=== PATIENT | male | born 1940 | race Caucasian/White ===

== ENCOUNTER 2018-04-22 08:01 | Emergency (ER) | payer OTHER ==
--- OUTSIDE RECORDS SUMMARY | 2018-04-22 08:05 | XMS REPORT | Clinical Summary ---
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 - Goal of therapy for Type II Diabetes Less than 7%-Goal of therapy for Type I Diabetes Less than 8%-Acceptable control for Type I or Type II Diabetes Greater than 8%-Unacceptable control; action indicated. (ADA94) Specimen Performing Laboratory Blood [facility] DEPARTMENT OF PATHOLOGY AND GENOMIC MEDICINE [address] [place] [address] Lipid panel (07/17/2017 4:11 AM) Component Value Ref Range Cholesterol 124 <200 mg/dL Triglycerides 85 <150 mg/dL HDL cholesterol 35 (L) >40 mg/dL LDL cholesterol 77Comment: Result obtained by direct LDL <100 mg/dL measurement Lipid panel interpretation SeeBelow Comment: Total Cholesterol (mg/dL) <200 Desirable 658-326Sftqpkzada-czbt >=240High Triglycerides (mg/dL) <150 Normal 912-157Rapnsyrpii-wykw 200-499High >=500Very high HDL Cholesterol (mg/dL) <40Low (male) <40Low (female) LDL Cholesterol (mg/dL) <100 Optimal 100-129Near or above optimal 261-057Iiuudbdfll-rpdw 160-189High >=190Very high Risk Catergories that modify LDL goals. Risk CatergoriesLDL goal (mg/dL) CHD and CHD risk equivalent<100 (10-year risk >20%) Multiple (2+) risk factors <130 (10-year risk=<20%) 0-1 risk factors <160 (<10-year risk) Defining levels of lipids in metabolic syndrome Triglycerides>=150 mg/dL HDL Cholesterol Men<40 mg/dL Women<40 mg/dL Non-HDL cholesterol is a second target for therapy in persons with high triglycerides (>=200 mg/dL) Specimen Performing Laboratory Plasma specimen [facility] DEPARTMENT OF PATHOLOGY AND GENOMIC MEDICINE [address] [place] [address] XR Chest 1 Vw Portable (07/16/2017 10:24 PM) Specimen Performing Laboratory [facility] [address] [place] [address] Narrative EXAMINATION: XR CHEST 1 VW PORTABLE CLINICAL HISTORY: History of pulmonary embolus COMPARISON: PA and lateral chest, obtained on 09/18/2009. FINDINGS: Bedside examination again demonstrates mild cardiomegaly. Vascular congestion, pleural fluid and pneumothorax are not seen. Bibasilar volume loss or infiltrate, more prominent on the right, is seen. IMPRESSION: Basilar atelectasis or infiltrate, greater on the right. [facility]-[id number] Procedure Note Interface, Radiology Results Incoming - 07/17/2017 12:16 AM CDT EXAMINATION: XR CHEST 1 VW PORTABLE CLINICAL HISTORY: History of pulmonary embolus COMPARISON: PA and lateral chest, obtained on 09/18/2009. FINDINGS: Bedside examination again demonstrates mild cardiomegaly. Vascular congestion, pleural fluid and pneumothorax are not seen. Bibasilar volume loss or infiltrate , more prominent on the right, is seen. IMPRESSION: Basilar atelectasis or infiltrate, greater on the right. [facility]-[id number] Notify Home Health (06/30/2017)Only the most recent of4 resultswithin the time period is included.Miscellaneous Lab Result (06/21/2017)Only the most recent of3 resultswithin the time period is included. Specimen Performing Laboratory Blood Home health needs (specify) (06/04/2017)Only the most recent of3 resultswithin the time period is included.MD certification IP hospital services (05/03/2017) Ambulatory referral to Home Health (04/30/2017)Only the most recent of2 resultswithin the time period is included.after 04/21/2017 Insurance Payer Benefit Plan / Group Subscriber ID Type Phone Address [facility] xxxxxxxxxxx [phone] [place], [place] [phone]
[2018-04-22 09:27] LABS: Absolute Lymphocytes (CBC) 1.3 K/uL (0.7-4.9); Absolute Monocytes 0.6 K/uL (0.1-1.3); Absolute Neutrophil 6.1 K/uL (1.8-8.0); Basophils % 0.5 % (0-1.3); Eosinophils % 1.1 % (0-4.4); Hematocrit 43.6 % (39.6-49.0); Lymphocytes % 15.8 % (15.3-44.8); MCH 31.7 pg (27.0-35.0); MCV 95.2 fL (80-100); MPV 7.8 fL (7.6-11.3); Monocytes % 7.5 % (3.3-12.3); RBC Red Blood Cell Count 4.57 M/uL (4.33-5.43)
[2018-04-22 09:28] LABS: Protime INR 3.82
--- NOTE | 2018-04-22 10:36 | EDPHYS ---
Physician Documentation [facility] Name: Elbert Miller Age: 77 yrs Sex: Male : 1940 Arrival Date: 04/22/2018 Time: 08:16 Bed 15 Private MD: ED Physician Todd Longo HPI: 04/22 10:30 This 77 yrs old Male presents to ER via EMS with complaints of Urinary gs Problem, Blood In Catheter. 10:30 The patient presents with a Sims catheter problem, draining bloody urine. Onset: The gs symptoms/episode began/occurred yesterday, last night. Modifying factors: The symptoms are alleviated by nothing, the symptoms are aggravated by nothing. Associated signs and symptoms: Pertinent positives: abdominal pain, now resolved, Pertinent negatives: fever. Severity of symptoms: At their worst the symptoms were moderate, in the emergency department the symptoms are unchanged. The patient has experienced similar episodes in the past, a few times. Historical: - Allergies: 08:23 chlorpromazine HCl; ae1 08:23 fluoxetine HCl; ae1 08:23 paroxetine HCl; ae1 08:23 Sulfa (Sulfonamide Antibiotics); ae1 - Home Meds: 08:46 phenazopyridine 200 mg Oral tab 1 tab 3 times per day [Active]; pantoprazole 40 mg Oral ae1 TbEC 1 tab once daily [Active]; trazodone 100 mg Oral tab 1 tab nightly [Active]; Cipro 500 mg Oral tab 1 tab every 12 hours [Active]; trimethoprim 100 mg Oral tab 1 tab daily [Active]; Multiple Vitamins oral tab [Active]; warfarin 5 mg Oral tab 1 tab once daily [Active]; sertraline 50 mg Oral tab 1 tab once daily [Active]; hydromorphone 4 mg Oral tab 1 tab every 6 hours [Active]; nitrofurantoin macrocrystal 100 mg Oral cap 1 cap q 12 hours [Active]; gabapentin 600 mg Oral tab 1 tab four times a day [Active]; Claritin-D 24 Hour 10-240 mg Oral Tb24 1 tab once daily [Active]; Vitamin D Oral [Active]; Iron CR Oral [Active]; Zantac 150 mg Oral tab 1 tab 2 times per day [Active]; metoprolol tartrate 25 mg Oral tab 1 tab 2 times per day [Active]; - PMHx: 08:23 blood clot in lungs; CHF; Hernia; Hypertension; lymphadema bilateral legs; neuropathy ae1 of right leg; PE; - Immunization history:: Adult Immunizations up to date. - Social history:: Smoking status: Patient/guardian denies using tobacco. - Ebola Screening: : Patient negative for fever greater than or equal to 101.5 degrees Fahrenheit, and additional compatible Ebola Virus Disease symptoms Patient denies exposure to infectious person Patient denies travel to an Ebola-affected area in the 21 days before illness onset. ROS: 10:30 All other systems are negative. gs Exam: 10:30 Head/Face: Normocephalic, atraumatic. Neck: Trachea midline, no thyromegaly or masses gs palpated, and no cervical lymphadenopathy. Supple, full range of motion without nuchal rigidity, or vertebral point tenderness. No Meningismus. Cardiovascular: Regular rate and rhythm with a normal S1 and S2. No gallops, murmurs, or rubs. Normal PMI, no JVD. No pulse deficits. Respiratory: Lungs have equal breath sounds bilaterally, clear to auscultation and percussion. No rales, rhonchi or wheezes noted. No increased work of breathing, no retractions or nasal flaring. Abdomen/GI: Soft, non-tender, with normal bowel sounds. No distension or tympany. No guarding or rebound. No evidence of tenderness throughout. 10:30 Constitutional: The patient appears alert, awake. 10:30 : a sims is noted, urine is clear, blood tinged. 10:30 Neuro: Exam negative for acute changes. Vital Signs: 08:17 BP 110 / 63; Pulse 108; Resp 19; Temp 97.6(O); Pulse Ox 97% on R/A; Weight 165.11 kg ae1 (R); Pain 6/10; 09:46 BP 102 / 87; Pulse 85; Resp 19 S; Pulse Ox 97% ; ae1 MDM: 08:59 Patient medically screened. gs 10:30 Data reviewed: vital signs, nurses notes. ED course: cleared with irrigation will hold gs coumadin and repeat inr wednesday. 04/22 09: Order name: CBC with Diff; Complete Time: 09:45 04/22 09: Order name: PT-INR; Complete Time: 09:45 04/22 09:01 Order name: Misc. Order: irrigate sims; Complete Time: 09:31 04/22 09:50 Order name: Urine Dipstick--Ancillary (enter results) bd Administered Medications: No medications were administered Disposition: 04/22/18 10:36 Discharged to Home. Impression: Hematuria, Urinary catheterization as the cause of abnormal reaction of the patient, or of later complication, without mention of misadventure at the time of the procedure. - Condition is Stable. - Discharge Instructions: Hematuria, Adult. - Medication Reconciliation Form, Thank You Letter, Antibiotic Education, Prescription Opioid Use form. - Follow up: Private Physician; When: 2 - 3 days; Reason: Re-evaluation by your physician. - Notes: hold coumadin today, get inr wednesday Signatures: Dispatcher [employer] EDBrooks Anderson RN RN ae1 Todd Longo MD MD Corrections: (The following items were deleted from the chart) 11:30 10:36 04/22/2018 10:36 Discharged to Home. Impression: Hematuria; Urinary ae1 catheterization as the cause of abnormal reaction of the patient, or of later complication, without mention of misadventure at the time of the procedure. Condition is Stable. Forms are Medication Reconciliation Form, Thank You Letter, Antibiotic Education, Prescription Opioid Use. Follow up: Private Physician; When: 2 - 3 days; Reason: Re-evaluation by your physician.
--- NOTE | 2018-04-22 10:36 | ER ---
Nurse's Notes [facility] Name: Elbert Miller Age: 77 yrs Sex: Male : 1940 Arrival Date: 04/22/2018 Time: 08:16 Bed 15 Private MD: Diagnosis: Hematuria;Urinary catheterization as the cause of abnormal reaction of the patient, or of later complication, without mention of misadventure at the time of the procedure Presentation: 04/22 08:24 Presenting complaint: Patient states: Patient reports blood in his Hannah appliance bag ae1 that started this morning when he woke up. Patient also reports lower abdominal pain. Transition of care: patient was not received from another setting of care. Onset of symptoms was April 22, 2018 at 06:00. Risk Assessment: Do you want to hurt yourself or someone else? Patient reports no desire to harm self or others. Initial Sepsis Screen: Does the patient meet any 2 criteria? HR > 90 bpm. Does the patient have a suspected source of infection? Yes: Dysuria/Frequency/Urgency/UTI Other: Patient is currently on a course of Bactrim for a UTI. Care prior to arrival: Medication(s) given: 100 mcg Fentanyl IVP at 0737 IV initiated. 22 GA, in the left forearm, Glucose check: 155. 08:24 Method Of Arrival: EMS: [facility] ae1 08:24 Acuity: [place] 3 ae1 Triage Assessment: 08:29 General: Appears in no apparent distress. comfortable, obese, unkempt, Behavior is ae1 calm, cooperative. Pain: Complains of pain in right lower quadrant and left lower quadrant Pain currently is 6 out of 10 on a pain scale. Pain began gradually. EENT: wears glasses. Neuro: Level of Consciousness is awake, alert, obeys commands, Oriented to person, place, time, situation. Cardiovascular:. Cardiovascular: Heart tones S1 S2 present Rhythm is irregular. Respiratory: Airway is patent Respiratory effort is even, unlabored, Respiratory pattern is regular, symmetrical. GI: Abdomen is round obese. : Hannah in place Urine is Dark Brownish Red urine Tissue and sediment noted in Hannah tubing. Reports pain in suprapubic area. Derm: Significant swelling and discoloration to the RADHA lower extremities. Skin in this area appears scaly, darkened and reddened. Musculoskeletal: Swelling present in right foot, left foot, right leg and left leg. Historical: - Allergies: 08:23 chlorpromazine HCl; ae1 08:23 fluoxetine HCl; ae1 08:23 paroxetine HCl; ae1 08:23 Sulfa (Sulfonamide Antibiotics); ae1 - Home Meds: 08:46 phenazopyridine 200 mg Oral tab 1 tab 3 times per day [Active]; pantoprazole 40 mg Oral ae1 TbEC 1 tab once daily [Active]; trazodone 100 mg Oral tab 1 tab nightly [Active]; Cipro 500 mg Oral tab 1 tab every 12 hours [Active]; trimethoprim 100 mg Oral tab 1 tab daily [Active]; Multiple Vitamins oral tab [Active]; warfarin 5 mg Oral tab 1 tab once daily [Active]; sertraline 50 mg Oral tab 1 tab once daily [Active]; hydromorphone 4 mg Oral tab 1 tab every 6 hours [Active]; nitrofurantoin macrocrystal 100 mg Oral cap 1 cap q 12 hours [Active]; gabapentin 600 mg Oral tab 1 tab four times a day [Active]; Claritin-D 24 Hour 10-240 mg Oral Tb24 1 tab once daily [Active]; Vitamin D Oral [Active]; Iron CR Oral [Active]; Zantac 150 mg Oral tab 1 tab 2 times per day [Active]; metoprolol tartrate 25 mg Oral tab 1 tab 2 times per day [Active]; - PMHx: 08:23 blood clot in lungs; CHF; Hernia; Hypertension; lymphadema bilateral legs; neuropathy ae1 of right leg; PE; - Immunization history:: Adult Immunizations up to date. - Social history:: Smoking status: Patient/guardian denies using tobacco. - Ebola Screening: : Patient negative for fever greater than or equal to 101.5 degrees Fahrenheit, and additional compatible Ebola Virus Disease symptoms Patient denies exposure to infectious person Patient denies travel to an Ebola-affected area in the 21 days before illness onset. Screenin:44 Abuse screen: Denies threats or abuse. Nutritional screening: No deficits noted. ae1 Tuberculosis screening: No symptoms or risk factors identified. Fall Risk No fall in past 12 months (0 pts). Secondary diagnosis (15 points) impaired mobility, IV access (20 points). Ambulatory Aid- Crutches/Cane/Walker (15 pts). Gait- Impaired (20 pts.). Mental Status- Oriented to own ability (0 pts). Assessment: 10:35 Reassessment: Patient appears in no apparent distress at this time. No changes from ae1 previously documented assessment. Patient and/or family updated on plan of care and expected duration. Pain level reassessed. 10:36 Reassessment: Patient states he is calling for a ride home. ae1 11:29 Reassessment: Report and hand off care to EMS. ae1 Vital Signs: 08:17 BP 110 / 63; Pulse 108; Resp 19; Temp 97.6(O); Pulse Ox 97% on R/A; Weight 165.11 kg ae1 (R); Pain 6/10; 09:46 BP 102 / 87; Pulse 85; Resp 19 S; Pulse Ox 97% ; ae1 ED Course: 08:16 Patient arrived in ED. ae1 08:16 Todd Longo MD is Attending Physician. 08:17 Brooks Gaspar RN is Primary Nurse. ae1 08:28 Triage completed. ae1 08:28 Arm band placed on right wrist. ae1 08:28 Bed in low position. Call light in reach. Side rails up X2. Pulse ox on. NIBP on. Warm ae1 blanket given. 08:37 Maintain EMS IV. Dressing intact. Site clean \T\ dry. Gauge \T\ site: 22 Left forearm . ae 1 09:30 190 mls sterile irrigation fluid used to irrigate Hannah, Approx 190 mls returned yellow ae1 urine. 09:36 Urine collected: Hannah catheter specimen, cloudy. 5 09:44 Warm blanket given. ae1 11:27 No provider procedures requiring assistance completed. IV discontinued, intact, ae1 bleeding controlled, No redness/swelling at site. Pressure dressing applied. Administered Medications: No medications were administered Outcome: 10:36 Discharge ordered by . 11:28 Discharged to home On stretcher with EMS ae1 11:28 Condition: stable 11:28 Discharge instructions given to patient, EMS, Instructed on discharge instructions, follow up and referral plans. Demonstrated understanding of instructions. 11:30 Patient left the ED. ae1 Signatures: Brooks Gaspar RN RN 1 Kayce Duncan [facility] Longo, Todd, MD MD gs
[2018-04-22 10:44] LABS: Urine Blood 3+ (NEG); Urine Glucose NEGATIVE (NEG); Urine Protein NEGATIVE (NEG); Urine Specific Gravity <1.005 (1.005-1.030)
[2018-04-22 11:36] VITALS: TEMP 97.6; O2SAT 97
[2018-04-22 11:37] VITALS: BP 102/87
== END 2018-04-22 11:30 | disposition home or self-care (01) ==
LOC: ER 08:01
DX: T83.098A Other mechanical complication of other urinary catheter, initial encounter (principal); I10 Essential (primary) hypertension; I50.9 Heart failure, unspecified; Z79.01 Long term (current) use of anticoagulants; Z88.2 Allergy status to sulfonamides; Z88.8 Allergy status to other drugs, medicaments and biological substances
CPT/HCPCS: 36415; 81003; 85025; 85610; 99284

== ENCOUNTER 2018-04-22 19:35 | Emergency (ER) | payer OTHER ==
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
[2018-04-22] MEDS ORDERED: NA CHLORIDE 0.9% 1,000 ML ONE (21:18)
[2018-04-22] MEDS ORDERED: ONDANSETRON 4 MG/2 ML VIAL ONE (21:18)
[2018-04-22] MEDS ORDERED: FENTANYL CITR 100 MCG/2 ML ONE (21:18)
[2018-04-22 21:34] LABS: Absolute Lymphocytes (CBC) 1.6 K/uL (0.7-4.9); Absolute Monocytes 0.8 K/uL (0.1-1.3); Absolute Neutrophil 5.6 K/uL (1.8-8.0); Basophils % 0.6 % (0-1.3); Eosinophils % 1.5 % (0-4.4); Lymphocytes % 19.4 % (15.3-44.8); MCH 32.5 pg (27.0-35.0); MCV 93.6 fL (80-100); MPV 7.5 fL (7.6-11.3); Monocytes % 9.5 % (3.3-12.3); RBC Red Blood Cell Count 4.38 M/uL (4.33-5.43)
[2018-04-22] MEDS ORDERED: CEFTRIAXONE/SWI 1gm 1 GM/10 ML SYR ONE (21:34)
[2018-04-22 21:35] LABS: Protime INR 3.54
[2018-04-22 21:45] LABS: Potassium 4.2 mEq/L (3.6-5.0)
[2018-04-22 21:48] LABS: Albumin 3.3 g/dL (3.2-5.5); Bilirubin Total 0.6 mg/dL (0.3-1.2); Protein, Total 6.9 g/dL (6.0-8.3)
[2018-04-22 22:05] LABS: Urine Blood 3+ (NEG); Urine Glucose NEGATIVE (NEG); Urine Protein NEGATIVE (NEG)
[2018-04-22] MEDS ORDERED: AMOX/K CLAV 875 MG TAB ONE (22:53)
--- NOTE | 2018-04-22 23:23 | ER ---
Nurse's Notes [facility] Name: Elbert Miller Age: 77 yrs Sex: Male : 1940 Arrival Date: 04/22/2018 Time: 19:53 Bed 13 Private MD: Diagnosis: Cystitis;Hematuria;Coagulation defect, unspecified-coumadin therapy;Obesity, unspecified Presentation: 04/22 19:53 Presenting complaint: EMS states: he was here this morning for hematuria and UTI for a mg2 month. He is already on antibiotic at home. He has Hannah catheter in situ inserted last April 04, 2018. He is also complaining of lower back pain and suprapubic pain. Transition of care: patient was not received from another setting of care. Onset of symptoms was April 20, 2018. Risk Assessment: Do you want to hurt yourself or someone else? Patient reports no desire to harm self or others. Initial Sepsis Screen: Does the patient meet any 2 criteria? No. Patient's initial sepsis screen is negative. Does the patient have a suspected source of infection? No. Patient's initial sepsis screen is negative. Care prior to arrival: None. 19:53 Method Of Arrival: EMS: [facility] mg2 19:53 Acuity: [place] 3 mg2 Historical: - Allergies: 20:04 chlorpromazine HCl; mg2 20:04 fluoxetine HCl; mg2 20:04 Sulfa (Sulfonamide Antibiotics); mg2 20:04 paroxetine HCl; mg2 - Home Meds: 20:04 Ambien 10 mg Oral tab 1 tab once daily [Active]; Cipro 500 mg Oral tab 1 tab every 12 mg2 hours [Active]; Claritin-D 24 Hour 10-240 mg Oral Tb24 1 tab once daily [Active]; Coumadin 2 mg Oral tab 1 tab 6 days a week Wed-Wed, 1/2 tab on Wednesday [Active]; gabapentin 600 mg Oral tab 1 tab four times a day [Active]; hydromorphone 8 mg Oral tab 1 tab every 6 hours [Active]; hydromorphone 4 mg Oral tab 1 tab every 6 hours [Active]; Iron CR Oral [Active]; lorazepam 0.5 mg Oral tab 1 tab 3 times per day [Active]; metoprolol tartrate 25 mg Oral tab 1 tab 2 times per day [Active]; Multiple Vitamins Oral tab [Active]; nitrofurantoin macrocrystal 100 mg Oral cap 1 cap q 12 hours [Active]; [place] 10-325 mg Oral tab 1 tab every 6 hours [Active]; pantoprazole 40 mg Oral TbEC 1 tab once daily [Active]; phenazopyridine 200 mg Oral tab 1 tab 3 times per day [Active]; sertraline 50 mg Oral tab 1 tab once daily [Active]; tramadol 50 mg Oral tab 1 tab every 6 hours [Active]; trazodone 100 mg Oral tab 1 tab nightly [Active]; trimethoprim 100 mg Oral tab 1 tab daily [Active]; Vitamin D Oral [Active]; warfarin 5 mg Oral tab 1 tab once daily [Active]; Zantac 150 mg Oral tab 1 tab 2 times per day [Active]; - PMHx: 20:04 blood clot in lungs; CHF; Hernia; Hypertension; lymphadema bilateral legs; neuropathy 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 - Social history:: Smoking status: Patient/guardian denies using. - Ebola Screening: : No symptoms or risks identified at this time. Screenin:11 Abuse screen: Denies threats or abuse. Denies injuries from another. Nutritional mg2 screening: No deficits noted. Tuberculosis screening: No symptoms or risk factors identified. Fall Risk Gait- Weak (10 pts.). Assessment: 20:11 General: Appears in no apparent distress. comfortable, Behavior is calm, cooperative. mg2 Pain: Complains of pain in abdomen and back Pain does not radiate. Pain currently is 9 out of 10 on a pain scale. Quality of pain is described as aching, Pain began gradually, Is intermittent. Neuro: Level of Consciousness is awake, alert, obeys commands, Oriented to person, place, time, situation. Cardiovascular: Capillary refill < 3 seconds Patient's skin is warm and dry. Respiratory: Airway is patent Respiratory effort is even, unlabored, Respiratory pattern is regular, symmetrical. GI: Abdomen is pain. : Hannah in place Urine is blood tinged. EENT: No signs and/or symptoms were reported regarding the EENT system. Derm: Skin is intact, Skin is pink, warm \T\ dry. normal. Musculoskeletal: No signs and/or symptoms reported regarding the musculoskeletal system. 20:54 Reassessment: Patient appears in no apparent distress at this time. Patient and/or mg2 family updated on plan of care and expected duration. Pain level reassessed. Patient is alert, oriented x 3, equal unlabored respirations, skin warm/dry/pink. Pt continues to await initial assessment by ERP. 21:33 Reassessment: Patient appears in no apparent distress at this time. Patient and/or aa1 family updated on plan of care and expected duration. Pain level reassessed. Patient is alert, oriented x 3, equal unlabored respirations, skin warm/dry/pink. Awaiting lab results and CT scan. 21:40 Reassessment: Patient appears in no apparent distress at this time. Pt taken to CT. aa1 23:56 Reassessment: patient is for discharge but nobody will come and take him home til 2 am. mg2 charge nurse agreed that patient can stay in ed til that person comes. 0602 00:42 Reassessment: Patient appears in no apparent distress at this time. Patient and/or aa1 family updated on plan of care and expected duration. Pain level reassessed. Patient is alert, oriented x 3, equal unlabored respirations, skin warm/dry/pink. Pt still waiting for ride home. Requesting IV and monitoring equipment be removed since he is just waiting for transportation home. 01:43 Reassessment: Patient appears in no apparent distress at this time. Patient and/or aa1 family updated on plan of care and expected duration. Pain level reassessed. Patient is alert, oriented x 3, equal unlabored respirations, skin warm/dry/pink. Pt continues to await transportation home. Hannah bag drained of sera urine. Pt still refusing monitoring equipment for v/s. 02:45 Reassessment: Patient appears in no apparent distress at this time. Patient and/or aa1 family updated on plan of care and expected duration. Pain level reassessed. Patient is alert, oriented x 3, equal unlabored respirations, skin warm/dry/pink. Pt continues to await transportation home; still refusing monitoring equipment for v/s. 03:46 Reassessment: Patient appears in no apparent distress at this time. Patient and/or aa1 family updated on plan of care and expected duration. Pain level reassessed. Patient is alert, oriented x 3, equal unlabored respirations, skin warm/dry/pink. Pt continues to await transportation home; still refusing monitoring equipment for v/s. 04:37 Reassessment: Patient appears in no apparent distress at this time. Patient and/or aa1 family updated on plan of care and expected duration. Pain level reassessed. Patient is alert, oriented x 3, equal unlabored respirations, skin warm/dry/pink. Pt's family present for d/c. Hannah emptied of yellow urine. Vital Signs: 04/22 20:05 BP 143 / 111; Pulse 79; Resp 18; Temp 97.9(O); Pulse Ox 98% on R/A; Weight 165.56 kg; mg2 Height 5 ft. 10 in. (177.80 cm); Pain 9/10; 21:00 BP 105 / 56; Pulse 95; Resp 18; Pulse Ox 96% on R/A; Pain 9/10; aa1 21:35 BP 111 / 63; Pulse 97; Resp 20; Pulse Ox 97% on R/A; aa1 22:40 BP 129 / 80; Pulse 89; Resp 18; Pulse Ox 97% ; Pain 7/10; mg2 04/23 00:09 BP 131 / 99; Pulse 66; Resp 18; Pulse Ox 97% on R/A; Pain 0/10; mg2 01:00 BP 143 / 92; Pulse 96; Resp 18; Pulse Ox 98% on R/A; Pain 5/10; aa1 04:47 BP 138 / 89; Pulse 97; Resp 20; Temp 98.0; Pulse Ox 97% on R/A; aa1 04/22 20:05 Body Mass Index 52.37 (165.56 kg, 177.80 cm) mg2 ED Course: 04/22 19:53 Patient arrived in ED. mg2 19:56 Triage completed. mg2 19:57 Ross Mckenna MD is Attending Physician. deborah 20:06 Arm band placed on right wrist. Patient placed in the treatment room, on a stretcher, mg2 in view of staff members, on pulse oximetry. 20:10 Rod Talley, PAU is Primary Nurse. mg2 20:11 Patient has correct armband on for positive identification. Bed in low position. Call ea light in reach. Side rails up X2. 21:10 Urine collected: Hannah catheter specimen, cloudy, sediment noted. aa1 21:24 Inserted saline lock: 22 gauge in left antecubital area, using aseptic technique. Blood ea collected. 22:05 CT Stone Protocol In Process Unspecified. EDMS 04/23 01:15 IV discontinued, intact, bleeding controlled, No redness/swelling at site. Pressure aa1 dressing applied. 04:48 No provider procedures requiring assistance completed. aa1 Administered Medications: 04/22 21:29 Drug: NS 0.9% 1000 ml Route: IV; Rate: 125 ml/hr; Site: left antecubital; mg2 21:29 Drug: fentaNYL (PF) 50 mcg Route: IVP; Site: left antecubital; mg2 22:57 Follow up: Response: No adverse reaction; Pain is decreased mg2 21:29 Drug: Zofran 4 mg Route: IVP; Site: left antecubital; mg2 22:49 Follow up: Response: No adverse reaction mg2 21:37 Drug: Rocephin - (cefTRIAXone) 1 grams Route: IVPB; Infused Over: 30 mins; Site: left aa1 antecubital; 22:56 Follow up: Response: No adverse reaction mg2 22:56 Drug: Augmentin 875 mg Route: PO; mg2 23:56 Follow up: Response: No adverse reaction mg2 Outcome: 23:22 Discharge ordered by . deborah 04/23 04:48 Discharged to home via wheelchair, with family. aa1 Condition: good Discharge instructions given to patient, family, Instructed on discharge instructions, follow up and referral plans. medication usage, Demonstrated understanding of instructions, follow-up care, medications, Prescriptions given X 2. 04:49 Patient left the ED. aa1 Addendum: 04/27/2018 17:17 Addendum: Culture Results: Positive urine culture. Phone call Attempt #1 Spoke with s s patient who asks to have culture report faxed over to urologist in [place], Dr. Celso Stoner. Will fax over culture report. Signatures: Dispatcher [employer] EDMS Jessika Almanza RN RN aa1 Ross Mckenna MD MD cha Smirch, Shelby, RN RN ss Antunez, Elena, RN RN ea Gardose, Michele, RN RN mg2 Corrections: (The following items were deleted from the chart) 04/22 23:12 22:40 Pulse 89bpm; Resp 18bpm; Pulse Ox 97%; mg2 mg2 04/23 00:07 04/22 23:56 Reassessment: patient is for discharge but nobody will come and take him mg2 home til 2 am. charge nurse to be informed. mg2
--- NOTE | 2018-04-22 23:23 | EDPHYS ---
Physician Documentation [facility] Name: Elbert Miller Age: 77 yrs Sex: Male : 1940 Arrival Date: 04/22/2018 Time: 19:53 Bed 13 Private MD: ED Physician Ross Mckenna HPI: 04/22 21:11 This 77 yrs old Male presents to ER via EMS with complaints of hematuria, deborah sims pain. 21:11 The patient presents with urinary symptoms, dysuria, hematuria. Onset: The deborah symptoms/episode began/occurred 2 day(s) ago. Modifying factors: The symptoms are alleviated by nothing, the symptoms are aggravated by nothing. Associated signs and symptoms: The patient has no apparent associated signs or symptoms. Severity of symptoms: At their worst the symptoms were mild, in the emergency department the symptoms are unchanged. The patient has not experienced similar symptoms in the past. Historical: - Allergies: 20:04 chlorpromazine HCl; mg2 20:04 fluoxetine HCl; mg2 20:04 Sulfa (Sulfonamide Antibiotics); mg2 20:04 paroxetine HCl; mg2 - Home Meds: 20:04 Ambien 10 mg Oral tab 1 tab once daily [Active]; Cipro 500 mg Oral tab 1 tab every 12 mg2 hours [Active]; Claritin-D 24 Hour 10-240 mg Oral Tb24 1 tab once daily [Active]; Coumadin 2 mg Oral tab 1 tab 6 days a week Wed-Wed, 1/2 tab on Wednesday [Active]; gabapentin 600 mg Oral tab 1 tab four times a day [Active]; hydromorphone 8 mg Oral tab 1 tab every 6 hours [Active]; hydromorphone 4 mg Oral tab 1 tab every 6 hours [Active]; Iron CR Oral [Active]; lorazepam 0.5 mg Oral tab 1 tab 3 times per day [Active]; metoprolol tartrate 25 mg Oral tab 1 tab 2 times per day [Active]; Multiple Vitamins Oral tab [Active]; nitrofurantoin macrocrystal 100 mg Oral cap 1 cap q 12 hours [Active]; [place] 10-325 mg Oral tab 1 tab every 6 hours [Active]; pantoprazole 40 mg Oral TbEC 1 tab once daily [Active]; phenazopyridine 200 mg Oral tab 1 tab 3 times per day [Active]; sertraline 50 mg Oral tab 1 tab once daily [Active]; tramadol 50 mg Oral tab 1 tab every 6 hours [Active]; trazodone 100 mg Oral tab 1 tab nightly [Active]; trimethoprim 100 mg Oral tab 1 tab daily [Active]; Vitamin D Oral [Active]; warfarin 5 mg Oral tab 1 tab once daily [Active]; Zantac 150 mg Oral tab 1 tab 2 times per day [Active]; - PMHx: 20:04 blood clot in lungs; CHF; Hernia; Hypertension; lymphadema bilateral legs; neuropathy 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 - Social history:: Smoking status: Patient/guardian denies using. - Ebola Screening: : No symptoms or risks identified at this time. ROS: 21:13 Constitutional: Negative for fever, chills, and weight loss, Eyes: Negative for injury, deborah pain, redness, and discharge, ENT: Negative for injury, pain, and discharge, Neck: Negative for injury, pain, and swelling, Cardiovascular: Negative for chest pain, palpitations, and edema, Respiratory: Negative for shortness of breath, cough, wheezing, and pleuritic chest pain, Abdomen/GI: Negative for abdominal pain, nausea, vomiting, diarrhea, and constipation, Back: Negative for injury and pain, MS/Extremity: Negative for injury and deformity, Skin: Negative for injury, rash, and discoloration, Neuro: Negative for headache, weakness, numbness, tingling, and seizure, Psych: Negative for depression, anxiety, suicide ideation, homicidal ideation, and hallucinations, Allergy/Immunology: Negative for hives, rash, and allergies, Endocrine: Negative for neck swelling, polydipsia, polyuria, polyphagia, and marked weight changes, Hematologic/Lymphatic: Negative for swollen nodes, abnormal bleeding, and unusual bruising. 21:13 : Positive for hematuria, of the suprapubic area. Exam: 21:13 Constitutional: This is a well developed, well nourished patient who is awake, alert, deborah and in no acute distress. Head/Face: Normocephalic, atraumatic. Eyes: Pupils equal round and reactive to light, extra-ocular motions intact. Lids and lashes normal. Conjunctiva and sclera are non-icteric and not injected. Cornea within normal limits. Periorbital areas with no swelling, redness, or edema. ENT: Nares patent. No nasal discharge, no septal abnormalities noted. Tympanic membranes are normal and external auditory canals are clear. Oropharynx with no redness, swelling, or masses, exudates, or evidence of obstruction, uvula midline. Mucous membranes moist. Neck: Trachea midline, no thyromegaly or masses palpated, and no cervical lymphadenopathy. Supple, full range of motion without nuchal rigidity, or vertebral point tenderness. No Meningismus. Chest/axilla: Normal chest wall appearance and motion. Nontender with no deformity. No lesions are appreciated. Cardiovascular: Regular rate and rhythm with a normal S1 and S2. No gallops, murmurs, or rubs. Normal PMI, no JVD. No pulse deficits. Respiratory: Lungs have equal breath sounds bilaterally, clear to auscultation and percussion. No rales, rhonchi or wheezes noted. No increased work of breathing, no retractions or nasal flaring. Back: No spinal tenderness. No costovertebral tenderness. Full range of motion. Male : Normal genitalia with no discharge or lesions. Skin: Warm, dry with normal turgor. Normal color with no rashes, no lesions, and no evidence of cellulitis. MS/ Extremity: Pulses equal, no cyanosis. Neurovascular intact. Full, normal range of motion. Neuro: Awake and alert, GCS 15, oriented to person, place, time, and situation. Cranial nerves II-XII grossly intact. Motor strength 5/5 in all extremities. Sensory grossly intact. Cerebellar exam normal. Normal gait. Psych: Awake, alert, with orientation to person, place and time. Behavior, mood, and affect are within normal limits. 21:13 Abdomen/GI: Inspection: distension, Bowel sounds: normal, Palpation: moderate abdominal tenderness, Liver: no appreciated palpable abnormalities, Hernia: not appreciated. Vital Signs: 20:05 BP 143 / 111; Pulse 79; Resp 18; Temp 97.9(O); Pulse Ox 98% on R/A; Weight 165.56 kg; mg2 Height 5 ft. 10 in. (177.80 cm); Pain 9/10; 21:00 BP 105 / 56; Pulse 95; Resp 18; Pulse Ox 96% on R/A; Pain 9/10; aa1 21:35 BP 111 / 63; Pulse 97; Resp 20; Pulse Ox 97% on R/A; aa1 22:40 BP 129 / 80; Pulse 89; Resp 18; Pulse Ox 97% ; Pain 7/10; mg2 04/23 00:09 BP 131 / 99; Pulse 66; Resp 18; Pulse Ox 97% on R/A; Pain 0/10; mg2 01:00 BP 143 / 92; Pulse 96; Resp 18; Pulse Ox 98% on R/A; Pain 5/10; aa1 04:47 BP 138 / 89; Pulse 97; Resp 20; Temp 98.0; Pulse Ox 97% on R/A; aa1 04/22 20:05 Body Mass Index 52.37 (165.56 kg, 177.80 cm) mg2 MDM: 04/22 19:57 Patient medically screened. [facility] 21:14 Data reviewed: vital signs, nurses notes, lab test result(s), radiologic studies, CT deborah scan. 04/22 21:09 Order name: CBC with Diff; Complete Time: 22:42 [facility] 04/22 21:09 Order name: Comprehensive Metabolic Panel; Complete Time: 22:42 [facility] 04/22 21:09 Order name: Urine Culture [facility] 04/22 21:09 Order name: CT Stone Protocol [facility] 04/22 21:14 Order name: PT-INR; Complete Time: 22:42 [facility] 04/22 21:22 Order name: Urine Dipstick--Ancillary (enter results); Complete Time: 22:42 04/22 21:09 Order name: Urine Dipstick-Ancillary (obtain specimen); Complete Time: 21:19 [facility] Administered Medications: 21:29 Drug: NS 0.9% 1000 ml Route: IV; Rate: 125 ml/hr; Site: left antecubital; mg2 21:29 Drug: fentaNYL (PF) 50 mcg Route: IVP; Site: left antecubital; mg2 22:57 Follow up: Response: No adverse reaction; Pain is decreased mg2 21:29 Drug: Zofran 4 mg Route: IVP; Site: left antecubital; mg2 22:49 Follow up: Response: No adverse reaction mg2 21:37 Drug: Rocephin - (cefTRIAXone) 1 grams Route: IVPB; Infused Over: 30 mins; Site: left aa1 antecubital; 22:56 Follow up: Response: No adverse reaction mg2 22:56 Drug: Augmentin 875 mg Route: PO; mg2 23:56 Follow up: Response: No adverse reaction mg2 Disposition: 04/22/18 23:22 Discharged to Home. Impression: Cystitis, Hematuria, Coagulation defect, unspecified - coumadin therapy, Obesity, unspecified. - Condition is Stable. - Discharge Instructions: Dysuria, Hematuria, Adult, Obesity. - Prescriptions for Augmentin 500- 125 mg Oral Tablet - take 1 tablet by ORAL route every 12 hours for 7 days; 14 tablet. Macrobid 100 mg Oral Capsule - take 1 capsule by ORAL route every 12 hours for 7 days; 14 capsule. - Medication Reconciliation Form, Thank You Letter, Antibiotic Education, Prescription Opioid Use form. - Follow up: Private Physician; When: 2 - 3 days; Reason: Recheck today's complaints, Continuance of care, Re-evaluation by your physician. - Problem is new. - Symptoms have improved. Signatures: Dispatcher [employer] EDMS Jessika Almanza RN RN aa1 Ross Mckenna MD MD cha Gardose, Michele, RN RN mg2 Corrections: (The following items were deleted from the chart) 04/23 04:49 04/22 23:22 04/22/2018 23:22 Discharged to Home. Impression: Cystitis; Hematuria; aa1 Coagulation defect, unspecified - coumadin therapy; Obesity, unspecified. Condition is Stable. Discharge Instructions: Dysuria, Hematuria, Adult. Prescriptions for Augmentin 500-125 mg Oral Tablet - take 1 tablet by ORAL route every 12 hours for 7 days; 14 tablet, Macrobid 100 mg Oral Capsule - take 1 capsule by ORAL route every 12 hours for 7 days; 14 capsule. and Forms are Medication Reconciliation Form, Thank You Letter, Antibiotic Education, Prescription Opioid Use. Follow up: Private Physician; When: 2 - 3 days; Reason: Recheck today's complaints, Continuance of care, Re-evaluation by your physician. Problem is new. Symptoms have improved. deborah
[2018-04-23 04:59] VITALS: BP 138/89; TEMP 98; O2SAT 97
--- NOTE | 2018-04-23 09:36 | RAD REPORT ---
EXAM DESCRIPTION: CT - Stone Protocol - 04/23/2018 3:24 am CLINICAL HISTORY: Abdominal pain, back pain, history of UTI A preliminary written report was provided at the time of the study, and the report was reviewed prio r to final dictation. COMPARISON: CT July 2016 TECHNIQUE: Axial [address] imaging of the abdomen and pelvis was performed without IV contrast. No IV contrast was given because of allergy, abnormal renal function, patient refusal or physician re quest. Oral contrast was given. All CT scans are performed using dose optimization technique as appropriate and may include automated exposure control or mA/KV adjustment according to patient size. FINDINGS: No suspicious findings in the lung bases. The liver, spleen and pancreas show no acute findings on non-contrast imaging. Fat infiltration of th e pancreas is again noted. Gallbladder is absent. No biliary tree dilatation. No hydronephrosis or suspicious renal mass. No significant adrenal finding. Isodense renal masses an d pyelonephritis cannot be excluded in the absence of IV contrast. Urinary bladder is contracted arou nd a Hannah catheter. Artifacts are present along the floor the pelvis to patient's large body habitus . Postsurgical changes are noted to the stomach. Stomach is compartmentalized with a large amount of fl uid filling both compartments. No gastric wall thickening or mass. Bowel is only partially imaged. Rusty brock has a very large panniculus with much of the bowel extending off of the left-side [id number] . Attempts to position the patient to better image the bowel and panniculus were unsuccessful as the patient indicated he was in too much pain. Imaged portions of the bowel and peritoneal cavity showed no acute findings. No free air is identified. Most of the anterior abdominal wall cannot be imaged. T here is a very thin fascial layer that is partially imaged. No bulky lymphadenopathy or mass identifi able. Disc and bony degenerative changes are present. IMPRESSION: No acute abdominal or pelvic finding seen; however, the exam is substantially limit. The patient has very large panniculus which places much of the bowel and abdominal wall outside of th e field of view. Patient was unable to tolerate repositioning of the panniculus due to pain. Nonacute findings are detailed in the body of the report and stable from comparison. Full assessment is limited is the absence of IV contrast.
== END 2018-04-23 04:49 | disposition home or self-care (01) ==
LOC: ER 19:35
DX: N30.91 Cystitis, unspecified with hematuria (principal); D68.9 Coagulation defect, unspecified; Z79.01 Long term (current) use of anticoagulants; E66.9 Obesity, unspecified; I10 Essential (primary) hypertension; Z88.2 Allergy status to sulfonamides; Z88.8 Allergy status to other drugs, medicaments and biological substances
CPT/HCPCS: 36415; 74176; 76377; 80053; 81003; 85025; 85610; 87077; 87086; 87088; 87186; 96374; 96375; 99284; J0696; J2405; J3010; J7030

== ENCOUNTER 2018-04-28 19:49 | Inpatient (IN) | payer OTHER ==
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
[2018-04-28 21:01] LABS: Urine Blood TRACE (NEG); Urine Glucose NEGATIVE (NEG); Urine Protein NEGATIVE (NEG); Urine Specific Gravity 1.015 (1.005-1.030)
--- NOTE | 2018-04-28 21:02 | EDPHYS ---
Physician Documentation [facility] Name: Elbert Miller Age: 77 yrs Sex: Male : 1940 Arrival Date: 04/28/2018 Time: 19:54 Bed 14 Private MD: ED Physician Ross Mckenna HPI: 04/28 20:52 This 77 yrs old Male presents to ER via EMS with complaints of Urinary deborah Problem. 20:52 The patient presents with a Sims catheter problem, draining cloudy urine, flank pain, deborah of the left mid back and right mid back, urinary symptoms, dysuria, has sims. Onset: The symptoms/episode began/occurred 3 day(s) ago. Modifying factors: The symptoms are alleviated by nothing, the symptoms are aggravated by nothing. The patient presents with pain that is chronic, with no known mechanism of injury, and decreased range of motion. The symptoms are located in the lumbar area, left low back, left mid back, right mid back and right low back. Onset: The symptoms/episode began/occurred 2 week(s) ago. The pain does not radiate. Severity of symptoms: At their worst the symptoms were mild, moderate, in the emergency department the symptoms are unchanged. Historical: - Allergies: 19:59 chlorpromazine HCl; rv 19:59 fluoxetine HCl; rv 19:59 paroxetine HCl; rv 19:59 Sulfa (Sulfonamide Antibiotics); rv - Home Meds: 20:16 Ambien 10 mg Oral tab 1 tab once daily [Active]; Cipro 500 mg Oral tab 1 tab every 12 bs1 hours [Active]; Claritin-D 24 Hour 10-240 mg Oral Tb24 1 tab once daily [Active]; Coumadin 2 mg Oral tab 1 tab 6 days a week Wed-Wed, 1/2 tab on Wednesday [Active]; gabapentin 600 mg Oral tab 1 tab four times a day [Active]; hydromorphone 8 mg Oral tab 1 tab every 6 hours [Active]; hydromorphone 4 mg Oral tab 1 tab every 6 hours [Active]; Iron CR Oral [Active]; lorazepam 0.5 mg Oral tab 1 tab 3 times per day [Active]; metoprolol tartrate 25 mg Oral tab 1 tab 2 times per day [Active]; Multiple Vitamins Oral tab [Active]; nitrofurantoin macrocrystal 100 mg Oral cap 1 cap q 12 hours [Active]; Beaver 10-325 mg Oral tab 1 tab every 6 hours [Active]; pantoprazole 40 mg Oral TbEC 1 tab once daily [Active]; phenazopyridine 200 mg Oral tab 1 tab 3 times per day [Active]; sertraline 50 mg Oral tab 1 tab once daily [Active]; tramadol 50 mg Oral tab 1 tab every 6 hours [Active]; trazodone 100 mg Oral tab 1 tab nightly [Active]; trimethoprim 100 mg Oral tab 1 tab daily [Active]; Vitamin D Oral [Active]; warfarin 5 mg Oral tab 1 tab once daily [Active]; Zantac 150 mg Oral tab 1 tab 2 times per day [Active]; - PMHx: 19:59 blood clot in lungs; CHF; Hernia; Hypertension; lymphadema bilateral legs; neuropathy rv of right leg; PE; 20:16 Atrial Fib; restless leg syndrome; spinal stenosis; herniated disc; Arthritis; bs1 - PSHx: 20:16 shoulder sx; Cholecystectomy; bs1 - Immunization history:: Adult Immunizations up to date. - Social history:: Smoking status: Patient/guardian denies using tobacco. - Ebola Screening: : Patient negative for fever greater than or equal to 101.5 degrees Fahrenheit, and additional compatible Ebola Virus Disease symptoms Patient denies exposure to infectious person Patient denies travel to an Ebola-affected area in the 21 days before illness onset No symptoms or risks identified at this time. - Family history:: not pertinent. ROS: 20:52 Constitutional: Negative for fever, chills, and weight loss, Eyes: Negative for injury, deborah pain, redness, and discharge, ENT: Negative for injury, pain, and discharge, Neck: Negative for injury, pain, and swelling, Cardiovascular: Negative for chest pain, palpitations, and edema, Respiratory: Negative for shortness of breath, cough, wheezing, and pleuritic chest pain, Abdomen/GI: Negative for abdominal pain, nausea, vomiting, diarrhea, and constipation, MS/Extremity: Negative for injury and deformity, Skin: Negative for injury, rash, and discoloration, Neuro: Negative for headache, weakness, numbness, tingling, and seizure, Psych: Negative for depression, anxiety, suicide ideation, homicidal ideation, and hallucinations, Allergy/Immunology: Negative for hives, rash, and allergies, Endocrine: Negative for neck swelling, polydipsia, polyuria, polyphagia, and marked weight changes, Hematologic/Lymphatic: Negative for swollen nodes, abnormal bleeding, and unusual bruising. 20:52 Back: Positive for decreased range of motion, pain at rest, pain with movement. 20:52 : Positive for flank pain, has indwelling sims. Exam: 20:52 Constitutional: This is a well developed, well nourished patient who is awake, alert, deborah and in no acute distress. Head/Face: Normocephalic, atraumatic. Eyes: Pupils equal round and reactive to light, extra-ocular motions intact. Lids and lashes normal. Conjunctiva and sclera are non-icteric and not injected. Cornea within normal limits. Periorbital areas with no swelling, redness, or edema. ENT: Nares patent. No nasal discharge, no septal abnormalities noted. Tympanic membranes are normal and external auditory canals are clear. Oropharynx with no redness, swelling, or masses, exudates, or evidence of obstruction, uvula midline. Mucous membranes moist. Neck: Trachea midline, no thyromegaly or masses palpated, and no cervical lymphadenopathy. Supple, full range of motion without nuchal rigidity, or vertebral point tenderness. No Meningismus. Chest/axilla: Normal chest wall appearance and motion. Nontender with no deformity. No lesions are appreciated. Respiratory: Lungs have equal breath sounds bilaterally, clear to auscultation and percussion. No rales, rhonchi or wheezes noted. No increased work of breathing, no retractions or nasal flaring. Abdomen/GI: Soft, non-tender, with normal bowel sounds. No distension or tympany. No guarding or rebound. No evidence of tenderness throughout. Male : Normal genitalia with no discharge or lesions. Skin: Warm, dry with normal turgor. Normal color with no rashes, no lesions, and no evidence of cellulitis. MS/ Extremity: Pulses equal, no cyanosis. Neurovascular intact. Full, normal range of motion. Neuro: Awake and alert, GCS 15, oriented to person, place, time, and situation. Cranial nerves II-XII grossly intact. Motor strength 5/5 in all extremities. Sensory grossly intact. Cerebellar exam normal. Normal gait. Psych: Awake, alert, with orientation to person, place and time. Behavior, mood, and affect are within normal limits. 20:52 Cardiovascular: Rate: tachycardic, Rhythm: regular, Pulses: Heart sounds: normal, Edema: is not appreciated, JVD: is not appreciated. Vital Signs: 20:05 BP 121 / 83 LA Supine (auto/lg); Pulse 112; Resp 18 S; Temp 97.9(O); Pulse Ox 98% on bs1 R/A; Weight 165.56 kg (R); Height 5 ft. 10 in. (177.80 cm); Pain 7/10; 21:44 BP 126 / 99; Pulse 98; Resp 16; Pulse Ox 95% ; bp 20:05 Body Mass Index 52.37 (165.56 kg, 177.80 cm) bs1 MDM: 19:58 Patient medically screened. [facility] 20:52 Data reviewed: vital signs, nurses notes, lab test result(s), EKG, radiologic studies, [facility] CT scan, plain films. 04/28 20:51 Order name: Basic Metabolic Panel [facility] 04/28 20:51 Order name: BNP [facility] 04/28 20:51 Order name: CBC with Diff [facility] 04/28 20:51 Order name: Ckmb [facility] 04/28 20:51 Order name: CPK [facility] 04/28 20:51 Order name: LFT's [facility] 04/28 20:51 Order name: Magnesium [facility] 04/28 20:51 Order name: PT-INR [facility] 04/28 20:51 Order name: Ptt, Activated [facility] 04/28 20:51 Order name: Troponin (emerg Dept Use Only) [facility] 04/28 20:51 Order name: XRAY Chest (1 view) [facility] 04/28 20:51 Order name: Lipase [facility] 04/28 20:51 Order name: Urine Culture [facility] 04/28 20:54 Order name: Urine Dipstick--Ancillary (enter results) or 04/28 20:51 Order name: EKG; Complete Time: 20:52 [facility] 04/28 20:51 Order name: Cardiac monitoring; Complete Time: 21:33 [facility] 04/28 20:51 Order name: EKG - Nurse/Tech; Complete Time: 21:44 [facility] 04/28 20:51 Order name: IV Saline Lock; Complete Time: 21:12 [facility] 04/28 20:51 Order name: Labs collected and sent; Complete Time: 21:12 [facility] 04/28 20:51 Order name: O2 Per Protocol; Complete Time: 20:57 [facility] 04/28 20:51 Order name: O2 Sat Monitoring; Complete Time: 20:54 [facility] 04/28 20:51 Order name: Urine Dipstick-Ancillary (obtain specimen); Complete Time: 20:54 [facility] 04/28 21:06 Order name: CONS Physician Consult EDMS 04/28 21:37 Order name: RAD EDHI Administered Medications: 21:20 Drug: fentaNYL (PF) 50 mcg Route: IVP; Site: left forearm; bp 21:43 Follow up: Response: Pain is decreased bp 21:20 Drug: Zofran 4 mg Route: IVP; Site: left forearm; bp 21:43 Follow up: Response: Nausea is decreased bp 21:26 Drug: NS 0.9% 500 ml Route: IV; Rate: bolus; Site: left antecubital; rv 21:43 Follow up: IV Status: Completed infusion bp 21:26 Drug: Cefepime 2 grams Route: IVPB; Rate: 200 ml/hr; Infused Over: 30 mins; Site: left rv antecubital; 21:43 Follow up: IV Status: Completed infusion bp Disposition: 04/28/18 21:01 Hospitalization ordered by Jose Gomez for Inpatient Admission. Preliminary diagnosis are Cystitis, Obesity, unspecified, Ventral hernia. - Bed requested for Telemetry/MedSurg (Inpatient). - Status is Inpatient Admission. bs1 - Condition is Fair. - Problem is new. - Symptoms have improved. UTI on Admission? Yes Signatures: [facility] Madelaine Santizo RN RN mw Anderson, Corey, MD MD cha Peltier, Brian RN RN bp Leslie Wiggins RN RN bs1 Armand Varghese RN RN rv Corrections: (The following items were deleted from the chart) 21:20 21:01 Hospitalization Ordered by Jose Gomez MD for Inpatient Admission. Preliminary rachel diagnosis is Cystitis; Obesity, unspecified; Ventral hernia. Bed requested for Telemetry/MedSurg (Inpatient). Status is Inpatient Admission. Condition is Fair. Problem is new. Symptoms have improved. UTI on Admission? Yes. [facility] 22:25 21:20 04/28/2018 21:01 Hospitalization Ordered by Jose Gomez MD for Inpatient bs1 Admission. Preliminary diagnosis is Cystitis; Obesity, unspecified; Ventral hernia. Bed requested for Telemetry/MedSurg (Inpatient). Status is Inpatient Admission. Condition is Fair. Problem is new. Symptoms have improved. UTI on Admission? Yes. mw
--- NOTE | 2018-04-28 21:02 | ER ---
Nurse's Notes [facility] Name: Elbert Miller Age: 77 yrs Sex: Male : 1940 Arrival Date: 04/28/2018 Time: 19:54 Bed 14 Private MD: Diagnosis: Cystitis;Obesity, unspecified;Ventral hernia Presentation: 04/28 19:55 Presenting complaint: EMS states: HIS UROLOGIST AND HOME HEALTH TOLD HIM TO COME IN FOR rv A PICC LINE FOR HOME ANTIBIOTICS BECAUSE OF HIS UTI. Transition of care: patient was not received from another setting of care. Onset of symptoms is unknown. Risk Assessment: Do you want to hurt yourself or someone else? Patient reports no desire to harm self or others. Initial Sepsis Screen: Does the patient meet any 2 criteria? HR > 90 bpm. No. Patient's initial sepsis screen is negative. Does the patient have a suspected source of infection? Yes: Catheter related infection (Santos/dialysis/PICC/central line). Care prior to arrival: None. HOME SANTOS. 19:55 Method Of Arrival: EMS: [facility] rv 19:55 Acuity: [place] 3 rv Triage Assessment: 19:59 General: Appears in no apparent distress. comfortable, obese, Behavior is calm, rv cooperative, appropriate for age. Pain: Complains of pain in low back area and mid back area. EENT: No deficits noted. Neuro: Level of Consciousness is awake, alert, obeys commands, Oriented to person, place, time, situation, Appropriate for age. Cardiovascular: No deficits noted. Respiratory: Airway is patent Respiratory effort is even, unlabored, Respiratory pattern is regular, symmetrical. GI: No signs and/or symptoms were reported involving the gastrointestinal system. : Santos in place. Derm: No signs and/or symptoms reported regarding the dermatologic system. Musculoskeletal: Circulation, motion, and sensation intact. Range of motion: limited in left hip, left knee, left ankle, right hip, right knee and right ankle. Historical: - Allergies: 19:59 chlorpromazine HCl; rv 19:59 fluoxetine HCl; rv 19:59 paroxetine HCl; rv 19:59 Sulfa (Sulfonamide Antibiotics); rv - Home Meds: 20:16 Ambien 10 mg Oral tab 1 tab once daily [Active]; Cipro 500 mg Oral tab 1 tab every 12 bs1 hours [Active]; Claritin-D 24 Hour 10-240 mg Oral Tb24 1 tab once daily [Active]; Coumadin 2 mg Oral tab 1 tab 6 days a week Wed-Wed, 1/2 tab on Wednesday [Active]; gabapentin 600 mg Oral tab 1 tab four times a day [Active]; hydromorphone 8 mg Oral tab 1 tab every 6 hours [Active]; hydromorphone 4 mg Oral tab 1 tab every 6 hours [Active]; Iron CR Oral [Active]; lorazepam 0.5 mg Oral tab 1 tab 3 times per day [Active]; metoprolol tartrate 25 mg Oral tab 1 tab 2 times per day [Active]; Multiple Vitamins Oral tab [Active]; nitrofurantoin macrocrystal 100 mg Oral cap 1 cap q 12 hours [Active]; Cowden 10-325 mg Oral tab 1 tab every 6 hours [Active]; pantoprazole 40 mg Oral TbEC 1 tab once daily [Active]; phenazopyridine 200 mg Oral tab 1 tab 3 times per day [Active]; sertraline 50 mg Oral tab 1 tab once daily [Active]; tramadol 50 mg Oral tab 1 tab every 6 hours [Active]; trazodone 100 mg Oral tab 1 tab nightly [Active]; trimethoprim 100 mg Oral tab 1 tab daily [Active]; Vitamin D Oral [Active]; warfarin 5 mg Oral tab 1 tab once daily [Active]; Zantac 150 mg Oral tab 1 tab 2 times per day [Active]; - PMHx: 19:59 blood clot in lungs; CHF; Hernia; Hypertension; lymphadema bilateral legs; neuropathy rv of right leg; PE; 20:16 Atrial Fib; restless leg syndrome; spinal stenosis; herniated disc; Arthritis; bs1 - PSHx: 20:16 shoulder sx; Cholecystectomy; bs1 - Immunization history:: Adult Immunizations up to date. - Social history:: Smoking status: Patient/guardian denies using tobacco. - Ebola Screening: : Patient negative for fever greater than or equal to 101.5 degrees Fahrenheit, and additional compatible Ebola Virus Disease symptoms Patient denies exposure to infectious person Patient denies travel to an Ebola-affected area in the 21 days before illness onset No symptoms or risks identified at this time. - Family history:: not pertinent. Screenin:09 Abuse screen: Denies threats or abuse. Denies injuries from another. Nutritional bs1 screening: No deficits noted. Tuberculosis screening: No symptoms or risk factors identified. Fall Risk None identified. Assessment: 20:04 General: Appears uncomfortable, slender, Behavior is calm, cooperative, appropriate for bs1 age. Pain: Complains of pain in back and mid back area and low back area. Neuro: Level of Consciousness is awake, alert, obeys commands, Oriented to person, place, time, situation, Appropriate for age Speech is normal, Facial symmetry appears normal. Cardiovascular: Denies chest pain, shortness of breath, Heart tones S1 S2 present Capillary refill < 3 seconds Patient's skin is warm and dry. Respiratory: Airway is patent Trachea midline Respiratory effort is even, unlabored, Respiratory pattern is regular, symmetrical, Breath sounds are clear bilaterally. GI: Abdomen is round obese, umbilical hernia, abdominal hernia, and inguinal hernia noted Bowel sounds present X 4 quads. : Santos in place to gravity drainage administered by home health IPH Urine is cloudy, Reports pain in bilateral flank(s), patient reported having blood in urine about a week ago. EENT: No signs and/or symptoms were reported regarding the EENT system. Derm: lymphedema noted to bilateral legs, discolored. Musculoskeletal: Circulation, motion, and sensation intact. Capillary refill < 3 seconds. 21:45 Reassessment: No changes from previously documented assessment. Patient and/or family bs1 updated on plan of care and expected duration. Pain level reassessed. Patient is alert, oriented x 3, equal unlabored respirations, skin warm/dry/pink. Pending admission to 4th floor. 22:15 Reassessment: Patient refused gown, states he has multiple shirts with him. bs1 Vital Signs: 20:05 BP 121 / 83 LA Supine (auto/lg); Pulse 112; Resp 18 S; Temp 97.9(O); Pulse Ox 98% on bs1 R/A; Weight 165.56 kg (R); Height 5 ft. 10 in. (177.80 cm); Pain 7/10; 21:44 BP 126 / 99; Pulse 98; Resp 16; Pulse Ox 95% ; bp 20:05 Body Mass Index 52.37 (165.56 kg, 177.80 cm) bs1 ED Course: 19:54 Patient arrived in ED. rv 19:57 Triage completed. rv 19:58 Ross Mckenna MD is Attending Physician. deborah 19:59 Arm band placed on. rv 20:01 Leslie Wiggins, PAU is Primary Nurse. bs1 20:09 Patient has correct armband on for positive identification. Bed in low position. Call bs1 light in reach. Side rails up X 1. Pulse ox on. NIBP on. 20:57 Jose Gomez MD is Hospitalizing Provider. deborah 21:00 Inserted saline lock: 20 gauge in left forearm, using aseptic technique. bp 21:19 X-ray completed. Portable x-ray completed in exam room. Patient tolerated procedure kc2 well. 21:45 No provider procedures requiring assistance completed. Patient admitted, IV remains in bp place. Administered Medications: 21:20 Drug: fentaNYL (PF) 50 mcg Route: IVP; Site: left forearm; bp 21:43 Follow up: Response: Pain is decreased bp 21:20 Drug: Zofran 4 mg Route: IVP; Site: left forearm; bp 21:43 Follow up: Response: Nausea is decreased bp 21:26 Drug: NS 0.9% 500 ml Route: IV; Rate: bolus; Site: left antecubital; rv 21:43 Follow up: IV Status: Completed infusion bp 21:26 Drug: Cefepime 2 grams Route: IVPB; Rate: 200 ml/hr; Infused Over: 30 mins; Site: left rv antecubital; 21:43 Follow up: IV Status: Completed infusion bp Outcome: 21:01 Decision to Hospitalize by Provider. deborah 21:45 Condition: stable bp 21:45 Instructed on the need for admit. 22:24 Admitted to Tele accompanied by nurse, accompanied by tech, via stretcher, room 415, bs1 with chart, Report called to Navya Renteria RN 22:25 Patient left the ED. bs1 Signatures: Ross Mckenna MD MD cha Carr, Kelsie kc2 Alexander Wisdom, PAU MAI bp Leslie Wiggins, RN RN bs1 Armand Varghese, PAU RN rv
[2018-04-28] MEDS ORDERED: CEFEPIME 2 GM VIAL ONE (21:11)
[2018-04-28] MEDS ORDERED: NA CHLORIDE 0.9% 500 ML ONE (21:12)
[2018-04-28] MEDS ORDERED: NA CHLORIDE 0.9% 100 ML IV ONE (21:12)
[2018-04-28] MEDS ORDERED: FENTANYL CITR 100 MCG/2 ML ONE (21:15)
[2018-04-28] MEDS ORDERED: ONDANSETRON 4 MG/2 ML VIAL ONE (21:15)
[2018-04-28 21:28] LABS: Absolute Lymphocytes (CBC) 1.8 K/uL (0.7-4.9); Absolute Monocytes 0.7 K/uL (0.1-1.3); Basophils % 0.4 % (0-1.3); Eosinophils % 1.2 % (0-4.4); Hematocrit 43.8 % (39.6-49.0); Lymphocytes % 23.7 % (15.3-44.8); MCH 32.1 pg (27.0-35.0); MCV 94.9 fL (80-100); MPV 7.5 fL (7.6-11.3); Monocytes % 9.6 % (3.3-12.3); RBC Red Blood Cell Count 4.61 M/uL (4.33-5.43)
[2018-04-28 21:31] LABS: Protime INR 2.51
[2018-04-28 21:32] LABS: Potassium 4.6 mEq/L (3.6-5.0)
[2018-04-28] MEDS ORDERED: MORPHINE 2 MG/ML SYR IV PRN (21:32)
[2018-04-28] MEDS ORDERED: ACETAMINOPHEN 500 MG TAB PO PRN (21:32)
[2018-04-28] MEDS ORDERED: ONDANSETRON 4 MG/2 ML VIAL IV PRN (21:32)
[2018-04-28] MEDS ORDERED: CEFTRIAXONE 1 GM/NS 50 ML 1 GM/50 ML BAG IV ONE (21:33)
[2018-04-28] MEDS ORDERED: DOCUSATE NA 100 MG CAP PO PRN (21:34)
--- NOTE | 2018-04-28 21:36 | RAD REPORT ---
EXAM DESCRIPTION: Karen Single View04/28/2018 9:22 pm CLINICAL HISTORY: cough COMPARISON: August 2016 FINDINGS: The lungs appear clear of acute infiltrate. The heart is mildly enlarged IMPRESSION: No acute abnormalities displayed
[2018-04-28 21:38] LABS: Albumin 3.4 g/dL (3.2-5.5); Bilirubin Direct 0.1 mg/dL (0-0.2); Bilirubin Total 0.4 mg/dL (0.3-1.2); Protein, Total 7.4 g/dL (6.0-8.3)
[2018-04-28 21:40] LABS: CKMB Creatine Kinase MB 0.6 ng/ml (0.3-4.0)
[2018-04-28] MEDS ORDERED: CEFTRIAXONE/SWI 1gm 1 GM/10 ML SYR ONE ×2 (22:48→23:31)
[2018-04-28 23:12] VITALS: BMI 53.4
[2018-04-28] MEDS: NA CHLORIDE 0.9% 1,000 ML IV SCH (23:23)
[2018-04-29] MEDS: DIPHENHYDRAMINE 25 MG TAB/CAP PO SCH ×2 (00:22→20:57)
[2018-04-29] MEDS: TRAZODONE 50 MG TABLET PO SCH ×3 (00:22→21:03)
[2018-04-29] MEDS ORDERED: HYDROMORPHONE ORAL 4 MG TAB PO PRN (00:31)
[2018-04-29] MEDS ORDERED: GABAPENTIN 300 MG CAP PO ONE (01:44)
[2018-04-29] MEDS ORDERED: MICONAZOLE 2% TOPICAL 15 GM TOP SCH (02:13)
[2018-04-29 04:45] LABS: Absolute Monocytes 0.7 K/uL (0.1-1.3); Absolute Neutrophil 4.6 K/uL (1.8-8.0); Basophils % 0.2 % (0-1.3); Hematocrit 40.8 % (39.6-49.0); Lymphocytes % 26.9 % (15.3-44.8); MCH 31.9 pg (27.0-35.0); MCV 95.7 fL (80-100); MPV 7.6 fL (7.6-11.3); Monocytes % 9.7 % (3.3-12.3); RBC Red Blood Cell Count 4.26 M/uL (4.33-5.43)
[2018-04-29] MEDS ORDERED: LORazepam 2 MG/ML VIAL IV ONE (04:45)
[2018-04-29 05:13] LABS: Albumin 2.9 g/dL (3.2-5.5); Bilirubin Total 0.6 mg/dL (0.3-1.2); Potassium 4.3 mEq/L (3.6-5.0); Protein, Total 6.1 g/dL (6.0-8.3)
[2018-04-29] MEDS: METOPROLOL TAR 25 MG TAB PO SCH (05:48)
[2018-04-29] MEDS ORDERED: PHENAZOPYRIDINE 100MG TAB PO PRN (06:12)
[2018-04-29] MEDS ORDERED: RANITIDINE 150 MG TABLET PO PRN (06:12)
[2018-04-29] MEDS ORDERED: LORATADINE 10 MG TAB PO PRN (06:12)
--- NOTE | 2018-04-29 06:20 | P.HP ---
Certification for Inpatient Patient admitted to: Inpatient With expected LOS: >2 Midnights Patient will require the following post-hospital care: None Practitioner: I am a practitioner with admitting privileges, knowledge of patient current condition, hospital course, and medical plan of care. Services: Services provided to patient in accordance with Admission requirements found in Title 42 Section 412.3 of the Code of Federal Regulations Patient History Date of Service: 04/28/18 Reason for admission: UTI requiring IV antibiotics History of Present Illness: Patient is a 77-year-old gentleman with history of morbid obesity who was lives at home with caretakers. Patient is pretty much bed-bound however, he gets good care and has been able to do fairly well even at his weight. Patient has had some fever along with shakes and chills. He had a UA performed which suggested UTI. Patient's cultures grew out Enterococcus faecalis and E coli. Patient's E coli required IV antibiotics. Patient was admitted to the hospital for further evaluation. Patient is on numerous medications for his multiple comorbidities. Patient does not get around hardly at all. Patient be admitted to the hospital for PICC line placement and will start treatment with cefepime q.12 hr. Will have pharmacy to dose. Patient has been requesting a lot of his other chronic medications this evening. He has called the nurses station repeatedly. He also had his Dilaudid in his pockets. Will have his nurses get his prescriptions and syndrome next to his bed. Plan to continue IV antibiotics for 10-14 days. Allergies paroxetine HCl [From Paxil] Allergy (Intermediate, Verified 11/24/15 09:31) HALLUCINATIONS clopidogrel bisulfate [From Plavix] Allergy (Verified 11/24/15 09:31) Unknown Sulfa (Sulfonamide Antibiotics) Allergy (Verified 07/16/17 03:10) Hives chlorpromazine HCl [From Thorazine] Adverse Reaction (Intermediate, Verified 03:10) HALLUCINATIONS fluoxetine HCl [From Prozac] Adverse Reaction (Intermediate, Verified 07/16/17 03:10) HALLUCINATIONS thorazine Allergy (Uncoded 07/16/17 03:10) Unknown Home Medications: Gabapentin [Neurontin] 600 mg PO QID 07/16/17 Hydromorphone [Dilaudid] 4 mg PO Q6H 07/16/17 Loratadine [Claritin] 10 mg PO DAILYPRN PRN 07/16/17 Metoprolol Tartrate [Lopressor] 12.5 mg PO DAILY 07/16/17 Pantoprazole [Protonix Tab] 40 mg PO DAILY 07/16/17 Phenazopyrididine [Pyridium] 200 mg PO TIDP PRN 07/16/17 Sertraline HCl 50 mg PO DAILY 07/16/17 Trazodone [Desyrel] 100 mg PO BEDTIME 07/16/17 Trimethoprim 100 mg PO DAILY 07/16/17 diphenhydrAMINE HCl [Diphenhydramine HCl] 25 mg PO BEDTIME 07/16/17 Cholecalciferol (Vitamin D3) [Vitamin D3] 1,000 unit PO DAILY 04/29/18 Ferrous Sulfate [Feosol] 325 mg PO DAILY 04/29/18 Fluocinonide/Emollient Base [Fluocinonide-E 0.05% Cream] 1 appl TP BEDTIME 04/29 Mv,Minerals/FA/Lycopene/Ginkgo [One Daily Men's 50+ Tablet] 1 tab PO DAILY 04/29 Nitrofurantoin Macrocrystal [Macrodantin] 100 mg PO Q12H 04/29/18 Ranitidine [Zantac] 150 mg PO DAILYPRN PRN 04/29/18 Simethicone [Gas Relief] 250 mg PO BEDTIME 04/29/18 Warfarin Sodium [Coumadin] 2.5 mg PO SEECOM 04/29/18 Warfarin Sodium [Coumadin] 5 mg PO SEECOM 04/29/18 - Past Medical/Surgical History Has patient received pneumonia vaccine in the past: Yes Diabetic: No -: CHF -: HTN -: Lymphedema to the lower extremities -: Chronic indwelling urinary catheter -: Spinal stenosis of the back, chronic back pain -: History of DVT/PE, 1984, 1994 -: 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 -: GERD -: Iron deficiency anemia -: Large left-sided abdominal wall hernia -: Moderate-sized right sided abdominal wall hernia below the pannus. 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 He has no children. He is retired. 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 - Family History Father Medical History: Heart disease, Hypertension, GI disease - Social History Smoking Status: Never smoker Alcohol use: No CD- Drugs: No Caffeine use: Yes Place of Residence: Home Review of Systems 10-point ROS is otherwise unremarkable Physical Examination - Vital Signs Temperature: 97.3 F Blood Pressure: 123/63 Pulse: 93 Respirations: 20 Pulse Ox (%): 99 - Physical Exam General: Alert, In no apparent distress, Obese HEENT: Atraumatic, PERRLA, Mucous membr. moist/pink, EOMI, Sclerae nonicteric Neck: Supple, 2+ carotid pulse no bruit, No LAD, Without JVD or thyroid abnormality Respiratory: Diminished, Expiratory wheezes Cardiovascular: Regular rate/rhythm, Normal S1 S2, Systolic murmur Gastrointestinal: Normal bowel sounds, Soft and benign, Non-distended, No tenderness, Other (Ventral hernia with a large pannus) Musculoskeletal: No clubbing, No swelling, No tenderness Integumentary: No rashes Neurological: Normal speech, Normal tone, Sensation intact, Cranial nerves 3-12 intact, Normal affect, Abnormal gait, Abnormal strength Lymphatics: No axilla or inguinal lymphadenopathy - Studies Laboratory Data (last 24 hrs) 04/28/18 21:00: PT 29.9 H, INR 2.51, APTT 35.7 04/28/18 21:00: WBC 7.7, Hgb 14.8, Hct 43.8, Plt Count 180 04/28/18 21:00: B-Natriuretic Peptide 55 04/28/18 21:00: Sodium 135, Potassium 4.6, BUN 19, Creatinine 1.10, Glucose 128 H, Magnesium 2.0, Total Bilirubin 0.4, AST 25, ALT 26, Alkaline Phosphatase 60, Lipase 22 Assessment & Plan - Problems (Diagnosis) (1) MDRO (multiple drug resistant organisms) resistance Current Visit: No Status: Acute (2) UTI (urinary tract infection) Onset Date: 08/07/16 Current Visit: No Status: Acute (3) Urinary tract infection Current Visit: No Status: Acute (4) Back pain Current Visit: No Status: Chronic Qualifiers: (5) CHF (congestive heart failure) Onset Date: 08/24/16 Current Visit: No Status: Chronic Qualifiers: (6) Chronic indwelling Hannah catheter Current Visit: No Status: Chronic (7) Hypertension Current Visit: No Status: Chronic Qualifiers: (8) Lymphedema Current Visit: No Status: Chronic (9) Morbid obesity Onset Date: 08/24/16 Current Visit: No Status: Chronic (10) Pulmonary embolism Onset Date: 08/24/16 Current Visit: No Status: Chronic Qualifiers: - Plan Plan: 1. Continue with IV antibiotics 2. Pharmacy to dose antibiotics 3. PICC line placement 4. Arrange for home health 5. Anticipate discharge home in the next 48 hr 6. GI and DVT prophylaxis Discharge Plan: Home Plan to discharge in: 48 Hours - Advance Directives Does patient have a Living Will: Yes Does patient have a Durable POA for Healthcare: Yes - Code Status/Comfort Care Code Status Assessed: Yes Code Status: Full Code Critical Care: No Time Spent Managing PTS Care (In Minutes): 50
[2018-04-29] MEDS: HYDROMORPHONE ORAL 4 MG TAB PO SCH ×3 (06:56→18:00)
--- NOTE | 2018-04-29 07:21 | EKG ---
Test Date: 2018-04-28 Test Time: 21:35:35 Assurance Manager Insurance: MEASUREMENT RESULTS: Intervals: Rate: 0 CT: QRSD: 0 QT: 0 QTc: 0 [place]: P: CT: QRS: 0 T: 0 INTERPRETIVE STATEMENTS: No QRS complexes found, no ECG analysis possible Compared to ECG 07/15/2017 14:31:16 Atrial fibrillation no longer present Atrial abnormality no longer present Right bundle-branch block no longer present ST (T wave) deviation no longer present Electronically Signed On 04-29-18 07:19:39 CDT by Corey Navarrete
[2018-04-29] MEDS ORDERED: GINKGO PO SCH (09:00)
[2018-04-29] MEDS ORDERED: [UNRECOGNIZED DRUG - OTHER] PO SCH (09:00)
[2018-04-29] MEDS ORDERED: CEFEPIME 1 GM/VIAL IV SCH (09:00)
[2018-04-29] MEDS ORDERED: METOPROLOL TAR 25 MG TAB PO SCH (09:00)
[2018-04-29] MEDS ORDERED: LYCOPENE PO SCH (09:00)
[2018-04-29] MEDS ORDERED: TRIMETHOPRIM 100 MG PO SCH (09:00)
[2018-04-29] MEDS ORDERED: CEFEPIME/SWI 1gm 1 GM/10 ML SYR IV SCH (09:00)
[2018-04-29] MEDS: MICONAZOLE 2% TOPICAL 15 GM TOP SCH ×3 (09:00→21:03)
[2018-04-29] MEDS ORDERED: MV MINERALS PO SCH (09:00)
[2018-04-29] MEDS: NA CHLORIDE 0.9% 1,000 ML IV SCH ×3 (09:04→17:59)
[2018-04-29] MEDS: GABAPENTIN 300 MG CAP PO SCH ×4 (09:05→20:58)
[2018-04-29] MEDS: SERTRALINE HCL 50 MG TAB PO SCH (09:06)
[2018-04-29] MEDS: PANTOPRAZOLE 40MG TABLET PO SCH (09:06)
[2018-04-29] MEDS: FERROUS SULFATE 325 MG TAB PO SCH (09:06)
[2018-04-29] MEDS: VITAMIN D 1000 UNIT TAB PO SCH (09:06)
[2018-04-29] MEDS: TRIMETHOPRIM 100 MG TABLET PO SCH (09:56)
--- NOTE | 2018-04-29 16:26 | CON ---
History Of Present Illness: The patient is a 77-year-old male. I was consulted for multidrug resist ant E. coli and Enterococcus. The patient is not VRE or ESBL. The patient has just multidrug resist ant infection. Was brought in because of hematuria. The patient has an indwelling Hannah catheter an d is morbidly obese. Past Medical History: Includes congestive heart failure, hypertension, lymphedema, chronic indwellin g urinary catheter, spinal stenosis of the back, history of DVT and pulmonary embolism, GERD, iron de ficiency anemia, large left-sided abdominal wall hernia, morbid obesity, cholecystectomy, IVC [place] filter. Social History: Nonsmoker, nondrinker. Family History: Noncontributory. Medication: Currently on cefepime with no coverage for enterococcus. Allergies: SULFA DRUGS. Review of Systems: A 10-point review was performed. Physical Examination: General: This is a 77-year-old male, lying in bed, not in any acute cardiopulmonary distress. Vital Signs: Temperature 97, pulse 82, respiration 18, blood pressure 124/83, HEENT: Unremarkable. Neck: Supple. Lungs: Clear to auscultation. Heart: S1, S2. Regular. Abdomen: Soft, nontender. Bowel sounds present. Hernia noted on the right lower abdominal wall are a, 3+ nonpitting edema. Laboratory Data: Shows WBC 7.5, hemoglobin 13.6, platelets 162. Chemistry shows sodium 135, potassi um 4.3, chloride 101, bicarb 28, BUN 20, creatinine 0.98, glucose 130, albumin level is 2.9. Assessment And Plan: Urinary tract infection secondary to multidrug resistant Escherichia coli, not extended-spectrum beta-lactamase, Enterococcus faecalis, not vancomycin-resistant enterococci. We wi ll recommend to switch patient to Amoxil 500 mg q.8 hours for 10 days and Invanz 1 g IV piggyback onc e a day. If not, then cefepime 1 g q.12 hours for 10 days. We will follow the patient closely. Thank you Dr. Marin for consult. ALEXEY/MEGHANA Voice ID: [id number] Report ID: [id number]
[2018-04-29] MEDS ORDERED: WARFARIN SODIUM 5 MG TAB PO SCH ×2 (17:00)
--- NOTE | 2018-04-29 17:06 | P.PN ---
Subjective Date of Service: 04/29/18 Chief Complaint: UTI requiring IV antibiotics feels better no new complaints Physical Examination - Vital Signs Temperature: 97 F Blood Pressure: 112/65 Pulse: 93 Respirations: 20 Pulse Ox (%): 97 - Physical Exam General: Alert, In no apparent distress, Obese HEENT: Atraumatic, PERRLA, EOMI Neck: Supple, JVD not distended Respiratory: Clear to auscultation bilaterally, Normal air movement Cardiovascular: Regular rate/rhythm, Normal S1 S2 Gastrointestinal: Normal bowel sounds, No tenderness Musculoskeletal: No tenderness Integumentary: No rashes Neurological: Normal speech, Normal tone, Normal affect Lymphatics: No axilla or inguinal lymphadenopathy - Studies Laboratory Data (last 24 hrs) 04/28/18 21:00: PT 29.9 H, INR 2.51, APTT 35.7 04/28/18 21:00: WBC 7.7, Hgb 14.8, Hct 43.8, Plt Count 180 04/28/18 21:00: B-Natriuretic Peptide 55 04/28/18 21:00: Sodium 135, Potassium 4.6, BUN 19, Creatinine 1.10, Glucose 128 H, Magnesium 2.0, Total Bilirubin 0.4, AST 25, ALT 26, Alkaline Phosphatase 60, Lipase 22 Medications List Reviewed: Yes Assessment And Plan - Current Problems (Diagnosis) (1) UTI (urinary tract infection) Onset Date: 04/29/18 Current Visit: Yes Status: Acute Qualifiers: Urinary tract infection type: acute cystitis Hematuria presence: without hematuria Qualified Code(s): N30.00 - Acute cystitis without hematuria (2) Chronic indwelling Hannah catheter Onset Date: 04/29/18 Current Visit: Yes Status: Chronic (3) Hypertension Onset Date: 04/29/18 Current Visit: Yes Status: Chronic Qualifiers: (4) Lymphedema Onset Date: 04/29/18 Current Visit: Yes Status: Chronic (5) CHF (congestive heart failure) Onset Date: 08/24/16 Current Visit: No Status: Chronic Qualifiers: (6) History of pulmonary embolus (PE) Onset Date: 05/26/16 Current Visit: No Status: Chronic (7) Morbid obesity Onset Date: 08/24/16 Current Visit: No Status: Chronic - Plan UTI, MDR, E Coli, Enterococcus PLANS: --Cons ID. Rec Amoxil and Invanz --PICC Line today --DC home tomorrow, 10 days for IV ABX
[2018-04-29] MEDS ORDERED: ERTAPENEM SODIUM 1 GM VIAL IVPB SCH (18:00)
[2018-04-29] MEDS: WARFARIN SODIUM 5 MG TAB PO SCH (18:12)
[2018-04-29] MEDS: ERTAPENEM NA 1 GM in NA CHLORIDE 0.9% 100 ML IVPB SCH (18:30)
[2018-04-29] MEDS: AMOXICILLIN TRIHYDR 250 MG CAP PO SCH (20:57)
[2018-04-29] MEDS: SIMETHICONE 125 MG TAB PO SCH (20:59)
[2018-04-29] MEDS: APPL TP SCH (21:00)
[2018-04-29] MEDS: FLUOCINONIDE TP SCH (21:00)
[2018-04-29] MEDS: EMOLLIENT BASE TP SCH (21:00)
[2018-04-30] MEDS: HYDROMORPHONE ORAL 4 MG TAB PO SCH ×4 (02:03→18:21)
[2018-04-30] MEDS: NA CHLORIDE 0.9% 1,000 ML IV SCH ×2 (06:34→14:08)
[2018-04-30] MEDS: METOPROLOL TAR 25 MG TAB PO SCH (06:34)
--- NOTE | 2018-04-30 07:59 | EKG ---
Test Date: 2018-04-28 Test Time: 21:37:53 Sheep Shearer: MEASUREMENT RESULTS: Intervals: Rate: 82 [place]: QRSD: 114 QT: 400 QTc: 467 [place]: P: [place]: QRS: -36 T: 83 INTERPRETIVE STATEMENTS: Atrial fibrillation Left axis deviation Low voltage QRS Right bundle branch block Abnormal ECG Compared to ECG 04/28/2018 21:35:35 Left-axis deviation now present Low QRS voltage now present Right bundle-branch block now present Electronically Signed On 04-30-18 07:55:22 CDT by Corey Navarrete
[2018-04-30] MEDS: MICONAZOLE 2% TOPICAL 15 GM TOP SCH ×2 (09:00→20:38)
[2018-04-30] MEDS: TRIMETHOPRIM 100 MG TABLET PO SCH (09:00)
[2018-04-30] MEDS: AMOXICILLIN TRIHYDR 250 MG CAP PO SCH ×3 (09:36→20:37)
[2018-04-30] MEDS: VITAMIN D 1000 UNIT TAB PO SCH (09:36)
[2018-04-30] MEDS: GABAPENTIN 300 MG CAP PO SCH ×4 (09:36→20:38)
[2018-04-30] MEDS: MULTIVIT W/ MINERAL TAB PO SCH (09:37)
[2018-04-30] MEDS: SERTRALINE HCL 50 MG TAB PO SCH (09:37)
[2018-04-30] MEDS: PANTOPRAZOLE 40MG TABLET PO SCH (09:37)
[2018-04-30] MEDS: FERROUS SULFATE 325 MG TAB PO SCH (09:37)
[2018-04-30 12:28] LABS: Protime INR 3.35
[2018-04-30] MEDS: ERTAPENEM NA 1 GM in NA CHLORIDE 0.9% 100 ML IVPB SCH (16:55)
[2018-04-30] MEDS: GLUCERNA SHAKE 237 ML CAN PO SCH (17:00)
[2018-04-30] MEDS ORDERED: WARFARIN SODIUM 5 MG TAB PO SCH (17:00)
[2018-04-30] MEDS: DIPHENHYDRAMINE 25 MG TAB/CAP PO SCH (20:37)
[2018-04-30] MEDS: TRAZODONE 50 MG TABLET PO SCH (20:37)
[2018-04-30] MEDS: SIMETHICONE 125 MG TAB PO SCH (20:38)
[2018-04-30] MEDS: APPL TP SCH (21:00)
[2018-04-30] MEDS: FLUOCINONIDE TP SCH (21:00)
[2018-04-30] MEDS: EMOLLIENT BASE TP SCH (21:00)
[2018-04-30 22:49] VITALS: O2SAT 97
[2018-05-01] MEDS: HYDROMORPHONE ORAL 4 MG TAB PO SCH ×4 (00:09→18:00)
[2018-05-01 05:52] LABS: Protime INR 3.1
[2018-05-01] MEDS: METOPROLOL TAR 25 MG TAB PO SCH (06:04)
[2018-05-01] MEDS: MICONAZOLE 2% TOPICAL 15 GM TOP SCH ×2 (09:00→21:00)
[2018-05-01] MEDS: TRIMETHOPRIM 100 MG TABLET PO SCH (09:00)
[2018-05-01] MEDS: VITAMIN D 1000 UNIT TAB PO SCH (09:52)
[2018-05-01] MEDS: AMOXICILLIN TRIHYDR 250 MG CAP PO SCH ×3 (09:52→20:22)
[2018-05-01] MEDS: GABAPENTIN 300 MG CAP PO SCH ×4 (09:52→20:22)
[2018-05-01] MEDS: PANTOPRAZOLE 40MG TABLET PO SCH (09:52)
[2018-05-01] MEDS: MULTIVIT W/ MINERAL TAB PO SCH (09:52)
[2018-05-01] MEDS: SERTRALINE HCL 50 MG TAB PO SCH (09:52)
[2018-05-01] MEDS: FERROUS SULFATE 325 MG TAB PO SCH (09:52)
--- NOTE | 2018-05-01 10:15 | RAD REPORT ---
EXAM DESCRIPTION: RAD - Chest Single View - 04/30/2018 11:06 pm CLINICAL HISTORY: Device placement PICC line placement COMPARISON: April 28, 2018 FINDINGS: A PICC line has been inserted with its tip in the superior vena cava. The lungs appear clear of acute infiltrate. The heart is mildly to moderately enlarged. IMPRESSION: PICC line with its tip in the proximal superior vena cava
--- NOTE | 2018-05-01 10:32 | P.PN ---
Subjective Date of Service: 04/30/18 Subjective: No new changes, Improving Review of Systems 10-point ROS is otherwise unremarkable Physical Examination - Vital Signs Temperature: 98.4 F Blood Pressure: 109/66 Pulse: 70 Respirations: 18 Pulse Ox (%): 100 - Physical Exam General: Alert, In no apparent distress, Oriented x3 Respiratory: Clear to auscultation bilaterally, Normal air movement Cardiovascular: Regular rate/rhythm, Normal S1 S2, No murmurs Gastrointestinal: Normal bowel sounds, Soft and benign, Non-distended, No tenderness, No rebound, No guarding Musculoskeletal: No clubbing, No swelling, No tenderness Integumentary: No rashes Neurological: Normal speech, Normal strength at 5/5 x4 extr, Normal tone, Sensation intact, Cranial nerves 3-12 intact, Normal affect Lymphatics: No axilla or inguinal lymphadenopathy - Studies Medications List Reviewed: Yes Assessment & Plan - Problems (Diagnosis) (1) MDRO (multiple drug resistant organisms) resistance Onset Date: 04/29/18 Current Visit: Yes Status: Acute (2) UTI (urinary tract infection) Onset Date: 08/07/16 Current Visit: No Status: Acute (3) Urinary tract infection Current Visit: No Status: Acute (4) Back pain Onset Date: 04/29/18 Current Visit: Yes Status: Chronic Qualifiers: (5) CHF (congestive heart failure) Onset Date: 08/24/16 Current Visit: No Status: Chronic Qualifiers: (6) Chronic indwelling Hannah catheter Onset Date: 04/29/18 Current Visit: Yes Status: Chronic (7) Hypertension Onset Date: 04/29/18 Current Visit: Yes Status: Chronic Qualifiers: (8) Lymphedema Onset Date: 04/29/18 Current Visit: Yes Status: Chronic (9) Morbid obesity Onset Date: 08/24/16 Current Visit: No Status: Chronic (10) Pulmonary embolism Onset Date: 08/24/16 Current Visit: No Status: Chronic Qualifiers: - Plan Plan: Continue with current plan of care: 1. Continue with IV antibiotics 2. Pharmacy to dose antibiotics; arrange for IV antibiotics at discharge 3. PICC line placement to be performed today 4. Arrange for home health-patient has had [facility] home health in the past 5. Anticipate discharge home in the next 48 hr 6. GI and DVT prophylaxis - Advance Directives Does patient have a Living Will: Yes Does patient have a Durable POA for Healthcare: Yes - Code Status/Comfort Care Code Status: Full Code
[2018-05-01] MEDS: GLUCERNA SHAKE 237 ML CAN PO SCH (17:00)
[2018-05-01] MEDS: ERTAPENEM NA 1 GM in NA CHLORIDE 0.9% 100 ML IVPB SCH (17:58)
[2018-05-01] MEDS: DIPHENHYDRAMINE 25 MG TAB/CAP PO SCH (20:22)
[2018-05-01] MEDS: TRAZODONE 50 MG TABLET PO SCH (20:22)
[2018-05-01] MEDS: SIMETHICONE 125 MG TAB PO SCH (20:23)
[2018-05-01] MEDS: FLUOCINONIDE TP SCH (21:00)
[2018-05-01] MEDS: APPL TP SCH (21:00)
[2018-05-01] MEDS: EMOLLIENT BASE TP SCH (21:00)
[2018-05-02] MEDS: HYDROMORPHONE ORAL 4 MG TAB PO SCH ×4 (00:07→18:08)
[2018-05-02] MEDS: POLYETHYL GLY 3350 17 GM/DOSE PO ONE ×2 (03:19→08:17)
[2018-05-02] MEDS: METOPROLOL TAR 25 MG TAB PO SCH (06:33)
[2018-05-02] MEDS: MULTIVIT W/ MINERAL TAB PO SCH (08:16)
[2018-05-02] MEDS: GABAPENTIN 300 MG CAP PO SCH ×4 (08:17→21:30)
[2018-05-02] MEDS: SERTRALINE HCL 50 MG TAB PO SCH (08:17)
[2018-05-02] MEDS: FERROUS SULFATE 325 MG TAB PO SCH (08:17)
[2018-05-02] MEDS: PANTOPRAZOLE 40MG TABLET PO SCH (08:17)
[2018-05-02] MEDS: AMOXICILLIN TRIHYDR 250 MG CAP PO SCH ×3 (08:18→21:29)
[2018-05-02] MEDS: VITAMIN D 1000 UNIT TAB PO SCH (08:18)
[2018-05-02] MEDS: MICONAZOLE 2% TOPICAL 15 GM TOP SCH ×2 (08:18→21:00)
[2018-05-02] MEDS: TRIMETHOPRIM 100 MG TABLET PO SCH (08:18)
--- NOTE | 2018-05-02 08:39 | P.PN ---
Subjective Date of Service: 05/01/18 Subjective: No new changes, No C/O voiced, Improving Physical Examination - Vital Signs Temperature: 96.8 F Blood Pressure: 123/75 Pulse: 88 Respirations: 14 Pulse Ox (%): 98 - Physical Exam General: Alert, In no apparent distress, Oriented x3 Respiratory: Clear to auscultation bilaterally, Normal air movement Cardiovascular: Normal pulses, Regular rate/rhythm, Normal S1 S2, No murmurs Gastrointestinal: Normal bowel sounds, Soft and benign, Non-distended, No tenderness Musculoskeletal: No clubbing, No swelling Neurological: Normal strength at 5/5 x4 extr, Normal tone, Sensation intact, Cranial nerves 3-12 intact - Studies Microbiology Data (last 24 hrs): 04/28/18 09:34 Catheterized Urine [place] Count - Final >100,000 CFU/ML. 04/28/18 09:34 Catheterized Urine - Final Pseudomonas Aeruginosa Enterococcus Faecalis Medications List Reviewed: Yes Assessment & Plan - Problems (Diagnosis) (1) MDRO (multiple drug resistant organisms) resistance Onset Date: 04/29/18 Current Visit: Yes Status: Acute (2) UTI (urinary tract infection) Onset Date: 08/07/16 Current Visit: No Status: Acute (3) Urinary tract infection Current Visit: No Status: Acute (4) Back pain Onset Date: 04/29/18 Current Visit: Yes Status: Chronic Qualifiers: (5) CHF (congestive heart failure) Onset Date: 08/24/16 Current Visit: No Status: Chronic Qualifiers: (6) Chronic indwelling Hannah catheter Onset Date: 04/29/18 Current Visit: Yes Status: Chronic (7) Hypertension Onset Date: 04/29/18 Current Visit: Yes Status: Chronic Qualifiers: (8) Lymphedema Onset Date: 04/29/18 Current Visit: Yes Status: Chronic (9) Morbid obesity Onset Date: 08/24/16 Current Visit: No Status: Chronic (10) Pulmonary embolism Onset Date: 08/24/16 Current Visit: No Status: Chronic Qualifiers: - Plan Plan: Continue with current plan of care: 1. Continue with IV antibiotics; AWAITING FOR ARRANGEMENTS TO BE MADE 2. Pharmacy to dose antibiotics; arrange for IV antibiotics at discharge 3. PICC line placement completed 4. Arrange for home health-patient has had [facility] home health in the past 5. Anticipate discharge home in the morning 6. GI and DVT prophylaxis Discharge Plan: Home Plan to discharge in: 24 Hours - Advance Directives Does patient have a Living Will: Yes Does patient have a Durable POA for Healthcare: Yes - Code Status/Comfort Care Code Status: Full Code
[2018-05-02] MEDS: Meropenem 1,000 MG in NA CHLORIDE 0.9% 100 ML IV SCH ×2 (11:00→18:08)
[2018-05-02] MEDS: GLUCERNA SHAKE 237 ML CAN PO SCH (17:00)
[2018-05-02] MEDS: EMOLLIENT BASE TP SCH (21:00)
[2018-05-02] MEDS: APPL TP SCH (21:00)
[2018-05-02] MEDS: FLUOCINONIDE TP SCH (21:00)
[2018-05-02] MEDS: DIPHENHYDRAMINE 25 MG TAB/CAP PO SCH (21:29)
[2018-05-02] MEDS: TRAZODONE 50 MG TABLET PO SCH (21:30)
[2018-05-02] MEDS: SIMETHICONE 125 MG TAB PO SCH (21:36)
[2018-05-03] MEDS: Meropenem 1,000 MG in NA CHLORIDE 0.9% 100 ML IV SCH ×2 (00:35→09:41)
[2018-05-03] MEDS: HYDROMORPHONE ORAL 4 MG TAB PO SCH ×3 (00:36→13:23)
[2018-05-03] MEDS: METOPROLOL TAR 25 MG TAB PO SCH (06:09)
--- NOTE | 2018-05-03 07:23 | P.PN ---
Subjective Date of Service: 05/02/18 Arrangements for antibiotics are being completed. Review of Systems 10-point ROS is otherwise unremarkable Physical Examination - Vital Signs Temperature: 97 F Blood Pressure: 124/75 Pulse: 84 Respirations: 20 Pulse Ox (%): 97 - Physical Exam General: Alert, In no apparent distress, Oriented x3 Respiratory: Clear to auscultation bilaterally, Normal air movement Cardiovascular: Regular rate/rhythm, Normal S1 S2, No murmurs Gastrointestinal: Normal bowel sounds, Soft and benign, Non-distended, No tenderness Musculoskeletal: No clubbing, No swelling, No tenderness Neurological: Normal speech, Normal tone, Sensation intact, Cranial nerves 3-12 intact, Normal affect - Studies Medications List Reviewed: Yes Assessment & Plan - Problems (Diagnosis) (1) MDRO (multiple drug resistant organisms) resistance Onset Date: 04/29/18 Current Visit: Yes Status: Acute (2) Urinary tract infection Current Visit: No Status: Acute (3) Back pain Onset Date: 04/29/18 Current Visit: Yes Status: Chronic Qualifiers: (4) CHF (congestive heart failure) Onset Date: 08/24/16 Current Visit: No Status: Chronic Qualifiers: (5) Chronic indwelling Hannah catheter Onset Date: 04/29/18 Current Visit: Yes Status: Chronic (6) Hypertension Onset Date: 04/29/18 Current Visit: Yes Status: Chronic Qualifiers: (7) Lymphedema Onset Date: 04/29/18 Current Visit: Yes Status: Chronic (8) Morbid obesity Onset Date: 08/24/16 Current Visit: No Status: Chronic (9) Pulmonary embolism Onset Date: 08/24/16 Current Visit: No Status: Chronic Qualifiers: - Plan Plan: Continue with current plan of care: 1. Continue with IV antibiotics; Patient was advised to go to correction facility by care management. However, patient refused and wants to go home and do his antibiotics at home. Arrangements are still being completed. 2. Pharmacy to dose antibiotics; arrange for IV antibiotics at discharge 3. PICC line placement completed; Will need to be removed by home health once antibiotics were completed 4. Arrange for home health-patient has had [facility] home health in the past; he wants to continue with them 5. Anticipate discharge home in the morning 6. GI and DVT prophylaxis - Advance Directives Does patient have a Living Will: Yes Does patient have a Durable POA for Healthcare: Yes - Code Status/Comfort Care Code Status: Full Code Critical Care: No Time Spent Managing PTS Care (In Minutes): 50
[2018-05-03] MEDS: MICONAZOLE 2% TOPICAL 15 GM TOP SCH (09:00)
[2018-05-03] MEDS: AMOXICILLIN TRIHYDR 250 MG CAP PO SCH (09:41)
[2018-05-03] MEDS: GABAPENTIN 300 MG CAP PO SCH ×2 (09:41→13:22)
[2018-05-03] MEDS: PANTOPRAZOLE 40MG TABLET PO SCH (09:41)
[2018-05-03] MEDS: MULTIVIT W/ MINERAL TAB PO SCH (09:41)
[2018-05-03] MEDS: FERROUS SULFATE 325 MG TAB PO SCH (09:41)
[2018-05-03] MEDS: SERTRALINE HCL 50 MG TAB PO SCH (09:41)
[2018-05-03] MEDS: VITAMIN D 1000 UNIT TAB PO SCH (09:41)
[2018-05-03 10:33] LABS: Protime INR 1.5
[2018-05-03] MEDS: TRIMETHOPRIM 100 MG TABLET PO SCH (10:39)
[2018-05-03 11:27] VITALS: BP 115/68; TEMP 97.3
[2018-05-03] MEDS: WARFARIN SODIUM 5 MG TAB PO SCH (13:27)
--- NOTE | 2018-05-03 16:11 | PN ---
Subjective: The patient lying in bed. Denies any headache, nausea, vomiting, chest pain, abdominal pain, constipation, or diarrhea. Complains of backache because of his spinal stenosis. Objective: Vital Signs: Temperature 97.3, pulse 89, respiration 18, blood pressure 115/68. Lungs: Clear to auscultation. Heart: S1, S2. Regular. Abdomen: Soft, nontender. Bowel sounds positive. Extremities: 3+ nonpitting edema. Hannah catheter in place. Laboratory Data: No new labs available at this time. Assessment And Plan: Urinary tract infection secondary to Pseudomonas and Enterococcus. We will rec ommend to continue meropenem and Amoxil. Consider continue current medication. We will follow the p atient as needed. NF/MODL Voice ID: [id number] Report ID: [id number]
--- NOTE | 2018-05-04 13:57 | DS ---
Date of Discharge: 05/03/2018 Consultants: Darwin Estrada MD with Infectious Disease. Admitting Diagnoses: 1.Multidrug-resistant organism. 2.Urinary tract infection, acute cystitis with hematuria. 3.Back pain. 4.Chronic indwelling Hannah catheter. 5.Essential hypertension. 6.Congestive heart failure, chronic. 7.Lymphedema, chronic. 8.Morbid obesity. BMI 53.4. 9.History of pulmonary embolism, on Coumadin. Discharge Diagnoses: 1.Urinary tract infection, acute cystitis with hematuria, secondary to Pseudomonas and Enterococcus. 2.Multidrug-resistant organisms. 3.Chronic back pain, on chronic narcotics. Sees Dr. Melchor. 4.Congestive heart failure, chronic. 5.Chronic indwelling Hannah catheter. 6.Essential hypertension. 7.Lymphedema, chronic. 8.Morbid obesity. BMI 53.4. 9.History of pulmonary embolism, on Coumadin. Hospital Course: The patient is a 77-year-old male who comes in with UTI. The patient was found to have Enterococcus faecalis and Pseudomonas aeruginosa, which were found to be multidrug resistant. T he patient was started on IV antibiotics. Culture showed organisms as mentioned above. The patient otherwise did well. He is nonambulatory for the most part. States that he can use his walker to get from the bed to the bathroom and for short distances. The patient was then seen by Dr. Estrada with Infectious Disease, who recommended IV antibiotics for multidrug-resistant organisms. The patient wi ll need meropenem and was also put on oral penicillin for the Enterococcus. The patient otherwise di d well. He declined [facility] facility placement for long-term IV antibiotics. PICC line was placed and home health was arranged. Antibiotics were approved and the patient is willing to persona lly pay caregiver to infuse IV antibiotics. The patient understands that outcome will be better in a [facility] facility where he will be under supervision of a physician and will have nursing sta ff; however, he declined and wishes to stay at home with infusion at home. The patient understands t he risks. All questions were answered. Once arrangements were made for antibiotics and home health, the patient was discharged in a stable condition. Activity: Fall precautions. Medications: As per medication reconciliation list. Followup: Follow up with primary care physician in 1 week. Follow up with Pain Management physician for chronic narcotics. Follow up with ENT for tinnitus. Return to ER for worsening condition. Diet: Heart healthy. Total time spent discharging the patient was 37 minutes. Physical Examination: General: Awake, alert, and oriented. No acute distress. Morbidly obese elderly male. Vital Signs: BMI 53. CV: S1, S2. Pulses are present. Respiratory: Moving air well bilaterally. Abdomen: Soft, nontender, and nondistended. Positive bowel sounds. Extremities: No clubbing or cyanosis. Edema is present. Neurologic: Nonfocal. SA/MODL Voice ID: [id number] Report ID: [id number]
== END 2018-05-03 16:47 | disposition home health service (06) | DRG 690 ==
LOC: ER 19:49 → ERHOLD 21:04 → 4TH 21:43
PROVIDERS: ADMIT Hospitalist; ATTEND Hospitalist
DX: N30.01 Acute cystitis with hematuria (principal); Z68.43 Body mass index [BMI] 50.0-59.9, adult; B96.5 Pseudomonas (aeruginosa) (mallei) (pseudomallei) as the cause of diseases classified elsewhere; B95.2 Enterococcus as the cause of diseases classified elsewhere; M54.9 Dorsalgia, unspecified; I11.0 Hypertensive heart disease with heart failure; I50.9 Heart failure, unspecified; E66.01 Morbid (severe) obesity due to excess calories; Z88.2 Allergy status to sulfonamides; Z86.711 Personal history of pulmonary embolism; I89.0 Lymphedema, not elsewhere classified; Z79.01 Long term (current) use of anticoagulants
CPT/HCPCS: 36415; 71045; 80048; 80053; 80076; 81003; 82550; 82553; 83690; 83735; 83880; 84484; 85025; 85610; 85730; 87077; 87086; 87088; 87186; 93005; 96365; 96375; 99285; J0692; J0696; J1335; J2405; J3010; J7030

== ENCOUNTER 2019-01-09 17:20 | Inpatient (IN) | payer OTHER ==
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
[2019-01-09] MEDS ORDERED: NA CHLORIDE 0.9% 1,000 ML ONE (18:02)
[2019-01-09 18:15] LABS: Arterial Blood Carboxyhemoglob 0.6 % (0-1.5); Blood Gas Oxyhemoglobin 93.2 % (94-97); Blood O2 Saturation 94.5 % (92-98.5)
[2019-01-09 18:27] LABS: Protime INR 2.79
[2019-01-09 18:31] LABS: Absolute Monocytes 1.7 K/uL (0.1-1.3); Absolute Neutrophil 30.1 K/uL (1.8-8.0); Basophils % 0.1 % (0-1.3); Eosinophils % 0.1 % (0-4.4); Hematocrit 40.7 % (39.6-49.0); MPV 8.2 fL (7.6-11.3); Monocytes % 5.3 % (3.3-12.3); RBC Red Blood Cell Count 4.15 M/uL (4.33-5.43)
--- NOTE | 2019-01-09 18:36 | RAD REPORT ---
EXAM DESCRIPTION: RAD - Chest Single View - 01/09/2019 6:28 pm CLINICAL HISTORY: MALAISE Chest pain. COMPARISON: Chest Single View dated 04/30/2018; Chest Single View dated 04/28/2018; Chest Single View da selvin 08/22/2016; Chest Single View dated 08/21/2016 FINDINGS: Portable technique limits examination quality. The lungs are grossly clear. The heart is mildly enlarged in size. No displaced fractures. IMPRESSION: Mild cardiomegaly.
[2019-01-09 18:39] LABS: Albumin 2.4 g/dL (3.4-5.0); Bilirubin Direct 0.3 mg/dL (0-0.2); Bilirubin Total 0.6 mg/dL (0.2-1.0); CKMB Creatine Kinase MB 2.7 ng/mL (0.3-3.6); Potassium 5.4 mmol/L (3.5-5.1); Protein, Total 6.6 g/dL (6.4-8.2); Troponin (Emerg Dept Use Only) 0.05 ng/mL (0.0-0.045)
[2019-01-09 18:58] LABS: Urine Bacteria >50 /HPF (NONE SEEN); Urine Culture Reflex Order REFLEXED; Urine RBC >50 /HPF (NONE SEEN)
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
--- NOTE | 2019-01-09 19:18 | RAD REPORT ---
EXAM DESCRIPTION: CT - Chest Abd Pelvis Wo Con - 01/09/2019 6:57 pm CLINICAL HISTORY: Chest and abdomen pain. ABDOMINAL DISTENTION COMPARISON: CTANGIO CHEST FOR PE dated 06/25/2014 TECHNIQUE: A limited noncontrast study was performed. All CT scans are performed using dose optimization technique as appropriate and may include automated exposure control or mA/KV adjustment according to patient size. FINDINGS: Mild linear subsegmental atelectasis is present in both lung bases.No pleural or pericardi al effusion.No intrathoracic adenopathy.Postsurgical changes are seen about the stomach with distenti on of the esophagus. Limited noncontrast assessment of the liver, spleen, adrenal glands and kidneys show no acute abnorma lity. Pancreatic atrophy is seen. Due to patient's large pannus, significant amount of the bowel is not included on this study. Within the limitations of this, no acute bowel finding. No free air or bowel obstruction. Urinary bladder is decompressed by means of Hannah catheter. Moderate fat containing right inguinal hernia. No pathologi c lymphadenopathy in the abdomen or pelvis. No free fluid or hematoma. Moderate lumbar degenerative changes. IMPRESSION: No acute finding is demonstrated within the above detailed limitations.
[2019-01-09 19:37] LABS: Blood Morphology Comment NOT SEEN (NOT SEEN); Platelet Estimate ADEQ
[2019-01-09] MEDS ORDERED: CEFEPIME 2 GM VIAL ONE (20:08)
[2019-01-09] MEDS ORDERED: NA CHLORIDE 0.9% 100 ML IV ONE (20:08)
--- NOTE | 2019-01-09 20:28 | ER ---
Nurse's Notes [facility] Name: Elbert Miller Age: 78 yrs Sex: Male : 1940 Arrival Date: 01/09/2019 Time: 17:25 Bed 14 Private MD: Diagnosis: Diarrhea, unspecified;Cystitis, unspecified with hematuria;Severe sepsis without septic shock Presentation: 01/09 17:28 Presenting complaint: EMS states: EMS, PT FELL THIS MORNING AND CALLED FOR [facility] UP. WE WERE CALLED AGAIN BECAUSE PT WAS USING HIS CELL PHONE TO CHANGE TV CHANNEL. PT ALSO HAD RECENT SANTOS CHANGE AND IT HAS BEEN BLOODY SINCE. Transition of care: patient was not received from another setting of care. Onset of symptoms was January 09, 2019. Risk Assessment: Do you want to hurt yourself or someone else? Patient reports no desire to harm self or others. Initial Sepsis Screen: Does the patient meet any 2 criteria? No. Patient's initial sepsis screen is negative. Does the patient have a suspected source of infection? No. Patient's initial sepsis screen is negative. Care prior to arrival: None. 17:28 Method Of Arrival: EMS: [facility] ls4 17:28 Acuity: [place] 3 ls4 Triage Assessment: 17:32 General: Appears obese, unkempt, Behavior is cooperative. Pain: Denies pain. Neuro: ls4 Level of Consciousness is awake, alert, obeys commands, Oriented to person, place, time, situation, Marshmallow Machine Operator are equal bilaterally Moves all extremities. Gait is Speech is normal, Facial symmetry appears normal, Pupils are PERRLA. Cardiovascular: Denies chest pain, diaphoresis, fatigue, lightheadedness, nausea, Capillary refill < 3 seconds Patient's skin is warm and dry. BILATERAL EDEMA TO LOWER EXTREMITIES WITH REDNESS, DRY AND ASHY APPEARANCE . Respiratory: Denies. : Santos in place to gravity drainage Urine is blood tinged. Historical: - Allergies: 17:45 chlorpromazine HCl; ls4 17:45 fluoxetine HCl; ls4 17:45 paroxetine HCl; ls4 17:45 Sulfa (Sulfonamide Antibiotics); ls4 - Home Meds: 20:09 Ambien 10 mg Oral tab 1 tab once daily [Active]; Cipro 500 mg Oral tab 1 tab every 12 ak1 hours [Active]; Claritin-D 24 Hour 10-240 mg Oral Tb24 1 tab once daily [Active]; Coumadin 2 mg Oral tab 1 tab 6 days a week Wed-Wed, 1/2 tab on Wednesday [Active]; gabapentin 600 mg Oral tab 1 tab four times a day [Active]; hydromorphone 4 mg Oral tab 1 tab every 6 hours [Active]; hydromorphone 8 mg Oral tab 1 tab every 6 hours [Active]; Iron CR Oral [Active]; lorazepam 0.5 mg Oral tab 1 tab 3 times per day [Active]; metoprolol tartrate 25 mg Oral tab 1 tab 2 times per day [Active]; Multiple Vitamins Oral tab [Active]; nitrofurantoin macrocrystal 100 mg Oral cap 1 cap q 12 hours [Active]; [place] 10-325 mg Oral tab 1 tab every 6 hours [Active]; pantoprazole 40 mg Oral TbEC 1 tab once daily [Active]; phenazopyridine 200 mg Oral tab 1 tab 3 times per day [Active]; sertraline 50 mg Oral tab 1 tab once daily [Active]; tramadol 50 mg Oral tab 1 tab every 6 hours [Active]; trazodone 100 mg Oral tab 1 tab nightly [Active]; trimethoprim 100 mg Oral tab 1 tab daily [Active]; Vitamin D Oral [Active]; warfarin 5 mg Oral tab 1 tab once daily [Active]; Zantac 150 mg Oral tab 1 tab 2 times per day [Active]; - PMHx: 17:32 Arthritis; Atrial Fib; blood clot in lungs; CHF; Hernia; Herniated disc; Hypertension; ls4 lymphadema bilateral legs; neuropathy of right leg; PE; restless leg syndrome; spinal stenosis; - PSHx: 20:09 shoulder sx; Cholecystectomy; ak1 - Immunization history:: Adult Immunizations unknown. - Social history:: Smoking status: Patient/guardian denies using tobacco. - Ebola Screening: : No symptoms or risks identified at this time. Screenin:41 Abuse screen: Denies threats or abuse. Denies injuries from another. Nutritional ls4 screening: No deficits noted. Tuberculosis screening: No symptoms or risk factors identified. Fall Risk Fall in past 12 months (25 points). Secondary diagnosis (15 points) IV access (20 points). Ambulatory Aid- None/Bed Rest/Nurse Assist (0 pts). Gait- Normal/Bed Rest/Wheelchair (0 pts). Assessment: 17:52 General: Appears obese, unkempt, Behavior is cooperative. Neuro: No deficits noted. ls4 Respiratory: Airway is patent Respiratory effort is even, unlabored. Derm: LOWER EXTREMITY EDEMA, REDNESS, ASHY DRY. Injury Description: SKIN TEAR LEFT ARM AND UPPER ARM. 20:06 Reassessment: Patient appears in no apparent distress at this time. No changes from ak1 previously documented assessment. Patient and/or family updated on plan of care and expected duration. Pain level reassessed. Patient is alert, oriented x 3, equal unlabored respirations, skin warm/dry/pink. Patient states symptoms have improved. Vital Signs: 17:32 BP 91 / 71; Pulse 120; Resp 16; Temp 98.6(TE); Pulse Ox 98% on R/A; Weight 170.1 kg ls4 (R); Pain 0/10; 20:04 BP 112 / 88; Pulse 108; Resp 24; Temp 98.1; Pulse Ox 98% on 4 lpm NC; ak1 ED Course: 17:25 Patient arrived in ED. ls4 17:27 Sharmaine Hightower, RN is Primary Nurse. ls4 17:27 Todd Longo MD is Attending Physician. gs 17:30 Triage completed. ls4 17:41 Patient has correct armband on for positive identification. Fall risk band placed. ls4 Placed in gown. Bed in low position. Call light in reach. Side rails up X 1. monitoring tech on. Pulse ox on. NIBP on. 17:41 No provider procedures requiring assistance completed. Maintain EMS IV. Dressing ls4 intact. Good blood return noted. Site clean \T\ dry. Gauge \T\ site: 22 RIGHT FOREARM . 18:12 Arm band placed on left wrist. ls4 18:29 Chest Single View XRAY In Process Unspecified. EDMS 18:57 CT Head Brain wo Cont In Process Unspecified. EDMS 18:57 CT Chest Abdomen Pelvis W/O Contrast In Process Unspecified. EDMS 19:42 Notified ED physician of a critical lab result(s). 19% bands and lactate 5.1, Dr. Longo ak1 notified. 20:06 Primary Nurse role handed off by Sharmaine Hightower, PAU ak1 20:06 Carole Boothe, RN is Primary Nurse. ak1 20:10 Patient admitted, IV remains in place. ak1 20:27 Shelby Guillen MD is Hospitalizing Provider. gs 22:05 Foot Left 3 View In Process Unspecified. EDMS 22:05 Ankle Left 3 View XRAY In Process Unspecified. EDMS 22:05 Knee Left 2 View In Process Unspecified. EDMS Administered Medications: 18:16 Drug: NS 0.9% 1000 ml Route: IV; Rate: 1 bolus; Site: right antecubital; ls4 21:48 Follow up: IV Status: Completed infusion; IV Intake: 1000ml ak1 20:04 Drug: Cefepime 2 grams Route: IVPB; Rate: 200 ml/hr; Infused Over: 30 mins; Site: right ak1 antecubital; 21:47 Follow up: IV Status: Completed infusion; IV Intake: 100ml ak1 22:15 Drug: NS 0.9% (20 ml/kg) 20 ml/kg Route: IV; Rate: 1 bolus; Site: right antecubital; ak1 22:16 Follow up: IV Status: Infusion continued upon admission ak1 22:15 Drug: NS 0.9% 700 ml Route: IV; Rate: 1 bolus; Site: right antecubital; ak1 22:16 Follow up: IV Status: Infusion continued upon admission ak1 Intake: 21:47 IV: 100ml; Total: 100ml. ak1 21:48 IV: 1000ml; Total: 1100ml. ak1 Outcome: 20:10 Condition: good ak1 20:28 Decision to Hospitalize by Provider. gs 23:01 Patient left the ED. bb Signatures: Dispatcher [employer] EDMS Sara Vargas RN RN bb Carole Boothe, RN RN ak1 Todd Longo MD MD gs Stewart, Lisa, RN RN ls4 Corrections: (The following items were deleted from the chart) 17:51 17:32 BP 156 / 67; Pulse 78bpm; Resp 16bpm; Pulse Ox 98% RA; Temp 98.6F Temporal; 170.1 ls4 kg Reported; Pain 0/10; ls4
--- NOTE | 2019-01-09 20:29 | EDPHYS ---
Physician Documentation [facility] Name: Elbert Miller Age: 78 yrs Sex: Male : 1940 Arrival Date: 01/09/2019 Time: 17:25 Bed 14 Private MD: ED Physician Todd Longo HPI: 01/09 21:32 This 78 yrs old Male presents to ER via EMS with complaints of Altered Mental gs Status, Fall Injury. 21:32 The patient presents with confusion. Onset: The symptoms/episode began/occurred today. gs Possible causes: unknown. Associated signs and symptoms: Pertinent positives: shortness of breath. Associated signs and symptoms: Pertinent positives: diarrhea. Current symptoms: In the emergency department the patient's symptoms are unchanged from the initial presentation. The patient has experienced similar episodes in the past, a few times. Historical: - Allergies: 17:45 chlorpromazine HCl; ls4 17:45 fluoxetine HCl; ls4 17:45 paroxetine HCl; ls4 17:45 Sulfa (Sulfonamide Antibiotics); ls4 - Home Meds: 20:09 Ambien 10 mg Oral tab 1 tab once daily [Active]; Cipro 500 mg Oral tab 1 tab every 12 ak1 hours [Active]; Claritin-D 24 Hour 10-240 mg Oral Tb24 1 tab once daily [Active]; Coumadin 2 mg Oral tab 1 tab 6 days a week Wed-Wed, 1/2 tab on Wednesday [Active]; gabapentin 600 mg Oral tab 1 tab four times a day [Active]; hydromorphone 4 mg Oral tab 1 tab every 6 hours [Active]; hydromorphone 8 mg Oral tab 1 tab every 6 hours [Active]; Iron CR Oral [Active]; lorazepam 0.5 mg Oral tab 1 tab 3 times per day [Active]; metoprolol tartrate 25 mg Oral tab 1 tab 2 times per day [Active]; Multiple Vitamins Oral tab [Active]; nitrofurantoin macrocrystal 100 mg Oral cap 1 cap q 12 hours [Active]; [place] 10-325 mg Oral tab 1 tab every 6 hours [Active]; pantoprazole 40 mg Oral TbEC 1 tab once daily [Active]; phenazopyridine 200 mg Oral tab 1 tab 3 times per day [Active]; sertraline 50 mg Oral tab 1 tab once daily [Active]; tramadol 50 mg Oral tab 1 tab every 6 hours [Active]; trazodone 100 mg Oral tab 1 tab nightly [Active]; trimethoprim 100 mg Oral tab 1 tab daily [Active]; Vitamin D Oral [Active]; warfarin 5 mg Oral tab 1 tab once daily [Active]; Zantac 150 mg Oral tab 1 tab 2 times per day [Active]; - PMHx: 17:32 Arthritis; Atrial Fib; blood clot in lungs; CHF; Hernia; Herniated disc; Hypertension; ls4 lymphadema bilateral legs; neuropathy of right leg; PE; restless leg syndrome; spinal stenosis; - PSHx: 20:09 shoulder sx; Cholecystectomy; ak1 - Immunization history:: Adult Immunizations unknown. - Social history:: Smoking status: Patient/guardian denies using tobacco. - Ebola Screening: : No symptoms or risks identified at this time. ROS: 21:32 All other systems are negative. gs Exam: 21:32 Head/Face: Normocephalic, atraumatic. Eyes: Pupils equal round and reactive to light, gs extra-ocular motions intact. Lids and lashes normal. Conjunctiva and sclera are non-icteric and not injected. Cornea within normal limits. Periorbital areas with no swelling, redness, or edema. ENT: Nares patent. No nasal discharge, no septal abnormalities noted. Tympanic membranes are normal and external auditory canals are clear. Oropharynx with no redness, swelling, or masses, exudates, or evidence of obstruction, uvula midline. Mucous membranes moist. Neck: Trachea midline, no thyromegaly or masses palpated, and no cervical lymphadenopathy. Supple, full range of motion without nuchal rigidity, or vertebral point tenderness. No Meningismus. Chest/axilla: Normal chest wall appearance and motion. Nontender with no deformity. No lesions are appreciated. 21:32 Back: No spinal tenderness. No costovertebral tenderness. Full range of motion. Skin: Warm, dry with normal turgor. Normal color with no rashes, no lesions, and no evidence of cellulitis. Neuro: Awake and alert, GCS 15, oriented to person, place, time, and situation. Cranial nerves II-XII grossly intact. Motor strength 5/5 in all extremities. Sensory grossly intact. Cerebellar exam normal. Normal gait. 21:32 Constitutional: The patient appears alert, awake, obese. 21:32 Cardiovascular: Rate: tachycardic, Rhythm: regular, Pulses: no pulse deficits are appreciated, Heart sounds: normal, Edema: 3+ edema to level of left midcalf and right midcalf. 21:32 ECG was reviewed by the Attending Physician. 21:32 Respiratory: mild respiratory distress is noted, Respirations: tachypnea, Breath sounds: decreased breath sounds. 21:32 Abdomen/GI: Inspection: distension, that is mild, Hernia: noted in the epigastric area and paraumbilical area. 21:32 Musculoskeletal/extremity: Extremities: noted in the left knee, anterior aspect of left ankle and dorsum of left foot: pain, tenderness, Perfusion: the patient is normally perfused throughout. Vital Signs: 17:32 BP 91 / 71; Pulse 120; Resp 16; Temp 98.6(TE); Pulse Ox 98% on R/A; Weight 170.1 kg ls4 (R); Pain 0/10; 20:04 BP 112 / 88; Pulse 108; Resp 24; Temp 98.1; Pulse Ox 98% on 4 lpm NC; ak1 MDM: 17:55 Patient medically screened. gs 21:32 Differential Diagnosis: CVA, electrolyte abnormality, pneumonia, sepsis, UTI. Data gs reviewed: vital signs, nurses notes. Data reviewed: lab test result(s), EKG, radiologic studies. Counseling: I had a detailed discussion with the patient and/or guardian regarding: the historical points, exam findings, and any diagnostic results supporting the discharge/admit diagnosis, the need for further work-up and treatment in the hospital. Response to treatment: the patient's symptoms have mildly improved after treatment, and as a result, I will admit patient. 01/09 17:59 Order name: Basic Metabolic Panel; Complete Time: 19:29 01/09 17:59 Order name: Blood Culture Adult (2) 01/09 17:59 Order name: CBC with Diff; Complete Time: 21:42 18 17:59 Order name: Ckmb; Complete Time: 19:29 18 17:59 Order name: CPK; Complete Time: 19:29 18 17:59 Order name: Lactate; Complete Time: 21:42 01/09 17:59 Order name: LFT's; Complete Time: 19:29 gs 01/09 17:59 Order name: Lipase; Complete Time: 19:29 01/09 17:59 Order name: Procalcitonin; Complete Time: 19:29 01/09 17:59 Order name: Protime (+inr); Complete Time: 19:29 01/09 17:59 Order name: Troponin (emerg Dept Use Only); Complete Time: 19:29 01/09 17:59 Order name: Urine Microscopic Only; Complete Time: 19:29 01/09 17:59 Order name: AMMONIA; Complete Time: 21:42 01/09 17:59 Order name: ABG; Complete Time: 19:29 01/09 17:59 Order name: Chest Single View XRAY; Complete Time: 19:29 01/09 18:00 Order name: CT Head Brain wo Cont; Complete Time: 19:29 01/09 18:00 Order name: CT Chest Abdomen Pelvis W/O Contrast; Complete Time: 19:29 01/09 18:34 Order name: Urine Dipstick--Ancillary (enter results); Complete Time: 21:42 01/09 18:41 Order name: Manual Differential; Complete Time: 21:42 [facility] 01/09 19:00 Order name: Urine Culture [facility] 01/09 19:38 Order name: Ova And Parasites 01/09 19:38 Order name: Stool Culture 01/09 19:38 Order name: Occult Blood 01/09 19:38 Order name: CDIFF 01/09 20:30 Order name: Foot Left 3 View; Complete Time: 11:31 [facility] 01/09 20:31 Order name: Ankle Left 3 View XRAY; Complete Time: 11:31 01/09 22:05 Order name: Knee Left 2 View; Complete Time: 11:31 [facility] 01/09 22:41 Order name: Lactate Sepsis 2 HR Follow-up; Complete Time: 11:31 [facility] 01/09 17:59 Order name: Cardiac monitoring; Complete Time: 19:37 01/09 17:59 Order name: EKG - Nurse/Tech; Complete Time: 19:40 01/09 17:59 Order name: IV Saline Lock - Large Bore; Complete Time: 19:36 01/09 17:59 Order name: Labs collected and sent; Complete Time: 19:36 gs 01/09 17:59 Order name: O2 Per Protocol; Complete Time: 19:36 gs 01/09 17:59 Order name: O2 Sat Monitoring; Complete Time: 19:36 gs 01/09 17:59 Order name: Urine Dipstick-Ancillary (obtain specimen); Complete Time: 19:36 gs 18 18:06 Order name: EKG Electrocardiogram; Complete Time: 19:50 EDMS 01/09 18:22 Order name: Labs - recollect needed; Complete Time: 19:13 bd 01/09 18:30 Order name: Labs - recollect needed; Complete Time: 19:13 bd EC:32 Rate is 111 beats/min. Rhythm is irregularly irregular. QRS interval is prolonged. T gs waves are Normal. No ST changes noted. Clinical impression: Abnormal EKG without significant change and Atrial Flutter. Interpreted by me. Administered Medications: 18:16 Drug: NS 0.9% 1000 ml Route: IV; Rate: 1 bolus; Site: right antecubital; ls4 21:48 Follow up: IV Status: Completed infusion; IV Intake: 1000ml ak1 20:04 Drug: Cefepime 2 grams Route: IVPB; Rate: 200 ml/hr; Infused Over: 30 mins; Site: right ak1 antecubital; 21:47 Follow up: IV Status: Completed infusion; IV Intake: 100ml ak1 22:15 Drug: NS 0.9% (20 ml/kg) 20 ml/kg Route: IV; Rate: 1 bolus; Site: right antecubital; ak1 22:16 Follow up: IV Status: Infusion continued upon admission ak1 22:15 Drug: NS 0.9% 700 ml Route: IV; Rate: 1 bolus; Site: right antecubital; ak1 22:16 Follow up: IV Status: Infusion continued upon admission ak1 Disposition: 21:32 Critical Care:. Disposition: 01/09/19 20:28 Hospitalization ordered by Shelby Guillen for Inpatient Admission. Preliminary diagnosis are Diarrhea, unspecified, Cystitis, unspecified with hematuria, Severe sepsis without septic shock. - Bed requested for Intensive Care Unit. - Status is Inpatient Admission. bb - Condition is Stable. - Problem is new. - Symptoms have improved. UTI on Admission? Yes Critical care time excluding procedures: 21:32 Critical care time: Bedside Care: 10 minutes, Consultation: 10 minutes, Family gs Intervention: 10 minutes. Total time: 30 minutes Signatures: Dispatcher [employer] EDDC ShylaMay junior Livia Handy RN PAU Sara Vargas, RN RN bb Carole Boothe RN RN ak1 Todd Longo MD MD Sharmaine Hightower RN RN ls4 Corrections: (The following items were deleted from the chart) 19:14 17:59 Accucheck Blood Glucose ordered. ak1 20:36 20:30 Ankle Left 3 View ordered. EDDC EDMS 20:37 20:28 Hospitalization Ordered by Shelby Guillen MD for Inpatient Admission. Preliminary fc diagnosis is Sepsis, unspecified organism; Diarrhea, unspecified; Cystitis, unspecified with hematuria. Bed requested for Telemetry/MedSurg (Inpatient). Status is Inpatient Admission. Condition is Stable. Problem is new. Symptoms have improved. UTI on Admission? Yes. 20:40 20:37 01/09/2019 20:28 Hospitalization Ordered by Shelby Guillen MD for Inpatient fc Admission. Preliminary diagnosis is Sepsis, unspecified organism; Diarrhea, unspecified; Cystitis, unspecified with hematuria. Bed requested for Telemetry/MedSurg (Inpatient). Status is Inpatient Admission. Condition is Stable. Problem is new. Symptoms have improved. UTI on Admission? Yes. 20:42 20:40 01/09/2019 20:28 Hospitalization Ordered by Shelby Guillen MD for Inpatient fc Admission. Preliminary diagnosis is Sepsis, unspecified organism; Diarrhea, unspecified; Cystitis, unspecified with hematuria. Bed requested for Intensive Care Unit. Status is Inpatient Admission. Condition is Stable. Problem is new. Symptoms have improved. UTI on Admission? Yes. 21:42 20:42 01/09/2019 20:28 Hospitalization Ordered by Shelby Guillen MD for Inpatient gs Admission. Preliminary diagnosis is Sepsis, unspecified organism; Diarrhea, unspecified; Cystitis, unspecified with hematuria. Bed requested for Intensive Care Unit. Status is Inpatient Admission. Condition is Stable. Problem is new. Symptoms have improved. UTI on Admission? Yes. 22:05 20:31 Knee Left 3 View+RAD.RAD.BRZ ordered. EDDC EDMS 23:01 21:42 01/09/2019 20:28 Hospitalization Ordered by Shelby Guillen MD for Inpatient bb Admission. Preliminary diagnosis is Diarrhea, unspecified; Cystitis, unspecified with hematuria; Severe sepsis without septic shock. Bed requested for Intensive Care Unit. Status is Inpatient Admission. Condition is Stable. Problem is new. Symptoms have improved. UTI on Admission? Yes. gs
--- NOTE | 2019-01-09 20:33 | P.HP ---
Certification for Inpatient Patient admitted to: Inpatient With expected LOS: >2 Midnights Practitioner: I am a practitioner with admitting privileges, knowledge of patient current condition, hospital course, and medical plan of care. Services: Services provided to patient in accordance with Admission requirements found in Title 42 Section 412.3 of the Code of Federal Regulations Patient History Date of Service: 01/09/19 Reason for admission: severe sepsis History of Present Illness: is a 78 years old male, morbidly obese, with history of HTN, CAD, HX of PE/DVT, chronic A.fib, anticoagulated with warfarin, chronic lypmhedema, who started last night with diarrhea. He denied fever, but has been cold with chills. This morning the patient was more lethargic, he actually fell when he walked to the bath room. EMS was called, and he was helped to return to his bed , de refused transfer to the hospital. However, this afternoon, the patient become confused, then his daughter called EMS again and was transferred to ED. Lab work shows leukocytosis with bandemia, increased lactate and procalcitonin. Creatinine is elevated as well. His initial blood pressure was on the lower side, it improved after fluid resuscitation. UA abnormal consitent with UTI. He has chronic sims catheter, last exchange was this morning, and previously 2 weeks ago. Allergies paroxetine HCl [From Paxil] Allergy (Intermediate, Verified 11/24/15 09:31) HALLUCINATIONS clopidogrel bisulfate [From Plavix] Allergy (Verified 11/24/15 09:31) Unknown Sulfa (Sulfonamide Antibiotics) Allergy (Verified 07/16/17 03:10) Hives chlorpromazine HCl [From Thorazine] Adverse Reaction (Intermediate, Verified 03:10) HALLUCINATIONS fluoxetine HCl [From Prozac] Adverse Reaction (Intermediate, Verified 07/16/17 03:10) HALLUCINATIONS thorazine Allergy (Uncoded 07/16/17 03:10) Unknown Home Medications: Gabapentin [Neurontin] 600 mg PO QID 07/16/17 Hydromorphone [Dilaudid*] 4 mg PO Q6H 07/16/17 Loratadine [Claritin*] 10 mg PO DAILYPRN PRN 07/16/17 Metoprolol Tartrate [Lopressor*] 12.5 mg PO DAILY 07/16/17 Pantoprazole [Protonix Tab*] 40 mg PO DAILY 07/16/17 Phenazopyrididine [Pyridium*] 200 mg PO TIDP PRN 07/16/17 Sertraline HCl 50 mg PO DAILY 07/16/17 Trazodone [Desyrel*] 100 mg PO BEDTIME 07/16/17 Trimethoprim 100 mg PO DAILY 07/16/17 diphenhydrAMINE HCl [Diphenhydramine HCl] 25 mg PO BEDTIME 07/16/17 Cholecalciferol (Vitamin D3) [Vitamin D3] 1,000 unit PO DAILY 04/29/18 Ferrous Sulfate [Ferrous Sulfate*] 325 mg PO DAILY 04/29/18 Fluocinonide/Emollient Base [Fluocinonide-E 0.05% Cream] 1 appl TP BEDTIME 04/29 Mv,Minerals/FA/Lycopene/Ginkgo [One Daily Men's 50+ Tablet] 1 tab PO DAILY 04/29 Nitrofurantoin Macrocrystal [Macrodantin] 100 mg PO Q12H 04/29/18 Ranitidine [Zantac*] 150 mg PO DAILYPRN PRN 04/29/18 Simethicone [Gas Relief] 250 mg PO BEDTIME 04/29/18 Warfarin Sodium [Coumadin*] 2.5 mg PO SEECOM 04/29/18 Warfarin Sodium [Coumadin*] 5 mg PO SEECOM 04/29/18 Amoxicillin/Potassium Clav [Augmentin 500-125 Tablet] 1 each PO BID #20 tablet 05/02/18 Metoprolol Tartrate [Lopressor*] 12.5 mg PO [id number] tab 05/02/18 Miconazole Cream [Monistat-Derm*] 1 appl TOP BID tube 05/02/18 Docusate [Colace Cap*] 100 mg PO DAILY PRN #30 cap 05/03/18 Gabapentin [Neurontin] 600 mg PO QID #120 tablet 05/03/18 Glucerna Shake [Glucerna*] 237 ml PO DAILY AT SUPPER can 05/03/18 Meropenem [Merrem 500 MG/100 ML NS IVPB] 500 mg IV Q8HR #1 bag 05/03/18 Ondansetron [Zofran*] 4 mg IV Q8H PRN vial 05/03/18 - Past Medical/Surgical History Diabetic: No -: CHF -: HTN -: Lymphedema to the lower extremities -: Chronic indwelling urinary catheter -: Spinal stenosis of the back, chronic back pain -: History of DVT/PE, 1984, 1994 -: 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 -: GERD -: Iron deficiency anemia -: Large left-sided abdominal wall hernia -: Moderate-sized right sided abdominal wall hernia below the pannus. 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 He has no children. 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 - Family History Father -: Heart disease, Hypertension, GI disease - Social History Smoking Status: Never smoker Alcohol use: No CD- Drugs: No Caffeine use: Yes Place of Residence: Home Review of Systems 10-point ROS is otherwise unremarkable Physical Examination - Physical Exam General: Alert, In no apparent distress HEENT: Atraumatic, PERRLA, Mucous membr. moist/pink, EOMI, Sclerae nonicteric Neck: Supple, 2+ carotid pulse no bruit, No LAD, Without JVD or thyroid abnormality Respiratory: Diminished, Expiratory wheezes (scattered wheezing bilateral) Cardiovascular: Normal S1 S2, Irregular heart rate/rhythm Gastrointestinal: Normal bowel sounds, No tenderness Musculoskeletal: No tenderness, Swelling, Erythema, Other (bilateral chronic lymphedema. Left ankle and foot more swollen than right.) Integumentary: No rashes Neurological: Normal speech, Normal strength at 5/5 x4 extr, Normal tone, Normal affect Lymphatics: No axilla or inguinal lymphadenopathy - Studies Laboratory Data (last 24 hrs) 01/09/19 18:07: PT 31.6 H, INR 2.79 01/09/19 18:07: WBC 32.9 H*, Hgb 13.2 L, Hct 40.7, Plt Count 164 01/09/19 18:07: Sodium 131 L, Potassium 5.4 H, BUN 42 H, Creatinine 3.81 H, Glucose 179 H, Total Bilirubin 0.6, AST 35, ALT 33, Alkaline Phosphatase 52, Lipase 57 L Assessment and Plan - Problems (Diagnosis) (1) Severe sepsis Current Visit: Yes Status: Acute (2) Catheter-associated urinary tract infection Current Visit: Yes Status: Acute Qualifiers: Indwelling urinary catheter type: indwelling urethral catheter Encounter type: initial encounter Qualified Code(s): T83.511A - Infection and inflammatory reaction due to indwelling urethral catheter, initial encounter; N39.0 - Urinary tract infection, site not specified (3) Chronic a-fib Current Visit: Yes Status: Acute (4) Acute renal failure Current Visit: No Status: Acute Qualifiers: Acute renal failure type: unspecified Qualified Code(s): N17.9 - Acute kidney failure, unspecified (5) Chronic indwelling Sims catheter Onset Date: 04/29/18 Current Visit: No Status: Chronic (6) History of pulmonary embolus (PE) Onset Date: 05/26/16 Current Visit: No Status: Chronic (7) Morbid obesity Onset Date: 08/24/16 Current Visit: No Status: Chronic - Plan The patient will be admitted to the hospital due to severe sepsis, likely secondary to catheter related UTI. He has also diarrhea, c.diff already ordered. Will continue with fluid replacement per sepsis protocol, IV zosyn and Vancomycin. For acute renal injury, will continue fluid challenge. - Advance Directives Does patient have a Living Will: Yes Does patient have a Durable POA for Healthcare: Yes - Code Status/Comfort Care Code Status Assessed: Yes Code Status: Full Code
[2019-01-09 21:18] LABS: Urine Blood 3+ (NEG); Urine Glucose NEGATIVE (NEG); Urine Protein 2+ (NEG)
[2019-01-09] MEDS ORDERED: NA CHLORIDE 0.9% 2,000 ML ONE (22:10)
[2019-01-09] MEDS ORDERED: NA CHLORIDE 0.9% 500 ML IV ONE (23:43)
[2019-01-09] MEDS ORDERED: SODIUM CHL 0.9% 1000 ML BAG IV ONE (23:43)
[2019-01-10] MEDS ORDERED: NOREPINEPHRINE 4mg/D5W 250mL 4 MG/250 ML BAG IV ONE ×2 (00:07→05:16)
[2019-01-10] MEDS: NA CHLORIDE 0.9% 1,000 ML IV SCH ×5 (01:00→22:29)
[2019-01-10] MEDS ORDERED: VANCOMYCIN 1 GM/VIAL ONE (02:14)
[2019-01-10] MEDS ORDERED: NA CHLORIDE 0.9% 500 ML ONE (02:14)
[2019-01-10] MEDS ORDERED: PIPERACIL/TAZO 2.25 GM VIAL IV ONE (02:28)
[2019-01-10] MEDS ORDERED: NA CHLORIDE 0.9% 50 ML ONE (02:29)
[2019-01-10] MEDS: PIPER/TAZO/NS 2.25gm 2.25 GM/50 ML BAG IVPB SCH ×3 (02:30→16:42)
[2019-01-10] MEDS ORDERED: VANCOMYCIN 1.5 GM in NA CHLORIDE 0.9% 500 ML IVPB ONE (03:19)
[2019-01-10] MEDS ORDERED: VANCOMYCIN 3 GM in NA CHLORIDE 0.9% 500 ML IV SCH (04:00)
[2019-01-10] MEDS ORDERED: NA CHLORIDE 0.9% 1,000 ML IV ONE (04:16)
[2019-01-10] MEDS ORDERED: NOREPINEPHRINE 4 MG in D5W 250 ML IV PRN (04:20)
[2019-01-10 05:01] LABS: Absolute Lymphocytes (CBC) 0.7 K/uL (0.7-4.9); Absolute Neutrophil 24.8 K/uL (1.8-8.0); Basophils % 0.1 % (0-1.3); Eosinophils % 0.3 % (0-4.4); Hematocrit 37.5 % (39.6-49.0); Lymphocytes % 2.6 % (15.3-44.8); MPV 8.2 fL (7.6-11.3); Monocytes % 3.8 % (3.3-12.3); RBC Red Blood Cell Count 3.87 M/uL (4.33-5.43)
[2019-01-10 05:29] LABS: Albumin 2.3 g/dL (3.4-5.0); Bilirubin Total 0.8 mg/dL (0.2-1.0); Potassium 5.1 mmol/L (3.5-5.1); Protein, Total 6.4 g/dL (6.4-8.2)
--- NOTE | 2019-01-10 05:42 | P.INFCA ---
Sepsis Focused Assessment - Sepsis Screen Result Severe Sepsis: Positive Septic Shock: Positive - Evaluation Current stage of sepsis: Septic shock - Vital Signs Reviewed: Yes Heart rate: 117 Blood Pressure: 86/67 Respiratory Rate: 12 O2 Sat by Pulse Oximetry: 96 - Examination Date exam was performed: 01/10/19 Time exam was performed: 02:00 Heart: Irregular rhythm, Tachycardia Lungs: Diminished air movement Peripheral pulses: 0+ Absent Peripheral pulse location: Radial, Femoral Capillary refill: <2 Seconds Skin examination: Normal turgor
--- NOTE | 2019-01-10 08:10 | RAD REPORT ---
EXAM DESCRIPTION: RAD - Ankle Left 3 View - 01/09/2019 10:08 pm CLINICAL HISTORY: PAIN Fall, ankle pain COMPARISON: No comparisons FINDINGS: Prominent posterior and plantar calcaneal spurs are seen. Moderate arthritic changes are s een involving the tibiotalar and subtalar joints. No acute fracture is identified.
--- NOTE | 2019-01-10 08:11 | RAD REPORT ---
EXAM DESCRIPTION: RAD - Foot Left 3 View - 01/09/2019 10:09 pm CLINICAL HISTORY: swelling, pain Fall, pain COMPARISON: No comparisons FINDINGS: Flatfoot deformity is seen with prominent posterior and plantar calcaneal spurs. Bony irre gularity seen along the base of the third and fourth metacarpals which suggests impacted fracture. No dislocation evident.
--- NOTE | 2019-01-10 08:11 | RAD REPORT ---
EXAM DESCRIPTION: RAD - Knee Left 2 View - 01/09/2019 10:08 pm CLINICAL HISTORY: PAIN Trauma, pain and swelling. COMPARISON: Knee Left 2 View dated 05/29/2016 FINDINGS: Severe osteoarthritis involves the medial joint compartment with [id number]. No acute fr acture demonstrated. No significant suprapatellar joint effusion. IMPRESSION: Severe medial compartment space osteoarthritis.
--- NOTE | 2019-01-10 08:49 | EKG ---
Test Date: 2019-01-09 Test Time: 17:30:56 Obstetrics Nurse: KIRSTIN MEASUREMENT RESULTS: Intervals: Rate: 111 AK: QRSD: 118 QT: 344 QTc: 467 [place]: P: AK: QRS: -20 T: 102 INTERPRETIVE STATEMENTS: Atrial fibrillation with rapid ventricular response with premature ventricular or aberrantly conducted complexes Low voltage QRS Incomplete right bundle branch block Nonspecific T wave abnormality, probably digitalis effect Abnormal ECG Compared to ECG 04/28/2018 21:37:53 Ventricular premature complex(es) now present Incomplete right bundle-branch block now present T-wave abnormality now present Left-axis deviation no longer present Right bundle-branch block no longer present Electronically Signed On 01-10-19 08:46:11 CONFIDENTIAL INVESTIGATOR by Corey Navarrete
[2019-01-10] MEDS ORDERED: LORATADINE 10 MG TAB PO PRN (10:29)
[2019-01-10] MEDS ORDERED: DICYCLOMINE HCL 10 MG CAP PO ONE (10:42)
[2019-01-10] MEDS: PANTOPRAZOLE 40MG TABLET PO SCH (11:09)
[2019-01-10] MEDS: SERTRALINE HCL 50 MG TAB PO SCH (11:10)
[2019-01-10] MEDS: LACTOBACILLUS/ACIDOPHILUS TAB PO SCH (11:10)
[2019-01-10] MEDS: FERROUS SULFATE 325 MG TAB PO SCH (11:10)
--- NOTE | 2019-01-10 13:46 | RAD REPORT ---
EXAM DESCRIPTION: Chest Single View CLINICAL HISTORY: 78 years Male, PICC Placement COMPARISON: None. TECHNIQUE: Placement of a left upper extremity PICC line terminating in the proximal SVC. No focal lung consolidation. Diffuse prominence of interstitial markings and vascular congestion. Left pleural effusion. No pneumothorax. Cardiac silhouette is enlarged. No acute osseous abnormality. FINDINGS: Appropriately placed left upper extremity PICC. Left pleural effusion, cardiomegaly and vascular congestion. Electronically signed by Ulises Meier DO 01/10/2019 1:53 AM MANAGER HAIR Due to temporary technical issues with the PACS/Fluency reporting system, reports are being signed by the in house radiologist as a courtesy to ensure prompt reporting. The interpreting radiologist is f ully responsible for the content of the report.
[2019-01-10] MEDS: NOREPINEPHRINE 8 MG in Dextrose 5%-Water 500 ML IV PRN ×2 (14:03→22:31)
[2019-01-10] MEDS: ACETAMINOPHEN 325 MG TABLET PO PRN (16:42)
[2019-01-10] MEDS ORDERED: WARFARIN SODIUM 5 MG TAB PO SCH (17:00)
--- NOTE | 2019-01-10 18:14 | P.CNS ---
Date of Consult: 01/10/19 Reason for Consult: KAYLAH Requesting Physician: Brittney Park Chief Complaint: severe sepsis History of Present Illness: is a 78 years old male, morbidly obese, with history of HTN, CAD, HX of PE/DVT, chronic A.fib, anticoagulated with warfarin, chronic lypmhedema, who started last night with diarrhea. He denied fever, but has been cold with chills. This morning the patient was more lethargic, he actually fell when he walked to the bath room. EMS was called, and he was helped to return to his bed , de refused transfer to the hospital. However, this afternoon, the patient become confused, then his daughter called EMS again and was transferred to ED. Lab work shows leukocytosis with bandemia, increased lactate and procalcitonin. Creatinine is elevated as well. His initial blood pressure was on the lower side, it improved after fluid resuscitation. UA abnormal consitent with UTI. He has chronic sims catheter, last exchange was this morning, and previously 2 weeks ago. 21:32 This 78 yrs old Male presents to ER via EMS with complaints of Altered Mental gs Status, Fall Injury. 21:32 The patient presents with confusion. Onset: The symptoms/episode began/ occurred today. gs Possible causes: unknown. Associated signs and symptoms: Pertinent positives: shortness of breath. Associated signs and symptoms: Pertinent positives: diarrhea. Current symptoms: In the emergency department the patient's symptoms are unchanged from the initial presentation. The patient has experienced similar episodes in the past, a few times. Allergies paroxetine HCl [From Paxil] Allergy (Intermediate, Verified 11/24/15 09:31) HALLUCINATIONS clopidogrel bisulfate [From Plavix] Allergy (Verified 11/24/15 09:31) Unknown Sulfa (Sulfonamide Antibiotics) Allergy (Verified 07/16/17 03:10) Hives chlorpromazine HCl [From Thorazine] Adverse Reaction (Intermediate, Verified 03:10) HALLUCINATIONS fluoxetine HCl [From Prozac] Adverse Reaction (Intermediate, Verified 07/16/17 03:10) HALLUCINATIONS thorazine Allergy (Uncoded 07/16/17 03:10) Unknown Home medications list reviewed: Yes Home Medications: Loratadine [Claritin*] 10 mg PO DAILYPRN PRN 07/16/17 Pantoprazole [Protonix Tab*] 40 mg PO DAILY 07/16/17 Phenazopyrididine [Pyridium*] 200 mg PO TIDP PRN 07/16/17 Sertraline HCl 50 mg PO DAILY 07/16/17 Trazodone [Desyrel*] 100 mg PO BEDTIME 07/16/17 Trimethoprim 100 mg PO DAILY 07/16/17 diphenhydrAMINE HCl [Diphenhydramine HCl] 25 mg PO BEDTIME 07/16/17 Cholecalciferol (Vitamin D3) [Vitamin D3] 50 mcg PO DAILY 04/29/18 Ferrous Sulfate [Ferrous Sulfate*] 65 mg PO DAILY 04/29/18 Mv,Minerals/FA/Lycopene/Ginkgo [One Daily Men's 50+ Tablet] 1 tab PO DAILY 04/29 Simethicone [Gas Relief] 250 mg PO BEDTIME 04/29/18 Warfarin Sodium [Coumadin*] 2.5 mg PO SEECOM 04/29/18 Warfarin Sodium [Coumadin*] 5 mg PO SEECOM 04/29/18 Docusate [Colace Cap*] 100 mg PO DAILY PRN #30 cap 05/03/18 Gabapentin [Neurontin] 600 mg PO QID #120 tablet 05/03/18 Ascorbic Acid [Vitamin C with Raquel Hips] 500 mg PO DAILY 01/09/19 Glucerna Shake [Glucerna*] 237 ml PO BID 01/09/19 Hydromorphone [Dilaudid*] 4 mg PO QID 01/09/19 Lactobacillus Acidophilus [Digestive Probiotic] 1 cap PO DAILY 01/09/19 Metoprolol Tartrate [Lopressor*] 25 mg PO BID 01/09/19 - Past Medical/Surgical History Diabetic: No -: CHF -: HTN -: Lymphedema to the lower extremities -: Chronic indwelling urinary catheter -: Spinal stenosis of the back, chronic back pain -: History of DVT/PE, 1984, 1994 -: 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 -: GERD -: Iron deficiency anemia -: Large left-sided abdominal wall hernia -: Moderate-sized right sided abdominal wall hernia below the pannus. 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 He has no children. 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 - Family History Father Medical History: Heart disease, Hypertension, GI disease Mother Medical History: Heart disease - Social History Smoking Status: Never smoker Alcohol use: No CD- Drugs: No Caffeine use: Yes Place of Residence: Home Review of Systems 10-point ROS is otherwise unremarkable General: Weakness, Malaise Respiratory: SOB with Excertion Cardiovascular: Edema Gastrointestinal: Nausea, Abdominal Pain Neurological: Weakness Physical Examination Temp Pulse Resp BP Pulse Ox 99.8 F 114 H 18 93/74 97 01/10/19 16:00 01/10/19 16:00 01/10/19 16:00 01/10/19 15:15 01/10/19 16:00 General: Alert, In no apparent distress, Cooperative HEENT: Atraumatic, Mucous membr. moist/pink Neck: Supple Respiratory: Diminished Cardiovascular: Regular rate/rhythm, Edema Gastrointestinal: Hypoactive, Tenderness Musculoskeletal: No clubbing, No contractures Integumentary: No cyanosis, Skin lesion, Venous stasis ulcer Neurological: Normal speech Laboratory Data (last 24 hrs) 01/09/19 18:07: PT 31.6 H, INR 2.79 01/09/19 18:07: WBC 32.9 H*, Hgb 13.2 L, Hct 40.7, Plt Count 164 01/09/19 18:07: Sodium 131 L, Potassium 5.4 H, BUN 42 H, Creatinine 3.81 H, Glucose 179 H, Total Bilirubin 0.6, AST 35, ALT 33, Alkaline Phosphatase 52, Lipase 57 L Imagings Data: EXAM DESCRIPTION: CT - Chest Abd Pelvis Wo Con - 01/09/2019 6:57 pm CLINICAL HISTORY: Chest and abdomen pain. ABDOMINAL DISTENTION COMPARISON: CTANGIO CHEST FOR PE dated 06/25/2014 TECHNIQUE: A limited noncontrast study was performed. All CT scans are performed using dose optimization technique as appropriate and may include automated exposure control or mA/KV adjustment according to patient size. FINDINGS: Mild linear subsegmental atelectasis is present in both lung bases.No pleural or pericardial effusion.No intrathoracic adenopathy.Postsurgical changes are seen about the stomach with distention of the esophagus Limited noncontrast assessment of the liver, spleen, adrenal glands and kidneys show no acute abnormality. Pancreatic atrophy is seen. Due to patient's large pannus, significant amount of the bowel is not included on this study. Within the limitations of this, no acute bowel finding. No free air or bowel obstruction. Urinary bladder is decompressed by means of Sims catheter. Moderate fat containing right inguinal hernia. No pathologic lymphadenopathy in the abdomen or pelvis. No free fluid or hematoma. Moderate lumbar degenerative changes. IMPRESSION: No acute finding is demonstrated within the above detailed limitations. Conclusions/Impression: A/ KAYLAH likely ATN vs Prerenal azotemia. CKD III with proteinuria. Hyponatremia. Hyperkalemia. DM II with CKD. Diastolic CHF, chronic. Chronic Afib. Hypocalcemia. Moderate protein malnutrition. Hypoalbuminemia. Morbid Obesity with chronic lymphedema. Sepsis/ Shock. Acute ESBL E.coli Cystitis. P/ Continue current POC and Medications. Reduce IVF due to hx CHF. Morbid obesity make it difficult to assess volume status. Pressor support as ordered. Broad spectrum abx. Replete lytes as ordered. Hold iron supplementation. No NSAIDs. AM labs. Daily weight. Thank you for the consultation. Critical Care: Yes ( Greater than 30 minutes patient care.)
--- NOTE | 2019-01-10 18:28 | PN ---
Date of Progress Note: 01/10/2019 History: The patient seen and examined. Chart reviewed and case discussed with RN. The patient states he has some headache, overall feels weak and has some pain in his left leg where he fell, otherwise doing better. Still on Levophed. Medications: List reviewed. Code Status: Full code. Physical Examination: Vital Signs: Temperature 99.8, heart rate 117, blood pressure 103/89, respirations 24, O2 98% on 3.5 L via nasal cannula. General: Awake, alert, oriented x3. Elderly male, ill appearing, morbidly obese, BMI 53. CV: S1, S2. Regular rate and rhythm. Peripheral pulses present. Respiratory: Moving air well bilaterally. No wheezing or stridor. Gastrointestinal: Abdomen is soft, mildly distended. Multiple hernias present , not reducible. No signs of strangulation. Bowel sounds hypoactive. Extremities: No clubbing, cyanosis. The patient does have peripheral edema. Skin: The patient has chronic venous stasis changes, bilateral lower extremities. Neurologic: Nonfocal. Laboratory Data: Sodium 133, potassium 5.1, chloride 99, CO2 23, BUN 51, creatinine 4.23, glucose 167, lactate 2.6, calcium 7.4. Troponin 0.05 and 0.05. WBC 26.7, H and H 12.5 and 37.5, platelets 148, neutrophils 93%. No bands. Blood cultures pending. Urine culture is growing out 4+ gram-negative rods. ID and sensitivity are pending. Stool studies also pending. Assessment And Plan: A 78-year-old male with: 1. Sepsis secondary to urinary tract infection with shock. The patient currently on Levophed at 15 mcg to keep the MAP at 65 or above. We will continue with broad-spectrum IV antibiotics and follow up on cultures. 2. Catheter-associated urinary tract infection, initial encounter. Acute cystitis. Gram-negative rods growing out of urine culture. We will continue IV antibiotics and follow up with infectious disease and sensitivity. 3. Chronic atrial fibrillation. The patient is on blood thinners. We will continue to monitor. Continue rate control. 4. Acute kidney injury. Baseline is normal. We will consult Nephrology. Likely due to severe sepsis. 5. History of pulmonary embolus, on blood thinners. 6. Morbid obesity, BMI 53.8. 7. Congestive heart failure, last known ejection fraction is 71%, diastolic dysfunction. 8. Hyponatremia. 9. Elevated cardiac enzymes. Likely related to sepsis and demand mismatch. 10. Chronic lymphedema of the lower extremities. 11. Status post mechanical fall. 12. Chronic back pain. 13. Gastroesophageal reflux disease without esophagitis. Continue PPI. 14. Multiple abdominal wall hernias Plan: We will continue to monitor in ICU setting, wean off Levophed as tolerated. Continue IV fluids and broad-spectrum IV antibiotics. Follow up on cultures. Monitor INR. SA/MODL Voice ID: [id number] Report ID: [id number] DEEDEE
[2019-01-10] MEDS: GLUCERNA SHAKE 237 ML CAN PO SCH (22:31)
[2019-01-11] MEDS: PIPER/TAZO/NS 2.25gm 2.25 GM/50 ML BAG IVPB SCH (01:57)
[2019-01-11 05:26] LABS: Absolute Lymphocytes (CBC) 0.5 K/uL (0.7-4.9); Absolute Monocytes 0.9 K/uL (0.1-1.3); Absolute Neutrophil 16.7 K/uL (1.8-8.0); Eosinophils % 1.4 % (0-4.4); Hematocrit 36.2 % (39.6-49.0); Lymphocytes % 2.6 % (15.3-44.8); MPV 8.6 fL (7.6-11.3); Monocytes % 5.2 % (3.3-12.3)
[2019-01-11] MEDS ORDERED: ONDANSETRON 4 MG/2 ML VIAL IV PRN (05:51)
[2019-01-11 05:54] LABS: Albumin 2.2 g/dL (3.4-5.0); Bilirubin Total 0.9 mg/dL (0.2-1.0); Magnesium 1.8 mg/dL (1.8-2.4); Phosphorus 4.3 mg/dL (2.5-4.9); Potassium 5.1 mmol/L (3.5-5.1); Protein, Total 6.4 g/dL (6.4-8.2); Uric Acid 7.7 mg/dL (3.5-7.2)
[2019-01-11 05:54] LABS: Urine Appearance TURBID; Urine Blood 3+ (NEG); Urine Color OTHER; Urine Glucose NEGATIVE (NEG); Urine Protein 3+ (NEG); Urine Specific Gravity 1.015 (1.005-1.030); Urine Urobilinogen 0.2 mg/dL (0.2-1.0)
[2019-01-11 05:58] LABS: Protime INR 2.93
[2019-01-11 06:12] LABS: Urine Bilirubin NEGATIVE (NEG)
[2019-01-11 06:27] LABS: Urine Bacteria >50 /HPF (NONE SEEN); Urine Culture Reflex Order NOT NEEDED; Urine RBC >50 /HPF (NONE SEEN)
[2019-01-11] MEDS: NOREPINEPHRINE 8 MG in Dextrose 5%-Water 500 ML IV PRN ×2 (07:44→08:18)
[2019-01-11] MEDS: PANTOPRAZOLE 40MG TABLET PO SCH (08:47)
[2019-01-11] MEDS: FERROUS SULFATE 325 MG TAB PO SCH (08:47)
[2019-01-11] MEDS: SERTRALINE HCL 50 MG TAB PO SCH (08:47)
[2019-01-11] MEDS: LACTOBACILLUS/ACIDOPHILUS TAB PO SCH (08:47)
[2019-01-11] MEDS ORDERED: Meropenem 500 MG VIAL IV SCH (09:00)
[2019-01-11] MEDS ORDERED: HYDROMORPHONE ORAL 2 MG TAB PO SCH (09:00)
[2019-01-11] MEDS: Meropenem 500 MG in NA CHLORIDE 0.9% 100 ML IV SCH ×2 (09:56→20:55)
[2019-01-11] MEDS: GLUCERNA SHAKE 237 ML CAN PO SCH ×2 (09:56→20:55)
[2019-01-11] MEDS: NA CHLORIDE 0.9% 1,000 ML IV SCH ×2 (09:57→20:55)
[2019-01-11] MEDS ORDERED: WARFARIN SODIUM 5 MG TAB PO SCH (17:00)
[2019-01-11] MEDS: HYDROMORPHONE ORAL 2 MG TAB PO SCH (17:20)
--- NOTE | 2019-01-11 17:20 | PN ---
Date of Progress Note: 01/11/2019 Subjective: Patient was seen and examined. Chart reviewed and case was discussed with RN. The patient states he is doing better, however, did have some nausea and vomiting last night, unable to really tolerate his breakfast this morning. Tolerating liquids. Medications: List reviewed. Physical Examination: Vital Signs: Temperature 99.8, heart rate 111, respirations 21, O2 97% on 3.5 L via nasal cannula. General: Awake, alert, oriented x3. Elderly morbidly obese ill-appearing male. CV: S1 and S2. Irregularly irregular. Peripheral pulses present. Respiratory: Diminished breath sounds at the bases, otherwise moving air well. Gastrointestinal: Abdomen is soft, nontender, nondistended. Positive bowel sounds. Multiple large hernias present, nonreducible. Extremities: No clubbing, cyanosis. The patient has peripheral edema. Skin: Chronic venous stasis changes of lower extremities. The patient also has some ecchymosis of the left foot. Musculoskeletal: Pain and tenderness to palpation of the left dorsum of the foot. Neurologic: Nonfocal. Laboratory Data: Sodium 128, potassium 5.1, chloride 97, CO2 20, BUN 63, creatinine 5.42, glucose 189, uric acid 7.7, calcium 7, phosphorus 4.3, magnesium 1.8, albumin 2.2, INR 2.93. WBC 18.4, H and H 12.2 and 36.2, platelets 116, neutrophils 90%. Urine cultures growing out ESBL Escherichia coli. Blood cultures also growing out gram-negative rods. ID and sensitivity pending. C. difficile is also pending. Assessment And Plan: A 78-year-old male with, 1. Sepsis secondary to urinary tract infection secondary to extended-spectrum beta-lactamase Escherichia coli. We will continue IV antibiotics, switch to meropenem, discontinue vancomycin and Zosyn. Blood culture is also growing gram -negative rods. ID and sensitivity pending. 2. Septic shock. Continue Levophed. We will wean as tolerated. Keep MAP at 65 or above. 3. Catheter associated urinary tract infection, acute cystitis secondary to extended-spectrum beta-lactamase Escherichia coli. We will switch over to meropenem. We will consult Infectious Disease. The patient will need minimum of 2-4 weeks of IV antibiotics. We will obtain PICC line. 4. Chronic atrial fibrillation. Continue blood thinners. INR is therapeutic. Continue rate control. 5. Bacteremia secondary to gram-negative rods, most likely also extended- spectrum beta-lactamase Escherichia coli. Will await final ID and sensitivity. Continue meropenem. 6. Acute kidney injury. Baseline was initially normal, likely secondary to hypotension from shock. Creatinine is worsening. Discontinue vanc and Zosyn. We will continue to monitor urine output closely. May need to be started on dialysis. Appreciate Nephrology input. Continue IV fluids. 7. History of pulmonary embolism. Continue blood thinners, therapeutic INR. 8. Morbid obesity, BMI of 53.8. 9. Severe protein-calorie malnutrition, albumin is 2.2. 10. Congestive heart failure, diastolic dysfunction, last known EF is 71%. 11. Hyponatremia, worsening. Adjust IV fluids and continue to monitor. 12. Elevated cardiac enzymes secondary to sepsis and demand mismatch. No chest pain. 13. Chronic lymphedema of the lower extremities. 14. Status post mechanical fall. 15. Fracture of the third and fourth metacarpals on the left, impacted fracture, no dislocation. 16. Chronic back pain, midline, without sciatica. The patient is dependent on chronic narcotics, currently having some withdrawal symptoms. We will resume Dilaudid at lower dose at lower frequency. 17. Gastroesophageal reflux disease without esophagitis. We will continue PPI. 18. Multiple abdominal wall hernias, not able to be reduced. The patient will need outpatient surgical evaluation once his sepsis and acute infection has improved. 19. Deep vein thrombosis prophylaxis. The patient is already on blood thinners with Coumadin and therapeutic INR. Plan: Continue to monitor in ICU setting. ID consultation. The patient will need a PICC line for long-term IV antibiotics for ESBL Escherichia coli. Follow up on blood cultures. /MEGHANA Voice ID: [id number] Report ID: [id number] DEEDEE
--- NOTE | 2019-01-11 20:57 | P.PN ---
Date of Service: 01/11/19 Vital Signs Temp Pulse Resp BP Pulse Ox 98.5 F 118 H 14 113/62 99 01/11/19 16:00 01/11/19 18:00 01/11/19 18:00 01/11/19 18:00 01/11/19 18:00 Medications Acetaminophen (Tylenol -Tablet) 650 mg PO Q6H PRN PRN Reason: Pain scale 2-4 (Mild) Stop: 02/09/19 16:20 Last Admin: 01/10/19 16:42 Dose: 650 mg Calcitriol (Rocaltrol) 0.5 mcg PO DAILY JELENA Stop: 02/10/19 21:01 Cholecalciferol (Vitamin D 5,000 Iu Cap) 5,000 unit PO DAILY [facility] Stop: 02/11/19 09:01 Enteral Nutritional Formula (Glucerna Shake) 237 ml PO BID [facility] Stop: 02/09/19 21:01 Last Admin: 01/11/19 09:56 Dose: 237 ml Hydromorphone HCl (Dilaudid) 2 mg PO Q8HR JELENA Stop: 02/10/19 17:01 Last Admin: 01/11/19 17:20 Dose: 2 mg Norepinephrine Bitartrate 8 mg (/ Dextrose) 508 mls @ 0 mls/hr IV PRN PRN; Protocol PRN Reason: Hemodynamic Parameters Stop: 02/09/19 13:27 Last Admin: 01/11/19 08:18 Dose: 508 mls Sodium Chloride (Ns 1000 Ml Ivbag) 1,000 mls @ 75 mls/hr IV .[id number] [facility] Stop: 02/09/19 21:01 Last Admin: 01/11/19 09:57 Dose: 1,000 mls Meropenem 500 mg/ Sodium (Chloride) 100 mls @ 100 mls/hr IV Q12HR JELENA Stop: 02/10/19 09:01 Last Admin: 01/11/19 09:56 Dose: 100 mls Lactobacillus Acidoph/Bulgaricus (Lactinex) 1 tab PO DAILY JELENA Stop: 02/10/19 09:01 Last Admin: 01/11/19 08:47 Dose: 1 tab Loratadine (Claritin) 10 mg PO DAILYPRN PRN PRN Reason: ALLERGIES Stop: 02/09/19 10:30 Magnesium Oxide (Mag 0x Tab) 400 mg PO BID [facility] Stop: 02/10/19 21:01 Ondansetron HCl (Zofran) 4 mg IV Q6H PRN PRN Reason: NAUSEA / VOMITING Stop: 02/10/19 05:52 Last Admin: 01/11/19 06:05 Dose: 4 mg Pantoprazole Sodium (Protonix Tab) 40 mg PO DAILY [facility] Stop: 02/10/19 09:01 Last Admin: 01/11/19 08:47 Dose: 40 mg Sertraline HCl (Zoloft) 50 mg PO DAILY [facility] Stop: 02/10/19 09:01 Last Admin: 01/11/19 08:47 Dose: 50 mg Sodium Bicarbonate (Sodium Bicarb 325 Mg) 650 mg PO BIDL [facility] Stop: 02/11/19 09:01 Sodium Bicarbonate (Sodium Bicarb 325 Mg) 1,300 mg PO 1X ONE Stop: 01/11/19 21:01 Warfarin Sodium (Coumadin) 2.5 mg PO Q48H JELENA Stop: 02/10/19 17:01 Last Admin: 01/11/19 17:20 Dose: 2.5 mg Warfarin Sodium (Coumadin) 5 mg PO Q48H JELENA Stop: 02/09/19 17:01 Last Admin: 01/10/19 16:42 Dose: 5 mg Microbiology Results 01/09/19 18:27 Clean Catch Urine Center Count - Final >100,000 CFU/ML. 01/09/19 18:27 Clean Catch Urine - Final Escherichia Coli Esbl 01/09/19 18:07 Blood - Blood Aerobic Blood Culture - Preliminary 01/09/19 18:07 Blood - Blood Gram Stain - Preliminary 01/09/19 18:07 Blood - Blood Anaerobic Blood Culture - Final 01/09/19 17:55 Blood - Blood Aerobic Blood Culture - Preliminary 01/09/19 17:55 Blood - Blood Gram Stain - Preliminary 01/09/19 17:55 Blood - Blood Anaerobic Blood Culture - Final Assessment/ Plan: Nephrology. Nurse reports improved BP today but with persistent tachycardia. CPS stable without CP or SOB. +FINK Nausea and anorexia with associated abd pain. No acute events overnight. Vitals, medications, blood work and imaging reviewed in the chart. General: Alert, In no apparent distress, Cooperative HEENT: Atraumatic, Mucous membr. moist/pink Neck: Supple Respiratory: Diminished Cardiovascular: Regular rate/rhythm, Edema Gastrointestinal: Hypoactive, Tenderness Musculoskeletal: No clubbing, No contractures Integumentary: No cyanosis, Skin lesion, Venous stasis ulcer Neurological: Normal speech Hannah. Laboratory Data (last 24 hrs) 01/09/19 18:07: PT 31.6 H, INR 2.79 01/09/19 18:07: WBC 32.9 H*, Hgb 13.2 L, Hct 40.7, Plt Count 164 01/09/19 18:07: Sodium 131 L, Potassium 5.4 H, BUN 42 H, Creatinine 3.81 H, Glucose 179 H, Total Bilirubin 0.6, AST 35, ALT 33, Alkaline Phosphatase 52, Lipase 57 L Greater than 30 minutes patient care. Imagings Data: EXAM DESCRIPTION: CT - Chest Abd Pelvis Wo Con - 01/09/2019 6:57 pm CLINICAL HISTORY: Chest and abdomen pain. ABDOMINAL DISTENTION COMPARISON: CTANGIO CHEST FOR PE dated 06/25/2014 TECHNIQUE: A limited noncontrast study was performed. All CT scans are performed using dose optimization technique as appropriate and may include automated exposure control or mA/KV adjustment according to patient size. FINDINGS: Mild linear subsegmental atelectasis is present in both lung bases.No pleural or pericardial effusion.No intrathoracic adenopathy.Postsurgical changes are seen about the stomach with distention of the esophagus Limited noncontrast assessment of the liver, spleen, adrenal glands and kidneys show no acute abnormality. Pancreatic atrophy is seen. Due to patient's large pannus, significant amount of the bowel is not included on this study. Within the limitations of this, no acute bowel finding. No free air or bowel obstruction. Urinary bladder is decompressed by means of Hannah catheter. Moderate fat containing right inguinal hernia. No pathologic lymphadenopathy in the abdomen or pelvis. No free fluid or hematoma. Moderate lumbar degenerative changes. IMPRESSION: No acute finding is demonstrated within the above detailed limitations. Conclusions/Impression: A/ KAYLAH likely ATN vs Prerenal azotemia. CKD III with proteinuria. Hyponatremia. Hyperkalemia. Acidosis. DM II with CKD. Diastolic CHF, chronic. Chronic Afib. Hypocalcemia. Moderate protein malnutrition. Hypoalbuminemia. Morbid Obesity with chronic lymphedema. Sepsis/ Shock. Acute ESBL E.coli Cystitis. P/ Continue current POC and Medications. Gentle IVF. Monitor volume status closely. Pressor support as ordered. Broad spectrum abx. Replete lytes as ordered. Consider low dose diltiazem due to persistent tachycardia. Start MagOx. Start Vitamin D. Start Sodium bicarb. Free water restriction due to worsening hyponatremia. Pharmacy to restrict free water in IV meds. No NSAIDs. AM labs. Daily weight.
[2019-01-11] MEDS ORDERED: SODIUM BICARB 325 MG TAB PO ONE (21:00)
[2019-01-11] MEDS: DILTIAZEM HCL 60 MG TAB PO SCH (23:16)
[2019-01-11] MEDS: MAGNESIUM OXIDE 400 MG TAB PO SCH (23:16)
[2019-01-11] MEDS: CALCITROL 0.25 MCG CAP PO SCH (23:17)
[2019-01-12] MEDS: HYDROMORPHONE ORAL 2 MG TAB PO SCH ×3 (01:19→17:16)
[2019-01-12] MEDS ORDERED: VANCOMYCIN 2 GM in NA CHLORIDE 0.9% 500 ML IVPB SCH ×2 (02:00→16:00)
[2019-01-12] MEDS: DILTIAZEM HCL 60 MG TAB PO SCH ×4 (05:19→17:17)
[2019-01-12 06:49] LABS: Absolute Lymphocytes (CBC) 0.4 K/uL (0.7-4.9); Absolute Monocytes 0.7 K/uL (0.1-1.3); Absolute Neutrophil 10.9 K/uL (1.8-8.0); Basophils % 0.3 % (0-1.3); Hematocrit 33.3 % (39.6-49.0); Lymphocytes % 3.5 % (15.3-44.8); MPV 8.7 fL (7.6-11.3); RBC Red Blood Cell Count 3.45 M/uL (4.33-5.43)
[2019-01-12 07:02] LABS: Protime INR 5.08
[2019-01-12 07:14] LABS: Albumin 1.8 g/dL (3.4-5.0); Bilirubin Total 0.6 mg/dL (0.2-1.0); Potassium 4.9 mmol/L (3.5-5.1); Protein, Total 5.8 g/dL (6.4-8.2); Uric Acid 7.5 mg/dL (3.5-7.2)
[2019-01-12 07:17] LABS: UR MICROALBUMIN 26.2 mg/dL (< 1.9)
[2019-01-12] MEDS: LACTOBACILLUS/ACIDOPHILUS TAB PO SCH (09:00)
[2019-01-12] MEDS: Meropenem 500 MG in NA CHLORIDE 0.9% 100 ML IV SCH ×2 (09:30→20:41)
[2019-01-12] MEDS: PANTOPRAZOLE 40MG TABLET PO SCH (09:31)
[2019-01-12] MEDS: SERTRALINE HCL 50 MG TAB PO SCH (09:31)
[2019-01-12] MEDS: VITAMIN D 5,000 UNIT CAP PO SCH (09:31)
[2019-01-12] MEDS: MAGNESIUM OXIDE 400 MG TAB PO SCH ×2 (09:31→20:31)
[2019-01-12] MEDS: SODIUM BICARB 325 MG TAB PO SCH ×2 (09:31→17:17)
[2019-01-12] MEDS: CALCITROL 0.25 MCG CAP PO SCH (09:33)
[2019-01-12] MEDS: GLUCERNA SHAKE 237 ML CAN PO SCH (09:35)
[2019-01-12] MEDS: NA CHLORIDE 0.9% 1,000 ML IV SCH (12:57)
--- NOTE | 2019-01-12 14:06 | PN ---
Date of Progress Note: 01/12/2019 Subjective: The patient seen and examined. Chart reviewed and case discussed with RN. The patient having significant amount of swelling of the extremities. Does report some nausea. Medications: List reviewed. Physical Examination: Vital Signs: Temperature 98.3, heart rate 119, blood pressure 114/80, respirations 10, O2 96% on 3 L via nasal cannula. General: Awake, alert, oriented x3. Elderly male, morbidly obese, ill-appearing. CV: S1 and S2. Irregularly irregular rhythm. Peripheral pulses present. Respiratory: Diminished breath sounds. Gastrointestinal: Abdomen is soft, nondistended. Positive bowel sounds. Multiple hernias not reduc ible. Extremities: No clubbing or cyanosis. The patient has 3+ edema upper and lower extremities. Neurologic: Nonfocal. Skin: Ecchymosis on the left foot dorsal aspect. Laboratory Data: Sodium 132, potassium 4.9, chloride 102, CO2 20, BUN 71, creatinine 5.39, glucose 1 75. Serum osmolality 293, uric acid is 7.5, calcium 6.3, albumin 1.8. WBC 12.4, H and H 11 and 33.3 , platelets 104, neutrophils 88%. Microbiology; E coli ESBL producing in urine and in blood. Assessment And Plan: A 78-year-old male with: 1.Sepsis with shock secondary to urinary tract infection secondary to extended-spectrum beta-lactama se Escherichia coli. Continue meropenem. 2.Septic shock, now off Levophed. Continue to monitor blood pressure. 3.Catheter associated urinary tract infection, acute cystitis secondary to extended-spectrum beta-la ctamase producing Escherichia coli. We will continue meropenem. The patient will need 2 weeks of IV antibiotics. We will repeat cultures and if still positive, we will need another 2 weeks. ID consu ltation has been sought. 4.Bacteremia secondary to extended-spectrum beta-lactamase Escherichia coli. 5.Acute kidney injury. Creatinine has not improved. The patient is still making urine, however, no w has anasarca. We will likely need to be started on dialysis, likely secondary to hypotension from shock. Appreciate Dr. Arvizu's input. 6.History of pulmonary embolism. We will hold warfarin as INR is supratherapeutic. 7.Morbid obesity, BMI of 53.8. 8.Severe protein-calorie malnutrition. Albumin is less than 2. We will continue with protein suppl ementation. 9.Congestive heart failure, diastolic dysfunction. Last known EF is 71%. 10.Hyponatremia, improving. 11.Elevated troponin level secondary to demand mismatch and sepsis. No active chest pain. 12.Status post mechanical fall. 13.Fractured of third and fourth metacarpals on the left foot, impacted fracture, no dislocation. W e will continue with nonweightbearing at this time. 14.Chronic back pain, midline, without sciatica. Continue narcotics. The patient is dependent. 15.Gastroesophageal reflux disease without esophagitis. We will continue PPI. 16.Multiple abdominal wall hernias, non reducible. 17.Deep vein thrombosis prophylaxis. We will hold Coumadin today due to supratherapeutic INR. No a ctive bleeding. We will hold off on vitamin K and monitor. /MEGHANA Voice ID: [id number] Report ID: [id number]
--- NOTE | 2019-01-12 17:16 | CON ---
History Of Present Illness: This is a 78-year-old male coming in with urosepsis and bacteremia and r enal failure. The patient has significant history of morbid obesity, hypertension, coronary artery d isease, pulmonary embolism, deep venous thrombosis, chronic atrial fibrillation on anticoagulation th erapy, lymphedema. The patient developed fevers and chills and was brought into the emergency room. Past Medical History: CHF, hypertension, lymphedema, chronic indwelling urinary catheter, morbid obe sity, spinal stenosis, DVT, pulmonary embolism in 1984 and 1994, chronic anticoagulation therapy, LUIS E D, iron deficiency anemia, large left-sided abdominal wall hernia, moderate size right-sided abdomina l wall hernia, cholecystectomy, left eye surgery, IVC Green filter, stomach stapling, left knee surge ry, bilateral shoulder repair. Family History: Noncontributory. Social History: Nonsmoker, nondrinker. Family History: Noncontributory. Medications: Meropenem. Allergies: PAROXETINE, PLAVIX. Review of Systems: A 10-point review was performed. Physical Examination: General: This is a 78-year-old male, lying in bed, in mild distress secondary to shortness of breath . Vital Signs: Temperature 98, pulse 120, respirations 18, blood pressure 111/79. HEENT: Unremarkable. Neck: Supple. Lungs: Basal crackles. Heart: S1, S2. Irregularly irregular. Abdomen: Soft. Bowel sounds present. Herniated area noted in the abdominal wall and pannus. Extremities: Also noted 4+ edema in lower extremity, nonpitting. Right upper extremity 3+ edema. L eft upper extremity 1+ edema. Laboratory Data: Shows WBC 12.9 down from 32.9, hemoglobin 11, platelets are 104. Chemistry shows s odium 132, potassium 4.9, chloride 102, bicarb 20, BUN 71, creatinine 5.3, glucose is 175, calcium 6. 3. Liver enzymes within normal limit. Albumin is 1.8. Blood cultures growing E. coli ESBL in urine and in blood, sensitive to meropenem. Assessment And Plan: Urosepsis and bacteremia secondary to Escherichia coli extended-spectrum beta-l actamases. Continue meropenem. Lymphedema, leukocytosis. Consider transferring the patient to long- term acute care for IV antibiotic and further management of sepsis. We will follow the patient as ne eded. Thank you Dr. Park for consult. NF/MODL Voice ID: [id number] Report ID: [id number]
[2019-01-12] MEDS: ALBUMIN HUMAN 25% 200 ML IV SCH (18:10)
--- NOTE | 2019-01-12 20:52 | P.PN ---
Date of Service: 01/12/19 Vital Signs Temp Pulse Resp BP Pulse Ox 97.6 F 125 H 14 110/86 98 01/12/19 16:00 01/12/19 17:17 01/12/19 17:00 01/12/19 17:17 01/12/19 17:00 Medications Acetaminophen (Tylenol -Tablet) 650 mg PO Q6H PRN PRN Reason: Pain scale 2-4 (Mild) Stop: 02/09/19 16:20 Last Admin: 01/10/19 16:42 Dose: 650 mg Calcitriol (Rocaltrol) 0.5 mcg PO DAILY REPLACED BY [facility] Stop: 02/10/19 21:01 Last Admin: 01/12/19 09:33 Dose: 0.5 mcg Cholecalciferol (Vitamin D 5,000 Iu Cap) 5,000 unit PO DAILY REPLACED BY [facility] Stop: 02/11/19 09:01 Last Admin: 01/12/19 09:31 Dose: 5,000 unit Diltiazem HCl (Cardizem Tab) 30 mg PO Q6HR REPLACED BY [facility] Stop: 02/10/19 21:01 Last Admin: 01/12/19 17:17 Dose: 30 mg Enteral Nutritional Formula (Glucerna Shake) 237 ml PO BID REPLACED BY [facility] Stop: 02/09/19 21:01 Last Admin: 01/12/19 09:35 Dose: 237 ml Hydromorphone HCl (Dilaudid) 2 mg PO Q8HR REPLACED BY [facility] Stop: 02/10/19 17:01 Last Admin: 01/12/19 17:16 Dose: 2 mg Norepinephrine Bitartrate 8 mg (/ Dextrose) 508 mls @ 0 mls/hr IV PRN PRN; Protocol PRN Reason: Hemodynamic Parameters Stop: 02/09/19 13:27 Last Admin: 01/11/19 08:18 Dose: 508 mls Meropenem 500 mg/ Sodium (Chloride) 100 mls @ 100 mls/hr IV Q12HR REPLACED BY [facility] Stop: 02/10/19 09:01 Last Admin: 01/12/19 20:41 Dose: 100 mls Albumin Human (Albumin 25%) 200 mls @ 100 mls/hr IV Q8H REPLACED BY [facility] Stop: 01/13/19 11:59 Last Admin: 01/12/19 18:10 Dose: 200 mls Lactobacillus Acidoph/Bulgaricus (Lactinex) 1 tab PO DAILY [facility]PLACED BY [facility] Stop: 02/10/19 09:01 Last Admin: 01/12/19 09:00 Dose: 1 tab Loratadine (Claritin) 10 mg PO DAILYPRN PRN PRN Reason: ALLERGIES Stop: 02/09/19 10:30 Magnesium Oxide (Mag 0x Tab) 400 mg PO BID REPLACED BY [facility] Stop: 02/10/19 21:01 Last Admin: 01/12/19 20:31 Dose: 400 mg Ondansetron HCl (Zofran) 4 mg IV Q6H PRN PRN Reason: NAUSEA / VOMITING Stop: 02/10/19 05:52 Last Admin: 01/11/19 06:05 Dose: 4 mg Pantoprazole Sodium (Protonix Tab) 40 mg PO DAILY [facility]PL[facility]ED [facility] Stop: 02/10/19 09:01 Last Admin: 01/12/19 09:31 Dose: 40 mg Sertraline HCl (Zoloft) 50 mg PO DAILY REPLACED BY [facility] Stop: 02/10/19 09:01 Last Admin: 01/12/19 09:31 Dose: 50 mg Sodium Bicarbonate (Sodium Bicarb 325 Mg) 650 mg PO BIDL REPLACED BY [facility] Stop: 02/11/19 09:01 Last Admin: 01/12/19 17:17 Dose: 650 mg Warfarin Sodium (Coumadin) 2.5 mg PO Q48H REPLACED BY [facility] Stop: 02/10/19 17:01 Last Admin: 01/11/19 17:20 Dose: 2.5 mg Warfarin Sodium (Coumadin) 5 mg PO Q48H REPLACED BY [facility] Stop: 02/09/19 17:01 Last Admin: 01/10/19 16:42 Dose: 5 mg Microbiology Results 01/09/19 18:07 Blood - Blood Aerobic Blood Culture - Final Escherichia Coli Esbl 01/09/19 18:07 Blood - Blood Gram Stain - Final 01/09/19 18:07 Blood - Blood Anaerobic Blood Culture - Final 01/09/19 17:55 Blood - Blood Aerobic Blood Culture - Final Escherichia Coli Esbl 01/09/19 17:55 Blood - Blood Gram Stain - Final 01/09/19 17:55 Blood - Blood Anaerobic Blood Culture - Final 01/09/19 18:27 Clean Catch Urine [place] Count - Final >100,000 CFU/ML. 01/09/19 18:27 Clean Catch Urine - Final Escherichia Coli Esbl Assessment/ Plan: Nephrology. CPS stable without CP or SOB. +FINK Depressed. Anorexia. No acute events overnight. Vitals, medications, blood work and imaging reviewed in the chart. General: Alert, In no apparent distress, Cooperative HEENT: Atraumatic, Mucous membr. moist/pink Neck: Supple Respiratory: Diminished Cardiovascular: Regular rate/rhythm, Edema Gastrointestinal: Hypoactive, Tenderness Musculoskeletal: No clubbing, No contractures Integumentary: No cyanosis, Skin lesion, Venous stasis ulcer Neurological: Normal speech Hannah. Laboratory Data (last 24 hrs) 01/09/19 18:07: PT 31.6 H, INR 2.79 01/09/19 18:07: WBC 32.9 H*, Hgb 13.2 L, Hct 40.7, Plt Count 164 01/09/19 18:07: Sodium 131 L, Potassium 5.4 H, BUN 42 H, Creatinine 3.81 H, Glucose 179 H, Total Bilirubin 0.6, AST 35, ALT 33, Alkaline Phosphatase 52, Lipase 57 L Greater than 30 minutes patient care. Imagings Data: EXAM DESCRIPTION: CT - Chest Abd Pelvis Wo Con - 01/09/2019 6:57 pm CLINICAL HISTORY: Chest and abdomen pain. ABDOMINAL DISTENTION COMPARISON: CTANGIO CHEST FOR PE dated 06/25/2014 TECHNIQUE: A limited noncontrast study was performed. All CT scans are performed using dose optimization technique as appropriate and may include automated exposure control or mA/KV adjustment according to patient size. FINDINGS: Mild linear subsegmental atelectasis is present in both lung bases.No pleural or pericardial effusion.No intrathoracic adenopathy.Postsurgical changes are seen about the stomach with distention of the esophagus Limited noncontrast assessment of the liver, spleen, adrenal glands and kidneys show no acute abnormality. Pancreatic atrophy is seen. Due to patient's large pannus, significant amount of the bowel is not included on this study. Within the limitations of this, no acute bowel finding. No free air or bowel obstruction. Urinary bladder is decompressed by means of Hannah catheter. Moderate fat containing right inguinal hernia. No pathologic lymphadenopathy in the abdomen or pelvis. No free fluid or hematoma. Moderate lumbar degenerative changes. IMPRESSION: No acute finding is demonstrated within the above detailed limitations. Conclusions/Impression: A/ KAYLAH likely ATN vs Prerenal azotemia. CKD III with proteinuria. Hyponatremia. Hyperkalemia. Acidosis. DM II with CKD. Diastolic CHF, chronic. Chronic Afib. Hypocalcemia. Moderate protein malnutrition. Hypoalbuminemia. Morbid Obesity with chronic lymphedema. Sepsis/ Shock. Acute ESBL E.coli Cystitis. P/ Continue current POC and Medications. Discontinue IVF. Give IV Albumin. Pressor support as ordered. Broad spectrum abx. Replete lytes as ordered. Titrate Diltiazem as needed. Free water restriction due to worsening hyponatremia. No NSAIDs. AM labs. Daily weight. Case discussed with Dr. Park.
[2019-01-13] MEDS: DILTIAZEM HCL 60 MG TAB PO SCH ×4 (00:49→17:47)
[2019-01-13] MEDS: HYDROMORPHONE ORAL 2 MG TAB PO SCH ×3 (00:51→17:47)
[2019-01-13] MEDS: ALBUMIN HUMAN 25% 200 ML IV SCH ×2 (02:23→09:25)
[2019-01-13 06:11] LABS: Absolute Lymphocytes (CBC) 0.4 K/uL (0.7-4.9); Absolute Monocytes 0.7 K/uL (0.1-1.3); Absolute Neutrophil 7.8 K/uL (1.8-8.0); Basophils % 0.2 % (0-1.3); Eosinophils % 1.8 % (0-4.4); Hematocrit 33.2 % (39.6-49.0); Lymphocytes % 4.3 % (15.3-44.8); MPV 8.8 fL (7.6-11.3); RBC Red Blood Cell Count 3.43 M/uL (4.33-5.43)
[2019-01-13 06:20] LABS: Protime INR 8.12
[2019-01-13 07:03] LABS: Albumin 2.9 g/dL (3.4-5.0); Bilirubin Total 0.7 mg/dL (0.2-1.0); Protein, Total 6.8 g/dL (6.4-8.2)
[2019-01-13 07:09] LABS: Potassium 5.7 mmol/L (3.5-5.1)
[2019-01-13] MEDS: GLUCERNA SHAKE 237 ML CAN PO SCH ×3 (07:24→20:27)
[2019-01-13 07:34] LABS: Blood Morphology Comment NOT SEEN (NOT SEEN); Platelet Estimate ADEQ
[2019-01-13] MEDS ORDERED: FUROSEMIDE 40 MG/4 ML VIAL IV ONE ×3 (08:16→21:46)
[2019-01-13] MEDS ORDERED: SOD POLYSTYREN SUL 15 GM/60 ML UCUP PO ONE (08:18)
[2019-01-13] MEDS: CALCITROL 0.25 MCG CAP PO SCH (08:57)
[2019-01-13] MEDS: SODIUM BICARB 325 MG TAB PO SCH ×2 (08:58→17:47)
[2019-01-13] MEDS: Meropenem 500 MG in NA CHLORIDE 0.9% 100 ML IV SCH ×2 (08:58→20:27)
[2019-01-13] MEDS: PANTOPRAZOLE 40MG TABLET PO SCH (08:58)
[2019-01-13] MEDS: LACTOBACILLUS/ACIDOPHILUS TAB PO SCH (08:59)
[2019-01-13] MEDS: VITAMIN D 5,000 UNIT CAP PO SCH (08:59)
[2019-01-13] MEDS: SERTRALINE HCL 50 MG TAB PO SCH (08:59)
[2019-01-13] MEDS: MAGNESIUM OXIDE 400 MG TAB PO SCH ×2 (08:59→20:27)
--- NOTE | 2019-01-13 10:39 | P.PN ---
Date of Service: 01/13/19 Vital Signs Temp Pulse Resp BP Pulse Ox 96.9 F 112 H 16 102/75 99 01/13/19 09:25 01/13/19 09:25 01/13/19 09:25 01/13/19 09:25 01/13/19 09:25 Medications Acetaminophen (Tylenol -Tablet) 650 mg PO Q6H PRN PRN Reason: Pain scale 2-4 (Mild) Stop: 02/09/19 16:20 Last Admin: 01/10/19 16:42 Dose: 650 mg Calcitriol (Rocaltrol) 0.5 mcg PO DAILY [facility] Stop: 02/10/19 21:01 Last Admin: 01/13/19 08:57 Dose: 0.5 mcg Cholecalciferol (Vitamin D 5,000 Iu Cap) 5,000 unit PO DAILY [facility] Stop: 02/11/19 09:01 Last Admin: 01/13/19 08:59 Dose: 5,000 unit Diltiazem HCl (Cardizem Tab) 30 mg PO Q6HR [facility] Stop: 02/10/19 21:01 Last Admin: 01/13/19 06:24 Dose: 30 mg Enteral Nutritional Formula (Glucerna Shake) 237 ml PO BID [facility] Stop: 02/09/19 21:01 Last Admin: 01/13/19 09:03 Dose: 237 ml Furosemide (Lasix) 80 mg IV 1X ONE Stop: 01/13/19 13:01 Hydromorphone HCl (Dilaudid) 2 mg PO Q8HR [facility] Stop: 02/10/19 17:01 Last Admin: 01/13/19 08:59 Dose: 2 mg Norepinephrine Bitartrate 8 mg (/ Dextrose) 508 mls @ 0 mls/hr IV PRN PRN; Protocol PRN Reason: Hemodynamic Parameters Stop: 02/09/19 13:27 Last Admin: 01/11/19 08:18 Dose: 508 mls Meropenem 500 mg/ Sodium (Chloride) 100 mls @ 100 mls/hr IV Q12HR [facility] Stop: 02/10/19 09:01 Last Admin: 01/13/19 08:58 Dose: 100 mls Albumin Human (Albumin 25%) 200 mls @ 100 mls/hr IV Q8H [facility] Stop: 01/13/19 11:59 Last Admin: 01/13/19 09:25 Dose: 200 mls Lactobacillus Acidoph/Bulgaricus (Lactinex) 1 tab PO DAILY [facility] Stop: 02/10/19 09:01 Last Admin: 01/13/19 08:59 Dose: 1 tab Loratadine (Claritin) 10 mg PO DAILYPRN PRN PRN Reason: ALLERGIES Stop: 02/09/19 10:30 Magnesium Oxide (Mag 0x Tab) 400 mg PO BID [facility] Stop: 02/10/19 21:01 Last Admin: 01/13/19 08:59 Dose: 400 mg Ondansetron HCl (Zofran) 4 mg IV Q6H PRN PRN Reason: NAUSEA / VOMITING Stop: 02/10/19 05:52 Last Admin: 01/11/19 06:05 Dose: 4 mg Pantoprazole Sodium (Protonix Tab) 40 mg PO DAILY [facility] Stop: 02/10/19 09:01 Last Admin: 01/13/19 08:58 Dose: 40 mg Sertraline HCl (Zoloft) 50 mg PO DAILY [facility] Stop: 02/10/19 09:01 Last Admin: 01/13/19 08:59 Dose: 50 mg Sodium Bicarbonate (Sodium Bicarb 325 Mg) 650 mg PO BIDL [facility] Stop: 02/11/19 09:01 Last Admin: 01/13/19 08:58 Dose: 650 mg Warfarin Sodium (Coumadin) 2.5 mg PO Q48H [facility] Stop: 02/10/19 17:01 Last Admin: 01/11/19 17:20 Dose: 2.5 mg Warfarin Sodium (Coumadin) 5 mg PO Q48H [facility] Stop: 02/09/19 17:01 Last Admin: 01/10/19 16:42 Dose: 5 mg Microbiology Results 01/09/19 18:07 Blood - Blood Aerobic Blood Culture - Final Escherichia Coli Esbl 01/09/19 18:07 Blood - Blood Gram Stain - Final 01/09/19 18:07 Blood - Blood Anaerobic Blood Culture - Final 01/09/19 17:55 Blood - Blood Aerobic Blood Culture - Final Escherichia Coli Esbl 01/09/19 17:55 Blood - Blood Gram Stain - Final 01/09/19 17:55 Blood - Blood Anaerobic Blood Culture - Final 01/09/19 18:27 Clean Catch Urine Carrier Count - Final >100,000 CFU/ML. 01/09/19 18:27 Clean Catch Urine - Final Escherichia Coli Esbl Assessment/ Plan: Nephrology. CPS stable without CP. +Dyspnea Depressed. Anorexia. Advised the patient that he may need dialysis, and he is in agreement. No acute events overnight. Vitals, medications, blood work and imaging reviewed in the chart. General: Alert, In no apparent distress, Cooperative HEENT: Atraumatic, Mucous membr. moist/pink Neck: Supple Respiratory: Diminished Cardiovascular: Regular rate/rhythm, Edema Gastrointestinal: Hypoactive, Tenderness Musculoskeletal: No clubbing, No contractures Integumentary: No cyanosis, Skin lesion, Venous stasis ulcer Neurological: Normal speech Hannah. Laboratory Data (last 24 hrs) 01/09/19 18:07: PT 31.6 H, INR 2.79 01/09/19 18:07: WBC 32.9 H*, Hgb 13.2 L, Hct 40.7, Plt Count 164 01/09/19 18:07: Sodium 131 L, Potassium 5.4 H, BUN 42 H, Creatinine 3.81 H, Glucose 179 H, Total Bilirubin 0.6, AST 35, ALT 33, Alkaline Phosphatase 52, Lipase 57 L Greater than 30 minutes patient care. Imagings Data: EXAM DESCRIPTION: CT - Chest Abd Pelvis Wo Con - 01/09/2019 6:57 pm CLINICAL HISTORY: Chest and abdomen pain. ABDOMINAL DISTENTION COMPARISON: CTANGIO CHEST FOR PE dated 06/25/2014 TECHNIQUE: A limited noncontrast study was performed. All CT scans are performed using dose optimization technique as appropriate and may include automated exposure control or mA/KV adjustment according to patient size. FINDINGS: Mild linear subsegmental atelectasis is present in both lung bases.No pleural or pericardial effusion.No intrathoracic adenopathy.Postsurgical changes are seen about the stomach with distention of the esophagus Limited noncontrast assessment of the liver, spleen, adrenal glands and kidneys show no acute abnormality. Pancreatic atrophy is seen. Due to patient's large pannus, significant amount of the bowel is not included on this study. Within the limitations of this, no acute bowel finding. No free air or bowel obstruction. Urinary bladder is decompressed by means of Hannah catheter. Moderate fat containing right inguinal hernia. No pathologic lymphadenopathy in the abdomen or pelvis. No free fluid or hematoma. Moderate lumbar degenerative changes. IMPRESSION: No acute finding is demonstrated within the above detailed limitations. Conclusions/Impression: A/ KAYLAH likely ATN vs Prerenal azotemia. CKD III with proteinuria. Hyponatremia. Hyperkalemia. Acidosis. DM II with CKD. Diastolic CHF, chronic. Chronic Afib. Hypocalcemia. Moderate protein malnutrition. Hypoalbuminemia. Morbid Obesity with chronic lymphedema. Sepsis/ Shock. Acute ESBL E.coli Cystitis. P/ Continue current POC and Medications. Give Lasix today. Pressor support as ordered. Abx for ESBL sepsis/ cystitis. Kayexalate for hyperkalemia. Replete lytes as ordered. Titrate Diltiazem as needed. Free water restriction due to worsening hyponatremia. Change to a renal diet. No NSAIDs. AM labs. Daily weight. Case discussed with Dr. Park and Dr. Estrada. Possible transfer to [facility] soon.
--- NOTE | 2019-01-13 12:57 | PN ---
Subjective: The patient is lying in bed, continuing to have a challenge with kidney function, going to be on dialysis as per renal team. The patient denies any headache, nausea, vomiting, chest pain, abdominal pain, constipation, or diarrhea. Continues to have some shortness of breath, off with pres sors. Objective: Vital Signs: Temperature 96.9, pulse 100, respirations 16, and blood pressure 100/83. Lungs: Basal crackles. Heart: S1 and S2, irregularly irregular. Abdomen: Soft. Bowel sounds present. Hernia is noted. Extremities: 4+ nonpitting edema. Upper extremity edema has improved. Laboratory Data: WBC 9000, down from 12.4 yesterday; 11.2 hemoglobin; and platelets are 105. Chemis try shows sodium 128, potassium 5.7, chloride 96, bicarb 22, BUN 87, creatinine 6.4, and glucose is 2 02. Assessment And Plan: Escherichia coli extended spectrum beta lactamase in the blood and urine. To c ontinue antibiotic and supportive care. We will follow the patient as needed. NF/MODL Voice ID: [id number] Report ID: [id number]
[2019-01-13] MEDS ORDERED: VITAMIN K (ADULT) 10 MG/ML SQ SCH (17:00)
[2019-01-13] MEDS: LEVALBUTEROL 0.63 MG/3 ML NEB NEB PRN (18:40)
[2019-01-13] MEDS ORDERED: ALBUMIN HUMAN 25% 50 ML IV ONE (18:55)
[2019-01-13] MEDS: ACETAMINOPHEN 325 MG TABLET PO PRN (20:27)
--- NOTE | 2019-01-13 21:46 | PN ---
Date of Progress Note: 01/13/2019 The patient was seen and examined. Chart reviewed and case discussed with RN and Dr. Arvizu and Dr. Estrada. The patient's daughter at the bedside. Treatment plan explained. All questions answered. The patient was still having significant amount of swelling. Medication was reviewed. Physical Examination: Vital Signs: Temperature 96.9, heart rate 112, blood pressure 102/75, respirations 15, O2 is 99% on 3 L via nasal cannula. General: Awake, alert, oriented x3. Morbidly obese, ill-appearing male. CV: S1, S2. Irregularly irregular. Peripheral pulses present, diminished. Respiratory: Diminished breath sounds bilaterally. Gastrointestinal: Abdomen is soft, mildly distended. Positive bowel sounds. Has large hernias that are not reducible. Extremities: No clubbing or cyanosis. The patient has diffuse edema of all 4 extremities. Neurologic: Nonfocal. Laboratory Data: Sodium 128, potassium 5.7, chloride 96, CO2 22, BUN 87, creatinine 6.41, glucose 20 2, calcium 7.7, albumin 2.9. WBC 9.1, H and H 11.2 and 33.2, platelets 105, neutrophils 85%. Urine culture and blood cultures growing out Escherichia coli. Assessment And Plan: A 78-year-old male with: 1.Sepsis with shock secondary to urinary tract infection and bacteremia, improving. White count has normalized, now off pressors. We will continue meropenem. 2.Catheter-associated urinary tract infection, acute cystitis secondary to extended-spectrum beta-la ctamase producing Escherichia coli. We will finish off 2 weeks of IV meropenem and then repeat urine cultures; if positive, will need another 2 weeks. 3.Extended-spectrum beta-lactamase producing Escherichia coli. 4.Acute kidney injury. Creatinine is trending up, likely due to acute tubular necrosis secondary to sepsis and hypotension. Still making urine, however, does have electrolyte abnormalities. Will lik isabella need to be started on dialysis due to anasarca as well. 5.Anasarca. 6.History of pulmonary embolism. INR is 8.12 today. We will give vitamin K p.o. and monitor INR. No active bleeding at this time. 7.Morbid obesity. BMI 53.8. 8.Severe protein-calorie malnutrition. Albumin improving. We will continue supplementation. 9.Congestive heart failure, diastolic dysfunction, EF is 71%, acute on chronic. 10.Hyponatremia, worsening. 11.Hyperkalemia. We will give Kayexalate and monitor. 12.Elevated troponin level secondary to demand mismatch and sepsis. No active chest pain. 13.Status post mechanical fall. 14.Fracture of third and fourth metacarpals of the left foot, impacted fracture, no dislocation. Wi ll need fracture boot. 15.Chronic back pain, midline, without sciatica. Continue narcotics as he is dependent. 16.Gastroesophageal reflux disease without esophagitis. Continue PPI. 17.Multiple abdominal wall hernias, nonreducible. The patient states that he has been evaluated by Surgery in the past and is nonoperable. 18.Deep vein thrombosis prophylaxis. INR is supratherapeutic. We will hold Coumadin due to possibi lity of catheter placement soon. We will give vitamin K to bring down INR. /MEGHANA Voice ID: [id number] Report ID: [id number]
[2019-01-13] MEDS ORDERED: VITAMIN K (ADULT) 10 MG/ML ONE (23:02)
[2019-01-13] MEDS ORDERED: VITAMIN K (ADULT) 10 MG/ML IVP SCH (23:04)
[2019-01-13 23:10] LABS: Hematocrit 24.1 % (39.6-49.0)
[2019-01-13] MEDS ORDERED: RSI MEDICATION KIT IV ONE (23:11)
[2019-01-13] MEDS ORDERED: PHENYLEPHRINE 0.5% NOSE 15ML NAS ONE (23:13)
[2019-01-13 23:27] LABS: Protime INR 7.25
--- NOTE | 2019-01-13 23:27 | P.PN ---
Date of Service: 01/13/19 I was called because the patient suddenly start with severe epistaxis. His O2 sat decreased to lower 70's, subsequently it was decided to intubate the patient. Dr Longo from ER, performed this difficult intubation. Subsequently, the patient was packed and the bleeding stop. Will transfuse at least 2 Units of FFP, 2 UNITS of PRBC's stat, He also received 10 mg of Vitmin K IV. Will continue with ventilator protocol, will consult Dr Lazcano for evaluation. After successful intubation, the patient remain hemodynamically stable in ventilator support. Critical care time spent more than 60 minutes.
[2019-01-13] MEDS ORDERED: PROPOFOL 1,000 MG/100 ML VIAL IV ONE (23:30)
[2019-01-13] MEDS ORDERED: NA CHLORIDE 0.9% 1,000 ML ONE (23:45)
[2019-01-13] MEDS ORDERED: NA CHLORIDE 0.9% 1,000 ML IV ONE (23:45)
[2019-01-13] MEDS: PROPOFOL 1,000 MG/100 ML VIAL IV PRN (23:50)
[2019-01-13 23:51] LABS: Blood Gas Oxyhemoglobin 97.2 % (94-97); Blood O2 Saturation 99.3 % (92-98.5)
[2019-01-13] MEDS ORDERED: MIDAZOLAM HCL 2 MG/2 ML INJ IV PRN (23:56)
[2019-01-13] MEDS ORDERED: HALOPERIDOL LACT 5 MG/ML INJ IV PRN (23:56)
[2019-01-13] MEDS ORDERED: NA CHLORIDE 0.9% 250 ML IV PRN (23:56)
[2019-01-14] MEDS: NA CHLORIDE 0.9% 250 ML IV SCH ×2 (00:43→06:04)
[2019-01-14] MEDS ORDERED: PROPOFOL 1,000 MG/100 ML VIAL IV PRN (00:58)
[2019-01-14] MEDS: HYDROMORPHONE ORAL 2 MG TAB PO SCH ×2 (01:00→10:01)
[2019-01-14] MEDS: PROPOFOL 1,000 MG/100 ML VIAL IV PRN ×4 (02:13→20:45)
[2019-01-14] MEDS: DILTIAZEM HCL 60 MG TAB PO SCH ×5 (06:00→23:29)
[2019-01-14 06:30] LABS: Protime INR 2.37
[2019-01-14 06:43] LABS: Albumin 2.7 g/dL (3.4-5.0); Bilirubin Total 0.9 mg/dL (0.2-1.0); Potassium 5.2 mmol/L (3.5-5.1); Protein, Total 6.2 g/dL (6.4-8.2)
[2019-01-14] MEDS: PANTOPRAZOLE 40MG TABLET PO SCH (09:00)
[2019-01-14] MEDS: MAGNESIUM OXIDE 400 MG TAB PO SCH (09:00)
[2019-01-14] MEDS: CALCITROL 0.25 MCG CAP PO SCH (09:00)
[2019-01-14] MEDS: VITAMIN D 5,000 UNIT CAP PO SCH (09:00)
[2019-01-14] MEDS: GLUCERNA SHAKE 237 ML CAN PO SCH (09:00)
[2019-01-14] MEDS: Meropenem 500 MG in NA CHLORIDE 0.9% 100 ML IV SCH ×2 (09:59→20:45)
[2019-01-14] MEDS: SODIUM BICARB 325 MG TAB PO SCH ×2 (10:00→17:58)
[2019-01-14] MEDS: LACTOBACILLUS/ACIDOPHILUS TAB PO SCH (10:00)
[2019-01-14] MEDS: SERTRALINE HCL 50 MG TAB PO SCH (10:00)
--- NOTE | 2019-01-14 10:51 | RAD REPORT ---
EXAM DESCRIPTION: RAD - Chest Single View - 01/14/2019 12:18 am CLINICAL HISTORY: S/P intubation Chest pain. COMPARISON: Chest Single View dated 01/10/2019; Chest Single View dated 01/09/2019; Chest Single View dated 04/30/2018; Chest Single View dated 04/28/2018 FINDINGS: Portable technique limits examination quality. ET tube tip is above the ariel. Left-sided PICC line has tip in the SVC. Enteric tube descends into the upper abdomen.
--- NOTE | 2019-01-14 11:48 | PN ---
Date of Progress Note: 01/14/2019 Patient seen and examined. Chart reviewed and case discussed with RN and Dr. Anderson. The patient developed severe epistaxis last night and became hypoxic. Had to be intubated and had a difficult int ubation. Please see Dr. Henry's progress note from last night for further details. Unfortunately , Dr. Lazcano is unavailable for this month. The patient currently has nostril packets in place to h elp stop the bleeding. Medications: List reviewed. Physical Examination: Vital Signs: Temperature 97.1, heart rate 85, blood pressure 99/66, respirations 18, O2 100% on 50% FiO2. General: Intubated, sedated. Does open eyes to sternal rub. Ill-appearing, morbidly obese, eld erly male. CV: S1, S2, irregularly irregular. Peripheral pulses weak bilaterally. Respiratory: Dimi nished breath sounds. No wheezing or stridor. Gastrointestinal: Abdomen is soft, mildly distended. Multiple hernias present which are non reducible. Bowel sounds h eard. Extremities: No clubbing or cyanosis. The patient has diffuse edema all 4 extremities. Skin: The patient has ecchymosis of the left foot dorsal aspect. Neuro> intubated, sedated. Does open eye s to sternal rub. Moves all 4 extremities. Laboratory Data: Sodium 130, potassium 5.2, chloride 98, CO2 24, BUN 101, creatinine 6.75, glucose 1 94, calcium 7.5, albumin 2.7. CBC is pending. INR is 2.37. Cultures show E coli, ESBL producing fro m blood and urine. Chest x-ray, no official report but ET tube seems to be in place. Some opacities on the right lower lobe. Assessment And Plan: A 78-year-old male with: 1.Acute respiratory failure with hypoxia. The patient is now intubated, sedated. 2.Sepsis with shock secondary to urinary tract infection and bacteremia, improving. The patient is off pressors. White count normalized. We will continue meropenem. 3.Catheter-associated UTI, acute cystitis secondary to extended-spectrum beta-lactamase Escherichia coli. Continue IV meropenem. 4.ESBL producing E coli bacteremia. The patient is on meropenem. 5.Acute kidney injury. Creatinine has worsened now up to 6.75. Will likely need to be started on di alysis. We will discuss further with Nephrology, likely secondary to acute tubular necrosis secondar y to sepsis and hypotension. 6.Severe epistaxis. The patient did have coagulopathy with INR of 8. Had received 5 mg of vitamin K in the afternoon, however, still developed bleeding. Has received another 10 units of vitamin K an d 2 units of FFP. We will continue to monitor. Unfortunately, no ENT is available at this time. 7.Anasarca due to volume overload. The patient will need dialysis sooner rather than later. 8.History of PE. INR now 2.37. Hold anticoagulants for now due to bleed. 9.Morbid obesity, BMI 53.8. 10.Severe protein-calorie malnutrition. Albumin is 2.7. 11.Moderate protein calorie malnutrition. 12.Congestive heart failure, diastolic dysfunction, EF is 71%, acute on chronic. 13.Hyponatremia, improving. 14.Hyperkalemia. We will give Kayexalate and monitor. 15.Elevated troponin level secondary to demand mismatch and sepsis. 16.Atrial fibrillation. The patient is on digoxin, is rate controlled. Was on warfarin, however, no w his warfarin is being held due to bleed. 17.Status post mechanical fall. 18.Fracture of third and fourth metacarpals of the left foot, impacted fracture with no dislocation. 19.Chronic back pain, midline, without sciatica, narcotic dependent. We will adjust dose. 20.Gastroesophageal reflux disease without esophagitis. We will switch over to IV PPI. 21.Multiple abdominal wall hernias, non reducible, nonsurgical candidate. 22.DVT prophylaxis with SCDs. No chemical anticoagulation due to bleed. Plan: Transfer to [facility] once more stable. Overall prognosis is guarded. SA/MODL Voice ID: [id number] Report ID: [id number]
[2019-01-14] MEDS: FENTANYL CITR 100 MCG/2 ML IV PRN ×2 (14:05→20:44)
[2019-01-14 14:54] LABS: Absolute Lymphocytes (CBC) 0.7 K/uL (0.7-4.9); Absolute Monocytes 0.3 K/uL (0.1-1.3); Absolute Neutrophil 6.5 K/uL (1.8-8.0); Basophils % 0.3 % (0-1.3); Eosinophils % 3.7 % (0-4.4); Hematocrit 33.7 % (39.6-49.0); Lymphocytes % 8.7 % (15.3-44.8); MPV 9.3 fL (7.6-11.3); Monocytes % 3.8 % (3.3-12.3); RBC Red Blood Cell Count 3.59 M/uL (4.33-5.43)
[2019-01-14] MEDS ORDERED: SUCCINYLCHOLINE 20 MG/ML (10 ML) IV ONE (15:40)
[2019-01-14] MEDS ORDERED: ETOMIDATE 20 MG/10 ML VIAL IV ONE (15:40)
--- NOTE | 2019-01-14 18:56 | PN ---
Date of Progress Note: 01/14/2019 Subjective: The patient was intubated overnight secondary to severe epistaxis in the setting of Coum hayley coagulopathy. The patient's bleeding has normalized. The patient was intubated for airway cont rol. The patient is on minimal vent settings. The case was discussed with the nurse at the bedside. The patient is not having any loose stools. The patient's medications were reviewed. I do not see any steroid use or excessive use of diuretics at this time. The patient was awake and feels well, and it appears that he is comfortable. He is not in any distre ss. Objective: Vital Signs: Blood pressure is 140/76, pulse 78, afebrile. Input and Output: The patient had 226, 58 in, and 558 out. Thus far today, the patient has had 1850 of urinary output. General: Morbidly obese, intubated, awake. Heart: Distant heart sounds. Regular rate and rhythm. No murmurs, rubs, gallops. Lungs: Difficult exam, but grossly clear. Abdomen: Soft, nontender with positive bowel sounds. Extremities: With 4+ edema bilaterally with chronic venous stasis changes. For laboratory data, CBC is pending for today, but H and H had dropped from 11.2 to 8.2 yesterday. S jessica chemistry; sodium 130, potassium 5.2, chloride 98, CO2 24, BUN 101, creatinine 6.75, and glucose 194, calcium 7.5. Last UA on January 12 had shown a urine sodium of 19 and microalbumin creatini ne ratio of 319. Microbiology data had shown E. coli with ESBL in the urine. Medications: The patient's medications were reviewed. The patient did receive several doses of Lasi x yesterday. He is receiving meropenem as well. The patient did receive 1 dose of Kayexalate yester day. Laboratory Data: CBC; hemoglobin 8.2, hematocrit 24.1. Serum chemistry; sodium 130, potassium 5.2, chloride 98, CO2 24, BUN 101, creatinine 6.75, glucose 194, calcium 7.5, albumin 2.7. Impression: 1.Acute kidney injury worsening. 2.Severe epistaxis requiring intubation for airway protection. 3.Urinary tract infection with extended-spectrum beta-lactamase. 4.Chronic atrial fibrillation. 5.History of pulmonary embolism, on chronic Coumadin. Plan: Renal function continues to show worsening. The patient is having significant increase in uri ne output, which may be a sign of improving ATN. Lab work is yet to reflect that. If the patient la b work tomorrow shows persistent electrolyte abnormalities or worsening azotemia, the patient may req uire temporary dialysis. I discussed this with the patient, who exhibited understanding. It will be readdressed tomorrow. I have asked the nursing staff to inquire as to whether the patient can have a temporary dialysis catheter placed here in this facility tomorrow. The patient is not on any feeds right now, but the patient must be on low-potassium feeds moving forward regardless if it is through IV or orally. Continue pulmonary followup for extubation. Absolutely no NSAIDs can be given and wo uld avoid contrast when possible. The patient does not require any IV fluids at this time as the pat ient's blood pressure is stable, except for possible low-rate maintenance fluids if there are any sig ns of dehydration. We will continue to follow him. /MEGHANA Voice ID: [id number] Report ID: [id number]
[2019-01-15] MEDS: LORazepam 2 MG/ML VIAL IV PRN ×2 (01:02→19:54)
[2019-01-15] MEDS: PROPOFOL 1,000 MG/100 ML VIAL IV PRN ×3 (01:02→18:58)
[2019-01-15] MEDS: FENTANYL CITR 100 MCG/2 ML IV PRN ×3 (04:31→19:13)
[2019-01-15] MEDS: DILTIAZEM HCL 60 MG TAB PO SCH ×4 (05:36→23:32)
[2019-01-15 05:44] LABS: Arterial Blood Carboxyhemoglob 1.4 % (0-1.5); Blood Gas Oxyhemoglobin 95.6 % (94-97)
[2019-01-15 05:47] LABS: Arterial Blood Carboxyhemoglob 1.8 % (0-1.5); Blood Gas Oxyhemoglobin 93.9 % (94-97); Blood O2 Saturation 96.6 % (92-98.5)
[2019-01-15 06:15] LABS: Protime INR 1.39
[2019-01-15 06:31] LABS: Potassium 4.8 mmol/L (3.5-5.1)
[2019-01-15 06:40] LABS: Absolute Lymphocytes (CBC) 0.6 K/uL (0.7-4.9); Absolute Monocytes 0.5 K/uL (0.1-1.3); Absolute Neutrophil 6.3 K/uL (1.8-8.0); Basophils % 0.5 % (0-1.3); Eosinophils % 3.1 % (0-4.4); Hematocrit 33.5 % (39.6-49.0); Lymphocytes % 7.9 % (15.3-44.8); MPV 8.6 fL (7.6-11.3); RBC Red Blood Cell Count 3.59 M/uL (4.33-5.43)
[2019-01-15 08:26] LABS: Platelet Estimate DECR
[2019-01-15 08:27] LABS: Blood Morphology Comment NOT SEEN (NOT SEEN)
[2019-01-15] MEDS: LACTOBACILLUS/ACIDOPHILUS TAB PO SCH (09:00)
[2019-01-15] MEDS: CALCITROL 0.25 MCG CAP PO SCH (09:00)
[2019-01-15] MEDS: SODIUM BICARB 325 MG TAB PO SCH ×2 (09:00→18:23)
[2019-01-15] MEDS: HYDROMORPHONE ORAL 2 MG TAB PO SCH (09:00)
[2019-01-15] MEDS: SERTRALINE HCL 50 MG TAB PO SCH (09:00)
[2019-01-15] MEDS ORDERED: NS 0.9% VIAL 10 ML ONE (09:14)
[2019-01-15] MEDS ORDERED: NA CHLORIDE 0.9% 100 ML IV ONE (09:17)
[2019-01-15] MEDS ORDERED: LIDOCAINE 1% MPF 30 ML VIAL ONE (09:17)
[2019-01-15] MEDS ORDERED: MIDAZOLAM HCL 2 MG/2 ML INJ ONE (09:35)
[2019-01-15] MEDS ORDERED: ONDANSETRON 4 MG/2 ML VIAL ONE (09:35)
[2019-01-15] MEDS ORDERED: FENTANYL CITR 100 MCG/2 ML ONE (09:35)
[2019-01-15] MEDS ORDERED: ETOMIDATE 20 MG/10 ML VIAL IV ONE (09:36)
[2019-01-15] MEDS ORDERED: ROCURONIUM 50 MG/5 ML VIAL IV ONE (09:36)
[2019-01-15] MEDS ORDERED: HEPARIN 5000 UNIT/ML 1 ML VIAL ONE (09:46)
--- NOTE | 2019-01-15 09:56 | RAD REPORT ---
EXAM DESCRIPTION: Karen Single View01/15/2019 6:31 am CLINICAL HISTORY: Shortness breath COMPARISON: January 13 FINDINGS: Endotracheal tube has its tip well above the ariel. Tip of a nasogastric tube is not tristan rly seen but probably lies within stomach. PICC line is present. Tip is not clearly seen secondary to technical factors Bibasilar opacities may represent atelectasis or infiltrate.
--- NOTE | 2019-01-15 10:04 | P.CNS ---
Date of Consult: 01/15/19 Chief Complaint: Respiratory failure History of Present Illness: Patient is 78 years of age. Currently on a ventilator multiple medical problems has a metabolic syndrome admitted with diarrhea lethargy developed severe epistaxis patient is on anticoagulants had to be intubated. Patient is in renal failure currently on propofol unresponsive Allergies paroxetine HCl [From Paxil] Allergy (Intermediate, Verified 11/24/15 09:31) HALLUCINATIONS clopidogrel bisulfate [From Plavix] Allergy (Verified 11/24/15 09:31) Unknown Sulfa (Sulfonamide Antibiotics) Allergy (Verified 07/16/17 03:10) Hives chlorpromazine HCl [From Thorazine] Adverse Reaction (Intermediate, Verified 03:10) HALLUCINATIONS fluoxetine HCl [From Prozac] Adverse Reaction (Intermediate, Verified 07/16/17 03:10) HALLUCINATIONS thorazine Allergy (Uncoded 07/16/17 03:10) Unknown Home Medications: Loratadine [Claritin*] 10 mg PO DAILYPRN PRN 07/16/17 Pantoprazole [Protonix Tab*] 40 mg PO DAILY 07/16/17 Phenazopyrididine [Pyridium*] 200 mg PO TIDP PRN 07/16/17 Sertraline HCl 50 mg PO DAILY 07/16/17 Trazodone [Desyrel*] 100 mg PO BEDTIME 07/16/17 Trimethoprim 100 mg PO DAILY 07/16/17 diphenhydrAMINE HCl [Diphenhydramine HCl] 25 mg PO BEDTIME 07/16/17 Cholecalciferol (Vitamin D3) [Vitamin D3] 50 mcg PO DAILY 04/29/18 Ferrous Sulfate [Ferrous Sulfate*] 65 mg PO DAILY 04/29/18 Mv,Minerals/FA/Lycopene/Ginkgo [One Daily Men's 50+ Tablet] 1 tab PO DAILY 04/29 Simethicone [Gas Relief] 250 mg PO BEDTIME 04/29/18 Warfarin Sodium [Coumadin*] 2.5 mg PO SEECOM 04/29/18 Warfarin Sodium [Coumadin*] 5 mg PO SEECOM 04/29/18 Docusate [Colace Cap*] 100 mg PO DAILY PRN #30 cap 05/03/18 Gabapentin [Neurontin] 600 mg PO QID #120 tablet 05/03/18 Ascorbic Acid [Vitamin C with Raquel Hips] 500 mg PO DAILY 01/09/19 Glucerna Shake [Glucerna*] 237 ml PO BID 01/09/19 Hydromorphone [Dilaudid*] 4 mg PO QID 01/09/19 Lactobacillus Acidophilus [Digestive Probiotic] 1 cap PO DAILY 01/09/19 Metoprolol Tartrate [Lopressor*] 25 mg PO BID 01/09/19 - Past Medical/Surgical History Diabetic: No -: CHF -: HTN -: Lymphedema to the lower extremities -: Chronic indwelling urinary catheter -: Spinal stenosis of the back, chronic back pain -: History of DVT/PE, 1984, 1994 -: 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 -: GERD -: Iron deficiency anemia -: Large left-sided abdominal wall hernia -: Moderate-sized right sided abdominal wall hernia below the pannus. 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 He has no children. He is retired. 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 - Family History Father Medical History: Heart disease, Hypertension, GI disease Mother Medical History: Heart disease - Social History Smoking Status: Never smoker Alcohol use: No CD- Drugs: No Caffeine use: Yes Place of Residence: Home Review of Systems is unable to be obtained Physical Examination Temp Pulse Resp BP Pulse Ox 97 F 116 H 13 126/69 94 01/15/19 04:00 01/15/19 08:00 01/15/19 08:00 01/15/19 08:00 01/15/19 08:00 General: Unresponsive Respiratory: Clear to auscultation bilaterally, Diminished Cardiovascular: Edema (Patient is gross lymphedema) Gastrointestinal: Normal bowel sounds - Problems (1) Respiratory failure Current Visit: Yes Status: Acute Plan: Patient is 78 years of age multiple medical problems morbid obesity admitted with epistaxis is currently on a ventilator scarred end-stage renal disease patient's oxygenation is satisfactory chest x-ray shows a prominent right hilum he has E. coli sepsis blood cultures are also positive E. coli is highly resistant patient is currently on meropenem coagulopathy corrected his TSH was normal vital signs stable Qualifiers: Chronicity: acute
[2019-01-15] MEDS: Meropenem 500 MG in NA CHLORIDE 0.9% 100 ML IV SCH ×2 (10:17→21:21)
--- NOTE | 2019-01-15 11:07 | CON ---
Date of Consultation: 01/15/2019 Addendum: Please note this is an addendum to a consult note I dictated earlier. Essentially, the patient was evaluated for the procedure in the ICU to be transferred to the OR as erin brock is intubated. It was determined the patient weighs 545 pounds and we brought the C-arm to see i f we could use the C-arm while the patient is in the bed and it would not work because the constructi on of the bed plus patient cannot be transferred to the OR table, we do not have bariatric OR table. So after this was decided the patient would be a high risk for intervention over here as other facili ty does not have the equipment needed for this extremely large patient. Therefore, case was discussed with Dr. Hoffman, who agrees and patient will be transferred to a tertiary care where they have thei r proper facility to manage this complicated patient. Dr. Henderson and Dr. Park will be notified as we ll. ELHAM/MEGHANA Voice ID: [id number] Report ID: [id number]
--- NOTE | 2019-01-15 11:36 | PREOPCON ---
Date of Consultation: 01/15/2019 Reason: The patient needs dialysis. History Of Present Illness: The patient is a 78-year-old gentleman, who came in with sepsis and then has developed advancing renal failure requiring dialysis as his azotemia has increased significantly . I was consulted for access for hemodialysis. The patient is awake, but he is intubated. He had e pistasis because he was anticoagulated for history of PE and they wanted to protect his airway and so he has remained intubated. He is awake, however. He understands and he responds appropriately. Cu rrently with no fever or chills. Review of Systems: Otherwise unremarkable. Past Medical History: Morbid obesity, history of PE, hypertension, coronary artery disease, DVT, Grace b, CHF, GERD, currently with sepsis. Past Surgical History: Tarsha filter placement. Allergies: REVIEWED, MULTIPLE, PLAVIX, THORAZINE, PROZAC, SULFA. Physical Examination: Vital Signs: Stable. He is currently afebrile. General: He is intubated. He is awake. Head and Neck: No masses. Chest: Clear. Heart: S1, S2. Abdomen: Soft. Extremities: Neurovascularly intact. Neuro: Nonfocal. Laboratory Data: Reviewed. His BUN is greater than 100, creatinine is greater than 6, almost 7. Assessment: Acute renal failure. Recommendations: Discussed the case in detail with Dr. Henderson as the patient may require dialysis for the foreseeable future and he is a high risk for multiple attempts converting a Gokul t o a Tesio. We will go ahead and place Tesio catheter as his INR is 1.39 and the risk of complication are minimized at this time. The patient understands the risks, benefits, and alternatives, and alexandra baumann /MODL Voice ID: [id number] Report ID: [id number]
--- NOTE | 2019-01-15 12:42 | PN ---
Patient seen and examined, chart reviewed and case discussed with RN, Dr. Willingham, Dr. Henderson, as well a s Dr. Anderson. The patient now more awake and alert. Needs to be transferred as he is unable to ayoub ve a PermCath placed due to bariatric restrictions. Medications: List reviewed. Physical Examination: Vital Signs: Temperature 97, heart rate 116, blood pressure 126/69, respirations 13, O2 94% on ET tu be, 25% FiO2. General: Awake, alert, intubated, very lightly sedated. Following commands. CV: S1, S2. Regularly irregular. Peripheral pulses weak bilaterally. Respiratory: Diminished breath sounds overall. Some crackles heard. Gastrointestinal: Abdomen is soft, mildly distended. Positive bowel sounds. Large hernia is not re ducible. Extremities: No clubbing or cyanosis. The patient has diffuse edema of all 4 extremities. Neurologic: Nonfocal. Intubated. Follows commands. Opens eyes spontaneously. Laboratory Data: Sodium 132, potassium 4.8, chloride 98, CO2 21, BUN 11, creatinine 6.96, glucose 17 3, calcium 7.7. WBC 7.7, H and H 11.5 and 33.5, platelets 121. Blood cultures and urine cultures po sitive for ESBL Escherichia coli. Assessment And Plan: A 78-year-old male with: 1.Acute respiratory failure with hypoxia. The patient is weaning off the ventilator. 2.Sepsis with shock secondary to urinary tract infection and bacteremia, improving now off pressors. 3.Catheter-associated UTI, acute cystitis secondary to extended-spectrum beta-lactamase Escherichia coli. Continue meropenem. 4.Bacteremia secondary to ESBL producing E coli, on Merrem. 5.Acute kidney injury. The patient will need to be started on dialysis. Fortunately, he is making good urine output and electrolytes are stable. Unfortunately, unable to have catheter placed at beds jeffrey as the fluoroscopy C-arm is unable to fit through the bariatric bed. The patient will not fit in the OR bed and surgeon recommends transfer to higher level of care for bariatric OR bed. 6.Acute tubular necrosis. 7.Severe epistaxis. The patient still has rhino rocket in place. INR has been reversed. Will remov e rhino rocket after 48 hours from first initiation. No ENT available at this time. 8.Anasarca due to volume overload. 9.History of pulmonary embolism. Anticoagulants on hold due to bleed. 10.Morbid obesity, BMI 53.8. 11.Severe protein-calorie malnutrition. Albumin is 2.7. 12.Congestive heart failure, diastolic dysfunction, EF 71%, acute on chronic. 13.Hyponatremia, improving. We will continue to monitor. 14.Hyperkalemia, corrected. 15.Elevated troponin level secondary to demand mismatch sepsis. No chest pain. 16.Atrial fibrillation, new onset. Continue digoxin. No anticoagulation for now due to bleed. 17.Status post mechanical fall. 18.Fracture of third and fourth metacarpals of the left foot, impacted fracture with no dislocation. 19.Chronic back pain, midline, without sciatica, narcotic dependent. 20.Gastroesophageal reflux disease without esophagitis, on PPI. 21.Multiple abdominal wall hernias, not reducible. 22.DVT prophylaxis with SCDs. Plan: Transfer to [facility] for dialysis catheter placement due to lack of bariatric equi pment. /MEGHANA Voice ID: [id number] Report ID: [id number]
[2019-01-15] MEDS: NA CHLORIDE 0.9% 1,000 ML IV SCH (14:02)
--- NOTE | 2019-01-15 16:37 | PN ---
Date of Progress Note: 01/15/2019 Subjective: The patient is seen at bedside. No overnight events reported. The decision was made in the morning to initiate dialysis on the patient, however, the patient is logistically difficult to h ave a line placed in the operating room or at the bedside that can be ascertained from the surgical c onsultant's notes. We are initiating transfer for the patient and attempt to find a facility that ayoub s bariatric surgical abilities to be able to place a dialysis line in the patient. Vent settings have remained stable. Urine output has improved. Objective: Vital Signs: Blood pressure is 108/82, pulse 109, temperature 97. Input and output 2948 in, which has been with the blood products from the prior bleed as well as IV fluids, 1850 out. Uri ne output has also improved to 5. General: Intubated, no acute distress. Heart: Irregular rate and rhythm. Not tachycardic. No murmurs, rubs, gallops. Lungs: Transmitted sounds. Laboratory Data: Sodium 132, potassium 4.8, chloride 98, CO2 of 21, BUN 111, creatinine 6.96, glucos e 133, calcium 7.7, serum chemistry. H and H stable with hemoglobin 11.5, hematocrit 33.5. Last ABG showing some mild metabolic acidosis. Impression: 1.Acute kidney injury, worsening. 2.Severe epistaxis secondary to elevated INR, which has improved. 3.Urinary tract infection with extended-spectrum beta-lactamases. 4.Chronic atrial fibrillation. 5.Chronic Coumadin use, on hold. Plan: Renal function continues to worsen in the setting of the patient's bleed, it was a concern for worsening of uremic bleed and platelet dysfunction. The decision has been made to initiate dialysis and thus, the patient will be transferred to higher level of care. It is encouraging that the patie nt's urine output is improving but given the instability the patient would require renal replacement therapy for balance of electrolytes, improvement of acidosis and prevention of uremic consequences. Plan of care has been discussed with the primary team and the ICU staff. The patient has also been started on normal saline at 75 mL an hour as the patient has not had any IV fluids over the past 24 hours and has been placed on 1 L. We will continue to follow closely. SE/MODL Voice ID: [id number] Report ID: [id number]
[2019-01-15] MEDS: SILVER SULFADIAZINE 1% 50 GM TOP SCH (18:26)
[2019-01-15] MEDS: LEVALBUTEROL 0.63 MG/3 ML NEB NEB PRN (20:05)
[2019-01-15] MEDS ORDERED: DESMOPRESSIN 4 MCG/ML AMP SQ SCH (21:00)
--- NOTE | 2019-01-15 23:08 | P.PN ---
Date of Service: 01/15/19 I was called because the patient is having epistaxis again. After 2 days of nasal package, it was removed today. INR is 1.39 today, but still having nasal bleeding from the left nostril. A new set of nasal package were placed and the bleeding stop. He will need to have a ENT evaluation for further treatment. Unfortunately, there is no available ENT in our facility, so he will need to be transfer not only to place an HD catheter but ENT evaluation.
[2019-01-16] MEDS: PROPOFOL 1,000 MG/100 ML VIAL IV PRN ×2 (01:12→05:30)
[2019-01-16 03:48] LABS: HBsAG Nonreactive (Nonreactive)
[2019-01-16 05:07] LABS: Absolute Lymphocytes (CBC) 0.8 K/uL (0.7-4.9); Absolute Monocytes 0.8 K/uL (0.1-1.3); Absolute Neutrophil 6.5 K/uL (1.8-8.0); Basophils % 0.5 % (0-1.3); Eosinophils % 2.7 % (0-4.4); MPV 8.3 fL (7.6-11.3); Monocytes % 9.9 % (3.3-12.3); RBC Red Blood Cell Count 3.65 M/uL (4.33-5.43)
[2019-01-16] MEDS: NA CHLORIDE 0.9% 1,000 ML IV SCH (05:29)
[2019-01-16] MEDS: DILTIAZEM HCL 60 MG TAB PO SCH ×3 (05:30→18:00)
[2019-01-16 05:31] LABS: Albumin 2.4 g/dL (3.4-5.0); Potassium 4.5 mmol/L (3.5-5.1)
[2019-01-16] MEDS: FENTANYL CITR 100 MCG/2 ML IV PRN ×2 (05:32→12:50)
[2019-01-16 05:47] LABS: Arterial Blood Carboxyhemoglob 1.7 % (0-1.5); Blood Gas Oxyhemoglobin 94.4 % (94-97); Blood O2 Saturation 96.9 % (92-98.5)
[2019-01-16 05:56] LABS: Protime INR 1.38
[2019-01-16 07:56] VITALS: BMI 53.8
[2019-01-16] MEDS: CALCITROL 0.25 MCG CAP PO SCH (08:22)
[2019-01-16] MEDS: LACTOBACILLUS/ACIDOPHILUS TAB PO SCH (08:22)
--- NOTE | 2019-01-16 08:32 | RAD REPORT ---
EXAM DESCRIPTION: RAD - Chest Single View - 01/16/2019 7:19 am CLINICAL HISTORY: vented Chest pain. COMPARISON: Chest Single View dated 01/15/2019; Chest Single View dated 01/13/2019; Chest Single View dated 01/10/2019; Chest Single View dated 01/09/2019 FINDINGS: Portable technique limits examination quality. Tip of the ET tube is above the ariel. Airspace opacity in the right lower lobe is noted likely repr esenting infiltrate/ pneumonia in and appearing progressive since comparative study. Left-sided PICC line appears directed cephalad in the SVC. IMPRESSION: Moderate progression in right lower lobe lung consolidation since comparative study.
[2019-01-16] MEDS: SODIUM BICARB 325 MG TAB PO SCH ×2 (08:38→18:07)
[2019-01-16] MEDS: SERTRALINE HCL 50 MG TAB PO SCH (08:38)
[2019-01-16] MEDS: HYDROMORPHONE ORAL 2 MG TAB PO SCH (08:38)
[2019-01-16] MEDS: Meropenem 500 MG in NA CHLORIDE 0.9% 100 ML IV SCH ×2 (08:39→21:28)
[2019-01-16] MEDS: SILVER SULFADIAZINE 1% 50 GM TOP SCH (08:39)
[2019-01-16] MEDS: LORazepam 2 MG/ML VIAL IV PRN ×3 (08:53→21:13)
--- NOTE | 2019-01-16 10:50 | P.OP ---
Preoperative diagnosis: Acute Renal Failure Postoperative diagnosis: Acute Renal Failure Primary procedure: Placement of Temporary Right Femoral Dialysis Catheter Secondary procedure: Ultrasound and Microintroducer used Anesthesia: Local 1% lidocaine Estimated blood loss: <5cc Specimen: None Findings: Non-pulsatile red blood returned Complications: None Implants: Tunnelled Hemodilysis Catheter Transferred to: ICU Condition: Serious
[2019-01-16] MEDS ORDERED: MANNITOL 25% 12.5 GM/50 ML VIAL IV PRN (11:14)
[2019-01-16] MEDS ORDERED: NA CHLORIDE 0.9% 1,000 ML IV PRN (11:14)
[2019-01-16] MEDS ORDERED: ALBUMIN HUMAN 25% 50 ML IV SCH (12:00)
--- NOTE | 2019-01-16 12:23 | P.PN ---
Subjective Date of Service: 01/16/19 Chief Complaint: Respiratory failure Subjective: Improving (Patient's condition is stable awaiting dialysis access catheter) Review of Systems is unable to be obtained Physical Examination - Vital Signs Temperature: 98.7 F Blood Pressure: 132/94 Pulse: 96 Respirations: 14 Pulse Ox (%): 94 - Physical Exam General: Alert, Cooperative Respiratory: Clear to auscultation bilaterally Cardiovascular: Edema Assessment & Plan - Problems (Diagnosis) (1) Respiratory failure Current Visit: Yes Status: Acute Plan: Patient is clinically stable oxygenation satisfactory tonic renal failure awaiting dialysis access catheter urine shows ESBLE coli his on meropenem patient has some epistaxis just today and his nose was packed again awaiting ENT Consul anticoagulation reversed patient was on Plavix Qualifiers: Chronicity: acute (2) Pneumonia Current Visit: Yes Status: Acute Plan: There is a progression of his right lower lobe infiltrated could be a pleural effusion or pneumonia add vancomycin sputum cultures and sensitivity Qualifiers: Pneumonia type: due to unspecified organism
--- NOTE | 2019-01-16 13:26 | PN ---
Date of Progress Note: 01/16/2019 Subjective: The patient is seen and examined. Chart reviewed and case discussed with Dr. Arvizu as well as Dr. Anderson. The patient was accepted for transfer yesterday. EMS had arrived, however, h alisia had recurrent epistaxis and once [facility] was updated, the public relations director refused acceptan ce due to lack of ENT services at [facility]. The patient was accepted at [facility], however, there were no beds. The public relations director at [facility] stated that beds would not be available until the next 24 to 48 hours. The patient at this point has had replacement of the nasal trumpets due to epistaxis, will be receiving temporary dialysis catheter until a more pe rmanent solution is able to be sought at a tertiary care facility. Medications: List reviewed. Physical Examination: Vital Signs: Temperature 98.7, heart rate 89, blood pressure 106/78, respirations 14, and O2 of 94% on ET tube, 35% FiO2. General: Intubated, mildly sedated, does open eyes to name, ill-appearing, morbidly obese male, in n ot any acute distress. CV: S1 and S2, irregularly irregular. Peripheral pulses present. Respiratory: Diminished breath sounds. No wheezing. The patient does have some crackles. Gastrointestinal: Abdomen is soft, distended with multiple large abdominal hernias, which are non-re ducible. Bowel sounds positive. Extremities: No clubbing or cyanosis. The patient has diffuse bilateral lower extremity edema as we ll as edema of the upper extremities. Skin: The patient has chronic venous stasis changes with weeping of the lower extremities. Has ecch ymosis on the plantar aspect of the left foot. Neurologic: Intubated, lightly sedated, opens eyes to name, moves all 4 extremities. Laboratory Data: Sodium 134, potassium 4.5, chloride 99, CO2 of 23, BUN 125, creatinine 6.77, glucos e 171, and calcium 7.5. Albumin 2.4. WBC 8.4, H and H of 11.6 and 34, platelets 159, and neutrophil s 77%. Blood cultures and urine culture growing ESBL E coli. Chest x-ray shows moderate progression in right lower lobe lung consolidations in some comparative study. Assessment And Plan: A 78-year-old male with, 1.Acute respiratory failure with hypoxia. We will wean off ventilator as tolerated. 2.Sepsis with shock secondary to urinary tract infection and bacteremia, off pressors. 3.Catheter-associated urinary tract infection and acute cystitis secondary to extended spectrum beta lactamase producing Escherichia coli. We will continue meropenem. 4.Bacteremia secondary to extended spectrum beta lactamase producing Escherichia coli. Currently on meropenem. 5.Acute kidney injury. The patient will be started on dialysis once dialysis catheter is placed. T he patient unable to be transferred as there are no beds available. [facility] was attempted last night, n o beds available, they are at capacity. 6.Acute tubular necrosis. 7.Severe epistaxis. We will continue with Rhino Rocket. No ENT available at this time. 8.Anasarca due to volume overload, will likely have improvement with dialysis. 9.History of pulmonary embolism. Anticoagulants on hold due to bleed. 10.Morbid obesity, BMI of 53.8. 11.Severe protein-calorie malnutrition, albumin is 2.7. 12.Congestive heart failure, diastolic dysfunction, ejection fraction 71%, acute on chronic. 13.Hyponatremia, improving. We will continue to monitor. 14.Elevated troponin level secondary to demand mismatch and sepsis. There is no chest pain. 15.Atrial fibrillation, new onset. We will continue digoxin. Anticoagulation on hold due to bleed. 16.Status post mechanical fall. 17.Fracture of third and fourth metacarpals of the left foot, impacted fracture with no dislocation. Continue with fracture boot once ambulating. 18.Chronic back pain, midline, without sciatica, narcotic dependent. 19.Gastroesophageal reflux disease without esophagitis. 20.Multiple abdominal wall hernias, non-reducible. 21.Deep venous thrombosis prophylaxis with SCDs. PLAN: We will attempt to transfer if available. Initiate dialysis once catheter has been placed. O verall, poor prognosis. We will discuss with family. /MEGHANA Voice ID: [id number] Report ID: [id number]
--- NOTE | 2019-01-16 14:50 | CON ---
Date of Consultation: 01/16/2019 Reason For Consultation: Placement of temporary hemodialysis catheter. Brief History Of Present Illness: The patient is a 78-year-old male who has morbid obesity weighing approximately 545 pounds by report with a history of hypertension, coronary disease, PE, DV T, with chronic atrial fibrillation, anticoagulated with warfarin who has chronic lymphedema, who was admitted on 01/09/2019, with severe sepsis and septic shock. He was brought to the hospital during that time, had developed evidence of significant urosepsis as the source of his septic shock, which w as likely due to his chronic Hannah catheter, which is approximately 2-week-old prior to his admission . Since his admission, he had been recovered from septic shock, had extended spectrum resistant E. c jesús in his urine by report and developed significant nosebleeds, required transfusions and developed signs of acute renal failure. He was seen by Dr. Fred Willingham, surgeon, who ultimately attempted to pr epare the patient for placement of a Tesio hemodialysis catheter; however, due to the patient's sever e morbid obesity, it was determined from the operating room staff that Dr. Willingham could not proceed wi th this, as a C-arm could not move around the patient due to having no bariatric bed here and as such , the patient could not receive a tunneled hemodialysis catheter. Past Medical History: Significant for CHF, hypertension, lymphedema, chronic indwelling urinary cath eter, spinal stenosis, chronic back pain, history of DVT, PE in both 1984 and 1994. He is on chronic anticoagulation due to history of multiple PEs, GERD, iron deficient anemia, left-sided abdominal wa ll hernia, moderate right-sided abdominal hernia below the pannus, morbid obesity. Past Surgical History: Cholecystectomy, surgery to the left eye for strabismus. He has had an IVC f ilter placement, history of gastric band/bypass, history of left knee surgery repair, bilateral shoul abraham repair. Allergies: TO PAXIL, PLAVIX, SULFA, THORAZINE, PROZAC. Home Medications: Include Neurontin, Dilaudid, Claritin, Lopressor, Protonix, Pyridium, Zoloft, Desy rel, trimethoprim, diphenhydramine, vitamin D3, ferrous sulfate, fluocinonide cream, multivitamin, Ma crodantin, Zantac, simethicone, Coumadin 2.5, also Coumadin 5 mg, Augmentin, Lopressor, Monistat, Col zully, Neurontin, Glucerna, Merrem and Zofran. Family History: Heart disease, hypertension, GI disease. There is no history of smoking, alcohol, or recreational drug use. Review of Systems: He is currently intubated during my exam and as such, I am unable to obtain a history or review of sy stems. Therefore review of systems unable to obtain. Information is obtained primarily from the chart and d iscussion with other physicians. Physical Examination: At the time of my examination; General: He is intubated and sedated during my examination. HEENT: He is otherwise normocephalic. General Appearance: He has super morbid obesity. Chest: Decreased expansion and excursion. Vital Signs: Pulse of 96, blood pressure 132/94, respiratory rate 14, ventilated his oxygen saturati ons are 99% on ventilation with a FiO2 35%. Lungs: Decreased breath sounds bilaterally. Abdomen: Obese with multiple hernias as described. Extremities: Chronic lymphedema. Large pannus draping lower extremities as well. Skin: Otherwise is warm and dry. Laboratory Data: Reveals a white blood count 8.4, hemoglobin 11.6, hematocrit 34.0, platelet count i s 159, neutrophils are 77%. His coags showed a PT of 16.1, INR 1.38, PTT is 27.8. His chemistry diana wed a sodium 134, potassium 4.5, chloride 99, carbon dioxide 23, BUN 125, creatinine 6.77, glucose is 171, calcium 7.5, total bilirubin 1.0, AST 20, ALT 25, alkaline phosphatase is 86. He had a chest x -ray performed on 01/15, which was officially read as endotracheal tube has its tip well above the ca jia. Tip of nasogastric tube is not clearly seen, but probably lies within the stomach. PICC line is present. The tip is not clearly seen secondary to technical factors. Bibasilar opacities may rep resent atelectasis or infiltrate. Assessment And Plan: This is a 78-year-old male who presents with signs of acute renal failure. 1.I will reach out to patient's medical power of real estate associate attorney to discuss risks, benefits, and alternativ es of placement of a temporary hemodialysis catheter. 2.Continue medical management per primary team. Thank you for this interesting consult. RITA/MEGHANA Voice ID: [id number] Report ID: [id number]
[2019-01-16] MEDS: EPOETIN ALFA 10,000 UNIT/ML VIAL IV SCH (15:38)
[2019-01-16] MEDS ORDERED: NA CHLORIDE 0.9% 50 ML ONE (17:35)
[2019-01-16] MEDS: NA CHLORIDE 0.9% 250 ML IV SCH (18:15)
--- NOTE | 2019-01-16 19:50 | P.PN ---
Date of Service: 01/16/19 Vital Signs Temp Pulse Resp BP Pulse Ox 97.6 F 106 H 11 L 122/45 L 98 01/16/19 16:00 01/16/19 19:00 01/16/19 18:00 01/16/19 19:00 01/16/19 19:00 Medications Acetaminophen (Tylenol -Tablet) 650 mg PO Q6H PRN PRN Reason: Pain scale 2-4 (Mild) Stop: 02/09/19 16:20 Last Admin: 01/13/19 20:27 Dose: 650 mg Calcitriol (Rocaltrol) 0.5 mcg PO DAILY ON LICENSE OF [facility] Stop: 02/10/19 21:01 Last Admin: 01/16/19 08:22 Dose: Not Given Diltiazem HCl (Cardizem Tab) 30 mg PO Q6HR ON LICENSE OF [facility] Stop: 02/10/19 21:01 Last Admin: 01/16/19 18:00 Dose: Not Given Epoetin Edwin (Procrit) 10,000 unit IV EVERY HD ON LICENSE OF [facility] Stop: 02/15/19 11:16 Last Admin: 01/16/19 15:38 Dose: 10,000 unit Fentanyl Citrate (Sublimaze) 25 mcg IV Q4HP PRN PRN Reason: Pain scale 8-10 (Severe) Stop: 02/12/19 23:57 Last Admin: 01/16/19 12:50 Dose: 25 mcg Haloperidol Lactate (Haldol) 2 mg IV Q4HP PRN PRN Reason: AGITATION Stop: 02/12/19 23:57 Heparin Sodium (Porcine) (Heparin 1,000 Units/Ml) 6,000 unit IV EVERY HD PRN PRN Reason: FLUSH AFTER EACH USE Stop: 02/15/19 11:15 Last Admin: 01/16/19 15:38 Dose: 6,000 unit Hydromorphone HCl (Dilaudid) 2 mg PO DAILY ON LICENSE OF [facility] Stop: 02/14/19 09:01 Last Admin: 01/16/19 08:38 Dose: 2 mg Norepinephrine Bitartrate 8 mg (/ Dextrose) 508 mls @ 0 mls/hr IV PRN PRN; Protocol PRN Reason: Hemodynamic Parameters Stop: 02/09/19 13:27 Last Admin: 01/11/19 08:18 Dose: 508 mls Meropenem 500 mg/ Sodium (Chloride) 100 mls @ 100 mls/hr IV Q12HR JELENA Stop: 02/10/19 09:01 Last Admin: 01/16/19 08:39 Dose: 100 mls Sodium Chloride (Sodium Chloride) 250 mls @ 999 mls/hr IV Q15M PRN PRN Reason: HYPOTENSION Stop: 02/12/19 23:57 Propofol (Diprivan) 1,000 mg in 100 mls @ 0 mls/hr IV PRN PRN; Protocol PRN Reason: SEDATION Stop: 02/12/19 23:57 Last Admin: 01/16/19 05:30 Dose: 100 mls Sodium Chloride (Sodium Chloride) 250 mls @ 0 mls/hr IV .Q0M JELENA Stop: 02/13/19 01:01 Last Admin: 01/16/19 18:15 Dose: 250 mls Albumin Human (Albumin 25%) 50 mls @ 100 mls/hr IV EVERY HD JELENA Stop: 02/15/19 12:01 Sodium Chloride (Ns 1000 Ml Ivbag) 1,000 mls @ 0 mls/hr IV .Q0M PRN PRN Reason: Priming and BP support at HD Stop: 01/16/19 23:59 Lactobacillus Acidoph/Bulgaricus (Lactinex) 1 tab PO DAILY JELENA Stop: 02/10/19 09:01 Last Admin: 01/16/19 08:22 Dose: Not Given Levalbuterol HCl (Xopenex) 0.63 mg NEB [id number] PRN PRN Reason: wheezing Stop: 02/12/19 20:01 Last Admin: 01/15/19 20:05 Dose: 0.63 mg Loratadine (Claritin) 10 mg PO DAILYPRN PRN PRN Reason: ALLERGIES Stop: 02/09/19 10:30 Lorazepam (Ativan) 2 mg IV Q2HP PRN PRN Reason: SEDATION Stop: 02/12/19 23:57 Last Admin: 01/16/19 18:05 Dose: 2 mg Mannitol (Mannitol 12.5 Gm/50 Ml Vial) 12.5 gm IV EVERY HD PRN PRN Reason: Titrate to SBP (MUST DEFINE) Stop: 02/15/19 11:15 Midazolam HCl (Versed) 2 mg IV Q2HP PRN PRN Reason: SEDATION Stop: 02/12/19 23:57 Ondansetron HCl (Zofran) 4 mg IV Q6H PRN PRN Reason: NAUSEA / VOMITING Stop: 02/10/19 05:52 Last Admin: 01/11/19 06:05 Dose: 4 mg Sertraline HCl (Zoloft) 50 mg PO DAILY ON LICENSE OF [facility] Stop: 02/10/19 09:01 Last Admin: 01/16/19 08:38 Dose: 50 mg Silver Sulfadiazine (Silvadene) 1 appl TOP DAILY ON LICENSE OF [facility] Stop: 02/15/19 09:01 Last Admin: 01/16/19 08:39 Dose: 1 appl Sodium Bicarbonate (Sodium Bicarb 325 Mg) 650 mg PO BIDL ON LICENSE OF [facility] Stop: 02/11/19 09:01 Last Admin: 01/16/19 18:07 Dose: 650 mg Microbiology Results 01/09/19 18:07 Blood - Blood Aerobic Blood Culture - Final Escherichia Coli Esbl 01/09/19 18:07 Blood - Blood Gram Stain - Final 01/09/19 18:07 Blood - Blood Anaerobic Blood Culture - Final 01/09/19 17:55 Blood - Blood Aerobic Blood Culture - Final Escherichia Coli Esbl 01/09/19 17:55 Blood - Blood Gram Stain - Final 01/09/19 17:55 Blood - Blood Anaerobic Blood Culture - Final 01/09/19 18:27 Clean Catch Urine [place] Count - Final >100,000 CFU/ML. 01/09/19 18:27 Clean Catch Urine - Final Escherichia Coli Esbl Assessment/ Plan: Nephrology. Intubated over the weekend for severe epistaxis. Limited IH/ ROS due to acute illness. No acute events overnight. Vitals, medications, blood work and imaging reviewed in the chart. General: Alert, In no apparent distress, Cooperative HEENT: Atraumatic, Mucous membr. moist/pink Neck: Supple Respiratory: CTA. Intubated. Cardiovascular: Regular rate/rhythm, Edema Gastrointestinal: Hypoactive, Tenderness Musculoskeletal: No clubbing, No contractures Integumentary: No cyanosis, Skin lesion, Venous stasis ulcer Neurological: Normal speech Hannah. Laboratory Data (last 24 hrs) 01/09/19 18:07: PT 31.6 H, INR 2.79 01/09/19 18:07: WBC 32.9 H*, Hgb 13.2 L, Hct 40.7, Plt Count 164 01/09/19 18:07: Sodium 131 L, Potassium 5.4 H, BUN 42 H, Creatinine 3.81 H, Glucose 179 H, Total Bilirubin 0.6, AST 35, ALT 33, Alkaline Phosphatase 52, Lipase 57 L Greater than 30 minutes patient care. Imagings Data: EXAM DESCRIPTION: CT - Chest Abd Pelvis Wo Con - 01/09/2019 6:57 pm CLINICAL HISTORY: Chest and abdomen pain. ABDOMINAL DISTENTION COMPARISON: CTANGIO CHEST FOR PE dated 06/25/2014 TECHNIQUE: A limited noncontrast study was performed. All CT scans are performed using dose optimization technique as appropriate and may include automated exposure control or mA/KV adjustment according to patient size. FINDINGS: Mild linear subsegmental atelectasis is present in both lung bases.No pleural or pericardial effusion.No intrathoracic adenopathy.Postsurgical changes are seen about the stomach with distention of the esophagus Limited noncontrast assessment of the liver, spleen, adrenal glands and kidneys show no acute abnormality. Pancreatic atrophy is seen. Due to patient's large pannus, significant amount of the bowel is not included on this study. Within the limitations of this, no acute bowel finding. No free air or bowel obstruction. Urinary bladder is decompressed by means of Hannah catheter. Moderate fat containing right inguinal hernia. No pathologic lymphadenopathy in the abdomen or pelvis. No free fluid or hematoma. Moderate lumbar degenerative changes. IMPRESSION: No acute finding is demonstrated within the above detailed limitations. Conclusions/Impression: A/ KAYLAH likely ATN vs Prerenal azotemia. CKD III with proteinuria. Hyponatremia. Hyperkalemia. Acidosis. DM II with CKD. Diastolic CHF, chronic. Chronic Afib. Hypocalcemia. Moderate protein malnutrition. Hypoalbuminemia. Morbid Obesity with chronic lymphedema. Sepsis/ Shock. Acute ESBL E.coli Cystitis. P/ Continue current POC and Medications. Arrange for acute HD today. Temporary HD cath placed by surgery. Pressor support as needed. Ventilator support as ordered.. Abx for ESBL sepsis/ cystitis. Replete lytes as needed. Titrate Diltiazem as needed. Renal diet. No NSAIDs. AM labs. Daily weight. Case discussed with Dr. Park. Possible transfer soon.
--- NOTE | 2019-01-16 20:41 | PN ---
Subjective: The patient lying in bed on ventilator. The patient's INR was found to be 7 after which he developed some nasal bleed and respiratory distress. The patient was intubated on ventilator sin ce beginning of weekend. Objective: Vital Signs: Temperature 98.7, pulse 96, respirations 14, blood pressure 132/94. HEENT: ET tube in place. Neck: Supple. Lungs: Basal crackles. Heart: S1, S2. Regular. Abdomen: Soft. Bowel sounds present. Extremities: 3+ edema. Laboratory Data: Shows WBC 8.4, hemoglobin 11.6, platelets are 159. Chemistry shows sodium 134, pot assium 4.5, chloride 99, bicarb 23, 6.7, BUN 125, glucose 171. Micro data: E coli ESBL i n the urine and blood cultures. Assessment And Plan: Respiratory failure, bacteremia, and urinary tract infection. Continue antibio tic. Repeat cultures. We will follow the patient as needed. NF/MODL Voice ID: [id number] Report ID: [id number]
--- NOTE | 2019-01-16 21:41 | OP ---
Date of Procedure: 01/16/2019 Surgeon: Aldo Posada MD, Postoperative Diagnosis: Acute renal failure. Postoperative Diagnosis: Acute renal failure. Procedure Performed: Placement of temporary right femoral dialysis catheter using ultrasound and george ro introducer set. Anesthesia: Local 1% lidocaine used. Estimated Blood Loss: Less than 5 cc. Specimen: None. Findings: Nonpulsatile blood returned, confirmed with ultrasound guidance. Complications: None. Implant: Tunneled hemodialysis catheter, right femoral position. The patient remained in the ICU in serious condition. Procedure In Detail: After informed consent was obtained, the patient was prepped and draped in the usual sterile fashion. After adequate anesthesia was achieved, ultrasound probe was used to identify the right femoral vein. This was found to be obviously identified as the right femoral vein with a nonpulsatile flow. Using Doppler and ultrasound guidance, a micro introducer needle was introduced a fter appropriately anesthetizing the skin into the femoral vein on the first attempt. Dark red nonpu lsatile blood was returned. The micro wire was advanced, and the needle was removed. Position was o nce again verified with ultrasonography to show that this was in the vein, and this was confirmed at this time. After this was confirmed, a small myla was made over the skin, and a micro introducer she ath was placed over. The micro wire was then removed, and the standard wire was then placed through this introducer sheath. Using Seldinger technique, sequential dilatation was performed in the femora l vein, and the catheter was placed after flushing it appropriately with saline. Into the femoral ve in, the second standard wire was then removed and wire out called for the second time, confirming no wires remained in the patient, and the ports were both flushed and nakita back dark red nonpulsatile bl ood easily and flushed quite easily. They were both packed with heparin at this time. The area was once again cleansed with ChloraPrep, and the nylon suture was used to secure the catheter to the groi n area, and caps were placed on. A sterile dressing was placed overtop. The patient tolerated the p rocedure well without evidence of complication and remained in the ICU in serious condition. All cou nts were correct at the end of the case. RITA/MEGHANA Voice ID: [id number] Report ID: [id number]
[2019-01-16 23:36] LABS: Protime INR 1.41
[2019-01-17 01:14] VITALS: O2SAT 97
[2019-01-17] MEDS: DILTIAZEM HCL 60 MG TAB PO SCH ×4 (01:15→17:51)
[2019-01-17] MEDS: LORazepam 2 MG/ML VIAL IV PRN ×2 (01:16→06:00)
[2019-01-17 04:36] VITALS: TEMP 97.8
[2019-01-17] MEDS: LACTOBACILLUS/ACIDOPHILUS TAB PO SCH (08:05)
[2019-01-17] MEDS: SERTRALINE HCL 50 MG TAB PO SCH (08:06)
[2019-01-17] MEDS: SODIUM BICARB 325 MG TAB PO SCH ×2 (08:06→17:51)
[2019-01-17] MEDS: Meropenem 500 MG in NA CHLORIDE 0.9% 100 ML IV SCH ×2 (08:06→20:03)
[2019-01-17] MEDS: HYDROMORPHONE ORAL 2 MG TAB PO SCH (08:06)
[2019-01-17] MEDS: SILVER SULFADIAZINE 1% 50 GM TOP SCH (08:07)
[2019-01-17] MEDS ORDERED: OXYMETAZOLINE HCL 0.05% 15ML NAS PRN (08:42)
[2019-01-17] MEDS: CALCITROL 0.25 MCG CAP PO SCH (09:00)
[2019-01-17 09:16] LABS: Absolute Lymphocytes (CBC) 0.9 K/uL (0.7-4.9); Absolute Monocytes 1.1 K/uL (0.1-1.3); Absolute Neutrophil 8.8 K/uL (1.8-8.0); Basophils % 0.3 % (0-1.3); Eosinophils % 1.2 % (0-4.4); Hematocrit 33.8 % (39.6-49.0); Lymphocytes % 7.9 % (15.3-44.8); Monocytes % 9.8 % (3.3-12.3); RBC Red Blood Cell Count 3.62 M/uL (4.33-5.43)
[2019-01-17 09:20] LABS: Magnesium 2.3 mg/dL (1.8-2.4); Potassium 4.6 mmol/L (3.5-5.1)
[2019-01-17 09:45] LABS: Blood Morphology Comment NOT SEEN (NOT SEEN); Platelet Estimate ADEQ; Urine White Blood Cell Casts OK
[2019-01-17 11:08] LABS: Protime INR 1.43
[2019-01-17] MEDS: EPOETIN ALFA 10,000 UNIT/ML VIAL IV SCH (12:00)
--- NOTE | 2019-01-17 12:25 | P.PN ---
Subjective Date of Service: 01/17/19 Chief Complaint: Respiratory failure Subjective: Improving (Patient is doing better he is status post dialysis no further nasal bleeds) Review of Systems is unable to be obtained Physical Examination - Vital Signs Temperature: 97.8 F Blood Pressure: 140/96 Pulse: 108 Respirations: 13 Pulse Ox (%): 97 - Physical Exam General: Unresponsive (This received a dose of Ativan) Respiratory: Clear to auscultation bilaterally, Diminished Cardiovascular: Edema Assessment & Plan - Problems (Diagnosis) (1) Respiratory failure Current Visit: Yes Status: Acute Plan: Patient is doing well is only on 35% FiO2 plan to wean off and extubate. Nasal packaging removed no further evidence of bleeding patient is on antibiotics Qualifiers: Chronicity: acute (2) Pneumonia Current Visit: Yes Status: Acute Plan: Patient has a right lower lobe infiltrate which seems to have improved on the x- ray Qualifiers: Pneumonia type: due to unspecified organism
[2019-01-17] MEDS ORDERED: Pharmacy Consult 1 EA XX PRN (12:27)
[2019-01-17] MEDS ORDERED: VANCOMYCIN/NS 1 gm 1 GM/250 ML BAG IV SCH (12:45)
[2019-01-17] MEDS: ALTEPLASE 2 MG/VIAL IV SCH ×3 (14:42→15:00)
[2019-01-17] MEDS: FENTANYL CITR 100 MCG/2 ML IV PRN (14:44)
[2019-01-17] MEDS: PROPOFOL 1,000 MG/100 ML VIAL IV PRN ×3 (16:37→23:21)
--- NOTE | 2019-01-17 18:53 | RAD REPORT ---
EXAM DESCRIPTION: RAD - Chest Single View - 01/17/2019 6:03 pm CLINICAL HISTORY: Pulmonary edema COMPARISON: January 16 TECHNIQUE: AP portable chest image was obtained 1737 hours . FINDINGS: Lung volumes are similar to comparison. There is some improvement in the aeration of the r ight lung base since earlier imaging. No progressive left lung field or upper right lung field findin g. Tubes and lines are unchanged. Heart and vasculature are normal. No measurable pleural effusion an d no pneumothorax. No acute bony abnormality seen. No acute aortic finding. Retrocardiac left base re junior limited assessment. IMPRESSION: Partial clearing of the right lung base opacification from prior day imaging.
--- NOTE | 2019-01-17 21:31 | P.PN ---
Subjective Date of Service: 01/17/19 Chief Complaint: Respiratory failure Subjective: No new changes Patient seen and examined at bedside. Chart reveiwed and case discussed with nursing staff. Review of Systems 10-point ROS is otherwise unremarkable Physical Examination - Vital Signs Temperature: 97.8 F Blood Pressure: 117/74 Pulse: 106 Respirations: 11 Pulse Ox (%): 93 Assessment And Plan - Plan A 78-year-old male with, Acute respiratory failure with hypoxia. Currently intubated. Attempt for SBT, wean as tolerated. Sepsis with shock secondary to urinary tract infection and bacteremia, off pressors. Catheter-associated urinary tract infection and acute cystitis secondary to extended spectrum beta lactamase producing Escherichia coli. We will continue meropenem. Bacteremia secondary to extended spectrum beta lactamase producing Escherichia coli. Currently on meropenem. Acute kidney injury. Temporary dialysis cathether placed, he is s/p dialysis x 1. Temp access now seems to be kinked and no longer working. Surgery on board , though we will continue attempts for transfer to a tertiary care center for a more permanent access. Acute tubular necrosis. Severe epistaxis. We will continue with [place]. No ENT available at this time. Continues to have serosanginuous discharge Anasarca due to volume overload, unable to do dialysis at this time as pt with no access. Will continue to attempt to transfer. History of pulmonary embolism. Anticoagulants on hold due to bleed. Morbid obesity, BMI of 53.8. Severe protein-calorie malnutrition, albumin is 2.7. Congestive heart failure, diastolic dysfunction, ejection fraction 71%, acute on chronic. Hyponatremia, improving. We will continue to monitor. Elevated troponin level secondary to demand mismatch and sepsis. There is no chest pain. Atrial fibrillation, new onset. We will continue digoxin. Anticoagulation on hold due to bleed. Status post mechanical fall. Fracture of third and fourth metacarpals of the left foot, impacted fracture with no dislocation. Continue with fracture boot once ambulating. Chronic back pain, midline, without sciatica, narcotic dependent. Gastroesophageal reflux disease without esophagitis. Multiple abdominal wall hernias, non-reducible. Deep venous thrombosis prophylaxis with SCDs. PLAN: We will attempt to transfer if available. Overall, poor prognosis. MPOA is caregiver, not at bedside. Will attempt to contact tomorrow.
--- NOTE | 2019-01-17 21:47 | P.PN ---
Date of Service: 01/17/19 Vital Signs Temp Pulse Resp BP Pulse Ox 97.8 F 106 H 11 L 117/74 93 01/17/19 21:38 01/17/19 21:38 01/17/19 21:38 01/17/19 21:38 01/17/19 21:38 Medications Acetaminophen (Tylenol -Tablet) 650 mg PO Q6H PRN PRN Reason: Pain scale 2-4 (Mild) Stop: 02/09/19 16:20 Last Admin: 01/13/19 20:27 Dose: 650 mg Calcitriol (Rocaltrol) 0.5 mcg PO DAILY [facility] Stop: 02/10/19 21:01 Last Admin: 01/17/19 09:00 Dose: Not Given Diltiazem HCl (Cardizem Tab) 30 mg PO Q6HR [facility] Stop: 02/10/19 21:01 Last Admin: 01/17/19 17:51 Dose: 30 mg Epoetin Edwin (Procrit) 10,000 unit IV EVERY HD [facility] Stop: 02/15/19 11:16 Last Admin: 01/17/19 12:00 Dose: 10,000 unit Fentanyl Citrate (Sublimaze) 25 mcg IV Q4HP PRN PRN Reason: Pain scale 8-10 (Severe) Stop: 02/12/19 23:57 Last Admin: 01/17/19 14:44 Dose: 25 mcg Haloperidol Lactate (Haldol) 2 mg IV Q4HP PRN PRN Reason: AGITATION Stop: 02/12/19 23:57 Heparin Sodium (Porcine) (Heparin 1,000 Units/Ml) 6,000 unit IV EVERY HD PRN PRN Reason: FLUSH AFTER EACH USE Stop: 02/15/19 11:15 Last Admin: 01/16/19 15:38 Dose: 6,000 unit Hydromorphone HCl (Dilaudid) 2 mg PO DAILY [facility] Stop: 02/14/19 09:01 Last Admin: 01/17/19 08:06 Dose: 2 mg Norepinephrine Bitartrate 8 mg (/ Dextrose) 508 mls @ 0 mls/hr IV PRN PRN; Protocol PRN Reason: Hemodynamic Parameters Stop: 02/09/19 13:27 Last Admin: 01/11/19 08:18 Dose: 508 mls Meropenem 500 mg/ Sodium (Chloride) 100 mls @ 100 mls/hr IV Q12HR [facility]ELE[facility] Stop: 02/10/19 09:01 Last Admin: 01/17/19 20:03 Dose: 100 mls Sodium Chloride (Sodium Chloride) 250 mls @ 999 mls/hr IV Q15M PRN PRN Reason: HYPOTENSION Stop: 02/12/19 23:57 Propofol (Diprivan) 1,000 mg in 100 mls @ 0 mls/hr IV PRN PRN; Protocol PRN Reason: SEDATION Stop: 02/12/19 23:57 Last Admin: 01/17/19 20:00 Dose: 100 mls Sodium Chloride (Sodium Chloride) 250 mls @ 0 mls/hr IV .Q0M JELENA Stop: 02/13/19 01:01 Last Admin: 01/16/19 18:15 Dose: 250 mls Albumin Human (Albumin 25%) 50 mls @ 100 mls/hr IV EVERY HD [facility]ELENA Stop: 02/15/19 12:01 Pharmacy Consult (Pharmacy Consult) 1 mls @ 1 mls/hr XX DAILYPRN PRN; Protocol PRN Reason: Vancomycin dose by pharmacy Stop: 02/16/19 12:28 Vancomycin HCl (Vancomycin 1 Gm/250 Ml Ns Ivpb) 1 gm in 250 mls @ 125 mls/hr IV AFTER EACH DIALYSIS [facility] Stop: 02/16/19 12:46 Lactobacillus Acidoph/Bulgaricus (Lactinex) 1 tab PO DAILY [facility] Stop: 02/10/19 09:01 Last Admin: 01/17/19 08:05 Dose: 1 tab Levalbuterol HCl (Xopenex) 0.63 mg NEB [id number] PRN PRN Reason: wheezing Stop: 02/12/19 20:01 Last Admin: 01/15/19 20:05 Dose: 0.63 mg Loratadine (Claritin) 10 mg PO DAILYPRN PRN PRN Reason: ALLERGIES Stop: 02/09/19 10:30 Lorazepam (Ativan) 2 mg IV Q2HP PRN PRN Reason: SEDATION Stop: 02/12/19 23:57 Last Admin: 01/17/19 06:00 Dose: 2 mg Mannitol (Mannitol 12.5 Gm/50 Ml Vial) 12.5 gm IV EVERY HD PRN PRN Reason: Titrate to SBP (MUST DEFINE) Stop: 02/15/19 11:15 Midazolam HCl (Versed) 2 mg IV Q2HP PRN PRN Reason: SEDATION Stop: 02/12/19 23:57 Ondansetron HCl (Zofran) 4 mg IV Q6H PRN PRN Reason: NAUSEA / VOMITING Stop: 02/10/19 05:52 Last Admin: 01/11/19 06:05 Dose: 4 mg Oxymetazoline HCl (Afrin) 1 appl KENDRA BID PRN PRN Reason: NASAL CONGESTION Stop: 02/16/19 08:43 Last Admin: 01/17/19 10:15 Dose: 2 sprays Sertraline HCl (Zoloft) 50 mg PO DAILY [facility] Stop: 02/10/19 09:01 Last Admin: 01/17/19 08:06 Dose: 50 mg Silver Sulfadiazine (Silvadene) 1 appl TOP DAILY [facility] Stop: 02/15/19 09:01 Last Admin: 01/17/19 08:07 Dose: 1 appl Sodium Bicarbonate (Sodium Bicarb 325 Mg) 650 mg PO BIDL JELENA Stop: 02/11/19 09:01 Last Admin: 01/17/19 17:51 Dose: 650 mg Microbiology Results 01/09/19 18:07 Blood - Blood Aerobic Blood Culture - Final Escherichia Coli Esbl 01/09/19 18:07 Blood - Blood Gram Stain - Final 01/09/19 18:07 Blood - Blood Anaerobic Blood Culture - Final 01/09/19 17:55 Blood - Blood Aerobic Blood Culture - Final Escherichia Coli Esbl 01/09/19 17:55 Blood - Blood Gram Stain - Final 01/09/19 17:55 Blood - Blood Anaerobic Blood Culture - Final 01/09/19 18:27 Clean Catch Urine [place] Count - Final >100,000 CFU/ML. 01/09/19 18:27 Clean Catch Urine - Final Escherichia Coli Esbl Assessment/ Plan: Nephrology. Intubated over the weekend for severe epistaxis. Limited IH/ ROS due to acute illness. No acute events overnight. Tolerated HD yesterday well. Vitals, medications, blood work and imaging reviewed in the chart. General: Alert, In no apparent distress, Cooperative HEENT: Atraumatic, Mucous membr. moist/pink Neck: Supple Respiratory: CTA. Intubated. Cardiovascular: Regular rate/rhythm, Edema Gastrointestinal: Hypoactive, Tenderness Musculoskeletal: No clubbing, No contractures Integumentary: No cyanosis, Skin lesion, Venous stasis ulcer Neurological: Normal speech Hannah. Laboratory Data (last 24 hrs) 01/09/19 18:07: PT 31.6 H, INR 2.79 01/09/19 18:07: WBC 32.9 H*, Hgb 13.2 L, Hct 40.7, Plt Count 164 01/09/19 18:07: Sodium 131 L, Potassium 5.4 H, BUN 42 H, Creatinine 3.81 H, Glucose 179 H, Total Bilirubin 0.6, AST 35, ALT 33, Alkaline Phosphatase 52, Lipase 57 L Greater than 30 minutes patient care. Imagings Data: EXAM DESCRIPTION: CT - Chest Abd Pelvis Wo Con - 01/09/2019 6:57 pm CLINICAL HISTORY: Chest and abdomen pain. ABDOMINAL DISTENTION COMPARISON: CTANGIO CHEST FOR PE dated 06/25/2014 TECHNIQUE: A limited noncontrast study was performed. All CT scans are performed using dose optimization technique as appropriate and may include automated exposure control or mA/KV adjustment according to patient size. FINDINGS: Mild linear subsegmental atelectasis is present in both lung bases.No pleural or pericardial effusion.No intrathoracic adenopathy.Postsurgical changes are seen about the stomach with distention of the esophagus Limited noncontrast assessment of the liver, spleen, adrenal glands and kidneys show no acute abnormality. Pancreatic atrophy is seen. Due to patient's large pannus, significant amount of the bowel is not included on this study. Within the limitations of this, no acute bowel finding. No free air or bowel obstruction. Urinary bladder is decompressed by means of [place] catheter. Moderate fat containing right inguinal hernia. No pathologic lymphadenopathy in the abdomen or pelvis. No free fluid or hematoma. Moderate lumbar degenerative changes. IMPRESSION: No acute finding is demonstrated within the above detailed limitations. Conclusions/Impression: A/ KAYLAH likely ATN vs Prerenal azotemia. CKD III with proteinuria. Hyponatremia. Hyperkalemia. Acidosis. DM II with CKD. Diastolic CHF, chronic. Chronic Afib. Hypocalcemia. Moderate protein malnutrition. Hypoalbuminemia. Morbid Obesity with chronic lymphedema. Sepsis/ Shock. Acute ESBL E.coli Cystitis. P/ Continue current POC and Medications. Arrange for acute HD today. Next HD tomorrow. Pressor support as needed. Ventilator support as ordered. Abx for ESBL sepsis/ cystitis. Replete lytes as needed. Titrate Diltiazem as needed. Renal diet. No NSAIDs. AM labs. Daily weight. Possible transfer soon.
[2019-01-18 05:28] VITALS: BP 114/67
--- NOTE | 2019-01-18 21:34 | CON ---
Date of Consultation: 01/17/2019 Additional Consulting Physician: Dr. Park. Reason For Consultation: To rule out a coagulation disorder. History Of Present Illness: is a morbidly obese 78-year-old, who was hospitalized approxi mately 1 week ago with complaints of blood allergy, diarrhea, and a fall. He was brought to the [facility] room, where he was altered in mental status and blood work revealed elevated white blood cells with a left shift and elevated lactate and procalcitonin, all suggestive of septicemia and septic diana ck. He is currently on a ventilator, sedated on propofol, and unable to provide any history. For th past week, developed epistaxis, he was bleeding from both nostrils, which had to be pack ed. When the packing was removed, his right nostril bleeding abated; however, bleeding from the left nostril has continued, unabated. Of note, he is on Coumadin for a history of deep vein thrombosis a nd pulmonary emboli and PT-INR on admission was 31.6 seconds with an INR of 2.79, but elvie to a PT of 88.4 seconds and an INR of 8.12 by the ; at which point, the warfarin was discontinued and he wa s treated with 2 units of FFPs. He has also received 2 units of packed red blood cells when his hemo globin fell to 8.2 g/dL, also on the 13 of January. The nurses inform me that he has had some blood or serosanguineous discharge from the ET tube, but th ere was no evidence of bleeding from IV sites or from the Hannah catheter. Review of Systems: Limited given that the patient is nonverbal and on a ventilator and sedated. Past Medical History: Significant for: 1.Morbid obesity. 2.Hypertension. 3.Congestive heart failure. 4.History of DVT and PE. 5.Gastroesophageal reflux disease. 6.Iron deficiency anemia. 7.Lymphedema of the lower extremities. 8.Depression. Past Surgical History: Significant for: 1.An IVC filter placed years ago. 2.History of gastric bypass surgery. 3.Cholecystectomy. 4.Left knee surgery. 5.Bilateral shoulder repair. Medications: His current medications are as follows; calcitriol 0.5 mcg p.o. daily, diltiazem 30 mg p.o. q.6 hours, Procrit 10,000 units with every dialysis, fentanyl 25 mcg IV q.4 hours p.r.n. for naomi n, haloperidol 2 mg IV q.4 hours p.r.n. for agitation, Dilaudid 2 mg p.o. daily, levalbuterol 0.63 mg nebulizer q.6 hours p.r.n. for wheezing, loratadine 10 mg p.o. daily, Lorazepam 2 mg IV q.2 hours p. r.n. for sedation, meropenem 500 mg q.12 hours, ondansetron 4 mg IV q.6 hours p.r.n. for nausea or vo miting, Afrin 1 application to each nostril b.i.d. p.r.n. for bleeding, propofol drip for sedation, Z oloft 50 mg p.o. daily, and vancomycin 1 g IV after each dialysis. Allergies: THE PATIENT IS ALLERGIC TO THE FOLLOWING MEDICATIONS; PAROXETINE, PLAVIX, SULFA DRUGS, CH LORPROMAZINE, FLUOXETINE, AND THORAZINE. Social And Family History: He is a and a retired [employer] employee. History of reecee r smoking and no significant alcohol or drug use is available from the chart. Physical Examination: Vital Signs: On examination, was afebrile. Temperature was 97.8 Fahrenheit at 4 p.m.. P ulse 117. Respirations 15 per minute on a ventilator. Blood pressure was 125/86, saturating in the mid 90s. He is on dialysis, but does have urine output of approximately 2150 mL in the preceding 24 hours. General: This is a morbidly obese gentleman who appears to be anasarcous with significant edema from head to toe. There is mild pallor. No cyanosis or icterus was seen. Skin: Examination revealed bruising of the forearms with skin tares and petechiae. No bruising was noted on the torso. HEENT: Examination reveals serosanguineous drainage from the left nostril, which is still packed. T he right nostril reveals old crusted blood and no active bleeding. NG tube reveals dark greenish bro wn output while the ET tube revealed serosanguineous bloody watery discharge upon suction as per nurs es. Genitourinary: The dialysis catheter in the left groin does not show any evidence of bleeding, nor d oes the IV lines. Hannah is draining dark yellow urine with no evidence of blood or clots. Lymphatic: There was no palpable lymphadenopathy in the neck or groin. Chest: Revealed bilateral vesicular breath sounds, decreased at the bases. Heart: Sounds revealed normal S1, S2. No gallops or murmurs were noted. Abdomen: Distended. There were no masses or tenderness. Bowel sounds were decreased. Neurological: Examination could not be done, is very limited secondary to sedation. He did not resp ond to verbal or painful stimulation. Extremities: Show significant edema of both arms and legs with evidence of chronic venous hypertensi on and venous dermatitis on both lower extremities. Laboratory Data: Revealed a white count of 10.9 thousand. Hemoglobin was 11.5 g/dL, stable for the past 3 days. Platelet count was 181,000. A peripheral smear review showed reactive leukocytosis wit h left shift, but no evidence of schistocytes or platelet abnormality. PT, INR done last night revea led a PT of 60.4, INR of 1.41. PTT was 29.5. Fibrinogen was increased at 593 mg/dL. Chemistries re veal a BUN of 93, creatinine of 4.7. Albumin was decreased at 2.4. His procalcitonin on admission w as 110.80 ng/mL. Assessment And Plan: is a 78-year-old gentleman with multiple comorbidities including a h istory of DVT and PE on chronic warfarin therapy, end-stage renal disease on dialysis, and morbid obe sity, who developed bilateral epistaxis from both nostrils when his INR was supratherapeutic at 8.12 on the . A workup done by me revealed no evidence of a consumptive coagulopathy or indeed signif icant bleeding in the past 3 days since his hemoglobin has been stable. In my opinion, the continued serosanguineous drainage from the left nostril could be due to an anatomical defect/blood vessel, i. e., local etiology rather than a coagulopathy. There is also no evidence of significant clinical ble eding from any of the IV lines or other sites to suggest an acquired coagulopathy. I would suggest a n ENT evaluation as soon as possible to address the continued left nostril bleed. I would also sugge st you keep his INR below 2 to avoid rebleeding. Weight-based FFP transfusion may be required, thdavin quiles he has received a total of 15 mg of vitamin K, which should be sufficient for now. I would suggest to resume the warfarin and watch his INR closely once the bleeding has stopped. I wo uld suggest platelet transfusion only if he has hemodynamically significant bleeding or a major bleed ing requiring transfusion and his platelet count is less than 50,000. Thank you for asking me to see . Please do not hesitate to call me if you have any other q uestions. AP/MODL Voice ID: [id number] Report ID: [id number]
== END 2019-01-17 23:45 | disposition short-term general hospital (02) | DRG 870 ==
LOC: ER 17:20 → 3RD-ICU 22:24 → 2ND 01-13 07:20 → 3RD-ICU 01-13 08:07
PROVIDERS: ADMIT Internal Medicine; ATTEND Family Medicine
PROC: 02HV33Z Insertion of Infusion Device into Superior Vena Cava, Percutaneous Approach (ICD-10-PCS; 2019-01-10)
PROC: B548ZZA Ultrasonography of Superior Vena Cava, Guidance (ICD-10-PCS; 2019-01-10)
PROC: 5A1955Z Respiratory Ventilation, Greater than 96 Consecutive Hours (ICD-10-PCS; principal; 2019-01-13)
PROC: 0BH17EZ Insertion of Endotracheal Airway into Trachea, Via Natural or Artificial Opening (ICD-10-PCS; 2019-01-13)
PROC: 2Y41X5Z Packing of Nasal Region using Packing Material (ICD-10-PCS; 2019-01-13)
PROC: 30243L1 Transfusion of Nonautologous Fresh Plasma into Central Vein, Percutaneous Approach (ICD-10-PCS; 2019-01-14)
PROC: 30243N1 Transfusion of Nonautologous Red Blood Cells into Central Vein, Percutaneous Approach (ICD-10-PCS; 2019-01-14)
PROC: 2Y41X5Z Packing of Nasal Region using Packing Material (ICD-10-PCS; 2019-01-15)
PROC: 0JHM3XZ Insertion of Tunneled Vascular Access Device into Left Upper Leg Subcutaneous Tissue and Fascia, Percutaneous Approach (ICD-10-PCS; 2019-01-16)
PROC: 06HN33Z Insertion of Infusion Device into Left Femoral Vein, Percutaneous Approach (ICD-10-PCS; 2019-01-16)
PROC: B54CZZA Ultrasonography of Left Lower Extremity Veins, Guidance (ICD-10-PCS; 2019-01-16)
PROC: 5A1D70Z Performance of Urinary Filtration, Intermittent, Less than 6 Hours Per Day (ICD-10-PCS; 2019-01-16)
PROC: 5A1D70Z Performance of Urinary Filtration, Intermittent, Less than 6 Hours Per Day (ICD-10-PCS; 2019-01-17)
DX: A41.51 Sepsis due to Escherichia coli [E. coli] (principal); R65.21 Severe sepsis with septic shock; N17.0 Acute kidney failure with tubular necrosis; E43 Unspecified severe protein-calorie malnutrition; J96.01 Acute respiratory failure with hypoxia; I50.33 Acute on chronic diastolic (congestive) heart failure; J18.9 Pneumonia, unspecified organism; T83.511A Infection and inflammatory reaction due to indwelling urethral catheter, initial encounter; N30.00 Acute cystitis without hematuria; I13.0 Hypertensive heart and chronic kidney disease with heart failure and stage 1 through stage 4 chronic kidney disease, or unspecified chronic kidney disease; Z68.43 Body mass index [BMI] 50.0-59.9, adult; E87.1 Hypo-osmolality and hyponatremia; E87.2 Acidosis; N17.9 Acute kidney failure, unspecified; D68.9 Coagulation defect, unspecified; I48.2 Chronic atrial fibrillation; Z79.01 Long term (current) use of anticoagulants; I89.0 Lymphedema, not elsewhere classified; R19.7 Diarrhea, unspecified; Z88.2 Allergy status to sulfonamides; Z88.8 Allergy status to other drugs, medicaments and biological substances; Z86.718 Personal history of other venous thrombosis and embolism; Z86.711 Personal history of pulmonary embolism; K21.9 Gastro-esophageal reflux disease without esophagitis; E66.01 Morbid (severe) obesity due to excess calories; I25.10 Atherosclerotic heart disease of native coronary artery without angina pectoris; E11.22 Type 2 diabetes mellitus with diabetic chronic kidney disease; N18.3 Chronic kidney disease, stage 3 (moderate); Z79.84 Long term (current) use of oral hypoglycemic drugs; E83.51 Hypocalcemia; E88.09 Other disorders of plasma-protein metabolism, not elsewhere classified; B96.20 Unspecified Escherichia coli [E. coli] as the cause of diseases classified elsewhere; Z16.12 Extended spectrum beta lactamase (ESBL) resistance; R80.9 Proteinuria, unspecified; G89.29 Other chronic pain; M54.9 Dorsalgia, unspecified; K43.9 Ventral hernia without obstruction or gangrene; I95.9 Hypotension, unspecified; S62.303A Unspecified fracture of third metacarpal bone, left hand, initial encounter for closed fracture; S62.305A Unspecified fracture of fourth metacarpal bone, left hand, initial encounter for closed fracture; W01.0XXA Fall on same level from slipping, tripping and stumbling without subsequent striking against object, initial encounter; Y93.01 Activity, walking, marching and hiking; Y92.129 Unspecified place in nursing home as the place of occurrence of the external cause; R00.0 Tachycardia, unspecified; E87.5 Hyperkalemia; F32.9 Major depressive disorder, single episode, unspecified; R04.0 Epistaxis; R60.1 Generalized edema; Z98.84 Bariatric surgery status; R79.89 Other specified abnormal findings of blood chemistry; D50.9 Iron deficiency anemia, unspecified
CPT/HCPCS: 36415; 36430; 70450; 71045; 71250; 74176; 80048; 80053; 80076; 81001; 81003; 81015; 82043; 82140; 82550; 82553; 82570; 82805; 83605; 83690; 83735; 83880; 83930; 83935; 84100; 84132; 84145; 84300; 84484; 84550; 85014; 85018; 85025; 85384; 85610; 85730; 86317; 86704; 86706; 86803; 86850; 86900; 86901; 87040; 87070; 87077; 87086; 87088; 87186; 87205; 87340; 90935; 93005; 94003; 94640; 94760; 96361; 96365; 96366; 99284; J0330; J0692; J1644; J1940; J2250; J2405; J2543; J2704; J2997; J3010; J3370; J3430; J7030; J7060; P9016; P9047; P9059; Q4081

== ENCOUNTER 2019-07-12 10:51 | Inpatient (IN) | payer OTHER ==
--- OUTSIDE RECORDS SUMMARY | 2019-07-12 10:54 | XMS REPORT | Clinical Summary ---
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 Site ID: [id number] Name: [facility] Address: [address] [place] [id number] Director: Laly Whitehead Performing Organization Address [facility] [place] [address] Hemoglobin A1c (04/26/2019 10:25 AM CDT) Pathologist [facility] Hemoglobin A1C 6.6 (H) <5.7 % of [facility] Comment: total Hgb [place] For someone without known diabetes, a hemoglobin A1c value of 6.5% or greater indicates that they may have diabetes and this should be confirmed with a follow-up test. For someone with known diabetes, a value <7% indicates that their diabetes is well controlled and a value greater than or equal to 7% indicates suboptimal control. A1c targets should be individualized based on duration of diabetes, age, comorbid conditions, and other considerations. Currently, no consensus exists regarding use of hemoglobin A1c for diagnosis of diabetes for children. Specimen Narrative Performed At FASTING:[facility]KNOWN [facility] AN UPDATE OR CORRECTION HAS BEEN MADE TO NAME FASTING: UNKNOWN Resulting Agency Comment Performing Organization Information: Site ID: [id number] Name: [facility] Address: [address] [place], [place] [id number] Director: Laly Whitehead Performing Organization Address [facility] Phone Number [facility] [place] [address] Vitamin B12 level (04/26/2019 10:25 AM CDT) Vitamin B12 908 200 - 1,100 pg/mL [facility] Red Stamp [place] Specimen Narrative Performed At FASTING:[facility]KNOWN [facility] AN UPDATE OR CORRECTION HAS BEEN MADE TO NAME FASTING: UNKNOWN Resulting Agency Comment Performing Organization Information: Site ID: [id number] Name: [facility] Address: [address] [place] [address] Director: Laly Whitehead Performing Organization Address [facility] Phone Number [facility] [place] [address] Lipid panel (04/26/2019 10:25 AM CDT) Cholesterol, total 188 <200 mg/dL [facility] HDL cholesterol 42 >40 mg/dL [facility] Triglycerides 193 (H) <150 mg/dL [facility] LDL cholesterol 115 (H) mg/dL (calc) Eayun calculated Comment: [place] Reference range: <100 Desirable range <100 mg/dL for primary prevention; <70 mg/dL for patients with CHD or diabetic patients with > or=2 CHD risk factors. LDL-C is now calculated using the Ron-Bradly calculation, which is a validated novel method providing better accuracy than the Friedewald equation in the estimation of LDL-C. Ron SS et al. BRADEN. 2013;310(19): 1584-2718 (http://education.[employer]/faq/IEJ393) Cholesterol/HDL 4.5 <5.0 (calc) [facility] Non-HDL cholesterol 146 (H) <130 mg/dL E[facility] Comment: (calc) [place] For patients with diabetes plus 1 major ASCVD risk factor, treating to a non-HDL-C goal of <100 mg/dL (LDL-C of <70 mg/dL) is considered a therapeutic option. Specimen Narrative Performed At FASTING:[facility]KNOWN [facility] AN UPDATE OR CORRECTION HAS BEEN MADE TO NAME FASTING: UNKNOWN Resulting Agency Comment Performing Organization Information: Site ID: [facility] Name: [facility] Address: [address] [place] [id number] Director: Laly Whitehead Performing Organization Address City/State/Zipcode Phone Number MCKAYLA Eayun [place] [address] [place] [address] Basic metabolic panel (03/31/2019) Specimen Blood Narrative Performed At after 07/11/2018 Insurance Payer Benefit Plan / Subscriber ID Effective Dates Phone Address Type Group [facility] xxxxxxxxxxx 2003-Present [facility] MEDICARE MEDICARE PART A xxxxxxxxxx 2001-Present [place], [place] Medicare AND B ([place]) [place] [address] Advance Directives For more information, please contact: [phone] Type Date 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
--- OUTSIDE RECORDS SUMMARY | 2019-07-12 10:55 | XMS REPORT | Clinical Summary ---
:1940 Author Organization [facility] Address [address] [place] [address] Care Team Providers Name Role Phone Unavailable Primary Care Provider Unavailable Allergies Active Allergy Reactions Severity Noted Date Comments Clopidogrel 01/18/2019 Fluoxetine 01/18/2019 Sulfa (Sulfonamide Antibiotics) 01/18/2019 Chlorpromazine 01/18/2019 Medications Medication Sig Dispensed Refills Start Date End Date Status loratadine (CLARITIN) Take 10 mg by 0 Active 10 mg tablet mouth daily. pantoprazole Take 40 mg by 0 Active (PROTONIX) 40 MG mouth daily. tablet sertraline (ZOLOFT) Take 50 mg by 0 Active 50 MG tablet mouth daily. traZODone (DESYREL) Take 100 mg by 0 Active 100 MG tablet mouth nightly. gabapentin Take 600 mg by 0 Active (NEURONTIN) 600 MG mouth 4 (four) tablet times daily. metoprolol Take 25 mg by 0 Active (LOPRESSOR) 25 MG mouth 2 (two) tablet times daily. furosemide (LASIX) 40 Take 1 tablet 90 tablet 3 01/28/2019 Active MG tablet (40 mg total) 0 by mouth daily. lidocaine (XYLOCAINE) Apply 50 g 3 01/27/2019 Active 5 % ointment topically as needed. sodium chloride 0.65% 1 spray by 15 mL 2 01/27/2019 Active (OCEAN) 0.65 % nasal Nasal route as 0 spray needed. warfarin (COUMADIN) 5 Take 1 tablet 0 01/31/2019 Active MG tablet (5 mg total) by mouth daily. senna-docusate Take 1 tablet 90 tablet 3 01/30/2019 Active (SENOKOT S) 8.6-50 mg by mouth 0 per tablet nightly. phenazopyridine Take 200 mg by 0 Discontinued (PYRIDIUM) 200 MG mouth 3 9 tablet (three) times daily as needed for Pain. warfarin (COUMADIN) Take 2.5 mg by 0 Discontinued 2.5 MG tablet mouth daily. 9 warfarin (COUMADIN) 5 Take 5 mg by 0 Discontinued MG tablet mouth daily. 9 HYDROmorphone Take 4 mg by 0 Discontinued (DILAUDID) 4 MG mouth every 6 9 tablet (six) hours as needed for Pain. polyethylene glycol Take 17 g by 60 each 0 01/27/2019 (GLYCOLAX) 17 gram mouth 2 (two) 9 packet times daily for 30 days. traMADol (ULTRAM) 50 Take 1 tablet 30 tablet 0 01/30/2019 mg tablet (50 mg total) 9 by mouth every 6 (six) hours as needed for up to 10 days. Max Daily Amount: 200 mg HYDROcodone-acetamino Take 1 tablet 30 tablet 0 01/30/2019 phen (NORCO 10-325) by mouth every 9 10-325 mg per tablet 4 (four) hours as needed for up to 10 days. Max Daily Amount: 6 tablets Active Problems Problem Noted Date Acute renal failure with tubular necrosis 01/18/2019 UTI due to extended-spectrum beta lactamase (ESBL) producing Escherichia 01/18 coli Chronic atrial fibrillation 01/18/2019 Healthcare-associated pneumonia 01/18/2019 Morbid obesity with BMI of 50.0-59.9, adult 01/18/2019 Resolved Problems Problem Noted Date Resolved Date Acute hypoxemic respiratory failure 01/18/2019 01/26/2019 Epistaxis 01/18/2019 01/26/2019 Bacteremia due to Escherichia coli 01/18/2019 01/26/2019 Overview: ESBL E. Coli from urinary source, chronic indwelling sims catheter Encounters Date Type Specialty Care Team Description 01/18/2019 - Hospital General Internal Brooks Barrett Acute hypoxemic respiratory failure ([facility]); 01/30/2019 Encounter Medicine MD May Acute renal failure with tubular necrosis ([facility]); Corey Nazario Bacteremia due to Escherichia coli; MD Mariano Chronic atrial fibrillation ([facility]); Minerva English, Epistaxis; Puma Ovalles MD Healthcare-associated pneumonia; Nancy Merino Morbid obesity with BMI of 50.0-59.9, adult ([facility]); MD Nallely UTI due to extended-spectrum beta lactamase (ESBL) producing Escherichia coli; Imtiaz Joe, ESBL (extended spectrum beta-lactamase) producing bacteria infection; KAYLAH (acute kidney injury) ([facility]); Candiduria 01/17/2019 Telephone Critical Care Brooks Barrett transfer [facility] MD May after 07/11/2018 Immunizations Name Dates Previously Given Next Due Influenza High Dose Preservative Free IM 01/24/2019 (Deferred: ) Pneumococcal Conjugate (Prevnar) 13-Valent 01/24/2019 (Deferred: ) Family History Medical History Relation Name Comments Heart disease Father Hypertension Father Relation Name Status Comments Father Social History Tobacco Use Types Packs/Day Years Used Date Never Smoker Smokeless Tobacco: Never Used Alcohol Use Drinks/Week oz/Week Comments No Alcohol Habits Answer Date Recorded How often do you have a drink containing alcohol? Never 01/25/2019 How many drinks containing alcohol do you have on a typical Not asked day when you are drinking? How often do you have six or more drinks on one occasion? Not asked Sex Assigned at Date Recorded Not on file Job Start Date Occupation Industry Not on file Not on file Not on file Travel History Travel Start Travel End No recent travel history available. Last Filed Vital Signs Vital Sign Reading Time Taken Blood Pressure 109/67 01/30/2019 8:14 PM CDT Pulse 66 01/30/2019 8:14 PM CDT Temperature 35.8 C (96.5 F) 01/30/2019 8:14 PM CDT Respiratory Rate 16 01/30/2019 8:14 PM CDT Oxygen Saturation 95% 01/30/2019 8:14 PM CDT Inhaled Oxygen Concentration 40% 01/23/2019 9:37 AM [employer] Weight 181.2 kg (399 lb 7.6 oz) 01/29/2019 5:00 AM CDT Height - - Body Mass Index - - Plan of Treatment Not on file Procedures Procedure Name Priority Date/Time Associated Comments Diagnosis REPORT OF PROCEDURE - 02/01/2019 1:20 ENDOSCOPY SCAN PM CDT RHYTHM STRIP - SCAN 02/01/2019 1:20 PM CDT POCT-GLUCOSE METER Routine 01/30/2019 5:02 Results for this PM CDT procedure are in the results section. POCT-GLUCOSE METER Routine 01/30/2019 12:10 Results for this PM CDT procedure are in the results section. POCT-GLUCOSE METER Routine 01/30/2019 8:33 Results for this AM CDT procedure are in the results section. CBC W/PLT COUNT & AUTO Routine 01/30/2019 4:26 Results for this DIFFERENTIAL AM CDT procedure are in the results section. PROTHROMBIN TIME/INR Routine 01/30/2019 4:26 Results for this AM CDT procedure are in the results section. CBC W/PLT COUNT & AUTO Routine 01/30/2019 4:26 Results for this DIFFERENTIAL AM CDT procedure are in the results section. MAGNESIUM Routine 01/30/2019 4:26 Results for this AM CDT procedure are in the results section. BASIC METABOLIC PANEL Routine 01/30/2019 4:26 Results for this (7) AM CDT procedure are in the results section. POCT-GLUCOSE METER Routine 01/29/2019 10:25 Results for this PM CDT procedure are in the results section. POCT-GLUCOSE METER Routine 01/29/2019 5:19 Results for this PM CDT procedure are in the results section. URINALYSIS W/ Routine 01/29/2019 2:24 Results for this MICROSCOPIC PM CDT procedure are in the results section. POCT-GLUCOSE METER Routine 01/29/2019 11:47 Results for this AM CDT procedure are in the results section. POCT-GLUCOSE METER Routine 01/29/2019 8:50 Results for this AM CDT procedure are in the results section. CBC W/PLT COUNT & AUTO Routine 01/29/2019 6:17 Results for this DIFFERENTIAL AM CDT procedure are in the results section. PROTHROMBIN TIME/INR Routine 01/29/2019 6:17 Results for this AM CDT procedure are in the results section. CBC W/PLT COUNT & AUTO Routine 01/29/2019 6:17 Results for this DIFFERENTIAL AM CDT procedure are in the results section. MAGNESIUM Routine 01/29/2019 6:17 Results for this AM CDT procedure are in the results section. BASIC METABOLIC PANEL Routine 01/29/2019 6:17 Results for this (7) AM CDT procedure are in the results section. POCT-GLUCOSE METER Routine 01/28/2019 9:36 Results for this PM [employer] procedure are in the results section. POCT-GLUCOSE METER Routine 01/28/2019 6:30 Results for this PM [employer] procedure are in the results section. URINALYSIS W/ REFLEX Routine 01/28/2019 2:07 Results for this URINE CULTURE PM [employer] procedure are in the results section. URINE CULTURE Routine 01/28/2019 2:07 Results for this PM [employer] procedure are in the results section. POCT-GLUCOSE METER Routine 01/28/2019 12:00 Results for this PM [employer] procedure are in the results section. POCT-GLUCOSE METER Routine 01/28/2019 7:58 Results for this AM [employer] procedure are in the results section. APTT Routine 01/28/2019 6:11 Results for this AM [employer] procedure are in the results section. PROTHROMBIN TIME/INR Routine 01/28/2019 6:11 Results for this AM [employer] procedure are in the results section. MAGNESIUM Routine 01/28/2019 6:11 Results for this AM [employer] procedure are in the results section. BASIC METABOLIC PANEL Routine 01/28/2019 6:11 Results for this (7) AM [employer] procedure are in the results section. APTT Routine 01/27/2019 10:53 Results for this PM [employer] procedure are in the results section. POCT-GLUCOSE METER Routine 01/27/2019 10:06 Results for this PM [employer] procedure are in the results section. APTT Routine 01/27/2019 6:38 Results for this PM [employer] procedure are in the results section. POCT-GLUCOSE METER Routine 01/27/2019 4:12 Results for this PM [employer] procedure are in the results section. APTT Routine 01/27/2019 12:28 Results for this PM [employer] procedure are in the results section. POCT-GLUCOSE METER Routine 01/27/2019 12:05 Results for this PM [employer] procedure are in the results section. POCT-GLUCOSE METER Routine 01/27/2019 8:45 Results for this AM [employer] procedure are in the results section. APTT Routine 01/27/2019 4:00 Results for this AM [employer] procedure are in the results section. PROTHROMBIN TIME/INR Routine 01/27/2019 4:00 Results for this AM [employer] procedure are in the results section. MAGNESIUM Routine 01/27/2019 4:00 Results for this AM [employer] procedure are in the results section. BASIC METABOLIC PANEL Routine 01/27/2019 4:00 Results for this (7) AM [employer] procedure are in the results section. POCT-GLUCOSE METER Routine 01/26/2019 9:42 Results for this PM [employer] procedure are in the results section. POCT-GLUCOSE METER Routine 01/26/2019 5:47 Results for this PM [employer] procedure are in the results section. POCT-GLUCOSE METER Routine 01/26/2019 1:16 Results for this PM [employer] procedure are in the results section. APTT Routine 01/26/2019 1:11 Results for this PM [employer] procedure are in the results section. POCT-GLUCOSE METER Routine 01/26/2019 9:06 Results for this AM [employer] procedure are in the results section. APTT Routine 01/26/2019 5:36 Results for this AM [employer] procedure are in the results section. PROTHROMBIN TIME/INR Routine 01/26/2019 5:36 Results for this AM [employer] procedure are in the results section. MAGNESIUM Routine 01/26/2019 5:36 Results for this AM [employer] procedure are in the results section. BASIC METABOLIC PANEL Routine 01/26/2019 5:36 Results for this (7) AM [employer] procedure are in the results section. POCT-GLUCOSE METER Routine 01/25/2019 10:40 Results for this PM [employer] procedure are in the results section. APTT Routine 01/25/2019 10:30 Results for this PM [employer] procedure are in the results section. POCT-GLUCOSE METER Routine 01/25/2019 4:12 Results for this PM [employer] procedure are in the results section. APTT Routine 01/25/2019 3:05 Results for this PM [employer] procedure are in the results section. POCT-GLUCOSE METER Routine 01/25/2019 12:31 Results for this PM [employer] procedure are in the results section. POCT-GLUCOSE METER Routine 01/25/2019 9:06 Results for this AM [employer] procedure are in the results section. APTT Routine 01/25/2019 4:34 Results for this AM [employer] procedure are in the results section. PROTHROMBIN TIME/INR Routine 01/25/2019 4:34 Results for this AM [employer] procedure are in the results section. VITAMIN D, 25-HYDROXY Routine 01/25/2019 4:34 Results for this AM [employer] procedure are in the results section. PHOSPHORUS Routine 01/25/2019 4:34 Results for this AM [employer] procedure are in the results section. MAGNESIUM Routine 01/25/2019 4:34 Results for this AM [employer] procedure are in the results section. BASIC METABOLIC PANEL Routine 01/25/2019 4:34 Results for this (7) AM [employer] procedure are in the results section. POCT-GLUCOSE METER Routine 01/24/2019 10:20 Results for this PM [employer] procedure are in the results section. POCT-GLUCOSE METER Routine 01/24/2019 4:35 Results for this PM [employer] procedure are in the results section. RHYTHM STRIP - SCAN 01/24/2019 1:50 PM [employer] POCT-GLUCOSE METER Routine 01/24/2019 12:33 Results for this PM [employer] procedure are in the results section. XR FOOT LEFT 2 VIEW HO 01/24/2019 11:15 Results for this AM [employer] procedure are in the results section. POCT-GLUCOSE METER Routine 01/24/2019 8:10 Results for this AM [employer] procedure are in the results section. APTT Routine 01/24/2019 3:47 Results for this AM [employer] procedure are in the results section. PROTHROMBIN TIME/INR Routine 01/24/2019 3:47 Results for this AM [employer] procedure are in the results section. PHOSPHORUS Routine 01/24/2019 3:47 Results for this AM [employer] procedure are in the results section. MAGNESIUM Routine 01/24/2019 3:47 Results for this AM [employer] procedure are in the results section. BASIC METABOLIC PANEL Routine 01/24/2019 3:47 Results for this (7) AM [employer] procedure are in the results section. POCT-GLUCOSE METER Routine 01/23/2019 9:24 Results for this PM [employer] procedure are in the results section. POCT-GLUCOSE METER Routine 01/23/2019 4:26 Results for this PM [employer] procedure are in the results section. POCT-GLUCOSE METER Routine 01/23/2019 12:01 Results for this PM [employer] procedure are in the results section. POCT-GLUCOSE METER Routine 01/23/2019 7:55 Results for this AM [employer] procedure are in the results section. CBC W/PLT COUNT & AUTO STAT 01/23/2019 4:03 Results for this DIFFERENTIAL AM [employer] procedure are in the results section. CBC W/PLT COUNT & AUTO STAT 01/23/2019 4:03 Results for this DIFFERENTIAL AM [employer] procedure are in the results section. PROTHROMBIN TIME/INR Routine 01/23/2019 4:03 Results for this AM [employer] procedure are in the results section. FERRITIN Routine 01/23/2019 4:03 Results for this AM [employer] procedure are in the results section. PHOSPHORUS Routine 01/23/2019 4:03 Results for this AM [employer] procedure are in the results section. MAGNESIUM Routine 01/23/2019 4:03 Results for this AM [employer] procedure are in the results section. BASIC METABOLIC PANEL Routine 01/23/2019 4:03 Results for this (7) AM [employer] procedure are in the results section. APTT STAT 01/23/2019 1:59 Results for this AM [employer] procedure are in the results section. POCT-GLUCOSE METER Routine 01/22/2019 10:57 Results for this PM [employer] procedure are in the results section. APTT STAT 01/22/2019 8:05 Results for this PM [employer] procedure are in the results section. POCT-GLUCOSE METER Routine 01/22/2019 7:36 Results for this PM [employer] procedure are in the results section. POCT-GLUCOSE METER Routine 01/22/2019 11:51 Results for this AM [employer] procedure are in the results section. APTT Routine 01/22/2019 11:23 Results for this AM [employer] procedure are in the results section. POCT-GLUCOSE METER Routine 01/22/2019 8:10 Results for this AM [employer] procedure are in the results section. APTT STAT 01/22/2019 4:19 Results for this AM [employer] procedure are in the results section. PROTHROMBIN TIME/INR Routine 01/22/2019 4:19 Results for this AM [employer] procedure are in the results section. FERRITIN Routine 01/22/2019 4:19 Results for this AM [employer] procedure are in the results section. VITAMIN B12 Routine 01/22/2019 4:19 Results for this AM [employer] procedure are in the results section. PHOSPHORUS Routine 01/22/2019 4:19 Results for this AM [employer] procedure are in the results section. MAGNESIUM Routine 01/22/2019 4:19 Results for this AM [employer] procedure are in the results section. BASIC METABOLIC PANEL Routine 01/22/2019 4:19 Results for this (7) AM [employer] procedure are in the results section. POCT-GLUCOSE METER Routine 01/21/2019 9:34 Results for this PM [employer] procedure are in the results section. ECHOCARDIOGRAM REPORT - 01/21/2019 9:20 SCAN PM [employer] POCT-GLUCOSE METER Routine 01/21/2019 6:52 Results for this PM [employer] procedure are in the results section. PROTHROMBIN TIME/INR Routine 01/21/2019 1:07 Results for this PM [employer] procedure are in the results section. APTT Routine 01/21/2019 1:07 Results for this PM [employer] procedure are in the results section. POCT-GLUCOSE METER Routine 01/21/2019 12:08 Results for this PM [employer] procedure are in the results section. APTT Routine 01/21/2019 10:18 Results for this AM [employer] procedure are in the results section. POCT-GLUCOSE METER Routine 01/21/2019 6:51 Results for this AM [employer] procedure are in the results section. CBC W/PLT COUNT & AUTO Routine 01/21/2019 3:06 Results for this DIFFERENTIAL AM [employer] procedure are in the results section. CBC W/PLT COUNT & AUTO Routine 01/21/2019 3:06 Results for this DIFFERENTIAL AM [employer] procedure are in the results section. APTT Routine 01/21/2019 2:53 Results for this AM [employer] procedure are in the results section. FERRITIN Routine 01/21/2019 2:53 Results for this AM [employer] procedure are in the results section. VITAMIN B12 Routine 01/21/2019 2:53 Results for this AM [employer] procedure are in the results section. PHOSPHORUS Routine 01/21/2019 2:53 Results for this AM [employer] procedure are in the results section. MAGNESIUM Routine 01/21/2019 2:53 Results for this AM [employer] procedure are in the results section. BASIC METABOLIC PANEL Routine 01/21/2019 2:53 Results for this (7) AM [employer] procedure are in the results section. POCT-GLUCOSE METER Routine 01/21/2019 12:21 Results for this AM [employer] procedure are in the results section. PERIPHERAL VASCULAR 01/20/2019 9:22 REPORT - SCAN PM [employer] APTT Routine 01/20/2019 8:18 Results for this PM [employer] procedure are in the results section. POCT-GLUCOSE METER Routine 01/20/2019 6:26 Results for this PM [employer] procedure are in the results section. 2D ECHO W/ DOPPLER Routine 01/20/2019 4:35 Results for this (CW/PW/COLOR) PM [employer] procedure are in the results section. APTT Routine 01/20/2019 1:52 Results for this PM [employer] procedure are in the results section. POCT-GLUCOSE METER Routine 01/20/2019 12:21 Results for this PM [employer] procedure are in the results section. APTT Routine 01/20/2019 12:15 Results for this PM [employer] procedure are in the results section. POCT-GLUCOSE METER Routine 01/20/2019 7:13 Results for this AM [employer] procedure are in the results section. APTT Routine 01/20/2019 5:18 Results for this AM [employer] procedure are in the results section. APTT Routine 01/20/2019 3:57 Results for this AM [employer] procedure are in the results section. PROCALCITONIN Routine 01/20/2019 3:57 Results for this AM [employer] procedure are in the results section. FERRITIN Routine 01/20/2019 3:57 Results for this AM [employer] procedure are in the results section. VITAMIN B12 Routine 01/20/2019 3:57 Results for this AM [employer] procedure are in the results section. PHOSPHORUS Routine 01/20/2019 3:57 Results for this AM [employer] procedure are in the results section. MAGNESIUM Routine 01/20/2019 3:57 Results for this AM [employer] procedure are in the results section. BASIC METABOLIC PANEL Routine 01/20/2019 3:57 Results for this (7) AM [employer] procedure are in the results section. POCT-GLUCOSE METER Routine 01/20/2019 12:27 Results for this AM [employer] procedure are in the results section. APTT Routine 01/19/2019 10:04 Results for this PM [employer] procedure are in the results section. APTT Routine 01/19/2019 9:23 Results for this PM [employer] procedure are in the results section. APTT Routine 01/19/2019 7:33 Results for this PM [employer] procedure are in the results section. TRANSFUSION SERVICE 01/19/2019 6:02 REPORT - SCAN PM [employer] POCT-GLUCOSE METER Routine 01/19/2019 4:17 Results for this PM [employer] procedure are in the results section. BLOOD GAS, ARTERIAL Routine 01/19/2019 1:04 Results for this PM [employer] procedure are in the results section. US RENAL COMPLETE Routine 01/19/2019 12:44 Results for this PM [employer] procedure are in the results section. APTT Routine 01/19/2019 11:07 Results for this AM [employer] procedure are in the results section. XR CHEST 1 VIEW STAT 01/19/2019 10:55 Results for this PORTABLE/BEDSIDE AM [employer] procedure are in the results section. POCT-GLUCOSE METER Routine 01/19/2019 6:12 Results for this AM [employer] procedure are in the results section. APTT Routine 01/19/2019 4:52 Results for this AM [employer] procedure are in the results section. CBC W/PLT COUNT & AUTO Routine 01/19/2019 4:01 Results for this DIFFERENTIAL AM [employer] procedure are in the results section. CBC W/PLT COUNT & AUTO Routine 01/19/2019 4:01 Results for this DIFFERENTIAL AM [employer] procedure are in the results section. VANCOMYCIN LEVEL, Routine 01/19/2019 4:01 Results for this RANDOM AM [employer] procedure are in the results section. FERRITIN Routine 01/19/2019 4:01 Results for this AM [employer] procedure are in the results section. VITAMIN B12 Routine 01/19/2019 4:01 Results for this AM [employer] procedure are in the results section. FOLATE, RBC Routine 01/19/2019 4:01 Results for this AM [employer] procedure are in the results section. PHOSPHORUS Routine 01/19/2019 4:01 Results for this AM [employer] procedure are in the results section. MAGNESIUM Routine 01/19/2019 4:01 Results for this AM [employer] procedure are in the results section. BASIC METABOLIC PANEL Routine 01/19/2019 4:01 Results for this (7) AM [employer] procedure are in the results section. POCT-GLUCOSE METER Routine 01/19/2019 12:44 Results for this AM [employer] procedure are in the results section. POCT-GLUCOSE METER Routine 01/18/2019 5:57 Results for this PM [employer] procedure are in the results section. BODY FLUID CELL COUNT Routine 01/18/2019 4:35 Results for this WITH DIFFERENTIAL PM [employer] procedure are in the results section. BRONCHIAL CULTURE + Routine 01/18/2019 4:34 Results for this GRAM STAIN PM [employer] procedure are in the results section. PTH, INTACT Routine 01/18/2019 1:57 Results for this PM [employer] procedure are in the results section. 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 POTASSIUM, RANDOM URINE Routine 01/18/2019 1:57 Results for this PM [employer]END[employer] procedure are in the results section. UREA NITROGEN, RANDOM Routine 01/18/2019 1:57 Results for this URINE PM [employer]INE [employer]ER procedure are in the results section. POCT-GLUCOSE METER Routine 01/18/2019 12:04 Results for this PM [employer]ACHINE [employer]ENDER procedure are in the results section. APTT Routine 01/18/2019 10:30 Results for this AM [employer]ING MACHINE TENDER procedure are in the results section. SPUTUM CULTURE + GRAM Routine 01/18/2019 10:30 Results for this STAIN AM [employer]ACHINE [employer]ENDER procedure are in the results section. MRSA SCREEN STAT 01/18/2019 10:30 Results for this AM [employer] MACHINE [employer]ENDER procedure are in the results section. VENOUS DOPPLER LEGS Routine 01/18/2019 9:05 Results for this BILATERAL AM [employer]ACHINE [employer]ER procedure are in the results section. VENOUS DOPPLER ARMS Routine 01/18/2019 9:05 Results for this BILATERAL AM [employer]ACHINE [employer]ENDER procedure are in the results section. POCT-GLUCOSE METER Routine 01/18/2019 6:06 Results for this AM [employer]INE [employer] procedure are in the results section. XR ABDOMEN 1 VIEW Routine 01/18/2019 5:28 Results for this AM [employer]ACHINE [employer] procedure are in the results section. ABORH, MANUAL STAT 01/18/2019 4:28 Results for this AM [employer]ACH[employer]ER procedure are in the results section. TYPE AND SCREEN Routine 01/18/2019 3:17 Results for this AM [employer]ACHINE [employer] procedure are in the results section. FERRITIN Routine 01/18/2019 3:17 Results for this AM [employer] MACHINE [employer]ER procedure are in the results section. VITAMIN B12 Routine 01/18/2019 3:17 Results for this AM [employer] procedure are in the results section. FOLATE, RBC Routine 01/18/2019 3:17 Results for this AM [employer] MACHINE [employer]ENDER procedure are in the results section. IRON, TIBC, % SAT. Routine 01/18/2019 3:17 Results for this (WITHOUT FERRITIN) AM [employer] MACHINE [employer]ENDER procedure are in the results section. SPUTUM CULTURE + GRAM Routine 01/18/2019 2:37 Results for this STAIN AM [employer]INE [employer]ER procedure are in the results section. PROTEIN, RANDOM URINE STAT 01/18/2019 2:24 Results for this AM [employer] procedure are in the results section. CREATININE, RANDOM STAT 01/18/2019 2:24 Results for this URINE AM [employer] procedure are in the results section. SODIUM, RANDOM URINE STAT 01/18/2019 2:24 Results for this AM [employer] procedure are in the results section. URINALYSIS W/ REFLEX Routine 01/18/2019 2:24 Results for this URINE CULTURE AM [employer]INE [employer] procedure are in the results section. URINE CULTURE Routine 01/18/2019 2:24 Results for this AM [employer]INE [employer]ER procedure are in the results section. B-TYPE NATRIURETIC Routine 01/18/2019 2:20 Results for this FACTOR (BNP) AM [employer] procedure are in the results section. BLOOD CULTURE Routine 01/18/2019 2:20 Results for this AM [employer]ACHINE [employer]ENDER procedure are in the results section. XR CHEST 1 VIEW Routine 01/18/2019 2:18 Results for this PORTABLE/BEDSIDE AM [employer] procedure are in the results section. BLOOD GAS, ARTERIAL Routine 01/18/2019 2:12 Results for this AM [employer]ACH[employer]ENDER procedure are in the results section. CBC W/PLT COUNT & AUTO Routine 01/18/2019 2:11 Results for this DIFFERENTIAL AM [employer] procedure are in the results section. PHOSPHORUS Routine 01/18/2019 2:11 Results for this AM [employer]ENDER procedure are in the results section. MAGNESIUM Routine 01/18/2019 2:11 Results for this AM [employer] MACH[employer]ER procedure are in the results section. COMPREHENSIVE METABOLIC Routine 01/18/2019 2:11 Results for this PANEL AM [employer]ACH[employer] procedure are in the results section. LACTIC ACID, ARTERIAL Routine 01/18/2019 2:11 Results for this AM [employer]ER procedure are in the results section. CBC W/PLT COUNT & AUTO Routine 01/18/2019 2:11 Results for this DIFFERENTIAL AM [employer]ER procedure are in the results section. BLOOD CULTURE Routine 01/18/2019 2:11 Results for this AM [employer]ER procedure are in the results section. APTT Routine 01/18/2019 2:10 Results for this AM [employer]ER procedure are in the results section. PROTHROMBIN TIME/INR Routine 01/18/2019 2:10 Results for this AM [employer]ACHINE [employer]ER procedure are in the results section. XR CHEST 1 VIEW STAT 01/18/2019 2:06 Results for this PORTABLE/BEDSIDE AM [employer]ER procedure are in the results section. after 07/11/2018 Results EKG-SCANNED (02/01/2019 1:20 PM CDT) Narrative Performed At RHYTHM STRIP - SCAN (02/01/2019 1:20 PM CDT)Only the most recent of2 resultswithin the time period is included. Narrative Performed At POC-Glucose meter (01/30/2019 5:02 PM CDT)Only the most recent of50 resultswithin the time period is included. POC-Glucose Meter 171 (H)Comment: TESTED AT 70 - 110 mg/dL [facility] [address] [facility] [id number] Specimen Blood Performing Organization Address City/State/Zipcode Phone Number [address] [address] CENTER CBC with platelet count + automated diff (01/30/2019 4:26 AM CDT)Only the most recent of6 resultswithin the time period is included. WBC 6.8 3.5 - 10.5 K/L [facility] RBC 3.42 (L) 4.63 - 6.08 M/L [facility] Hemoglobin 10.7 (L) 13.7 - 17.5 GM/DL [facility] Hematocrit 34.5 (L) 40.1 - 51.0 % [facility] MCV 100.9 (H) 79.0 - 92.2 fL [facility] MCH 31.3 25.7 - 32.2 pg [facility] MCHC 31.0 (L) 32.3 - 36.5 GM/DL [facility] RDW 14.0 11.6 - 14.4 % [facility] Platelets 196 150 - 450 K/CU MM [facility] MPV 10.5 9.4 - 12.4 fL [facility] nRBC 0 0 - 0 /100 WBC [facility] % Neutros 56 % [facility] % Lymphs 24 % [facility] % Monos 14 % [facility] % Eos 4 % [facility] % Baso 1 % [facility] # Neutros 3.81 1.78 - 5.38 K/L [facility] # Lymphs 1.64 1.32 - 3.57 K/L [facility] # Monos 0.98 (H) 0.30 - 0.82 K/L [facility] # Eos 0.29 0.04 - 0.54 K/L [facility] # Baso 0.05 0.01 - 0.08 K/L [facility] Immature 1 0 - 1 % [facility] Specimen Blood Performing Organization Address City/State/Zipcode Phone Number [facility] [address] [address] [place] Daily Prothrombin time/INR while on warfarin (01/30/2019 4:26 AM CDT)Only the most recent of11 resultswithin the time period is included. Protime 32.7 (H) 11.7 - 14.7 seconds [facility] INR 3.2 <=5.9 [facility] Specimen Blood Narrative Performed At RECOMMENDED COUMADIN/WARFARIN INR THERAPY [facility] RANGES STANDARD DOSE: 2.0 - 3.0 Includes: PROPHYLAXIS for venous thrombosis, systemic embolization; TREATMENT for venous thrombosis and/or pulmonary embolus. HIGH RISK: Target INR is 2.5-3.5 for patients with mechanical heart valves. While on warfarin. Performing Organization Address City[facility] Phone Number [address] [phone] CENTER Magnesium (01/30/2019 4:26 AM CDT)Only the most recent of13 resultswithin the time period is included. Magnesium 1.7 1.6 - 2.6 mg/dL [facility] Specimen Blood Performing Organization Address City/State/Zipcode Phone Number [address] [phone] [place] Basic Metabolic Panel (01/30/2019 4:26 AM CDT)Only the most recent of12 resultswithin the time period is included. Sodium 137 136 - 145 meq/L [facility] Potassium 4.2 3.5 - 5.1 meq/L [facility] Chloride 100 98 - 107 meq/L [facility] CO2 27 22 - 29 meq/L [facility] BUN 49 (H) 7 - 21 mg/dL [facility] Creatinine 1.73 (H) 0.57 - 1.25 mg/dL [facility] Glucose 192 (H) 70 - 105 mg/dL [facility] Calcium 9.7 8.4 - 10.2 mg/dL [facility] EGFR 39Comment: ESTIMATED GFR IS mL/min/1.73 sq m [facility] NOT ACCURATE CREATININE [facility] CENTER CLEARANCE IN PREDICTING GLOMERULAR FILTRATION RATE. ESTIMATED GFR IS NOT APPLICABLE FOR DIALYSIS PATIENTS. Specimen Blood Performing Organization Address [facility] Phone Number [facility] [address] [place] [address] CENTER Urinalysis w/Microscopic (01/29/2019 2:24 PM CDT) Color, UA Light Yellow [facility] Clarity, UA Hazy [facility] Specific [place], UA 1.010 1.001 - 1.035 [facility] pH, UA 8.0 5.0 - 8.0 [facility] Protein, UA 10 mg/dL (A) Negative [facility] Glucose, UA Negative Negative [facility] Ketones, UA Negative Negative [facility] Bilirubin, UA Negative Negative [facility] Blood, UA Small (A) Negative [facility] Nitrite, UA Negative Negative [facility] Leukocytes, UA Large (A) Negative [facility] Urobilinogen, UA 0.2 0.2 - 1.0 mg/dL [facility] RBC, UA 0 /HPF [facility] WBC, UA 64 /HPF [facility] Bacteria, UA Moderate [facility] Triple Phosphate Crystals Few [facility] Yeast Few [facility] Specimen Source Urine, Sims [facility] Specimen Urine Performing Organization Address City/[facility]/Zipcode Phone Number [facility] [address] [place] [address] [place] Urinalysis w/Microscopic + Reflex to Culture (01/28/2019 2:07 PM [employer]OUNDING MACHINE TENDER)Only the most recent of2 resultswithin the time period is included. Color, UA Yellow [facility] Clarity, UA Cloudy [facility] Specific [place], UA 1.012 1.001 - 1.035 [facility] pH, UA 8.5 (H) 5.0 - 8.0 [facility] Protein, UA 100 mg/dL (A) Negative [facility] Glucose, UA Negative Negative [facility] Ketones, UA Negative Negative [facility] Bilirubin, UA Negative Negative [facility] Blood, UA Trace (A) Negative [facility] Nitrite, UA Negative Negative [facility] Leukocytes, UA Large (A) Negative [facility] Urobilinogen, UA 0.2 0.2 - 1.0 mg/dL [facility] RBC, UA 28 /HPF [facility] WBC, UA 112 /HPF [facility] Bacteria, UA Many [facility] Mucus Few [facility] Triple Phosphate Crystals Few [facility] Yeast Many [facility] Specimen Source [facility] Specimen Urine Performing Organization Address City/State/Zipcode Phone Number [facility] [address] [place] [address] [place] Urine culture (01/28/2019 2:07 PM [employer]OUNDING MACHINE TENDER)Only the most recent of2 resultswithin the time period is included. Result >100,000 col/mL Proteus mirabilis [facility] (A)Comment: Predominant organism [facility] Specimen Urine Narrative Performed At >100,000 col/mL enteric organisms of >2 [facility] types. No further workup performed. Multiple organisms suggestive of colonization or contamination. Repeat collection recommended. Organism Antibiotic Method Susceptibility Proteus mirabilis Amikacin <=2: Susceptible Proteus mirabilis Ampicillin + Sulbactam <=2: Susceptible Proteus mirabilis Aztreonam <=1: Susceptible Proteus mirabilis Cefepime <=1: Susceptible Proteus mirabilis Cefoxitin <=4: Susceptible Proteus mirabilis Ceftazidime <=1: Susceptible Proteus mirabilis Ceftriaxone <=1: Susceptible Proteus mirabilis Ertapenem <=0.5: Susceptible Proteus mirabilis Gentamicin <=1: Susceptible Proteus mirabilis Levofloxacin >=8: Resistant Proteus mirabilis Meropenem 0.5: Susceptible Proteus mirabilis Nitrofurantoin 128: Resistant Proteus mirabilis Piperacillin + Tazobactam <=4: Susceptible Proteus mirabilis Tetracycline 2: Resistant Proteus mirabilis Tobramycin <=1: Susceptible Proteus mirabilis Trimethoprim + Sulfamethoxazole >=320: Resistant Performing Organization Address City/[facility]/Zipcode Phone Number [address] [address] [phone] CENTER aPTT (01/28/2019 6:11 AM [employer]OUNDING MACHINE TENDER)Only the most recent of30 resultswithin the time period is included. PTT 95.4 (H) 22.5 - 36.0 seconds [facility] Specimen Blood Narrative Performed At While on warfarin. [facility] Performing Organization Address City/[facility]/Zipcode Phone Number [address] [phone] [place] Vitamin D, 25-Hydroxy (01/25/2019 4:34 AM ROUNDING MACHINE TENDER)Only the most recent of2 resultswithin the time period is included. Vitamin D 25-Hydroxy 37.0 6.6 - 49.9 ng/mL [facility] Specimen Blood Narrative Performed At Effective 09/01/2017: Reference Range Change [facility] New: 6.6-49.9 ng/mL Previous: 13.0-47.8 ng/mL Recommended Vitamin D Target Range: 30.0-40.0 ng/mL Performing Organization Address City/State/Zipcode Phone Number [facility] [address], [place] [phone] CENTER Phosphorus (01/25/2019 4:34 AM ROUNDING MACHINE TENDER)Only the most recent of8 resultswithin the time period is included. Phosphorus 4.4 2.3 - 4.7 mg/dL [facility] Specimen Blood Performing Organization Address City[facility] Phone Number [address] [phone] [place] XR foot 2 views left (01/24/2019 11:15 AM ROUNDING MACHINE TENDER) Specimen Narrative Performed At FINAL REPORT GE RIS TECHNIQUE: Frontal, lateral, and oblique radiographs of the left foot dated 01/24/2019 HISTORY: Pain COMPARISON: None. FINDINGS: There appears to be inversion of the foot medially. On the lateral view there appear to be fractures of the fourth and fifth proximal metatarsal bones this is not clearly seen on the frontal or oblique views. It is difficult to determine the acuity of these fractures. No dislocation. Bones are osteopenic. The Lisfranc joint is well aligned on these nonstress views. No bone erosion or soft tissue nodule seen. No radiodense foreign body or subcutaneous emphysema. There is marked soft tissue swelling of the foot. IMPRESSION: Age indeterminate fractures of the fourth and fifth metatarsal bones, seen on the lateral view only.. Soft tissue swelling of the foot. Signed: Fahad Armenta MD Report Verified Date/Time:01/24/2019 13:10:38 Reading Location: [facility] Radiology Reading Room Procedure Note Interface, External Ris In - 01/24/2019 1:12 PM [employer]OUNDING MACHINE TENDER FINAL REPORT TECHNIQUE: Frontal, lateral, and oblique radiographs of the left foot dated 01/24/2019 HISTORY: Pain COMPARISON: None. FINDINGS: There appears to be inversion of the foot medially. On the lateral view there appear to be fractures of the fourth and fifth proximal metatarsal bones this is not clearly seen on the frontal or oblique views. It is difficult to determine the acuity of these fractures. No dislocation. Bones are osteopenic. The Lisfranc joint is well aligned on these nonstress views. No bone erosion or soft tissue nodule seen. No radiodense foreign body or subcutaneous emphysema. There is marked soft tissue swelling of the foot. IMPRESSION: Age indeterminate fractures of the fourth and fifth metatarsal bones, seen on the lateral view only.. Soft tissue swelling of the foot. Signed: Fahad Armenta MD Report Verified Date/Time: 01/24/2019 13:10:38 Reading Location: [facility] Radiology Reading Room Performing Organization Address City/[facility] Phone Number [facility] Ferritin (01/23/2019 4:03 AM ROUNDING MACHINE TENDER)Only the most recent of6 resultswithin the time period is included. Ferritin 508 (H) 5 - 275 ng/mL [facility] Specimen Blood Narrative Performed At Next blood draw [facility] Performing Organization Address [facility] Phone Number [address] [phone] [place] Vitamin B12 (01/22/2019 4:19 AM ROUNDING MACHINE TENDER)Only the most recent of5 resultswithin the time period is included. Vitamin B12 1,426 (H) 213 - 816 pg/mL [facility] Specimen Blood Narrative Performed At Next blood draw [facility] Next blood draw Performing Organization Address [facility] Phone Number [address] [phone] [place] ECHOCARDIOGRAM REPORT - SCAN (01/21/2019 9:20 PM ROUNDING MACHINE TENDER) Narrative Performed At PERIPHERAL VASCULAR REPORT - SCAN (01/20/2019 9:22 PM ROUNDING MACHINE TENDER) Narrative Performed At 2D Echo W/Doppler(CW/PW/Color) (01/20/2019 4:35 PM ROUNDING MACHINE TENDER) Ejection Fraction [facility]CHO [facility] Specimen Narrative Performed At Transthoracic Echocardiography Report (TTE) [facility] Demographics Patient NameAMINTA RAJAN Date of Study01/20/2019 Gender Male Visit [id number] Race [id number] Number Date of 1940 Referring PhysicianBrooks Barrett Age 78 year(s) SonographCECILIA Siegel Interpreting [facility] Needs to be Pre PhysicianRead Ross Corral MD Procedure Type of Study TTE procedure:2DECHO W DOPPLER(CW/PW/COLOR) (Routine) Indications:Respiratory failure or hypoxemia . Clinical History AFIB, CHF, DVT/PE, HTN, Morbid obesity HGB 11.4 HCT 34 % Contrast Medium: Definity. Amount - 2 ml Height: 70 inches Weight: 195.95 kg (432 lbs) BSA: 2.9 m^2 BMI: 61.98 kg/m^2 HR: 106 bpm BP: 153/77 mmHg Summary TECHNICALLY DIFFICULT STUDY The left ventricle is chamber size (by PSLAX dimension) is normal (male - LVIDd 4.2-5.8cm) . Mild concentric LV hypertrophy. All of the LV segments contract normally . Global LV systolic function normal . Estimated LVEF by qualitative assessment is normal (60%) . LV endocardium is adequately visualized with IV ultrasound enhancing agent. Degree of diastolic dysfunction (LAP assessment) is inconclusive due to arrhythmia . Estimated peak systolic PA pressure is 30-35 mmHg . A trivial pericardial effusion is suspected anterior. Signature Findings Technical Quality: Technically difficult exam. Rhythm/BPIrregular rhythm during the exam. At rial fibrillation with rapid ventricular re sponse. Left Ventricle The left ventricle is chamber size (by PSLAX di mension) is normal (male - LVIDd 4.2-5.8cm) . Mi ld concentric LV hypertrophy. All of the LV se gments contract normally . Global LV systolic fu nction normal . Estimated LVEF by qualitative as sessment is normal (60%) . LV endocardium is ad equately visualized with IV ultrasound enhancing ag ent. Normal (cardiac index 2-3 L/min/m2) cardiac ou tput state at rest is noted. Degree of diastolic dy sfunction (LAP assessment) is inconclusive due to ar rhythmia . Left AtriumLA size is moderately enlarged (42-48 ml/m2) . Right VentricleRV chamber size is mildly enlarged by parasternal vi ews. Right Atrium The RA is not well visualized. Aortic Valve Mild AoV cusp thickening. Mitral Valve Mild MV leaflet thickening. Mi ld mitral annular calcification. Tr zully mitral regurgitation. Tricuspid ValveA trace of tricuspid regurgitation. Es timated peak systolic PA pressure is 30-35 mmHg . Pulmonic Valve PV is not well visualized; function appears normal by Doppler visualized. AortaAortic root size (SInus of Valsalva diameter) is no rmal . Proximal ascending aorta size mildly di lated . 3.8 cm PericardiumA trivial pericardial effusion is suspected an terior. An echo lucent space is noted consistent with pr ominent pericardial fat pad. IVC/SVC/PA/PV/PleuralThe estimated RA pressure by IVC dynamics 5-10mmHg . Chambers/Structures Left Atrium LA Volume: 132.04 mlLA Area: 35.01 cm^2 LA Vol. Index: 46 ml/m^2 Left Ventricle LVIDd: 4.65 cm LV Septum Diastolic: 1.29 cm LV PW Diastolic: 1.22 cm LVOT Diameter: 2.07 cm Aorta Ao Root S of Lizette.: 3.44 cmAscending Aorta: 3.77 cm Doppler/Quantitative Measurements Mitral Valve MV Peak E-Wave: 1.15 m/s MV Peak A-Wave: 0.3 m/s E/A Ratio: 3.85 Peak Gradient: 5.26 mmHg Deceleration Time: 189.2 msec MV Brendan. Peak: Tissue Doppler E' Septal Velocity: 0.1 m/s E' Lateral Velocity: 0.1 m/s Aortic Valve Peak Velocity: 1.65 m/sMean Velocity: 1.1 m/s Peak Gradient: 10.89 mmHgMean Gradient: 5.8 mmHg AV Area (continuity): 2.3 cm^2 AV VTI: 28.13 cm AV DVI: 0.68 LVOT Peak Velocity: 1 m/sPeak Gradient: 4.04 mmHg Mean Velocity: 0.69 m/s Mean Gradient: 2.16 mmHg LVOT Diameter: 2.07 cmLVOT VTI: 19.24 cm LVOT Area: 3.37 cm^2LVOT SV:64.72 ml LVOT CO: 6.86 l/min LVOT CI: 2.37 l/min/m^2 Tricuspid Valve TR Velocity: 2.56 m/s TR Gradient: 26.12 mmHg Procedure Note Interface, External Ris In - 01/21/2019 3:40 PM ROUNDING MACHINE TENDER Transthoracic Echocardiography Report (TTE) Demographics Patient Name AMINTA RAJAN Date of Study 01/20/2019 Gender Male Visit Number [id number] Race Room Number 7107 Number Date of 1940 Referring Physician Brooks Barrett 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 Clinical History AFIB, CHF, DVT/PE, HTN, Morbid obesity HGB 11.4 HCT 34 % Contrast Medium: Definity. Amount - 2 ml Height: 70 inches Weight: 195.95 kg (432 lbs) BSA: 2.9 m^2 BMI: 61.98 kg/m^2 HR: 106 bpm BP: 153/77 mmHg Summary TECHNICALLY DIFFICULT STUDY The left ventricle is chamber size (by PSLAX dimension) is normal (male - LVIDd 4.2-5.8cm) . Mild concentric LV hypertrophy. All of the LV segments contract normally . Global LV systolic function normal . Estimated LVEF by qualitative assessment is normal (60%) . LV endocardium is adequately visualized with IV ultrasound enhancing agent. Degree of diastolic dysfunction (LAP assessment) is inconclusive due to arrhythmia . Estimated peak systolic PA pressure is 30-35 mmHg . A trivial pericardial effusion is suspected anterior. Signature Findings Technical Quality: Technically difficult exam. Rhythm/BP Irregular rhythm during the exam. Atrial fibrillation with rapid ventricular response. Left Ventricle The left ventricle is chamber size (by PSLAX dimension) is normal (male - LVIDd 4.2-5.8cm) . Mild concentric LV hypertrophy. All of the LV segments contract normally . Global LV systolic function normal . Estimated LVEF by qualitative assessment is normal (60%) . LV endocardium is adequately visualized with IV ultrasound enhancing agent. Normal (cardiac index 2-3 L/min/m2) cardiac output state at rest is noted. Degree of diastolic dysfunction (LAP assessment) is inconclusive due to arrhythmia . Left Atrium LA size is moderately enlarged (42-48 ml/m2) . Right Ventricle RV chamber size is mildly enlarged by parasternal views. Right Atrium The RA is not well visualized. Aortic Valve Mild AoV cusp thickening. Mitral Valve Mild MV leaflet thickening. Mild mitral annular calcification. Trace mitral regurgitation. Tricuspid Valve A trace of tricuspid regurgitation. Estimated peak systolic PA pressure is 30-35 mmHg . Pulmonic Valve PV is not well visualized; function appears normal by Doppler visualized. Aorta Aortic root size (SInus of Valsalva diameter) is normal . Proximal ascending aorta size mildly dilated . 3.8 cm Pericardium A trivial pericardial effusion is suspected anterior. An echo lucent space is noted consistent with prominent pericardial fat pad. IVC/SVC/PA/PV/Pleural The estimated RA pressure by IVC dynamics 5-10mmHg . Chambers/Structures Left Atrium LA Volume: 132.04 ml LA Area: 35.01 cm^2 LA Vol. Index: 46 ml/m^2 Left Ventricle LVIDd: 4.65 cm LV Septum Diastolic: 1.29 cm LV PW Diastolic: 1.22 cm LVOT Diameter: 2.07 cm Aorta Ao Root S of Lizette.: 3.44 cm Ascending Aorta: 3.77 cm Doppler/Quantitative Measurements Mitral Valve MV Peak E-Wave: 1.15 m/s MV Peak A-Wave: 0.3 m/s E/A Ratio: 3.85 Peak Gradient: 5.26 mmHg Deceleration Time: 189.2 msec MV Brendan. Peak: Tissue Doppler E' Septal Velocity: 0.1 m/s E' Lateral Velocity: 0.1 m/s Aortic Valve Peak Velocity: 1.65 m/s Mean Velocity: 1.1 m/s Peak Gradient: 10.89 mmHg Mean Gradient: 5.8 mmHg AV Area (continuity): 2.3 cm^2 AV VTI: 28.13 cm AV DVI: 0.68 LVOT Peak Velocity: 1 m/s Peak Gradient: 4.04 mmHg Mean Velocity: 0.69 m/s Mean Gradient: 2.16 mmHg LVOT Diameter: 2.07 cm LVOT VTI: 19.24 cm LVOT Area: 3.37 cm^2 LVOT SV:64.72 ml LVOT CO: 6.86 l/min LVOT CI: 2.37 l/min/m^2 Tricuspid Valve TR Velocity: 2.56 m/s TR Gradient: 26.12 mmHg Performing Organization Address City/[facility]/[employer] I Phone Number [facility]ON CPACS Procalcitonin (01/20/2019 3:57 AM ROUNDING MACHINE TENDER) Procalcitonin 0.89 (H) <0.05 ng/mL [facility] Specimen Blood Narrative Performed At SEPSIS RISK (ng/mL) [facility] Low:0.05-0.50 Intermediate: 0.51-2.00 High: >=2.01 Performing Organization Address [facility]/Zipcode Phone Number [facility] [address] [place] [address] [place] TRANSFUSION SERVICE REPORT - SCAN (01/19/2019 6:02 PM ROUNDING MACHINE TENDER) Narrative Performed At Blood gas, arterial (01/19/2019 1:04 PM ROUNDING MACHINE TENDER)Only the most recent of2 resultswithin the time period is included. pH, Arterial 7.42 7.35 - 7.45 [facility] pCO2, Arterial 37 35 - 45 mmHg [facility] pO2, Arterial 155 (H) 80 - 90 mmHg [facility] O2 Sat, Arterial 99.0 (H) 96.0 - 97.0 % [facility] HCO3, Arterial 23 21 - 29 mmol/L [facility] Base Excess, Arterial -0.8 -2.0 - 3.0 mmol/L [facility] Patient Temperature 37.5 C [facility] FIO2 40.0 % [facility] Specimen Blood, Arterial Narrative Performed At For 30 minutes AFTER SBT [facility] Performing Organization Address City/State/Zipcode Phone Number [facility] [address] [place] [address] [place] US renal complete (01/19/2019 12:44 PM ROUNDING MACHINE TENDER) Specimen Narrative Performed At FINAL REPORT [facility] Ultrasound of the Kidneys Clinical History:KAYLAH Discussion: Sonographic evaluation of the kidneys is performed. Right kidney:11.6 x 5.3 x 5.8 cm, with cortical thickness of 1.4 cm.Normal cortical echogenicity.No mass.No shadowing calculus. No hydronephrosis. Left kidney: 13.3 x 7.3 x 6.8 cm, with cortical thickness of 2.3 cm. Normal cortical echogenicity.No mass.No shadowing calculus.No hydronephrosis. Limited doppler evaluation of bilateral main renal arteries and veins demonstrate patency. Bladder:Decompressed with Sims catheter. Impression: No hydronephrosis. Signed: Reymundo Waters MD Report Verified Date/Time:01/19/2019 17:24:49 Reading Location: [address] Ultrasound Reading Room Procedure Note Interface, External Ris In - 01/19/2019 5:26 PM ROUNDING MACHINE TENDER FINAL REPORT Ultrasound of the Kidneys Clinical History: KAYLAH Discussion: Sonographic evaluation of the kidneys is performed. Right kidney: 11.6 x 5.3 x 5.8 cm, with cortical thickness of 1.4 cm. Normal cortical echogenicity. No mass. No shadowing calculus. No hydronephrosis. Left kidney: 13.3 x 7.3 x 6.8 cm, with cortical thickness of 2.3 cm. Normal cortical echogenicity. No mass. No shadowing calculus. No hydronephrosis. Limited doppler evaluation of bilateral main renal arteries and veins demonstrate patency. Bladder: Decompressed with Sims catheter. Impression: No hydronephrosis. Signed: Reymundo Waters MD Report Verified Date/Time: 01/19/2019 17:24:49 Reading Location: [address] Ultrasound Reading Room Performing Organization Address City/State/Zipcode Phone Number [facility] XR chest 1 view portable / bedside (01/19/2019 10:55 AM ROUNDING MACHINE TENDER)Only the most recent of3 resultswithin the time period is included. Specimen Narrative Performed At FINAL REPORT [facility] Chest dated 01/19/2019 COMPARISON: January 11, 20172018 Clinical Information: pna Comment: Heart is enlarged. Pulmonary vasculature is indistinct. Interstitial disease is seen bilaterally suggestive of vascular congestion or pulmonary edema somewhat worse as compared to the prior study. Subsegmental atelectasis is seen in both lower lobes worse on the left. There is trace left pleural effusion. Endotracheal tube, nasogastric tube, and left PICC line present. Tip of the left PICC line is seen in the right brachiocephalic vein. Signed: Keya Harris MD Report Verified Date/Time:01/19/2019 11:12:39 Reading Location: [facility] Radiology Reading Room Procedure Note Interface, External Ris In - 01/19/2019 11:14 AM ROUNDING MACHINE TENDER FINAL REPORT Chest dated 01/19/2019 COMPARISON: January 11, 20172018 Clinical Information: pna Comment: Heart is enlarged. Pulmonary vasculature is indistinct. Interstitial disease is seen bilaterally suggestive of vascular congestion or pulmonary edema somewhat worse as compared to the prior study. Subsegmental atelectasis is seen in both lower lobes worse on the left. There is trace left pleural effusion. Endotracheal tube, nasogastric tube, and left PICC line present. Tip of the left PICC line is seen in the right brachiocephalic vein. Signed: Keya Harris MD Report Verified Date/Time: 01/19/2019 11:12:39 Reading Location: [facility] Radiology Reading Room Performing Organization Address City/[facility] Phone Number GE RIS Folate, RBC (01/19/2019 4:01 AM ROUNDING MACHINE TENDER)Only the most recent of2 resultswithin the time period is included. Folate, Rbc >1000 >280 ng/mL RBC [facility] Specimen Blood Narrative Performed At Performing Lab [facility] E[facility] [address] [address] Josselin Garcia MD, PhD, HAY Performing Organization Address City/[facility] Phone Number [place] [address] [place] [address] Vancomycin level, random (01/19/2019 4:01 AM ROUNDING MACHINE TENDER) Vancomycin Rm 14.6 ug/mL [facility] Specimen Blood Narrative Performed At Reference Range: No Normals [facility] Performing Organization Address City/[facility]/Zipcode Phone Number [address] [address] CENTER Body fluid cell count with differential (01/18/2019 4:35 PM ROUNDING MACHINE TENDER) Appearance Hazy (A) Clear [facility] Color [place] (A) Colorless, Straw [facility] RBCs 3,450 (H) <=1 /cu mm [facility] Adjusted WBC Count 145 (H) <=5 /cu mm [facility] Lining Cells 0 <=1 /cu mm [facility] % Segs 85 % [facility] % Lymphs 0 % [facility] % Monos 15 % [facility] % Eos 0 % [facility] % Baso 0 % [facility] Container Body Fluid EDTA Tube [facility] Specimen BAL Performing Organization Address City/[facility] Phone Number [address] [address] [place] Bronchial culture + gram stain (01/18/2019 4:34 PM ROUNDING MACHINE TENDER) Result <1+ Normal respiratory jeana [facility] Gram Stain Result No White blood cells seen [facility] Gram Stain Result No organisms seen [facility] Specimen BAL Performing Organization Address City/[facility] Phone Number [address] [address] [phone] [place] Urea Nitrogen, random urine (01/18/2019 1:57 PM ROUNDING MACHINE TENDER) Urea Nitrogen, Ur 603 mg/dL [facility] Specimen Urine Narrative Performed At Reference Range: No Normals [facility] Performing Organization Address City/[facility]/Zipcode Phone Number [address] [address] [phone] [place] Potassium, random urine (01/18/2019 1:57 PM ROUNDING MACHINE TENDER) Potassium Urine 21.6 meq/L [facility] Specimen Urine Narrative Performed At Reference Range: No Normals [facility] Performing Organization Address City/[facility]/Zipcode Phone Number [facility] [address] [place] [address] [place] PTH, intact (01/18/2019 1:57 PM ROUNDING MACHINE TENDER) PTH 251.9 (H) 8.5 - 72.5 pg/mL [facility] Specimen Blood Performing Organization Address [facility]/Zipcode Phone Number [facility] [address] [place] [address] [place] Sputum Culture + Gram Stain (01/18/2019 10:30 AM ROUNDING MACHINE TENDER)Only the most recent of2 resultswithin the time period is included. Result See comment [facility] Gram Stain Result <1+ WBCs [facility] Gram Stain Result 0-5 epithelial cells [facility] Gram Stain Result No organisms seen [facility] Specimen Sputum Narrative Performed At <1+ yeast [facility] 1+ Normal respiratory jeana present Performing Organization Address [facility] Phone Number [address] [address] [place] MRSA screen (01/18/2019 10:30 AM ROUNDING MACHINE TENDER) Result No MRSA isolated [facility] Specimen Nasal Performing Organization Address [facility]/Zipcode Phone Number [address] [address] [phone] [place] Venous doppler legs bilateral (01/18/2019 9:05 AM ROUNDING MACHINE TENDER) Ejection Fraction [facility]CHO [facility]ART[facility] Specimen Impressions Performed At Right Impression [facility] 1. There is no deep venous obstruction in the femoral, popliteal or posterior tibial veins where visualized. 2. There is no superficial venous obstruction in the great saphenous vein where visualized. 3. The common femoral, profunda femoral and peroneal veins could not be visualized. Left Impression 1. There is no deep venous obstruction in the femoral, popliteal or posterior tibial veins where visualized. 2. There is no superficial venous obstruction in the great saphenous vein where visualized. 3. The common femoral, profunda femoral and peroneal veins could not be visualized. Conclusions Summary Venous duplex imaging and compression of the bilateral lower extremities were performed. The veins were technically difficult to visualize due to edema, patient body habitus and invasive lines in the right groin. The bilateral venous systems were patent and compressible with no evidence of thrombus where visualized. The venous Doppler waveforms were phasic with respiration. Signature Velocities are measured in cm/s ; Diameters are measured in cm Narrative Performed At PV LAB - Lower Extremities DVT Study [facility] Demographics Patient NameAMINTA RAJAN Date of Study 01/18/2019 Age 78 Visit [id number] GenderMale Date of 1940 Referring Brooks Barrett Room Number [id number] Physician [employer]oline Plant Operator Vika Gaona MD RVTPhysician Procedure Type of Study: Veins: Lower Extremities DVT Study, VENOUS DOPPLER LEG, BILATERAL. Indications for Study:Swelling. Patient Status:Routine. Study Location:Portable. Technical Quality:Technically Difficult. Risk Factors History of Disease + +----+ + !Diagnosis !Date!Comments ! + +----+ + !History/Risk!!morbid obesity, chf, htn, lymphedema, h/o dvt ! !Factors:!!and pe ! + +----+ + Procedure Note Interface, External Ris In - 01/20/2019 9:19 AM ROUNDING MACHINE TENDER [facility] - Lower Extremities DVT Study Demographics Patient Name AMINTA RAJAN Date of Study 01/18/2019 Age 78 Visit Number [id number] Gender Male Accession Number [id number] Date of 1940 Referring Brooks Barrett Room Number 7107 Physician Gasoline Plant Operator Vika Haynes Interpreting Brooklynn Gaona MD RVT Physician Procedure Type of Study: Veins: Lower Extremities DVT Study, VENOUS DOPPLER LEG, BILATERAL. Indications for Study:Swelling. Patient Status:Routine. Study Location:Portable. Technical Quality:Technically Difficult. Risk Factors History of Disease + +----+ + !Diagnosis !Date!Comments ! + +----+ + !History/Risk ! !morbid obesity, chf, htn, lymphedema, h/o dvt ! !Factors: ! !and pe ! + +----+ + Impressions Right Impression 1. There is no deep venous obstruction in the femoral, popliteal or posterior tibial veins where visualized. 2. There is no superficial venous obstruction in the great saphenous vein where visualized. 3. The common femoral, profunda femoral and peroneal veins could not be visualized. Left Impression 1. There is no deep venous obstruction in the femoral, popliteal or posterior tibial veins where visualized. 2. There is no superficial venous obstruction in the great saphenous vein where visualized. 3. The common femoral, profunda femoral and peroneal veins could not be visualized. Conclusions Summary Venous duplex imaging and compression of the bilateral lower extremities were performed. The veins were technically difficult to visualize due to edema, patient body habitus and invasive lines in the right groin. The bilateral venous systems were patent and compressible with no evidence of thrombus where visualized. The venous Doppler waveforms were phasic with respiration. Signature Velocities are measured in cm/s ; Diameters are measured in cm Performing Organization Address City/State/Zipcode Phone Number [facility] Venous doppler arms bilateral (01/18/2019 9:05 AM ROUNDING MACHINE TENDER) Ejection Fraction [facility] Specimen Impressions Performed At Right Impression [facility] HEART[facility] 1. There is no deep venous obstruction in the jugular, subclavian, axillary, brachial, radial or ulnar veins. 2. There is no superficial venous obstruction in the cephalic or basilic veins. Left Impression 1. There is no deep venous obstruction in the jugular, subclavian, axillary, brachial, radial or ulnar veins. 2. There is no superficial venous obstruction in the cephalic or basilic veins. Conclusions Summary Venous duplex imaging and compression of the bilateral upper extremities was performed. The veins were technically difficult to visualize due to edema and patient body habitus. The bilateral venous systems were patent and compressible with no evidence of thrombus where visualized. Signature Velocities are measured in cm/s ; Diameters are measured in cm Narrative Performed At [facility] - Upper Extremities Veins [facility] Demographics Patient AMINTA Mccartney Date of Study 01/18/2019 Age 78 Visit [id number] GenderMale Date of 1940 Referring Brooks Barrett Room Number 7107 Physician Gasoline Plant Operator Vika Gaona MD RVTPhysician Procedure Type of Study: Veins: Upper Extremities Veins, VENOUS DOPPLER ARMS, BILATERAL. Indications for Study:Swelling. Patient Status:Routine. Study Location:Portable. Technical Quality:Technically Difficult. Risk Factors History of Disease + +----+ + !Diagnosis !Date!Comments ! + +----+ + !History/Risk!!morbid obesity, chf, htn, lymphedema, h/o dvt ! !Factors:!!and pe ! + +----+ + Procedure Note Interface, External Ris In - 01/20/2019 9:19 AM ROUNDING MACHINE TENDER PV [facility] - Upper Extremities Veins Demographics Patient Name AMINTA RAJAN Date of Study 01/18/2019 Age 78 Visit Number [id number] Gender Male Accession Number [id number] Date of 1940 Referring Brooks Barrett Room Number 7107 Physician Gasoline Plant Operator Vika Haynes Interpreting Brooklynn Gaona MD RVT Physician Procedure Type of Study: Veins: Upper Extremities Veins, VENOUS DOPPLER ARMS, BILATERAL. Indications for Study:Swelling. Patient Status:Routine. Study Location:Portable. Technical Quality:Technically Difficult. Risk Factors History of Disease + +----+ + !Diagnosis !Date!Comments ! + +----+ + !History/Risk ! !morbid obesity, chf, htn, lymphedema, h/o dvt ! !Factors: ! !and pe ! + +----+ + Impressions Right Impression 1. There is no deep venous obstruction in the jugular, subclavian, axillary, brachial, radial or ulnar veins. 2. There is no superficial venous obstruction in the cephalic or basilic veins. Left Impression 1. There is no deep venous obstruction in the jugular, subclavian, axillary, brachial, radial or ulnar veins. 2. There is no superficial venous obstruction in the cephalic or basilic veins. Conclusions Summary Venous duplex imaging and compression of the bilateral upper extremities was performed. The veins were technically difficult to visualize due to edema and patient body habitus. The bilateral venous systems were patent and compressible with no evidence of thrombus where visualized. Signature Velocities are measured in cm/s ; Diameters are measured in cm Performing Organization Address City/State/Zipcode Phone Number [facility] XR abdomen / KUB 1 view (01/18/2019 5:28 AM ROUNDING MACHINE TENDER) Specimen Narrative Performed At FINAL REPORT GE [facility] Abdomen date 01/18/2019 Comment:Frontal view of the abdomen demonstrates a nasogastric tube present with tip noted in the body of the stomach. Signed: Keya Harris MD Report Verified Date/Time:01/18/2019 08:28:12 Reading Location: [facility] Radiology Reading Room Procedure Note Interface, External Ris In - 01/18/2019 8:30 AM ROUNDING MACHINE TENDER FINAL REPORT Abdomen date 01/18/2019 Comment: Frontal view of the abdomen demonstrates a nasogastric tube present with tip noted in the body of the stomach. Signed: Keya Harris MD Report Verified Date/Time: 01/18/2019 08:28:12 Reading Location: [facility] Radiology Reading Room Performing Organization Address City/[facility] Phone Number GE RIS ABORH, manual (01/18/2019 4:28 AM ROUNDING MACHINE TENDER) ABO Grouping O [facility] Rh Factor POS [facility] Specimen Blood Performing Organization Address [facility] Phone Number [address] [address] Iron, TIBC, % sat. (without ferritin) (01/18/2019 3:17 AM ROUNDING MACHINE TENDER) Iron 59.0 40.0 - 160.0 ug/dL [facility] TIBC 160 (L) 250 - 450 ug/dL [facility] Iron % Saturation 37 20 - 55 % [facility] Specimen Blood Narrative Performed At Next blood draw [facility] Next blood draw Next blood draw Performing Organization Address City/[facility]/Zipcode Phone Number [address] [address] CENTER Type and screen (01/18/2019 3:17 AM ROUNDING MACHINE TENDER) Ab Scrn NEGATIVEComment: IS: all 0 [facility] cc: all 2+ by PEG CENTER ABO Grouping O [facility] Rh Factor POS [facility] Specimen Blood Performing Organization Address City/[facility] Phone Number [address] [address] Sodium, random urine (01/18/2019 2:24 AM ROUNDING MACHINE TENDER) Sodium Urine 30 meq/L [facility] Specimen Urine Narrative Performed At Reference Range: No Normals [facility] Performing Organization Address [facility] Phone Number [address] [address] [phone] [place] Protein, random urine (01/18/2019 2:24 AM ROUNDING MACHINE TENDER) Protein, Urine 23 (H) 0 - 14 mg/dL [facility] Specimen Urine Performing Organization Address [facility] Phone Number [address] [address] [place] Creatinine, random urine (01/18/2019 2:24 AM ROUNDING MACHINE TENDER) Creatinine, Ur 82.0 mg/dL [facility] Specimen Urine Narrative Performed At Reference Range: No Normals [facility] Performing Organization Address City/[facility] Phone Number [address] [address] CENTER Blood Culture - Routine (Left Venipuncture) (01/18/2019 2:20 AM ROUNDING MACHINE TENDER)Only the most recent of2 resultswithin the time period is included. Result No growth in 5 days [facility] Specimen Blood Performing Organization Address City/[facility] Phone Number [address] [address] C[place] B-type Natriuretic Factor (BNP) (01/18/2019 2:20 AM ROUNDING MACHINE TENDER) BNP 114 (H) 0 - 100 pg/mL [facility] Specimen Blood Performing Organization Address [facility] Phone Number [address] [address] [place] Lactic acid, arterial, whole blood (01/18/2019 2:11 AM ROUNDING MACHINE TENDER) Lactate, Art 0.7Comment: Specimen 0.5 - 2.2 mmol/L [facility] slightly hemolyzed [facility] Specimen Blood, Arterial Performing Organization Address [facility] Phone Number [address] [address] [phone] [place] Comprehensive metabolic panel (01/18/2019 2:11 AM ROUNDING MACHINE TENDER) Protein, Total 6.0 6.0 - 8.3 gm/dL [facility] Albumin 2.7 (L) 3.5 - 5.0 g/dL [facility] Alkaline Phosphatase 83 40 - 150 U/L [facility] Total Bilirubin 1.0 0.2 - 1.2 mg/dL [facility] Sodium 136 136 - 145 meq/L [facility] Potassium 4.3 3.5 - 5.1 meq/L [facility] Chloride 104 98 - 107 meq/L [facility] CO2 20 (L) 22 - 29 meq/L [facility] BUN 80 (H) 7 - 21 mg/dL [facility] Creatinine 3.90 (H) 0.57 - 1.25 mg/dL [facility] Glucose 151 (H) 70 - 105 mg/dL [facility] Calcium 8.2 (L) 8.4 - 10.2 mg/dL [facility] AST 26 5 - 34 U/L [facility] ALT 21 6 - 55 U/L [facility] EGFR 15Comment: ESTIMATED GFR mL/min/1.[address] [facility] IS NOT ACCURATE [facility] CREATININE CLEARANCE IN PREDICTING GLOMERULAR FILTRATION RATE. ESTIMATED GFR IS NOT APPLICABLE FOR DIALYSIS PATIENTS. Specimen Blood Performing Organization Address City/State/Zipcode Phone Number [facility] [address] [place] [address] [phone] CENTER after 07/11/2018 Insurance Payer Benefit Plan / Group Subscriber ID Type Phone Address [facility] (NON-CONTRACTED) xxxxxxxxxxx Other Govt ([facility] [place], [facility], etc.) Advance Directives Patient has advance care planning documents, and code status on file. For more information, please contact:[facility] [place] [address] [phone] Code Status Date Activated Date Inactivated Comments Partial Code 01/25/2019 1:33 PM 01/30/2019 11:47 PM This code status was determined by: Patient Drug Protocol After Arrest Occurs? Yes Mechanical Ventilation with Yes Intubation? Bag/Mask? Yes Internal/External Pacemaker? Yes Transfer to Critical Care? Yes Chest Compressions? No Patient explicitly denies wanted chest compressions Defibrillation/Cardioversion? Yes Full Code 01/18/2019 1:18 AM 01/25/2019 1:33 PM This code status was determined by: Patient
--- OUTSIDE RECORDS SUMMARY | 2019-07-12 10:57 | XMS REPORT ---
:1940 Author Organization [facility] Address [address] [place] [address] Care Team Providers Name Role Phone LOUISA TEN BRITTNEY Unavailable Unavailable Problems This patient has no known problems. Allergies, Adverse Reactions, Alerts This patient has no known allergies or adverse reactions. Medications This patient has no known medications. Results Test Description Test Time Test Comments Text Results Atomic Results Result Comments POCT-GLUCOSE METER 2019-01-30 17:08:00 Test Item Value Reference Range Comments POC-GLUCOSE METER (BEAKER) (test 171 mg/dL 70-110 TESTED AT [address] tdiv=2924) [facility] [address] POCT-GLUCOSE [id number] 12:25:00 Test Item Value Reference Range Comments POC-GLUCOSE METER (BEAKER) 242 mg/dL 70-110 TESTED AT [address] (test pseh=0620) [facility] [address] POCT-GLUCOSE [id number] 09:09:00 Test Item Value Reference Range Comments POC-GLUCOSE METER (BEAKER) 181 mg/dL 70-110 TESTED AT [address] (test mrse=9660) [place] [address] [id number] 05:31:00 Test Item Value Reference Range Comments MAGNESIUM (BEAKER) (test hsuu=600) 1.7 mg/dL 1.6-2.6 BASIC METABOLIC [id number] 05:31:00 Test Item Value Reference Range Comments SODIUM (BEAKER) (test 137 meq/L 136-145 sqrc=008) POTASSIUM (BEAKER) (test 4.2 meq/L 3.5-5.1 vodr=951) CHLORIDE (BEAKER) (test 100 meq/L 98-107 jtxi=188) CO2 (BEAKER) (test 27 meq/L 22-29 eird=487) BLOOD UREA NITROGEN 49 mg/dL 7-21 (BEAKER) (test xkmr=197) CREATININE (BEAKER) (test 1.73 mg/dL 0.57-1.25 solt=225) GLUCOSE RANDOM (BEAKER) 192 mg/dL 70-105 (test ofok=172) CALCIUM (BEAKER) (test 9.7 mg/dL 8.4-10.2 zfem=865) EGFR (BEAKER) (test 39 mL/min/1.73 sq m ESTIMATED GFR IS NOT sdwq=5144) ACCURATE CREATININE CLEARANCE IN PREDICTING GLOMERULAR FILTRATION RATE. ESTIMATED GFR IS NOT APPLICABLE FOR DIALYSIS PATIENTS. PROTHROMBIN [id number] 05:25:00 Test Item Value Reference Range Comments PROTIME (BEAKER) (test jgrj=952) 32.7 seconds 11.7-14.7 INR (BEAKER) (test hvlm=342) 3.2 <=5.9 RECOMMENDED COUMADIN/WARFARIN INR THERAPY RANGESSTANDARD DOSE: 2.0 - 3.0 Includes: PROPHYLAXIS forvenous thrombosis, systemic embolization; TREATMENT for venous thrombosis and/or pulmonary embolus.HIGH RISK: Target INR is 2.5-3.5 for patients with mechanical heart valves.While on warfarin.CBC W/PLT COUNT &amp ; AUTO [id number] 05:13:00 Test Item Value Reference Range Comments WHITE BLOOD CELL COUNT (BEAKER) (test ehnd=688) 6.8 K/ L 3.5-10.5 RED BLOOD CELL COUNT (BEAKER) (test ruym=844) 3.42 M/ L 4.63-6.08 HEMOGLOBIN (BEAKER) (test tqtl=274) 10.7 GM/DL 13.7-17.5 HEMATOCRIT (BEAKER) (test skuc=839) 34.5 % 40.1-51.0 MEAN CORPUSCULAR VOLUME (BEAKER) (test pzoe=219) 100.9 fL 79.0-92.2 MEAN CORPUSCULAR HEMOGLOBIN (BEAKER) (test 31.3 pg 25.7-32.2 pcme=276) MEAN CORPUSCULAR HEMOGLOBIN CONC (BEAKER) (test 31.0 GM/DL 32.3-36.5 qylo=495) RED CELL DISTRIBUTION WIDTH (BEAKER) (test 14.0 % 11.6-14.4 uxem=845) PLATELET COUNT (BEAKER) (test llnp=925) 196 K/CU MM 150-450 MEAN PLATELET VOLUME (BEAKER) (test ivcs=257) 10.5 fL 9.4-12.4 NUCLEATED RED BLOOD CELLS (BEAKER) (test 0 /100 WBC 0-0 hppq=639) NEUTROPHILS RELATIVE PERCENT (BEAKER) (test 56 % eibl=447) LYMPHOCYTES RELATIVE PERCENT (BEAKER) (test 24 % xmsg=501) MONOCYTES RELATIVE PERCENT (BEAKER) (test 14 % vrli=828) EOSINOPHILS RELATIVE PERCENT (BEAKER) (test 4 % nxig=494) BASOPHILS RELATIVE PERCENT (BEAKER) (test 1 % sqzt=002) NEUTROPHILS ABSOLUTE COUNT (BEAKER) (test 3.81 K/ L 1.78-5.38 mzbb=863) LYMPHOCYTES ABSOLUTE COUNT (BEAKER) (test 1.64 K/ L 1.32-3.57 offm=473) MONOCYTES ABSOLUTE COUNT (BEAKER) (test 0.98 K/ L 0.30-0.82 kvyy=540) EOSINOPHILS ABSOLUTE COUNT (BEAKER) (test 0.29 K/ L 0.04-0.54 psiz=353) BASOPHILS ABSOLUTE COUNT (BEAKER) (test 0.05 K/ L 0.01-0.08 euir=609) IMMATURE GRANULOCYTES-RELATIVE PERCENT (BEAKER) 1 % 0-1 (test efvg=5686) POCT-GLUCOSE [id number] 22:51:00 Test Item Value Reference Range Comments POC-GLUCOSE METER (BEAKER) 227 mg/dL 70-110 TESTED AT [address] (test pixy=3953) [place] [id number] POCT-GLUCOSE [id number] 17:24:00 Test Item Value Reference Range Comments POC-GLUCOSE METER (BEAKER) 236 mg/dL 70-110 TESTED AT [place] [id number] [facility] (test lrls=7449) [facility] [address] URINALYSIS W/ [id number] 14:49:00 Test Item Value Reference Range Comments COLOR (BEAKER) (test youm=600) Light Yellow CLARITY (BEAKER) (test eons=154) Hazy SPECIFIC GRAVITY UA (BEAKER) (test ieyb=882) 1.010 1.001-1.035 PH UA (BEAKER) (test aaaz=301) 8.0 5.0-8.0 PROTEIN UA (BEAKER) (test rbad=791) 10 mg/dL Negative GLUCOSE UA (BEAKER) (test abhp=471) Negative Negative KETONES UA (BEAKER) (test yptc=569) Negative Negative BILIRUBIN UA (BEAKER) (test omvb=081) Negative Negative BLOOD UA (BEAKER) (test jmnh=637) Small Negative NITRITE UA (BEAKER) (test gaji=611) Negative Negative LEUKOCYTE ESTERASE UA (BEAKER) (test nrxz=477) Large Negative UROBILINOGEN UA (BEAKER) (test ijkk=099) 0.2 mg/dL 0.2-1.0 RBC UA (BEAKER) (test porc=783) 0 /HPF WBC UA (BEAKER) (test exhq=335) 64 /HPF BACTERIA (BEAKER) (test thqh=156) Moderate TRIPLE PHOSPHATE CRYSTALS (BEAKER) (test Few cgja=9509) YEAST (BEAKER) (test alzd=5858) Few SOURCE(BEAKER) (test ypva=1298) Urine, Hannah POCT-GLUCOSE [id number] 13:02:00 Test Item Value Reference Range Comments POC-GLUCOSE METER (BEAKER) 180 mg/dL 70-110 TESTED AT [address] (test emjl=1604) [facility] [address] POCT-GLUCOSE [id number] 09:36:00 Test Item Value Reference Range Comments POC-GLUCOSE METER (BEAKER) 200 mg/dL 70-110 TESTED AT [address] (test zjyx=2079) [facility] [address] PROTHROMBIN [id number] 07:20:00 Test Item Value Reference Range Comments PROTIME (BEAKER) (test pefu=381) 29.2 seconds 11.7-14.7 INR (BEAKER) (test phrn=463) 2.8 <=5.9 RECOMMENDED COUMADIN/WARFARIN INR THERAPY RANGESSTANDARD DOSE: 2.0 - 3.0 Includes: PROPHYLAXIS forvenous thrombosis, systemic embolization; TREATMENT for venous thrombosis and/or pulmonary embolus.HIGH RISK: Target INR is 2.5-3.5 for patients with mechanical heart valves.While on warfarin.[id number] 07:16:00 Test Item Value Reference Range Comments MAGNESIUM (BEAKER) (test eirr=940) 1.8 mg/dL 1.6-2.6 BASIC METABOLIC [id number] 07:16:00 Test Item Value Reference Range Comments SODIUM (BEAKER) (test 138 meq/L 136-145 hsvz=945) POTASSIUM (BEAKER) (test 4.0 meq/L 3.5-5.1 dqch=598) CHLORIDE (BEAKER) (test 100 meq/L 98-107 polg=857) CO2 (BEAKER) (test 28 meq/L 22-29 yddr=905) BLOOD UREA NITROGEN 46 mg/dL 7-21 (BEAKER) (test klfm=632) CREATININE (BEAKER) (test 1.88 mg/dL 0.57-1.25 vttp=603) GLUCOSE RANDOM (BEAKER) 177 mg/dL 70-105 (test lhol=166) CALCIUM (BEAKER) (test 9.5 mg/dL 8.4-10.2 mgum=032) EGFR (BEAKER) (test 35 mL/min/1.73 sq m ESTIMATED GFR IS NOT djsx=1591) ACCURATE CREATININE CLEARANCE IN PREDICTING GLOMERULAR FILTRATION RATE. ESTIMATED GFR IS NOT APPLICABLE FOR DIALYSIS PATIENTS. CBC W/PLT COUNT & AUTO [id number] 07:07:00 Test Item Value Reference Range Comments WHITE BLOOD CELL COUNT (BEAKER) (test kyez=001) 6.8 K/ L 3.5-10.5 RED BLOOD CELL COUNT (BEAKER) (test tjjw=153) 3.48 M/ L 4.63-6.08 HEMOGLOBIN (BEAKER) (test hter=659) 11.1 GM/DL 13.7-17.5 HEMATOCRIT (BEAKER) (test jpbp=650) 35.0 % 40.1-51.0 MEAN CORPUSCULAR VOLUME (BEAKER) (test sima=125) 100.6 fL 79.0-92.2 MEAN CORPUSCULAR HEMOGLOBIN (BEAKER) (test 31.9 pg 25.7-32.2 olhi=162) MEAN CORPUSCULAR HEMOGLOBIN CONC (BEAKER) (test 31.7 GM/DL 32.3-36.5 gyim=663) RED CELL DISTRIBUTION WIDTH (BEAKER) (test 14.3 % 11.6-14.4 eqpu=509) PLATELET COUNT (BEAKER) (test otpn=138) 205 K/CU MM 150-450 MEAN PLATELET VOLUME (BEAKER) (test ykej=456) 10.3 fL 9.4-12.4 NUCLEATED RED BLOOD CELLS (BEAKER) (test 0 /100 WBC 0-0 keeb=117) NEUTROPHILS RELATIVE PERCENT (BEAKER) (test 57 % zayz=314) LYMPHOCYTES RELATIVE PERCENT (BEAKER) (test 24 % lomc=174) MONOCYTES RELATIVE PERCENT (BEAKER) (test 15 % xulu=696) EOSINOPHILS RELATIVE PERCENT (BEAKER) (test 3 % vxmi=544) BASOPHILS RELATIVE PERCENT (BEAKER) (test 1 % ykii=848) NEUTROPHILS ABSOLUTE COUNT (BEAKER) (test 3.86 K/ L 1.78-5.38 mdcs=587) LYMPHOCYTES ABSOLUTE COUNT (BEAKER) (test 1.61 K/ L 1.32-3.57 lpnu=388) MONOCYTES ABSOLUTE COUNT (BEAKER) (test 1.00 K/ L 0.30-0.82 ndxh=198) EOSINOPHILS ABSOLUTE COUNT (BEAKER) (test 0.23 K/ L 0.04-0.54 iplg=414) BASOPHILS ABSOLUTE COUNT (BEAKER) (test 0.05 K/ L 0.01-0.08 mlxr=008) IMMATURE GRANULOCYTES-RELATIVE PERCENT (BEAKER) 0 % 0-1 (test kfzs=8756) POCT-GLUCOSE [id number] 22:06:00 Test Item Value Reference Range Comments POC-GLUCOSE METER (BEAKER) 222 mg/dL 70-110 TESTED AT [address] (test elky=4418) [place] [id number] POCT-GLUCOSE [id number] 18:33:00 Test Item Value Reference Range Comments POC-GLUCOSE METER (BEAKER) 227 mg/dL 70-110 TESTED AT [address] (test pbqn=5969) [place] [id number] URINALYSIS W/ REFLEX URINE [id number] 14:23:00 Test Item Value Reference Range Comments COLOR (BEAKER) (test efec=556) Yellow CLARITY (BEAKER) (test tmsl=682) Cloudy SPECIFIC GRAVITY UA (BEAKER) (test lywn=955) 1.012 1.001-1.035 PH UA (BEAKER) (test pdpj=167) 8.5 5.0-8.0 PROTEIN UA (BEAKER) (test lxug=424) 100 mg/dL Negative GLUCOSE UA (BEAKER) (test iafy=750) Negative Negative KETONES UA (BEAKER) (test ujqf=635) Negative Negative BILIRUBIN UA (BEAKER) (test qgaj=582) Negative Negative BLOOD UA (BEAKER) (test hekl=818) Trace Negative NITRITE UA (BEAKER) (test fatm=988) Negative Negative LEUKOCYTE ESTERASE UA (BEAKER) (test uclz=597) Large Negative UROBILINOGEN UA (BEAKER) (test kvbw=285) 0.2 mg/dL 0.2-1.0 RBC UA (BEAKER) (test jmaq=751) 28 /HPF WBC UA (BEAKER) (test htza=237) 112 /HPF BACTERIA (BEAKER) (test moez=359) Many MUCUS (BEAKER) (test crrx=1970) Few TRIPLE PHOSPHATE CRYSTALS (BEAKER) (test Few hkeu=7883) YEAST (BEAKER) (test crum=7274) Many SOURCE(BEAKER) (test mppg=0188) POCT-GLUCOSE [id number] 12:34:00 Test Item Value Reference Range Comments POC-GLUCOSE METER (BEAKER) 273 mg/dL 70-110 TESTED AT [address] (test xbws=4033) [place] [id number] POCT-GLUCOSE [id number] 09:09:00 Test Item Value Reference Range Comments POC-GLUCOSE METER (BEAKER) 186 mg/dL 70-110 TESTED AT [address] (test gkiq=2547) [place] [address] [id number] 07:43:00 Test Item Value Reference Range Comments MAGNESIUM (BEAKER) (test angy=115) 1.6 mg/dL 1.6-2.6 BASIC METABOLIC [id number] 07:43:00 Test Item Value Reference Range Comments SODIUM (BEAKER) (test 138 meq/L 136-145 qhcm=663) POTASSIUM (BEAKER) (test 3.7 meq/L 3.5-5.1 prhc=224) CHLORIDE (BEAKER) (test 98 meq/L 98-107 igck=241) CO2 (BEAKER) (test 30 meq/L 22-29 odjv=394) BLOOD UREA NITROGEN 45 mg/dL 7-21 (BEAKER) (test qwlh=667) CREATININE (BEAKER) (test 1.89 mg/dL 0.57-1.25 vddr=349) GLUCOSE RANDOM (BEAKER) 167 mg/dL 70-105 (test uchf=229) CALCIUM (BEAKER) (test 9.4 mg/dL 8.4-10.2 ajvg=440) EGFR (BEAKER) (test 35 mL/min/1.73 sq m ESTIMATED GFR IS NOT ruxd=6587) ACCURATE CREATININE CLEARANCE IN PREDICTING GLOMERULAR FILTRATION RATE. ESTIMATED GFR IS NOT APPLICABLE FOR DIALYSIS PATIENTS. [id number] 07:30:00 Test Item Value Reference Range Comments PARTIAL THROMBOPLASTIN TIME (BEAKER) (test 95.4 seconds 22.5-36.0 bkhs=136) While on warfarin.PROTHROMBIN TIME/[id number] 07:28:00 Test Item Value Reference Range Comments PROTIME (BEAKER) (test hmfx=061) 25.1 seconds 11.7-14.7 INR (BEAKER) (test albf=146) 2.3 <=5.9 RECOMMENDED COUMADIN/WARFARIN INR THERAPY RANGESSTANDARD DOSE: 2.0 - 3.0 Includes: PROPHYLAXIS forvenous thrombosis, systemic embolization; TREATMENT for venous thrombosis and/or pulmonary embolus.HIGH RISK: Target INR is 2.5-3.5 for patients with mechanical heart valves.While on warfarin.[id number] 23:08 :00 Test Item Value Reference Range Comments PARTIAL THROMBOPLASTIN TIME (BEAKER) (test 66.2 seconds 22.5-36.0 ofca=547) POCT-GLUCOSE [id number] 22:14:00 Test Item Value Reference Range Comments POC-GLUCOSE METER (BEAKER) 224 mg/dL 70-110 TESTED AT [address] (test unbj=1391) [place] [address] [id number] 19:24:00 Test Item Value Reference Range Comments PARTIAL THROMBOPLASTIN TIME (BEAKER) (test 121.7 seconds 22.5-36.0 nvgz=486) POCT-GLUCOSE [id number] 17:07:00 Test Item Value Reference Range Comments POC-GLUCOSE METER (BEAKER) 191 mg/dL 70-110 TESTED AT [address] (test duqw=5642) [place] [address] [id number] 12:57:00 Test Item Value Reference Range Comments PARTIAL THROMBOPLASTIN TIME (BEAKER) (test 95.5 seconds 22.5-36.0 ckhu=955) POCT-GLUCOSE [id number] 12:11:00 Test Item Value Reference Range Comments POC-GLUCOSE METER (BEAKER) 217 mg/dL 70-110 TESTED AT [facility] [address] [facility] (test wnom=5043) [facility] [address] POCT-GLUCOSE [id number] 08:51:00 Test Item Value Reference Range Comments POC-GLUCOSE METER (BEAKER) 185 mg/dL 70-110 TESTED AT [place] [id number] [facility] (test lsdt=2316) [facility] [address] [id number] 05:36:00 Test Item Value Reference Range Comments PARTIAL THROMBOPLASTIN TIME (BEAKER) (test 117.7 seconds 22.5-36.0 wpll=858) While on warfarin.[id number] 05:06:00 Test Item Value Reference Range Comments MAGNESIUM (BEAKER) (test pqfs=441) 1.6 mg/dL 1.6-2.6 BASIC METABOLIC [id number] 05:06:00 Test Item Value Reference Range Comments SODIUM (BEAKER) (test 140 meq/L 136-145 nucl=161) POTASSIUM (BEAKER) (test 3.6 meq/L 3.5-5.1 tgeo=988) CHLORIDE (BEAKER) (test 99 meq/L 98-107 fmae=059) CO2 (BEAKER) (test 30 meq/L 22-29 nmrg=246) BLOOD UREA NITROGEN 48 mg/dL 7-21 (BEAKER) (test ogtp=120) CREATININE (BEAKER) (test 2.09 mg/dL 0.57-1.25 isvo=390) GLUCOSE RANDOM (BEAKER) 179 mg/dL 70-105 (test kkje=231) CALCIUM (BEAKER) (test 9.5 mg/dL 8.4-10.2 mbrq=424) EGFR (BEAKER) (test 31 mL/min/1.73 sq m ESTIMATED GFR IS NOT muox=3964) ACCURATE CREATININE CLEARANCE IN PREDICTING GLOMERULAR FILTRATION RATE. ESTIMATED GFR IS NOT APPLICABLE FOR DIALYSIS PATIENTS. PROTHROMBIN [id number] 05:01:00 Test Item Value Reference Range Comments PROTIME (BEAKER) (test glbv=663) 21.5 seconds 11.7-14.7 INR (BEAKER) (test shxz=582) 1.8 <=5.9 RECOMMENDED COUMADIN/WARFARIN INR THERAPY RANGESSTANDARD DOSE: 2.0 - 3.0 Includes: PROPHYLAXIS forvenous thrombosis, systemic embolization; TREATMENT for venous thrombosis and/or pulmonary embolus.HIGH RISK: Target INR is 2.5-3.5 for patients with mechanical heart valves.While on warfarin.POCT-GLUCOSE [id number] 21:46:00 Test Item Value Reference Range Comments POC-GLUCOSE METER (BEAKER) 200 mg/dL 70-110 TESTED AT [address] (test mtgx=2848) [place] [address] POCT-GLUCOSE [id number] 17:51:00 Test Item Value Reference Range Comments POC-GLUCOSE METER (BEAKER) 224 mg/dL 70-110 TESTED AT [address] (test mmfv=0033) [place] [address] [id number] 13:34:00 Test Item Value Reference Range Comments PARTIAL THROMBOPLASTIN TIME (BEAKER) (test 85.8 seconds 22.5-36.0 pyvb=896) POCT-GLUCOSE [id number] 13:26:00 Test Item Value Reference Range Comments POC-GLUCOSE METER (BEAKER) 208 mg/dL 70-110 TESTED AT [address] (test qdiw=9662) [place] [address] POCT-GLUCOSE [id number] 09:09:00 Test Item Value Reference Range Comments POC-GLUCOSE METER (BEAKER) 203 mg/dL 70-110 TESTED AT [address] (test uzsf=1340) [place] [address] BASIC METABOLIC [id number] 07:09:00 Test Item Value Reference Range Comments SODIUM (BEAKER) (test 139 meq/L 136-145 hlmx=788) POTASSIUM (BEAKER) (test 3.6 meq/L 3.5-5.1 voao=906) CHLORIDE (BEAKER) (test 97 meq/L 98-107 nhtw=984) CO2 (BEAKER) (test 30 meq/L 22-29 ateg=455) BLOOD UREA NITROGEN 56 mg/dL 7-21 (BEAKER) (test bmxo=538) CREATININE (BEAKER) (test 2.30 mg/dL 0.57-1.25 dztl=772) GLUCOSE RANDOM (BEAKER) 227 mg/dL 70-105 (test rpfc=832) CALCIUM (BEAKER) (test 9.3 mg/dL 8.4-10.2 tlzv=069) EGFR (BEAKER) (test 28 mL/min/1.73 sq m ESTIMATED GFR IS NOT cuzx=0846) ACCURATE CREATININE CLEARANCE IN PREDICTING GLOMERULAR FILTRATION RATE. ESTIMATED GFR IS NOT APPLICABLE FOR DIALYSIS PATIENTS. [id number] 07:08:00 Test Item Value Reference Range Comments MAGNESIUM (BEAKER) (test yrtq=238) 1.6 mg/dL 1.6-2.6 [id number] 06:31:00 Test Item Value Reference Range Comments PARTIAL THROMBOPLASTIN TIME (BEAKER) (test 89.3 seconds 22.5-36.0 wcgm=633) While on warfarin.PROTHROMBIN TIME/[id number] 06:29:00 Test Item Value Reference Range Comments PROTIME (BEAKER) (test mmdi=327) 19.8 seconds 11.7-14.7 INR (BEAKER) (test idco=568) 1.7 <=5.9 RECOMMENDED COUMADIN/WARFARIN INR THERAPY RANGESSTANDARD DOSE: 2.0 - 3.0 Includes: PROPHYLAXIS forvenous thrombosis, systemic embolization; TREATMENT for venous thrombosis and/or pulmonary embolus.HIGH RISK: Target INR is 2.5-3.5 for patients with mechanical heart valves.While on warfarin.[id number] 22:50 :00 Test Item Value Reference Range Comments PARTIAL THROMBOPLASTIN TIME (BEAKER) (test 110.0 seconds 22.5-36.0 gcyb=381) POCT-GLUCOSE [id number] 22:48:00 Test Item Value Reference Range Comments POC-GLUCOSE METER (BEAKER) 188 mg/dL 70-110 TESTED AT [address] (test czzj=5806) [facility] [address] POCT-GLUCOSE [id number] 17:03:00 Test Item Value Reference Range Comments POC-GLUCOSE METER (BEAKER) 185 mg/dL 70-110 TESTED AT [address] (test mhvj=8820) [facility] [address] [id number] 15:20:00 Test Item Value Reference Range Comments PARTIAL THROMBOPLASTIN TIME (BEAKER) (test 64.0 seconds 22.5-36.0 hdfh=515) POCT-GLUCOSE [id number] 12:48:00 Test Item Value Reference Range Comments POC-GLUCOSE METER (BEAKER) 269 mg/dL 70-110 TESTED AT [facility] [address] [facility] (test dqyw=4830) [facility] [address] POCT-GLUCOSE [id number] 09:25:00 Test Item Value Reference Range Comments POC-GLUCOSE METER (BEAKER) 209 mg/dL 70-110 TESTED AT [place] [id number] [facility] (test efep=7641) [facility] [address] [id number] 06:39:00 Test Item Value Reference Range Comments PARTIAL THROMBOPLASTIN TIME (BEAKER) (test 102.4 seconds 22.5-36.0 nxup=251) While on warfarin.VITAMIN D, [id number] 05:39:00 Test Item Value Reference Range Comments VITAMIN D 25-OH (BEAKER) (test opxd=2914) 37.0 ng/mL 6.6-49.9 Effective 09/01/2017: Reference Range ChangeNew: 6.6-49.9 ng/mL Previous: 13.0 -47.8 ng/mLRecommended Vitamin D Target Range: 30.0-40.0 [facility] METABOLIC [id number] 05:16:00 Test Item Value Reference Range Comments SODIUM (BEAKER) (test 138 meq/L 136-145 phmc=740) POTASSIUM (BEAKER) (test 3.8 meq/L 3.5-5.1 lmhn=315) CHLORIDE (BEAKER) (test 97 meq/L 98-107 cbkz=785) CO2 (BEAKER) (test 31 meq/L 22-29 ocen=562) BLOOD UREA NITROGEN 62 mg/dL 7-21 (BEAKER) (test wgvo=796) CREATININE (BEAKER) (test 2.20 mg/dL 0.57-1.25 wwby=866) GLUCOSE RANDOM (BEAKER) 162 mg/dL 70-105 (test qjbr=493) CALCIUM (BEAKER) (test 9.2 mg/dL 8.4-10.2 qnzq=336) EGFR (BEAKER) (test 29 mL/min/1.73 sq m ESTIMATED GFR IS NOT hxli=9573) ACCURATE CREATININE CLEARANCE IN PREDICTING GLOMERULAR FILTRATION RATE. ESTIMATED GFR IS NOT APPLICABLE FOR DIALYSIS PATIENTS. [id number] 05:11:00 Test Item Value Reference Range Comments PHOSPHORUS (BEAKER) (test ljij=858) 4.4 mg/dL 2.3-4.7 [id number] 05:11:00 Test Item Value Reference Range Comments MAGNESIUM (BEAKER) (test iswq=877) 1.5 mg/dL 1.6-2.6 PROTHROMBIN [id number] 05:05:00 Test Item Value Reference Range Comments PROTIME (BEAKER) (test zwvv=615) 18.6 seconds 11.7-14.7 INR (BEAKER) (test tlly=375) 1.6 <=5.9 RECOMMENDED COUMADIN/WARFARIN INR THERAPY RANGESSTANDARD DOSE: 2.0 - 3.0 Includes: PROPHYLAXIS forvenous thrombosis, systemic embolization; TREATMENT for venous thrombosis and/or pulmonary embolus.HIGH RISK: Target INR is 2.5-3.5 for patients with mechanical heart valves.While on warfarin.POCT-GLUCOSE [id number] 22:28:00 Test Item Value Reference Range Comments POC-GLUCOSE METER (BEAKER) 196 mg/dL 70-110 TESTED AT [facility] [address] [facility] (test csna=6609) [place] [id number] POCT-GLUCOSE [id number] 16:37:00 Test Item Value Reference Range Comments POC-GLUCOSE METER (BEAKER) 211 mg/dL 70-110 TESTED AT [address] (test luhr=8275) [place] [id number] RAD, FOOT, 2 VIEWS, [id number] 13:10:00Reason for exam:->painFINAL REPORT TECHNIQUE: Frontal, lateral, and oblique radiographs of the left foot dated 01/24/2019 HISTORY: Pain COMPARISON: None. FINDINGS:There appears to be inversion of the foot medially. On the lateral view there appear to be fractures of the fourth and fifth proximal metatarsal bones this is not clearly seen on the frontal or oblique views. It is difficult to determine the acuity of these fractures. No dislocation. Bones are osteopenic. The Lisfranc joint is well alignedon these nonstress views. No bone erosion or soft tissue nodule seen. No radiodense foreign body or subcutaneous emphysema. There is marked soft tissue swelling of the foot. IMPRESSION:Age indeterminate fractures of the fourth and fifth metatarsal bones, seen on the lateral view only.. Soft tissue swelling of the foot. Signed: Nikki Bang MDReport Verified Date/Time: 01/24/2019 13:10:38 Reading Location: [facility] Radiology Reading Room POCT-GLUCOSE [id number] 12:43:00 Test Item Value Reference Range Comments POC-GLUCOSE METER (BEAKER) 217 mg/dL 70-110 TESTED AT [address] (test etnw=2519) [place] [id number] POCT-GLUCOSE [id number] 08:21:00 Test Item Value Reference Range Comments POC-GLUCOSE METER (BEAKER) 186 mg/dL 70-110 TESTED AT [address] (test nyiq=3977) [place] [address] [id number] 05:21:00 Test Item Value Reference Range Comments PHOSPHORUS (BEAKER) (test rojd=693) 4.5 mg/dL 2.3-4.7 [id number] 05:21:00 Test Item Value Reference Range Comments MAGNESIUM (BEAKER) (test avhv=352) 1.7 mg/dL 1.6-2.6 BASIC METABOLIC [id number] 05:21:00 Test Item Value Reference Range Comments SODIUM (BEAKER) (test 136 meq/L 136-145 ehys=345) POTASSIUM (BEAKER) (test 3.9 meq/L 3.5-5.1 cijz=518) CHLORIDE (BEAKER) (test 95 meq/L 98-107 qmmb=800) CO2 (BEAKER) (test 30 meq/L 22-29 wffz=888) BLOOD UREA NITROGEN 68 mg/dL 7-21 (BEAKER) (test nxxx=206) CREATININE (BEAKER) (test 2.15 mg/dL 0.57-1.25 lydx=528) GLUCOSE RANDOM (BEAKER) 170 mg/dL 70-105 (test mmqo=745) CALCIUM (BEAKER) (test 8.8 mg/dL 8.4-10.2 ijzf=140) EGFR (BEAKER) (test 30 mL/min/1.73 sq m ESTIMATED GFR IS NOT utwh=2671) ACCURATE CREATININE CLEARANCE IN PREDICTING GLOMERULAR FILTRATION RATE. ESTIMATED GFR IS NOT APPLICABLE FOR DIALYSIS PATIENTS. [id number] 05:16:00 Test Item Value Reference Range Comments PARTIAL THROMBOPLASTIN TIME (BEAKER) (test 84.7 seconds 22.5-36.0 xhgy=615) While on warfarin.PROTHROMBIN [id number] 05:14:00 Test Item Value Reference Range Comments PROTIME (BEAKER) (test tuhs=849) 15.7 seconds 11.7-14.7 INR (BEAKER) (test jyxl=256) 1.2 <=5.9 RECOMMENDED COUMADIN/WARFARIN INR THERAPY RANGESSTANDARD DOSE: 2.0 - 3.0 Includes: PROPHYLAXIS forvenous thrombosis, systemic embolization; TREATMENT for venous thrombosis and/or pulmonary embolus.HIGH RISK: Target INR is 2.5-3.5 for patients with mechanical heart valves.While on warfarin.POCT-GLUCOSE [id number] 21:30:00 Test Item Value Reference Range Comments POC-GLUCOSE METER (BEAKER) 267 mg/dL 70-110 TESTED AT [address] (test eaqs=0227) [place] [address] POCT-GLUCOSE [id number] 16:28:00 Test Item Value Reference Range Comments POC-GLUCOSE METER (BEAKER) 184 mg/dL 70-110 TESTED AT [address] (test addy=5273) [place] [id number] POCT-GLUCOSE [id number] 12:04:00 Test Item Value Reference Range Comments POC-GLUCOSE METER (BEAKER) 213 mg/dL 70-110 TESTED AT [address] (test dodh=1480) [place] [id number] POCT-GLUCOSE [id number] 08:05:00 Test Item Value Reference Range Comments POC-GLUCOSE METER (BEAKER) 175 mg/dL 70-110 TESTED AT [address] (test kjdv=3319) [place] [id number] BLOOD [id number] 07:01:00 Test Item Value Reference Range Comments CULTURE (BEAKER) (test mtbx=9314) No growth in 5 days BLOOD [id number] 07:01:00 Test Item Value Reference Range Comments CULTURE (BEAKER) (test aemj=5024) No growth in 5 days [id number] 05:40:00 Test Item Value Reference Range Comments FERRITIN (BEAKER) (test jyxx=231) 508 ng/mL 5-275 Next blood drawCBC W/PLT COUNT & AUTO [id number] 05:25:00 Test Item Value Reference Range Comments WHITE BLOOD CELL COUNT (BEAKER) (test pvda=928) 9.0 K/ L 3.5-10.5 RED BLOOD CELL COUNT (BEAKER) (test koyi=667) 3.36 M/ L 4.63-6.08 HEMOGLOBIN (BEAKER) (test ouln=376) 10.7 GM/DL 13.7-17.5 HEMATOCRIT (BEAKER) (test pcwu=651) 33.0 % 40.1-51.0 MEAN CORPUSCULAR VOLUME (BEAKER) (test yexj=079) 98.2 fL 79.0-92.2 MEAN CORPUSCULAR HEMOGLOBIN (BEAKER) (test 31.8 pg 25.7-32.2 iqil=868) MEAN CORPUSCULAR HEMOGLOBIN CONC (BEAKER) (test 32.4 GM/DL 32.3-36.5 xpcb=690) RED CELL DISTRIBUTION WIDTH (BEAKER) (test 14.1 % 11.6-14.4 uuas=824) PLATELET COUNT (BEAKER) (test eqvr=036) 241 K/CU MM 150-450 MEAN PLATELET VOLUME (BEAKER) (test zqko=023) 10.1 fL 9.4-12.4 NUCLEATED RED BLOOD CELLS (BEAKER) (test 0 /100 WBC 0-0 ertq=047) NEUTROPHILS RELATIVE PERCENT (BEAKER) (test 63 % xxyp=433) LYMPHOCYTES RELATIVE PERCENT (BEAKER) (test 21 % bxdn=918) MONOCYTES RELATIVE PERCENT (BEAKER) (test 11 % ngvr=057) EOSINOPHILS RELATIVE PERCENT (BEAKER) (test 3 % cbcj=886) BASOPHILS RELATIVE PERCENT (BEAKER) (test 1 % muzl=911) NEUTROPHILS ABSOLUTE COUNT (BEAKER) (test 5.71 K/ L 1.78-5.38 vaaq=248) LYMPHOCYTES ABSOLUTE COUNT (BEAKER) (test 1.91 K/ L 1.32-3.57 moqu=527) MONOCYTES ABSOLUTE COUNT (BEAKER) (test 0.96 K/ L 0.30-0.82 vxtl=049) EOSINOPHILS ABSOLUTE COUNT (BEAKER) (test 0.29 K/ L 0.04-0.54 rxsk=849) BASOPHILS ABSOLUTE COUNT (BEAKER) (test 0.05 K/ L 0.01-0.08 rkgu=835) IMMATURE GRANULOCYTES-RELATIVE PERCENT (BEAKER) 1 % 0-1 (test imcm=8021) PROTHROMBIN [id number] 04:51:00 Test Item Value Reference Range Comments PROTIME (BEAKER) (test qqed=971) 14.8 seconds 11.7-14.7 INR (BEAKER) (test bgzj=092) 1.2 <=5.9 RECOMMENDED COUMADIN/WARFARIN INR THERAPY RANGESSTANDARD DOSE: 2.0 - 3.0 Includes: PROPHYLAXIS forvenous thrombosis, systemic embolization; TREATMENT for venous thrombosis and/or pulmonary embolus.HIGH RISK: Target INR is 2.5-3.5 for patients with mechanical heart valves.While on warfarin.BASIC METABOLIC [id number] 04:49:00 Test Item Value Reference Range Comments SODIUM (BEAKER) (test 138 meq/L 136-145 ixij=139) POTASSIUM (BEAKER) (test 4.2 meq/L 3.5-5.1 tpgj=549) CHLORIDE (BEAKER) (test 97 meq/L 98-107 dtdg=078) CO2 (BEAKER) (test 30 meq/L 22-29 hzpu=003) BLOOD UREA NITROGEN 73 mg/dL 7-21 (BEAKER) (test rbsq=190) CREATININE (BEAKER) (test 2.32 mg/dL 0.57-1.25 katg=545) GLUCOSE RANDOM (BEAKER) 149 mg/dL 70-105 (test tnrh=639) CALCIUM (BEAKER) (test 8.5 mg/dL 8.4-10.2 ukbw=261) EGFR (BEAKER) (test 28 mL/min/1.73 sq m ESTIMATED GFR IS NOT typz=8667) ACCURATE CREATININE CLEARANCE IN PREDICTING GLOMERULAR FILTRATION RATE. ESTIMATED GFR IS NOT APPLICABLE FOR DIALYSIS PATIENTS. [id number] 04:48:00 Test Item Value Reference Range Comments PHOSPHORUS (BEAKER) (test fsfb=771) 5.7 mg/dL 2.3-4.7 [id number] 04:48:00 Test Item Value Reference Range Comments MAGNESIUM (BEAKER) (test lhzo=695) 1.3 mg/dL 1.6-2.6 [id number] 02:38:00 Test Item Value Reference Range Comments PARTIAL THROMBOPLASTIN TIME (BEAKER) (test 72.2 seconds 22.5-36.0 deew=959) POCT-GLUCOSE [id number] 23:00:00 Test Item Value Reference Range Comments POC-GLUCOSE METER (BEAKER) 227 mg/dL 70-110 TESTED AT [address] (test vnfy=4094) [place] [address] [id number] 21:03:00 Test Item Value Reference Range Comments PARTIAL THROMBOPLASTIN TIME (BEAKER) (test 88.9 seconds 22.5-36.0 rnvs=960) POCT-GLUCOSE [id number] 19:37:00 Test Item Value Reference Range Comments POC-GLUCOSE METER (BEAKER) 187 mg/dL 70-110 TESTED AT [address] (test jycq=0035) [place] [address] [id number] 16:35:00 Test Item Value Reference Range Comments FERRITIN (BEAKER) (test wzxt=528) 404 ng/mL 22-322 Next blood drawPOCT-GLUCOSE [id number] 11:54:00 Test Item Value Reference Range Comments POC-GLUCOSE METER (BEAKER) 217 mg/dL 70-110 TESTED AT [address] (test ldwv=7765) [place] [address] [id number] 11:49:00 Test Item Value Reference Range Comments PARTIAL THROMBOPLASTIN TIME (BEAKER) (test 65.5 seconds 22.5-36.0 yrzz=816) POCT-GLUCOSE [id number] 08:15:00 Test Item Value Reference Range Comments POC-GLUCOSE METER (BEAKER) 183 mg/dL 70-110 TESTED AT [address] (test tzlr=8871) [place] [address] VITAMIN [id number] 05:29:00 Test Item Value Reference Range Comments VITAMIN B12 (BEAKER) (test hgos=369) 1426 pg/mL 213-816 Next blood drawNext blood drawBASIC METABOLIC [id number] 04:55:00 Test Item Value Reference Range Comments SODIUM (BEAKER) (test 139 meq/L 136-145 aoes=645) POTASSIUM (BEAKER) (test 3.8 meq/L 3.5-5.1 fsjz=743) CHLORIDE (BEAKER) (test 99 meq/L 98-107 ncmf=272) CO2 (BEAKER) (test 29 meq/L 22-29 roqs=184) BLOOD UREA NITROGEN 71 mg/dL 7-21 (BEAKER) (test yhxq=336) CREATININE (BEAKER) (test 2.35 mg/dL 0.57-1.25 vgae=968) GLUCOSE RANDOM (BEAKER) 152 mg/dL 70-105 (test oybq=802) CALCIUM (BEAKER) (test 8.2 mg/dL 8.4-10.2 yoan=996) EGFR (BEAKER) (test 27 mL/min/1.73 sq m ESTIMATED GFR IS NOT bqpi=2864) ACCURATE CREATININE CLEARANCE IN PREDICTING GLOMERULAR FILTRATION RATE. ESTIMATED GFR IS NOT APPLICABLE FOR DIALYSIS PATIENTS. [id number] 04:48:00 Test Item Value Reference Range Comments PHOSPHORUS (BEAKER) (test gbmr=122) 4.9 mg/dL 2.3-4.7 [id number] 04:48:00 Test Item Value Reference Range Comments MAGNESIUM (BEAKER) (test qdsk=167) 1.4 mg/dL 1.6-2.6 [id number] 04:42:00 Test Item Value Reference Range Comments PARTIAL THROMBOPLASTIN TIME (BEAKER) (test 46.5 seconds 22.5-36.0 esjn=058) While on warfarin.PROTHROMBIN [id number] 04:41:00 Test Item Value Reference Range Comments PROTIME (BEAKER) (test gthg=990) 14.9 seconds 11.7-14.7 INR (BEAKER) (test dzwt=238) 1.2 <=5.9 RECOMMENDED COUMADIN/WARFARIN INR THERAPY RANGESSTANDARD DOSE: 2.0 - 3.0 Includes: PROPHYLAXIS forvenous thrombosis, systemic embolization; TREATMENT for venous thrombosis and/or pulmonary embolus.HIGH RISK: Target INR is 2.5-3.5 for patients with mechanical heart valves.While on warfarin.POCT-GLUCOSE [id number] 21:36:00 Test Item Value Reference Range Comments POC-GLUCOSE METER (BEAKER) 209 mg/dL 70-110 TESTED AT [address] (test lvtq=9738) [place] [address] POCT-GLUCOSE [id number] 18:55:00 Test Item Value Reference Range Comments POC-GLUCOSE METER (BEAKER) 177 mg/dL 70-110 TESTED AT [address] (test kwxd=4906) [place] [address] PROTHROMBIN [id number] 15:00:00 Test Item Value Reference Range Comments PROTIME (BEAKER) (test vsea=655) 15.7 seconds 11.7-14.7 INR (BEAKER) (test dpsy=748) 1.2 <=5.9 RECOMMENDED COUMADIN/WARFARIN INR THERAPY RANGESSTANDARD DOSE: 2.0 - 3.0 Includes: PROPHYLAXIS forvenous thrombosis, systemic embolization; TREATMENT for venous thrombosis and/or pulmonary embolus.HIGH RISK: Target INR is 2.5-3.5 for patients with mechanical heart valves.[id number] 13:32:00 Test Item Value Reference Range Comments PARTIAL THROMBOPLASTIN TIME (BEAKER) (test 76.3 seconds 22.5-36.0 eupb=719) POCT-GLUCOSE [id number] 12:15:00 Test Item Value Reference Range Comments POC-GLUCOSE METER (BEAKER) 273 mg/dL 70-110 TESTED AT [address] (test niqh=8941) [place] [address] [id number] 11:33:00 Test Item Value Reference Range Comments PARTIAL THROMBOPLASTIN TIME (BEAKER) (test > seconds 22.5-36.0 zsjs=984) POCT-GLUCOSE [id number] 07:00:00 Test Item Value Reference Range Comments POC-GLUCOSE METER (BEAKER) 190 mg/dL 70-110 TESTED AT [address] (test tjyn=2069) [place] [address] VITAMIN [id number] 04:08:00 Test Item Value Reference Range Comments VITAMIN B12 (BEAKER) (test rksd=585) 1616 pg/mL 213-816 Next blood drawNext blood [id number] 04:08:00 Test Item Value Reference Range Comments FERRITIN (BEAKER) (test xfjb=312) 404 ng/mL 5-275 Next blood drawNext blood drawBASIC METABOLIC [id number] 03:33:00 Test Item Value Reference Range Comments SODIUM (BEAKER) (test 143 meq/L 136-145 yzfd=241) POTASSIUM (BEAKER) (test 4.0 meq/L 3.5-5.1 kcku=643) CHLORIDE (BEAKER) (test 104 meq/L 98-107 bmyq=602) CO2 (BEAKER) (test 29 meq/L 22-29 dhxq=542) BLOOD UREA NITROGEN 81 mg/dL 7-21 (BEAKER) (test rizb=905) CREATININE (BEAKER) (test 2.62 mg/dL 0.57-1.25 jfqt=241) GLUCOSE RANDOM (BEAKER) 163 mg/dL 70-105 (test pfme=088) CALCIUM (BEAKER) (test 8.9 mg/dL 8.4-10.2 stla=493) EGFR (BEAKER) (test 24 mL/min/1.73 sq m ESTIMATED GFR IS NOT ofzf=5035) ACCURATE CREATININE CLEARANCE IN PREDICTING GLOMERULAR FILTRATION RATE. ESTIMATED GFR IS NOT APPLICABLE FOR DIALYSIS PATIENTS. [id number] 03:30:00 Test Item Value Reference Range Comments PHOSPHORUS (BEAKER) (test dgta=719) 5.2 mg/dL 2.3-4.7 [id number] 03:30:00 Test Item Value Reference Range Comments MAGNESIUM (BEAKER) (test qywl=732) 1.6 mg/dL 1.6-2.6 [id number] 03:28:00 Test Item Value Reference Range Comments PARTIAL THROMBOPLASTIN TIME (BEAKER) (test 72.8 seconds 22.5-36.0 xcpm=562) CBC W/PLT COUNT & AUTO [id number] 03:17:00 Test Item Value Reference Range Comments WHITE BLOOD CELL COUNT (BEAKER) (test fghp=535) 10.4 K/ L 3.5-10.5 RED BLOOD CELL COUNT (BEAKER) (test qvvz=653) 3.48 M/ L 4.63-6.08 HEMOGLOBIN (BEAKER) (test wzdg=363) 11.2 GM/DL 13.7-17.5 HEMATOCRIT (BEAKER) (test wiqm=510) 34.2 % 40.1-51.0 MEAN CORPUSCULAR VOLUME (BEAKER) (test bdbv=645) 98.3 fL 79.0-92.2 MEAN CORPUSCULAR HEMOGLOBIN (BEAKER) (test 32.2 pg 25.7-32.2 vitp=569) MEAN CORPUSCULAR HEMOGLOBIN CONC (BEAKER) (test 32.7 GM/DL 32.3-36.5 sjbv=580) RED CELL DISTRIBUTION WIDTH (BEAKER) (test 14.4 % 11.6-14.4 zcvg=557) PLATELET COUNT (BEAKER) (test qfra=042) 242 K/CU MM 150-450 MEAN PLATELET VOLUME (BEAKER) (test cuho=864) 9.9 fL 9.4-12.4 NUCLEATED RED BLOOD CELLS (BEAKER) (test 0 /100 WBC 0-0 kkih=166) NEUTROPHILS RELATIVE PERCENT (BEAKER) (test 74 % kfks=687) LYMPHOCYTES RELATIVE PERCENT (BEAKER) (test 12 % rnas=839) MONOCYTES RELATIVE PERCENT (BEAKER) (test 9 % tdns=453) EOSINOPHILS RELATIVE PERCENT (BEAKER) (test 3 % twov=759) BASOPHILS RELATIVE PERCENT (BEAKER) (test 1 % ryua=673) NEUTROPHILS ABSOLUTE COUNT (BEAKER) (test 7.73 K/ L 1.78-5.38 ohox=017) LYMPHOCYTES ABSOLUTE COUNT (BEAKER) (test 1.27 K/ L 1.32-3.57 psmg=893) MONOCYTES ABSOLUTE COUNT (BEAKER) (test 0.93 K/ L 0.30-0.82 pxyx=565) EOSINOPHILS ABSOLUTE COUNT (BEAKER) (test 0.30 K/ L 0.04-0.54 rztv=288) BASOPHILS ABSOLUTE COUNT (BEAKER) (test 0.05 K/ L 0.01-0.08 wiao=038) IMMATURE GRANULOCYTES-RELATIVE PERCENT (BEAKER) 1 % 0-1 (test csnh=0840) POCT-GLUCOSE [id number] 00:35:00 Test Item Value Reference Range Comments POC-GLUCOSE METER (BEAKER) 195 mg/dL 70-110 TESTED AT [facility] [address] [facility] (test txfd=8126) [facility] [address] [id number] 20:37:00 Test Item Value Reference Range Comments PARTIAL THROMBOPLASTIN TIME (BEAKER) (test 50.2 seconds 22.5-36.0 fuyo=646) POCT-GLUCOSE [id number] 18:35:00 Test Item Value Reference Range Comments POC-GLUCOSE METER (BEAKER) 173 mg/dL 70-110 TESTED AT [facility] [address] [facility] (test spmr=5631) [facility] [address] BRONCHIAL CULTURE + GRAM [id number] 15:38:00 Test Item Value Reference Range Comments CULTURE (BEAKER) (test <1+ Normal respiratory jeana vsdo=3601) present GRAM STAIN RESULT (BEAKER) No White blood cells seen (test lwmv=6015) GRAM STAIN RESULT (BEAKER) No organisms seen (test gzvs=91072) SPUTUM CULTURE + GRAM [id number] 14:47:00 Test Item Value Reference Range Comments CULTURE (BEAKER) (test uiil=4021) See comment GRAM STAIN RESULT (BEAKER) (test <1+ WBCs mmsn=5092) GRAM STAIN RESULT (BEAKER) (test 0-5 epithelial cells qktg=370298) GRAM STAIN RESULT (BEAKER) (test No organisms seen qvll=883081) <1+ yeast1+ Normal respiratory jeana presentMRSA [id number] 14:46:00 Test Item Value Reference Range Comments CULTURE (BEAKER) (test lnbu=9227) No MRSA isolated SPUTUM CULTURE + GRAM [id number] 14:45:00 Test Item Value Reference Range Comments CULTURE (BEAKER) (test See comment rzlp=9548) GRAM STAIN RESULT (BEAKER) 2+ White blood cells seen (test lckr=4551) GRAM STAIN RESULT (BEAKER) 0-5 epithelial cells (test ipew=659465) GRAM STAIN RESULT (BEAKER) 1+ gram positive cocci in pairs (test gosw=359265) 1+ yeast1+ Normal respiratory jeana [id number] 14:20:00 Test Item Value Reference Range Comments PARTIAL THROMBOPLASTIN TIME (BEAKER) (test 57.9 seconds 22.5-36.0 fquw=076) [id number] 12:47:00 Test Item Value Reference Range Comments PARTIAL THROMBOPLASTIN TIME (BEAKER) (test > seconds 22.5-36.0 oyze=436) POCT-GLUCOSE [id number] 12:39:00 Test Item Value Reference Range Comments POC-GLUCOSE METER (BEAKER) 194 mg/dL 70-110 TESTED AT [address] (test bbhg=0463) [place] [id number] VITAMIN [id number] 08:56:00 Test Item Value Reference Range Comments VITAMIN B12 (BEAKER) (test cwys=442) 1677 pg/mL 213-816 Next blood drawNext blood [id number] 08:56:00 Test Item Value Reference Range Comments FERRITIN (BEAKER) (test qnmg=031) 320 ng/mL 5-275 Next blood drawNext blood drawPOCT-GLUCOSE [id number] 07:15:00 Test Item Value Reference Range Comments POC-GLUCOSE METER (BEAKER) 195 mg/dL 70-110 TESTED AT [address] (test crag=7155) [place] [address] [id number] 05:51:00 Test Item Value Reference Range Comments PARTIAL THROMBOPLASTIN TIME (BEAKER) (test 47.1 seconds 22.5-36.0 sncz=642) BASIC METABOLIC [id number] 05:40:00 Test Item Value Reference Range Comments SODIUM (BEAKER) (test 142 meq/L 136-145 iren=410) POTASSIUM (BEAKER) (test 4.6 meq/L 3.5-5.1 wkmk=888) CHLORIDE (BEAKER) (test 107 meq/L 98-107 yonz=876) CO2 (BEAKER) (test 23 meq/L 22-29 djsm=475) BLOOD UREA NITROGEN 83 mg/dL 7-21 (BEAKER) (test gdth=676) CREATININE (BEAKER) (test 3.16 mg/dL 0.57-1.25 xzms=570) GLUCOSE RANDOM (BEAKER) 224 mg/dL 70-105 (test zoll=310) CALCIUM (BEAKER) (test 9.0 mg/dL 8.4-10.2 tlpv=440) EGFR (BEAKER) (test 19 mL/min/1.73 sq m ESTIMATED GFR IS NOT hrns=3186) ACCURATE CREATININE CLEARANCE IN PREDICTING GLOMERULAR FILTRATION RATE. ESTIMATED GFR IS NOT APPLICABLE FOR DIALYSIS PATIENTS. [id number] 05:33:00 Test Item Value Reference Range Comments MAGNESIUM (BEAKER) (test pcly=347) 1.9 mg/dL 1.6-2.6 [id number] 05:16:00 Test Item Value Reference Range Comments PROCALCITONIN (BEAKER) (test fxsy=9847) 0.89 ng/mL <0.05 SEPSIS RISK (ng/mL)Low: 0.05-0.50Intermediate: 0.51-2.00High: & gt;=[id number] 05:10:00 Test Item Value Reference Range Comments PARTIAL THROMBOPLASTIN TIME (BEAKER) (test > seconds 22.5-36.0 klkh=062) [id number] 04:43:00 Test Item Value Reference Range Comments PHOSPHORUS (BEAKER) (test sdbo=317) 6.3 mg/dL 2.3-4.7 POCT-GLUCOSE [id number] 00:30:00 Test Item Value Reference Range Comments POC-GLUCOSE METER (BEAKER) 190 mg/dL 70-110 TESTED AT [address] (test hzij=1973) [facility] [address] [id number] 22:42:00 Test Item Value Reference Range Comments PARTIAL THROMBOPLASTIN TIME (BEAKER) (test 30.8 seconds 22.5-36.0 qyqb=988) [id number] 21:48:00 Test Item Value Reference Range Comments PARTIAL THROMBOPLASTIN TIME (BEAKER) (test 32.1 seconds 22.5-36.0 jedf=873) [id number] 20:02:00 Test Item Value Reference Range Comments PARTIAL THROMBOPLASTIN TIME (BEAKER) (test 154.5 seconds 22.5-36.0 djfr=644) U/S, RENAL, [id number] 17:24:00Reason for exam:->AKIFINAL REPORT Ultrasound of the Kidneys Clinical History: [...] and veins demonstrate patency. Bladder: Decompressed with Hannah catheter. Impression:No hydronephrosis. Signed: Reymundo Waters MDReport Verified Date/Time: 01/19/2019 17:24: 49 Reading Location: [address] Ultrasound Reading Room POCT-GLUCOSE [id number] 16 :20:00 Test Item Value Reference Range Comments POC-GLUCOSE METER (BEAKER) 217 mg/dL 70-110 TESTED AT [address] (test rpht=3382) [facility] [address] BLOOD GAS, [id number] 13:45:00 Test Item Value Reference Range Comments PH ARTERIAL (BEAKER) (test yknv=018) 7.42 7.35-7.45 PCO2 ARTERIAL (BEAKER) (test rgyh=870) 37 mmHg 35-45 PO2 ARTERIAL (BEAKER) (test squq=762) 155 mmHg 80-90 O2 SATURATION ARTERIAL (BEAKER) (test zwhl=007) 99.0 % 96.0-97.0 HCO3 ARTERIAL (BEAKER) (test hffi=323) 23 mmol/L 21-29 BASE EXCESS ARTERIAL (BEAKER) (test anxg=660) -0.8 mmol/L -2.0-3.0 PATIENT TEMPERATURE (BEAKER) (test dinl=9815) 37.5 C FIO2 (BEAKER) (test ltqd=9713) 40.0 % For 30 minutes AFTER [id number] 12:36:00 Test Item Value Reference Range Comments PARTIAL THROMBOPLASTIN TIME 102.5 seconds 22.5-36.0 Specimen not clotted (BEAKER) (test uqxe=841) RAD, CHEST, 1 VIEW, NON [id number] 11:12:00Reason for exam:->pnaShould this be performed at the bedside?->YesFINAL REPORT Chest dated 01/19/2019 COMPARISON: January 11, 2017, 2018 Clinical Information: pna Comment: Heart is enlarged. [...] the right brachiocephalic vein. Signed: Keya Harris MDReport Verified Date/Time: 01/19/2019 11:12:39 Reading Location: [facility] Radiology Reading Room POCT-GLUCOSE [id number] 06:18:00 Test Item Value Reference Range Comments POC-GLUCOSE METER (BEAKER) 224 mg/dL 70-110 TESTED AT [facility] [address] [facility] (test wjfz=1876) [facility] [address] [id number] 05:20:00 Test Item Value Reference Range Comments PARTIAL THROMBOPLASTIN TIME (BEAKER) (test 28.9 seconds 22.5-36.0 saby=792) VITAMIN [id number] 04:57:00 Test Item Value Reference Range Comments VITAMIN B12 (BEAKER) (test rfeo=271) 1685 pg/mL 213-816 Next blood drawNext blood [id number] 04:57:00 Test Item Value Reference Range Comments FERRITIN (BEAKER) (test dtuu=130) 320 ng/mL 5-275 Next blood drawNext blood drawBASIC METABOLIC [id number] 04:35:00 Test Item Value Reference Range Comments SODIUM (BEAKER) (test 138 meq/L 136-145 vxdb=807) POTASSIUM (BEAKER) (test 4.7 meq/L 3.5-5.1 iijk=781) CHLORIDE (BEAKER) (test 105 meq/L 98-107 nkzy=469) CO2 (BEAKER) (test 21 meq/L 22-29 ltdi=751) BLOOD UREA NITROGEN 82 mg/dL 7-21 (BEAKER) (test jgmo=483) CREATININE (BEAKER) (test 3.52 mg/dL 0.57-1.25 digd=174) GLUCOSE RANDOM (BEAKER) 209 mg/dL 70-105 (test kbae=596) CALCIUM (BEAKER) (test 8.8 mg/dL 8.4-10.2 ncrm=747) EGFR (BEAKER) (test 17 mL/min/1.73 sq m ESTIMATED GFR IS NOT rviq=3760) ACCURATE CREATININE CLEARANCE IN PREDICTING GLOMERULAR FILTRATION RATE. ESTIMATED GFR IS NOT APPLICABLE FOR DIALYSIS PATIENTS. [id number] 04:34:00 Test Item Value Reference Range Comments PHOSPHORUS (BEAKER) (test yvlz=991) 5.8 mg/dL 2.3-4.7 [id number] 04:34:00 Test Item Value Reference Range Comments MAGNESIUM (BEAKER) (test dltw=833) 1.9 mg/dL 1.6-2.6 VANCOMYCIN LEVEL, [id number] 04:27:00 Test Item Value Reference Range Comments VANCOMYCIN RANDOM (BEAKER) (test unjo=751) 14.6 ug/mL Reference Range: No NormalsCBC W/PLT COUNT & AUTO [id number] 04: 25:00 Test Item Value Reference Range Comments WHITE BLOOD CELL COUNT (BEAKER) (test qare=987) 11.6 K/ L 3.5-10.5 RED BLOOD CELL COUNT (BEAKER) (test uhzw=692) 3.57 M/ L 4.63-6.08 HEMOGLOBIN (BEAKER) (test idrj=179) 11.4 GM/DL 13.7-17.5 HEMATOCRIT (BEAKER) (test enfg=699) 34.0 % 40.1-51.0 MEAN CORPUSCULAR VOLUME (BEAKER) (test aoix=436) 95.2 fL 79.0-92.2 MEAN CORPUSCULAR HEMOGLOBIN (BEAKER) (test 31.9 pg 25.7-32.2 tweu=526) MEAN CORPUSCULAR HEMOGLOBIN CONC (BEAKER) (test 33.5 GM/DL 32.3-36.5 hgpg=219) RED CELL DISTRIBUTION WIDTH (BEAKER) (test 14.2 % 11.6-14.4 sfjy=201) PLATELET COUNT (BEAKER) (test iqtj=935) 220 K/CU MM 150-450 MEAN PLATELET VOLUME (BEAKER) (test zkbu=651) 9.7 fL 9.4-12.4 NUCLEATED RED BLOOD CELLS (BEAKER) (test 0 /100 WBC 0-0 nkrk=039) NEUTROPHILS RELATIVE PERCENT (BEAKER) (test 77 % wbdu=826) LYMPHOCYTES RELATIVE PERCENT (BEAKER) (test 9 % tzbv=787) MONOCYTES RELATIVE PERCENT (BEAKER) (test 8 % twqk=169) EOSINOPHILS RELATIVE PERCENT (BEAKER) (test 2 % ejun=205) BASOPHILS RELATIVE PERCENT (BEAKER) (test 1 % evso=898) NEUTROPHILS ABSOLUTE COUNT (BEAKER) (test 8.88 K/ L 1.78-5.38 ogef=094) LYMPHOCYTES ABSOLUTE COUNT (BEAKER) (test 1.04 K/ L 1.32-3.57 cshs=485) MONOCYTES ABSOLUTE COUNT (BEAKER) (test 0.92 K/ L 0.30-0.82 mglz=037) EOSINOPHILS ABSOLUTE COUNT (BEAKER) (test 0.19 K/ L 0.04-0.54 natd=711) BASOPHILS ABSOLUTE COUNT (BEAKER) (test 0.06 K/ L 0.01-0.08 qmvn=969) IMMATURE GRANULOCYTES-RELATIVE PERCENT (BEAKER) 5 % 0-1 (test rhhk=1196) POCT-GLUCOSE [id number] 02:05:00 Test Item Value Reference Range Comments POC-GLUCOSE METER (BEAKER) 145 mg/dL 70-110 TESTED AT [address] (test kyio=5871) [facility] [address] BODY FLUID CELL COUNT WITH [id number] 18:40:00 Test Item Value Reference Range Comments APPEARANCE FLUID (BEAKER) (test tduy=897) Hazy Clear COLOR FLUID (BEAKER) (test vhoi=951) [place] Colorless, Straw RBC FLUID (BEAKER) (test nqgk=696) 3450 /cu mm <=1 ADJUSTED WBC FLUID (BEAKER) (test gfqk=3091) 145 /cu mm <=5 LINING CELLS (BEAKER) (test pode=3793) 0 /cu mm <=1 NEUTROPHILS FLUID (BEAKER) (test nysk=3157) 85 % LYMPHS FLUID (BEAKER) (test gvca=656) 0 % MONO/MACROPHAGE FLUID (BEAKER) (test pvat=002) 15 % EOSINOPHILS FLUID (BEAKER) (test quqg=469) 0 % BASO FLUID (BEAKER) (test pqfa=004) 0 % CONTAINER BODY FLUID (BEAKER) (test uzfx=4765) EDTA Tube POCT-GLUCOSE [id number] 18:12:00 Test Item Value Reference Range Comments POC-GLUCOSE METER (BEAKER) 195 mg/dL 70-110 TESTED AT [address] (test xugm=6718) [facility] [address] VITAMIN D, [id number] 15:12:00 Test Item Value Reference Range Comments VITAMIN D 25-OH (BEAKER) (test abpa=1186) 31.9 ng/mL 6.6-49.9 Effective 09/01/2017: Reference Range ChangeNew: 6.6-49.9 ng/mL Previous: 13.0 -47.8 ng/mLRecommended Vitamin D Target Range: 30.0-40.0 ng/mLPTH, [id number] 14:57:00 Test Item Value Reference Range Comments PARATHYROID HORMONE INTACT (BEAKER) (test 251.9 pg/mL 8.5-72.5 pquc=688) POTASSIUM, RANDOM [id number] 14:55:00 Test Item Value Reference Range Comments POTASSIUM URINE (BEAKER) (test yujr=379) 21.6 meq/L Reference Range: No NormalsUREA NITROGEN, RANDOM [id number] 14:55:00 Test Item Value Reference Range Comments UREA NITROGEN URINE (BEAKER) (test qqbq=636) 603 mg/dL Reference Range: No NormalsPOCT-GLUCOSE [id number] 12:17:00 Test Item Value Reference Range Comments POC-GLUCOSE METER (BEAKER) 170 mg/dL 70-110 TESTED AT [address] (test tlpl=7197) [place] [id number] 10:56:00 Test Item Value Reference Range Comments PARTIAL THROMBOPLASTIN TIME (BEAKER) (test 35.0 seconds 22.5-36.0 tgdc=115) Prior to initiating heparinRAD, ABDOMEN/KUB, 1 VIEW [id number] 08:28:00Reason for exam:->OG positioningFINAL REPORT Abdomen date Comment: Frontal view of the abdomen demonstrates a nasogastric tube present with tip noted in the body of the stomach. Signed: Keya Harris MDReport Verified Date/Time: 01/18/2019 08:28:12 Reading Location: [facility] Radiology Reading Room POCT-GLUCOSE [id number] 06:12:00 Test Item Value Reference Range Comments POC-GLUCOSE METER (BEAKER) 161 mg/dL 70-110 TESTED AT [facility] [address] [facility] (test ongb=9100) [facility] [address] VITAMIN [id number] 04:17:00 Test Item Value Reference Range Comments VITAMIN B12 (BEAKER) (test dqlx=859) 1363 pg/mL 213-816 Next blood drawNext blood drawNext blood [id number] 04:17:00 Test Item Value Reference Range Comments FERRITIN (BEAKER) (test pybu=533) 306 ng/mL 5-275 Next blood drawNext blood drawNext blood drawURINALYSIS W/ REFLEX URINE [id number] 03:55:00 Test Item Value Reference Range Comments COLOR (BEAKER) (test zpyd=086) Yellow CLARITY (BEAKER) (test zcyg=051) Cloudy SPECIFIC GRAVITY UA (BEAKER) (test ldha=730) 1.012 1.001-1.035 PH UA (BEAKER) (test tdnv=965) 5.5 5.0-8.0 PROTEIN UA (BEAKER) (test qqcc=771) 30 mg/dL Negative GLUCOSE UA (BEAKER) (test jdeq=438) Negative Negative KETONES UA (BEAKER) (test ddnc=880) Negative Negative BILIRUBIN UA (BEAKER) (test ozod=235) Negative Negative BLOOD UA (BEAKER) (test dryt=794) Moderate Negative NITRITE UA (BEAKER) (test yeza=019) Negative Negative LEUKOCYTE ESTERASE UA (BEAKER) (test cnzz=800) Large Negative UROBILINOGEN UA (BEAKER) (test djsa=441) 0.2 mg/dL 0.2-1.0 RBC UA (BEAKER) (test ptaj=472) 27 /HPF WBC UA (BEAKER) (test lgxe=481) 536 /HPF BACTERIA (BEAKER) (test lvco=854) Few MUCUS (BEAKER) (test aoer=3301) Occasional SQUAMOUS EPITHELIAL (BEAKER) (test jdgz=990) 3 /HPF AMORPHOUS CRYSTALS (BEAKER) (test zxco=8446) Moderate YEAST (BEAKER) (test dyso=4627) Many SOURCE(BEAKER) (test sjqu=9708) IRON, TIBC, % SAT. (WITHOUT FERRITIN)2019-01-18 03:54:00 Test Item Value Reference Range Comments IRON (BEAKER) (test utig=939) 59.0 ug/dL 40.0-160.0 TOTAL IRON BINDING CAPACITY (BEAKER) (test 160 ug/dL 250-450 kzee=363) IRON % SATURATION (2) (BEAKER) (test xdyt=8184) 37 % 20-55 Next blood drawNext blood drawNext blood drawCOMPREHENSIVE METABOLIC [id number] 03:16:00 Test Item Value Reference Range Comments TOTAL PROTEIN (BEAKER) 6.0 gm/dL 6.0-8.3 (test yhhu=965) ALBUMIN (BEAKER) (test 2.7 g/dL 3.5-5.0 xffe=4146) ALKALINE PHOSPHATASE 83 U/L 40-150 (BEAKER) (test mvbg=524) BILIRUBIN TOTAL (BEAKER) 1.0 mg/dL 0.2-1.2 (test zszs=946) SODIUM (BEAKER) (test 136 meq/L 136-145 qwlq=513) POTASSIUM (BEAKER) (test 4.3 meq/L 3.5-5.1 lphw=129) CHLORIDE (BEAKER) (test 104 meq/L 98-107 nscf=877) CO2 (BEAKER) (test 20 meq/L 22-29 fjgv=026) BLOOD UREA NITROGEN 80 mg/dL 7-21 (BEAKER) (test xpyw=842) CREATININE (BEAKER) (test 3.90 mg/dL 0.57-1.25 wpqh=508) GLUCOSE RANDOM (BEAKER) 151 mg/dL 70-105 (test sivd=873) CALCIUM (BEAKER) (test 8.2 mg/dL 8.4-10.2 fwff=505) AST (SGOT) (BEAKER) (test 26 U/L 5-34 hkvm=905) ALT (SGPT) (BEAKER) (test 21 U/L 6-55 ckse=921) EGFR (BEAKER) (test 15 mL/min/1.73 sq m ESTIMATED GFR IS NOT idui=7374) ACCURATE CREATININE CLEARANCE IN PREDICTING GLOMERULAR FILTRATION RATE. ESTIMATED GFR IS NOT APPLICABLE FOR DIALYSIS PATIENTS. B-TYPE NATRIURETIC FACTOR (BNP)2019-01-18 03:08:00 Test Item Value Reference Range Comments B-TYPE NATRIURETIC PEPTIDE (BEAKER) (test 114 pg/mL 0-100 yasf=417) CREATININE, RANDOM [id number] 03:01:00 Test Item Value Reference Range Comments CREATININE URINE (BEAKER) (test uqsl=374) 82.0 mg/dL Reference Range: No NormalsPROTEIN, RANDOM [id number] 03:01:00 Test Item Value Reference Range Comments PROTEIN, URINE (BEAKER) (test hycb=2939) 23 mg/dL 0-14 SODIUM, RANDOM [id number] 03:01:00 Test Item Value Reference Range Comments SODIUM URINE (BEAKER) (test nntj=771) 30 meq/L Reference Range: No [id number] 02:58:00 Test Item Value Reference Range Comments PHOSPHORUS (BEAKER) (test ivqq=719) 5.3 mg/dL 2.3-4.7 [id number] 02:58:00 Test Item Value Reference Range Comments MAGNESIUM (BEAKER) (test owqn=154) 1.8 mg/dL 1.6-2.6 LACTIC ACID, ARTERIAL, WHOLE [id number] 02:57:00 Test Item Value Reference Range Comments LACTATE BLOOD ARTERIAL (2) 0.7 mmol/L 0.5-2.2 Specimen slightly hemolyzed (BEAKER) (test rcwj=1838) PROTHROMBIN [id number] 02:53:00 Test Item Value Reference Range Comments PROTIME (BEAKER) (test apcm=799) 15.9 seconds 11.7-14.7 INR (BEAKER) (test qufv=817) 1.3 <=5.9 RECOMMENDED COUMADIN/WARFARIN INR THERAPY RANGESSTANDARD DOSE: 2.0 - 3.0 Includes: PROPHYLAXIS forvenous thrombosis, systemic embolization; TREATMENT for venous thrombosis and/or pulmonary embolus.HIGH RISK: Target INR is 2.5-3.5 for patients with mechanical heart valves.[id number] 02:53:00 Test Item Value Reference Range Comments PARTIAL THROMBOPLASTIN TIME (BEAKER) (test 35.0 seconds 22.5-36.0 inss=532) CBC W/PLT COUNT & AUTO [id number] 02:47:00 Test Item Value Reference Range Comments WHITE BLOOD CELL COUNT (BEAKER) (test ipsx=982) 11.3 K/ L 3.5-10.5 RED BLOOD CELL COUNT (BEAKER) (test uicv=175) 3.51 M/ L 4.63-6.08 HEMOGLOBIN (BEAKER) (test kquz=575) 10.8 GM/DL 13.7-17.5 HEMATOCRIT (BEAKER) (test krnr=560) 33.4 % 40.1-51.0 MEAN CORPUSCULAR VOLUME (BEAKER) (test kbqw=336) 95.2 fL 79.0-92.2 MEAN CORPUSCULAR HEMOGLOBIN (BEAKER) (test 30.8 pg 25.7-32.2 ootc=596) MEAN CORPUSCULAR HEMOGLOBIN CONC (BEAKER) (test 32.3 GM/DL 32.3-36.5 grtw=683) RED CELL DISTRIBUTION WIDTH (BEAKER) (test 14.2 % 11.6-14.4 rdrz=305) PLATELET COUNT (BEAKER) (test tshz=334) 172 K/CU MM 150-450 MEAN PLATELET VOLUME (BEAKER) (test uoos=452) 9.5 fL 9.4-12.4 NUCLEATED RED BLOOD CELLS (BEAKER) (test 0 /100 WBC 0-0 jslz=971) NEUTROPHILS RELATIVE PERCENT (BEAKER) (test 70 % pgfr=813) LYMPHOCYTES RELATIVE PERCENT (BEAKER) (test 10 % lfve=470) MONOCYTES RELATIVE PERCENT (BEAKER) (test 10 % bioa=460) EOSINOPHILS RELATIVE PERCENT (BEAKER) (test 2 % wofv=606) BASOPHILS RELATIVE PERCENT (BEAKER) (test 1 % ltls=305) NEUTROPHILS ABSOLUTE COUNT (BEAKER) (test 7.88 K/ L 1.78-5.38 mtae=400) LYMPHOCYTES ABSOLUTE COUNT (BEAKER) (test 1.16 K/ L 1.32-3.57 eyut=353) MONOCYTES ABSOLUTE COUNT (BEAKER) (test 1.13 K/ L 0.30-0.82 idgx=899) EOSINOPHILS ABSOLUTE COUNT (BEAKER) (test 0.25 K/ L 0.04-0.54 zljz=147) BASOPHILS ABSOLUTE COUNT (BEAKER) (test 0.07 K/ L 0.01-0.08 puef=886) IMMATURE GRANULOCYTES-RELATIVE PERCENT (BEAKER) 7 % 0-1 (test onzo=6235) RAD, CHEST, 1 VIEW, NON [id number] 02:39:00Reason for exam:->advanced ET.Should this be performed at the bedside?->YesFINAL REPORT RAD, CHEST, 1 VIEW, NON DEPT INDICATION: advanced ET. COMPARISON: Prior day's exam FINDINGS: Portable frontal view of the chest. IMPRESSION: Support Lines: Slightinterval advancement of the endotracheal tube now terminating 4.7 cm above the ariel. Otherwise unchanged support apparatus. Lungs and pleura: Unchanged airspace and pleural opacities. No pneumothorax.Heart and mediastinum: Stable contours. Additional findings: None. Signed: [facility] Verified Date/Time: 01/18/2019 02:39:22 Reading Location: [address] Transitional Reading Room BLOOD GAS, [id number] 02:20:00 Test Item Value Reference Range Comments PH ARTERIAL (BEAKER) (test kgmy=889) 7.41 7.35-7.45 PCO2 ARTERIAL (BEAKER) (test zidq=465) 39 mmHg 35-45 PO2 ARTERIAL (BEAKER) (test gbcm=209) 89 mmHg 80-90 O2 SATURATION ARTERIAL (BEAKER) (test jicl=171) 96.8 % 96.0-97.0 HCO3 ARTERIAL (BEAKER) (test vczs=262) 24 mmol/L 21-29 BASE EXCESS ARTERIAL (BEAKER) (test yiaa=387) -0.4 mmol/L -2.0-3.0 PATIENT TEMPERATURE (BEAKER) (test ozdt=5060) 37.1 C FIO2 (BEAKER) (test fahv=4260) 50.0 % RAD, CHEST, 1 VIEW, NON [id number] 02:18:00Post-intubationReason for exam:-& gt;intubated, pneumoniaShould this be performed at the bedside?->YesFINAL REPORT RAD, CHEST, 1 VIEW, NON DEPT INDICATION: intubated , pneumonia COMPARISON: None available FINDINGS: Portable frontal view of the chest. IMPRESSION: Support Lines: Left upper extremity PICC with tip deflected up into the right subclavian vein. Enteric tube is seen coursing below the diaphragm with point of termination below the inferior margin of the film. Endotracheal tube terminates 6.8 cm above the ariel. Lungs and pleura: Left retrocardiac airspace is favored to represent partial left lower lobe collapse or superimposed infection cannot be excluded in the proper clinical setting. Bandlike airspace opacities in the right base. Small bilateral pleural effusions. No pneumothorax.Heart and mediastinum: Stable contours. Additional findings: Mild dextrocurvature of the thoracic spine. Signed: Lauren Christineep[place] Verified Date/Time: 01/18/2019 02:18:06 Reading Location: [address] Transitional Reading Room
[2019-07-12 12:16] LABS: Absolute Lymphocytes (CBC) 1.2 K/uL (0.7-4.9); Basophils % 0.3 % (0-1.3); Hematocrit 40.3 % (39.6-49.0); Lymphocytes % 20.2 % (15.3-44.8); MPV 7.8 fL (7.6-11.3); RBC Red Blood Cell Count 4.32 M/uL (4.33-5.43)
[2019-07-12 12:30] LABS: Urine Blood 2+ (NEG); Urine Glucose NEGATIVE (NEG); Urine Protein 1+ (NEG); Urine Specific Gravity 1.015 (1.005-1.030)
[2019-07-12 12:31] LABS: Urine Bacteria >50 /HPF (NONE SEEN)
[2019-07-12 12:32] LABS: Urine Culture Reflex Order NOT NEEDED
[2019-07-12 12:35] LABS: Potassium 4.2 mmol/L (3.5-5.1)
--- NOTE | 2019-07-12 12:39 | EDPHYS ---
Physician Documentation 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 12:01 Sent in by PCP due to complicated UTI, states resistant to oral abx. Patient reports rn fatigue but otherwise no vomiting/fever. States has sims in place for 10 years and can't tell me good reason why still in.. Onset: The symptoms/episode began/occurred at an unknown time. Severity of symptoms: At their worst the symptoms were mild in the emergency department the symptoms are unchanged. The patient has experienced similar episodes in the past. The patient has been recently seen by a physician:. Historical: - Allergies: 11:21 chlorpromazine HCl; hb 11:21 fluoxetine HCl; hb 11:21 paroxetine HCl; hb 11:21 Sulfa (Sulfonamide Antibiotics); hb 11:21 Demerol; hb - Immunization history:: Adult Immunizations up to date. - Social history:: Smoking status: Patient/guardian denies using tobacco. - Ebola Screening: : No symptoms or risks identified at this time. - Family history:: not pertinent. - Hospitalizations: : No recent hospitalization is reported. ROS: 12:01 Constitutional: Negative for fever, chills, and weight loss, Eyes: Negative for injury, rn pain, redness, and discharge, Neck: Negative for injury, pain, and swelling, Cardiovascular: Negative for chest pain, palpitations, and edema, Respiratory: Negative for shortness of breath, cough, wheezing, and pleuritic chest pain, Abdomen/GI: Negative for abdominal pain, nausea, vomiting, diarrhea, and constipation, MS/Extremity: Negative for injury and deformity, Neuro: Negative for headache, numbness, tingling, and seizure. Exam: 12:01 Constitutional: Morbidly obese male, no acute distress Head/Face: Normocephalic, rn atraumatic. ENT: MMM Cardiovascular: Regular rate and rhythm. No pulse deficits. Respiratory: Lungs have equal breath sounds bilaterally, clear to auscultation. No increased work of breathing, no retractions or nasal flaring. Abdomen/GI: large abdomen without tenderness MS/ Extremity: Pulses equal, no cyanosis Neuro: Awake and alert, GCS 15, oriented to person, place, time, and situation. Cranial nerves II-XII grossly intact. Vital Signs: 11:18 BP 109 / 59; Pulse 89; Resp 20; Temp 98.1; Pulse Ox 100% on R/A; Weight 158.76 kg; hb Height 5 ft. 8 in. (172.72 cm); Pain 8/10; 12:00 BP 116 / 66; Pulse 100; Resp 21; Pulse Ox 99% on R/A; Pain 8/10; hb 13:00 BP 112 / 64; Pulse 98; Resp 19; Pulse Ox 97% on R/A; hb 11:18 Body Mass Index 53.22 (158.76 kg, 172.72 cm) hb MDM: 11:07 Patient medically screened. rn 12:37 Differential Diagnosis ESBL UTI. Data reviewed: vital signs, nurses notes, lab test rn result(s), and as a result, I will admit patient. Counseling: I had a detailed discussion with the patient and/or guardian regarding: the historical points, exam findings, and any diagnostic results supporting the discharge/admit diagnosis, lab results, the need for further work-up and treatment in the hospital. Admission orders: after a detailed discussion of the patient's condition and case, the admit orders are written by me. ED course: Pt with ESBL, resistant to oral abx, will admit for IV abx. . 07/12 11:14 Order name: CBC with Diff; Complete Time: 12:40 rn 07/12 11:14 Order name: Basic Metabolic Panel; Complete Time: 12:40 rn 07/12 11:14 Order name: Urine Culture rn 07/12 11:14 Order name: Urine Microscopic Only; Complete Time: 12:40 rn 07/12 11:14 Order name: Blood Culture Adult (2) rn 07/12 11:14 Order name: Procalcitonin rn 07/12 11:14 Order name: IV Start; Complete Time: 12:07 rn 07/12 11:14 Order name: Urine Dipstick-Ancillary (obtain specimen); Complete Time: 12:06 rn 07/12 12:11 Order name: Urine Dipstick--Ancillary (enter results); Complete Time: 12:40 bd Administered Medications: 13:59 Drug: Cefepime 1 grams Route: IVPB; Rate: 200 ml/hr; Infused Over: 30 mins; Site: right sg forearm; Disposition: 07/12/19 12:38 Hospitalization ordered by Brittney Park for Inpatient Admission. Preliminary diagnosis are Urinary tract infection, site not specified, ESBL and arauz-resistant UTI. - Bed requested for Telemetry/MedSurg (Inpatient). - Status is Inpatient Admission. hb - Condition is Stable. - Problem is new. - Symptoms have improved. UTI on Admission? Yes Signatures: Dispatcher [employer] EDGrupo Cook RN RN sg Cliff Duarte MD MD rn Baxter, Heather, RN RN Corrections: (The following items were deleted from the chart) 13:58 12:38 Hospitalization Ordered by Brittney Park MD for Inpatient Admission. Preliminary sg diagnosis is Urinary tract infection, site not specified; ESBL and arauz-resistant UTI. Bed requested for Telemetry/MedSurg (Inpatient). Status is Inpatient Admission. Condition is Stable. Problem is new. Symptoms have improved. UTI on Admission? Yes. rn 14:26 13:58 07/12/2019 12:38 Hospitalization Ordered by Brittney Park MD for Inpatient hb Admission. Preliminary diagnosis is Urinary tract infection, site not specified; ESBL and arauz-resistant UTI. Bed requested for Telemetry/MedSurg (Inpatient). Status is Inpatient Admission. Condition is Stable. Problem is new. Symptoms have improved. UTI on Admission? Yes. sg
--- NOTE | 2019-07-12 12:39 | ER ---
Nurse's Notes [facility] Name: Elbert Miller Age: 79 yrs Sex: Male : 1940 Arrival Date: 07/12/2019 Time: 10:50 Bed 16 Private MD: Diagnosis: Urinary tract infection, site not specified;ESBL and arauz-resistant UTI Presentation: 07/12 10:40 Presenting complaint: EMS states: Sent by [facility] for positive urine culture hb results: e. coli. 10:40 Method Of Arrival: EMS: [facility] 10:40 Transition of care: patient was not received from another setting of care. Onset of hb symptoms was July 12, 2019. Risk Assessment: Do you want to hurt yourself or someone else? Patient reports no desire to harm self or others. Initial Sepsis Screen: Does the patient meet any 2 criteria? No. Patient's initial sepsis screen is negative. Does the patient have a suspected source of infection? No. Patient's initial sepsis screen is negative. Care prior to arrival: None. 10:40 Acuity: [place] 3 hb Triage Assessment: 10:41 General: Appears in no apparent distress. Behavior is calm, cooperative. Pain: Pain hb currently is 8 out of 10 on a pain scale. EENT: No signs and/or symptoms were reported regarding the EENT system. Neuro: Level of Consciousness is awake, alert, obeys commands, Oriented to person, place, time, situation. Cardiovascular: Heart tones S1 S2 present Capillary refill < 3 seconds Patient's skin is warm and dry. Respiratory: Airway is patent Respiratory effort is even, unlabored, Respiratory pattern is regular, symmetrical, Breath sounds are clear bilaterally. GI: No signs and/or symptoms were reported involving the gastrointestinal system. : No signs and/or symptoms were reported regarding the genitourinary system. Derm: Skin is pink, warm \T\ dry. Musculoskeletal: Reports chronic pain in back, left ankle, left knee, sacrum. Historical: - Allergies: 11:21 chlorpromazine HCl; hb 11:21 fluoxetine HCl; hb 11:21 paroxetine HCl; hb 11:21 Sulfa (Sulfonamide Antibiotics); hb 11:21 Demerol; hb - Immunization history:: Adult Immunizations up to date. - Social history:: Smoking status: Patient/guardian denies using tobacco. - Ebola Screening: : No symptoms or risks identified at this time. - Family history:: not pertinent. - Hospitalizations: : No recent hospitalization is reported. Screenin:45 Abuse screen: Denies threats or abuse. Denies injuries from another. Nutritional hb screening: No deficits noted. Tuberculosis screening: No symptoms or risk factors identified. Fall Risk Total Lincoln Fall Scale indicates High Risk Score (45 or more points). Fall prevention measures have been instituted. Side Rails Up X 2 Frequent Obs/Assessments Occuring Family Present and informed to notify staff if the need to leave the bedside As available patient and family educated on Fall Prevention Program and Strategies. Assessment: 10:45 General: see triage assessment. hb 11:31 Reassessment: called [facility] and spoke with Vannessa, says, will let MARIO to them and will they hj will fax results here in ED:. 11:45 Reassessment: Patient appears in no apparent distress at this time. No changes from hb previously documented assessment. Patient and/or family updated on plan of care and expected duration. Pain level reassessed. Patient is alert, oriented x 3, equal unlabored respirations, skin warm/dry/pink. 12:45 Reassessment: Patient appears in no apparent distress at this time. No changes from hb previously documented assessment. Patient and/or family updated on plan of care and expected duration. Pain level reassessed. Patient is alert, oriented x 3, equal unlabored respirations, skin warm/dry/pink. Vital Signs: 11:18 BP 109 / 59; Pulse 89; Resp 20; Temp 98.1; Pulse Ox 100% on R/A; Weight 158.76 kg; hb Height 5 ft. 8 in. (172.72 cm); Pain 8/10; 12:00 BP 116 / 66; Pulse 100; Resp 21; Pulse Ox 99% on R/A; Pain 8/10; hb 13:00 BP 112 / 64; Pulse 98; Resp 19; Pulse Ox 97% on R/A; hb 11:18 Body Mass Index 53.22 (158.76 kg, 172.72 cm) hb ED Course: 10:50 Patient arrived in ED. hj 11:07 Cliff Duarte MD is Attending Physician. rn 11:17 Janeth Mohr RN is Primary Nurse. hb 11:18 Triage completed. hb 11:18 Arm band placed on. hb 11:45 Patient has correct armband on for positive identification. Placed in gown. Bed in low hb position. Call light in reach. Side rails up X2. 11:45 Inserted saline lock: 24 gauge in left forearm, using aseptic technique. Blood hb collected. 12:38 Brittney Park MD is Hospitalizing Provider. rn 14:25 No provider procedures requiring assistance completed. Patient admitted, IV remains in hb place. Administered Medications: 13:59 Drug: Cefepime 1 grams Route: IVPB; Rate: 200 ml/hr; Infused Over: 30 mins; Site: right sg forearm; Outcome: 12:38 Decision to Hospitalize by Provider. rn 14:25 Admitted to Tele accompanied by tech, family with patient, via stretcher, with chart. hb 14:25 Condition: stable 14:25 Instructed on the need for admit, Demonstrated understanding of instructions. 14:26 Patient left the ED. hb Signatures: Grupo Wharton RN RN sg Nieto, Roman, MD MD rn Joaquin, Henry, RN RN hj Baxter, Heather, RN RN hb
[2019-07-12] MEDS ORDERED: CEFEPIME 1 GM/100 ML BAG IV ONE (13:58)
[2019-07-12] MEDS ORDERED: ONDANSETRON 4 MG/2 ML VIAL IV PRN (14:27)
[2019-07-12] MEDS ORDERED: ACETAMINOPHEN 500 MG TAB PO PRN (14:27)
[2019-07-12] MEDS: HYDROCODONE/APAP 7.5/325 MG TAB PO PRN ×3 (15:18→23:30)
[2019-07-12 15:20] VITALS: BMI 52.3
[2019-07-12] MEDS: Meropenem 1,000 MG in NA CHLORIDE 0.9% 100 ML IV SCH ×2 (15:35→21:30)
[2019-07-12] MEDS: NA CHLORIDE 0.9% 1,000 ML IV SCH (15:54)
[2019-07-12 16:06] LABS: Protime INR 1.99
--- NOTE | 2019-07-12 16:53 | CON ---
History Of Present Illness: This is a 79-year-old male coming in with ESBL E coli infection in the [facility]. Patient has significant history of indwelling Hannah catheter for 10+ years, morbid obesity, os teoarthritis, and lumbar surgery in the past. Social History: Nonsmoker, nondrinker. Medications: See MAR. Allergies: PLAVIX AND PAROXETINE. Family History: Noncontributory. Review of Systems: A 10-point review was performed. Physical Examination: General: Patient is lying on examining table, not in any acute cardiopulmonary distress. Vital Signs: Reviewed. HEENT: Unremarkable. Neck: Supple. Lungs: Basal crackles. Heart: S1, S2. Regular. Abdomen: Soft. Bowel sounds present. Obese. Extremities: 1+ edema. Genitourinary: Hannah catheter in place with small amount of urine outside the catheter, in the perin eal area also noted. Laboratory Data: WBC 5.9, hemoglobin 13.5, platelets 224. Sodium 136, potassium 4.2, chloride 102, bicarb 27, BUN 30, creatinine 1.87, glucose is 221. UA shows wbc's more than 50, ESBL E coli sensiti ve to imipenem. Assessment And Plan: Escherichia coli extended spectrum beta-lactamase urinary tract infection secon mari to indwelling Hannah catheter. We will recommend to start patient on meropenem 500 mg q.12 hours . Because of his renal insufficiency, monitor kidney function on a regular basis. Continue antibiot ic and supportive care for 2 weeks. We will follow the patient closely. Patient is requesting to go to home to get a home health company assigned to him. We will follow patient as needed. Thank you Dr. Park for consult. NF/MODL Voice ID: [id number] Report ID: [id number]
[2019-07-12] MEDS: WARFARIN SODIUM 3 MG TAB PO SCH (17:21)
[2019-07-12] MEDS: GABAPENTIN 300 MG CAP PO SCH (20:10)
[2019-07-12] MEDS: OXYBUTYNIN CHLORIDE 5 MG TAB PO SCH (20:10)
[2019-07-12] MEDS: METOPROLOL TAR 25 MG TAB PO SCH (20:10)
[2019-07-12] MEDS ORDERED: Meropenem 1000 MG/VIAL IV SCH (21:00)
[2019-07-12] MEDS: TRAZODONE 50 MG TABLET PO SCH (21:30)
--- NOTE | 2019-07-12 22:17 | EKG ---
Test Date: 2019-07-12 Test Time: 15:27:50 Tree Farmer: THADDEUS MEASUREMENT RESULTS: Intervals: Rate: 104 MO: QRSD: 144 QT: 394 QTc: 518 [place]: P: MO: QRS: -18 T: 77 INTERPRETIVE STATEMENTS: Atrial fibrillation with rapid ventricular response with premature ventricular or aberrantly conducted complexes Right bundle branch block Abnormal ECG Compared to ECG 01/09/2019 17:30:56 Right bundle-branch block now present Incomplete right bundle-branch block no longer present T-wave abnormality no longer present Electronically Signed On 07-12-19 22:16:37 CDT by Darrell Dunlap
--- NOTE | 2019-07-12 23:54 | HP ---
Date of Admission: 07/12/2019 Consultants: Dr. Alvarado with Urology. Primary Care Physician: Out of town. Chief Complaint: Abnormal lab and urine culture, dysuria. Code Status: Full code. History Of Present Illness: Patient is a 79-year-old morbidly obese male who is bedbound, does not a mbulate, has a chronic indwelling Hannah catheter for unclear reasons other than his immobility and ob esity with past medical history of hypertension, coronary artery disease, atrial fibrillation, antico agulated, history of PE/DVT, chronic lymphedema, who comes in straight from his urologist's office fo r abnormal urine culture growing ESBL. Patient also reported some dysuria and leaking around the Fol ey catheter. Patient previously has had recurrent UTIs and has become septic to the point of going i nto coma and complications thereof. Therefore, patient now has routine UAs as soon as he feels any s ymptoms. Unclear why his Hannah catheter is still in place other than his immobility. Patient's symp toms were constant, moderate, progressively worsening. His workup revealed a creatinine of 1.87, whi ch is still above his baseline. Patient previously when transferred to [facility] in December had di alysis, but was not placed on chronic dialysis. Patient's UA was positive. Patient was then referre d for admission. When seen in the ER, he was awake, alert, oriented x3, in some mild distress. Past Medical History: Hypertension; coronary artery disease; neuropathy; chronic atrial fibrillation , on anticoagulation; history of DVT and PE in 1984 and 1994; congestive heart failure; chronic indwe lling catheter; spinal stenosis of the back; chronic back pain; GERD; iron deficiency anemia, multipl e hernias. Past Surgical History: Cholecystectomy, surgery to the left eye repair, lazy eye, IVC Tarsha matteo ter placement, history of stomach stapling, history of left knee surgery, bilateral shoulder repair. Social History: Patient denies any tobacco use or alcohol use or illicit drug use. Patient lives at home. Has home health aides and caregivers. He is a . No children. Patient is retired. Use d to take [facility] of the [facility]. Family History: Father had heart disease, hypertension, and GI disease. Allergies: TO SULFA DRUGS, PAROXETINE, PLAVIX, THORAZINE, PROZAC. Medications: List reviewed. Review of Systems: Ten-point system reviewed, negative except as per HPI. Physical Examination: Vital Signs: Blood pressure 109/59, pulse 89, respirations 20, temperature 98.1, O2 of 100% on room air. BMI is 53. General: Awake, alert, oriented, elderly male, morbidly obese, ill appearing. HEENT: Normocephalic, atraumatic. PERRLA. EOMI. Moist mucous membranes. Oropharynx is clear. Po or dentition. Conjunctivae are anicteric. Neck: Supple. No JVD. Trachea midline. CV: S1, S2, irregularly irregular. Peripheral pulses present. RESPIRATORY: Moving air well, bilateral apices. Diminished breath sounds at the bases. Gastrointestinal: Abdomen is soft, obese, with multiple ventral hernias, large. Positive bowel soun ds. No guarding or rigidity. Extremities: No clubbing or cyanosis. Patient has peripheral edema. Neuro: Cranial nerves 2 through 12 intact grossly. No focal neurological deficits. Speech is eugene l. Skin: Patient has chronic venous stasis changes of bilateral lower extremities. Also has some excor iation of the scrotum. Patient also has a wound on the right dorsum of the hand covered with special ty gauze. Psych: Mood is okay. Affect is full. Insight and judgment are good. Laboratory Data: UA: 2+ blood, positive nitrite, 3+ leukocyte esterase, 5-10 rbc's, greater than 50 wbc's, greater than 50 bacteria. Sodium 136, potassium 4.2, chloride 102, CO2 of 27. BUN 30, creat inine 1.87, glucose 221, calcium 9.3. Procalcitonin 0.15. WBC 5.9, H and H 13.5 and 40.3, platelets 224, neutrophils 69%. Assessment: 79-year-old male with: 1.Acute cystitis with hematuria secondary to extended spectrum beta-lactamase producing bacteria. U rine culture from urologist's office is in the chart. We will continue on meropenem renally dosed. We will consult ID. Patient will need PICC line and long-term IV antibiotics. Patient does have ind welling Hannah catheter, likely is at risk for multi-drug resistant organisms. 2.Acute kidney injury. Creatinine is improving, now back to baseline. We will continue with close monitoring. Avoid NSAIDs. Continue with IV fluids. 3.Morbid obesity. Body mass index of 53. 4.Chronic back pain, midline, without sciatica. We will start on [place]. 5.Essential hypertension. We will resume home medications as appropriate. 6.History of pulmonary embolism and deep venous thrombosis, on chronic anticoagulation. 7.Atrial fibrillation, chronic. We will continue with Coumadin. We will monitor INR. 8.Chronic lymphedema. 9.Coronary artery disease, knik artery and knik heart without angina, stable. 10.Gastroesophageal reflux disease without esophagitis. 11.Congestive heart failure, diastolic dysfunction. We will continue with strict I's and O's. Leila tor I's and O's and continue with fluid restriction. 12.Deep vein thrombosis prophylaxis. Patient is already on Coumadin. Plan: Check chest x-ray and EKG. Obtain PICC line. [facility]. Patient prefers to be at home. Has had IV antibiotics previ ously at home. He has [facility] and wants to have IV infusions through them. Does have caregi vers around the house as well. We will have web content & social media manager consult for IV infusion set up, physical t herapy consultation. Patient is very weak, unable to transfer to wheelchair. /MEGHANA Voice ID: [id number]
[2019-07-13] MEDS: HYDROCODONE/APAP 7.5/325 MG TAB PO PRN (03:33)
[2019-07-13] MEDS: NA CHLORIDE 0.9% 1,000 ML IV SCH ×3 (03:47→16:52)
[2019-07-13 05:03] LABS: Absolute Lymphocytes (CBC) 1.7 K/uL (0.7-4.9); Basophils % 0.5 % (0-1.3); Hematocrit 36.8 % (39.6-49.0); Lymphocytes % 27.7 % (15.3-44.8); MPV 7.4 fL (7.6-11.3); RBC Red Blood Cell Count 3.89 M/uL (4.33-5.43)
[2019-07-13 05:10] LABS: Protime INR 2.36
[2019-07-13 05:20] LABS: Albumin 2.5 g/dL (3.4-5.0); Bilirubin Total 0.4 mg/dL (0.2-1.0); Potassium 4.2 mmol/L (3.5-5.1); Protein, Total 6.7 g/dL (6.4-8.2)
[2019-07-13] MEDS: FERROUS SULFATE 325 MG TAB PO SCH (09:00)
[2019-07-13] MEDS: Meropenem 1,000 MG in NA CHLORIDE 0.9% 100 ML IV SCH ×2 (09:00→21:26)
[2019-07-13] MEDS: METOPROLOL TAR 25 MG TAB PO SCH ×2 (09:00→21:27)
[2019-07-13] MEDS: GABAPENTIN 300 MG CAP PO SCH ×3 (09:00→21:27)
[2019-07-13] MEDS: OXYBUTYNIN CHLORIDE 5 MG TAB PO SCH ×2 (09:00→21:27)
[2019-07-13] MEDS: SERTRALINE HCL 50 MG TAB PO SCH (09:00)
[2019-07-13] MEDS: PANTOPRAZOLE 40MG TABLET PO SCH (09:01)
[2019-07-13] MEDS: HYDROCODONE/APAP 10/325 TAB PO PRN ×3 (09:11→19:42)
--- NOTE | 2019-07-13 10:45 | RAD REPORT ---
EXAM DESCRIPTION: RAD - Chest Single View - 07/12/2019 10:38 pm CLINICAL HISTORY: 79 years Male, PICC Placement COMPARISON: 01/13/2019. FINDINGS: There is mild cardiomegaly. There is been placement of right-sided PICC line with distal tip in the proximal superior vena cava. The lung montgomery are clear of active infiltrates. The pulmonary vascularity is unremarkable. No active pleural disease is present. IMPRESSION: 1. Successful placement of right-sided PICC line. Electronically signed by: Gilberto Hernandez MD 07/12/2019 10:45 PM CDT Due to temporary technical issues with the PACS/Fluency reporting system, reports are being signed by the in house radiologist as a courtesy to ensure prompt reporting. The interpreting radiologist is f ully responsible for the content of the report.
--- NOTE | 2019-07-13 12:10 | PN ---
Date of Progress Note: 07/13/2019 Patient seen and examined. Chart reviewed and case discussed with RN. The patient overall doing well. No specific complaints. Still has urinary catheter leak. Still having some dysuria. Medications: List reviewed. Physical Examination: Vital Signs: Temperature 97, heart rate 107, blood pressure 146/63, respirations 15. O2 at 99% on room air. General: Awake alert oriented x3. Elderly male, morbidly obese. CV: S1, S2, irregularly irregular. Peripheral pulses present. Respiratory: Moving air well bilaterally. No wheezing. Minimally diminished breath sounds at the bases. Extremities: No clubbing or cyanosis. The patient has diffuse edema. Neurologic: Nonfocal. The patient does have generalized weakness. Laboratory Data: Sodium 139, potassium 4.2, chloride 105, CO2 of 29, BUN 29, creatinine 1.73, glucose 154. Calcium 8.7, albumin 2.5. WBC 6.2, H and H 12.3 and 36.8, platelets 186. Urine culture growing out 4+ gram-negative rods. Culture from outside facility shows ESBL producing organism. Blood cultures are pending. Assessment And Plan: A 79-year-old male with: 1. Acute cystitis with hematuria secondary to ESBL producing bacteria. Repeat cultures in the hospital are currently pending, so far growing out gram- negative rods. We will continue with meropenem, renally dosed. Appreciate ID consultation. The patient will also be seen by Dr. Alvarado with Urology. The patient is at risk for multi-drug resistant organisms. Has indwelling chronic Hannah catheter. 2. Acute kidney injury. Creatinine improving. We will continue to monitor. Avoid NSAIDs. Continue IV fluids. 3. Morbid obesity. BMI 52.4. 4. Right bundle-branch block. 5. Chronic back pain, midline, without sciatica. Continue with [place]. Adjust dose from 7.5 to 10. The patient is morbidly obese and pain is not well controlled. 6. Essential hypertension, stable. 7. History of PE and DVT, on chronic anticoagulation. 8. Atrial fibrillation, chronic. Continue with Coumadin. Monitor INR. Currently in therapeutic range at 2.36. 9. Chronic lymphedema. 10. Coronary artery disease, [place] artery and [place] heart without angina, stable. 11. Gastroesophageal reflux disease without esophagitis, stable. 12. Congestive heart failure, diastolic dysfunction. Continue with fluid restriction. Monitor I's and O's. 13. Deep venous thrombosis prophylaxis. The patient is already on Coumadin. Disposition: Discharge home with home health and IV infusion therapy once cleared by Urology and antibiotics have been set up. LORY Voice ID: [id number] Report ID: [id number] MTDFernanda
--- NOTE | 2019-07-13 13:00 | CON ---
This 79-year-old morbidly obese patient, is a patient of Dr. Stoner, urologist in [place], who was bed bound. The patient is bed-bound, does not ambulate, has a chronic indwelling Hannah catheter for 11 years for convenience. He does not get up. He cannot make it to the bathroom. He goes, he does have bowel movement in the bed. His sorting livestock worker cleans him up. Hannah catheter is changed once a month . He came in for UTI with ESBL. He is currently on IV antibiotics. I was called because he was hav ing some spasm and urine was leaking around the Hannah catheter. I came by Hannah catheter and air loc ked the drain immediately once we lifted the drain. He will follow up with followup with Dr. Reyes, his urologist as an outpatient. Past Medical History: Hypertension, coronary artery disease, neuropathy, chronic atrial fibrillation , anticoagulation, DVT and PE x2, congestive heart failure, chronic indwelling catheter, spinal steno sis of the back, chronic back pain. GERD, iron deficiency, multiple hernias. Past Surgical History: Cholecystectomy. Surgery to the left eye, lazy eye, IVC Tarsha filter, h istory of stomach stapling, huge abdominal hernia towards the left side of the bowel. History of lef t knee surgery, bilateral knee repair. Social History: Lives at home. He is on the bed. Pharmacy Operations Manager takes care of him, cleans and feed him and everything in the bed. Family History: Heart disease, hypertension, GI disease. Allergies: TO SULFA, PAROXETINE, PLAVIX, THORAZINE, PROZAC. Medications: List reviewed. Review of Systems: Review of 10-point review of systems otherwise negative. Physical Examination: Vital Signs: He was afebrile, stable. General: He is lying in bed. Hannah catheter was draining whitish-looking urine, pus but some clear urine behind that. HEENT: Atraumatic and normocephalic. Dentition poor. Neck: Supple. No JVD. Cardiovascular: S1, S2. Irregularly irregular. Pulse present. Extremities: No clubbing, no cyanosis. Neurological: Grossly intact. Skin: No venous stasis. Laboratory Data: Review. Urine culture is growing 4+ gram-negative rods. Electrolytes reviewed. Keena britoient's white count was normal at 6.2, H and H 12 and 36, platelet count 186. Assessment: Acute cystitis with ESBL. Continue IV meropenem for 2 weeks. Follow up with urologist. Flush Hannah catheter p.r.n. to keep patent. If this does not work he may need a new catheter to be changed, but is best to be this to be done during the mornings, not at night. Thank you very much. SALLIE/MEGHANA Voice ID: [id number] Report ID: [id number]
[2019-07-13] MEDS: WARFARIN SODIUM 3 MG TAB PO SCH (16:51)
[2019-07-13] MEDS: TRAZODONE 50 MG TABLET PO SCH (21:27)
[2019-07-14] MEDS: HYDROCODONE/APAP 10/325 TAB PO PRN (01:21)
[2019-07-14 05:14] LABS: Absolute Lymphocytes (CBC) 1.8 K/uL (0.7-4.9); Basophils % 0.5 % (0-1.3); Hematocrit 35.5 % (39.6-49.0); Lymphocytes % 30.2 % (15.3-44.8); MPV 7.7 fL (7.6-11.3)
[2019-07-14 05:22] LABS: Albumin 2.4 g/dL (3.4-5.0); Bilirubin Total 0.3 mg/dL (0.2-1.0); Potassium 4.2 mmol/L (3.5-5.1); Protein, Total 6.5 g/dL (6.4-8.2)
[2019-07-14 06:05] LABS: Protime INR 2.42
[2019-07-14] MEDS: NA CHLORIDE 0.9% 1,000 ML IV SCH (06:27)
[2019-07-14] MEDS: OXYBUTYNIN CHLORIDE 5 MG TAB PO SCH (08:04)
[2019-07-14] MEDS: PANTOPRAZOLE 40MG TABLET PO SCH (08:04)
[2019-07-14] MEDS: METOPROLOL TAR 25 MG TAB PO SCH (08:04)
[2019-07-14] MEDS: GABAPENTIN 300 MG CAP PO SCH (08:04)
[2019-07-14] MEDS: FERROUS SULFATE 325 MG TAB PO SCH (08:04)
[2019-07-14] MEDS: SERTRALINE HCL 50 MG TAB PO SCH (08:05)
[2019-07-14] MEDS: Meropenem 1,000 MG in NA CHLORIDE 0.9% 100 ML IV SCH (08:05)
[2019-07-14 08:06] VITALS: BP 117/64
[2019-07-14 08:09] VITALS: O2SAT 97
[2019-07-14] MEDS ORDERED: BACI/NEOMYCIN/POLY OINT 15GM TOP SCH (09:00)
[2019-07-14 09:34] VITALS: TEMP 97
--- NOTE | 2019-07-14 12:29 | DS ---
Date of Discharge: 07/14/2019 Consultants: Dr. Alvarado with Urology and Dr. Estrada with Infectious Disease. Admitting Diagnoses: 1.Acute cystitis with hematuria secondary to. 2.extended spectrum beta-lactamase. 3.producing bacteria. 4.Acute kidney injury. 5.Morbid obesity. BMI 53. 6.Chronic back pain, midline, without sciatica. 7.Essential hypertension. 8.History of pulmonary embolism and deep venous thrombosis, on chronic anticoagulation. 9.Atrial fibrillation, chronic on Coumadin. 10.Chronic lymphedema. 11.Coronary artery disease nome artery and nome heart without angina. 12.Gastroesophageal reflux disease without esophagitis. 13.Diastolic congestive heart failure, chronic. Discharge Diagnoses: 1.Acute cystitis with hematuria secondary to extended spectrum beta-lactamase producing bacteria. W e will continue with meropenem for 2 weeks. 2.Acute kidney injury, improving. 3.Morbid obesity. BMI of 52.4. 4.Right bundle-branch block. 5.Chronic back pain, midline, without sciatica. 6.Generalized weakness with disuse myopathy. The patient unable to transfer from bed to wheelchair. 7.Essential hypertension, stable. 8.History of pulmonary embolism and deep venous thrombosis, on Coumadin. 9.Atrial fibrillation, chronic, on Coumadin. 10.Chronic lymphedema. 11.Coronary artery disease, nome artery, and nome heart without angina. 12.Gastroesophageal reflux disease without esophagitis, stable. 13.Chronic diastolic heart failure, stable. Hospital Course: The patient is a 79-year-old male with multiple comorbid conditions including hyper tension, heart disease, neuropathy, atrial fibrillation on Coumadin, history of thromboembolism, CHF, indwelling catheter, due to immobility, comes in due to ESBL producing bacteria and his urine cultur e sent from his urologist's office, Dr. Stoner. The patient was started on meropenem. ID and Urolo gy were consulted. The patient did have a leak around his Hannah catheter. Hannah catheter was adjust ed by Dr. Alvarado. The patient did well over the course of the hospital stay. His kidney function imp roved. He did not have any signs of sepsis. His white blood cell count was normal. Patient's INR a lso remained within therapeutic range. His lactate was initially elevated, however, procalcitonin wa s negative. Patient responded well to treatment. Repeat culture also grew out Proteus and E coli, w hich were both sensitive to meropenem. Blood cultures remain negative. The patient was then cleared for discharge. He did not wish to go to LTAC. He preferred to have IV infusions at home through [facility]. He already has caregivers at home. IV antibiotics were set up through [facility] and he was discharged on meropenem for 2 weeks as well as topical wound care. Followup: Follow up with primary care physician in 2 to 3 days. Follow up with primary urologist, Fernanda Stoner in 2 weeks. Return to ER for worsening condition. Hannah catheter care as per Dr. Alvarado's orders. Diet: Heart healthy fluid-restricted diet. Activity: Fall precautions. Physical Examination: General: Awake, alert, oriented x3. Morbidly obese male. CV: S1, S2. Irregularly irregular. Peripheral pulses present. Respiratory: Moving air well bilaterally. Abdomen: Abdomen is soft, nontender, nondistended. Positive bowel sounds. Multiple ventral hernias present. Extremities: No clubbing or cyanosis. The patient has diffuse peripheral edema. Skin: Chronic venous stasis changes of the lower extremities. Neurologic: Nonfocal. Total time spent discharging the patient was 38 minutes. /MEGHANA Voice ID: [id number] Report ID: [id number]
== END 2019-07-14 09:11 | disposition home health service (06) | DRG 690 ==
LOC: ER 10:51 → 2ND 13:49
PROVIDERS: ADMIT Family Medicine; ATTEND Family Medicine
PROC: 02HV33Z Insertion of Infusion Device into Superior Vena Cava, Percutaneous Approach (ICD-10-PCS; principal; 2019-07-12)
DX: N30.01 Acute cystitis with hematuria (principal); N17.9 Acute kidney failure, unspecified; Z68.43 Body mass index [BMI] 50.0-59.9, adult; I50.32 Chronic diastolic (congestive) heart failure; B96.89 Other specified bacterial agents as the cause of diseases classified elsewhere; Z16.12 Extended spectrum beta lactamase (ESBL) resistance; E66.01 Morbid (severe) obesity due to excess calories; I45.10 Unspecified right bundle-branch block; M54.9 Dorsalgia, unspecified; R53.1 Weakness; G72.9 Myopathy, unspecified; I48.2 Chronic atrial fibrillation; B96.20 Unspecified Escherichia coli [E. coli] as the cause of diseases classified elsewhere; B96.4 Proteus (mirabilis) (morganii) as the cause of diseases classified elsewhere; T83.031A Leakage of indwelling urethral catheter, initial encounter; I89.0 Lymphedema, not elsewhere classified; I25.10 Atherosclerotic heart disease of native coronary artery without angina pectoris; I11.0 Hypertensive heart disease with heart failure; Z86.718 Personal history of other venous thrombosis and embolism; Z86.711 Personal history of pulmonary embolism; Z79.01 Long term (current) use of anticoagulants; Z96.0 Presence of urogenital implants; Z74.01 Bed confinement status; Z88.2 Allergy status to sulfonamides; Y73.8 Miscellaneous gastroenterology and urology devices associated with adverse incidents, not elsewhere classified
CPT/HCPCS: 36415; 71045; 80048; 80053; 81003; 81015; 83605; 84145; 85025; 85610; 87040; 87077; 87086; 87088; 87186; 93005; 94760; 96374; 99285; J0692; J7030

== ENCOUNTER 2019-12-13 14:37 | Inpatient (IN) | payer OTHER ==
--- OUTSIDE RECORDS SUMMARY | 2019-12-13 14:42 | XMS REPORT ---
:1940 Author Organization [facility] Address [address] [place] [address] Care Team Providers Name Role Phone TEN JASSO Unavailable Unavailable Problems This patient has no known problems. Allergies, Adverse Reactions, Alerts This patient has no known allergies or adverse reactions. Medications This patient has no known medications. Results Test Description Test Time Test Comments Text Results Atomic Results Result Comments POCT-GLUCOSE METER 2019-01-30 17:08:00 Test Item Value Reference Range Comments POC-GLUCOSE METER (BEAKER) (test 171 mg/dL 70-110 TESTED AT [address] vlkw=6541) [facility] [address] POCT-GLUCOSE [id number] 12:25:00 Test Item Value Reference Range Comments POC-GLUCOSE METER (BEAKER) 242 mg/dL 70-110 TESTED AT [address] (test nvsz=5382) [facility] [address] POCT-GLUCOSE [id number] 09:09:00 Test Item Value Reference Range Comments POC-GLUCOSE METER (BEAKER) 181 mg/dL 70-110 TESTED AT [address] (test kojy=3408) [facility] [address] [id number] 05:31:00 Test Item Value Reference Range Comments MAGNESIUM (BEAKER) (test mmhl=207) 1.7 mg/dL 1.6-2.6 BASIC METABOLIC [id number] 05:31:00 Test Item Value Reference Range Comments SODIUM (BEAKER) (test 137 meq/L 136-145 daok=763) POTASSIUM (BEAKER) (test 4.2 meq/L 3.5-5.1 afov=286) CHLORIDE (BEAKER) (test 100 meq/L 98-107 hjqe=531) CO2 (BEAKER) (test 27 meq/L 22-29 rokn=277) BLOOD UREA NITROGEN 49 mg/dL 7-21 (BEAKER) (test nsrm=423) CREATININE (BEAKER) (test 1.73 mg/dL 0.57-1.25 ltfv=130) GLUCOSE RANDOM (BEAKER) 192 mg/dL 70-105 (test noiw=901) CALCIUM (BEAKER) (test 9.7 mg/dL 8.4-10.2 yqgh=202) EGFR (BEAKER) (test 39 mL/min/1.73 sq m ESTIMATED GFR IS NOT rakj=3361) ACCURATE CREATININE CLEARANCE IN PREDICTING GLOMERULAR FILTRATION RATE. ESTIMATED GFR IS NOT APPLICABLE FOR DIALYSIS PATIENTS. PROTHROMBIN TIME/[id number] 05:25:00 Test Item Value Reference Range Comments PROTIME (BEAKER) (test mgzs=229) 32.7 seconds 11.7-14.7 INR (BEAKER) (test ytdg=659) 3.2 <=5.9 RECOMMENDED COUMADIN/WARFARIN INR THERAPY RANGESSTANDARD DOSE: 2.0 - 3.0 Includes: PROPHYLAXIS forvenous thrombosis, systemic embolization; TREATMENT for venous thrombosis and/or pulmonary embolus.HIGH RISK: Target INR is 2.5-3.5 for patients with mechanical heart valves.While on warfarin.CBC W/PLT COUNT &amp ; AUTO [id number] 05:13:00 Test Item Value Reference Range Comments WHITE BLOOD CELL COUNT (BEAKER) (test typz=758) 6.8 K/ L 3.5-10.5 RED BLOOD CELL COUNT (BEAKER) (test sfiy=831) 3.42 M/ L 4.63-6.08 HEMOGLOBIN (BEAKER) (test rtzk=696) 10.7 GM/DL 13.7-17.5 HEMATOCRIT (BEAKER) (test xnyr=476) 34.5 % 40.1-51.0 MEAN CORPUSCULAR VOLUME (BEAKER) (test tpwo=895) 100.9 fL 79.0-92.2 MEAN CORPUSCULAR HEMOGLOBIN (BEAKER) (test 31.3 pg 25.7-32.2 qenl=661) MEAN CORPUSCULAR HEMOGLOBIN CONC (BEAKER) (test 31.0 GM/DL 32.3-36.5 cnbq=072) RED CELL DISTRIBUTION WIDTH (BEAKER) (test 14.0 % 11.6-14.4 vinq=804) PLATELET COUNT (BEAKER) (test mzuw=813) 196 K/CU MM 150-450 MEAN PLATELET VOLUME (BEAKER) (test fwmy=649) 10.5 fL 9.4-12.4 NUCLEATED RED BLOOD CELLS (BEAKER) (test 0 /100 WBC 0-0 mksc=550) NEUTROPHILS RELATIVE PERCENT (BEAKER) (test 56 % nlfl=736) LYMPHOCYTES RELATIVE PERCENT (BEAKER) (test 24 % kxbw=624) MONOCYTES RELATIVE PERCENT (BEAKER) (test 14 % itlp=034) EOSINOPHILS RELATIVE PERCENT (BEAKER) (test 4 % fiuk=884) BASOPHILS RELATIVE PERCENT (BEAKER) (test 1 % yegb=701) NEUTROPHILS ABSOLUTE COUNT (BEAKER) (test 3.81 K/ L 1.78-5.38 aqsn=975) LYMPHOCYTES ABSOLUTE COUNT (BEAKER) (test 1.64 K/ L 1.32-3.57 fyrb=710) MONOCYTES ABSOLUTE COUNT (BEAKER) (test 0.98 K/ L 0.30-0.82 sukh=421) EOSINOPHILS ABSOLUTE COUNT (BEAKER) (test 0.29 K/ L 0.04-0.54 udna=496) BASOPHILS ABSOLUTE COUNT (BEAKER) (test 0.05 K/ L 0.01-0.08 hire=714) IMMATURE GRANULOCYTES-RELATIVE PERCENT (BEAKER) 1 % 0-1 (test ipfu=7076) POCT-GLUCOSE [id number] 22:51:00 Test Item Value Reference Range Comments POC-GLUCOSE METER (BEAKER) 227 mg/dL 70-110 TESTED AT [address] (test tzbh=3019) [place] [address] POCT-GLUCOSE [id number] 17:24:00 Test Item Value Reference Range Comments POC-GLUCOSE METER (BEAKER) 236 mg/dL 70-110 TESTED AT [address] (test pjxr=4004) [place] [id number] URINALYSIS W/ [id number] 14:49:00 Test Item Value Reference Range Comments COLOR (BEAKER) (test kfyg=431) Light Yellow CLARITY (BEAKER) (test wlci=854) Hazy SPECIFIC GRAVITY UA (BEAKER) (test gjaw=314) 1.010 1.001-1.035 PH UA (BEAKER) (test xvfs=879) 8.0 5.0-8.0 PROTEIN UA (BEAKER) (test pbyz=191) 10 mg/dL Negative GLUCOSE UA (BEAKER) (test uufr=967) Negative Negative KETONES UA (BEAKER) (test btlw=878) Negative Negative BILIRUBIN UA (BEAKER) (test rmrx=956) Negative Negative BLOOD UA (BEAKER) (test aiek=744) Small Negative NITRITE UA (BEAKER) (test kmjl=334) Negative Negative LEUKOCYTE ESTERASE UA (BEAKER) (test kluc=675) Large Negative UROBILINOGEN UA (BEAKER) (test lyce=706) 0.2 mg/dL 0.2-1.0 RBC UA (BEAKER) (test cukk=125) 0 /HPF WBC UA (BEAKER) (test hmfi=979) 64 /HPF BACTERIA (BEAKER) (test cgvt=350) Moderate TRIPLE PHOSPHATE CRYSTALS (BEAKER) (test Few wqws=5044) YEAST (BEAKER) (test svnh=6364) Few SOURCE(BEAKER) (test qlky=2539) Urine, Hannah POCT-GLUCOSE [id number] 13:02:00 Test Item Value Reference Range Comments POC-GLUCOSE METER (BEAKER) 180 mg/dL 70-110 TESTED AT [address] (test dcfr=6289) [facility] [address] POCT-GLUCOSE [id number] 09:36:00 Test Item Value Reference Range Comments POC-GLUCOSE METER (BEAKER) 200 mg/dL 70-110 TESTED AT [address] (test xbta=5777) [facility] [address] PROTHROMBIN [id number] 07:20:00 Test Item Value Reference Range Comments PROTIME (BEAKER) (test dwxv=540) 29.2 seconds 11.7-14.7 INR (BEAKER) (test jfly=472) 2.8 <=5.9 RECOMMENDED COUMADIN/WARFARIN INR THERAPY RANGESSTANDARD DOSE: 2.0 - 3.0 Includes: PROPHYLAXIS forvenous thrombosis, systemic embolization; TREATMENT for venous thrombosis and/or pulmonary embolus.HIGH RISK: Target INR is 2.5-3.5 for patients with mechanical heart valves.While on warfarin.[id number] 07:16:00 Test Item Value Reference Range Comments MAGNESIUM (BEAKER) (test nbjv=514) 1.8 mg/dL 1.6-2.6 BASIC METABOLIC [id number] 07:16:00 Test Item Value Reference Range Comments SODIUM (BEAKER) (test 138 meq/L 136-145 arnf=986) POTASSIUM (BEAKER) (test 4.0 meq/L 3.5-5.1 xtjv=356) CHLORIDE (BEAKER) (test 100 meq/L 98-107 wmxw=454) CO2 (BEAKER) (test 28 meq/L 22-29 jycu=987) BLOOD UREA NITROGEN 46 mg/dL 7-21 (BEAKER) (test qshf=057) CREATININE (BEAKER) (test 1.88 mg/dL 0.57-1.25 jecl=654) GLUCOSE RANDOM (BEAKER) 177 mg/dL 70-105 (test gzqk=692) CALCIUM (BEAKER) (test 9.5 mg/dL 8.4-10.2 zpbk=815) EGFR (BEAKER) (test 35 mL/min/1.73 sq m ESTIMATED GFR IS NOT wmhd=7297) ACCURATE CREATININE CLEARANCE IN PREDICTING GLOMERULAR FILTRATION RATE. ESTIMATED GFR IS NOT APPLICABLE FOR DIALYSIS PATIENTS. CBC W/PLT COUNT & AUTO [id number] 07:07:00 Test Item Value Reference Range Comments WHITE BLOOD CELL COUNT (BEAKER) (test aaye=841) 6.8 K/ L 3.5-10.5 RED BLOOD CELL COUNT (BEAKER) (test meta=342) 3.48 M/ L 4.63-6.08 HEMOGLOBIN (BEAKER) (test jekd=768) 11.1 GM/DL 13.7-17.5 HEMATOCRIT (BEAKER) (test unde=909) 35.0 % 40.1-51.0 MEAN CORPUSCULAR VOLUME (BEAKER) (test ecmo=805) 100.6 fL 79.0-92.2 MEAN CORPUSCULAR HEMOGLOBIN (BEAKER) (test 31.9 pg 25.7-32.2 fxho=686) MEAN CORPUSCULAR HEMOGLOBIN CONC (BEAKER) (test 31.7 GM/DL 32.3-36.5 rqnt=369) RED CELL DISTRIBUTION WIDTH (BEAKER) (test 14.3 % 11.6-14.4 ifki=742) PLATELET COUNT (BEAKER) (test vxsp=217) 205 K/CU MM 150-450 MEAN PLATELET VOLUME (BEAKER) (test tfhn=371) 10.3 fL 9.4-12.4 NUCLEATED RED BLOOD CELLS (BEAKER) (test 0 /100 WBC 0-0 elgc=526) NEUTROPHILS RELATIVE PERCENT (BEAKER) (test 57 % zukh=701) LYMPHOCYTES RELATIVE PERCENT (BEAKER) (test 24 % dlwz=935) MONOCYTES RELATIVE PERCENT (BEAKER) (test 15 % pmig=380) EOSINOPHILS RELATIVE PERCENT (BEAKER) (test 3 % tlkt=294) BASOPHILS RELATIVE PERCENT (BEAKER) (test 1 % gpxn=940) NEUTROPHILS ABSOLUTE COUNT (BEAKER) (test 3.86 K/ L 1.78-5.38 jrtu=494) LYMPHOCYTES ABSOLUTE COUNT (BEAKER) (test 1.61 K/ L 1.32-3.57 uqyz=049) MONOCYTES ABSOLUTE COUNT (BEAKER) (test 1.00 K/ L 0.30-0.82 tptt=264) EOSINOPHILS ABSOLUTE COUNT (BEAKER) (test 0.23 K/ L 0.04-0.54 qgvn=139) BASOPHILS ABSOLUTE COUNT (BEAKER) (test 0.05 K/ L 0.01-0.08 uzwj=206) IMMATURE GRANULOCYTES-RELATIVE PERCENT (BEAKER) 0 % 0-1 (test uhxs=2258) POCT-GLUCOSE [id number] 22:06:00 Test Item Value Reference Range Comments POC-GLUCOSE METER (BEAKER) 222 mg/dL 70-110 TESTED AT [address] (test xrvx=3117) [place] [address] POCT-GLUCOSE [id number] 18:33:00 Test Item Value Reference Range Comments POC-GLUCOSE METER (BEAKER) 227 mg/dL 70-110 TESTED AT [address] (test lvyl=5117) [place] [address] URINALYSIS W/ REFLEX URINE [id number] 14:23:00 Test Item Value Reference Range Comments COLOR (BEAKER) (test pwyh=626) Yellow CLARITY (BEAKER) (test nzdr=408) Cloudy SPECIFIC GRAVITY UA (BEAKER) (test thjy=226) 1.012 1.001-1.035 PH UA (BEAKER) (test qpon=436) 8.5 5.0-8.0 PROTEIN UA (BEAKER) (test jolf=567) 100 mg/dL Negative GLUCOSE UA (BEAKER) (test cgom=908) Negative Negative KETONES UA (BEAKER) (test fmhc=816) Negative Negative BILIRUBIN UA (BEAKER) (test rwad=028) Negative Negative BLOOD UA (BEAKER) (test vfpv=670) Trace Negative NITRITE UA (BEAKER) (test kpph=192) Negative Negative LEUKOCYTE ESTERASE UA (BEAKER) (test tmuu=475) Large Negative UROBILINOGEN UA (BEAKER) (test yutg=856) 0.2 mg/dL 0.2-1.0 RBC UA (BEAKER) (test uxpp=098) 28 /HPF WBC UA (BEAKER) (test zjvd=548) 112 /HPF BACTERIA (BEAKER) (test btdj=588) Many MUCUS (BEAKER) (test lvrq=8936) Few TRIPLE PHOSPHATE CRYSTALS (BEAKER) (test Few epyj=8494) YEAST (BEAKER) (test mtpm=1432) Many SOURCE(BEAKER) (test rcor=4843) POCT-GLUCOSE [id number] 12:34:00 Test Item Value Reference Range Comments POC-GLUCOSE METER (BEAKER) 273 mg/dL 70-110 TESTED AT [address] (test wllg=1676) [place] [address] POCT-GLUCOSE [id number] 09:09:00 Test Item Value Reference Range Comments POC-GLUCOSE METER (BEAKER) 186 mg/dL 70-110 TESTED AT [address] (test ywbp=4401) [place] [address] [id number] 07:43:00 Test Item Value Reference Range Comments MAGNESIUM (BEAKER) (test gmzf=577) 1.6 mg/dL 1.6-2.6 BASIC METABOLIC [id number] 07:43:00 Test Item Value Reference Range Comments SODIUM (BEAKER) (test 138 meq/L 136-145 szfi=181) POTASSIUM (BEAKER) (test 3.7 meq/L 3.5-5.1 fyvm=579) CHLORIDE (BEAKER) (test 98 meq/L 98-107 mdrp=777) CO2 (BEAKER) (test 30 meq/L 22-29 gikw=714) BLOOD UREA NITROGEN 45 mg/dL 7-21 (BEAKER) (test xaxi=757) CREATININE (BEAKER) (test 1.89 mg/dL 0.57-1.25 lssv=419) GLUCOSE RANDOM (BEAKER) 167 mg/dL 70-105 (test hrpe=945) CALCIUM (BEAKER) (test 9.4 mg/dL 8.4-10.2 bpwn=338) EGFR (BEAKER) (test 35 mL/min/1.73 sq m ESTIMATED GFR IS NOT cpty=6077) ACCURATE CREATININE CLEARANCE IN PREDICTING GLOMERULAR FILTRATION RATE. ESTIMATED GFR IS NOT APPLICABLE FOR DIALYSIS PATIENTS. [id number] 07:30:00 Test Item Value Reference Range Comments PARTIAL THROMBOPLASTIN TIME (BEAKER) (test 95.4 seconds 22.5-36.0 blqb=803) While on warfarin.PROTHROMBIN TIME/[id number] 07:28:00 Test Item Value Reference Range Comments PROTIME (BEAKER) (test nmad=739) 25.1 seconds 11.7-14.7 INR (BEAKER) (test fnhn=003) 2.3 <=5.9 RECOMMENDED COUMADIN/WARFARIN INR THERAPY RANGESSTANDARD DOSE: 2.0 - 3.0 Includes: PROPHYLAXIS forvenous thrombosis, systemic embolization; TREATMENT for venous thrombosis and/or pulmonary embolus.HIGH RISK: Target INR is 2.5-3.5 for patients with mechanical heart valves.While on warfarin.[id number] 23:08 :00 Test Item Value Reference Range Comments PARTIAL THROMBOPLASTIN TIME (BEAKER) (test 66.2 seconds 22.5-36.0 ntif=402) POCT-GLUCOSE [id number] 22:14:00 Test Item Value Reference Range Comments POC-GLUCOSE METER (BEAKER) 224 mg/dL 70-110 TESTED AT [address] (test uduv=8060) [place] [id number] 19:24:00 Test Item Value Reference Range Comments PARTIAL THROMBOPLASTIN TIME (BEAKER) (test 121.7 seconds 22.5-36.0 ydyw=062) POCT-GLUCOSE [id number] 17:07:00 Test Item Value Reference Range Comments POC-GLUCOSE METER (BEAKER) 191 mg/dL 70-110 TESTED AT [address] (test qatf=5259) [place] [address] [id number] 12:57:00 Test Item Value Reference Range Comments PARTIAL THROMBOPLASTIN TIME (BEAKER) (test 95.5 seconds 22.5-36.0 kxgb=337) POCT-GLUCOSE [id number] 12:11:00 Test Item Value Reference Range Comments POC-GLUCOSE METER (BEAKER) 217 mg/dL 70-110 TESTED AT [facility] [address] [facility] (test vadl=5237) [facility] [address] POCT-GLUCOSE [id number] 08:51:00 Test Item Value Reference Range Comments POC-GLUCOSE METER (BEAKER) 185 mg/dL 70-110 TESTED AT [place] [id number] (test lthi=2595) [facility] [address] [id number] 05:36:00 Test Item Value Reference Range Comments PARTIAL THROMBOPLASTIN TIME (BEAKER) (test 117.7 seconds 22.5-36.0 ppei=165) While on warfarin.[id number] 05:06:00 Test Item Value Reference Range Comments MAGNESIUM (BEAKER) (test tppx=682) 1.6 mg/dL 1.6-2.6 BASIC METABOLIC [id number] 05:06:00 Test Item Value Reference Range Comments SODIUM (BEAKER) (test 140 meq/L 136-145 qaie=619) POTASSIUM (BEAKER) (test 3.6 meq/L 3.5-5.1 dtfl=661) CHLORIDE (BEAKER) (test 99 meq/L 98-107 dlyp=329) CO2 (BEAKER) (test 30 meq/L 22-29 qmix=674) BLOOD UREA NITROGEN 48 mg/dL 7-21 (BEAKER) (test jgae=433) CREATININE (BEAKER) (test 2.09 mg/dL 0.57-1.25 srbc=231) GLUCOSE RANDOM (BEAKER) 179 mg/dL 70-105 (test cslq=862) CALCIUM (BEAKER) (test 9.5 mg/dL 8.4-10.2 zecw=233) EGFR (BEAKER) (test 31 mL/min/1.73 sq m ESTIMATED GFR IS NOT cfog=1777) ACCURATE CREATININE CLEARANCE IN PREDICTING GLOMERULAR FILTRATION RATE. ESTIMATED GFR IS NOT APPLICABLE FOR DIALYSIS PATIENTS. PROTHROMBIN TIME/[id number] 05:01:00 Test Item Value Reference Range Comments PROTIME (BEAKER) (test ubfc=415) 21.5 seconds 11.7-14.7 INR (BEAKER) (test xhge=114) 1.8 <=5.9 RECOMMENDED COUMADIN/WARFARIN INR THERAPY RANGESSTANDARD DOSE: 2.0 - 3.0 Includes: PROPHYLAXIS forvenous thrombosis, systemic embolization; TREATMENT for venous thrombosis and/or pulmonary embolus.HIGH RISK: Target INR is 2.5-3.5 for patients with mechanical heart valves.While on warfarin.POCT-GLUCOSE [id number] 21:46:00 Test Item Value Reference Range Comments POC-GLUCOSE METER (BEAKER) 200 mg/dL 70-110 TESTED AT [address] (test yrww=2518) [place] [address] POCT-GLUCOSE [id number] 17:51:00 Test Item Value Reference Range Comments POC-GLUCOSE METER (BEAKER) 224 mg/dL 70-110 TESTED AT [address] (test ispd=7737) [place] [address] [id number] 13:34:00 Test Item Value Reference Range Comments PARTIAL THROMBOPLASTIN TIME (BEAKER) (test 85.8 seconds 22.5-36.0 ipaz=844) POCT-GLUCOSE [id number] 13:26:00 Test Item Value Reference Range Comments POC-GLUCOSE METER (BEAKER) 208 mg/dL 70-110 TESTED AT [address] (test yfxl=4373) [place] [address] POCT-GLUCOSE [id number] 09:09:00 Test Item Value Reference Range Comments POC-GLUCOSE METER (BEAKER) 203 mg/dL 70-110 TESTED AT [address] (test pxpk=0639) [place] [address] BASIC METABOLIC [id number] 07:09:00 Test Item Value Reference Range Comments SODIUM (BEAKER) (test 139 meq/L 136-145 awrw=027) POTASSIUM (BEAKER) (test 3.6 meq/L 3.5-5.1 xwai=509) CHLORIDE (BEAKER) (test 97 meq/L 98-107 dcfz=893) CO2 (BEAKER) (test 30 meq/L 22-29 mpwa=806) BLOOD UREA NITROGEN 56 mg/dL 7-21 (BEAKER) (test yznb=540) CREATININE (BEAKER) (test 2.30 mg/dL 0.57-1.25 gxgz=863) GLUCOSE RANDOM (BEAKER) 227 mg/dL 70-105 (test njwn=188) CALCIUM (BEAKER) (test 9.3 mg/dL 8.4-10.2 xpvg=797) EGFR (BEAKER) (test 28 mL/min/1.73 sq m ESTIMATED GFR IS NOT qvmq=3147) ACCURATE CREATININE CLEARANCE IN PREDICTING GLOMERULAR FILTRATION RATE. ESTIMATED GFR IS NOT APPLICABLE FOR DIALYSIS PATIENTS. [id number] 07:08:00 Test Item Value Reference Range Comments MAGNESIUM (BEAKER) (test vuvx=580) 1.6 mg/dL 1.6-2.6 [id number] 06:31:00 Test Item Value Reference Range Comments PARTIAL THROMBOPLASTIN TIME (BEAKER) (test 89.3 seconds 22.5-36.0 ilud=402) While on warfarin.PROTHROMBIN TIME/[id number] 06:29:00 Test Item Value Reference Range Comments PROTIME (BEAKER) (test grez=525) 19.8 seconds 11.7-14.7 INR (BEAKER) (test scfe=569) 1.7 <=5.9 RECOMMENDED COUMADIN/WARFARIN INR THERAPY RANGESSTANDARD DOSE: 2.0 - 3.0 Includes: PROPHYLAXIS forvenous thrombosis, systemic embolization; TREATMENT for venous thrombosis and/or pulmonary embolus.HIGH RISK: Target INR is 2.5-3.5 for patients with mechanical heart valves.While on warfarin.[id number] 22:50 :00 Test Item Value Reference Range Comments PARTIAL THROMBOPLASTIN TIME (BEAKER) (test 110.0 seconds 22.5-36.0 rqfy=514) POCT-GLUCOSE [id number] 22:48:00 Test Item Value Reference Range Comments POC-GLUCOSE METER (BEAKER) 188 mg/dL 70-110 TESTED AT [facility] [address] [facility] (test bnin=0302) [facility] [address] POCT-GLUCOSE [id number] 17:03:00 Test Item Value Reference Range Comments POC-GLUCOSE METER (BEAKER) 185 mg/dL 70-110 TESTED AT [facility] [address] [facility] (test wejb=4779) [facility] [address] [id number] 15:20:00 Test Item Value Reference Range Comments PARTIAL THROMBOPLASTIN TIME (BEAKER) (test 64.0 seconds 22.5-36.0 nswi=325) POCT-GLUCOSE [id number] 12:48:00 Test Item Value Reference Range Comments POC-GLUCOSE METER (BEAKER) 269 mg/dL 70-110 TESTED AT [facility] [address] [facility] (test xkgx=1053) [facility] [address] POCT-GLUCOSE [id number] 09:25:00 Test Item Value Reference Range Comments POC-GLUCOSE METER (BEAKER) 209 mg/dL 70-110 TESTED AT [place] [id number] [facility] (test agrk=3595) [facility] [address] [id number] 06:39:00 Test Item Value Reference Range Comments PARTIAL THROMBOPLASTIN TIME (BEAKER) (test 102.4 seconds 22.5-36.0 sujm=013) While on warfarin.VITAMIN D, 46-[id number] 05:39:00 Test Item Value Reference Range Comments VITAMIN D 25-OH (BEAKER) (test qrze=5396) 37.0 ng/mL 6.6-49.9 Effective 09/01/2017: Reference Range ChangeNew: 6.6-49.9 ng/mL Previous: 13.0 -47.8 ng/mLRecommended Vitamin D Target Range: 30.0-40.0 [facility] [id number] 05:16:00 Test Item Value Reference Range Comments SODIUM (BEAKER) (test 138 meq/L 136-145 fxxa=300) POTASSIUM (BEAKER) (test 3.8 meq/L 3.5-5.1 yvjm=024) CHLORIDE (BEAKER) (test 97 meq/L 98-107 ldao=141) CO2 (BEAKER) (test 31 meq/L 22-29 fjzm=987) BLOOD UREA NITROGEN 62 mg/dL 7-21 (BEAKER) (test anjn=640) CREATININE (BEAKER) (test 2.20 mg/dL 0.57-1.25 qhbh=886) GLUCOSE RANDOM (BEAKER) 162 mg/dL 70-105 (test awua=941) CALCIUM (BEAKER) (test 9.2 mg/dL 8.4-10.2 amew=513) EGFR (BEAKER) (test 29 mL/min/1.73 sq m ESTIMATED GFR IS NOT vlpx=0101) ACCURATE CREATININE CLEARANCE IN PREDICTING GLOMERULAR FILTRATION RATE. ESTIMATED GFR IS NOT APPLICABLE FOR DIALYSIS PATIENTS. [id number] 05:11:00 Test Item Value Reference Range Comments PHOSPHORUS (BEAKER) (test ouij=426) 4.4 mg/dL 2.3-4.7 [id number] 05:11:00 Test Item Value Reference Range Comments MAGNESIUM (BEAKER) (test iwsp=970) 1.5 mg/dL 1.6-2.6 PROTHROMBIN [id number] 05:05:00 Test Item Value Reference Range Comments PROTIME (BEAKER) (test izmz=662) 18.6 seconds 11.7-14.7 INR (BEAKER) (test yciu=470) 1.6 <=5.9 RECOMMENDED COUMADIN/WARFARIN INR THERAPY RANGESSTANDARD DOSE: 2.0 - 3.0 Includes: PROPHYLAXIS forvenous thrombosis, systemic embolization; TREATMENT for venous thrombosis and/or pulmonary embolus.HIGH RISK: Target INR is 2.5-3.5 for patients with mechanical heart valves.While on warfarin.POCT-GLUCOSE [id number] 22:28:00 Test Item Value Reference Range Comments POC-GLUCOSE METER (BEAKER) 196 mg/dL 70-110 TESTED AT [facility] [address] [facility] (test jvwo=0250) [place] [id number] POCT-GLUCOSE [id number] 16:37:00 Test Item Value Reference Range Comments POC-GLUCOSE METER (BEAKER) 211 mg/dL 70-110 TESTED AT [facility] [address] [facility] (test wjxu=2615) [place] [address] RAD, FOOT, 2 VIEWS, [id number] 13:10:00Reason for exam:->painFINAL REPORT TECHNIQUE: Frontal, lateral, [...] MDReport Verified Date/Time: 01/24/2019 13:10:38 Reading Location: [facility] Radiology Reading Room POCT-GLUCOSE [id number] 12:43:00 Test Item Value Reference Range Comments POC-GLUCOSE METER (BEAKER) 217 mg/dL 70-110 TESTED AT [address] (test sfpo=1417) [facility] [id number] POCT-GLUCOSE [id number] 08:21:00 Test Item Value Reference Range Comments POC-GLUCOSE METER (BEAKER) 186 mg/dL 70-110 TESTED AT [address] (test tivb=1468) [place] [address] [id number] 05:21:00 Test Item Value Reference Range Comments PHOSPHORUS (BEAKER) (test mmzg=521) 4.5 mg/dL 2.3-4.7 [id number] 05:21:00 Test Item Value Reference Range Comments MAGNESIUM (BEAKER) (test vrpa=400) 1.7 mg/dL 1.6-2.6 BASIC METABOLIC [id number] 05:21:00 Test Item Value Reference Range Comments SODIUM (BEAKER) (test 136 meq/L 136-145 nrtc=251) POTASSIUM (BEAKER) (test 3.9 meq/L 3.5-5.1 rxlt=039) CHLORIDE (BEAKER) (test 95 meq/L 98-107 cumn=453) CO2 (BEAKER) (test 30 meq/L 22-29 wyqy=952) BLOOD UREA NITROGEN 68 mg/dL 7-21 (BEAKER) (test jykk=973) CREATININE (BEAKER) (test 2.15 mg/dL 0.57-1.25 wkzj=170) GLUCOSE RANDOM (BEAKER) 170 mg/dL 70-105 (test sizg=660) CALCIUM (BEAKER) (test 8.8 mg/dL 8.4-10.2 vrfy=978) EGFR (BEAKER) (test 30 mL/min/1.73 sq m ESTIMATED GFR IS NOT yexp=1821) ACCURATE CREATININE CLEARANCE IN PREDICTING GLOMERULAR FILTRATION RATE. ESTIMATED GFR IS NOT APPLICABLE FOR DIALYSIS PATIENTS. [id number] 05:16:00 Test Item Value Reference Range Comments PARTIAL THROMBOPLASTIN TIME (BEAKER) (test 84.7 seconds 22.5-36.0 rvjb=293) While on warfarin.PROTHROMBIN [id number] 05:14:00 Test Item Value Reference Range Comments PROTIME (BEAKER) (test prqw=257) 15.7 seconds 11.7-14.7 INR (BEAKER) (test opjh=772) 1.2 <=5.9 RECOMMENDED COUMADIN/WARFARIN INR THERAPY RANGESSTANDARD DOSE: 2.0 - 3.0 Includes: PROPHYLAXIS forvenous thrombosis, systemic embolization; TREATMENT for venous thrombosis and/or pulmonary embolus.HIGH RISK: Target INR is 2.5-3.5 for patients with mechanical heart valves.While on warfarin.POCT-GLUCOSE [id number] 21:30:00 Test Item Value Reference Range Comments POC-GLUCOSE METER (BEAKER) 267 mg/dL 70-110 TESTED AT [address] (test uacu=2037) [place] [address] POCT-GLUCOSE [id number] 16:28:00 Test Item Value Reference Range Comments POC-GLUCOSE METER (BEAKER) 184 mg/dL 70-110 TESTED AT [address] (test lpps=4671) [place] [address] POCT-GLUCOSE [id number] 12:04:00 Test Item Value Reference Range Comments POC-GLUCOSE METER (BEAKER) 213 mg/dL 70-110 TESTED AT [address] (test vsux=2588) [place] [address] POCT-GLUCOSE [id number] 08:05:00 Test Item Value Reference Range Comments POC-GLUCOSE METER (BEAKER) 175 mg/dL 70-110 TESTED AT [address] (test tjvb=6122) [place] [address] BLOOD [id number] 07:01:00 Test Item Value Reference Range Comments CULTURE (BEAKER) (test ugla=1469) No growth in 5 days BLOOD [id number] 07:01:00 Test Item Value Reference Range Comments CULTURE (BEAKER) (test ullt=6109) No growth in 5 days [id number] 05:40:00 Test Item Value Reference Range Comments FERRITIN (BEAKER) (test ejij=541) 508 ng/mL 5-275 Next blood drawCBC W/PLT COUNT & AUTO [id number] 05:25:00 Test Item Value Reference Range Comments WHITE BLOOD CELL COUNT (BEAKER) (test saba=538) 9.0 K/ L 3.5-10.5 RED BLOOD CELL COUNT (BEAKER) (test bskp=158) 3.36 M/ L 4.63-6.08 HEMOGLOBIN (BEAKER) (test ovcn=379) 10.7 GM/DL 13.7-17.5 HEMATOCRIT (BEAKER) (test yvvz=971) 33.0 % 40.1-51.0 MEAN CORPUSCULAR VOLUME (BEAKER) (test rjpq=465) 98.2 fL 79.0-92.2 MEAN CORPUSCULAR HEMOGLOBIN (BEAKER) (test 31.8 pg 25.7-32.2 ubyy=341) MEAN CORPUSCULAR HEMOGLOBIN CONC (BEAKER) (test 32.4 GM/DL 32.3-36.5 cvni=406) RED CELL DISTRIBUTION WIDTH (BEAKER) (test 14.1 % 11.6-14.4 aqvu=415) PLATELET COUNT (BEAKER) (test fcga=839) 241 K/CU MM 150-450 MEAN PLATELET VOLUME (BEAKER) (test tium=608) 10.1 fL 9.4-12.4 NUCLEATED RED BLOOD CELLS (BEAKER) (test 0 /100 WBC 0-0 sybm=286) NEUTROPHILS RELATIVE PERCENT (BEAKER) (test 63 % msql=818) LYMPHOCYTES RELATIVE PERCENT (BEAKER) (test 21 % mqgt=849) MONOCYTES RELATIVE PERCENT (BEAKER) (test 11 % rfaj=881) EOSINOPHILS RELATIVE PERCENT (BEAKER) (test 3 % gytn=718) BASOPHILS RELATIVE PERCENT (BEAKER) (test 1 % phfr=270) NEUTROPHILS ABSOLUTE COUNT (BEAKER) (test 5.71 K/ L 1.78-5.38 dskw=665) LYMPHOCYTES ABSOLUTE COUNT (BEAKER) (test 1.91 K/ L 1.32-3.57 pqfy=335) MONOCYTES ABSOLUTE COUNT (BEAKER) (test 0.96 K/ L 0.30-0.82 vuol=385) EOSINOPHILS ABSOLUTE COUNT (BEAKER) (test 0.29 K/ L 0.04-0.54 imrf=717) BASOPHILS ABSOLUTE COUNT (BEAKER) (test 0.05 K/ L 0.01-0.08 irmt=185) IMMATURE GRANULOCYTES-RELATIVE PERCENT (BEAKER) 1 % 0-1 (test csxz=5226) PROTHROMBIN [id number] 04:51:00 Test Item Value Reference Range Comments PROTIME (BEAKER) (test gmnn=323) 14.8 seconds 11.7-14.7 INR (BEAKER) (test sauk=866) 1.2 <=5.9 RECOMMENDED COUMADIN/WARFARIN INR THERAPY RANGESSTANDARD DOSE: 2.0 - 3.0 Includes: PROPHYLAXIS forvenous thrombosis, systemic embolization; TREATMENT for venous thrombosis and/or pulmonary embolus.HIGH RISK: Target INR is 2.5-3.5 for patients with mechanical heart valves.While on warfarin.BASIC METABOLIC [id number] 04:49:00 Test Item Value Reference Range Comments SODIUM (BEAKER) (test 138 meq/L 136-145 nhhl=288) POTASSIUM (BEAKER) (test 4.2 meq/L 3.5-5.1 knoj=791) CHLORIDE (BEAKER) (test 97 meq/L 98-107 zjcs=627) CO2 (BEAKER) (test 30 meq/L 22-29 dgrf=087) BLOOD UREA NITROGEN 73 mg/dL 7-21 (BEAKER) (test almc=702) CREATININE (BEAKER) (test 2.32 mg/dL 0.57-1.25 wjns=890) GLUCOSE RANDOM (BEAKER) 149 mg/dL 70-105 (test sfnd=372) CALCIUM (BEAKER) (test 8.5 mg/dL 8.4-10.2 vdhv=096) EGFR (BEAKER) (test 28 mL/min/1.73 sq m ESTIMATED GFR IS NOT rsfk=2849) ACCURATE CREATININE CLEARANCE IN PREDICTING GLOMERULAR FILTRATION RATE. ESTIMATED GFR IS NOT APPLICABLE FOR DIALYSIS PATIENTS. [id number] 04:48:00 Test Item Value Reference Range Comments PHOSPHORUS (BEAKER) (test lwgh=131) 5.7 mg/dL 2.3-4.7 [id number] 04:48:00 Test Item Value Reference Range Comments MAGNESIUM (BEAKER) (test xrdg=013) 1.3 mg/dL 1.6-2.6 [id number] 02:38:00 Test Item Value Reference Range Comments PARTIAL THROMBOPLASTIN TIME (BEAKER) (test 72.2 seconds 22.5-36.0 ahdz=059) POCT-GLUCOSE [id number] 23:00:00 Test Item Value Reference Range Comments POC-GLUCOSE METER (BEAKER) 227 mg/dL 70-110 TESTED AT [address] (test wade=8135) [place] [address] [id number] 21:03:00 Test Item Value Reference Range Comments PARTIAL THROMBOPLASTIN TIME (BEAKER) (test 88.9 seconds 22.5-36.0 imnq=266) POCT-GLUCOSE [id number] 19:37:00 Test Item Value Reference Range Comments POC-GLUCOSE METER (BEAKER) 187 mg/dL 70-110 TESTED AT [address] (test wbox=8546) [place] [address] [id number] 16:35:00 Test Item Value Reference Range Comments FERRITIN (BEAKER) (test dgbf=484) 404 ng/mL 22-322 Next blood drawPOCT-GLUCOSE [id number] 11:54:00 Test Item Value Reference Range Comments POC-GLUCOSE METER (BEAKER) 217 mg/dL 70-110 TESTED AT [address] (test ddyh=3962) [place] [address] [id number] 11:49:00 Test Item Value Reference Range Comments PARTIAL THROMBOPLASTIN TIME (BEAKER) (test 65.5 seconds 22.5-36.0 jass=863) POCT-GLUCOSE [id number] 08:15:00 Test Item Value Reference Range Comments POC-GLUCOSE METER (BEAKER) 183 mg/dL 70-110 TESTED AT [address] (test clsg=7540) [place] [address] VITAMIN [id number] 05:29:00 Test Item Value Reference Range Comments VITAMIN B12 (BEAKER) (test xhou=495) 1426 pg/mL 213-816 Next blood drawNext blood drawBASIC METABOLIC [id number] 04:55:00 Test Item Value Reference Range Comments SODIUM (BEAKER) (test 139 meq/L 136-145 eqha=506) POTASSIUM (BEAKER) (test 3.8 meq/L 3.5-5.1 rjzb=326) CHLORIDE (BEAKER) (test 99 meq/L 98-107 yaic=170) CO2 (BEAKER) (test 29 meq/L 22-29 rnun=781) BLOOD UREA NITROGEN 71 mg/dL 7-21 (BEAKER) (test tffm=554) CREATININE (BEAKER) (test 2.35 mg/dL 0.57-1.25 kdgq=519) GLUCOSE RANDOM (BEAKER) 152 mg/dL 70-105 (test bxha=471) CALCIUM (BEAKER) (test 8.2 mg/dL 8.4-10.2 iues=081) EGFR (BEAKER) (test 27 mL/min/1.73 sq m ESTIMATED GFR IS NOT fqge=6749) ACCURATE CREATININE CLEARANCE IN PREDICTING GLOMERULAR FILTRATION RATE. ESTIMATED GFR IS NOT APPLICABLE FOR DIALYSIS PATIENTS. [id number] 04:48:00 Test Item Value Reference Range Comments PHOSPHORUS (BEAKER) (test ogff=873) 4.9 mg/dL 2.3-4.7 [id number] 04:48:00 Test Item Value Reference Range Comments MAGNESIUM (BEAKER) (test nezg=854) 1.4 mg/dL 1.6-2.6 [id number] 04:42:00 Test Item Value Reference Range Comments PARTIAL THROMBOPLASTIN TIME (BEAKER) (test 46.5 seconds 22.5-36.0 iyrg=135) While on warfarin.PROTHROMBIN TIME/[id number] 04:41:00 Test Item Value Reference Range Comments PROTIME (BEAKER) (test wznz=363) 14.9 seconds 11.7-14.7 INR (BEAKER) (test vjjl=596) 1.2 <=5.9 RECOMMENDED COUMADIN/WARFARIN INR THERAPY RANGESSTANDARD DOSE: 2.0 - 3.0 Includes: PROPHYLAXIS forvenous thrombosis, systemic embolization; TREATMENT for venous thrombosis and/or pulmonary embolus.HIGH RISK: Target INR is 2.5-3.5 for patients with mechanical heart valves.While on warfarin.POCT-GLUCOSE [id number] 21:36:00 Test Item Value Reference Range Comments POC-GLUCOSE METER (BEAKER) 209 mg/dL 70-110 TESTED AT [address] (test tkyc=5031) [place] [address] POCT-GLUCOSE [id number] 18:55:00 Test Item Value Reference Range Comments POC-GLUCOSE METER (BEAKER) 177 mg/dL 70-110 TESTED AT [address] (test hrqw=5981) [place] [address] PROTHROMBIN TIME/[id number] 15:00:00 Test Item Value Reference Range Comments PROTIME (BEAKER) (test waim=360) 15.7 seconds 11.7-14.7 INR (BEAKER) (test bsmb=377) 1.2 <=5.9 RECOMMENDED COUMADIN/WARFARIN INR THERAPY RANGESSTANDARD DOSE: 2.0 - 3.0 Includes: PROPHYLAXIS forvenous thrombosis, systemic embolization; TREATMENT for venous thrombosis and/or pulmonary embolus.HIGH RISK: Target INR is 2.5-3.5 for patients with mechanical heart valves.[id number] 13:32:00 Test Item Value Reference Range Comments PARTIAL THROMBOPLASTIN TIME (BEAKER) (test 76.3 seconds 22.5-36.0 ozfc=020) POCT-GLUCOSE [id number] 12:15:00 Test Item Value Reference Range Comments POC-GLUCOSE METER (BEAKER) 273 mg/dL 70-110 TESTED AT [address] (test koqs=6222) [place] [address] [id number] 11:33:00 Test Item Value Reference Range Comments PARTIAL THROMBOPLASTIN TIME (BEAKER) (test > seconds 22.5-36.0 qrco=413) POCT-GLUCOSE [id number] 07:00:00 Test Item Value Reference Range Comments POC-GLUCOSE METER (BEAKER) 190 mg/dL 70-110 TESTED AT [address] (test tsim=5797) [place] [address] VITAMIN [id number] 04:08:00 Test Item Value Reference Range Comments VITAMIN B12 (BEAKER) (test wqxc=642) 1616 pg/mL 213-816 Next blood drawNext blood [id number] 04:08:00 Test Item Value Reference Range Comments FERRITIN (BEAKER) (test xscw=047) 404 ng/mL 5-275 Next blood drawNext blood drawBASIC METABOLIC [id number] 03:33:00 Test Item Value Reference Range Comments SODIUM (BEAKER) (test 143 meq/L 136-145 gwyn=607) POTASSIUM (BEAKER) (test 4.0 meq/L 3.5-5.1 fbwa=124) CHLORIDE (BEAKER) (test 104 meq/L 98-107 fwdo=377) CO2 (BEAKER) (test 29 meq/L 22-29 iocu=907) BLOOD UREA NITROGEN 81 mg/dL 7-21 (BEAKER) (test pwjr=053) CREATININE (BEAKER) (test 2.62 mg/dL 0.57-1.25 ihog=550) GLUCOSE RANDOM (BEAKER) 163 mg/dL 70-105 (test qwxy=338) CALCIUM (BEAKER) (test 8.9 mg/dL 8.4-10.2 qoti=845) EGFR (BEAKER) (test 24 mL/min/1.73 sq m ESTIMATED GFR IS NOT bvlu=1387) ACCURATE CREATININE CLEARANCE IN PREDICTING GLOMERULAR FILTRATION RATE. ESTIMATED GFR IS NOT APPLICABLE FOR DIALYSIS PATIENTS. [id number] 03:30:00 Test Item Value Reference Range Comments PHOSPHORUS (BEAKER) (test vjyr=020) 5.2 mg/dL 2.3-4.7 [id number] 03:30:00 Test Item Value Reference Range Comments MAGNESIUM (BEAKER) (test skcy=176) 1.6 mg/dL 1.6-2.6 [id number] 03:28:00 Test Item Value Reference Range Comments PARTIAL THROMBOPLASTIN TIME (BEAKER) (test 72.8 seconds 22.5-36.0 vrqs=614) CBC W/PLT COUNT & AUTO [id number] 03:17:00 Test Item Value Reference Range Comments WHITE BLOOD CELL COUNT (BEAKER) (test awqf=992) 10.4 K/ L 3.5-10.5 RED BLOOD CELL COUNT (BEAKER) (test mymi=193) 3.48 M/ L 4.63-6.08 HEMOGLOBIN (BEAKER) (test xfwk=606) 11.2 GM/DL 13.7-17.5 HEMATOCRIT (BEAKER) (test tcya=349) 34.2 % 40.1-51.0 MEAN CORPUSCULAR VOLUME (BEAKER) (test sgfd=377) 98.3 fL 79.0-92.2 MEAN CORPUSCULAR HEMOGLOBIN (BEAKER) (test 32.2 pg 25.7-32.2 buld=589) MEAN CORPUSCULAR HEMOGLOBIN CONC (BEAKER) (test 32.7 GM/DL 32.3-36.5 vzoa=360) RED CELL DISTRIBUTION WIDTH (BEAKER) (test 14.4 % 11.6-14.4 xfps=461) PLATELET COUNT (BEAKER) (test ezah=093) 242 K/CU MM 150-450 MEAN PLATELET VOLUME (BEAKER) (test ihbe=139) 9.9 fL 9.4-12.4 NUCLEATED RED BLOOD CELLS (BEAKER) (test 0 /100 WBC 0-0 zaat=530) NEUTROPHILS RELATIVE PERCENT (BEAKER) (test 74 % pcbt=051) LYMPHOCYTES RELATIVE PERCENT (BEAKER) (test 12 % kcdx=510) MONOCYTES RELATIVE PERCENT (BEAKER) (test 9 % ivoy=731) EOSINOPHILS RELATIVE PERCENT (BEAKER) (test 3 % corr=907) BASOPHILS RELATIVE PERCENT (BEAKER) (test 1 % ofap=265) NEUTROPHILS ABSOLUTE COUNT (BEAKER) (test 7.73 K/ L 1.78-5.38 tndj=998) LYMPHOCYTES ABSOLUTE COUNT (BEAKER) (test 1.27 K/ L 1.32-3.57 qmry=361) MONOCYTES ABSOLUTE COUNT (BEAKER) (test 0.93 K/ L 0.30-0.82 uizd=527) EOSINOPHILS ABSOLUTE COUNT (BEAKER) (test 0.30 K/ L 0.04-0.54 tnks=097) BASOPHILS ABSOLUTE COUNT (BEAKER) (test 0.05 K/ L 0.01-0.08 kmho=214) IMMATURE GRANULOCYTES-RELATIVE PERCENT (BEAKER) 1 % 0-1 (test ybvy=2960) POCT-GLUCOSE [id number] 00:35:00 Test Item Value Reference Range Comments POC-GLUCOSE METER (BEAKER) 195 mg/dL 70-110 TESTED AT [facility] [address] [facility] (test dptd=8415) [facility] [address] [id number] 20:37:00 Test Item Value Reference Range Comments PARTIAL THROMBOPLASTIN TIME (BEAKER) (test 50.2 seconds 22.5-36.0 mxwq=252) POCT-GLUCOSE [id number] 18:35:00 Test Item Value Reference Range Comments POC-GLUCOSE METER (BEAKER) 173 mg/dL 70-110 TESTED AT [facility] [address] (test wnzy=9932) [place] [address] BRONCHIAL CULTURE + GRAM [id number] 15:38:00 Test Item Value Reference Range Comments CULTURE (BEAKER) (test <1+ Normal respiratory jeana hhdw=2637) present GRAM STAIN RESULT (BEAKER) No White blood cells seen (test bkvz=2610) GRAM STAIN RESULT (BEAKER) No organisms seen (test vrhe=48902) SPUTUM CULTURE + GRAM [id number] 14:47:00 Test Item Value Reference Range Comments CULTURE (BEAKER) (test bior=5870) See comment GRAM STAIN RESULT (BEAKER) (test <1+ WBCs smvr=6383) GRAM STAIN RESULT (BEAKER) (test 0-5 epithelial cells vqiu=122137) GRAM STAIN RESULT (BEAKER) (test No organisms seen wadx=024038) <1+ yeast1+ Normal respiratory jeana presentMRSA [id number] 14:46:00 Test Item Value Reference Range Comments CULTURE (BEAKER) (test xmnu=0873) No MRSA isolated SPUTUM CULTURE + GRAM [id number] 14:45:00 Test Item Value Reference Range Comments CULTURE (BEAKER) (test See comment ysaf=6865) GRAM STAIN RESULT (BEAKER) 2+ White blood cells seen (test lvus=7862) GRAM STAIN RESULT (BEAKER) 0-5 epithelial cells (test xtjj=482448) GRAM STAIN RESULT (BEAKER) 1+ gram positive cocci in pairs (test ytba=735195) 1+ yeast1+ Normal respiratory jeana [id number] 14:20:00 Test Item Value Reference Range Comments PARTIAL THROMBOPLASTIN TIME (BEAKER) (test 57.9 seconds 22.5-36.0 ifdj=996) [id number] 12:47:00 Test Item Value Reference Range Comments PARTIAL THROMBOPLASTIN TIME (BEAKER) (test > seconds 22.5-36.0 niml=573) POCT-GLUCOSE [id number] 12:39:00 Test Item Value Reference Range Comments POC-GLUCOSE METER (BEAKER) 194 mg/dL 70-110 TESTED AT [place] [id number] [facility] (test yjrn=6665) [place] [id number] VITAMIN [id number] 08:56:00 Test Item Value Reference Range Comments VITAMIN B12 (BEAKER) (test sqcd=616) 1677 pg/mL 213-816 Next blood drawNext blood [id number] 08:56:00 Test Item Value Reference Range Comments FERRITIN (BEAKER) (test incg=921) 320 ng/mL 5-275 Next blood drawNext blood drawPOCT-GLUCOSE [id number] 07:15:00 Test Item Value Reference Range Comments POC-GLUCOSE METER (BEAKER) 195 mg/dL 70-110 TESTED AT [address] (test gtfv=4323) [place] [address] [id number] 05:51:00 Test Item Value Reference Range Comments PARTIAL THROMBOPLASTIN TIME (BEAKER) (test 47.1 seconds 22.5-36.0 cgoq=943) BASIC METABOLIC [id number] 05:40:00 Test Item Value Reference Range Comments SODIUM (BEAKER) (test 142 meq/L 136-145 jntb=811) POTASSIUM (BEAKER) (test 4.6 meq/L 3.5-5.1 zqgv=393) CHLORIDE (BEAKER) (test 107 meq/L 98-107 qspi=290) CO2 (BEAKER) (test 23 meq/L 22-29 ybrl=123) BLOOD UREA NITROGEN 83 mg/dL 7-21 (BEAKER) (test ofpi=294) CREATININE (BEAKER) (test 3.16 mg/dL 0.57-1.25 pxyn=809) GLUCOSE RANDOM (BEAKER) 224 mg/dL 70-105 (test xepb=085) CALCIUM (BEAKER) (test 9.0 mg/dL 8.4-10.2 hxmq=273) EGFR (BEAKER) (test 19 mL/min/1.73 sq m ESTIMATED GFR IS NOT gkmt=5287) ACCURATE CREATININE CLEARANCE IN PREDICTING GLOMERULAR FILTRATION RATE. ESTIMATED GFR IS NOT APPLICABLE FOR DIALYSIS PATIENTS. [id number] 05:33:00 Test Item Value Reference Range Comments MAGNESIUM (BEAKER) (test zzas=518) 1.9 mg/dL 1.6-2.6 [id number] 05:16:00 Test Item Value Reference Range Comments PROCALCITONIN (BEAKER) (test oydp=5590) 0.89 ng/mL <0.05 SEPSIS RISK (ng/mL)Low: 0.05-0.50Intermediate: 0.51-2.00High: & gt;=[id number] 05:10:00 Test Item Value Reference Range Comments PARTIAL THROMBOPLASTIN TIME (BEAKER) (test > seconds 22.5-36.0 upqz=786) [id number] 04:43:00 Test Item Value Reference Range Comments PHOSPHORUS (BEAKER) (test rvhp=063) 6.3 mg/dL 2.3-4.7 POCT-GLUCOSE [id number] 00:30:00 Test Item Value Reference Range Comments POC-GLUCOSE METER (BEAKER) 190 mg/dL 70-110 TESTED AT [address] (test xctr=7948) [facility] [address] [id number] 22:42:00 Test Item Value Reference Range Comments PARTIAL THROMBOPLASTIN TIME (BEAKER) (test 30.8 seconds 22.5-36.0 oyrm=043) [id number] 21:48:00 Test Item Value Reference Range Comments PARTIAL THROMBOPLASTIN TIME (BEAKER) (test 32.1 seconds 22.5-36.0 tkny=301) [id number] 20:02:00 Test Item Value Reference Range Comments PARTIAL THROMBOPLASTIN TIME (BEAKER) (test 154.5 seconds 22.5-36.0 vfmf=085) U/S, RENAL, [id number] 17:24:00Reason for exam:->AKIFINAL REPORT Ultrasound of the [...] Verified Date/Time: 01/19/2019 17:24: 49 Reading Location: [address] Ultrasound Reading Room POCT-GLUCOSE [id number] 16 :20:00 Test Item Value Reference Range Comments POC-GLUCOSE METER (BEAKER) 217 mg/dL 70-110 TESTED AT [address] (test bpfs=4713) [facility] [address] BLOOD GAS, [id number] 13:45:00 Test Item Value Reference Range Comments PH ARTERIAL (BEAKER) (test gxfv=062) 7.42 7.35-7.45 PCO2 ARTERIAL (BEAKER) (test qeis=585) 37 mmHg 35-45 PO2 ARTERIAL (BEAKER) (test rwyq=043) 155 mmHg 80-90 O2 SATURATION ARTERIAL (BEAKER) (test axcv=772) 99.0 % 96.0-97.0 HCO3 ARTERIAL (BEAKER) (test lcaf=141) 23 mmol/L 21-29 BASE EXCESS ARTERIAL (BEAKER) (test bzrj=228) -0.8 mmol/L -2.0-3.0 PATIENT TEMPERATURE (BEAKER) (test tjne=1097) 37.5 C FIO2 (BEAKER) (test ppvr=3464) 40.0 % For 30 minutes AFTER [id number] 12:36:00 Test Item Value Reference Range Comments PARTIAL THROMBOPLASTIN TIME 102.5 seconds 22.5-36.0 Specimen not clotted (BEAKER) (test wstl=320) RAD, CHEST, 1 VIEW, NON [id number] 11:12:00Reason for exam:->pnaShould this be performed at [...] MDReport Verified Date/Time: 01/19/2019 11:12:39 Reading Location: [facility] Radiology Reading Room POCT-GLUCOSE [id number] 06:18:00 Test Item Value Reference Range Comments POC-GLUCOSE METER (BEAKER) 224 mg/dL 70-110 TESTED AT [facility] [address] [facility] (test ppba=1752) [facility] [address] [id number] 05:20:00 Test Item Value Reference Range Comments PARTIAL THROMBOPLASTIN TIME (BEAKER) (test 28.9 seconds 22.5-36.0 twzk=682) VITAMIN [id number] 04:57:00 Test Item Value Reference Range Comments VITAMIN B12 (BEAKER) (test nvfz=304) 1685 pg/mL 213-816 Next blood drawNext blood [id number] 04:57:00 Test Item Value Reference Range Comments FERRITIN (BEAKER) (test wihn=834) 320 ng/mL 5-275 Next blood drawNext blood drawBASIC METABOLIC [id number] 04:35:00 Test Item Value Reference Range Comments SODIUM (BEAKER) (test 138 meq/L 136-145 ctmq=099) POTASSIUM (BEAKER) (test 4.7 meq/L 3.5-5.1 ovjk=918) CHLORIDE (BEAKER) (test 105 meq/L 98-107 nnbp=755) CO2 (BEAKER) (test 21 meq/L 22-29 sqah=079) BLOOD UREA NITROGEN 82 mg/dL 7-21 (BEAKER) (test hmpn=633) CREATININE (BEAKER) (test 3.52 mg/dL 0.57-1.25 nmjf=165) GLUCOSE RANDOM (BEAKER) 209 mg/dL 70-105 (test dgbe=265) CALCIUM (BEAKER) (test 8.8 mg/dL 8.4-10.2 rnwl=783) EGFR (BEAKER) (test 17 mL/min/1.73 sq m ESTIMATED GFR IS NOT eqni=8157) ACCURATE CREATININE CLEARANCE IN PREDICTING GLOMERULAR FILTRATION RATE. ESTIMATED GFR IS NOT APPLICABLE FOR DIALYSIS PATIENTS. [id number] 04:34:00 Test Item Value Reference Range Comments PHOSPHORUS (BEAKER) (test qhxt=074) 5.8 mg/dL 2.3-4.7 [id number] 04:34:00 Test Item Value Reference Range Comments MAGNESIUM (BEAKER) (test ljab=916) 1.9 mg/dL 1.6-2.6 VANCOMYCIN LEVEL, [id number] 04:27:00 Test Item Value Reference Range Comments VANCOMYCIN RANDOM (BEAKER) (test faun=792) 14.6 ug/mL Reference Range: No NormalsCBC W/PLT COUNT & AUTO [id number] 04: 25:00 Test Item Value Reference Range Comments WHITE BLOOD CELL COUNT (BEAKER) (test szng=714) 11.6 K/ L 3.5-10.5 RED BLOOD CELL COUNT (BEAKER) (test vybt=464) 3.57 M/ L 4.63-6.08 HEMOGLOBIN (BEAKER) (test jrje=102) 11.4 GM/DL 13.7-17.5 HEMATOCRIT (BEAKER) (test jqix=332) 34.0 % 40.1-51.0 MEAN CORPUSCULAR VOLUME (BEAKER) (test uguh=307) 95.2 fL 79.0-92.2 MEAN CORPUSCULAR HEMOGLOBIN (BEAKER) (test 31.9 pg 25.7-32.2 aned=663) MEAN CORPUSCULAR HEMOGLOBIN CONC (BEAKER) (test 33.5 GM/DL 32.3-36.5 dyyk=822) RED CELL DISTRIBUTION WIDTH (BEAKER) (test 14.2 % 11.6-14.4 skcf=744) PLATELET COUNT (BEAKER) (test pyxj=642) 220 K/CU MM 150-450 MEAN PLATELET VOLUME (BEAKER) (test qgen=538) 9.7 fL 9.4-12.4 NUCLEATED RED BLOOD CELLS (BEAKER) (test 0 /100 WBC 0-0 pdxf=759) NEUTROPHILS RELATIVE PERCENT (BEAKER) (test 77 % qjed=755) LYMPHOCYTES RELATIVE PERCENT (BEAKER) (test 9 % qrrl=172) MONOCYTES RELATIVE PERCENT (BEAKER) (test 8 % dmiz=843) EOSINOPHILS RELATIVE PERCENT (BEAKER) (test 2 % dngv=589) BASOPHILS RELATIVE PERCENT (BEAKER) (test 1 % wccv=674) NEUTROPHILS ABSOLUTE COUNT (BEAKER) (test 8.88 K/ L 1.78-5.38 jxum=457) LYMPHOCYTES ABSOLUTE COUNT (BEAKER) (test 1.04 K/ L 1.32-3.57 lumn=306) MONOCYTES ABSOLUTE COUNT (BEAKER) (test 0.92 K/ L 0.30-0.82 xsts=894) EOSINOPHILS ABSOLUTE COUNT (BEAKER) (test 0.19 K/ L 0.04-0.54 mfsh=541) BASOPHILS ABSOLUTE COUNT (BEAKER) (test 0.06 K/ L 0.01-0.08 alwn=409) IMMATURE GRANULOCYTES-RELATIVE PERCENT (BEAKER) 5 % 0-1 (test uvdk=8327) POCT-GLUCOSE [id number] 02:05:00 Test Item Value Reference Range Comments POC-GLUCOSE METER (BEAKER) 145 mg/dL 70-110 TESTED AT [facility] [address] [facility] (test hulo=7491) [facility] [address] BODY FLUID CELL COUNT WITH [id number] 18:40:00 Test Item Value Reference Range Comments APPEARANCE FLUID (BEAKER) (test vnfj=317) Hazy Clear COLOR FLUID (BEAKER) (test jxel=613) [place] Colorless, Straw RBC FLUID (BEAKER) (test dgoe=652) 3450 /cu mm <=1 ADJUSTED WBC FLUID (BEAKER) (test oeiy=9795) 145 /cu mm <=5 LINING CELLS (BEAKER) (test rmch=5705) 0 /cu mm <=1 NEUTROPHILS FLUID (BEAKER) (test fock=3769) 85 % LYMPHS FLUID (BEAKER) (test scqb=724) 0 % MONO/MACROPHAGE FLUID (BEAKER) (test kthp=579) 15 % EOSINOPHILS FLUID (BEAKER) (test hagv=855) 0 % BASO FLUID (BEAKER) (test sqkp=343) 0 % CONTAINER BODY FLUID (BEAKER) (test xpot=2022) EDTA Tube POCT-GLUCOSE [id number] 18:12:00 Test Item Value Reference Range Comments POC-GLUCOSE METER (AKER) 195 mg/dL 70-110 TESTED AT [address] (test xnux=5081) [facility] [address] VITAMIN D, [id number] 15:12:00 Test Item Value Reference Range Comments VITAMIN D 25-OH ([facility]) (test pstx=8301) 31.9 ng/mL 6.6-49.9 Effective 09/01/2017: Reference Range ChangeNew: 6.6-49.9 ng/mL Previous: 13.0 -47.8 ng/mLRecommended Vitamin D Target Range: 30.0-40.0 ng/mLPTH, [id number] 14:57:00 Test Item Value Reference Range Comments PARATHYROID HORMONE INTACT (BEAKER) (test 251.9 pg/mL 8.5-72.5 xkgz=174) POTASSIUM, RANDOM [id number] 14:55:00 Test Item Value Reference Range Comments POTASSIUM URINE (BEAKER) (test afcp=006) 21.6 meq/L Reference Range: No NormalsUREA NITROGEN, RANDOM [id number] 14:55:00 Test Item Value Reference Range Comments UREA NITROGEN URINE (BEAKER) (test vkdf=784) 603 mg/dL Reference Range: No NormalsPOCT-GLUCOSE [id number] 12:17:00 Test Item Value Reference Range Comments POC-GLUCOSE METER (BEAKER) 170 mg/dL 70-110 TESTED AT [address] (test gnmr=6325) [place] [id number] 10:56:00 Test Item Value Reference Range Comments PARTIAL THROMBOPLASTIN TIME (AKER) (test 35.0 seconds 22.5-36.0 agvh=046) Prior to initiating heparinRAD, ABDOMEN/KUB, 1 VIEW [id number] 08:28:00Reason for exam:->OG positioningFINAL REPORT Abdomen date Comment: Frontal view of the abdomen demonstrates a nasogastric tube present with tip noted in the body of the stomach. Signed: Keya Harris MDReport Verified Date/Time: 01/18/2019 08:28:12 Reading Location: [facility] Reading Room POCT-GLUCOSE [id number] 06:12:00 Test Item Value Reference Range Comments POC-GLUCOSE METER (BEAKER) 161 mg/dL 70-110 TESTED AT [facility] [address] (test jpih=4545) [facility] [address] VITAMIN [id number] 04:17:00 Test Item Value Reference Range Comments VITAMIN B12 (BEAKER) (test mlif=705) 1363 pg/mL 213-816 Next blood drawNext blood drawNext blood [id number] 04:17:00 Test Item Value Reference Range Comments FERRITIN (BEAKER) (test lkla=852) 306 ng/mL 5-275 Next blood drawNext blood drawNext blood drawURINALYSIS W/ REFLEX URINE [id number] 03:55:00 Test Item Value Reference Range Comments COLOR (BEAKER) (test nccv=171) Yellow CLARITY (BEAKER) (test xqkr=442) Cloudy SPECIFIC GRAVITY UA (BEAKER) (test nqgh=805) 1.012 1.001-1.035 PH UA (BEAKER) (test zyrg=407) 5.5 5.0-8.0 PROTEIN UA (BEAKER) (test gixe=945) 30 mg/dL Negative GLUCOSE UA (BEAKER) (test ktbj=468) Negative Negative KETONES UA (BEAKER) (test zbst=004) Negative Negative BILIRUBIN UA (BEAKER) (test tuqy=049) Negative Negative BLOOD UA (BEAKER) (test yyss=043) Moderate Negative NITRITE UA (BEAKER) (test hgtb=673) Negative Negative LEUKOCYTE ESTERASE UA (BEAKER) (test ppef=616) Large Negative UROBILINOGEN UA (BEAKER) (test kddv=724) 0.2 mg/dL 0.2-1.0 RBC UA (BEAKER) (test dmyp=323) 27 /HPF WBC UA (BEAKER) (test czih=929) 536 /HPF BACTERIA (BEAKER) (test bgtq=219) Few MUCUS (BEAKER) (test teon=8021) Occasional SQUAMOUS EPITHELIAL (BEAKER) (test gvnc=270) 3 /HPF AMORPHOUS CRYSTALS (BEAKER) (test inmo=6138) Moderate YEAST (BEAKER) (test dkpe=5562) Many SOURCE(BEAKER) (test lihw=9118) IRON, TIBC, % SAT. (WITHOUT FERRITIN)2019-01-18 03:54:00 Test Item Value Reference Range Comments IRON (BEAKER) (test atdj=277) 59.0 ug/dL 40.0-160.0 TOTAL IRON BINDING CAPACITY (BEAKER) (test 160 ug/dL 250-450 pzaa=012) IRON % SATURATION (2) (BEAKER) (test bpqv=8844) 37 % 20-55 Next blood drawNext blood drawNext blood drawCOMPREHENSIVE METABOLIC [id number] 03:16:00 Test Item Value Reference Range Comments TOTAL PROTEIN (BEAKER) 6.0 gm/dL 6.0-8.3 (test owkv=052) ALBUMIN (BEAKER) (test 2.7 g/dL 3.5-5.0 ttqr=7700) ALKALINE PHOSPHATASE 83 U/L 40-150 (BEAKER) (test cewt=644) BILIRUBIN TOTAL (BEAKER) 1.0 mg/dL 0.2-1.2 (test rdbp=559) SODIUM (BEAKER) (test 136 meq/L 136-145 guju=850) POTASSIUM (BEAKER) (test 4.3 meq/L 3.5-5.1 pzkz=041) CHLORIDE (BEAKER) (test 104 meq/L 98-107 cbvc=372) CO2 (BEAKER) (test 20 meq/L 22-29 ikcu=848) BLOOD UREA NITROGEN 80 mg/dL 7-21 (BEAKER) (test gbqb=198) CREATININE (BEAKER) (test 3.90 mg/dL 0.57-1.25 nljh=031) GLUCOSE RANDOM (BEAKER) 151 mg/dL 70-105 (test sqxq=729) CALCIUM (BEAKER) (test 8.2 mg/dL 8.4-10.2 apdy=968) AST (SGOT) (BEAKER) (test 26 U/L 5-34 hvoq=770) ALT (SGPT) (BEAKER) (test 21 U/L 6-55 ffkm=126) EGFR (BEAKER) (test 15 mL/min/1.73 sq m ESTIMATED GFR IS NOT wape=3079) ACCURATE CREATININE CLEARANCE IN PREDICTING GLOMERULAR FILTRATION RATE. ESTIMATED GFR IS NOT APPLICABLE FOR DIALYSIS PATIENTS. B-TYPE NATRIURETIC FACTOR (BNP)2019-01-18 03:08:00 Test Item Value Reference Range Comments B-TYPE NATRIURETIC PEPTIDE (BEAKER) (test 114 pg/mL 0-100 aloq=894) CREATININE, RANDOM [id number] 03:01:00 Test Item Value Reference Range Comments CREATININE URINE (BEAKER) (test igwr=957) 82.0 mg/dL Reference Range: No NormalsPROTEIN, RANDOM [id number] 03:01:00 Test Item Value Reference Range Comments PROTEIN, URINE (BEAKER) (test hxze=2176) 23 mg/dL 0-14 SODIUM, RANDOM [id number] 03:01:00 Test Item Value Reference Range Comments SODIUM URINE (BEAKER) (test dhog=517) 30 meq/L Reference Range: No [id number] 02:58:00 Test Item Value Reference Range Comments PHOSPHORUS (BEAKER) (test hgpq=708) 5.3 mg/dL 2.3-4.7 [id number] 02:58:00 Test Item Value Reference Range Comments MAGNESIUM (BEAKER) (test hzgm=408) 1.8 mg/dL 1.6-2.6 LACTIC ACID, ARTERIAL, WHOLE [id number] 02:57:00 Test Item Value Reference Range Comments LACTATE BLOOD ARTERIAL (2) 0.7 mmol/L 0.5-2.2 Specimen slightly hemolyzed (BEAKER) (test swnd=3592) PROTHROMBIN TIME/[id number] 02:53:00 Test Item Value Reference Range Comments PROTIME (BEAKER) (test xolg=841) 15.9 seconds 11.7-14.7 INR (BEAKER) (test wabl=895) 1.3 <=5.9 RECOMMENDED COUMADIN/WARFARIN INR THERAPY RANGESSTANDARD DOSE: 2.0 - 3.0 Includes: PROPHYLAXIS forvenous thrombosis, systemic embolization; TREATMENT for venous thrombosis and/or pulmonary embolus.HIGH RISK: Target INR is 2.5-3.5 for patients with mechanical heart valves.[id number] 02:53:00 Test Item Value Reference Range Comments PARTIAL THROMBOPLASTIN TIME (BEAKER) (test 35.0 seconds 22.5-36.0 vtxx=505) CBC W/PLT COUNT & AUTO [id number] 02:47:00 Test Item Value Reference Range Comments WHITE BLOOD CELL COUNT (BEAKER) (test iuyp=795) 11.3 K/ L 3.5-10.5 RED BLOOD CELL COUNT (BEAKER) (test bgcy=789) 3.51 M/ L 4.63-6.08 HEMOGLOBIN (BEAKER) (test nibf=893) 10.8 GM/DL 13.7-17.5 HEMATOCRIT (BEAKER) (test khzg=836) 33.4 % 40.1-51.0 MEAN CORPUSCULAR VOLUME (BEAKER) (test vlzr=326) 95.2 fL 79.0-92.2 MEAN CORPUSCULAR HEMOGLOBIN (BEAKER) (test 30.8 pg 25.7-32.2 sdgj=210) MEAN CORPUSCULAR HEMOGLOBIN CONC (BEAKER) (test 32.3 GM/DL 32.3-36.5 wxet=812) RED CELL DISTRIBUTION WIDTH (BEAKER) (test 14.2 % 11.6-14.4 wbbd=460) PLATELET COUNT (BEAKER) (test eknq=326) 172 K/CU MM 150-450 MEAN PLATELET VOLUME (BEAKER) (test qpww=229) 9.5 fL 9.4-12.4 NUCLEATED RED BLOOD CELLS (BEAKER) (test 0 /100 WBC 0-0 zbky=902) NEUTROPHILS RELATIVE PERCENT (BEAKER) (test 70 % udqf=859) LYMPHOCYTES RELATIVE PERCENT (BEAKER) (test 10 % vwdd=632) MONOCYTES RELATIVE PERCENT (BEAKER) (test 10 % xteo=450) EOSINOPHILS RELATIVE PERCENT (BEAKER) (test 2 % adzm=442) BASOPHILS RELATIVE PERCENT (BEAKER) (test 1 % cpbk=737) NEUTROPHILS ABSOLUTE COUNT (BEAKER) (test 7.88 K/ L 1.78-5.38 gxgk=375) LYMPHOCYTES ABSOLUTE COUNT (BEAKER) (test 1.16 K/ L 1.32-3.57 mflk=543) MONOCYTES ABSOLUTE COUNT (BEAKER) (test 1.13 K/ L 0.30-0.82 jska=019) EOSINOPHILS ABSOLUTE COUNT (BEAKER) (test 0.25 K/ L 0.04-0.54 hhyo=888) BASOPHILS ABSOLUTE COUNT (BEAKER) (test 0.07 K/ L 0.01-0.08 nlqc=744) IMMATURE GRANULOCYTES-RELATIVE PERCENT (BEAKER) 7 % 0-1 (test advq=2566) RAD, CHEST, 1 VIEW, NON [id number] 02:39:00Reason for exam:->advanced ET.Should this be performed [...] Stable contours. Additional findings: None. Signed: Lauren Christine Verified Date/Time: 01/18/2019 02:39:22 Reading Location: [address] Transitional Reading Room BLOOD GAS, [id number] 02:20:00 Test Item Value Reference Range Comments PH ARTERIAL (BEAKER) (test xvcy=695) 7.41 7.35-7.45 PCO2 ARTERIAL (BEAKER) (test wpik=241) 39 mmHg 35-45 PO2 ARTERIAL (BEAKER) (test iqcl=851) 89 mmHg 80-90 O2 SATURATION ARTERIAL (BEAKER) (test rbsn=651) 96.8 % 96.0-97.0 HCO3 ARTERIAL (BEAKER) (test yptg=044) 24 mmol/L 21-29 BASE EXCESS ARTERIAL (BEAKER) (test hyrx=090) -0.4 mmol/L -2.0-3.0 PATIENT TEMPERATURE (BEAKER) (test rqmk=1617) 37.1 C FIO2 (BEAKER) (test aalg=7531) 50.0 % RAD, CHEST, 1 VIEW, NON [id number] 02:18:00Post-intubationReason for exam:-& gt;intubated, pneumoniaShould this be [...] dextrocurvature of the thoracic spine. Signed: Lauren Christine Verified Date/Time: 01/18/2019 02:18:06 Reading Location: [address] Transitional Reading Room
[2019-12-13] MEDS ORDERED: NA CHLORIDE 0.9% 500 ML ONE ×2 (15:37→16:38)
[2019-12-13 15:51] LABS: Absolute Lymphocytes (CBC) 1.2 K/uL (0.7-4.9); Basophils % 0.2 % (0-1.3); Hematocrit 39.6 % (39.6-49.0); Lymphocytes % 7.3 % (15.3-44.8); MPV 8.1 fL (7.6-11.3); RBC Red Blood Cell Count 4.16 M/uL (4.33-5.43)
[2019-12-13 15:55] LABS: Urine Blood 3+ (NEG); Urine Glucose NEGATIVE (NEG); Urine Protein 1+ (NEG)
[2019-12-13 16:02] LABS: Protime INR 2.29
[2019-12-13 16:07] LABS: ALT/SGPT 41 U/L (12-78); AST/SGOT 31 U/L (15-37); Albumin 2.4 g/dL (3.4-5.0); Alkaline Phosphatase 72 U/L (45-117); BUN Blood Urea Nitrogen 30 mg/dL (7-18); Bicarbonate 25 mmol/L (21-32); Bilirubin Direct 0.2 mg/dL (0-0.2); Bilirubin Total 0.5 mg/dL (0.2-1.0); Glucose Level 181 mg/dL (74-106); Lipase 52 U/L (73-393); Potassium 4.7 mmol/L (3.5-5.1); Protein, Total 6.9 g/dL (6.4-8.2); Sodium Level 130 mmol/L (136-145); Troponin (Emerg Dept Use Only) < 0.02 ng/mL (0.0-0.045)
[2019-12-13 16:08] LABS: Blood Morphology Comment NOT SEEN (NOT SEEN); Platelet Estimate DECR; Toxic Granulation 1+; Urine White Blood Cell Casts OK
--- NOTE | 2019-12-13 16:08 | RAD REPORT ---
EXAM DESCRIPTION: RAD - Chest Single View - 12/13/2019 3:41 pm CLINICAL HISTORY: hypotension;Cough COMPARISON: Chest Single View dated 07/12/2019; Chest Single View dated 01/17/2019 TECHNIQUE: AP portable chest image was obtained 12/13/2019 3:41 pm . FINDINGS: Slightly underinflated with no peripheral consolidation or mass. Interstitial pattern is m ildly prominent compared to the earlier study. Heart and vasculature are normal. No measurable pleura l effusion and no pneumothorax. No acute bony abnormality seen. No acute aortic findings suspected. IMPRESSION: Suspected mild interstitial edema or infiltrate. No peripheral mass or consolidation.
[2019-12-13 16:11] LABS: Urine Bacteria >50 /HPF (NONE SEEN); Urine Culture Reflex Order NOT NEEDED; Urine Mucus 2+ /HPF (NONE SEEN)
--- NOTE | 2019-12-13 16:25 | EDPHYS ---
Physician Documentation [facility] Name: Elbert Miller Age: 79 yrs Sex: Male : 1940 Arrival Date: 12/13/2019 Time: 14:42 Bed 19 Private MD: ED Physician Cliff Duarte HPI: 12/13 15:55 This 79 yrs old Male presents to ER via EMS with complaints of hypotension. rn 15:55 Home nurse noticed low blood pressure, has frequent UTIs, reports generalized weakness rn and subjective fever. Has also had mild cough and congestion.. Onset: The symptoms/episode began/occurred today. Severity of symptoms: At their worst the symptoms were moderate in the emergency department the symptoms are unchanged. The patient has experienced similar episodes in the past. The patient has not recently seen a physician. Historical: - Allergies: 14:57 chlorpromazine HCl; tw2 14:57 Demerol; tw2 14:57 fluoxetine HCl; tw2 14:57 paroxetine HCl; tw2 14:57 Sulfa (Sulfonamide Antibiotics); tw2 14:57 clopidogrel bisulfate; tw2 - Home Meds: 14:57 Ambien 10 mg Oral tab 1 tab once daily [Active]; Cipro 500 mg Oral tab 1 tab every 12 tw2 hours [Active]; Claritin-D 24 Hour 10-240 mg Oral Tb24 1 tab once daily [Active]; Coumadin 2 mg Oral tab 1 tab 6 days a week Wed-Wed, 1/2 tab on Wednesday [Active]; gabapentin 600 mg Oral tab 1 tab four times a day [Active]; hydromorphone 8 mg Oral tab 1 tab every 6 hours [Active]; hydromorphone 4 mg Oral tab 1 tab every 6 hours [Active]; Iron CR Oral [Active]; metoprolol tartrate 25 mg Oral tab 1 tab 2 times per day [Active]; lorazepam 0.5 mg Oral tab 1 tab 3 times per day [Active]; Zantac 150 mg Oral tab 1 tab 2 times per day [Active]; sertraline 50 mg Oral tab 1 tab once daily [Active]; phenazopyridine 200 mg Oral tab 1 tab 3 times per day [Active]; tramadol 50 mg Oral tab 1 tab every 6 hours [Active]; [place] 10-325 mg Oral tab 1 tab every 6 hours [Active]; pantoprazole 40 mg Oral TbEC 1 tab once daily [Active]; trazodone 100 mg Oral tab 1 tab nightly [Active]; Vitamin D Oral [Active]; warfarin 5 mg Oral tab 1 tab once daily [Active]; trimethoprim 100 mg Oral tab 1 tab daily [Active]; nitrofurantoin macrocrystal 100 mg Oral cap 1 cap q 12 hours [Active]; Multiple Vitamins Oral tab [Active]; - PMHx: 14:57 spinal stenosis; restless leg syndrome; neuropathy of right leg; lymphadema bilateral tw2 legs; Hypertension; Herniated disc; PE; Hernia; blood clot in lungs; Atrial Fib; Arthritis; CHF; - Immunization history:: Adult Immunizations. - Social history:: Smoking status: . - Ebola Screening: : Patient denies travel to an Ebola-affected area in the 21 days before illness onset. - Family history:: not pertinent. - Hospitalizations: : No recent hospitalization is reported. ROS: 15:55 Constitutional: + subjective fever Eyes: Negative for injury, pain, redness, and prevention rn, Neck: Negative for injury, pain, and swelling, Cardiovascular: Negative for chest pain, palpitations, and edema, Respiratory: Negative for shortness of breath, wheezing, and pleuritic chest pain, Abdomen/GI: Negative for abdominal pain, nausea, vomiting, diarrhea, and constipation, : Negative for injury, bleeding, discharge, and swelling, MS/Extremity: Negative for injury and deformity, Skin: Negative for injury, rash, and discoloration, Neuro: + generalized weakness Exam: 15:55 Constitutional: Obese male, no acute distress, appears flushed Head/Face: rn Normocephalic, atraumatic. ENT: dry MM Cardiovascular: Regular rate and rhythm. No pulse deficits. Respiratory: + clear bilateral breath sounds Abdomen/GI: soft, non-tender, + large left sided abd hernia without skin changes or tenderness MS/ Extremity: Pulses equal, no cyanosis. + chronic lymphedema changes of bilateral lower ext. Neuro: Awake and alert, GCS 15, oriented to person, place, time, and situation. Cranial nerves II-XII grossly intact. Motor strength 4/5 in all extremities. Sensory grossly intact. Vital Signs: 14:52 BP 82 / 29; Pulse 78; Resp 20; Temp 98(O); Pulse Ox 99% on R/A; Weight 165.56 kg (R); tw2 Height 5 ft. 10 in. (177.80 cm); Pain 7/10; 15:11 BP 74 / 35; Pulse 96; Resp 16; Pulse Ox 99% on R/A; tw2 15:49 BP 74 / 42; Pulse 88; Resp 17; Pulse Ox 95% on R/A; tw2 16:24 BP 81 / 54; Pulse 104; Resp 17; Pulse Ox 100% on R/A; tw2 16:54 BP 92 / 73; Pulse 97; Resp 11; Pulse Ox 100% on R/A; tw2 17:30 BP 72 / 48; Pulse 95; Resp 20; Pulse Ox 96% on R/A; tw2 18:16 BP 73 / 49; Pulse 92; Resp 17; Pulse Ox 100% on R/A; tw2 14:52 Body Mass Index 52.37 (165.56 kg, 177.80 cm) tw2 MDM: 15:05 Patient medically screened. rn 16:22 Differential Diagnosis sepsis, UTI, pneumonia. Data reviewed: vital signs, nurses rn notes, lab test result(s), radiologic studies, plain films, and as a result, I will admit patient. Counseling: I had a detailed discussion with the patient and/or guardian regarding: the historical points, exam findings, and any diagnostic results supporting the discharge/admit diagnosis, lab results, radiology results, the need for further work-up and treatment in the hospital. Response to treatment: the patient's symptoms have mildly improved after treatment, and as a result, I will admit patient. Admission orders: after a detailed discussion of the patient's condition and case, the admit orders are written by me. ED course: Pt with hypotension, possibly related to UTI/urosepsis, also questionable pneumonia and patient reports cough lately, could be concomitant pneumonia. Will admit for abx, fluids, and sepsis. . 16:27 ED course: Going slow on fluids 2/2 lymphedema and CHF, BP improving, currently getting rn 2nd 500cc bolus.. 12/13 15:19 Order name: Urine Culture rn 12/13 15:19 Order name: Protime (+inr); Complete Time: 16:14 rn 12/13 15:19 Order name: Basic Metabolic Panel; Complete Time: 16:14 rn 12/13 15:19 Order name: Blood Culture Adult (2) rn 12/13 15:19 Order name: CBC with Diff rn 12/13 15:19 Order name: Lactate; Complete Time: 16:17 rn 12/13 15:19 Order name: LFT's; Complete Time: 16:14 rn 12/13 15:19 Order name: Lipase; Complete Time: 16:14 rn 12/13 15:19 Order name: Procalcitonin rn 12/13 15:19 Order name: Troponin (emerg Dept Use Only); Complete Time: 16:14 rn 12/13 15:19 Order name: Urine Microscopic Only; Complete Time: 16:14 rn 12/13 15:20 Order name: Flu; Complete Time: 16:14 rn 12/13 15:40 Order name: Urine Dipstick--Ancillary (enter results); Complete Time: 16:14 bd 12/13 16:11 Order name: CBC Smear Scan EDMS 12/13 15:19 Order name: Chest Single View XRAY; Complete Time: 16:14 rn 12/13 15:19 Order name: Cardiac monitoring; Complete Time: 15:20 rn 12/13 15:19 Order name: EKG - Nurse/Tech; Complete Time: 18:24 rn 12/13 15:19 Order name: IV Saline Lock - Large Bore; Complete Time: 15:20 rn 12/13 15:19 Order name: Labs collected and sent; Complete Time: 15:21 rn 12/13 15:19 Order name: O2 Per Protocol; Complete Time: 15:20 rn 12/13 15:19 Order name: O2 Sat Monitoring; Complete Time: 15:21 rn 12/13 15:19 Order name: Urine Dipstick-Ancillary (obtain specimen); Complete Time: 15:47 rn Administered Medications: 15:48 Drug: NS 0.9% 500 ml Route: IV; Rate: bolus; Site: right upper arm; tw2 16:23 Follow up: Response: No adverse reaction; IV Status: Completed infusion; IV Intake: tw2 500ml 16:48 Drug: Rocephin - (cefTRIAXone) 1 grams Route: IVPB; Infused Over: 5 mins; Site: right tw2 upper arm; 16:53 Follow up: IV Status: Completed infusion; IVP available only from pharmacy tw2 16:50 Drug: [place] 5 mg-325 mg 1 tabs {Note: rass 0.} Route: PO; tw2 18:19 Follow up: Response: No adverse reaction; No change in condition; Pain is unchanged, tw2 physician notified; RASS: Alert and Calm (0) 16:53 Drug: NS 0.9% 500 ml Route: IV; Rate: bolus; Site: right upper arm; tw2 18:20 Follow up: Response: No adverse reaction; IV Status: Completed infusion; IV Intake: tw2 500ml 17:45 Drug: Zithromax 500 mg Route: IVPB; Infused Over: 1 hrs; Site: left upper arm; tw2 18:20 Follow up: IV Status: Infusion continued upon admission tw2 Disposition: 12/13/19 16:24 Hospitalization ordered by Brittney Park for Inpatient Admission. Preliminary diagnosis are Sepsis, Urinary tract infection, site not specified, Pneumonia. - Bed requested for Intensive Care Unit. - Status is Inpatient Admission. tw2 - Condition is Stable. - Problem is new. - Symptoms have improved. UTI on Admission? Yes Critical care time excluding procedures: 16:27 Critical care time: Bedside Care: 25 minutes, Consultation: 5 minutes, Family rn Intervention: 5 minutes. Total time: 35 minutes Signatures: Dispatcher [employer] EDMS May Caruso Roman, MD MD rn Wise, Tara, RN RN tw2 Corrections: (The following items were deleted from the chart) 15:21 15:19 Accucheck ordered. rn tw2 17:29 16:24 Hospitalization Ordered by Brittney Park MD for Inpatient Admission. Preliminary bd diagnosis is Sepsis; Urinary tract infection, site not specified; Pneumonia. Bed requested for Telemetry/MedSurg (Inpatient). Status is Inpatient Admission. Condition is Stable. Problem is new. Symptoms have improved. UTI on Admission? Yes. rn 18:25 17:29 12/13/2019 16:24 Hospitalization Ordered by Brittney Park MD for Inpatient tw2 Admission. Preliminary diagnosis is Sepsis; Urinary tract infection, site not specified; Pneumonia. Bed requested for Intensive Care Unit. Status is Inpatient Admission. Condition is Stable. Problem is new. Symptoms have improved. UTI on Admission? Yes. bd
--- NOTE | 2019-12-13 16:25 | ER ---
Nurse's Notes [facility] Name: Elbert Miller Age: 79 yrs Sex: Male : 1940 Arrival Date: 12/13/2019 Time: 14:42 Bed 19 Private MD: Diagnosis: Sepsis;Urinary tract infection, site not specified;Pneumonia Presentation: 12/13 14:43 Presenting complaint: EMS states: pt has Home health nurse that visited and changed his tw2 sims 2 days ago, twice in 1 day, then today his blood pressure was low 80's/40's bgl was 253, sims is in place to gravity and is draining. Transition of care: patient was not received from another setting of care. Onset of symptoms was December 13, 2019. Risk Assessment: Do you want to hurt yourself or someone else? Patient reports no desire to harm self or others. Note karen lift needed to move pt from EMS stretcher to exam bed. 14:43 Method Of Arrival: EMS: [facility] tw2 14:50 Presenting complaint: EMS states: we initially got 94/51, hr 78 hx afib, 2nd pressure tw2 when we got here was 85/60. Initial Sepsis Screen: Does the patient meet any 2 criteria? No. Patient's initial sepsis screen is negative. Does the patient have a suspected source of infection? Yes: Catheter related infection (Sims/dialysis/PICC/central line) Skin breakdown/wound. Care prior to arrival: None. 14:50 Acuity: [place] 2 tw2 Triage Assessment: 14:52 General: Appears obese, Behavior is calm, cooperative, appropriate for age. Pain: tw2 Complains of pain in sims and b/l LE. Historical: - Allergies: 14:57 chlorpromazine HCl; tw2 14:57 Demerol; tw2 14:57 fluoxetine HCl; tw2 14:57 paroxetine HCl; tw2 14:57 Sulfa (Sulfonamide Antibiotics); tw2 14:57 clopidogrel bisulfate; tw2 - Home Meds: 14:57 Ambien 10 mg Oral tab 1 tab once daily [Active]; Cipro 500 mg Oral tab 1 tab every 12 tw2 hours [Active]; Claritin-D 24 Hour 10-240 mg Oral Tb24 1 tab once daily [Active]; Coumadin 2 mg Oral tab 1 tab 6 days a week Wed-Wed, 1/2 tab on Wednesday [Active]; gabapentin 600 mg Oral tab 1 tab four times a day [Active]; hydromorphone 8 mg Oral tab 1 tab every 6 hours [Active]; hydromorphone 4 mg Oral tab 1 tab every 6 hours [Active]; Iron CR Oral [Active]; metoprolol tartrate 25 mg Oral tab 1 tab 2 times per day [Active]; lorazepam 0.5 mg Oral tab 1 tab 3 times per day [Active]; Zantac 150 mg Oral tab 1 tab 2 times per day [Active]; sertraline 50 mg Oral tab 1 tab once daily [Active]; phenazopyridine 200 mg Oral tab 1 tab 3 times per day [Active]; tramadol 50 mg Oral tab 1 tab every 6 hours [Active]; [place] 10-325 mg Oral tab 1 tab every 6 hours [Active]; pantoprazole 40 mg Oral TbEC 1 tab once daily [Active]; trazodone 100 mg Oral tab 1 tab nightly [Active]; Vitamin D Oral [Active]; warfarin 5 mg Oral tab 1 tab once daily [Active]; trimethoprim 100 mg Oral tab 1 tab daily [Active]; nitrofurantoin macrocrystal 100 mg Oral cap 1 cap q 12 hours [Active]; Multiple Vitamins Oral tab [Active]; - PMHx: 14:57 spinal stenosis; restless leg syndrome; neuropathy of right leg; lymphadema bilateral tw2 legs; Hypertension; Herniated disc; PE; Hernia; blood clot in lungs; Atrial Fib; Arthritis; CHF; - Immunization history:: Adult Immunizations. - Social history:: Smoking status: . - Ebola Screening: : Patient denies travel to an Ebola-affected area in the 21 days before illness onset. - Family history:: not pertinent. - Hospitalizations: : No recent hospitalization is reported. Screenin:57 Abuse screen: Denies threats or abuse. Nutritional screening: No deficits noted. tw2 Tuberculosis screening: No symptoms or risk factors identified. Fall Risk Secondary diagnosis (15 points) impaired mobility. Assessment: 15:10 Reassessment: Dr. Duarte at bedside at this time and aware of pts blood pressure. tw2 15:11 General: Appears in no apparent distress. obese, unkempt, Behavior is calm, tw2 cooperative, appropriate for age. Neuro: Level of Consciousness is awake, alert, obeys commands, Oriented to person, place, time, situation. Cardiovascular: Heart tones S1 S2 Patient's skin is warm and dry. Respiratory: Airway is patent Respiratory effort is even, unlabored, Respiratory pattern is regular, symmetrical, Breath sounds are clear bilaterally. GI: Abdomen is round obese, appears to be a hernia on the left side of the abdomen. : sims catheter in place, pt reports Homehealth replacing it twice 2 days ago. EENT: No signs and/or symptoms were reported regarding the EENT system. Derm: Skin is dry, Skin temperature is warm. Derm: b/l LE weeping and cannon, scaley dry skin noted. Musculoskeletal: Range of motion: intact in all extremities, pt reports not being able to ambulate since december. 15:49 Reassessment: Patient appears in no apparent distress at this time. No changes from tw2 previously documented assessment. Patient and/or family updated on plan of care and expected duration. Pain level reassessed. 16:25 Reassessment: pt c/o back pain. tw2 16:54 Reassessment: No changes from previously documented assessment. Patient and/or family tw2 updated on plan of care and expected duration. Pain level reassessed. Patient states symptoms have not improved. Vital Signs: 14:52 BP 82 / 29; Pulse 78; Resp 20; Temp 98(O); Pulse Ox 99% on R/A; Weight 165.56 kg (R); tw2 Height 5 ft. 10 in. (177.80 cm); Pain 7/10; 15:11 BP 74 / 35; Pulse 96; Resp 16; Pulse Ox 99% on R/A; tw2 15:49 BP 74 / 42; Pulse 88; Resp 17; Pulse Ox 95% on R/A; tw2 16:24 BP 81 / 54; Pulse 104; Resp 17; Pulse Ox 100% on R/A; tw2 16:54 BP 92 / 73; Pulse 97; Resp 11; Pulse Ox 100% on R/A; tw2 17:30 BP 72 / 48; Pulse 95; Resp 20; Pulse Ox 96% on R/A; tw2 18:16 BP 73 / 49; Pulse 92; Resp 17; Pulse Ox 100% on R/A; tw2 14:52 Body Mass Index 52.37 (165.56 kg, 177.80 cm) tw2 ED Course: 14:42 Patient arrived in ED. tw2 14:46 Bed in low position. Call light in reach. Side rails up X2. tire bladder maker on. Pulse tw2 ox on. NIBP on. Warm blanket given. 14:51 Triage completed. tw2 14:53 Arm band placed on. tw2 15:04 Cliff Duarte MD is Attending Physician. rn 15:09 Narcisa Bush RN is Primary Nurse. tw2 15:10 Inserted saline lock: 20 gauge in left upper arm, using aseptic technique. ,using tw2 aseptic technique. by PAU Lombardo Blood collected. 15:11 Urine collected: Sims catheter specimen, cloudy, sera colored. sg 15:44 Chest Single View XRAY In Process Unspecified. EDMS 16:24 Brittney Park MD is Hospitalizing Provider. rn 18:17 No provider procedures requiring assistance completed. Patient admitted, IV remains in tw2 place. 18:24 PAU Mauricecorrection officer supervisor taking pt to ICU at this time. tw2 Administered Medications: 15:48 Drug: NS 0.9% 500 ml Route: IV; Rate: bolus; Site: right upper arm; tw2 16:23 Follow up: Response: No adverse reaction; IV Status: Completed infusion; IV Intake: tw2 500ml 16:48 Drug: Rocephin - (cefTRIAXone) 1 grams Route: IVPB; Infused Over: 5 mins; Site: right tw2 upper arm; 16:53 Follow up: IV Status: Completed infusion; IVP available only from pharmacy tw2 16:50 Drug: [place] 5 mg-325 mg 1 tabs {Note: rass 0.} Route: PO; tw2 18:19 Follow up: Response: No adverse reaction; No change in condition; Pain is unchanged, tw2 physician notified; RASS: Alert and Calm (0) 16:53 Drug: NS 0.9% 500 ml Route: IV; Rate: bolus; Site: right upper arm; tw2 18:20 Follow up: Response: No adverse reaction; IV Status: Completed infusion; IV Intake: tw2 500ml 17:45 Drug: Zithromax 500 mg Route: IVPB; Infused Over: 1 hrs; Site: left upper arm; tw2 18:20 Follow up: IV Status: Infusion continued upon admission tw2 Intake: 16:23 IV: 500ml; Total: 500ml. tw2 18:20 IV: 500ml; Total: 1000ml. tw2 Outcome: 16:24 Decision to Hospitalize by Provider. rn 18:17 Admitted to ICU accompanied by nurse, accompanied by tech, via stretcher, room 1, on tw2 monitor, with chart, Report called to PAU Rodriguez 18:17 Condition: stable 18:17 Instructed on the need for admit. 18:25 Patient left the ED. tw2 Signatures: Dispatcher [employer] EDGrupo Cook RN RN Cliff Hoff MD MD rn Wise, Tara, RN RN tw2 Corrections: (The following items were deleted from the chart) 18:17 14:52 BP 82 / 29; Pulse 78bpm; Resp 20bpm; Pulse Ox 99% RA; Temp 98F Oral; 165.56 kg tw2 Reported; Height 5 ft. 10 in.; BMI: 52.3; Pain 7/10; tw2
[2019-12-13] MEDS ORDERED: HYDROCODONE/APAP 5/325 MG TAB ONE (16:38)
[2019-12-13] MEDS ORDERED: CEFTRIAXONE/SWI 1gm 1 GM/10 ML SYR ONE (16:39)
[2019-12-13] MEDS ORDERED: AZITHROMYCIN IV 500 MG in NA CHLORIDE 0.9% 250 ML IVPB ONE (17:00)
[2019-12-13] MEDS ORDERED: NA CHLORIDE 0.9% 500 ML IV PRN (18:17)
[2019-12-13] MEDS ORDERED: ONDANSETRON 4 MG/2 ML VIAL IV PRN (18:17)
[2019-12-13] MEDS ORDERED: NOREPINEPHRINE 4 MG in D5W 250 ML IV PRN (18:53)
[2019-12-13 19:01] LABS: Arterial Blood Carboxyhemoglob 1.7 % (0-1.5); Blood Gas Oxyhemoglobin 91.9 % (94-97); Blood O2 Saturation 94.3 % (92-98.5)
[2019-12-13] MEDS: PIPER/TAZO/NS 2.25gm 2.25 GM/50 ML BAG IVPB SCH (19:29)
[2019-12-13] MEDS: NA CHLORIDE 0.9% 1,000 ML IV SCH (19:30)
--- NOTE | 2019-12-13 20:13 | HP ---
Date of Admission: 12/13/2019 Primary Care Physician: Out of town. Consultants: Darwin Estrada M.D. with Infectious Disease. Chief Complaint: Generalized weakness, fever, and chills. Code Status: Full. History Of Present Illness: Patient is a 79-year-old male with past medical history of hypertension, coronary artery disease, neuropathy, chronic atrial fibrillation on Coumadin, history of DVT and PE, congestive heart failure, chronic indwelling catheter, spinal stenosis of the back, chronic back naomi n, morbid obesity, who comes in with several-day history of generalized weakness, fever, chills, coug h and sputum production. Patient denies any ill contacts. No myalgias. Patient also had his chroni c Hannah catheter changed a couple of days ago, however, continued to have bladder spasms and required urinary catheter change again. Due to his worsening symptoms, which were constant and moderate, cam e into the ER. Patient was found to be septic. Blood pressure was 80s systolic over 30s. He was gi bety two 0.5 L boluses of normal saline, which improved his blood pressure to the 90s systolic. His w orkup revealed lactate of 3.3, procalcitonin was 2.27. His white count was 17,000, creatinine was 1. 85. Patient was given antibiotics and then referred for admission. When seen in the ER, he was awak e, alert, and oriented x3, in mild distress, complaining of pain in his leg as well. Past Medical History: Hypertension, coronary artery disease, neuropathy, chronic atrial fibrillation on anticoagulation, history of DVT and PE in 1994, congestive heart failure, chronic indwelling cath eter, spinal stenosis of the back and chronic back pain, GERD, iron deficiency anemia, and multiple h ernias. 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 Social History: Denies any tobacco use, alcohol use, or illicit drug use. Lives at home. Has home health aides and caregivers. Patient is a . No children. Retired. Family History: Father had heart disease, hypertension, and GI disease. Allergies: TO SULFA, PAROXETINE, PLAVIX, THORAZINE, AND PROZAC. Medications: List reviewed. Review of Systems: Ten-point system reviewed, negative except as per HPI. Physical Examination: Vital Signs: Blood pressure 74/35, pulse 96, respirations 16, O2 99% on room air, BMI is 52. General: Awake, alert, and oriented x3, in mild distress, ill-appearing elderly male, morbidly obese . HEENT: Normocephalic, atraumatic. PERRLA. EOMI. Dry mucous membranes. Oropharynx is clear. Poor dentition. Conjunctivae are anicteric. Neck: Supple. No JVD. Trachea midline. CV: S1, S2, irregularly, irregular. Peripheral pulses weak. Respiratory: Diminished breath sounds, some rhonchi heard. No wheezing or stridor. No use of acces mirza muscles. Gastrointestinal: Abdomen is soft, obese, multiple ventral hernias. Positive bowel sounds. No guar ding or rigidity. Unable to properly assess for organomegaly or masses. Extremities: No clubbing or cyanosis. Patient has diffuse peripheral edema 3+. Neuro: Cranial nerves 2 through 12 intact grossly. No focal neurological deficit. Speech is normal . Skin: Chronic venous stasis changes of the lower extremities. Psych: Mood is okay. Affect is full. Insight and judgment are good. Laboratory Data: Sodium 130, potassium 4.7, chloride 96, CO2 of 25, BUN 30, creatinine 1.85, glucose 181, lactate 3.3, calcium 8.3. Troponin less than 0.02, albumin 2.4. Procalcitonin 2.27. INR 2.29 . WBC 17.1, H and H 13.3 and 39.6, platelets 185, neutrophils 88%. UA shows negative nitrite, 3+ le ukocyte esterase, 10-20 rbc's, baz-sdxmcgky-ho-count wbc's, greater than 50 bacteria. Influenza scre en is negative. Chest x-ray personally reviewed shows suspected mild interstitial edema or infiltrat e. No peripheral mass or consolidation. Assessment: A 79-year-old male with, 1.Sepsis with shock. Patient is hypotensive with systolic blood pressure 70s over 30s, likely secon mari to pneumonia and urinary tract infection. We will start on sepsis bundle. Patient received 1 L normal saline bolus to date. He does have congestive heart failure, not able to tolerate significan t amount of fluids. Will continue to reassess. Will start on broad spectrum IV antibiotics. 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 We will start him on Zosyn, which will also cover the pneumonia. Blood cultures and urine cultures have been obtained. We will consul t Infectious Disease. The patient may end up requiring long-term IV antibiotics depending on his cul ture results. Has had history of multi-drug resistant organisms in the past. 2.Acute cystitis with hematuria. Patient has indwelling Hannah catheter, which was recently changed out a couple of days ago. Urine culture has been obtained. We will continue with Zosyn. 3.Pneumonia, left lower lobe. We will continue with IV antibiotics. Blood cultures have been obtai bruce. Supportive care. Supplemental oxygen as needed. 4.Atrial fibrillation with controlled ventricular rate. Patient is on Coumadin. INR is therapeutic at 2.29. 5.Congestive heart failure, last known ejection fraction is 71%, diastolic dysfunction. We will con tinue with fluid restriction. Monitor I's and O's. 6.Acute on chronic kidney disease stage 3. We will consult Nephrology. Avoid NSAIDs. 7.Hyponatremia. We will start on IV fluids, monitor. 8.History of pulmonary embolism and deep venous thrombosis, currently on Coumadin. 9.Spinal stenosis of the back with chronic back pain, midline without sciatica. 10.Gastroesophageal reflux disease. We will continue home medications. 11.Iron deficiency anemia. We will monitor H and H. 12.Multiple ventral hernias. 13.Chronic lymphedema. Patient is currently having significant amount of pain due to the lower extr emity swelling. We will place on air mattress, elevate lower extremities. Plan: Admit patient to ICU, place as inpatient. Length of stay greater than 2 midnights. LORY Voice ID: [id number]
[2019-12-13] MEDS: OXYBUTYNIN CHLORIDE 5 MG TAB PO SCH (21:08)
[2019-12-14] MEDS: PIPER/TAZO/NS 2.25gm 2.25 GM/50 ML BAG IVPB SCH ×3 (01:28→20:18)
[2019-12-14] MEDS: ACETAMINOPHEN 325 MG TABLET PO PRN ×3 (05:14→21:15)
[2019-12-14 05:21] LABS: Absolute Lymphocytes (CBC) 1.4 K/uL (0.7-4.9); Basophils % 0.3 % (0-1.3); Hematocrit 37.8 % (39.6-49.0); Lymphocytes % 13.2 % (15.3-44.8); MPV 7.7 fL (7.6-11.3)
[2019-12-14 05:27] VITALS: BMI 58.3
[2019-12-14 05:34] LABS: Potassium 4.3 mmol/L (3.5-5.1)
[2019-12-14] MEDS ORDERED: PNEUMOCOCCAL VACCINE 0.5 ML IMVAC ONE (09:00)
[2019-12-14] MEDS ORDERED: LORATADINE 10 MG TAB PO PRN ×2 (09:34→09:45)
[2019-12-14] MEDS: LACTOBACILLUS/ACIDOPHILUS TAB PO SCH (10:06)
[2019-12-14] MEDS: PHENOL 1.4% ORAL SPRAY 180ML MM PRN ×2 (10:06→21:12)
[2019-12-14] MEDS: OXYBUTYNIN CHLORIDE 5 MG TAB PO SCH ×2 (10:07→20:19)
[2019-12-14] MEDS: SERTRALINE HCL 50 MG TAB PO SCH (10:07)
[2019-12-14] MEDS: GABAPENTIN 300 MG CAP PO SCH ×3 (10:07→20:19)
[2019-12-14] MEDS: FERROUS SULFATE 325 MG TAB PO SCH (10:07)
[2019-12-14] MEDS: NA CHLORIDE 0.9% 1,000 ML IV SCH ×2 (10:08→22:49)
--- NOTE | 2019-12-14 13:42 | EKG ---
Test Date: 2019-12-13 Test Time: 15:30:59 Human Resources Communications Manager: DIANA MEASUREMENT RESULTS: Intervals: Rate: 81 [place]: QRSD: 126 QT: 396 QTc: 460 [place]: P: [place]: QRS: -11 T: 180 INTERPRETIVE STATEMENTS: Atrial fibrillation Right bundle branch block Abnormal ECG Compared to ECG 07/12/2019 15:27:50 Ventricular premature complex(es) no longer present Aberrant conduction of supraventricular beat(s) no longer present Electronically Signed On 12-14-19 13:38:16 [facility]ILDH[facility] by Corey Navarrete
--- NOTE | 2019-12-14 14:11 | PN ---
Date of Progress Note: 12/14/2019 Subjective: Patient is seen and examined, chart reviewed, and case discussed with RN. Patient is sandra aguilar. Blood pressure is improved, had to be started on Levophed yesterday, is being weaned d own. Patient is still reporting pain and swelling in his lower extremities. Medication List: Reviewed. Physical Examination: Vital Signs: Temperature 98.5, heart rate 113, blood pressure 110/70, respirations 16, O2 97% on bhumika m air. General: Awake, alert, oriented x3. Elderly male, morbidly obese, ill-appearing. CV: S1, S2. Irregularly irregular. Peripheral pulses weak. Respiratory: Diminished breath sounds at the bases. No wheezing or stridor. Gastrointestinal: Abdomen is soft, nontender, nondistended. Positive bowel sounds. Extremities: No clubbing or cyanosis. Patient has 3+ edema of the bilateral lower extremities. Skin: Patient has excoriation of the left lower extremity and has chronic venous stasis changes with weeping. Neurologic: Nonfocal. Laboratory Data: Sodium 133, potassium 4.3, chloride 99, CO2 of 27, BUN 27, creatinine 1.52, glucose 192, lactate came down to 2.2 and then back up to 2.6, calcium 8.4. WBC 10.4, H and H 12.7 and 37.8 , platelets 193, neutrophils 77%. Urine culture growing out 4+ gram-negative rods. Blood cultures a re pending at this time. Assessment And Plan: A 79-year-old male with: 1.Sepsis with shock. Patient currently on Levophed. We will continue to wean as tolerated. Contin ue IV fluids secondary to pneumonia and urinary tract infection. Urine culture growing out gram-nega tive rods. Blood cultures pending. 2.Acute cystitis with hematuria. Patient has indwelling Hannah catheter. No Urology available. Con sult ID. Gram-negative rods growing preliminarily. Patient has history of multidrug-resistant bacte ez. 3.Pneumonia, left lower lobe. We will continue with IV antibiotics. Blood cultures pending. 4.Atrial fibrillation, now with rapid ventricular rate in the 110s to 120s. Continue Coumadin. We will check INR. Continue rate control. 5.Congestive heart failure, diastolic dysfunction. Continue with fluid level monitoring. Currently on gentle IV fluid hydration due to shock. 6.Acute on chronic kidney disease stage 3. Appreciate Nephrology input. Avoid NSAIDs. Creatinine is slightly better today. 7.Hyponatremia. Sodium is improving. We will continue to monitor. Currently on normal saline. 8.History of pulmonary embolism and deep venous thrombosis, on Coumadin. 9.Spinal stenosis of the back with chronic back pain, midline, without sciatica. Continue pain cont rol. 10.Gastroesophageal reflux disease without esophagitis. Continue with home medications. 11.Iron-deficiency anemia. Monitor H and H, currently stable. 12.Multiple ventral hernias. 13.Chronic lymphedema. We will continue with wound care and air mattress. /MEGHANA Voice ID: [id number] Report ID: [id number]
--- NOTE | 2019-12-14 19:57 | P.CNS ---
Date of Consult: 12/14/19 Reason for Consult: KAYLAH Requesting Physician: Brittney Park Chief Complaint: Weakness History of Present Illness: 79 yo WM CKD, DM presented to the ER with moderate, progressive, generalized weakness with associated fever and chills. Found to have sepsis with shock in the setting of cystitis complicated by KAYLAH. History Of Present Illness: Patient is a 79-year-old male with past medical history of hypertension, coronary artery disease, neuropathy, chronic atrial fibrillation on Coumadin, history of DVT and PE, congestive heart failure, chronic indwelling catheter, spinal stenosis of the back, chronic back pain, morbid obesity, who comes in with several-day history of generalized weakness, fever, chills, cough and sputum production. Patient denies any ill contacts. No myalgias. Patient also had his chronic Hannah catheter changed a couple of days ago, however, continued to have bladder spasms and required urinary catheter change again. Due to his worsening symptoms, which were constant and moderate, came into the ER. Patient was found to be septic. Blood pressure was 80s systolic over 30s. He was given two 0.5 L boluses of normal saline, which improved his blood pressure to the 90s systolic. His workup revealed lactate of 3.3, procalcitonin was 2.27. His white count was 17,000, creatinine was 1.85. Patient was given antibiotics and then referred for admission. When seen in the ER, he was awake, alert, and oriented x3, in mild distress, complaining of pain in his leg as well. 15:55 This 79 yrs old Male presents to ER via EMS with complaints of hypotension. rn 15:55 Home nurse noticed low blood pressure, has frequent UTIs, reports generalized weakness rn and subjective fever. Has also had mild cough and congestion.. Onset: The symptoms/episode began/occurred today. Severity of symptoms: At their worst the symptoms were moderate in the emergency department the symptoms are unchanged. The patient has experienced similar episodes in the past. The patient has not recently seen a physician. Allergies Sulfa (Sulfonamide Antibiotics) Allergy (Verified 07/16/17 03:10) Hives Home medications list reviewed: Yes Home Medications: Ascorbic Acid [Vitamin C] 1,000 mg PO DAILY 12/13/19 Ferrous Sulfate [Iron] 325 mg PO DAILY 12/13/19 Gabapentin [Neurontin] 600 mg PO QID 12/13/19 L. Acidophilus/Dig Enz Cmb 5 [Probiotic-Digestive Enzymes] 1 each PO DAILY 12/13 Mv-Mins/Folic/Lycopene/Ginkgo [One Daily Men's 50+ Tablet] 1 each PO DAILY 12/13 Sertraline HCl 50 mg PO DAILY 12/13/19 Trazodone HCl [Desyrel] 100 mg PO BEDTIME 12/13/19 Warfarin Sodium [Coumadin] 3 mg PO DAILY 5 PM 12/13/19 - Past Medical/Surgical History Diabetic: No -: CHF -: HTN -: Lymphedema to the lower extremities -: Chronic indwelling urinary catheter -: Spinal stenosis of the back, chronic back pain -: History of DVT/PE, 1984, 1994 -: 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 -: GERD -: Iron deficiency anemia -: Large left-sided abdominal wall hernia -: Moderate-sized right sided abdominal wall hernia below the pannus. 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 He has no children. He is retired. 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 - Family History Father Medical History: Heart disease, Hypertension, GI disease Mother Medical History: Heart disease - Social History Smoking Status: Never smoker Alcohol use: No CD- Drugs: No Caffeine use: Yes Place of Residence: Home Review of Systems 10-point ROS is otherwise unremarkable General: Fever, Chills, Weakness, Malaise Respiratory: Shortness of Breath Cardiovascular: Edema Gastrointestinal: Nausea Integumentary: Lesions Neurological: Weakness Physical Examination Temp Pulse Resp BP Pulse Ox 97.7 F 95 H 16 97/68 97 12/14/19 16:15 12/14/19 19:15 12/14/19 19:15 12/14/19 19:15 12/14/19 19:15 General: In no apparent distress, Cooperative HEENT: Atraumatic Neck: Supple Respiratory: Diminished Cardiovascular: Regular rate/rhythm, Edema Gastrointestinal: Hypoactive, Non-distended, No guarding, Tenderness Musculoskeletal: No clubbing, No contractures Integumentary: No rashes, No cyanosis Neurological: Normal speech Urinary: Hannah catheter Blood work reviewed in the chart. Imagings Data: EXAM DESCRIPTION: RAD - Chest Single View - 12/13/2019 3:41 pm CLINICAL HISTORY: hypotension;Cough COMPARISON: Chest Single View dated 07/12/2019; Chest Single View dated 2018 TECHNIQUE: AP portable chest image was obtained 12/13/2019 3:41 pm . FINDINGS: Slightly underinflated with no peripheral consolidation or mass. Interstitial pattern is mildly prominent compared to the earlier study. Heart and vasculature are normal. No measurable pleural effusion and no pneumothorax. No acute bony abnormality seen. No acute aortic findings suspected. IMPRESSION: Suspected mild interstitial edema or infiltrate. No peripheral mass or consolidation. Conclusions/Impression: A/ KAYLAH in the setting of sepsis. Hyponatremia. Hypocalcemia. CKD III. DM II with CKD. Diastolic CHF, chronic. Moderate malnutrition. Sepsis with shock. Acute cystitis with hematuria. P/ Continue current POC and Medications. Continue gentle IVF. Monitor volume status. Continue abx. Follow up cultures. Pressor therapy to maintain perfusion. No NSAIDs. AM labs. Daily weight. Thank you kindly for the consultation. Critical Care: Yes
[2019-12-14] MEDS: WARFARIN SODIUM 3 MG TAB PO SCH (20:19)
[2019-12-15] MEDS: PIPER/TAZO/NS 2.25gm 2.25 GM/50 ML BAG IVPB SCH ×3 (01:42→16:31)
[2019-12-15 06:06] LABS: Protime INR 1.67
[2019-12-15 06:15] LABS: Absolute Lymphocytes (CBC) 1.3 K/uL (0.7-4.9); Basophils % 0.6 % (0-1.3); Hematocrit 37.6 % (39.6-49.0); Lymphocytes % 21.4 % (15.3-44.8); MPV 7.7 fL (7.6-11.3); RBC Red Blood Cell Count 3.98 M/uL (4.33-5.43)
[2019-12-15] MEDS: FERROUS SULFATE 325 MG TAB PO SCH (09:07)
[2019-12-15] MEDS: LACTOBACILLUS/ACIDOPHILUS TAB PO SCH (09:07)
[2019-12-15] MEDS: SERTRALINE HCL 50 MG TAB PO SCH (09:07)
[2019-12-15] MEDS: OXYBUTYNIN CHLORIDE 5 MG TAB PO SCH ×2 (09:08→20:15)
[2019-12-15] MEDS: GABAPENTIN 300 MG CAP PO SCH ×3 (09:08→20:15)
[2019-12-15] MEDS: HYDROCODONE/APAP 7.5/325 MG TAB PO PRN (09:08)
[2019-12-15 09:09] LABS: Albumin 2.3 g/dL (3.4-5.0); Bilirubin Total 0.5 mg/dL (0.2-1.0); Magnesium 1.9 mg/dL (1.8-2.4); Phosphorus 2.2 mg/dL (2.5-4.9); Potassium 4.1 mmol/L (3.5-5.1); Protein, Total 6.9 g/dL (6.4-8.2)
--- NOTE | 2019-12-15 10:46 | RAD REPORT ---
EXAM DESCRIPTION: RAD - Abdomen Single View - 12/15/2019 10:23 am CLINICAL HISTORY: pain from fall COMPARISON: [facility] Protocol dated 04/22/2018 FINDINGS: Multiple portable images the abdomen, pelvis and hip joints obtained. Bowel gas pattern is nonspecific. No free air or pneumatosis. IVC filter is seen. Patient has very ad vanced degenerative change in the lumbar spine. No definitive acute lumbar component. Moderate severi ty bilateral hip joint degenerative changes are present with joint space narrowing. No pelvic fractur e. No dislocation approx femur at abnormality. IMPRESSION: Advanced lumbar spine degenerative change. No acute component seen on AP projection. Bilateral hip joint degenerative change no acute finding. No pelvic fracture.
--- NOTE | 2019-12-15 10:49 | RAD REPORT ---
EXAM DESCRIPTION: RAD - Pelvis - 12/15/2019 10:23 am CLINICAL HISTORY: pain from fall COMPARISON: CT Pelvis Wo Cont dated 07/15/2017 TECHNIQUE: AP imaging of the pelvis was obtained. FINDINGS: Advanced lower lumbar degenerative changes are present only partially visualized. IVC filt er is in place. Mild to moderate SI joint and pubic symphysis degenerative changes are present. Patie nt has bilateral hip joint degenerative change. Joint space narrowing is present. No fracture or acut e proximal femur finding. IMPRESSION: Lumbar, pelvic and hip degenerative changes present. No fracture seen.
--- NOTE | 2019-12-15 10:50 | RAD REPORT ---
EXAM DESCRIPTION: RAD - Tib Fib Left - 12/15/2019 10:22 am CLINICAL HISTORY: Fall, left leg pain COMPARISON: None. FINDINGS: The patient severe knee degenerative change primarily medial. Mild ankle joint degenerativ e changes are present. No fracture or acute process seen. Prominent edema in the soft tissues of the lower extremity No foreign body seen. IMPRESSION: Advanced degenerative change at the knee joint with less severe ankle joint degenerative change. No fracture or acute bone finding.
--- NOTE | 2019-12-15 12:43 | CON ---
History Of Present Illness: This is a 79-year-old male, known to me from previous admissions. Patie nt has significant history of lymphedema involving his lower extremity and scrotal area. Patient als o has significant history of morbid obesity, hypertension, coronary artery disease, neuropathy, chron ic atrial fibrillation, on Coumadin, DVT, pulmonary embolism, congestive heart failure, chronic indwe lling catheter, spinal stenosis, chronic back pain, coming in with fever, chills, cough and sputum pr oduction, admitted for pneumonia and ulceration to the scrotal area and urinary tract infection. [place] prajapati is currently being treated with antibiotic including Zosyn and was on vasopressor, norepinephrin e. Patient is feeling much better today. Denies any headache, nausea, vomiting, chest pain, abdomin al pain, constipation, or diarrhea. Concern about pain in his knee and leg. Past Medical History: As per HPI. Social History: Nonsmoker, nondrinker. Bed-bound. Family History: Noncontributory. Medications: Zosyn. See MAR for other medications. Allergies: SULFA DRUGS. Review of Systems: 10-point review was performed. Physical Examination: General: This is a 79-year-old, very pleasant to talk to, lying in bed, not in any acute cardiopulmo nary distress. Vital Signs: Temperature 97.7, pulse 100, respirations 16, blood pressure 108/74. HEENT: Unremarkable. Neck: Supple. Lungs: Basal crackles. Heart: S1, S2. Regular. Abdomen: Soft, nontender. Bowel sounds present. Extremities: 4+ nonpitting edema involving scrotal area. Laboratory Data: WBC 6.3 down from 17.1, hemoglobin 12.6, platelets 177. Chemistry is sodium 138, p otassium 4.1, chloride 104, bicarb 28, BUN 21, creatinine 1.4, glucose is 178, total albumin is 2.3. Micro Data: Urine is growing E coli more than 100,000, sensitivity shows patient is sensitive to Aug mentin, cefazolin, quinolones, tetracyclines, and carbapenems. Chest x-ray done on December 13 shows mild interstitial edema or infiltrate. X-ray of tib-fib done earlier today shows advanced degenerative changes at the knee joint with less severe ankle joint dege neration. No acute fractures noted. Assessment And Plan: A 79-year-old male with multiple medical problems involving morbid obesity, pro tein calorie malnourishment and severe lymphedema, coming in with urinary tract infection, most likel y obstructive etiology causing him to have E coli, currently being treated with Zosyn. We will recom mend to treat him for 5 days. Can be switched to oral Augmentin on discharge, total course of 5-7 da ys. Local wound care as needed. Continue supportive care. We will follow the patient closely. Thank you Dr. Park for consult. NF/MODL Voice ID: [id number] Report ID: [id number]
[2019-12-15] MEDS ORDERED: NA CHLORIDE 0.9% 1,000 ML IV SCH (14:00)
[2019-12-15] MEDS: WARFARIN SODIUM 3 MG TAB PO SCH (16:33)
--- NOTE | 2019-12-15 17:24 | PN ---
Date of Progress Note: 12/15/2019 Subjective: Patient is seen and examined. Chart reviewed and case discussed with RN and Dr. Estrada. Medication List: Reviewed. Physical Examination: Vital Signs: Temperature 97.7, heart rate 106, blood pressure 107/75, respirations 14, O2 of 97% on room air. General: Awake, alert, oriented x3. Morbidly obese male, ill-appearing. CV: S1, S2. Sinus tachycardia. Peripheral pulses weak. Respiratory: Diminished breath sounds. No wheezing or stridor. Gastrointestinal: Abdomen is soft, nontender, nondistended. Positive bowel sounds. Extremities: No clubbing or cyanosis. Patient has diffuse anasarca of lower extremities and scrotal swelling. Neurologic: Nonfocal. Has generalized weakness of the lower extremities. Musculoskeletal: Tenderness to palpation in the left lower extremity. Laboratory Data: Sodium 138, potassium 4.1, chloride 104, CO2 of 28, BUN 21, creatinine 1.40, glucos e 178, calcium 8.5. Phosphorus 2.2, magnesium 1.9. INR is 1.67. WBC 6.3, H and H 12.6 and 37.6, pl atelets 177, neutrophils 61%. Cultures: Urine culture growing out E coli, sensitive to Zosyn. Blood cultures still pending. Woun d culture is also pending. Imaging Studies: Tib-fib x-ray, advanced degenerative change of the knee joint with less severe ankl e joint degenerative change. No fracture or acute bone finding. Pelvis x-ray; lumbar, pelvic, and h ip degenerative changes present. No fracture seen. Abdomen x-ray shows advanced lumbar spine degene rative change. No acute component seen on AP projection. Bilateral hip joint degenerative changes w ithout any acute finding. Assessment: A 79-year-old male with: 1.Sepsis with shock, now off Levophed. Blood pressure is improving. Continue IV fluids secondary t o pneumonia and urinary tract infection. Blood cultures are negative. Urine culture growing out Esc herichia coli. 2.Acute cystitis with hematuria secondary to Escherichia coli. Patient has indwelling Hannah cathete r, is multidrug resistant. We will continue with Zosyn. 3.Pneumonia, left lower lobe. We will continue with IV antibiotics. Cultures negative to date. 4.Atrial fibrillation, rate in the 100s. We will continue Coumadin, rate control. INR is subtherap eutic. May need to adjust Coumadin dose. 5.Congestive heart failure, diastolic dysfunction, chronic. Continue IV. Continue monitoring I's a nd O's, daily weights. 6.Acute on chronic kidney disease stage 3, stable. Avoid NSAIDs. Appreciate Nephrology input. Cre atinine is improved. 7.Hyponatremia. Sodium has been corrected. Continue to monitor. 8.History of pulmonary embolism and deep venous thrombosis, on Coumadin, currently subtherapeutic IN R. 9.Spinal stenosis of the back with chronic back pain, midline, without sciatica. Continue with pain control. 10.Gastroesophageal reflux disease without esophagitis. Continue home medications. 11.Iron-deficiency anemia. Monitor H and H, stable. 12.Multiple ventral hernias. 13.Chronic lymphedema. Patient has multiple wounds on the legs and scrotum. We will continue local wound care with alginate. 14.Left lower extremity pain. X-rays are negative for fracture. Continue with PT. Plan: Step down from ICU, likely discharge in next 24 to 48 hours depending on clinical response, on oral antibiotics. /MODL Voice ID: [id number] Report ID: [id number]
--- NOTE | 2019-12-15 21:53 | P.PN ---
Date of Service: 12/15/19 Vital Signs Temp Pulse Resp BP Pulse Ox 96.8 F 118 H 20 119/77 97 12/15/19 15:18 12/15/19 15:18 12/15/19 15:18 12/15/19 15:18 12/15/19 13:51 Medications Acetaminophen (Tylenol -Tablet) 325 mg PO Q4H PRN PRN Reason: TEMP > 100' F Stop: 01/12/20 18:18 Last Admin: 12/14/19 21:15 Dose: 325 mg Hydrocodone Bitart/Acetaminophen (Hewitt 7.5/325 Mg) 1 tab PO Q6H PRN PRN Reason: Pain scale 5-7 (Moderate) Stop: 01/14/20 08:26 Last Admin: 12/15/19 09:08 Dose: 1 tab Calcitriol (Rocaltrol) 0.5 mcg PO DAILY [facility] Stop: 01/15/20 09:01 Cholecalciferol (Vitamin D 5,000 Iu Cap) 5,000 unit PO DAILY [facility] Stop: 01/15/20 09:01 Ferrous Sulfate (Feosol) 325 mg PO DAILY [facility] Stop: 01/13/20 09:01 Last Admin: 12/15/19 09:07 Dose: 325 mg Gabapentin (Neurontin) 300 mg PO TID [facility] Stop: 01/13/20 09:01 Last Admin: 12/15/19 20:15 Dose: 300 mg Sodium Chloride (Sodium Chloride) 500 mls @ 999 mls/hr IV PRN PRN PRN Reason: Hypotension Stop: 01/12/20 18:18 Last Admin: 12/13/19 18:56 Dose: 500 mls Piperacillin/Tazobactam/Sod Chloride (Zosyn 2.25 Gm/50 Ml Ivpb) 2.25 gm in 50 mls @ 100 mls/hr IVPB Q8HR JELENA; Protocol Stop: 01/12/20 19:01 Last Admin: 12/15/19 16:31 Dose: 50 mls Norepinephrine Bitartrate 4 mg (/ Dextrose) 254 mls @ 0 mls/hr IV PRN PRN; Protocol PRN Reason: Hemodynamic Parameters Stop: 01/12/20 18:54 Last Admin: 12/13/19 19:53 Dose: 254 mls Sodium Chloride (Ns 1000 Ml Ivbag) 1,000 mls @ 50 mls/hr IV .Q20H [facility] Stop: 01/14/20 14:01 Last Admin: 12/15/19 13:18 Dose: 1,000 mls Lactobacillus Acidoph/Bulgaricus (Lactinex) 1 tab PO DAILY [facility] Stop: 01/13/20 09:01 Last Admin: 12/15/19 09:07 Dose: 1 tab Loratadine (Claritin) 10 mg PO DAILY PRN PRN Reason: ALLERGIES Stop: 01/13/20 09:35 Last Admin: 12/14/19 10:07 Dose: 10 mg Ondansetron HCl (Zofran) 4 mg IV Q4H PRN PRN Reason: NAUSEA / VOMITING Stop: 01/12/20 18:18 Oxybutynin Chloride (Ditropan) 5 mg PO BID [facility] Stop: 01/12/20 21:01 Last Admin: 12/15/19 20:15 Dose: 5 mg Phenol (Phenaseptic Lenore) 2 appl MM Q4H PRN PRN Reason: SORE THROAT Stop: 01/13/20 09:35 Last Admin: 12/14/19 21:12 Dose: 2 appl Sertraline HCl (Zoloft) 50 mg PO DAILY [facility] Stop: 01/13/20 09:01 Last Admin: 12/15/19 09:07 Dose: 50 mg Warfarin Sodium (Coumadin) 3 mg PO DAILY 5 PM [facility] Stop: 01/13/20 17:01 Last Admin: 12/15/19 16:33 Dose: 3 mg Microbiology Results 12/13/19 15:30 Catheterized Urine Conesus Count - Preliminary >100,000 CFU/ML. 12/13/19 15:30 Catheterized Urine - Preliminary Escherichia Coli 12/13/19 15:25 Blood - Blood Aerobic Blood Culture - Preliminary No growth in 24 hours. 12/13/19 15:25 Blood - Blood Anaerobic Blood Culture - Preliminary No growth in 24 hours. 12/13/19 15:10 Blood - Blood Aerobic Blood Culture - Preliminary No growth in 24 hours. 12/13/19 15:10 Blood - Blood Anaerobic Blood Culture - Preliminary No growth in 24 hours. 12/13/19 15:10 Nasopharnyx Influenza Type A Antigen Screen - Final 12/13/19 15:10 Nasopharnyx Influenza Type B Antigen Screen - Final Assessment/ Plan: Nephrology Feeling better. CPS stable without CP or SOB. +FINK No acute events overnight. Vitals, medications, blood work and imaging reviewed in the chart. General: In no apparent distress, Cooperative HEENT: Atraumatic Neck: Supple Respiratory: Diminished Cardiovascular: Regular rate/rhythm, Edema Gastrointestinal: Hypoactive, Non-distended, No guarding, Tenderness Musculoskeletal: No clubbing, No contractures Integumentary: No rashes, No cyanosis Neurological: Normal speech Urinary: Sims catheter Blood work reviewed in the chart. Imagings Data: EXAM DESCRIPTION: RAD - Chest Single View - 12/13/2019 3:41 pm CLINICAL HISTORY: hypotension;Cough COMPARISON: Chest Single View dated 07/12/2019; Chest Single View dated 2018 TECHNIQUE: AP portable chest image was obtained 12/13/2019 3:41 pm . FINDINGS: Slightly underinflated with no peripheral consolidation or mass. Interstitial pattern is mildly prominent compared to the earlier study. Heart and vasculature are normal. No measurable pleural effusion and no pneumothorax. No acute bony abnormality seen. No acute aortic findings suspected. IMPRESSION: Suspected mild interstitial edema or infiltrate. No peripheral mass or consolidation. Conclusions/Impression: A/ KAYLAH in the setting of sepsis. Hyponatremia. Hypocalcemia. CKD III. DM II with CKD. Diastolic CHF, chronic. Moderate malnutrition. Sepsis with shock. Acute cystitis with hematuria. Chronic sims. P/ Continue current POC and Medications. Stop IVF. Encourage oral intake. Continue abx. Follow up cultures. Start Vitamin D. No NSAIDs. AM labs. Daily weight.
[2019-12-16] MEDS: PIPER/TAZO/NS 2.25gm 2.25 GM/50 ML BAG IVPB SCH ×2 (00:43→08:08)
[2019-12-16] MEDS: HYDROCODONE/APAP 7.5/325 MG TAB PO PRN (04:05)
[2019-12-16 06:34] LABS: Absolute Lymphocytes (CBC) 1.6 K/uL (0.7-4.9); Basophils % 0.5 % (0-1.3); Hematocrit 37.1 % (39.6-49.0); Lymphocytes % 27.1 % (15.3-44.8); MPV 7.6 fL (7.6-11.3); Protime INR 1.67; RBC Red Blood Cell Count 3.89 M/uL (4.33-5.43)
[2019-12-16 06:48] LABS: Phosphorus 2.5 mg/dL (2.5-4.9); Potassium 4.2 mmol/L (3.5-5.1); Uric Acid 4.6 mg/dL (3.5-7.2)
[2019-12-16] MEDS: ACETAMINOPHEN 325 MG TABLET PO PRN (08:07)
[2019-12-16] MEDS: GABAPENTIN 300 MG CAP PO SCH (08:08)
[2019-12-16] MEDS: SERTRALINE HCL 50 MG TAB PO SCH (08:08)
[2019-12-16] MEDS: OXYBUTYNIN CHLORIDE 5 MG TAB PO SCH (08:09)
[2019-12-16] MEDS: FERROUS SULFATE 325 MG TAB PO SCH (08:09)
[2019-12-16] MEDS: LACTOBACILLUS/ACIDOPHILUS TAB PO SCH (08:09)
[2019-12-16] MEDS ORDERED: VITAMIN D 5,000 UNIT CAP PO SCH (09:00)
[2019-12-16] MEDS ORDERED: CALCITROL 0.25 MCG CAP PO SCH (09:00)
[2019-12-16 11:22] VITALS: O2SAT 97
[2019-12-16 12:42] VITALS: BP 112/70; TEMP 97.6
--- NOTE | 2019-12-16 14:37 | DS ---
Date of Discharge: 12/16/2019 Consultants: Dr. Arvizu with Nephrology, Dr. Estrada with Infectious Disease. Admitting Diagnoses: 1.Sepsis with shock. 2.Acute cystitis with hematuria. 3.Pneumonia, left lower lobe. 4.Atrial fibrillation. 5.Congestive heart failure, diastolic dysfunction, chronic. 6.Acute on chronic kidney disease stage 3. 7.Hyponatremia. 8.History of pulmonary embolism and deep venous thrombosis, on Coumadin. 9.Spinal stenosis of the back with chronic back pain, midline, without sciatica. 10.Gastroesophageal reflux disease without esophagitis. 11.Iron deficiency anemia, stable. 12.Multiple ventral hernias. 13.Chronic lymphedema. Discharge Diagnoses: 1.Sepsis with shock resolved off pressors secondary to urinary tract infection. 2.Acute cystitis with hematuria secondary to Escherichia coli. 3.Pneumonia, left lower lobe, improved. 4.Atrial fibrillation. Continue Coumadin and rate control. 5.Congestive heart failure, diastolic dysfunction, chronic. 6.Hyponatremia, corrected. 7.History of pulmonary embolism and deep vein thrombosis on Coumadin subtherapeutic INR. 8.Spinal stenosis of the lumbar spine with chronic back pain, midline, without sciatica. 9.Gastroesophageal reflux disease without esophagitis. 10.Iron deficiency anemia, stable. 11.Multiple ventral hernias. 12.Chronic lymphedema with lower extremity pain. Hospital Course: Patient is a 79-year-old male with chronic indwelling Hannah catheter, history of hy pertension, heart disease, neuropathy, atrial fibrillation, history of DVT and PE, congestive heart f ailure, morbid obesity with chronic lymphedema, who is nonambulatory, comes in with weakness, fevers, chills, was found to be septic secondary to UTI. Patient was hypotensive and was in septic shock, r equired pressors. White blood cell count was 17,000, procalcitonin was elevated as was lactate. Kid leonard function was also elevated at 1.85 with acute organ dysfunction. Patient was given gentle IV flu id bolus due to his history of CHF and chronic lymphedema with third spacing to avoid respiratory dis tress and failure. Patient was admitted to the ICU. Patient responded well to treatment. His blood pressure improved. His white blood cell count normalized. His source of infection was multifactori al including UTI and pneumonia. Patient was found to have E coli growing out of his urine culture, w carlito was multi-drug resistant, however, sensitive to Augmentin and Zosyn. Patient responded well. Hilary crump was seen by Dr. Estrada of Infectious Disease and was recommended to complete course of oral antibio tics for 5 to 7 days. Patient was seen by Dr. Arvizu, Nephrology for his kidney dysfunction. His kidney function improved with hydration. Patient did complain of pain in his left lower extremity, especially due to his lymphedema and stated that he had sustained an injury when he was being transferred out of the house back in December of l ast year as he was unconscious to his left leg. X-rays were done, did not show any acute fractures. Patient normally is nonambulatory, does work with PT and OT at home mainly with just simple passive movement exercises. Overall patient did well, sepsis resolved. He did not have any further signs or symptoms of sepsis. Blood pressure was stable. He was afebrile. He was then cleared for discharge and was sent home in a stable condition with home health. Activity: Fall precautions. Medications: As per medication reconciliation list. Followup: Follow up with primary care physician in 2 to 3 days. Follow up with manager property, Dr. Clayton cook in 2 weeks. Follow up with Infectious Disease, Dr. Estrada in 2 weeks. Follow up with neurolog ist in [place] as scheduled. Diet: Low-sodium, free fluid restricted diet. Physical Examination: General: Awake, alert, oriented x3. Elderly male, morbidly obese, BMI greater than 50. CV: S1, S2. Irregularly irregular. Respiratory: Diminished breath sounds at the bases. No wheezing. Gastrointestinal: Abdomen is soft, nontender, nondistended. Positive bowel sounds. Ventral hernia is present. Extremities: No clubbing or cyanosis. Patient has diffuse lymphedema and anasarca of the lower extr emities with chronic venous stasis changes. Neurologic: Nonfocal. Total time spent discharging patient was 45 minutes. SA/MODL Voice ID: [id number] Report ID: [id number]
== END 2019-12-16 13:30 | disposition home health service (06) | DRG 871 ==
LOC: ER 14:37 → ERHOLD 16:53 → 3RD-ICU 18:16 → 4TH 12-15 14:00
PROVIDERS: ADMIT Family Medicine; ATTEND Family Medicine
DX: A41.9 Sepsis, unspecified organism (principal); R65.21 Severe sepsis with septic shock; J18.9 Pneumonia, unspecified organism; N30.01 Acute cystitis with hematuria; N17.9 Acute kidney failure, unspecified; I13.0 Hypertensive heart and chronic kidney disease with heart failure and stage 1 through stage 4 chronic kidney disease, or unspecified chronic kidney disease; I50.32 Chronic diastolic (congestive) heart failure; E44.0 Moderate protein-calorie malnutrition; Z68.43 Body mass index [BMI] 50.0-59.9, adult; E87.1 Hypo-osmolality and hyponatremia; I48.20 Chronic atrial fibrillation, unspecified; B96.20 Unspecified Escherichia coli [E. coli] as the cause of diseases classified elsewhere; Z79.01 Long term (current) use of anticoagulants; N18.3 Chronic kidney disease, stage 3 (moderate); E83.51 Hypocalcemia; I25.10 Atherosclerotic heart disease of native coronary artery without angina pectoris; M48.00 Spinal stenosis, site unspecified; K21.9 Gastro-esophageal reflux disease without esophagitis; D50.9 Iron deficiency anemia, unspecified; K43.9 Ventral hernia without obstruction or gangrene; I89.0 Lymphedema, not elsewhere classified; E66.01 Morbid (severe) obesity due to excess calories; M79.605 Pain in left leg; Z86.711 Personal history of pulmonary embolism; Z88.2 Allergy status to sulfonamides
CPT/HCPCS: 36415; 71045; 72170; 74018; 80048; 80053; 80076; 81003; 81015; 82805; 83605; 83690; 83735; 84100; 84145; 84484; 84550; 85025; 85610; 87040; 87070; 87075; 87077; 87086; 87088; 87186; 87205; 87804; 93005; 94760; 96361; 96365; 96375; 99285; J0456; J0696; J7030; J7040; J7060

== ENCOUNTER 2020-02-26 10:42 | Emergency (ER) | payer OTHER ==
--- OUTSIDE RECORDS SUMMARY | 2020-02-26 10:48 | XMS REPORT ---
:1940 Author Organization [facility] Address [address] [place] [address] Care Team Providers Name Role Phone TEN [...] (BEAKER) (test 171 mg/dL 70-110 TESTED AT [address] gtre=1912) [facility] [address] POCT-GLUCOSE [id number] 12:25:00 Test Item Value Reference Range Comments POC-GLUCOSE METER (BEAKER) 242 mg/dL 70-110 TESTED AT [address] (test yvad=4143) [facility] [address] POCT-GLUCOSE [id number] 09:09:00 Test Item Value Reference Range Comments POC-GLUCOSE METER (BEAKER) 181 mg/dL 70-110 TESTED AT [address] (test uhkz=9527) [facility] [address] [id number] 05:31:00 Test Item Value Reference Range Comments MAGNESIUM (BEAKER) (test cras=834) 1.7 mg/dL 1.6-2.6 BASIC METABOLIC [id number] 05:31:00 Test Item Value Reference Range Comments SODIUM (BEAKER) (test 137 meq/L 136-145 qtlw=309) POTASSIUM (BEAKER) (test 4.2 meq/L 3.5-5.1 jsyl=958) CHLORIDE (BEAKER) (test 100 meq/L 98-107 kkjl=633) CO2 (BEAKER) (test 27 meq/L 22-29 xgci=685) BLOOD UREA NITROGEN 49 mg/dL 7-21 (BEAKER) (test sfci=589) CREATININE (BEAKER) (test 1.73 mg/dL 0.57-1.25 stlq=605) GLUCOSE RANDOM (BEAKER) 192 mg/dL 70-105 (test trkx=414) CALCIUM (BEAKER) (test 9.7 mg/dL 8.4-10.2 deav=474) EGFR (BEAKER) (test 39 mL/min/1.73 sq m ESTIMATED GFR IS NOT ptjt=2636) ACCURATE CREATININE CLEARANCE IN PREDICTING GLOMERULAR FILTRATION RATE. ESTIMATED GFR IS NOT APPLICABLE FOR DIALYSIS PATIENTS. PROTHROMBIN [id number] 05:25:00 Test Item Value Reference Range Comments PROTIME (BEAKER) (test lvgl=265) 32.7 seconds 11.7-14.7 INR (BEAKER) (test rngn=237) 3.2 <=5.9 RECOMMENDED COUMADIN/WARFARIN INR THERAPY RANGESSTANDARD DOSE: 2.0 - 3.0 Includes: PROPHYLAXIS forvenous thrombosis, systemic embolization; TREATMENT for venous thrombosis and/or pulmonary embolus.HIGH RISK: Target INR is 2.5-3.5 for patients with mechanical heart valves.While on warfarin.CBC W/PLT COUNT &amp ; AUTO [id number] 05:13:00 Test Item Value Reference Range Comments WHITE BLOOD CELL COUNT (BEAKER) (test nrzx=271) 6.8 K/ L 3.5-10.5 RED BLOOD CELL COUNT (BEAKER) (test rcoq=731) 3.42 M/ L 4.63-6.08 HEMOGLOBIN (BEAKER) (test vvgy=204) 10.7 GM/DL 13.7-17.5 HEMATOCRIT (BEAKER) (test pljj=540) 34.5 % 40.1-51.0 MEAN CORPUSCULAR VOLUME (BEAKER) (test ehsz=247) 100.9 fL 79.0-92.2 MEAN CORPUSCULAR HEMOGLOBIN (BEAKER) (test 31.3 pg 25.7-32.2 zafu=659) MEAN CORPUSCULAR HEMOGLOBIN CONC (BEAKER) (test 31.0 GM/DL 32.3-36.5 xnlb=697) RED CELL DISTRIBUTION WIDTH (BEAKER) (test 14.0 % 11.6-14.4 bzmq=647) PLATELET COUNT (BEAKER) (test lzqc=413) 196 K/CU MM 150-450 MEAN PLATELET VOLUME (BEAKER) (test mkpm=743) 10.5 fL 9.4-12.4 NUCLEATED RED BLOOD CELLS (BEAKER) (test 0 /100 WBC 0-0 rhxy=207) NEUTROPHILS RELATIVE PERCENT (BEAKER) (test 56 % rooz=187) LYMPHOCYTES RELATIVE PERCENT (BEAKER) (test 24 % gmvo=474) MONOCYTES RELATIVE PERCENT (BEAKER) (test 14 % ekcd=483) EOSINOPHILS RELATIVE PERCENT (BEAKER) (test 4 % bsak=709) BASOPHILS RELATIVE PERCENT (BEAKER) (test 1 % bpca=424) NEUTROPHILS ABSOLUTE COUNT (BEAKER) (test 3.81 K/ L 1.78-5.38 owsg=816) LYMPHOCYTES ABSOLUTE COUNT (BEAKER) (test 1.64 K/ L 1.32-3.57 hqpe=124) MONOCYTES ABSOLUTE COUNT (BEAKER) (test 0.98 K/ L 0.30-0.82 ftzf=849) EOSINOPHILS ABSOLUTE COUNT (BEAKER) (test 0.29 K/ L 0.04-0.54 uqnd=479) BASOPHILS ABSOLUTE COUNT (BEAKER) (test 0.05 K/ L 0.01-0.08 zxhv=120) IMMATURE GRANULOCYTES-RELATIVE PERCENT (BEAKER) 1 % 0-1 (test tybv=9689) POCT-GLUCOSE [id number] 22:51:00 Test Item Value Reference Range Comments POC-GLUCOSE METER (BEAKER) 227 mg/dL 70-110 TESTED AT [address] (test qdzu=4004) [place] [address] POCT-GLUCOSE [id number] 17:24:00 Test Item Value Reference Range Comments POC-GLUCOSE METER (BEAKER) 236 mg/dL 70-110 TESTED AT [address] (test kxuv=9043) [place] [id number] URINALYSIS W/ [id number] 14:49:00 Test Item Value Reference Range Comments COLOR (BEAKER) (test cnff=806) Light Yellow CLARITY (BEAKER) (test wies=978) Hazy SPECIFIC GRAVITY UA (BEAKER) (test splv=756) 1.010 1.001-1.035 PH UA (BEAKER) (test fhaa=438) 8.0 5.0-8.0 PROTEIN UA (BEAKER) (test dslb=231) 10 mg/dL Negative GLUCOSE UA (BEAKER) (test qfrg=390) Negative Negative KETONES UA (BEAKER) (test mxor=790) Negative Negative BILIRUBIN UA (BEAKER) (test lixf=851) Negative Negative BLOOD UA (BEAKER) (test jrfx=807) Small Negative NITRITE UA (BEAKER) (test jxwn=129) Negative Negative LEUKOCYTE ESTERASE UA (BEAKER) (test oqqj=463) Large Negative UROBILINOGEN UA (BEAKER) (test avsa=868) 0.2 mg/dL 0.2-1.0 RBC UA (BEAKER) (test xlxp=698) 0 /HPF WBC UA (BEAKER) (test gomp=536) 64 /HPF BACTERIA (BEAKER) (test yrog=966) Moderate TRIPLE PHOSPHATE CRYSTALS (BEAKER) (test Few jvev=3204) YEAST (BEAKER) (test bxbb=8572) Few SOURCE(BEAKER) (test crgr=3350) Urine, Hannah POCT-GLUCOSE [id number] 13:02:00 Test Item Value Reference Range Comments POC-GLUCOSE METER (BEAKER) 180 mg/dL 70-110 TESTED AT [address] (test wgxs=0089) [facility] [address] POCT-GLUCOSE [id number] 09:36:00 Test Item Value Reference Range Comments POC-GLUCOSE METER (BEAKER) 200 mg/dL 70-110 TESTED AT [address] (test nuck=7249) [facility] [address] PROTHROMBIN TIME/[id number] 07:20:00 Test Item Value Reference Range Comments PROTIME (BEAKER) (test uwhh=505) 29.2 seconds 11.7-14.7 INR (BEAKER) (test tvge=055) 2.8 <=5.9 RECOMMENDED COUMADIN/WARFARIN INR THERAPY RANGESSTANDARD DOSE: 2.0 - 3.0 Includes: PROPHYLAXIS forvenous thrombosis, systemic embolization; TREATMENT for venous thrombosis and/or pulmonary embolus.HIGH RISK: Target INR is 2.5-3.5 for patients with mechanical heart valves.While on warfarin.[id number] 07:16:00 Test Item Value Reference Range Comments MAGNESIUM (BEAKER) (test pmlr=799) 1.8 mg/dL 1.6-2.6 BASIC METABOLIC [id number] 07:16:00 Test Item Value Reference Range Comments SODIUM (BEAKER) (test 138 meq/L 136-145 jweb=134) POTASSIUM (BEAKER) (test 4.0 meq/L 3.5-5.1 crva=977) CHLORIDE (BEAKER) (test 100 meq/L 98-107 kwsp=409) CO2 (BEAKER) (test 28 meq/L 22-29 xyad=719) BLOOD UREA NITROGEN 46 mg/dL 7-21 (BEAKER) (test sapc=503) CREATININE (BEAKER) (test 1.88 mg/dL 0.57-1.25 mjhc=878) GLUCOSE RANDOM (BEAKER) 177 mg/dL 70-105 (test ezly=152) CALCIUM (BEAKER) (test 9.5 mg/dL 8.4-10.2 jzbd=974) EGFR (BEAKER) (test 35 mL/min/1.73 sq m ESTIMATED GFR IS NOT hpge=4119) ACCURATE CREATININE CLEARANCE IN PREDICTING GLOMERULAR FILTRATION RATE. ESTIMATED GFR IS NOT APPLICABLE FOR DIALYSIS PATIENTS. CBC W/PLT COUNT & AUTO [id number] 07:07:00 Test Item Value Reference Range Comments WHITE BLOOD CELL COUNT (BEAKER) (test rudg=357) 6.8 K/ L 3.5-10.5 RED BLOOD CELL COUNT (BEAKER) (test vszq=956) 3.48 M/ L 4.63-6.08 HEMOGLOBIN (BEAKER) (test hjbb=618) 11.1 GM/DL 13.7-17.5 HEMATOCRIT (BEAKER) (test kcsz=544) 35.0 % 40.1-51.0 MEAN CORPUSCULAR VOLUME (BEAKER) (test voot=088) 100.6 fL 79.0-92.2 MEAN CORPUSCULAR HEMOGLOBIN (BEAKER) (test 31.9 pg 25.7-32.2 osyu=107) MEAN CORPUSCULAR HEMOGLOBIN CONC (BEAKER) (test 31.7 GM/DL 32.3-36.5 ejdb=457) RED CELL DISTRIBUTION WIDTH (BEAKER) (test 14.3 % 11.6-14.4 ekel=490) PLATELET COUNT (BEAKER) (test biyi=800) 205 K/CU MM 150-450 MEAN PLATELET VOLUME (BEAKER) (test zrgh=413) 10.3 fL 9.4-12.4 NUCLEATED RED BLOOD CELLS (BEAKER) (test 0 /100 WBC 0-0 zekz=562) NEUTROPHILS RELATIVE PERCENT (BEAKER) (test 57 % hjtw=225) LYMPHOCYTES RELATIVE PERCENT (BEAKER) (test 24 % mmuc=906) MONOCYTES RELATIVE PERCENT (BEAKER) (test 15 % fsjs=363) EOSINOPHILS RELATIVE PERCENT (BEAKER) (test 3 % tozi=319) BASOPHILS RELATIVE PERCENT (BEAKER) (test 1 % wico=987) NEUTROPHILS ABSOLUTE COUNT (BEAKER) (test 3.86 K/ L 1.78-5.38 oocz=675) LYMPHOCYTES ABSOLUTE COUNT (BEAKER) (test 1.61 K/ L 1.32-3.57 upmm=885) MONOCYTES ABSOLUTE COUNT (BEAKER) (test 1.00 K/ L 0.30-0.82 dkqw=523) EOSINOPHILS ABSOLUTE COUNT (BEAKER) (test 0.23 K/ L 0.04-0.54 miqi=643) BASOPHILS ABSOLUTE COUNT (BEAKER) (test 0.05 K/ L 0.01-0.08 cmbv=462) IMMATURE GRANULOCYTES-RELATIVE PERCENT (BEAKER) 0 % 0-1 (test fzey=3071) POCT-GLUCOSE [id number] 22:06:00 Test Item Value Reference Range Comments POC-GLUCOSE METER (BEAKER) 222 mg/dL 70-110 TESTED AT [address] (test mgew=6010) [place] [address] POCT-GLUCOSE [id number] 18:33:00 Test Item Value Reference Range Comments POC-GLUCOSE METER (BEAKER) 227 mg/dL 70-110 TESTED AT [address] (test pyju=9290) [place] [address] URINALYSIS W/ REFLEX URINE [id number] 14:23:00 Test Item Value Reference Range Comments COLOR (BEAKER) (test fwuv=454) Yellow CLARITY (BEAKER) (test okwa=644) Cloudy SPECIFIC GRAVITY UA (BEAKER) (test xoyi=276) 1.012 1.001-1.035 PH UA (BEAKER) (test xfqu=610) 8.5 5.0-8.0 PROTEIN UA (BEAKER) (test iwxj=019) 100 mg/dL Negative GLUCOSE UA (BEAKER) (test ginq=421) Negative Negative KETONES UA (BEAKER) (test fehy=992) Negative Negative BILIRUBIN UA (BEAKER) (test cddc=083) Negative Negative BLOOD UA (BEAKER) (test vgoo=349) Trace Negative NITRITE UA (BEAKER) (test awdo=992) Negative Negative LEUKOCYTE ESTERASE UA (BEAKER) (test ywvy=820) Large Negative UROBILINOGEN UA (BEAKER) (test tapg=702) 0.2 mg/dL 0.2-1.0 RBC UA (BEAKER) (test tymk=153) 28 /HPF WBC UA (BEAKER) (test hqrs=328) 112 /HPF BACTERIA (BEAKER) (test fluz=907) Many MUCUS (BEAKER) (test ochg=5027) Few TRIPLE PHOSPHATE CRYSTALS (BEAKER) (test Few ubrp=6944) YEAST (BEAKER) (test iyyw=8476) Many SOURCE(BEAKER) (test tyvw=5268) POCT-GLUCOSE [id number] 12:34:00 Test Item Value Reference Range Comments POC-GLUCOSE METER (BEAKER) 273 mg/dL 70-110 TESTED AT [address] (test xjuo=9851) [place] [address] POCT-GLUCOSE [id number] 09:09:00 Test Item Value Reference Range Comments POC-GLUCOSE METER (BEAKER) 186 mg/dL 70-110 TESTED AT [address] (test pkyj=6082) [place] [address] [id number] 07:43:00 Test Item Value Reference Range Comments MAGNESIUM (BEAKER) (test xysj=815) 1.6 mg/dL 1.6-2.6 BASIC METABOLIC [id number] 07:43:00 Test Item Value Reference Range Comments SODIUM (BEAKER) (test 138 meq/L 136-145 ysoq=988) POTASSIUM (BEAKER) (test 3.7 meq/L 3.5-5.1 xpvb=041) CHLORIDE (BEAKER) (test 98 meq/L 98-107 szrp=070) CO2 (BEAKER) (test 30 meq/L 22-29 njqf=031) BLOOD UREA NITROGEN 45 mg/dL 7-21 (BEAKER) (test bsaz=235) CREATININE (BEAKER) (test 1.89 mg/dL 0.57-1.25 gtdx=198) GLUCOSE RANDOM (BEAKER) 167 mg/dL 70-105 (test qldt=094) CALCIUM (BEAKER) (test 9.4 mg/dL 8.4-10.2 fxwf=771) EGFR (BEAKER) (test 35 mL/min/1.73 sq m ESTIMATED GFR IS NOT mbsd=5621) ACCURATE CREATININE CLEARANCE IN PREDICTING GLOMERULAR FILTRATION RATE. ESTIMATED GFR IS NOT APPLICABLE FOR DIALYSIS PATIENTS. [id number] 07:30:00 Test Item Value Reference Range Comments PARTIAL THROMBOPLASTIN TIME (BEAKER) (test 95.4 seconds 22.5-36.0 fxam=211) While on warfarin.PROTHROMBIN TIME/[id number] 07:28:00 Test Item Value Reference Range Comments PROTIME (BEAKER) (test mdeu=373) 25.1 seconds 11.7-14.7 INR (BEAKER) (test twkw=332) 2.3 <=5.9 RECOMMENDED COUMADIN/WARFARIN INR THERAPY RANGESSTANDARD DOSE: 2.0 - 3.0 Includes: PROPHYLAXIS forvenous thrombosis, systemic embolization; TREATMENT for venous thrombosis and/or pulmonary embolus.HIGH RISK: Target INR is 2.5-3.5 for patients with mechanical heart valves.While on warfarin.[id number] 23:08 :00 Test Item Value Reference Range Comments PARTIAL THROMBOPLASTIN TIME (BEAKER) (test 66.2 seconds 22.5-36.0 irbi=451) POCT-GLUCOSE [id number] 22:14:00 Test Item Value Reference Range Comments POC-GLUCOSE METER (BEAKER) 224 mg/dL 70-110 TESTED AT [address] (test iqmo=3343) [place] [address] [id number] 19:24:00 Test Item Value Reference Range Comments PARTIAL THROMBOPLASTIN TIME (BEAKER) (test 121.7 seconds 22.5-36.0 xpxr=614) POCT-GLUCOSE [id number] 17:07:00 Test Item Value Reference Range Comments POC-GLUCOSE METER (BEAKER) 191 mg/dL 70-110 TESTED AT [address] (test kxjz=0267) [place] [address] [id number] 12:57:00 Test Item Value Reference Range Comments PARTIAL THROMBOPLASTIN TIME (BEAKER) (test 95.5 seconds 22.5-36.0 urbe=861) POCT-GLUCOSE [id number] 12:11:00 Test Item Value Reference Range Comments POC-GLUCOSE METER (BEAKER) 217 mg/dL 70-110 TESTED AT [facility] [address] [facility] (test csfu=3341) [facility] [address] POCT-GLUCOSE [id number] 08:51:00 Test Item Value Reference Range Comments POC-GLUCOSE METER (BEAKER) 185 mg/dL 70-110 TESTED AT [place] [id number] [facility] (test fdqa=8318) [facility] [address] [id number] 05:36:00 Test Item Value Reference Range Comments PARTIAL THROMBOPLASTIN TIME (BEAKER) (test 117.7 seconds 22.5-36.0 rcks=132) While on warfarin.[id number] 05:06:00 Test Item Value Reference Range Comments MAGNESIUM (BEAKER) (test ijwv=399) 1.6 mg/dL 1.6-2.6 BASIC METABOLIC [id number] 05:06:00 Test Item Value Reference Range Comments SODIUM (BEAKER) (test 140 meq/L 136-145 dwlz=463) POTASSIUM (BEAKER) (test 3.6 meq/L 3.5-5.1 jnmj=214) CHLORIDE (BEAKER) (test 99 meq/L 98-107 yyvf=193) CO2 (BEAKER) (test 30 meq/L 22-29 xlki=671) BLOOD UREA NITROGEN 48 mg/dL 7-21 (BEAKER) (test ufgl=835) CREATININE (BEAKER) (test 2.09 mg/dL 0.57-1.25 xvhc=364) GLUCOSE RANDOM (BEAKER) 179 mg/dL 70-105 (test zpqd=589) CALCIUM (BEAKER) (test 9.5 mg/dL 8.4-10.2 caur=206) EGFR (BEAKER) (test 31 mL/min/1.73 sq m ESTIMATED GFR IS NOT dkmo=7472) ACCURATE CREATININE CLEARANCE IN PREDICTING GLOMERULAR FILTRATION RATE. ESTIMATED GFR IS NOT APPLICABLE FOR DIALYSIS PATIENTS. PROTHROMBIN [id number] 05:01:00 Test Item Value Reference Range Comments PROTIME (BEAKER) (test fiuh=692) 21.5 seconds 11.7-14.7 INR (BEAKER) (test kovu=094) 1.8 <=5.9 RECOMMENDED COUMADIN/WARFARIN INR THERAPY RANGESSTANDARD DOSE: 2.0 - 3.0 Includes: PROPHYLAXIS forvenous thrombosis, systemic embolization; TREATMENT for venous thrombosis and/or pulmonary embolus.HIGH RISK: Target INR is 2.5-3.5 for patients with mechanical heart valves.While on warfarin.POCT-GLUCOSE [id number] 21:46:00 Test Item Value Reference Range Comments POC-GLUCOSE METER (BEAKER) 200 mg/dL 70-110 TESTED AT [address] (test ghon=4697) [place] [address] POCT-GLUCOSE [id number] 17:51:00 Test Item Value Reference Range Comments POC-GLUCOSE METER (BEAKER) 224 mg/dL 70-110 TESTED AT [address] (test niqe=2714) [place] [address] [id number] 13:34:00 Test Item Value Reference Range Comments PARTIAL THROMBOPLASTIN TIME (BEAKER) (test 85.8 seconds 22.5-36.0 sydi=965) POCT-GLUCOSE [id number] 13:26:00 Test Item Value Reference Range Comments POC-GLUCOSE METER (BEAKER) 208 mg/dL 70-110 TESTED AT [address] (test ywmh=9176) [place] [address] POCT-GLUCOSE [id number] 09:09:00 Test Item Value Reference Range Comments POC-GLUCOSE METER (BEAKER) 203 mg/dL 70-110 TESTED AT [address] (test kjzf=6961) [place] [address] BASIC METABOLIC [id number] 07:09:00 Test Item Value Reference Range Comments SODIUM (BEAKER) (test 139 meq/L 136-145 okvf=502) POTASSIUM (BEAKER) (test 3.6 meq/L 3.5-5.1 tqga=498) CHLORIDE (BEAKER) (test 97 meq/L 98-107 zdad=624) CO2 (BEAKER) (test 30 meq/L 22-29 cnqf=777) BLOOD UREA NITROGEN 56 mg/dL 7-21 (BEAKER) (test urwg=079) CREATININE (BEAKER) (test 2.30 mg/dL 0.57-1.25 efwm=977) GLUCOSE RANDOM (BEAKER) 227 mg/dL 70-105 (test cgme=395) CALCIUM (BEAKER) (test 9.3 mg/dL 8.4-10.2 chlv=134) EGFR (BEAKER) (test 28 mL/min/1.73 sq m ESTIMATED GFR IS NOT gpoi=4353) ACCURATE CREATININE CLEARANCE IN PREDICTING GLOMERULAR FILTRATION RATE. ESTIMATED GFR IS NOT APPLICABLE FOR DIALYSIS PATIENTS. [id number] 07:08:00 Test Item Value Reference Range Comments MAGNESIUM (BEAKER) (test qfep=766) 1.6 mg/dL 1.6-2.6 [id number] 06:31:00 Test Item Value Reference Range Comments PARTIAL THROMBOPLASTIN TIME (BEAKER) (test 89.3 seconds 22.5-36.0 psit=959) While on warfarin.PROTHROMBIN TIME/[id number] 06:29:00 Test Item Value Reference Range Comments PROTIME (BEAKER) (test psip=108) 19.8 seconds 11.7-14.7 INR (BEAKER) (test awtd=566) 1.7 <=5.9 RECOMMENDED COUMADIN/WARFARIN INR THERAPY RANGESSTANDARD DOSE: 2.0 - 3.0 Includes: PROPHYLAXIS forvenous thrombosis, systemic embolization; TREATMENT for venous thrombosis and/or pulmonary embolus.HIGH RISK: Target INR is 2.5-3.5 for patients with mechanical heart valves.While on warfarin.[id number] 22:50 :00 Test Item Value Reference Range Comments PARTIAL THROMBOPLASTIN TIME (BEAKER) (test 110.0 seconds 22.5-36.0 nobr=975) POCT-GLUCOSE [id number] 22:48:00 Test Item Value Reference Range Comments POC-GLUCOSE METER (BEAKER) 188 mg/dL 70-110 TESTED AT [facility] [address] [facility] (test vzvw=7055) [facility] [address] POCT-GLUCOSE [id number] 17:03:00 Test Item Value Reference Range Comments POC-GLUCOSE METER (BEAKER) 185 mg/dL 70-110 TESTED AT [facility] [address] [facility] (test kskv=7410) [facility] [address] [id number] 15:20:00 Test Item Value Reference Range Comments PARTIAL THROMBOPLASTIN TIME (BEAKER) (test 64.0 seconds 22.5-36.0 jwfl=962) POCT-GLUCOSE [id number] 12:48:00 Test Item Value Reference Range Comments POC-GLUCOSE METER (BEAKER) 269 mg/dL 70-110 TESTED AT [facility] [address] [facility] (test ueed=7896) [facility] [address] POCT-GLUCOSE [id number] 09:25:00 Test Item Value Reference Range Comments POC-GLUCOSE METER (BEAKER) 209 mg/dL 70-110 TESTED AT [place] [id number] [facility] (test csft=1234) [facility] [address] [id number] 06:39:00 Test Item Value Reference Range Comments PARTIAL THROMBOPLASTIN TIME (BEAKER) (test 102.4 seconds 22.5-36.0 yzrt=043) While on warfarin.VITAMIN D, 91-[id number] 05:39:00 Test Item Value Reference Range Comments VITAMIN D 25-OH (BEAKER) (test oyvt=9575) 37.0 ng/mL 6.6-49.9 Effective 09/01/2017: Reference Range ChangeNew: 6.6-49.9 ng/mL Previous: 13.0 -47.8 ng/mLRecommended Vitamin D Target Range: 30.0-40.0 [facility]OL[facility] [id number] 05:16:00 Test Item Value Reference Range Comments SODIUM (BEAKER) (test 138 meq/L 136-145 bgmh=316) POTASSIUM (BEAKER) (test 3.8 meq/L 3.5-5.1 eprk=995) CHLORIDE (BEAKER) (test 97 meq/L 98-107 nird=062) CO2 (BEAKER) (test 31 meq/L 22-29 dkft=587) BLOOD UREA NITROGEN 62 mg/dL 7-21 (BEAKER) (test dzpt=817) CREATININE (BEAKER) (test 2.20 mg/dL 0.57-1.25 phga=615) GLUCOSE RANDOM (BEAKER) 162 mg/dL 70-105 (test jzgj=074) CALCIUM (BEAKER) (test 9.2 mg/dL 8.4-10.2 taqt=521) EGFR (BEAKER) (test 29 mL/min/1.73 sq m ESTIMATED GFR IS NOT liaq=1791) ACCURATE CREATININE CLEARANCE IN PREDICTING GLOMERULAR FILTRATION RATE. ESTIMATED GFR IS NOT APPLICABLE FOR DIALYSIS PATIENTS. [id number] 05:11:00 Test Item Value Reference Range Comments PHOSPHORUS (BEAKER) (test vroj=936) 4.4 mg/dL 2.3-4.7 [id number] 05:11:00 Test Item Value Reference Range Comments MAGNESIUM (BEAKER) (test goog=002) 1.5 mg/dL 1.6-2.6 PROTHROMBIN TIME/[id number] 05:05:00 Test Item Value Reference Range Comments PROTIME (BEAKER) (test hgoy=276) 18.6 seconds 11.7-14.7 INR (BEAKER) (test uvsr=934) 1.6 <=5.9 RECOMMENDED COUMADIN/WARFARIN INR THERAPY RANGESSTANDARD DOSE: 2.0 - 3.0 Includes: PROPHYLAXIS forvenous thrombosis, systemic embolization; TREATMENT for venous thrombosis and/or pulmonary embolus.HIGH RISK: Target INR is 2.5-3.5 for patients with mechanical heart valves.While on warfarin.POCT-GLUCOSE [id number] 22:28:00 Test Item Value Reference Range Comments POC-GLUCOSE METER (BEAKER) 196 mg/dL 70-110 TESTED AT [facility] [address] [facility] (test ebnc=0374) [place] [id number] POCT-GLUCOSE [id number] 16:37:00 Test Item Value Reference Range Comments POC-GLUCOSE METER (BEAKER) 211 mg/dL 70-110 TESTED AT [facility] [address] [facility] (test mwai=9063) [place] [address] RAD, FOOT, 2 VIEWS, [id number] 13:10:00Reason for exam:->painFINAL REPORT TECHNIQUE: Frontal, lateral, [...] MDReport Verified Date/Time: 01/24/2019 13:10:38 Reading Location: [facility] Radiology Reading Room POCT-GLUCOSE [id number] 12:43:00 Test Item Value Reference Range Comments POC-GLUCOSE METER (BEAKER) 217 mg/dL 70-110 TESTED AT [address] (test mdnt=7665) [facility] [id number] POCT-GLUCOSE [id number] 08:21:00 Test Item Value Reference Range Comments POC-GLUCOSE METER (BEAKER) 186 mg/dL 70-110 TESTED AT [address] (test efgf=3084) [place] [address] [id number] 05:21:00 Test Item Value Reference Range Comments PHOSPHORUS (BEAKER) (test zwwi=608) 4.5 mg/dL 2.3-4.7 [id number] 05:21:00 Test Item Value Reference Range Comments MAGNESIUM (BEAKER) (test paet=459) 1.7 mg/dL 1.6-2.6 BASIC METABOLIC [id number] 05:21:00 Test Item Value Reference Range Comments SODIUM (BEAKER) (test 136 meq/L 136-145 veay=700) POTASSIUM (BEAKER) (test 3.9 meq/L 3.5-5.1 mscy=358) CHLORIDE (BEAKER) (test 95 meq/L 98-107 deqq=339) CO2 (BEAKER) (test 30 meq/L 22-29 cdfg=676) BLOOD UREA NITROGEN 68 mg/dL 7-21 (BEAKER) (test nmfh=950) CREATININE (BEAKER) (test 2.15 mg/dL 0.57-1.25 sbnb=132) GLUCOSE RANDOM (BEAKER) 170 mg/dL 70-105 (test xdpg=250) CALCIUM (BEAKER) (test 8.8 mg/dL 8.4-10.2 aysj=387) EGFR (BEAKER) (test 30 mL/min/1.73 sq m ESTIMATED GFR IS NOT gtxk=8039) ACCURATE CREATININE CLEARANCE IN PREDICTING GLOMERULAR FILTRATION RATE. ESTIMATED GFR IS NOT APPLICABLE FOR DIALYSIS PATIENTS. [id number] 05:16:00 Test Item Value Reference Range Comments PARTIAL THROMBOPLASTIN TIME (BEAKER) (test 84.7 seconds 22.5-36.0 eabo=602) While on warfarin.PROTHROMBIN TIME/[id number] 05:14:00 Test Item Value Reference Range Comments PROTIME (BEAKER) (test xleg=479) 15.7 seconds 11.7-14.7 INR (BEAKER) (test unzi=312) 1.2 <=5.9 RECOMMENDED COUMADIN/WARFARIN INR THERAPY RANGESSTANDARD DOSE: 2.0 - 3.0 Includes: PROPHYLAXIS forvenous thrombosis, systemic embolization; TREATMENT for venous thrombosis and/or pulmonary embolus.HIGH RISK: Target INR is 2.5-3.5 for patients with mechanical heart valves.While on warfarin.POCT-GLUCOSE [id number] 21:30:00 Test Item Value Reference Range Comments POC-GLUCOSE METER (BEAKER) 267 mg/dL 70-110 TESTED AT [address] (test etvl=6830) [place] [address] POCT-GLUCOSE [id number] 16:28:00 Test Item Value Reference Range Comments POC-GLUCOSE METER (BEAKER) 184 mg/dL 70-110 TESTED AT [address] (test ftzk=2165) [place] [address] POCT-GLUCOSE [id number] 12:04:00 Test Item Value Reference Range Comments POC-GLUCOSE METER (BEAKER) 213 mg/dL 70-110 TESTED AT [address] (test ofuz=6943) [place] [address] POCT-GLUCOSE [id number] 08:05:00 Test Item Value Reference Range Comments POC-GLUCOSE METER (BEAKER) 175 mg/dL 70-110 TESTED AT [address] (test lcfp=7269) [place] [address] BLOOD [id number] 07:01:00 Test Item Value Reference Range Comments CULTURE (BEAKER) (test lglz=3103) No growth in 5 days BLOOD [id number] 07:01:00 Test Item Value Reference Range Comments CULTURE (BEAKER) (test ksmg=1947) No growth in 5 days [id number] 05:40:00 Test Item Value Reference Range Comments FERRITIN (BEAKER) (test vrgk=088) 508 ng/mL 5-275 Next blood drawCBC W/PLT COUNT & AUTO [id number] 05:25:00 Test Item Value Reference Range Comments WHITE BLOOD CELL COUNT (BEAKER) (test daxz=295) 9.0 K/ L 3.5-10.5 RED BLOOD CELL COUNT (BEAKER) (test cdyl=783) 3.36 M/ L 4.63-6.08 HEMOGLOBIN (BEAKER) (test uetx=522) 10.7 GM/DL 13.7-17.5 HEMATOCRIT (BEAKER) (test qafy=141) 33.0 % 40.1-51.0 MEAN CORPUSCULAR VOLUME (BEAKER) (test dfvj=955) 98.2 fL 79.0-92.2 MEAN CORPUSCULAR HEMOGLOBIN (BEAKER) (test 31.8 pg 25.7-32.2 ifur=229) MEAN CORPUSCULAR HEMOGLOBIN CONC (BEAKER) (test 32.4 GM/DL 32.3-36.5 airj=355) RED CELL DISTRIBUTION WIDTH (BEAKER) (test 14.1 % 11.6-14.4 flhk=152) PLATELET COUNT (BEAKER) (test faaf=731) 241 K/CU MM 150-450 MEAN PLATELET VOLUME (BEAKER) (test fvuj=763) 10.1 fL 9.4-12.4 NUCLEATED RED BLOOD CELLS (BEAKER) (test 0 /100 WBC 0-0 mwog=377) NEUTROPHILS RELATIVE PERCENT (BEAKER) (test 63 % fuui=949) LYMPHOCYTES RELATIVE PERCENT (BEAKER) (test 21 % jrkf=531) MONOCYTES RELATIVE PERCENT (BEAKER) (test 11 % lflz=464) EOSINOPHILS RELATIVE PERCENT (BEAKER) (test 3 % ibfr=529) BASOPHILS RELATIVE PERCENT (BEAKER) (test 1 % atwl=715) NEUTROPHILS ABSOLUTE COUNT (BEAKER) (test 5.71 K/ L 1.78-5.38 kqzn=261) LYMPHOCYTES ABSOLUTE COUNT (BEAKER) (test 1.91 K/ L 1.32-3.57 uehy=767) MONOCYTES ABSOLUTE COUNT (BEAKER) (test 0.96 K/ L 0.30-0.82 uumh=768) EOSINOPHILS ABSOLUTE COUNT (BEAKER) (test 0.29 K/ L 0.04-0.54 sbzz=513) BASOPHILS ABSOLUTE COUNT (BEAKER) (test 0.05 K/ L 0.01-0.08 dwqb=771) IMMATURE GRANULOCYTES-RELATIVE PERCENT (BEAKER) 1 % 0-1 (test mofs=6925) PROTHROMBIN [id number] 04:51:00 Test Item Value Reference Range Comments PROTIME (BEAKER) (test myez=423) 14.8 seconds 11.7-14.7 INR (BEAKER) (test dvmh=351) 1.2 <=5.9 RECOMMENDED COUMADIN/WARFARIN INR THERAPY RANGESSTANDARD DOSE: 2.0 - 3.0 Includes: PROPHYLAXIS forvenous thrombosis, systemic embolization; TREATMENT for venous thrombosis and/or pulmonary embolus.HIGH RISK: Target INR is 2.5-3.5 for patients with mechanical heart valves.While on warfarin.BASIC METABOLIC [id number] 04:49:00 Test Item Value Reference Range Comments SODIUM (BEAKER) (test 138 meq/L 136-145 hhlh=885) POTASSIUM (BEAKER) (test 4.2 meq/L 3.5-5.1 loag=457) CHLORIDE (BEAKER) (test 97 meq/L 98-107 kzyi=003) CO2 (BEAKER) (test 30 meq/L 22-29 nlop=683) BLOOD UREA NITROGEN 73 mg/dL 7-21 (BEAKER) (test ggkm=661) CREATININE (BEAKER) (test 2.32 mg/dL 0.57-1.25 tfkq=782) GLUCOSE RANDOM (BEAKER) 149 mg/dL 70-105 (test fvqo=323) CALCIUM (BEAKER) (test 8.5 mg/dL 8.4-10.2 eibu=213) EGFR (BEAKER) (test 28 mL/min/1.73 sq m ESTIMATED GFR IS NOT oqpo=4857) ACCURATE CREATININE CLEARANCE IN PREDICTING GLOMERULAR FILTRATION RATE. ESTIMATED GFR IS NOT APPLICABLE FOR DIALYSIS PATIENTS. [id number] 04:48:00 Test Item Value Reference Range Comments PHOSPHORUS (BEAKER) (test hfqt=844) 5.7 mg/dL 2.3-4.7 [id number] 04:48:00 Test Item Value Reference Range Comments MAGNESIUM (BEAKER) (test zwhr=795) 1.3 mg/dL 1.6-2.6 [id number] 02:38:00 Test Item Value Reference Range Comments PARTIAL THROMBOPLASTIN TIME (BEAKER) (test 72.2 seconds 22.5-36.0 gsbm=709) POCT-GLUCOSE [id number] 23:00:00 Test Item Value Reference Range Comments POC-GLUCOSE METER (BEAKER) 227 mg/dL 70-110 TESTED AT [address] (test vuzb=8121) [place] [address] [id number] 21:03:00 Test Item Value Reference Range Comments PARTIAL THROMBOPLASTIN TIME (BEAKER) (test 88.9 seconds 22.5-36.0 lucg=524) POCT-GLUCOSE [id number] 19:37:00 Test Item Value Reference Range Comments POC-GLUCOSE METER (BEAKER) 187 mg/dL 70-110 TESTED AT [address] (test hajl=0983) [place] [address] [id number] 16:35:00 Test Item Value Reference Range Comments FERRITIN (BEAKER) (test lvoc=670) 404 ng/mL 22-322 Next blood drawPOCT-GLUCOSE [id number] 11:54:00 Test Item Value Reference Range Comments POC-GLUCOSE METER (BEAKER) 217 mg/dL 70-110 TESTED AT [address] (test zkcn=5136) [place] [address] [id number] 11:49:00 Test Item Value Reference Range Comments PARTIAL THROMBOPLASTIN TIME (BEAKER) (test 65.5 seconds 22.5-36.0 jqfg=137) POCT-GLUCOSE [id number] 08:15:00 Test Item Value Reference Range Comments POC-GLUCOSE METER (BEAKER) 183 mg/dL 70-110 TESTED AT [address] (test mahv=7261) [place] [address] VITAMIN [id number] 05:29:00 Test Item Value Reference Range Comments VITAMIN B12 (BEAKER) (test acap=388) 1426 pg/mL 213-816 Next blood drawNext blood drawBASIC METABOLIC [id number] 04:55:00 Test Item Value Reference Range Comments SODIUM (BEAKER) (test 139 meq/L 136-145 warm=167) POTASSIUM (BEAKER) (test 3.8 meq/L 3.5-5.1 gbez=231) CHLORIDE (BEAKER) (test 99 meq/L 98-107 vbpv=599) CO2 (BEAKER) (test 29 meq/L 22-29 zuvb=894) BLOOD UREA NITROGEN 71 mg/dL 7-21 (BEAKER) (test agla=989) CREATININE (BEAKER) (test 2.35 mg/dL 0.57-1.25 uvyc=281) GLUCOSE RANDOM (BEAKER) 152 mg/dL 70-105 (test bqmq=046) CALCIUM (BEAKER) (test 8.2 mg/dL 8.4-10.2 sdfx=800) EGFR (BEAKER) (test 27 mL/min/1.73 sq m ESTIMATED GFR IS NOT zfjv=9607) ACCURATE CREATININE CLEARANCE IN PREDICTING GLOMERULAR FILTRATION RATE. ESTIMATED GFR IS NOT APPLICABLE FOR DIALYSIS PATIENTS. [id number] 04:48:00 Test Item Value Reference Range Comments PHOSPHORUS (BEAKER) (test etzn=589) 4.9 mg/dL 2.3-4.7 [id number] 04:48:00 Test Item Value Reference Range Comments MAGNESIUM (BEAKER) (test goqt=698) 1.4 mg/dL 1.6-2.6 [id number] 04:42:00 Test Item Value Reference Range Comments PARTIAL THROMBOPLASTIN TIME (BEAKER) (test 46.5 seconds 22.5-36.0 ahiq=823) While on warfarin.PROTHROMBIN [id number] 04:41:00 Test Item Value Reference Range Comments PROTIME (BEAKER) (test uifg=059) 14.9 seconds 11.7-14.7 INR (BEAKER) (test wegc=532) 1.2 <=5.9 RECOMMENDED COUMADIN/WARFARIN INR THERAPY RANGESSTANDARD DOSE: 2.0 - 3.0 Includes: PROPHYLAXIS forvenous thrombosis, systemic embolization; TREATMENT for venous thrombosis and/or pulmonary embolus.HIGH RISK: Target INR is 2.5-3.5 for patients with mechanical heart valves.While on warfarin.POCT-GLUCOSE [id number] 21:36:00 Test Item Value Reference Range Comments POC-GLUCOSE METER (BEAKER) 209 mg/dL 70-110 TESTED AT [address] (test avka=0243) [place] [address] POCT-GLUCOSE [id number] 18:55:00 Test Item Value Reference Range Comments POC-GLUCOSE METER (BEAKER) 177 mg/dL 70-110 TESTED AT [address] (test vkfn=8378) [place] [address] PROTHROMBIN [id number] 15:00:00 Test Item Value Reference Range Comments PROTIME (BEAKER) (test kfet=390) 15.7 seconds 11.7-14.7 INR (BEAKER) (test rger=519) 1.2 <=5.9 RECOMMENDED COUMADIN/WARFARIN INR THERAPY RANGESSTANDARD DOSE: 2.0 - 3.0 Includes: PROPHYLAXIS forvenous thrombosis, systemic embolization; TREATMENT for venous thrombosis and/or pulmonary embolus.HIGH RISK: Target INR is 2.5-3.5 for patients with mechanical heart valves.[id number] 13:32:00 Test Item Value Reference Range Comments PARTIAL THROMBOPLASTIN TIME (BEAKER) (test 76.3 seconds 22.5-36.0 pbcn=073) POCT-GLUCOSE [id number] 12:15:00 Test Item Value Reference Range Comments POC-GLUCOSE METER (BEAKER) 273 mg/dL 70-110 TESTED AT [address] (test owgh=1711) [place] [address] [id number] 11:33:00 Test Item Value Reference Range Comments PARTIAL THROMBOPLASTIN TIME (BEAKER) (test > seconds 22.5-36.0 ovny=944) POCT-GLUCOSE [id number] 07:00:00 Test Item Value Reference Range Comments POC-GLUCOSE METER (BEAKER) 190 mg/dL 70-110 TESTED AT [address] (test uzsu=6176) [place] [address] VITAMIN [id number] 04:08:00 Test Item Value Reference Range Comments VITAMIN B12 (BEAKER) (test flbq=773) 1616 pg/mL 213-816 Next blood drawNext blood [id number] 04:08:00 Test Item Value Reference Range Comments FERRITIN (BEAKER) (test kjkx=994) 404 ng/mL 5-275 Next blood drawNext blood drawBASIC METABOLIC [id number] 03:33:00 Test Item Value Reference Range Comments SODIUM (BEAKER) (test 143 meq/L 136-145 pnlm=303) POTASSIUM (BEAKER) (test 4.0 meq/L 3.5-5.1 lrtw=397) CHLORIDE (BEAKER) (test 104 meq/L 98-107 ajmx=279) CO2 (BEAKER) (test 29 meq/L 22-29 kqej=460) BLOOD UREA NITROGEN 81 mg/dL 7-21 (BEAKER) (test vrew=838) CREATININE (BEAKER) (test 2.62 mg/dL 0.57-1.25 lfdj=072) GLUCOSE RANDOM (BEAKER) 163 mg/dL 70-105 (test zvwm=254) CALCIUM (BEAKER) (test 8.9 mg/dL 8.4-10.2 vujd=487) EGFR (BEAKER) (test 24 mL/min/1.73 sq m ESTIMATED GFR IS NOT fcjz=8710) ACCURATE CREATININE CLEARANCE IN PREDICTING GLOMERULAR FILTRATION RATE. ESTIMATED GFR IS NOT APPLICABLE FOR DIALYSIS PATIENTS. [id number] 03:30:00 Test Item Value Reference Range Comments PHOSPHORUS (BEAKER) (test dzud=336) 5.2 mg/dL 2.3-4.7 [id number] 03:30:00 Test Item Value Reference Range Comments MAGNESIUM (BEAKER) (test xgzp=850) 1.6 mg/dL 1.6-2.6 [id number] 03:28:00 Test Item Value Reference Range Comments PARTIAL THROMBOPLASTIN TIME (BEAKER) (test 72.8 seconds 22.5-36.0 rwnc=382) CBC W/PLT COUNT & AUTO [id number] 03:17:00 Test Item Value Reference Range Comments WHITE BLOOD CELL COUNT (BEAKER) (test psxq=083) 10.4 K/ L 3.5-10.5 RED BLOOD CELL COUNT (BEAKER) (test yuqn=600) 3.48 M/ L 4.63-6.08 HEMOGLOBIN (BEAKER) (test kgyw=341) 11.2 GM/DL 13.7-17.5 HEMATOCRIT (BEAKER) (test esta=103) 34.2 % 40.1-51.0 MEAN CORPUSCULAR VOLUME (BEAKER) (test omug=731) 98.3 fL 79.0-92.2 MEAN CORPUSCULAR HEMOGLOBIN (BEAKER) (test 32.2 pg 25.7-32.2 xbzw=503) MEAN CORPUSCULAR HEMOGLOBIN CONC (BEAKER) (test 32.7 GM/DL 32.3-36.5 bsky=202) RED CELL DISTRIBUTION WIDTH (BEAKER) (test 14.4 % 11.6-14.4 xama=182) PLATELET COUNT (BEAKER) (test rpxs=282) 242 K/CU MM 150-450 MEAN PLATELET VOLUME (BEAKER) (test exuw=247) 9.9 fL 9.4-12.4 NUCLEATED RED BLOOD CELLS (BEAKER) (test 0 /100 WBC 0-0 vfmm=755) NEUTROPHILS RELATIVE PERCENT (BEAKER) (test 74 % nkax=773) LYMPHOCYTES RELATIVE PERCENT (BEAKER) (test 12 % ilgk=729) MONOCYTES RELATIVE PERCENT (BEAKER) (test 9 % lvpk=691) EOSINOPHILS RELATIVE PERCENT (BEAKER) (test 3 % xzlx=300) BASOPHILS RELATIVE PERCENT (BEAKER) (test 1 % khnn=245) NEUTROPHILS ABSOLUTE COUNT (BEAKER) (test 7.73 K/ L 1.78-5.38 uolw=028) LYMPHOCYTES ABSOLUTE COUNT (BEAKER) (test 1.27 K/ L 1.32-3.57 rikk=482) MONOCYTES ABSOLUTE COUNT (BEAKER) (test 0.93 K/ L 0.30-0.82 qkwr=367) EOSINOPHILS ABSOLUTE COUNT (BEAKER) (test 0.30 K/ L 0.04-0.54 egkd=560) BASOPHILS ABSOLUTE COUNT (BEAKER) (test 0.05 K/ L 0.01-0.08 qekz=559) IMMATURE GRANULOCYTES-RELATIVE PERCENT (BEAKER) 1 % 0-1 (test ftdj=8563) POCT-GLUCOSE [id number] 00:35:00 Test Item Value Reference Range Comments POC-GLUCOSE METER (BEAKER) 195 mg/dL 70-110 TESTED AT [facility] [address] [facility] (test qicz=6831) [facility] [address] [id number] 20:37:00 Test Item Value Reference Range Comments PARTIAL THROMBOPLASTIN TIME (BEAKER) (test 50.2 seconds 22.5-36.0 dtyy=432) POCT-GLUCOSE [id number] 18:35:00 Test Item Value Reference Range Comments POC-GLUCOSE METER (BEAKER) 173 mg/dL 70-110 TESTED AT [facility] [address] (test lnox=4641) [place] [address] BRONCHIAL CULTURE + GRAM [id number] 15:38:00 Test Item Value Reference Range Comments CULTURE (BEAKER) (test <1+ Normal respiratory jeana scic=7490) present GRAM STAIN RESULT (BEAKER) No White blood cells seen (test cvek=1520) GRAM STAIN RESULT (BEAKER) No organisms seen (test upmn=82753) SPUTUM CULTURE + GRAM [id number] 14:47:00 Test Item Value Reference Range Comments CULTURE (BEAKER) (test slcb=7046) See comment GRAM STAIN RESULT (BEAKER) (test <1+ WBCs ogbz=9724) GRAM STAIN RESULT (BEAKER) (test 0-5 epithelial cells sevg=685344) GRAM STAIN RESULT (BEAKER) (test No organisms seen rhdk=013523) <1+ yeast1+ Normal respiratory jeana presentMRSA [id number] 14:46:00 Test Item Value Reference Range Comments CULTURE (BEAKER) (test dvvb=2700) No MRSA isolated SPUTUM CULTURE + GRAM [id number] 14:45:00 Test Item Value Reference Range Comments CULTURE (BEAKER) (test See comment xtna=4719) GRAM STAIN RESULT (BEAKER) 2+ White blood cells seen (test avcy=9929) GRAM STAIN RESULT (BEAKER) 0-5 epithelial cells (test cvmz=737675) GRAM STAIN RESULT (BEAKER) 1+ gram positive cocci in pairs (test mmcv=731573) 1+ yeast1+ Normal respiratory jeana [id number] 14:20:00 Test Item Value Reference Range Comments PARTIAL THROMBOPLASTIN TIME (BEAKER) (test 57.9 seconds 22.5-36.0 vbup=418) [id number] 12:47:00 Test Item Value Reference Range Comments PARTIAL THROMBOPLASTIN TIME (BEAKER) (test > seconds 22.5-36.0 odeg=023) POCT-GLUCOSE [id number] 12:39:00 Test Item Value Reference Range Comments POC-GLUCOSE METER (BEAKER) 194 mg/dL 70-110 TESTED AT [place] [id number] [facility] (test krju=0102) [place] [id number] VITAMIN [id number] 08:56:00 Test Item Value Reference Range Comments VITAMIN B12 (BEAKER) (test uhbg=869) 1677 pg/mL 213-816 Next blood drawNext blood [id number] 08:56:00 Test Item Value Reference Range Comments FERRITIN (BEAKER) (test fsts=746) 320 ng/mL 5-275 Next blood drawNext blood drawPOCT-GLUCOSE [id number] 07:15:00 Test Item Value Reference Range Comments POC-GLUCOSE METER (BEAKER) 195 mg/dL 70-110 TESTED AT [address] (test ngdt=1642) [place] [address] [id number] 05:51:00 Test Item Value Reference Range Comments PARTIAL THROMBOPLASTIN TIME (BEAKER) (test 47.1 seconds 22.5-36.0 zxyr=958) BASIC METABOLIC [id number] 05:40:00 Test Item Value Reference Range Comments SODIUM (BEAKER) (test 142 meq/L 136-145 ncjt=340) POTASSIUM (BEAKER) (test 4.6 meq/L 3.5-5.1 jkxn=788) CHLORIDE (BEAKER) (test 107 meq/L 98-107 vgcu=739) CO2 (BEAKER) (test 23 meq/L 22-29 xtjv=031) BLOOD UREA NITROGEN 83 mg/dL 7-21 (BEAKER) (test flak=291) CREATININE (BEAKER) (test 3.16 mg/dL 0.57-1.25 amws=812) GLUCOSE RANDOM (BEAKER) 224 mg/dL 70-105 (test ksyq=919) CALCIUM (BEAKER) (test 9.0 mg/dL 8.4-10.2 aogb=087) EGFR (BEAKER) (test 19 mL/min/1.73 sq m ESTIMATED GFR IS NOT gdqr=5010) ACCURATE CREATININE CLEARANCE IN PREDICTING GLOMERULAR FILTRATION RATE. ESTIMATED GFR IS NOT APPLICABLE FOR DIALYSIS PATIENTS. [id number] 05:33:00 Test Item Value Reference Range Comments MAGNESIUM (BEAKER) (test pbgs=518) 1.9 mg/dL 1.6-2.6 [id number] 05:16:00 Test Item Value Reference Range Comments PROCALCITONIN (BEAKER) (test sbjw=3650) 0.89 ng/mL <0.05 SEPSIS RISK (ng/mL)Low: 0.05-0.50Intermediate: 0.51-2.00High: & gt;=[id number] 05:10:00 Test Item Value Reference Range Comments PARTIAL THROMBOPLASTIN TIME (BEAKER) (test > seconds 22.5-36.0 uhao=608) [id number] 04:43:00 Test Item Value Reference Range Comments PHOSPHORUS (BEAKER) (test gvyh=573) 6.3 mg/dL 2.3-4.7 POCT-GLUCOSE [id number] 00:30:00 Test Item Value Reference Range Comments POC-GLUCOSE METER (BEAKER) 190 mg/dL 70-110 TESTED AT [address] (test iogn=4191) [facility] [address] [id number] 22:42:00 Test Item Value Reference Range Comments PARTIAL THROMBOPLASTIN TIME (BEAKER) (test 30.8 seconds 22.5-36.0 twks=052) [id number] 21:48:00 Test Item Value Reference Range Comments PARTIAL THROMBOPLASTIN TIME (BEAKER) (test 32.1 seconds 22.5-36.0 panq=150) [id number] 20:02:00 Test Item Value Reference Range Comments PARTIAL THROMBOPLASTIN TIME (BEAKER) (test 154.5 seconds 22.5-36.0 ngfa=430) U/S, RENAL, [id number] 17:24:00Reason for exam:->AKIFINAL REPORT Ultrasound of the [...] Verified Date/Time: 01/19/2019 17:24: 49 Reading Location: [address] Ultrasound Reading Room POCT-GLUCOSE [id number] 16 :20:00 Test Item Value Reference Range Comments POC-GLUCOSE METER (BEAKER) 217 mg/dL 70-110 TESTED AT [address] (test rczw=7384) [facility] [address] BLOOD GAS, [id number] 13:45:00 Test Item Value Reference Range Comments PH ARTERIAL (BEAKER) (test sdqh=297) 7.42 7.35-7.45 PCO2 ARTERIAL (BEAKER) (test kdgm=404) 37 mmHg 35-45 PO2 ARTERIAL (BEAKER) (test xlap=718) 155 mmHg 80-90 O2 SATURATION ARTERIAL (BEAKER) (test amhq=382) 99.0 % 96.0-97.0 HCO3 ARTERIAL (BEAKER) (test zmrc=235) 23 mmol/L 21-29 BASE EXCESS ARTERIAL (BEAKER) (test acnd=076) -0.8 mmol/L -2.0-3.0 PATIENT TEMPERATURE (BEAKER) (test mzdu=7257) 37.5 C FIO2 (BEAKER) (test zagp=1794) 40.0 % For 30 minutes AFTER [id number] 12:36:00 Test Item Value Reference Range Comments PARTIAL THROMBOPLASTIN TIME 102.5 seconds 22.5-36.0 Specimen not clotted (BEAKER) (test rkwi=655) RAD, CHEST, 1 VIEW, NON [id number] 11:12:00Reason for exam:->pnaShould this be performed at [...] MDReport Verified Date/Time: 01/19/2019 11:12:39 Reading Location: [facility] Radiology Reading Room POCT-GLUCOSE [id number] 06:18:00 Test Item Value Reference Range Comments POC-GLUCOSE METER (BEAKER) 224 mg/dL 70-110 TESTED AT [facility] [address] [facility] (test uqrp=7051) [facility] [address] [id number] 05:20:00 Test Item Value Reference Range Comments PARTIAL THROMBOPLASTIN TIME (BEAKER) (test 28.9 seconds 22.5-36.0 xvca=089) VITAMIN [id number] 04:57:00 Test Item Value Reference Range Comments VITAMIN B12 (BEAKER) (test qppu=978) 1685 pg/mL 213-816 Next blood drawNext blood [id number] 04:57:00 Test Item Value Reference Range Comments FERRITIN (BEAKER) (test ibcn=404) 320 ng/mL 5-275 Next blood drawNext blood drawBASIC METABOLIC [id number] 04:35:00 Test Item Value Reference Range Comments SODIUM (BEAKER) (test 138 meq/L 136-145 qxig=050) POTASSIUM (BEAKER) (test 4.7 meq/L 3.5-5.1 ndwp=942) CHLORIDE (BEAKER) (test 105 meq/L 98-107 ngyt=686) CO2 (BEAKER) (test 21 meq/L 22-29 gglq=290) BLOOD UREA NITROGEN 82 mg/dL 7-21 (BEAKER) (test neat=127) CREATININE (BEAKER) (test 3.52 mg/dL 0.57-1.25 qduw=174) GLUCOSE RANDOM (BEAKER) 209 mg/dL 70-105 (test uwwk=713) CALCIUM (BEAKER) (test 8.8 mg/dL 8.4-10.2 iixd=260) EGFR (BEAKER) (test 17 mL/min/1.73 sq m ESTIMATED GFR IS NOT iipa=1058) ACCURATE CREATININE CLEARANCE IN PREDICTING GLOMERULAR FILTRATION RATE. ESTIMATED GFR IS NOT APPLICABLE FOR DIALYSIS PATIENTS. [id number] 04:34:00 Test Item Value Reference Range Comments PHOSPHORUS (BEAKER) (test zukb=477) 5.8 mg/dL 2.3-4.7 [id number] 04:34:00 Test Item Value Reference Range Comments MAGNESIUM (BEAKER) (test zwai=612) 1.9 mg/dL 1.6-2.6 VANCOMYCIN LEVEL, [id number] 04:27:00 Test Item Value Reference Range Comments VANCOMYCIN RANDOM (BEAKER) (test ypkn=690) 14.6 ug/mL Reference Range: No NormalsCBC W/PLT COUNT & AUTO [id number] 04: 25:00 Test Item Value Reference Range Comments WHITE BLOOD CELL COUNT (BEAKER) (test exhe=136) 11.6 K/ L 3.5-10.5 RED BLOOD CELL COUNT (BEAKER) (test thdk=558) 3.57 M/ L 4.63-6.08 HEMOGLOBIN (BEAKER) (test yqzc=659) 11.4 GM/DL 13.7-17.5 HEMATOCRIT (BEAKER) (test wepw=094) 34.0 % 40.1-51.0 MEAN CORPUSCULAR VOLUME (BEAKER) (test onjx=229) 95.2 fL 79.0-92.2 MEAN CORPUSCULAR HEMOGLOBIN (BEAKER) (test 31.9 pg 25.7-32.2 unfk=619) MEAN CORPUSCULAR HEMOGLOBIN CONC (BEAKER) (test 33.5 GM/DL 32.3-36.5 pjhb=127) RED CELL DISTRIBUTION WIDTH (BEAKER) (test 14.2 % 11.6-14.4 ctfx=803) PLATELET COUNT (BEAKER) (test cicr=125) 220 K/CU MM 150-450 MEAN PLATELET VOLUME (BEAKER) (test glyg=939) 9.7 fL 9.4-12.4 NUCLEATED RED BLOOD CELLS (BEAKER) (test 0 /100 WBC 0-0 bown=047) NEUTROPHILS RELATIVE PERCENT (BEAKER) (test 77 % ebyu=103) LYMPHOCYTES RELATIVE PERCENT (BEAKER) (test 9 % hgwk=988) MONOCYTES RELATIVE PERCENT (BEAKER) (test 8 % fvpv=702) EOSINOPHILS RELATIVE PERCENT (BEAKER) (test 2 % carf=913) BASOPHILS RELATIVE PERCENT (BEAKER) (test 1 % tvkd=500) NEUTROPHILS ABSOLUTE COUNT (BEAKER) (test 8.88 K/ L 1.78-5.38 zjql=837) LYMPHOCYTES ABSOLUTE COUNT (BEAKER) (test 1.04 K/ L 1.32-3.57 abaq=830) MONOCYTES ABSOLUTE COUNT (BEAKER) (test 0.92 K/ L 0.30-0.82 ifka=609) EOSINOPHILS ABSOLUTE COUNT (BEAKER) (test 0.19 K/ L 0.04-0.54 cjdo=392) BASOPHILS ABSOLUTE COUNT (BEAKER) (test 0.06 K/ L 0.01-0.08 xgpp=277) IMMATURE GRANULOCYTES-RELATIVE PERCENT (BEAKER) 5 % 0-1 (test gpdn=0382) POCT-GLUCOSE [id number] 02:05:00 Test Item Value Reference Range Comments POC-GLUCOSE METER (BEAKER) 145 mg/dL 70-110 TESTED AT [facility] [address] [facility] (test durd=5463) [facility] [address] BODY FLUID CELL COUNT WITH [id number] 18:40:00 Test Item Value Reference Range Comments APPEARANCE FLUID (BEAKER) (test ejqw=764) Hazy Clear COLOR FLUID (BEAKER) (test roxv=558) [place] Colorless, Straw RBC FLUID (BEAKER) (test rxbk=193) 3450 /cu mm <=1 ADJUSTED WBC FLUID (BEAKER) (test xmok=2749) 145 /cu mm <=5 LINING CELLS (BEAKER) (test xdqr=6099) 0 /cu mm <=1 NEUTROPHILS FLUID (BEAKER) (test olsq=7029) 85 % LYMPHS FLUID (BEAKER) (test rrpg=500) 0 % MONO/MACROPHAGE FLUID (BEAKER) (test ckyk=790) 15 % EOSINOPHILS FLUID (BEAKER) (test sads=366) 0 % BASO FLUID (BEAKER) (test edzx=049) 0 % CONTAINER BODY FLUID (BEAKER) (test auqw=3443) EDTA Tube POCT-GLUCOSE [id number] 18:12:00 Test Item Value Reference Range Comments POC-GLUCOSE METER (AKER) 195 mg/dL 70-110 TESTED AT [address] (test mmmq=3095) [facility] [address] VITAMIN D, [id number] 15:12:00 Test Item Value Reference Range Comments VITAMIN D 25-OH ([facility]) (test wxqk=3246) 31.9 ng/mL 6.6-49.9 Effective 09/01/2017: Reference Range ChangeNew: 6.6-49.9 ng/mL Previous: 13.0 -47.8 ng/mLRecommended Vitamin D Target Range: 30.0-40.0 ng/mLPTH, [id number] 14:57:00 Test Item Value Reference Range Comments PARATHYROID HORMONE INTACT (BEAKER) (test 251.9 pg/mL 8.5-72.5 reud=115) POTASSIUM, RANDOM [id number] 14:55:00 Test Item Value Reference Range Comments POTASSIUM URINE (BEAKER) (test onpo=366) 21.6 meq/L Reference Range: No NormalsUREA NITROGEN, RANDOM [id number] 14:55:00 Test Item Value Reference Range Comments UREA NITROGEN URINE (BEAKER) (test tklt=675) 603 mg/dL Reference Range: No NormalsPOCT-GLUCOSE [id number] 12:17:00 Test Item Value Reference Range Comments POC-GLUCOSE METER (BEAKER) 170 mg/dL 70-110 TESTED AT [address] (test ugte=6932) [place] [id number] 10:56:00 Test Item Value Reference Range Comments PARTIAL THROMBOPLASTIN TIME (AKER) (test 35.0 seconds 22.5-36.0 mkmb=067) Prior to initiating heparinRAD, ABDOMEN/KUB, 1 VIEW [id number] 08:28:00Reason for exam:->OG positioningFINAL REPORT Abdomen date Comment: Frontal view of the abdomen demonstrates a nasogastric tube present with tip noted in the body of the stomach. Signed: Keya Harris MDReport Verified Date/Time: 01/18/2019 08:28:12 Reading Location: [facility] Reading Room POCT-GLUCOSE [id number] 06:12:00 Test Item Value Reference Range Comments POC-GLUCOSE METER (BEAKER) 161 mg/dL 70-110 TESTED AT [facility] [address] (test ocgz=6538) [facility] [address] VITAMIN [id number] 04:17:00 Test Item Value Reference Range Comments VITAMIN B12 (BEAKER) (test qbrx=763) 1363 pg/mL 213-816 Next blood drawNext blood drawNext blood [id number] 04:17:00 Test Item Value Reference Range Comments FERRITIN (BEAKER) (test xiaf=577) 306 ng/mL 5-275 Next blood drawNext blood drawNext blood drawURINALYSIS W/ REFLEX URINE [id number] 03:55:00 Test Item Value Reference Range Comments COLOR (BEAKER) (test jbsu=676) Yellow CLARITY (BEAKER) (test jkwr=271) Cloudy SPECIFIC GRAVITY UA (BEAKER) (test lyre=947) 1.012 1.001-1.035 PH UA (BEAKER) (test nfyk=363) 5.5 5.0-8.0 PROTEIN UA (BEAKER) (test xtdk=215) 30 mg/dL Negative GLUCOSE UA (BEAKER) (test dknk=326) Negative Negative KETONES UA (BEAKER) (test ysmw=860) Negative Negative BILIRUBIN UA (BEAKER) (test epjk=456) Negative Negative BLOOD UA (BEAKER) (test zmtw=223) Moderate Negative NITRITE UA (BEAKER) (test ergd=924) Negative Negative LEUKOCYTE ESTERASE UA (BEAKER) (test emia=626) Large Negative UROBILINOGEN UA (BEAKER) (test rors=448) 0.2 mg/dL 0.2-1.0 RBC UA (BEAKER) (test ppcj=194) 27 /HPF WBC UA (BEAKER) (test lfck=144) 536 /HPF BACTERIA (BEAKER) (test rodz=657) Few MUCUS (BEAKER) (test plwz=3701) Occasional SQUAMOUS EPITHELIAL (BEAKER) (test pilr=926) 3 /HPF AMORPHOUS CRYSTALS (BEAKER) (test mbuy=0957) Moderate YEAST (BEAKER) (test koax=3546) Many SOURCE(BEAKER) (test mfpe=8529) IRON, TIBC, % SAT. (WITHOUT FERRITIN)2019-01-18 03:54:00 Test Item Value Reference Range Comments IRON (BEAKER) (test kffh=172) 59.0 ug/dL 40.0-160.0 TOTAL IRON BINDING CAPACITY (BEAKER) (test 160 ug/dL 250-450 vorq=815) IRON % SATURATION (2) (BEAKER) (test pruw=8354) 37 % 20-55 Next blood drawNext blood drawNext blood drawCOMPREHENSIVE METABOLIC [id number] 03:16:00 Test Item Value Reference Range Comments TOTAL PROTEIN (BEAKER) 6.0 gm/dL 6.0-8.3 (test wjjp=935) ALBUMIN (BEAKER) (test 2.7 g/dL 3.5-5.0 hrnn=8766) ALKALINE PHOSPHATASE 83 U/L 40-150 (BEAKER) (test hlyq=371) BILIRUBIN TOTAL (BEAKER) 1.0 mg/dL 0.2-1.2 (test qino=685) SODIUM (BEAKER) (test 136 meq/L 136-145 gxjr=397) POTASSIUM (BEAKER) (test 4.3 meq/L 3.5-5.1 ombm=179) CHLORIDE (BEAKER) (test 104 meq/L 98-107 zhxm=711) CO2 (BEAKER) (test 20 meq/L 22-29 zksz=951) BLOOD UREA NITROGEN 80 mg/dL 7-21 (BEAKER) (test pxnv=727) CREATININE (BEAKER) (test 3.90 mg/dL 0.57-1.25 fokx=983) GLUCOSE RANDOM (BEAKER) 151 mg/dL 70-105 (test sird=365) CALCIUM (BEAKER) (test 8.2 mg/dL 8.4-10.2 mzhy=728) AST (SGOT) (BEAKER) (test 26 U/L 5-34 isje=983) ALT (SGPT) (BEAKER) (test 21 U/L 6-55 futu=992) EGFR (BEAKER) (test 15 mL/min/1.73 sq m ESTIMATED GFR IS NOT wtgs=4723) ACCURATE CREATININE CLEARANCE IN PREDICTING GLOMERULAR FILTRATION RATE. ESTIMATED GFR IS NOT APPLICABLE FOR DIALYSIS PATIENTS. B-TYPE NATRIURETIC FACTOR (BNP)2019-01-18 03:08:00 Test Item Value Reference Range Comments B-TYPE NATRIURETIC PEPTIDE (BEAKER) (test 114 pg/mL 0-100 betc=441) CREATININE, RANDOM [id number] 03:01:00 Test Item Value Reference Range Comments CREATININE URINE (BEAKER) (test yotv=341) 82.0 mg/dL Reference Range: No NormalsPROTEIN, RANDOM [id number] 03:01:00 Test Item Value Reference Range Comments PROTEIN, URINE (BEAKER) (test omml=0033) 23 mg/dL 0-14 SODIUM, RANDOM [id number] 03:01:00 Test Item Value Reference Range Comments SODIUM URINE (BEAKER) (test niry=172) 30 meq/L Reference Range: No [id number] 02:58:00 Test Item Value Reference Range Comments PHOSPHORUS (BEAKER) (test xkfq=284) 5.3 mg/dL 2.3-4.7 [id number] 02:58:00 Test Item Value Reference Range Comments MAGNESIUM (BEAKER) (test abpy=943) 1.8 mg/dL 1.6-2.6 LACTIC ACID, ARTERIAL, WHOLE [id number] 02:57:00 Test Item Value Reference Range Comments LACTATE BLOOD ARTERIAL (2) 0.7 mmol/L 0.5-2.2 Specimen slightly hemolyzed (BEAKER) (test apcg=5779) PROTHROMBIN TIME/[id number] 02:53:00 Test Item Value Reference Range Comments PROTIME (BEAKER) (test iwfn=866) 15.9 seconds 11.7-14.7 INR (BEAKER) (test ygni=364) 1.3 <=5.9 RECOMMENDED COUMADIN/WARFARIN INR THERAPY RANGESSTANDARD DOSE: 2.0 - 3.0 Includes: PROPHYLAXIS forvenous thrombosis, systemic embolization; TREATMENT for venous thrombosis and/or pulmonary embolus.HIGH RISK: Target INR is 2.5-3.5 for patients with mechanical heart valves.[id number] 02:53:00 Test Item Value Reference Range Comments PARTIAL THROMBOPLASTIN TIME (BEAKER) (test 35.0 seconds 22.5-36.0 crdk=919) CBC W/PLT COUNT & AUTO [id number] 02:47:00 Test Item Value Reference Range Comments WHITE BLOOD CELL COUNT (BEAKER) (test oydp=075) 11.3 K/ L 3.5-10.5 RED BLOOD CELL COUNT (BEAKER) (test vkie=329) 3.51 M/ L 4.63-6.08 HEMOGLOBIN (BEAKER) (test hwpn=894) 10.8 GM/DL 13.7-17.5 HEMATOCRIT (BEAKER) (test fiho=747) 33.4 % 40.1-51.0 MEAN CORPUSCULAR VOLUME (BEAKER) (test irsg=295) 95.2 fL 79.0-92.2 MEAN CORPUSCULAR HEMOGLOBIN (BEAKER) (test 30.8 pg 25.7-32.2 nnyn=939) MEAN CORPUSCULAR HEMOGLOBIN CONC (BEAKER) (test 32.3 GM/DL 32.3-36.5 mltk=098) RED CELL DISTRIBUTION WIDTH (BEAKER) (test 14.2 % 11.6-14.4 zpxa=755) PLATELET COUNT (BEAKER) (test wdpt=132) 172 K/CU MM 150-450 MEAN PLATELET VOLUME (BEAKER) (test vkmf=440) 9.5 fL 9.4-12.4 NUCLEATED RED BLOOD CELLS (BEAKER) (test 0 /100 WBC 0-0 ewkv=743) NEUTROPHILS RELATIVE PERCENT (BEAKER) (test 70 % zokz=385) LYMPHOCYTES RELATIVE PERCENT (BEAKER) (test 10 % zxwt=463) MONOCYTES RELATIVE PERCENT (BEAKER) (test 10 % vxju=626) EOSINOPHILS RELATIVE PERCENT (BEAKER) (test 2 % ddjb=215) BASOPHILS RELATIVE PERCENT (BEAKER) (test 1 % yafd=772) NEUTROPHILS ABSOLUTE COUNT (BEAKER) (test 7.88 K/ L 1.78-5.38 ienc=519) LYMPHOCYTES ABSOLUTE COUNT (BEAKER) (test 1.16 K/ L 1.32-3.57 ilkv=952) MONOCYTES ABSOLUTE COUNT (BEAKER) (test 1.13 K/ L 0.30-0.82 oisu=689) EOSINOPHILS ABSOLUTE COUNT (BEAKER) (test 0.25 K/ L 0.04-0.54 ymmw=835) BASOPHILS ABSOLUTE COUNT (BEAKER) (test 0.07 K/ L 0.01-0.08 pyvs=019) IMMATURE GRANULOCYTES-RELATIVE PERCENT (BEAKER) 7 % 0-1 (test wgrs=4676) RAD, CHEST, 1 VIEW, NON [id number] 02:39:00Reason for exam:->advanced ET.Should this be performed [...] mediastinum: Stable contours. Additional findings: None. Signed: aLuren Christine Verified Date/Time: 01/18/2019 02:39:22 Reading Location: [address] Transitional Reading Room BLOOD GAS, [id number] 02:20:00 Test Item Value Reference Range Comments PH ARTERIAL (BEAKER) (test zwpw=054) 7.41 7.35-7.45 PCO2 ARTERIAL (BEAKER) (test rkrh=668) 39 mmHg 35-45 PO2 ARTERIAL (BEAKER) (test ryrz=098) 89 mmHg 80-90 O2 SATURATION ARTERIAL (BEAKER) (test yjpd=310) 96.8 % 96.0-97.0 HCO3 ARTERIAL (BEAKER) (test pujl=371) 24 mmol/L 21-29 BASE EXCESS ARTERIAL (BEAKER) (test ogov=214) -0.4 mmol/L -2.0-3.0 PATIENT TEMPERATURE (BEAKER) (test djsp=3807) 37.1 C FIO2 (BEAKER) (test ceto=7392) 50.0 % RAD, CHEST, 1 VIEW, NON [id number] 02:18:00Post-intubationReason for exam:-& gt;intubated, pneumoniaShould this be [...] Christine Verified Date/Time: 01/18/2019 02:18:06 Reading Location: [address] Transitional Reading Room
[2020-02-26] MEDS ORDERED: CIPROFLOXACIN HCL 500 MG TAB ONE (11:33)
[2020-02-26] MEDS ORDERED: CEFTRIAXONE/SWI 1gm 1 GM/10 ML SYR ONE (11:33)
[2020-02-26] MEDS ORDERED: NA CHLORIDE 0.9% 500 ML ONE (11:33)
[2020-02-26] MEDS ORDERED: LIDOCAINE VISCOUS 2% SOLN 15 ML UDC ONE (11:33)
[2020-02-26 11:41] LABS: Absolute Lymphocytes (CBC) 1.8 K/uL (0.7-4.9); Basophils % 0.5 % (0-1.3); Hematocrit 44.2 % (39.6-49.0); Lymphocytes % 26.5 % (15.3-44.8); MPV 7.7 fL (7.6-11.3); RBC Red Blood Cell Count 4.64 M/uL (4.33-5.43)
[2020-02-26 12:07] LABS: Albumin 3.3 g/dL (3.4-5.0); Bilirubin Total 0.5 mg/dL (0.2-1.0); Potassium 4.3 mmol/L (3.5-5.1); Protein, Total 8.5 g/dL (6.4-8.2)
--- NOTE | 2020-02-26 12:07 | ER ---
Nurse's Notes [facility] Name: Elbert Miller Age: 79 yrs Sex: Male : 1940 Arrival Date: 02/26/2020 Time: 10:44 Bed 19 Private MD: Diagnosis: Displacement of urinary (indwelling) catheter;Obesity, unspecified Presentation: 02/25 10:55 Chief complaint: Patient states: Is bed bound and has urinary catheter, catheter came ph out this morning when caregiver came to home to assist pt, joanne appeared to be split, pt able to urinate w/out catheter but urine was noted to be "tea-colored" so home health recommended that pt come to ED. Coronavirus screen: Proceed with normal triage. Patient denies a cough. Patient denies shortness of breath or difficulty breathing. Patient denies measured and/or subjective temperature greater than 100.4F prior to today's visit. Patient denies travel on a cruise ship or to a country the [facility]NOTE 3] currently lists as an affected area. Patient denies contact with known and/or suspected case of COVID-19. Ebola Screen: No symptoms or risks identified at this time. Initial Sepsis Screen: Does the patient meet any 2 criteria?. Initial Sepsis Screen: Does the patient have a suspected source of infection? No. Patient's initial sepsis screen is negative. Risk Assessment: Do you want to hurt yourself or someone else? Patient reports no desire to harm self or others. Onset of symptoms. 10:55 Method Of Arrival: EMS: [facility] ph 10:55 Acuity: [place] 3 ph Historical: - Allergies: 11:06 chlorpromazine HCl; ph 11:06 clopidogrel bisulfate; ph 11:06 Demerol; ph 11:06 fluoxetine HCl; ph 11:06 paroxetine HCl; ph 11:06 Sulfa (Sulfonamide Antibiotics); ph - Home Meds: 11:06 Ambien 10 mg Oral tab 1 tab once daily [Active]; Cipro 500 mg Oral tab 1 tab every 12 ph hours [Active]; Claritin-D 24 Hour 10-240 mg Oral Tb24 1 tab once daily [Active]; Coumadin 2 mg Oral tab 1 tab 6 days a week Wed-Wed, 1/2 tab on Wednesday [Active]; gabapentin 600 mg Oral tab 1 tab four times a day [Active]; hydromorphone 8 mg Oral tab 1 tab every 6 hours [Active]; hydromorphone 4 mg Oral tab 1 tab every 6 hours [Active]; Iron CR Oral [Active]; lorazepam 0.5 mg Oral tab 1 tab 3 times per day [Active]; metoprolol tartrate 25 mg Oral tab 1 tab 2 times per day [Active]; Multiple Vitamins Oral tab [Active]; nitrofurantoin macrocrystal 100 mg Oral cap 1 cap q 12 hours [Active]; [place] 10-325 mg Oral tab 1 tab every 6 hours [Active]; pantoprazole 40 mg Oral TbEC 1 tab once daily [Active]; phenazopyridine 200 mg Oral tab 1 tab 3 times per day [Active]; sertraline 50 mg Oral tab 1 tab once daily [Active]; tramadol 50 mg Oral tab 1 tab every 6 hours [Active]; trazodone 100 mg Oral tab 1 tab nightly [Active]; trimethoprim 100 mg Oral tab 1 tab daily [Active]; Vitamin D Oral [Active]; warfarin 5 mg Oral tab 1 tab once daily [Active]; Zantac 150 mg Oral tab 1 tab 2 times per day [Active]; - PMHx: 11:06 Arthritis; Atrial Fib; blood clot in lungs; CHF; Hernia; Herniated disc; Hypertension; ph lymphadema bilateral legs; neuropathy of right leg; PE; restless leg syndrome; spinal stenosis; - Immunization history:: Adult Immunizations unknown. - Social history:: Smoking status: unknown. - Family history:: not pertinent. Screenin:19 Abuse screen: Denies threats or abuse. Denies injuries from another. Nutritional ph screening: No deficits noted. Tuberculosis screening: No symptoms or risk factors identified. Fall Risk None identified. Assessment: 11:15 General: Appears in no apparent distress. comfortable, obese, Behavior is calm, ph cooperative, appropriate for age, Denies fever, feeling ill. Pain: Complains of pain in pelvis. Neuro: Level of Consciousness is awake, alert, obeys commands, Oriented to person, place, time, situation. Cardiovascular: Capillary refill < 3 seconds in bilateral fingers Patient's skin is warm and dry. Respiratory: Airway is patent Respiratory effort is even, unlabored, Respiratory pattern is regular, symmetrical. : Reports pain in suprapubic area. Derm: Skin is intact, Skin is pink, warm \\T\\ dry. Musculoskeletal: Circulation, motion, and sensation intact. Range of motion: intact in all extremities. Vital Signs: 10:55 BP 133 / 88; Pulse 87; Resp 18; Temp 98.0; Pulse Ox 99% on R/A; ph 12:30 BP 137 / 86; Pulse 81; Resp 18; Temp 98.0; Pulse Ox 99% on R/A; ph ED Course: 10:44 Patient arrived in ED. am2 10:52 Ross Mckenna MD is Attending Physician. deborah 10:55 Abby Gupta RN is Primary Nurse. ph 11:01 Triage completed. ph 11:19 Arm band placed on Patient placed in an exam room, on a stretcher. ph 11:20 Patient has correct armband on for positive identification. Bed in low position. Call ph light in reach. Side rails up X 1. Pulse ox on. NIBP on. Door closed. Noise minimized. Warm blanket given. 11:32 Initial lab(s) drawn, by me, sent to lab. Inserted saline lock: 22 gauge in left upper dh3 arm, using aseptic technique. Blood collected. 12:07 Joseline Alvarado MD is Referral Physician. [facility] 12:30 Hannah cath inserted, using sterile technique, 18 Fr., by mo, balloon inflated, to ph gravity drainage, urine specimen collected. returned clear yellow urine. Patient tolerated well. 13:30 No provider procedures requiring assistance completed. IV discontinued, intact, ph bleeding controlled, No redness/swelling at site. Pressure dressing applied. Administered Medications: 12:57 Drug: NS 0.9% 500 ml Route: IV; Rate: bolus; Site: left antecubital; ph 13:30 Follow up: Response: No adverse reaction; IV Status: Completed infusion; IV Intake: ph 300ml 12:57 Drug: Rocephin 1 grams Route: IV; Rate: per protocol; Site: left antecubital; ph 13:15 Follow up: Response: No adverse reaction; IV Status: Completed infusion ph 12:58 Drug: Lidocaine Gel 2 % 1 application Route: Mucous Membrane; ph 13:30 Follow up: Response: No adverse reaction ph 12:58 Drug: Cipro 500 mg Route: PO; ph 13:30 Follow up: Response: No adverse reaction ph Intake: 13:30 IV: 300ml; Total: 300ml. ph Outcome: 12:07 Discharge ordered by . deborah 13:32 Patient left the ED. ph 13:32 Discharged to home via [facility] ph 13:32 Condition: good 13:32 Discharge instructions given to patient, Instructed on discharge instructions, follow up and referral plans. medication usage, Demonstrated understanding of instructions, follow-up care, medications, Prescriptions given X 1. Addendum: 02/29/2020 19:51 Addendum: Culture Results: Positive urine culture. Bacteria is resistant to, has i w intermediate sensitivity, or is not tested against prescribed antibiotics. Report given to NAOMI for further evaluation and then to collection coordinator for follow up with patient. Phone call Attempt #1 called in prescription for Augmentin 875 1 tab PO BID X 10 days, no refills, called in to [facility]. Signatures: Ross Mckenna MD MD cha Williams, Irene, RN Abby Abdullahi RN RN Liyah Lopez Deanna 3
--- NOTE | 2020-02-26 12:07 | EDPHYS ---
Physician Documentation [facility] Name: Elbert Miller Age: 79 yrs Sex: Male : 1940 Arrival Date: 02/26/2020 Time: 10:44 Bed 19 Private MD: ED Physician Ross Mckenna HPI: 02/25 11:01 This 79 yrs old Male presents to ER via EMS with complaints of Problem With deborah Urinary Catheter. 11:01 The patient presents with a Hannah catheter problem, was pulled out accidentally. Onset: deborah The symptoms/episode began/occurred just prior to arrival, this morning. Modifying factors: The symptoms are alleviated by nothing, the symptoms are aggravated by nothing. Associated signs and symptoms: The patient has no apparent associated signs or symptoms. Severity of symptoms: At their worst the symptoms were mild, in the emergency department the symptoms are unchanged. The patient has not experienced similar symptoms in the past. Historical: - Allergies: 11:06 chlorpromazine HCl; ph 11:06 clopidogrel bisulfate; ph 11:06 Demerol; ph 11:06 fluoxetine HCl; ph 11:06 paroxetine HCl; ph 11:06 Sulfa (Sulfonamide Antibiotics); ph - Home Meds: 11:06 Ambien 10 mg Oral tab 1 tab once daily [Active]; Cipro 500 mg Oral tab 1 tab every 12 ph hours [Active]; Claritin-D 24 Hour 10-240 mg Oral Tb24 1 tab once daily [Active]; Coumadin 2 mg Oral tab 1 tab 6 days a week Wed-Wed, / tab on Wednesday [Active]; gabapentin 600 mg Oral tab 1 tab four times a day [Active]; hydromorphone 8 mg Oral tab 1 tab every 6 hours [Active]; hydromorphone 4 mg Oral tab 1 tab every 6 hours [Active]; Iron CR Oral [Active]; lorazepam 0.5 mg Oral tab 1 tab 3 times per day [Active]; metoprolol tartrate 25 mg Oral tab 1 tab 2 times per day [Active]; Multiple Vitamins Oral tab [Active]; nitrofurantoin macrocrystal 100 mg Oral cap 1 cap q 12 hours [Active]; [place] 10-325 mg Oral tab 1 tab every 6 hours [Active]; pantoprazole 40 mg Oral TbEC 1 tab once daily [Active]; phenazopyridine 200 mg Oral tab 1 tab 3 times per day [Active]; sertraline 50 mg Oral tab 1 tab once daily [Active]; tramadol 50 mg Oral tab 1 tab every 6 hours [Active]; trazodone 100 mg Oral tab 1 tab nightly [Active]; trimethoprim 100 mg Oral tab 1 tab daily [Active]; Vitamin D Oral [Active]; warfarin 5 mg Oral tab 1 tab once daily [Active]; Zantac 150 mg Oral tab 1 tab 2 times per day [Active]; - PMHx: 11:06 Arthritis; Atrial Fib; blood clot in lungs; CHF; Hernia; Herniated disc; Hypertension; ph lymphadema bilateral legs; neuropathy of right leg; PE; restless leg syndrome; spinal stenosis; - Immunization history:: Adult Immunizations unknown. - Social history:: Smoking status: unknown. - Family history:: not pertinent. ROS: 11:01 Constitutional: Negative for fever, chills, and weight loss, Eyes: Negative for injury, deborah pain, redness, and discharge, ENT: Negative for injury, pain, and discharge, Neck: Negative for injury, pain, and swelling, Cardiovascular: Negative for chest pain, palpitations, and edema, Respiratory: Negative for shortness of breath, cough, wheezing, and pleuritic chest pain, Abdomen/GI: Negative for abdominal pain, nausea, vomiting, diarrhea, and constipation, Back: Negative for injury and pain, MS/Extremity: Negative for injury and deformity, Skin: Negative for injury, rash, and discoloration, Neuro: Negative for headache, weakness, numbness, tingling, and seizure, Psych: Negative for depression, anxiety, suicide ideation, homicidal ideation, and hallucinations, Allergy/Immunology: Negative for hives, rash, and allergies, Endocrine: Negative for neck swelling, polydipsia, polyuria, polyphagia, and marked weight changes, Hematologic/Lymphatic: Negative for swollen nodes, abnormal bleeding, and unusual bruising. 11:01 : Positive for urinary symptoms, foul smelling urine. Exam: 11:01 Constitutional: This is a well developed, well nourished patient who is awake, alert, deborah and in no acute distress. Head/Face: Normocephalic, atraumatic. Eyes: Pupils equal round and reactive to light, extra-ocular motions intact. Lids and lashes normal. Conjunctiva and sclera are non-icteric and not injected. Cornea within normal limits. Periorbital areas with no swelling, redness, or edema. ENT: Nares patent. No nasal discharge, no septal abnormalities noted. Tympanic membranes are normal and external auditory canals are clear. Oropharynx with no redness, swelling, or masses, exudates, or evidence of obstruction, uvula midline. Mucous membranes moist. Neck: Trachea midline, no thyromegaly or masses palpated, and no cervical lymphadenopathy. Supple, full range of motion without nuchal rigidity, or vertebral point tenderness. No Meningismus. Chest/axilla: Normal chest wall appearance and motion. Nontender with no deformity. No lesions are appreciated. Cardiovascular: Regular rate and rhythm with a normal S1 and S2. No gallops, murmurs, or rubs. Normal PMI, no JVD. No pulse deficits. Respiratory: Lungs have equal breath sounds bilaterally, clear to auscultation and percussion. No rales, rhonchi or wheezes noted. No increased work of breathing, no retractions or nasal flaring. Abdomen/GI: Soft, non-tender, with normal bowel sounds. No distension or tympany. No guarding or rebound. No evidence of tenderness throughout. Back: No spinal tenderness. No costovertebral tenderness. Full range of motion. Skin: Warm, dry with normal turgor. Normal color with no rashes, no lesions, and no evidence of cellulitis. MS/ Extremity: Pulses equal, no cyanosis. Neurovascular intact. Full, normal range of motion. Neuro: Awake and alert, GCS 15, oriented to person, place, time, and situation. Cranial nerves II-XII grossly intact. Motor strength 5/5 in all extremities. Sensory grossly intact. Cerebellar exam normal. Normal gait. Psych: Awake, alert, with orientation to person, place and time. Behavior, mood, and affect are within normal limits. 11:01 : CVA tenderness, is absent, Male external genitalia: normal, Bladder: is normal, Sexual behavior: the patient is not sexually active. Vital Signs: 10:55 BP 133 / 88; Pulse 87; Resp 18; Temp 98.0; Pulse Ox 99% on R/A; ph 12:30 BP 137 / 86; Pulse 81; Resp 18; Temp 98.0; Pulse Ox 99% on R/A; ph MDM: 10:52 Patient medically screened. [facility] 11:16 Data reviewed: vital signs, nurses notes, lab test result(s), CBC, electrolytes, [facility] hepatic panel, urinalysis. 02/25 11:00 Order name: CBC with Diff; Complete Time: 12:06 [facility] 02/25 11:00 Order name: Comprehensive Metabolic Panel; Complete Time: 12:10 [facility] 02/25 11:00 Order name: Urine Culture [facility] 02/25 13:06 Order name: Urine Dipstick--Ancillary (enter results) 02/25 11:00 Order name: Urine Dipstick-Ancillary (obtain specimen); Complete Time: 12:29 [facility] 02/25 11:00 Order name: Hannah; Complete Time: 12:29 [facility] Administered Medications: 12:57 Drug: NS 0.9% 500 ml Route: IV; Rate: bolus; Site: left antecubital; ph 13:30 Follow up: Response: No adverse reaction; IV Status: Completed infusion; IV Intake: ph 300ml 12:57 Drug: Rocephin 1 grams Route: IV; Rate: per protocol; Site: left antecubital; ph 13:15 Follow up: Response: No adverse reaction; IV Status: Completed infusion ph 12:58 Drug: Lidocaine Gel 2 % 1 application Route: Mucous Membrane; ph 13:30 Follow up: Response: No adverse reaction ph 12:58 Drug: Cipro 500 mg Route: PO; ph 13:30 Follow up: Response: No adverse reaction ph Disposition: 02/26/20 12:07 Discharged to Home. Impression: Displacement of urinary (indwelling) catheter, Obesity, unspecified. - Condition is Stable. - Discharge Instructions: Dysuria, Hannah Catheter Care, Adult, Obesity, Adult, Hannah Catheter Care, Adult, Putf-rh-Dyoe, Obesity, Adult, Kiks-gt-Uohu. - Prescriptions for Cipro 500 mg Oral Tablet - take 1 tablet by ORAL route every 12 hours for 7 days; 14 tablet. - Medication Reconciliation Form, Thank You Letter, Antibiotic Education, Prescription Opioid Use, SBAR form form. - Follow up: Private Physician; When: 2 - 3 days; Reason: Recheck today's complaints, Continuance of care, Re-evaluation by your physician. Follow up: Joseline Alvarado; When: 2 - 3 days; Reason: Recheck today's complaints, Continuance of care, Re-evaluation by your physician. - Problem is new. - Symptoms have improved. Signatures: Dispatcher [employer] Ross Braxton MD MD cha Hall, Patricia RN RN ph Corrections: (The following items were deleted from the chart) 13:32 12:07 02/26/2020 12:07 Discharged to Home. Impression: Displacement of urinary ph (indwelling) catheter; Obesity, unspecified. Condition is Stable. Discharge Instructions: Hannah Catheter Care, Adult, Obesity, Adult, Hannah Catheter Care, Adult, [id number], Obesity, Adult, Tcnk-[id number], Dysuria. Prescriptions for Cipro 500 mg Oral Tablet - take 1 tablet by ORAL route every 12 hours for 7 days; 14 tablet. and Forms are Medication Reconciliation Form, Thank You Letter, Antibiotic Education, Prescription Opioid Use. Follow up: Private Physician; When: 2 - 3 days; Reason: Recheck today's complaints, Continuance of care, Re-evaluation by your physician. Follow up: Joseline Alvarado; When: 2 - 3 days; Reason: Recheck today's complaints, Continuance of care, Re-evaluation by your physician. Problem is new. Symptoms have improved. deborah
[2020-02-26 13:14] LABS: Urine Blood 1+ (NEG); Urine Glucose NEGATIVE (NEG); Urine Protein NEGATIVE (NEG)
[2020-02-26 13:39] VITALS: BP 133/88; TEMP 98; O2SAT 99
== END 2020-02-26 13:32 | disposition home or self-care (01) ==
LOC: ER 10:42
DX: T83.028A Displacement of other urinary catheter, initial encounter (principal); E66.9 Obesity, unspecified; I10 Essential (primary) hypertension; I48.91 Unspecified atrial fibrillation; I50.9 Heart failure, unspecified; Z79.01 Long term (current) use of anticoagulants; Z88.2 Allergy status to sulfonamides; Z88.5 Allergy status to narcotic agent; Z88.8 Allergy status to other drugs, medicaments and biological substances
CPT/HCPCS: 87088; 85025; 87086; 36415; 81003; 80053; J0696; J7040; 51702; 87077; 87186; 96365; 99284

== ENCOUNTER 2021-09-24 15:50 | Inpatient (IN) | payer OTHER ==
[2021-09-24 16:47] LABS: Protime INR 3.17
[2021-09-24 16:54] LABS: Absolute Lymphocytes (CBC) 1.4 K/uL (0.7-4.9); Basophils % 0.4 % (0-1.3); Hematocrit 38.2 % (39.6-49.0); Lymphocytes % 17.8 % (15.3-44.8); MPV 7.1 fL (7.6-11.3); RBC Red Blood Cell Count 4.01 M/uL (4.33-5.43)
[2021-09-24 17:02] LABS: ALT/SGPT 35 U/L (12-78); AST/SGOT 34 U/L (15-37); Albumin 2.4 g/dL (3.4-5.0); Alkaline Phosphatase 109 U/L (45-117); BUN Blood Urea Nitrogen 30 mg/dL (7-18); Bicarbonate 28 mmol/L (21-32); Bilirubin Direct 0.2 mg/dL (0-0.2); Bilirubin Total 0.5 mg/dL (0.2-1.0); Glucose Level 195 mg/dL (74-106); Lipase 52 U/L (73-393); Magnesium 2.3 mg/dL (1.8-2.4); NT PRO-BNP 1262 pg/mL (<450); Potassium 4.8 mmol/L (3.5-5.1); Protein, Total 8.1 g/dL (6.4-8.2); Sodium Level 129 mmol/L (136-145); Troponin (Emerg Dept Use Only) < 0.02 ng/mL (0.0-0.045)
--- NOTE | 2021-09-24 17:08 | RAD REPORT ---
EXAM DESCRIPTION: RAD - Chest Single View - 09/24/2021 5:00 pm CLINICAL HISTORY: DYSPNEA COMPARISON: Chest Single View dated 12/13/2019; Chest Single View dated 07/12/2019; Chest Single View dated 01/17/2019; Chest Single View dated 01/16/2019 FINDINGS: Lines: None. Lungs: Diffuse pulmonary opacities bilaterally. Pleural: Layering bilateral pleural effusions. Cardiac: Cardiomegaly. Bones: No acute fractures. Other: IMPRESSION: Findings most consistent with pulmonary edema with bilateral pleural effusions.
[2021-09-24 17:56] LABS: Urine Blood Trace-intact (Negative); Urine Glucose Negative (Negative); Urine Protein Negative (Negative)
--- NOTE | 2021-09-24 17:57 | RAD REPORT ---
EXAM DESCRIPTION: CTAbdomen Pelvis W Contrast - 09/24/2021 5:37 pm CLINICAL HISTORY: ABD PAIN COMPARISON: Abdomen Pelvis W Contrast dated 08/21/2016; CT ABD PELVIS W CONTRAST dated 07/08/2014; C T ABD PELVIS W CONTRAST dated 06/25/2014 TECHNIQUE: CT of the abdomen and pelvis was performed. All CT scans are performed using dose optimization technique as appropriate and may include automated exposure control or mA/KV adjustment according to patient size. FINDINGS: Lower chest: Bilateral pleural effusions. Cardiomegaly. Coronary artery calcifications. De pendent atelectasis. Liver: Hepatic steatosis. Mild intrahepatic biliary duct dilatation is likely related to the postchol ecystectomy state. Biliary: Cholecystectomy. Extrahepatic biliary ductal dilatation may be related to the postcholecyste ctomy state. Stomach: Surgical changes along the stomach. Duodenum: No significant focal abnormality. Pancreas: No significant abnormality. Spleen: No significant abnormality. Adrenal: No suspicious lesions. Kidney/ureter: No hydronephrosis. No renal calculi. Retroperitoneum: No retroperitoneal adenopathy. Vascular: IVC filter. Atherosclerosis. No aneurysm. Bowel: No significant focal abnormality. Peritoneum: No ascites or free air. Pronounced abdominal wall laxity. Bladder: Trace bladder gas which is likely due to instrumentation. Reproductive: No adnexal masses. Bones: No acute fracture. Heterotopic ossification adjacent to the left iliac bone is unchanged. Mult ilevel degenerative changes are present in the spine. Other: n/a IMPRESSION: No acute intra-abdominal or pelvic finding. Bilateral pleural effusions and probably und erlying atelectasis which may be secondary to heart failure.
[2021-09-24] MEDS ORDERED: FUROSEMIDE 20 MG/ 2ML VIAL ONE (18:01)
[2021-09-24] MEDS ORDERED: CEFTRIAXONE 1000 MG/VIAL ONE (18:01)
--- NOTE | 2021-09-24 18:07 | ER ---
Nurse's Notes [facility] Name: Elbert Miller Age: 81 yrs Sex: Male : 1940 Arrival Date: 09/24/2021 Time: 16:00 Bed 3 Private MD: Diagnosis: Unspecified combined systolic (congestive) and diastolic (congestive) heart failure;Hypoxemia;UTI/ Urinary tract infection, site not specified Presentation: 09/24 15:50 Chief complaint: EMS states: pt from home. home nurse noticed decreased urine output to tw2 his sims recently as well as increased edema all over. vs stable. 20 g Right FA. pt had an episode of diarrhea all over himself. pt has large abdominal hernia that hangs mostly to the left of his body. sims was in place a week ago per pt. pt c/o increased sob. Coronavirus screen: At this time, the client does not indicate any symptoms associated with coronavirus-19. Ebola Screen: Patient denies travel to an Ebola-affected area in the 21 days before illness onset. Initial Sepsis Screen: Does the patient meet any 2 criteria? RR > 20 per min. No. Patient's initial sepsis screen is negative. Does the patient have a suspected source of infection? No. Patient's initial sepsis screen is negative. Risk Assessment: Do you want to hurt yourself or someone else? Patient reports no desire to harm self or others. Onset of symptoms was September 24, 2021. 15:50 Method Of Arrival: EMS: [facility] tw2 15:50 Acuity: [place] 2 tw2 16:28 Care prior to arrival: IV initiated. 20 GA, in the right forearm. tw2 16:57 Note pt arrived with urinary sims catheter in place. pt states "she put it in on on tw2 Wednesday". Triage Assessment: 15:50 General: Appears unkempt, morbidly obese with large abdominal protrusion that hangs off tw2 to the LEFT side. pt reports several hernias. Behavior is cooperative, appropriate for age. Pain: Complains of pain in abdomen. EENT: No signs and/or symptoms were reported regarding the EENT system. Neuro: Level of Consciousness is awake, alert, obeys commands, Oriented to person, place, situation. Cardiovascular: Patient's skin is warm and dry. Cardiovascular: Edema is 3+ to left midcalf, left ankle, right midcalf and right ankle. Respiratory: Reports shortness of breath at rest. GI: Abdomen is distended, noted to have ascites, Reports "hernia". : to gravity drainage. Derm: Skin is dry, skin scaling noted to LE with edema and discoloration noted. pt requests his pillow case remain in his abdominal folds. Musculoskeletal: Circulation, motion, and sensation intact. Historical: - Allergies: 16:30 Sulfa (Sulfonamide Antibiotics); tw2 16:30 paroxetine HCl; tw2 16:30 fluoxetine HCl; tw2 16:30 Demerol; tw2 16:30 clopidogrel bisulfate; tw2 16:30 chlorpromazine HCl; tw2 - Home Meds: 16:30 Ambien 10 mg Oral tab 1 tab once daily [Active]; Cipro 500 mg Oral tab 1 tab every 12 tw2 hours [Active]; Claritin-D 24 Hour 10-240 mg Oral Tb24 1 tab once daily [Active]; 16:53 Coumadin 2 mg Oral tab 1 tab 6 days a week Wed-Wed, 1/2 tab on Wednesday [Active]; tw2 gabapentin 600 mg Oral tab 1 tab four times a day [Active]; hydromorphone 8 mg Oral tab 1 tab every 6 hours [Active]; hydromorphone 4 mg Oral tab 1 tab every 6 hours [Active]; Iron CR Oral [Active]; lorazepam 0.5 mg Oral tab 1 tab 3 times per day [Active]; sertraline 50 mg Oral tab 1 tab once daily [Active]; metoprolol tartrate 25 mg Oral tab 1 tab 2 times per day [Active]; Multiple Vitamins Oral tab [Active]; nitrofurantoin macrocrystal 100 mg Oral cap 1 cap q 12 hours [Active]; [place] 10-325 mg Oral tab 1 tab every 6 hours [Active]; pantoprazole 40 mg Oral chew 1 tab once daily [Active]; tramadol 50 mg Oral tab 1 tab every 6 hours [Active]; trazodone 100 mg Oral tab 1 tab nightly [Active]; trimethoprim 100 mg Oral tab 1 tab daily [Active]; phenazopyridine 200 mg Oral tab 1 tab 3 times per day [Active]; Vitamin D Oral [Active]; warfarin 5 mg Oral tab 1 tab once daily [Active]; Zantac 150 mg Oral tab 1 tab 2 times per day [Active]; - PMHx: 16:53 Arthritis; Atrial Fib; blood clot in lungs; CHF; Hernia; Herniated disc; Hypertension; tw2 lymphadema bilateral legs; neuropathy of right leg; PE; restless leg syndrome; spinal stenosis; - Immunization history:: Adult Immunizations Client reports receiving the 2nd dose of the Covid vaccine. - Social history:: Smoking status: . - Family history:: not pertinent. - Hospitalizations: : No recent hospitalization is reported. Screenin:56 Abuse screen: Denies threats or abuse. Nutritional screening: No deficits noted. tw2 Tuberculosis screening: No symptoms or risk factors identified. Fall Risk Secondary diagnosis (15 points) impaired mobility, IV access (20 points). Gait- Impaired (20 pts.). Assessment: 16:55 Reassessment: X-Ray at the bedside. ap3 Vital Signs: 15:50 BP 105 / 74; Pulse 68; Resp 24; Temp 97.6(O); Pulse Ox 89% on R/A; Weight 199.58 kg (R);tw2 16:58 BP 94 / 72 LA; Pulse 63; Pulse Ox 100% ; ap3 17:52 BP 141 / 68 LA (auto/); Pulse 64; Resp 19; Pulse Ox 100% on R/A; ap3 18:29 BP 112 / 81; Pulse 57; Resp 20; Pulse Ox 95% on 3 lpm NC; tw2 20:28 BP 113 / 87; Pulse 67; Resp 18; Pulse Ox 98% on R/A; df1 21:25 BP 111 / 69; Pulse 75; Resp 24; Pulse Ox 94% on 3 lpm NC; lc1 15:50 pt placed on 2L nc at this time tw2 ED Course: 16:00 Patient arrived in ED. rn 16:00 Cliff Duarte MD is Attending Physician. rn 16:22 Sophia Castelan RN is Primary Nurse. ss 16:22 Primary Nurse role handed off by Sophia Castelan RN tw2 16:22 Narcisa Bush RN is Primary Nurse. tw2 16:28 Triage completed. tw2 16:56 Arm band placed on. tw2 16:59 Patient has correct armband on for positive identification. Placed in gown. Bed in low ap3 position. Call light in reach. Side rails up X2. library monitor on. Pulse ox on. NIBP on. Door closed. Noise minimized. Warm blanket given. Head of bed elevated. Turned to left side. Cleaned of bowel movement he had prior to arrival Assisting with the bed change and clean up was Narcisa RN, Liyah RN, JULIET Bsasett, [place], and Montez. Patient tolerated well, and vital signs remained within normal limits. . 16:59 Arm band placed on Door closed. Noise minimized. Warm blanket given. Head of bed tw2 elevated. Turned to left side. Cleaned of bowel movement he had prior to arrival. 17:00 XRAY CXR (1 view) In Process Unspecified. EDMS 17:25 Maintain EMS IV. Dressing intact. Good blood return noted. Site clean \\T\\ dry. Gauge \\T\\ tw 2 site: 20 g RIGHT FA. 17:37 CT Abd/Pelvis - IV Contrast Only In Process Unspecified. EDMS 17:[address] back [address]. ap3 17:52 COVID swab sent to lab. ap3 17:57 Urine Culture Sent. tw2 17:57 Urine Microscopic Only Sent. tw2 18:05 Jose Gomez MD is Hospitalizing Provider. rn 19:19 BMP Sent. df1 19:19 Blood Culture Adult (2) Sent. df1 19:19 CBC with Diff Sent. df1 19:19 Hepatic Function Sent. df1 21:11 No provider procedures requiring assistance completed. Patient admitted, IV remains in lc1 place. Administered Medications: 17:54 CANCELLED (Duplicate Order): Lasix (furosemide) 40 mg IVP once; give over 2 minutes rn 18:08 Drug: Lasix (furosemide) 20 mg Route: IVP; Site: right forearm; tw2 18:29 Follow up: Response: No adverse reaction tw2 18:12 Drug: Rocephin (cefTRIAXone) 1 grams Route: IV; Rate: calculated rate; Site: right tw2 forearm; 18:22 Follow up: IV Status: Completed infusion; IV Intake: 10ml tw2 18:27 Follow up: IV Status: Completed infusion ap3 Intake: 18:22 IV: 10ml; Total: 10ml. tw2 Output: 17:10 Urine: 400ml (Sims); Total: 400ml. tw2 Outcome: 18:06 Decision to Hospitalize by Provider. rn 21:11 Condition: good [facility] 21:11 Instructed on the need for admit. 21:20 Admitted to Med/surg accompanied by tech, room 203, with oxygen, Report called to [facility] [place] 21:47 Patient left the ED. [facility] Signatures: Dispatcher [employer] EDMS Cliff Duarte MD MD rn Smirch, Shelby, RN RN ss Calhoun, Lisa [facility] Narcisa Bush RN RN 2 Liyah Lacey RN RN ap3 Maxine Patton df1 Corrections: (The following items were deleted from the chart) 18: 16:59 Door closed. Noise minimized. Warm blanket given. Head of bed elevated. Turned to tw2 left side. Cleaned of bowel movement he had prior to arrival ap3 21:12 21:11 Admitted to [place] [address] 21:11 Admitted to Med/surg accompanied by tech, room 203, [place] [address]
--- NOTE | 2021-09-24 18:07 | EDPHYS ---
Physician Documentation [facility] Name: Elbert Miller Age: 81 yrs Sex: Male : 1940 Arrival Date: 09/24/2021 Time: 16:00 Bed 3 Private MD: ED Physician Cliff Duarte HPI: 09/24 16:04 This 81 yrs old Male presents to ER via Unassigned with complaints of sob, rn abd pain. 16:04 The patient has shortness of breath at rest. Onset: The symptoms/episode began/occurred rn 3 day(s) ago. Duration: The symptoms are intermittent. The patient's shortness of breath is aggravated by supine position, talking, is alleviated by application of supplemental oxygen. Associated signs and symptoms: Pertinent positives: non-productive cough, Pertinent negatives: fever, hemoptysis, loss of consciousness. Severity of symptoms: At their worst the symptoms were mild in the emergency department the symptoms are unchanged. The patient has experienced similar episodes in the past. The patient has not recently seen a physician. 16:04 Patient reports a few days of shortness of breath and dry cough. Also reports abdominal rn pain with constipation, although EMS noted diarrhea when patient was picked up and covered in feces. Denies vomiting. Denies fever. No trauma. States is not on home oxygen.. Historical: - Allergies: 16:30 Sulfa (Sulfonamide Antibiotics); tw2 16:30 paroxetine HCl; tw2 16:30 fluoxetine HCl; tw2 16:30 Demerol; tw2 16:30 clopidogrel bisulfate; tw2 16:30 chlorpromazine HCl; tw2 - Home Meds: 16:30 Ambien 10 mg Oral tab 1 tab once daily [Active]; Cipro 500 mg Oral tab 1 tab every 12 tw2 hours [Active]; Claritin-D 24 Hour 10-240 mg Oral Tb24 1 tab once daily [Active]; 16:53 Coumadin 2 mg Oral tab 1 tab 6 days a week Wed-Wed, 1/2 tab on Wednesday [Active]; tw2 gabapentin 600 mg Oral tab 1 tab four times a day [Active]; hydromorphone 8 mg Oral tab 1 tab every 6 hours [Active]; hydromorphone 4 mg Oral tab 1 tab every 6 hours [Active]; Iron CR Oral [Active]; lorazepam 0.5 mg Oral tab 1 tab 3 times per day [Active]; sertraline 50 mg Oral tab 1 tab once daily [Active]; metoprolol tartrate 25 mg Oral tab 1 tab 2 times per day [Active]; Multiple Vitamins Oral tab [Active]; nitrofurantoin macrocrystal 100 mg Oral cap 1 cap q 12 hours [Active]; [place] 10-325 mg Oral tab 1 tab every 6 hours [Active]; pantoprazole 40 mg Oral chew 1 tab once daily [Active]; tramadol 50 mg Oral tab 1 tab every 6 hours [Active]; trazodone 100 mg Oral tab 1 tab nightly [Active]; trimethoprim 100 mg Oral tab 1 tab daily [Active]; phenazopyridine 200 mg Oral tab 1 tab 3 times per day [Active]; Vitamin D Oral [Active]; warfarin 5 mg Oral tab 1 tab once daily [Active]; Zantac 150 mg Oral tab 1 tab 2 times per day [Active]; - PMHx: 16:53 Arthritis; Atrial Fib; blood clot in lungs; CHF; Hernia; Herniated disc; Hypertension; tw2 lymphadema bilateral legs; neuropathy of right leg; PE; restless leg syndrome; spinal stenosis; - Immunization history:: Adult Immunizations Client reports receiving the 2nd dose of the Covid vaccine. - Social history:: Smoking status: . - Family history:: not pertinent. - Hospitalizations: : No recent hospitalization is reported. ROS: 16:04 Constitutional: Negative for fever, chills, and weight loss, Eyes: Negative for injury, rn pain, redness, and discharge, Neck: Negative for injury, pain, and swelling, Cardiovascular: Positive for edema Respiratory: Positive for dry cough and shortness of breath Abdomen/GI: Positive for abdominal pain and constipation MS/Extremity: Negative for injury and deformity, Skin: Negative for injury, rash, and discoloration, Neuro: Negative for headache, weakness, numbness, tingling, and seizure. Exam: 16:04 Constitutional: Extremely overweight patient with large pannus, in no acute distress rn Head/Face: Normocephalic, atraumatic. Eyes: Periorbital areas with no swelling, redness, or edema. Cardiovascular: Regular rate, irregular rhythm. No pulse deficits Respiratory: Mild tachypnea with crackles bilateral bases Abdomen/GI: Soft, non-tender, no masses Skin: Warm, dry MS/ Extremity: Pulses equal, no cyanosis. Neurovascular intact. Equal circumference. 3+ pitting edema bilateral lower extremities Neuro: Awake and alert, GCS 15 17:23 ECG was reviewed by the Attending Physician. rn Vital Signs: 15:50 BP 105 / 74; Pulse 68; Resp 24; Temp 97.6(O); Pulse Ox 89% on R/A; Weight 199.58 kg (R);tw2 16:58 BP 94 / 72 LA; Pulse 63; Pulse Ox 100% ; ap3 17:52 BP 141 / 68 LA (auto/); Pulse 64; Resp 19; Pulse Ox 100% on R/A; ap3 18:29 BP 112 / 81; Pulse 57; Resp 20; Pulse Ox 95% on 3 lpm NC; tw2 20:28 BP 113 / 87; Pulse 67; Resp 18; Pulse Ox 98% on R/A; df1 21:25 BP 111 / 69; Pulse 75; Resp 24; Pulse Ox 94% on 3 lpm NC; lc1 15:50 pt placed on 2L nc at this time tw2 MDM: 16:00 Patient medically screened. rn 18:04 Differential diagnosis: CHF exacerbation, Myocardial Infarction pneumonia, Pneumothorax rn pulmonary edema, Sepsis UTI. Data reviewed: vital signs, nurses notes, lab test result(s), EKG, radiologic studies, CT scan, plain films, and as a result, I will admit patient. 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 Interpretation: hypoxia. Plan: O2 by NC applied. Counseling: I had a detailed discussion with the patient and/or guardian regarding: the historical points, exam findings, and any diagnostic results supporting the discharge/admit diagnosis, lab results, radiology results, the need for further work-up and treatment in the hospital. Response to treatment: the patient's symptoms have mildly improved after treatment, and as a result, I will admit patient. Admission orders: after a detailed discussion of the patient's condition and case, the admit orders are written by me. 09/24 16:02 Order name: BMP rn 09/24 16:02 Order name: Blood Culture Adult (2) rn 09/24 16:02 Order name: CBC with Diff rn 09/24 16:02 Order name: Hepatic Function rn 09/24 16:02 Order name: Lipase; Complete Time: 17:19 rn 09/24 16:02 Order name: Magnesium; Complete Time: 17:19 rn 09/24 16:02 Order name: NT PRO-BNP; Complete Time: 17:19 rn 09/24 16:02 Order name: PT-INR; Complete Time: 17:19 rn 09/24 16:02 Order name: Ptt, Activated; Complete Time: 17:19 rn 09/24 16:02 Order name: Troponin (emerg Dept Use Only); Complete Time: 17:19 rn 09/24 16:02 Order name: Urine Culture 09/24 16:02 Order name: Urine Microscopic Only 09/24 16:02 Order name: Procalcitonin; Complete Time: 17:19 09/24 16:02 Order name: Lactate; Complete Time: 17:19 09/24 16:02 Order name: XRAY CXR (1 view); Complete Time: 17:19 09/24 16:02 Order name: EKG; Complete Time: 16:02 09/24 16:02 Order name: Cardiac monitoring; Complete Time: 16:46 09/24 16:02 Order name: EKG - Nurse/Tech; Complete Time: 17:57 09/24 16:02 Order name: IV Saline Lock; Complete Time: 16:46 09/24 16:02 Order name: COVID-19 SARS RT PCR (Document "Date of Onset" if Symptomatic) 09/24 16:02 Order name: Basic Metabolic Panel; Complete Time: 17:19 [facility] 09/24 16:02 Order name: Blood Culture [facility] 09/24 16:02 Order name: CBC with Automated Diff; Complete Time: 17:19 [facility] 09/24 16:02 Order name: Liver (Hepatic) Function; Complete Time: 17:19 [facility] 09/24 16:04 Order name: CT Abd/Pelvis - IV Contrast Only; Complete Time: 18:03 09/24 17:56 Order name: Urine Dipstick-Ancillary; Complete Time: 17:57 [facility] 09/24 18:34 Order name: CONS Physician Consult; Complete Time: 19:19 [facility] 09/24 16:02 Order name: Labs collected and sent; Complete Time: 16:46 rn 09/24 16:02 Order name: O2 Per Protocol; Complete Time: 16:46 rn 09/24 16:02 Order name: O2 Sat Monitoring; Complete Time: 16:46 rn 09/24 16:02 Order name: Urine Dipstick-Ancillary (obtain specimen); Complete Time: 18:42 rn EC:23 Rate is 66 beats/min. Rhythm is irregularly irregular. QRS Irma is Normal. QRS interval rn is normal. QT interval is normal. No Q waves. T waves are Normal. No ST changes noted. Clinical impression: Atrial Fibrillation. Interpreted by me. Reviewed by me. Administered Medications: 17:54 CANCELLED (Duplicate Order): Lasix (furosemide) 40 mg IVP once; give over 2 minutes rn 18:08 Drug: Lasix (furosemide) 20 mg Route: IVP; Site: right forearm; tw2 18:29 Follow up: Response: No adverse reaction tw2 18:12 Drug: Rocephin (cefTRIAXone) 1 grams Route: IV; Rate: calculated rate; Site: right tw2 forearm; 18:22 Follow up: IV Status: Completed infusion; IV Intake: 10ml tw2 18:27 Follow up: IV Status: Completed infusion ap3 Disposition Summary: 09/24/21 18:06 Hospitalization Ordered Hospitalization Status: Inpatient Admission rn Provider: Jose Gomez rn Location: Telemetry/[facility] (Inpatient) rn Condition: Stable rn Problem: new rn Symptoms: have improved rn Bed/Room Type: Standard rn Room Assignment: 203(09/24/21 21:04) Diagnosis - Unspecified combined systolic (congestive) and diastolic (congestive) heart failure rn - Hypoxemia rn - UTI/ Urinary tract infection, site not specified rn Forms: - Medication Reconciliation Form rn - SBAR form rn Signatures: Dispatcher [employer] EDCliff Bryson MD MD rn Garcia, Cindy, RN RN Narcisa Pisano RN RN tw2 Liyah Lacey RN ap3 Corrections: (The following items were deleted from the chart) 16:08 16:04 Constitutional: Negative for fever, chills, and weight loss, Eyes: Negative for rn injury, pain, redness, and discharge, Neck: Negative for injury, pain, and swelling, Cardiovascular: Positive for edema Respiratory: Positive for dry cough and shortness of breath Abdomen/GI: Positive for abdominal pain and constipation MS/Extremity: Negative for injury and deformity, Skin: Negative for injury, rash, and discoloration, Neuro: Negative for headache, weakness, numbness, tingling, and seizure, rn 17:54 17:53 Lasix (furosemide) 40 mg IVP once; give over 2 minutes ordered. rn rn 21:04 18:06 rn dedrick
[2021-09-24 18:12] LABS: Urine Bacteria >50 /HPF (NONE SEEN); Urine RBC <5 /HPF (NONE SEEN)
[2021-09-24] MEDS ORDERED: ACETAMINOPHEN 500 MG TAB PO PRN (22:28)
[2021-09-24] MEDS ORDERED: ALBUTEROL 2.5 MG/3 ML NEB SOL NEB PRN (22:28)
[2021-09-24] MEDS ORDERED: ONDANSETRON 4 MG/2 ML VIAL IV PRN (22:28)
[2021-09-24] MEDS: INSULIN -REGULAR HUMAN 50 UNIT/0.5 ML ML SQ SCH (22:28)
--- NOTE | 2021-09-24 23:05 | P.HP ---
Certification for Inpatient Patient admitted to: Inpatient With expected LOS: <2 Midnights Patient will require the following post-hospital care: None Practitioner: I am a practitioner with admitting privileges, knowledge of patient current condition, hospital course, and medical plan of care. 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 His chief complaint is constipation for the past week and abdominal pain, which has now turned to diarrhea. He also reports hallucinations. He reports PND, orthopnea, cough, wheezing, SOB, FINK, lethargy and worsening edema. He presented with sats of 89% on RA. Na 129, Cl 95, BUN 30, Cr 1.31, GFR 53, Glu 195, BNP 1262. ABG pending. CXR IMPRESSION: Findings most consistent with pulmonary edema with bilateral pleural effusions. CTAP IMPRESSION: No acute intra-abdominal or pelvic finding. Bilateral pleural effusions and probably underlying atelectasis which may be secondary to heart failure. Allergies Sulfa (Sulfonamide Antibiotics) Allergy (Verified 07/16/17 03:10) Hives Home Medications: Ascorbic Acid [Vitamin C*] 1,000 mg PO DAILY 12/13/19 Ferrous Sulfate [Iron] 325 mg PO DAILY 12/13/19 Gabapentin [Neurontin] 600 mg PO QID 12/13/19 L. Acidophilus/Dig Enz Cmb 5 [Probiotic-Digestive Enzymes] 1 each PO DAILY 12/13/19 Mv-Mins/Folic/Lycopene/Ginkgo [One Daily Men's 50+ Tablet] 1 each PO DAILY 12/13/19 Sertraline HCl 50 mg PO DAILY 12/13/19 Trazodone HCl [Desyrel] 100 mg PO BEDTIME 12/13/19 Warfarin Sodium [Coumadin*] 3 mg PO DAILY 5 PM 12/13/19 Amox/Clavulanate [Augmentin 875-125 Tab] 875 mg PO BID #10 tab 12/16/19 Codeine/APAP [Tylenol W/Codeine #3 tab] 1 tab PO Q6HP PRN #12 tab 12/16/19 Oxybutynin Chloride [Ditropan*] 5 mg PO BID #10 tab 12/16/19 - Past Medical/Surgical History Diabetic: No -: CHF -: HTN -: Lymphedema to the lower extremities -: Chronic indwelling urinary catheter -: Spinal stenosis of the back, chronic back pain -: History of DVT/PE, 1984, 1994 -: 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 -: GERD -: Iron deficiency anemia -: Large left-sided abdominal wall hernia -: Moderate-sized right sided abdominal wall hernia below the pannus. 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 He has no children. 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 - Family History Father -: Heart disease, Hypertension, GI disease Mother -: Heart disease - Social History Smoking Status: Never smoker Alcohol use: No CD- Drugs: No Caffeine use: Yes Place of Residence: Home Review of Systems General: Unremarkable Eyes: Unremarkable ENT: Unremarkable Respiratory: Cough, Shortness of Breath, SOB with Excertion, Wheezing, As per HPI Cardiovascular: Orthopnea, Paroxysmal Noc. Dyspnea, Edema, As per HPI Gastrointestinal: Abdominal Pain, Diarrhea, Constipation, As per HPI Genitourinary: Unremarkable Musculoskeletal: Unremarkable Integumentary: Unremarkable Neurological: Unremarkable Lymphatics: Unremarkable Physical Examination - Vital Signs Temperature: 97.6 F Blood Pressure: 111/69 Pulse: 75 Respirations: 24 - Physical Exam General: In no apparent distress, Cooperative, Obese HEENT: Atraumatic, PERRLA, Mucous membr. moist/pink, EOMI, Sclerae nonicteric Neck: Supple, 2+ carotid pulse no bruit, No LAD, Without JVD or thyroid abnormality Respiratory: Diminished, Crackles/rales Cardiovascular: Edema, Irregular heart rate/rhythm Capillary refill: <2 Seconds Gastrointestinal: Normal bowel sounds, No tenderness Musculoskeletal: No tenderness Integumentary: No rashes, Other (severe lymphedema) Neurological: Normal strength at 5/5 x4 extr, Normal tone, Sensation intact, Abnormal speech, Abnormal affect Lymphatics: No axilla or inguinal lymphadenopathy Urinary: Dialysis catheter - Studies Laboratory Data (last 24 hrs) 09/24/21 16:30: PT 36.9 H, INR 3.17, APTT 39.9 H 09/24/21 16:30: WBC 7.80, Hgb 12.9 L, Hct 38.2 L, Plt Count 258 09/24/21 16:30: Sodium 129 L, Potassium 4.8, BUN 30 H, Creatinine 1.31 H, Glucose 195 H, Magnesium 2.3, Total Bilirubin 0.5, AST 34, ALT 35, Alkaline Phosphatase 109, Lipase 52 L Assessment and Plan - Problems (Diagnosis) (1) Chronic a-fib Onset Date: 01/10/19 Current Visit: No Status: Chronic (2) Hyponatremia Current Visit: No Status: Chronic (3) CHF (congestive heart failure) Onset Date: 08/24/16 Current Visit: No Status: Chronic Qualifiers: Heart failure type: unspecified Heart failure chronicity: acute on chronic Qualified Code(s): I50.9 - Heart failure, unspecified (4) Chronic indwelling Hannah catheter Onset Date: 04/29/18 Current Visit: No Status: Chronic (5) History of pulmonary embolus (PE) Onset Date: 05/26/16 Current Visit: No Status: Chronic (6) Hypertension Onset Date: 04/29/18 Current Visit: No Status: Chronic Qualifiers: Hypertension type: primary hypertension Qualified Code(s): I10 - Essential (primary) hypertension (7) Lymphedema Onset Date: 04/29/18 Current Visit: No Status: Chronic (8) Morbid obesity Onset Date: 08/24/16 Current Visit: No Status: Chronic (9) Abdominal pain Onset Date: 05/26/16 Current Visit: No Status: Chronic Qualifiers: Abdominal location: generalized Qualified Code(s): R10.84 - Generalized abdominal pain (10) UTI (urinary tract infection) Onset Date: 05/26/16 Current Visit: No Status: Acute Qualifiers: Urinary tract infection type: site unspecified Hematuria presence: with hematuria Qualified Code(s): N39.0 - Urinary tract infection, site not specified; R31.9 - Hematuria, unspecified - Plan ECHO pending daily weights, fluid restrict, low sodium diet, lasix daily continue with O2 and breathing treatments as needed nephrology consulted A1c pending, sliding scale insulin anemia workup pending continue IV ceftriaxone daily INR daily, restart coumadin reconcile and continue home medications currently has home health, may require halfway care Discharge Plan: Home Plan to discharge in: 48 Hours - Advance Directives Does patient have a Living Will: No Does patient have a Durable POA for Healthcare: No - Code Status/Comfort Care Code Status Assessed: Yes (full code ) Critical Care: No Time Spent Managing Pts Care (In Minutes): 70
[2021-09-25 05:57] LABS: Protime INR 3.26
[2021-09-25 06:01] LABS: Basophils % 0.6 % (0-1.3); Hematocrit 35.6 % (39.6-49.0); Lymphocytes % 12.9 % (15.3-44.8); MPV 7.4 fL (7.6-11.3); RBC Red Blood Cell Count 3.75 M/uL (4.33-5.43)
[2021-09-25 06:21] LABS: ALT/SGPT 31 U/L (12-78); AST/SGOT 27 U/L (15-37); Albumin 2.2 g/dL (3.4-5.0); Alkaline Phosphatase 97 U/L (45-117); BUN Blood Urea Nitrogen 30 mg/dL (7-18); Bicarbonate 31 mmol/L (21-32); Bilirubin Total 0.3 mg/dL (0.2-1.0); Glucose Level 158 mg/dL (74-106); HDL Cholesterol 38 mg/dL (40-60); Phosphorus 3.7 mg/dL (2.5-4.9); Potassium 4.6 mmol/L (3.5-5.1); Protein, Total 7.3 g/dL (6.4-8.2); Sodium Level 131 mmol/L (136-145)
[2021-09-25 06:22] LABS: Ferritin 82.1 ng/mL (26-388); LDL Cholesterol, Calculated 80 (<130); Magnesium 2.1 mg/dL (1.8-2.4); Transferrin 192 mg/dL (200-360)
[2021-09-25 06:40] LABS: Folic Acid, (Folate) > 20.0 ng/mL (3.1-17.5)
[2021-09-25] MEDS: INSULIN -REGULAR HUMAN 50 UNIT/0.5 ML ML SQ SCH ×4 (07:30→20:48)
[2021-09-25] MEDS ORDERED: INFLUENZA VACCINE (for 6+ mo) 0.5 ML DOSE IMVAC ONE (08:00)
[2021-09-25 08:41] LABS: Arterial Blood Carboxyhemoglob 1.6 % (0-1.5); Blood Gas Oxyhemoglobin 92.4 % (94-97); Blood O2 Saturation 94.9 % (92-98.5)
[2021-09-25] MEDS ORDERED: FUROSEMIDE 20 MG/ 2ML VIAL IV SCH (09:00)
--- NOTE | 2021-09-25 11:08 | RAD REPORT ---
EXAM DESCRIPTION: USExtrem Venous W Compress Bil09/25/2021 4:10 am CLINICAL HISTORY: Edema COMPARISON: None. TECHNIQUE: Grayscale, color Doppler, duplex Doppler images with compression and augmentation of righ t and left lower extremity veins. FINDINGS: Evaluation more difficult due to patient body habitus. Right and Left common femoral, greater saphenous, femoral, deep (profunda) femoral, popliteal, assessment director ior tibial veins unremarkable without evidence of clot. IMPRESSION: No sonographic evidence of right or left lower extremity DVT. Electronically signed by: Aryan Kilgore MD 09/25/2021 1:05 AM CDT Due to temporary technical issues with the PACS/Fluency reporting system, reports are being signed by the in house radiologists without review as a courtesy to insure prompt reporting. The interpreting radiologist is fully responsible for the content of the report.
--- NOTE | 2021-09-25 12:52 | P.PN ---
Subjective Date of Service: 09/25/21 Chief Complaint: CHF exacerbation, UTI Patient states his shortness of breath is much better. No change in bilateral lower extremities swelling. Patient states he will go to rehab roughly be able to transfer and use a walker. Physical Examination - Vital Signs Temperature: 99.2 F Blood Pressure: 148/60 Pulse: 68 Respirations: 18 Pulse Ox (%): 95 - Physical Exam General: In no apparent distress, Oriented x3, Obese HEENT: Mucous membr. moist/pink Neck: Supple, JVD not distended Respiratory: Clear to auscultation bilaterally, Diminished (Bilateral) Cardiovascular: Normal S1 S2, Edema (4+ bilateral lower extremity pitting edema), Irregular heart rate/rhythm Gastrointestinal: Soft and benign, No tenderness, Other (Obese abdomen) Musculoskeletal: Swelling (Bilateral lower extremities) Integumentary: Erythema (Bilateral legs.), Other (Bilateral lower extremity venostasis dermatitis.) Neurological: Other (Bedbound) - Studies Laboratory Data (last 24 hrs) 09/24/21 16:30: PT 36.9 H, INR 3.17, APTT 39.9 H 09/24/21 16:30: WBC 7.80, Hgb 12.9 L, Hct 38.2 L, Plt Count 258 09/24/21 16:30: Sodium 129 L, Potassium 4.8, BUN 30 H, Creatinine 1.31 H, Glucose 195 H, Magnesium 2.3, Total Bilirubin 0.5, AST 34, ALT 35, Alkaline Phosphatase 109, Lipase 52 L Microbiology Data (last 24 hrs): 09/24/21 16:30 Blood - Blood Blood Culture Gram Stain - Final Assessment And Plan - Current Problems (Diagnosis) (1) Acute on chronic diastolic heart failure Current Visit: Yes Status: Acute (2) UTI (urinary tract infection) Onset Date: 05/26/16 Current Visit: No Status: Acute Qualifiers: Urinary tract infection type: site unspecified Hematuria presence: with hematuria Qualified Code(s): N39.0 - Urinary tract infection, site not specified; R31.9 - Hematuria, unspecified (3) Chronic a-fib Onset Date: 01/10/19 Current Visit: No Status: Chronic (4) Chronic indwelling Hannah catheter Onset Date: 04/29/18 Current Visit: No Status: Chronic (5) History of pulmonary embolus (PE) Onset Date: 05/26/16 Current Visit: No Status: Chronic (6) Hypertension Onset Date: 04/29/18 Current Visit: No Status: Chronic Qualifiers: Hypertension type: primary hypertension Qualified Code(s): I10 - Essential (primary) hypertension (7) Lymphedema Onset Date: 04/29/18 Current Visit: No Status: Chronic - Plan Continue IV Lasix. Patient will probably need Lasix drip. Nephrology consulted to assist with management. PT consult. Patient is requesting for rehab placement. Fluid restriction and laxis for hyponatremia. Monitor renal function. Continue current antibiotics for UTI. Follow urine culture and blood cultures. Collect, reconcile and continue home medications.
--- NOTE | 2021-09-25 13:45 | CON ---
Date of Consultation: 09/25/2021 History Of Present Illness: I am seeing this consult and covering to Dr. Aguilar. The patient wit h significant past medical history of CAD complicated with congestive heart failure, hypertension, ly mphedema, recurrent DVT with PE, chronic kidney disease stage 3, baseline GFR of 45, seen by the neph rologist in [place]. The patient seen his hi ranger operator 2 weeks ago without any significant changes. The patient had acute kidney injury 1 year back. At that time, it was secondary to sepsis. The pat ient required for dialysis and after that he was weaned from the dialysis as by the patient reviewing the data. At that time, the patient creatinine jumped to 6.5 back in 2019. The patient maintained on diuresis. According to the patient for a few weeks, he visited with his photography spotter, medication has been changed since the patient started to have increasing in leg swelling with shortness of breat h. For that reason, the patient reported to the hospital. Upon arrival to the hospital, the patient found anasarca with lymphedema with elevation in BUN and creatinine. For that reason, we have been consulted. Past Medical History: Includes; 1.Hypertension. 2.Hyperlipidemia. 3.Lymphedema. 4.DVT with PE. 5.CAD complicated with congestive heart failure. 6.AFib. 7.Chronic kidney disease stage 3, baseline creatinine, GFR of 45, status post acute kidney injury se condary to [facility] back in 2019 required dialysis, weaned off it. Allergies: TO SULFA. Home Medications: Include vitamin C, , gabapentin, Zoloft, Coumadin, Augmentin, oxybutynin . I do not see any mention for any diuresis. Past Surgical History: Includes; 1.Cholecystectomy. 2.[place] filter replacement. 3.Knee surgery. 4.Gastric stapling. 5.Shoulder surgery. Family History: Positive for CAD and hypertension. Social History: Lives at home. Denied smoking. Denied drinking. Denied drugs abuse. Review of Systems: Head and Neck: No red eye. No ear pain. GI: No nausea. No vomiting. : No polyuria. No dysuria. Has a Hannah catheter. Silk Screen Printer: Not applicable. Respiratory: Has shortness of breath. Cardiovascular: Has orthopnea, has increased leg swelling. Endocrine: No polydipsia. Skin: No rash. Neuro: The patient is bed bound. Moving extremities. No focality. Laboratory Data: Sodium 131, potassium 4.6, bicarb 31, BUN 30, creatinine 1.2. Calcium 9, phosphoru s 3.7, magnesium 2.1. WBC 7.4, H and H 12/35.6, platelet 251. Last lab data back in February 2020; sod ium 135, potassium 4.3, bicarb 29, BUN 22, creatinine 1.4, calcium 9.7. Assessment And Plan: 1.Chronic kidney disease, stage 3 secondary to hypertension nephrosclerosis, status post acute kidne y injury back in 2018, over volume. I am going to resume the patient on Lasix. I am going to go ahe ad and increase the Lasix to 40 mg and we will follow up the patient closely. I am going to go ahead and send for protein creatinine. 2.Hypertension. We will utilize the blood pressure to establish better volume control. 3.Anasarca secondary to congestive heart failure, lymphedema. I am going to start the patient on La six. We will send for TSH and protein creatinine and we will follow up. It is going to be too hard to evaluate the fluid status for the patient given the severe lymphedema and venous stasis change terrance t he has on the skin. Will diuresis depending on the clinical status of the patient and t he chest x-ray finding. 4.Hyponatremia, dilutional secondary to over volume, congestive heart failure. We will diurese the patient. We will send for cortisol and protein creatinine and we will send for TSH. We will continu e aggressive diuresis. 5.Urinary tract infection with the presence of permanent Hannah. I am going to avoid treatment. We will follow up culture. 6.Congestive heart failure with exacerbation as above. 7.Lymphedema as by primary. Thank you, Dr. Pope for allowing us to participate in the care of your patient. Time spent examining the patient, placing order, examining the patient [id number], discussing the c ase with the patient, reviewing data including lab and radiology, and discussing the case with our te am member including nurses and subspecialty including hospitalist 65 minutes. IHSAN Voice ID: [id number] Report ID: [id number]
[2021-09-25] MEDS ORDERED: ALBUTEROL 2.5 MG/3 ML NEB SOL NEB PRN (15:00)
[2021-09-25] MEDS: HYDROCODONE/APAP 5/325 MG TAB PO PRN ×2 (15:37→20:49)
[2021-09-25] MEDS ORDERED: HOME MED 1 EA UNK (Gabapentin [Gabapentin] 600 MG Tablet) PO SCH (17:00)
[2021-09-25] MEDS ORDERED: FUROSEMIDE 40 MG/4 ML VIAL IV SCH (17:00)
[2021-09-25] MEDS ORDERED: METOPROLOL TAR 25 MG TAB PO SCH (18:00)
[2021-09-25] MEDS: CEFTRIAXONE 1 GM/NS 50 ML 1 GM/50 ML BAG IV SCH (18:29)
--- NOTE | 2021-09-25 18:54 | P.CNS ---
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 His chief complaint is constipation for the past week and abdominal pain, which has now turned to diarrhea. He also reports hallucinations. He reports PND, orthopnea, cough, wheezing, SOB, FINK, lethargy and worsening edema. 16:04 This 81 yrs old Male presents to ER via Unassigned with complaints of sob, rn abd pain. 16:04 The patient has shortness of breath at rest. Onset: The symptoms/episode began/occurred rn 3 day(s) ago. Duration: The symptoms are intermittent. The patient's shortness of breath is aggravated by supine position, talking, is alleviated by application of supplemental oxygen. Associated signs and symptoms: Pertinent positives: non-productive cough, Pertinent negatives: fever, hemoptysis, loss of consciousness. Severity of symptoms: At their worst the symptoms were mild in the emergency department the symptoms are unchanged. The patient has experienced similar episodes in the past. The patient has not recently seen a physician. 16:04 Patient reports a few days of shortness of breath and dry cough. Also reports abdominal rn pain with constipation, although EMS noted diarrhea when patient was picked up and covered in feces. Denies vomiting. Denies fever. No trauma. States is not on home oxygen Allergies Sulfa (Sulfonamide Antibiotics) Allergy (Verified 09/25/21 00:57) Hives Home medications list reviewed: Yes Home Medications: Amlodipine Besylate 5 mg PO BID 09/25/21 Ascorbic Acid [Vitamin C] 1 tab PO DAILY 09/25/21 Esomeprazole Magnesium [Nexium 24Hr] 1 tab PO DAILY 09/25/21 Gabapentin 600 mg PO QID 09/25/21 Iron,Carbonyl/Ascorbic Acid [Iron 100-Vitamin C Tablet] 1 tab PO DAILY 09/25/21 Losartan Potassium 1 tab PO DAILY 09/25/21 Multivit-Minerals/FA/Lycopene [One Daily Men's Health Tablet] 1 tab PO DAILY 09/25/21 Sertraline HCl 1.5 tab PO DAILY 09/25/21 Warfarin Sodium 3 mg PO DAILY 09/25/21 dilTIAZem HCl [Diltiazem 24Hr ER (Cd)] 1 tab PO BID 09/25/21 glyBURIDE [Glyburide] 1 tab PO DAILY 09/25/21 - Past Medical/Surgical History Diabetic: No -: CHF -: HTN -: Lymphedema to the lower extremities -: Chronic indwelling urinary catheter -: Spinal stenosis of the back, chronic back pain -: History of DVT/PE, 1984, 1994 -: 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 -: GERD -: Iron deficiency anemia -: Large left-sided abdominal wall hernia -: Moderate-sized right sided abdominal wall hernia below the pannus. 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 He has no children. 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 - Family History Father Medical History: Heart disease, Hypertension, GI disease Mother Medical History: Heart disease - Social History Smoking Status: Unknown if ever smoked Alcohol use: No CD- Drugs: No Caffeine use: Yes Place of Residence: Home Review of Systems 10-point ROS is otherwise unremarkable General: Weakness, Malaise Respiratory: SOB with Excertion Cardiovascular: Edema Musculoskeletal: Leg Pain Neurological: Weakness Physical Examination Temp Pulse Resp BP Pulse Ox 97.6 F 109 H 20 88/57 L 98 09/25/21 16:00 09/25/21 16:00 09/25/21 16:00 09/25/21 16:00 09/25/21 16:00 General: Oriented x3, Cooperative HEENT: Atraumatic, Mucous membr. moist/pink Neck: Supple, JVD distended Respiratory: Diminished Cardiovascular: Regular rate/rhythm, Edema Gastrointestinal: Soft and benign, Non-distended Musculoskeletal: No clubbing, No contractures Integumentary: No cyanosis, Skin breakdown, Skin lesion Neurological: Normal speech Blood work reviewed in the chart. Imagings Data: EXAM DESCRIPTION: RAD - Chest Single View - 09/24/2021 5:00 pm CLINICAL HISTORY: DYSPNEA COMPARISON: Chest Single View dated 12/13/2019; Chest Single View dated 07/12/2019; Chest Single View dated 01/17/2019; Chest Single View dated 01/16/2019 FINDINGS: Lines: None. Lungs: Diffuse pulmonary opacities bilaterally. Pleural: Layering bilateral pleural effusions. Cardiac: Cardiomegaly. Bones: No acute fractures. Other: IMPRESSION: Findings most consistent with pulmonary edema with bilateral pleural effusions. EXAM DESCRIPTION: CTAbdomen Pelvis W Contrast - 09/24/2021 5:37 pm CLINICAL HISTORY: ABD PAIN COMPARISON: Abdomen Pelvis W Contrast dated 08/21/2016; CT ABD PELVIS W CONTRAST dated 07/08/2014; CT ABD PELVIS W CONTRAST dated 06/25/2014 TECHNIQUE: CT of the abdomen and pelvis was performed. All CT scans are performed using dose optimization technique as appropriate and may include automated exposure control or mA/KV adjustment according to patient size. FINDINGS: Lower chest: Bilateral pleural effusions. Cardiomegaly. Coronary artery calcifications. Dependent atelectasis. Liver: Hepatic steatosis. Mild intrahepatic biliary duct dilatation is likely r elated to the postcholecystectomy state. Biliary: Cholecystectomy. Extrahepatic biliary ductal dilatation may be related to the postcholecystectomy state. Stomach: Surgical changes along the stomach. Duodenum: No significant focal abnormality. Pancreas: No significant abnormality. Spleen: No significant abnormality. Adrenal: No suspicious lesions. Kidney/ureter: No hydronephrosis. No renal calculi. Retroperitoneum: No retroperitoneal adenopathy. Vascular: IVC filter. Atherosclerosis. No aneurysm. Bowel: No significant focal abnormality. Peritoneum: No ascites or free air. Pronounced abdominal wall laxity. Bladder: Trace bladder gas which is likely due to instrumentation. Reproductive: No adnexal masses. Bones: No acute fracture. Heterotopic ossification adjacent to the left iliac bone is unchanged. Multilevel degenerative changes are present in the spine. Other: n/a IMPRESSION: No acute intra-abdominal or pelvic finding. Bilateral pleural effusions and probably underlying atelectasis which may be secondary to heart failure. Conclusions/Impression: CKD III -No NSAIDs Hyponatremia -Increase Lasix 40mg IV q6h -Fluid restriction HTN complicated by hypotension -Hold antihypertensives Diastolic CHF, A/C -2g sodium diet -Fluid restriction -Increase Lasix 40mg IV q6h DM II with hyperglycemia -RISS Moderate malnutrition -Protein supplementation prn Anemia in chronic illness Iron deficiency -Recommend iron supplementation Atherosclerosis of the aorta Acute cystitis -Continue Rocephin -Follow up culture Thank you kindly for the consultation.
[2021-09-25] MEDS ORDERED: MANNITOL 25% 12.5 GM/50 ML VIAL IV SCH (19:00)
[2021-09-25] MEDS ORDERED: MANNITOL 20% 250 ML IV SCH (20:00)
[2021-09-25] MEDS: FUROSEMIDE 40 MG/4 ML VIAL IV SCH (20:43)
[2021-09-25] MEDS: DILTIAZEM HCL 120 MG SR CAP PO SCH (20:44)
[2021-09-25] MEDS: GABAPENTIN 400 MG CAP PO SCH (20:45)
[2021-09-25] MEDS: GABAPENTIN 300 MG CAP PO SCH (20:48)
[2021-09-25 23:29] VITALS: BMI 63.4
[2021-09-26] MEDS: FUROSEMIDE 40 MG/4 ML VIAL IV SCH ×5 (00:01→23:46)
[2021-09-26 06:16] LABS: Albumin 2.3 g/dL (3.4-5.0); Magnesium 2.1 mg/dL (1.8-2.4); Phosphorus 3.7 mg/dL (2.5-4.9); Potassium 3.9 mmol/L (3.5-5.1); Uric Acid 6.7 mg/dL (3.5-7.2)
[2021-09-26] MEDS: INSULIN -REGULAR HUMAN 50 UNIT/0.5 ML ML SQ SCH ×4 (07:30→20:36)
--- NOTE | 2021-09-26 08:35 | ECHO ---
HEIGHT: 5 ft 10 in WEIGHT: 442 lb 0 oz DATE OF STUDY: 09/25/[address]: Mejia Anglin 2-DIMENSIONAL: YES M.MODE: YES DOPPLER: YES COLOR FLOW: YES TDS: YES PORTABLE: NO DEFINITY: NO BUBBLE STUDY: NO DIAGNOSIS: PLEURAL EFFUSION CARDIAC HISTORY: CATHERIZATION: NO SURGERY: NO PROSTHETIC VALVE: NO PACEMAKER: NO MEASUREMENTS (cm) DIASTOLIC (NORMALS) SYSTOLIC (NORMALS) IVSd 1.2 (0.6-1.2) LA Diam 3.2 (1.9-4.0) LVEF 55-60% LVIDd 4.4 (3.5-5.7) LVIDs 3.4 (2.0-3.5) %FS 24% LVPWd 1.2 (0.6-1.2) Ao Diam 2.4 (2.0-3.7) 2 DIMENSIONAL ASSESSMENT: RIGHT ATRIUM: NORMAL LEFT ATRIUM: NORMAL RIGHT VENTRICLE: NORMAL LEFT VENTRICLE: NORAML TRICUSPID VALVE: MITRAL VALVE: PULMONIC VALVE: NORMAL AORTIC VALVE: NORMAL PERICARDIAL EFFUSION: SMALL AORTIC ROOT: NORMAL LEFT VENTRICULAR WALL MOTION: NORMAL DOPPLER/COLOR FLOW: SEE BELOW COMMENTS: NORMAL LEFT VENTRICULAR EJECTION FRACTION 55-60%. MILD TRICUSPID AND MITRAL REGURGITATION. SMALL PERICARDIAL EFFUSION. TECHNOLOGIST: Komal PETERSON
[2021-09-26] MEDS: FE SULF/FA/VIT B COMP & C TAB PO SCH (08:45)
[2021-09-26] MEDS ORDERED: HOME MED 1 EA UNK (Esomeprazole Magnesium [Nexium 24hr] 20 MG Tablet.Dr) PO SCH (09:00)
[2021-09-26] MEDS ORDERED: HOME MED 1 EA UNK (Ascorbic Acid [Vitamin C] 1,000 MG Tablet) PO SCH (09:00)
[2021-09-26] MEDS ORDERED: POTASSIUM CL SA 10 MEQ TAB PO ONE (09:00)
[2021-09-26] MEDS ORDERED: WARFARIN SODIUM 3 MG TAB PO SCH (09:00)
[2021-09-26] MEDS: SERTRALINE HCL 50 MG TAB PO SCH (09:32)
[2021-09-26] MEDS: ASCORBIC ACID 500 MG TABLET PO SCH (09:32)
[2021-09-26] MEDS: PANTOPRAZOLE 40MG TABLET PO SCH (09:32)
[2021-09-26] MEDS: DILTIAZEM HCL 120 MG SR CAP PO SCH ×2 (09:32→20:35)
[2021-09-26] MEDS: GABAPENTIN 300 MG CAP PO SCH ×2 (09:33→20:35)
[2021-09-26] MEDS: GABAPENTIN 400 MG CAP PO SCH ×2 (09:33→20:35)
[2021-09-26] MEDS: CEFTRIAXONE 1 GM/NS 50 ML 1 GM/50 ML BAG IV SCH (09:39)
[2021-09-26 10:58] LABS: Protime INR 2.3
[2021-09-26] MEDS: HYDROCODONE/APAP 5/325 MG TAB PO PRN ×2 (11:50→18:13)
--- NOTE | 2021-09-26 12:24 | P.PN ---
Subjective Date of Service: 09/26/21 Chief Complaint: CHF exacerbation, UTI Patient diuresing well with IV Lasix. About 4900 ml urine outputs over the past 24 hours. He states he feels his leg swelling and hand swellings are getting better. Patient has been bedbound for about 2 years. Physical Examination - Vital Signs Temperature: 96.5 F Blood Pressure: 127/65 Pulse: 111 Respirations: 17 Pulse Ox (%): 98 - Studies Microbiology Data (last 24 hrs): 09/24/21 16:30 Blood - Blood Blood Culture Gram Stain - Final Assessment And Plan - Current Problems (Diagnosis) (1) Acute on chronic diastolic heart failure Current Visit: Yes Status: Acute (2) UTI (urinary tract infection) Onset Date: 05/26/16 Current Visit: No Status: Acute Qualifiers: Urinary tract infection type: site unspecified Hematuria presence: with hematuria Qualified Code(s): N39.0 - Urinary tract infection, site not specified; R31.9 - Hematuria, unspecified (3) Chronic a-fib Onset Date: 01/10/19 Current Visit: No Status: Chronic (4) Chronic indwelling Hannah catheter Onset Date: 04/29/18 Current Visit: No Status: Chronic (5) History of pulmonary embolus (PE) Onset Date: 05/26/16 Current Visit: No Status: Chronic (6) Hypertension Onset Date: 04/29/18 Current Visit: No Status: Chronic Qualifiers: Hypertension type: primary hypertension Qualified Code(s): I10 - Essential (primary) hypertension (7) Lymphedema Onset Date: 04/29/18 Current Visit: No Status: Chronic - Plan Physical exam General: In no apparent distress, Oriented x3, morbidly obese HEENT: Mucous membr. moist/pink Neck: Supple, JVD not distended Respiratory: Clear to auscultation bilaterally, Diminished (Bilateral) Cardiovascular: Normal S1 S2, Edema (4+ bilateral lower extremity pitting edema ), Irregular heart rate/rhythm Gastrointestinal: Soft and benign, No tenderness, Obese abdomen Musculoskeletal: Swelling (Bilateral lower extremities) Integumentary: Erythema (Bilateral legs.), Bilateral lower extremity venostasis dermatitis. Neurological: Bedbound. Continue IV Lasix dose per nephrology recommendation. Nephrology input appreciated. Patient diuresing well with the current IV Lasix dose. Fluid restriction and laxis for hyponatremia. Monitor blood pressure closely. Urine culture is growing gram-negative rods. Continue IV Rocephin and follow final urine culture result. Patient is requesting for rehab placement. Continue PT. Monitor renal function. Continue Cardizem for A. fib. Pharmacy to dose Coumadin. Monitor PT/INR daily. Gabapentin, and [place] as needed for pain.
[2021-09-26] MEDS ORDERED: ENSURE HIGH PROTEIN 237 ML CAN PO PRN (16:30)
[2021-09-26] MEDS: AMILORIDE HCL 5 MG TABLET PO SCH (17:45)
[2021-09-26] MEDS: WARFARIN SODIUM 2 MG TAB PO SCH (17:45)
[2021-09-26] MEDS ORDERED: ENSURE HIGH PROTEIN 237 ML CAN PO SCH (21:00)
[2021-09-27 05:53] LABS: Absolute Lymphocytes (CBC) 1.4 K/uL (0.7-4.9); Basophils % 0.6 % (0-1.3); Lymphocytes % 21.3 % (15.3-44.8); MPV 7.3 fL (7.6-11.3); RBC Red Blood Cell Count 3.78 M/uL (4.33-5.43)
[2021-09-27] MEDS: FUROSEMIDE 40 MG/4 ML VIAL IV SCH ×3 (05:57→18:11)
[2021-09-27 06:00] LABS: Protime INR 2.07
[2021-09-27 06:14] LABS: Albumin 2.3 g/dL (3.4-5.0); Magnesium 1.8 mg/dL (1.8-2.4); Phosphorus 3.6 mg/dL (2.5-4.9); Potassium 3.8 mmol/L (3.5-5.1)
[2021-09-27] MEDS: INSULIN -REGULAR HUMAN 50 UNIT/0.5 ML ML SQ SCH ×4 (07:30→22:20)
[2021-09-27] MEDS: HYDROCODONE/APAP 5/325 MG TAB PO PRN ×2 (09:30→18:11)
[2021-09-27] MEDS: SERTRALINE HCL 50 MG TAB PO SCH (09:30)
[2021-09-27] MEDS: GABAPENTIN 400 MG CAP PO SCH ×2 (09:30→22:21)
[2021-09-27] MEDS: FE SULF/FA/VIT B COMP & C TAB PO SCH (09:30)
[2021-09-27] MEDS: ASCORBIC ACID 500 MG TABLET PO SCH (09:30)
[2021-09-27] MEDS: PANTOPRAZOLE 40MG TABLET PO SCH (09:30)
[2021-09-27] MEDS: AMILORIDE HCL 5 MG TABLET PO SCH ×2 (09:31→22:20)
[2021-09-27] MEDS: DILTIAZEM HCL 120 MG SR CAP PO SCH ×2 (09:31→22:21)
[2021-09-27] MEDS: GABAPENTIN 300 MG CAP PO SCH ×2 (09:32→22:21)
[2021-09-27] MEDS: CEFTRIAXONE 1 GM/NS 50 ML 1 GM/50 ML BAG IV SCH (09:32)
--- NOTE | 2021-09-27 11:40 | P.PN ---
Date of Service: 09/26/21 Vital Signs Temp Pulse Resp BP Pulse Ox 97.7 F 115 H 26 H 122/73 95 09/27/21 08:00 09/27/21 09:31 09/27/21 08:00 09/27/21 08:00 09/27/21 08:00 Medications Acetaminophen (Acetaminophen 500 Mg Tab) 500 mg PO Q4HP PRN PRN Reason: Pain scale 2-4 (Mild) Last Admin: 09/25/21 10:36 Dose: 500 mg Documented by: Hydrocodone Bitart/Acetaminophen (Hydrocodone/Apap 5/325 Mg Tab) 1 tab PO Q6H PRN PRN Reason: Pain scale 5-7 (Moderate) Last Admin: 09/27/21 09:30 Dose: 1 tab Documented by: Albuterol Sulfate (Albuterol 2.5 Mg/3 Ml Neb Cristal) 2.5 mg NEB [id number] PRN PRN Reason: SHORTNESS OF BREATH Amiloride HCl (Amiloride Hcl 5 Mg Tablet) 5 mg PO BID [facility] Last Admin: 09/27/21 09:31 Dose: 5 mg Documented by: Ascorbic Acid (Ascorbic Acid 500 Mg Tablet) 1,000 mg PO DAILY [facility] Last Admin: 09/27/21 09:30 Dose: 1,000 mg Documented by: Diltiazem HCl (Diltiazem Hcl 120 Mg Sr Cap) 120 mg PO BID [facility] Last Admin: 09/27/21 09:31 Dose: 120 mg Documented by: Furosemide (Furosemide 40 Mg/4 Ml Vial) 40 mg IV Q6HR [facility] Last Admin: 09/27/21 05:57 Dose: 40 mg Documented by: Gabapentin (Gabapentin 400 Mg Cap) 400 mg PO BID [facility] Last Admin: 09/27/21 09:30 Dose: 400 mg Documented by: Gabapentin (Gabapentin 300 Mg Cap) 300 mg PO BID [facility] Last Admin: 09/27/21 09:32 Dose: 300 mg Documented by: Ceftriaxone Sodium/Sodium Chloride (Rocephin 1gm/50 Ml Ivpb) 1 gm in 50 mls @ 100 mls/hr IV DAILY [facility]; Protocol Last Admin: 09/27/21 09:32 Dose: 50 mls Documented by: Insulin Human Regular (Insulin -Regular Human 50 Unit/0.5 Ml Ml) 0 unit SQ ACHS [facility]; Protocol Last Admin: 09/27/21 07:30 Dose: Not Given Documented by: Multivitamins/Iron (Fe Sulf/Fa/Vit B Comp & C Tab) 1 tab PO DAILY WITH BREAKFAST [facility] Last Admin: 09/27/21 09:30 Dose: 1 tab Documented by: Nutritional Formula (Ensure High Protein 237 Ml Can) 237 ml PO BID PRN PRN Reason: Per patient request Ondansetron HCl (Ondansetron 4 Mg/2 Ml Vial) 4 mg IV Q6HP PRN PRN Reason: NAUSEA / VOMITING Pantoprazole Sodium (Pantoprazole 40mg Tablet) 40 mg PO DAILY [facility] Last Admin: 09/27/21 09:30 Dose: 40 mg Documented by: Sertraline HCl (Sertraline Hcl 50 Mg Tab) 75 mg PO DAILY [facility] Last Admin: 09/27/21 09:30 Dose: 75 mg Documented by: Sodium Chloride (Flush Normal Saline 10 Ml) 10 ml IV BID [facility] Last Admin: 09/27/21 09:32 Dose: 10 ml Documented by: Warfarin Sodium (Warfarin Sodium 2 Mg Tab) 2 mg PO DAILY 5 PM [facility] Last Admin: 09/26/21 17:45 Dose: 2 mg Documented by: Microbiology Results 09/24/21 17:53 Catheterized Urine [place] Count - Preliminary >100,000 CFU/ML. 09/24/21 17:53 Catheterized Urine - Preliminary 09/24/21 16:30 Blood - Blood Aerobic Blood Culture - Preliminary 09/24/21 16:30 Blood - Blood Blood Culture Gram Stain - Final 09/24/21 16:30 Blood - Blood Anaerobic Blood Culture - Preliminary No growth in 24 hours. 09/24/21 16:50 Blood - Blood Aerobic Blood Culture - Preliminary No growth in 24 hours. 09/24/21 16:50 Blood - Blood Anaerobic Blood Culture - Preliminary 09/24/21 16:50 Blood - Blood Gram Stain - Preliminary Assessment/ Plan: Nephrology Progress Note Good urine output No dyspnea. FINK No chest pain No acute events overnight Vitals, medications blood work and imaging reviewed in the chart General: Oriented x3, Cooperative HEENT: Atraumatic, Mucous membr. moist/pink Neck: Supple, JVD distended Respiratory: Diminished Cardiovascular: Regular rate/rhythm, Edema Gastrointestinal: Soft and benign, Non-distended Musculoskeletal: No clubbing, No contractures Integumentary: No cyanosis, Skin breakdown, Skin lesion Neurological: Normal speech Blood work reviewed in the chart. Imagings Data: EXAM DESCRIPTION: RAD - Chest Single View - 09/24/2021 5:00 pm CLINICAL HISTORY: DYSPNEA COMPARISON: Chest Single View dated 12/13/2019; Chest Single View dated 07/12/2019; Chest Single View dated 01/17/2019; Chest Single View dated 01/16/2019 FINDINGS: Lines: None. Lungs: Diffuse pulmonary opacities bilaterally. Pleural: Layering bilateral pleural effusions. Cardiac: Cardiomegaly. Bones: No acute fractures. Other: IMPRESSION: Findings most consistent with pulmonary edema with bilateral pleural effusions. EXAM DESCRIPTION: CTAbdomen Pelvis W Contrast - 09/24/2021 5:37 pm CLINICAL HISTORY: ABD PAIN COMPARISON: Abdomen Pelvis W Contrast dated 08/21/2016; CT ABD PELVIS W CONTRAST dated 07/08/2014; CT ABD PELVIS W CONTRAST dated 06/25/2014 TECHNIQUE: CT of the abdomen and pelvis was performed. All CT scans are performed using dose optimization technique as appropriate and may include automated exposure control or mA/KV adjustment according to patient size. FINDINGS: Lower chest: Bilateral pleural effusions. Cardiomegaly. Coronary artery calcifications. Dependent atelectasis. Liver: Hepatic steatosis. Mild intrahepatic biliary duct dilatation is likely related to the postcholecystectomy state. Biliary: Cholecystectomy. Extrahepatic biliary ductal dilatation may be related to the postcholecystectomy state. Stomach: Surgical changes along the stomach. Duodenum: No significant focal abnormality. Pancreas: No significant abnormality. Spleen: No significant abnormality. Adrenal: No suspicious lesions. Kidney/ureter: No hydronephrosis. No renal calculi. Retroperitoneum: No retroperitoneal adenopathy. Vascular: IVC filter. Atherosclerosis. No aneurysm. Bowel: No significant focal abnormality. Peritoneum: No ascites or free air. Pronounced abdominal wall laxity. Bladder: Trace bladder gas which is likely due to instrumentation. Reproductive: No adnexal masses. Bones: No acute fracture. Heterotopic ossification adjacent to the left iliac bone is unchanged. Multilevel degenerative changes are present in the spine. Other: n/a IMPRESSION: No acute intra-abdominal or pelvic finding. Bilateral pleural effusions and probably underlying atelectasis which may be secondary to heart failure. Conclusions/Impression: KAYLAH in the setting of diuresis CKD III -No NSAIDs Hyponatremia -Continue Lasix 40mg IV q6h -Fluid restriction Hypokalemia -Replete potassium prn -Start Amiloride BID HTN complicated by hypotension -Hold antihypertensives Diastolic CHF, A/C -2g sodium diet -Fluid restriction -Continue Lasix 40mg IV q6h -Start Amiloride BID DM II with hyperglycemia -RISS Moderate malnutrition -Protein supplementation prn Anemia in chronic illness Iron deficiency -Consider iron supplementation Atherosclerosis of the aorta Acute cystitis -Continue Rocephin -Follow up culture Case reviewed with Dr. Pope
--- NOTE | 2021-09-27 12:02 | P.PN ---
Subjective Date of Service: 09/27/21 Chief Complaint: CHF exacerbation, UTI Patient continues to diuresis with IV Lasix. Negative fluid balance of about 4500 L over the past 24 hours. Physical Examination - Vital Signs Temperature: 98 F Blood Pressure: 120/66 Pulse: 99 Respirations: 25 Pulse Ox (%): 97 - Physical Exam General: In no apparent distress, Other (Morbidly obese) Neck: JVD not distended Respiratory: Clear to auscultation bilaterally, Diminished Cardiovascular: Normal S1 S2, Edema (Massive bilateral lower extremity edema), Irregular heart rate/rhythm Gastrointestinal: Soft and benign, Other (Obese abdomen, abdominal wall hernia) Integumentary: Other (Bilateral lower extremity venous stasis dermatitis and xerosis) Neurological: Other (Bedbound.) - Studies Microbiology Data (last 24 hrs): 09/24/21 16:30 Blood - Blood Blood Culture Gram Stain - Final Assessment And Plan - Current Problems (Diagnosis) (1) Acute on chronic diastolic heart failure Current Visit: Yes Status: Acute (2) UTI (urinary tract infection) Onset Date: 05/26/16 Current Visit: No Status: Acute Qualifiers: Urinary tract infection type: site unspecified Hematuria presence: with hematuria Qualified Code(s): N39.0 - Urinary tract infection, site not specified; R31.9 - Hematuria, unspecified (3) Chronic a-fib Onset Date: 01/10/19 Current Visit: No Status: Chronic (4) Chronic indwelling Hannah catheter Onset Date: 04/29/18 Current Visit: No Status: Chronic (5) History of pulmonary embolus (PE) Onset Date: 05/26/16 Current Visit: No Status: Chronic (6) Hypertension Onset Date: 04/29/18 Current Visit: No Status: Chronic Qualifiers: Hypertension type: primary hypertension Qualified Code(s): I10 - Essential (primary) hypertension (7) Lymphedema Onset Date: 04/29/18 Current Visit: No Status: Chronic - Plan Physical exam General: In no apparent distress, Oriented x3, morbidly obese HEENT: Mucous membr. moist/pink Neck: Supple, JVD not distended Respiratory: Clear to auscultation bilaterally, Diminished (Bilateral) Cardiovascular: Normal S1 S2, Edema (4+ bilateral lower extremity pitting edema), Irregular heart rate/rhythm Gastrointestinal: Soft and benign, No tenderness, Obese abdomen Musculoskeletal: Swelling (Bilateral lower extremities) Integumentary: Erythema (Bilateral legs.), Bilateral lower extremity venostasis dermatitis. Neurological: Bedbound. Continue IV Lasix dose per nephrology recommendation. Nephrology input appreciated. Patient diuresing well with the current IV Lasix dose. Hyponatremia almost resolved. Continue fluid restriction and laxis for hyponatremia. Monitor blood pressure closely. Urine culture is growing gram-negative rods. Continue IV Rocephin. Continue PT. Monitor renal function. Continue Cardizem for A. fib. INR is therapeutic. Pharmacy to dose Coumadin. Monitor PT/INR daily. Gabapentin, and [place] as needed for pain.
[2021-09-27 12:44] LABS: Arterial Blood Carboxyhemoglob 1.6 % (0-1.5); Blood Gas Oxyhemoglobin 94.8 % (94-97); Blood O2 Saturation 97.3 % (92-98.5)
[2021-09-27] MEDS ORDERED: POTASSIUM CL SA 10 MEQ TAB PO ONE (16:28)
[2021-09-27] MEDS ORDERED: MAGNESIUM SULFATE 1 gm IVPB 1 GM/100 ML BAG IV ONE (16:28)
[2021-09-27] MEDS: WARFARIN SODIUM 2 MG TAB PO SCH (18:06)
[2021-09-28] MEDS: FUROSEMIDE 40 MG/4 ML VIAL IV SCH ×4 (00:47→17:31)
[2021-09-28] MEDS: HYDROCODONE/APAP 5/325 MG TAB PO PRN ×4 (00:47→21:29)
[2021-09-28 05:44] LABS: Protime INR 1.93
[2021-09-28 05:45] LABS: Absolute Lymphocytes (CBC) 1.6 K/uL (0.7-4.9); Basophils % 0.8 % (0-1.3); Lymphocytes % 20.7 % (15.3-44.8); RBC Red Blood Cell Count 3.74 M/uL (4.33-5.43)
[2021-09-28 06:01] LABS: Albumin 2.3 g/dL (3.4-5.0); BUN Blood Urea Nitrogen 28 mg/dL (7-18); Bicarbonate 36 mmol/L (21-32); Glucose Level 206 mg/dL (74-106); Magnesium 2.1 mg/dL (1.8-2.4); Potassium 3.9 mmol/L (3.5-5.1); Sodium Level 135 mmol/L (136-145)
[2021-09-28] MEDS: INSULIN -REGULAR HUMAN 50 UNIT/0.5 ML ML SQ SCH ×4 (07:30→21:25)
[2021-09-28] MEDS ORDERED: POTASSIUM CL SA 10 MEQ TAB PO ONE (09:00)
[2021-09-28] MEDS: DILTIAZEM HCL 120 MG SR CAP PO SCH ×2 (09:35→21:23)
[2021-09-28] MEDS: FE SULF/FA/VIT B COMP & C TAB PO SCH (09:35)
[2021-09-28] MEDS: GABAPENTIN 400 MG CAP PO SCH ×2 (09:36→21:24)
[2021-09-28] MEDS: ASCORBIC ACID 500 MG TABLET PO SCH (09:36)
[2021-09-28] MEDS: SERTRALINE HCL 50 MG TAB PO SCH (09:37)
[2021-09-28] MEDS: GABAPENTIN 300 MG CAP PO SCH ×2 (09:38→21:24)
[2021-09-28] MEDS: AMILORIDE HCL 5 MG TABLET PO SCH ×2 (09:38→21:23)
[2021-09-28] MEDS: levoFLOXacin 750 MG TAB PO SCH (09:38)
--- NOTE | 2021-09-28 10:54 | P.PN ---
Subjective Date of Service: 09/28/21 Chief Complaint: CHF exacerbation, UTI No issues overnight. Patient with negative fluid balance. He has no new complaint. Physical Examination - Vital Signs Temperature: 97.8 F Blood Pressure: 127/84 Pulse: 102 Respirations: 26 Pulse Ox (%): 94 - Studies Microbiology Data (last 24 hrs): 09/24/21 17:53 Catheterized Urine [place] Count - Final >100,000 CFU/ML. 09/24/21 17:53 Catheterized Urine - Final Escherichia Coli Enterococcus Faecium Acinetobacter Gianni/Haem Assessment And Plan - Current Problems (Diagnosis) (1) Acute on chronic diastolic heart failure Current Visit: Yes Status: Acute (2) UTI (urinary tract infection) Onset Date: 05/26/16 Current Visit: No Status: Acute Qualifiers: Urinary tract infection type: site unspecified Hematuria presence: with hematuria Qualified Code(s): N39.0 - Urinary tract infection, site not specified; R31.9 - Hematuria, unspecified (3) Chronic a-fib Onset Date: 01/10/19 Current Visit: No Status: Chronic (4) Chronic indwelling Hannah catheter Onset Date: 04/29/18 Current Visit: No Status: Chronic (5) History of pulmonary embolus (PE) Onset Date: 05/26/16 Current Visit: No Status: Chronic (6) Hypertension Onset Date: 04/29/18 Current Visit: No Status: Chronic Qualifiers: Hypertension type: primary hypertension Qualified Code(s): I10 - Essential (primary) hypertension (7) Lymphedema Onset Date: 04/29/18 Current Visit: No Status: Chronic - Plan Physical exam General: In no apparent distress, morbidly obese Neck: Supple, JVD not distended Respiratory: Clear to auscultation bilaterally, Diminished (Bilateral) Cardiovascular: Normal S1 S2,4+ bilateral lower extremity pitting edema-not much change in lower extremity edema, Irregular heart rate/rhythm Gastrointestinal: Soft and benign, No tenderness, Obese abdomen Musculoskeletal: Swelling (Bilateral lower extremities) Integumentary: Erythema (Bilateral legs.), Bilateral lower extremity venostasis dermatitis. Neurological: Bedbound. On IV Lasix dose per nephrology recommendation. Patient also on amiloride. Nephrology is following. Patient diuresing well with the current IV Lasix dose. Hyponatremia stable. Sodium up to 135. Continue fluid restriction and laxis for hyponatremia. Monitor blood pressure closely. Urine culture: Multiple growth all sensitive to Levaquin. Antibiotics changed to oral Levaquin. Continue PT. Monitor renal function. Continue Cardizem for A. fib. Continue Coumadin. Pharmacy is dosing Coumadin. Monitor PT/INR daily. Gabapentin, and [place] as needed for pain.
[2021-09-28] MEDS ORDERED: PNEUMOCOCCAL VACCINE 0.5 ML IMVAC ONE (11:00)
[2021-09-28] MEDS ORDERED: INFLUENZA VACCINE (for 6+ mo) 0.5 ML DOSE IMVAC ONE (11:00)
[2021-09-28] MEDS: WARFARIN SODIUM 2 MG TAB PO SCH (16:45)
[2021-09-29] MEDS: FUROSEMIDE 40 MG/4 ML VIAL IV SCH ×4 (00:08→17:24)
[2021-09-29 06:03] LABS: Protime INR 2.21
[2021-09-29 06:10] LABS: Absolute Lymphocytes (CBC) 1.2 K/uL (0.7-4.9); Basophils % 0.4 % (0-1.3); Lymphocytes % 18.2 % (15.3-44.8); MPV 6.9 fL (7.6-11.3); RBC Red Blood Cell Count 3.78 M/uL (4.33-5.43)
[2021-09-29 06:13] LABS: Albumin 2.4 g/dL (3.4-5.0); Magnesium 2.1 mg/dL (1.8-2.4); Phosphorus 2.6 mg/dL (2.5-4.9); Potassium 4.1 mmol/L (3.5-5.1)
[2021-09-29] MEDS: INSULIN -REGULAR HUMAN 50 UNIT/0.5 ML ML SQ SCH ×4 (08:07→22:01)
[2021-09-29] MEDS: SERTRALINE HCL 50 MG TAB PO SCH (08:08)
[2021-09-29] MEDS: DILTIAZEM HCL 120 MG SR CAP PO SCH ×2 (08:09→22:09)
[2021-09-29] MEDS: PANTOPRAZOLE 40MG TABLET PO SCH (08:09)
[2021-09-29] MEDS: GABAPENTIN 400 MG CAP PO SCH ×2 (08:09→22:10)
[2021-09-29] MEDS: FE SULF/FA/VIT B COMP & C TAB PO SCH (08:10)
[2021-09-29] MEDS: ASCORBIC ACID 500 MG TABLET PO SCH (08:10)
[2021-09-29] MEDS: GABAPENTIN 300 MG CAP PO SCH ×2 (08:10→22:03)
[2021-09-29] MEDS: AMILORIDE HCL 5 MG TABLET PO SCH ×2 (08:10→22:03)
[2021-09-29] MEDS: HYDROCODONE/APAP 5/325 MG TAB PO PRN (08:11)
--- NOTE | 2021-09-29 10:59 | P.PN ---
Date of Service: 09/29/21 Vital Signs Temp Pulse Resp BP Pulse Ox 97.7 F 99 H 18 123/71 96 09/29/21 08:00 09/29/21 08:09 09/29/21 08:00 09/29/21 08:09 09/29/21 08:00 Medications Acetaminophen (Acetaminophen 500 Mg Tab) 500 mg PO Q4HP PRN PRN Reason: Pain scale 2-4 (Mild) Last Admin: 09/25/21 10:36 Dose: 500 mg Documented by: Hydrocodone Bitart/Acetaminophen (Hydrocodone/Apap 5/325 Mg Tab) 1 tab PO Q6H PRN PRN Reason: Pain scale 5-7 (Moderate) Last Admin: 09/29/21 08:11 Dose: 1 tab Documented by: Albuterol Sulfate (Albuterol 2.5 Mg/3 Ml Neb Cristal) 2.5 mg NEB [id number] PRN PRN Reason: SHORTNESS OF BREATH Amiloride HCl (Amiloride Hcl 5 Mg Tablet) 5 mg PO BID [facility] Last Admin: 09/29/21 08:10 Dose: 5 mg Documented by: Ascorbic Acid (Ascorbic Acid 500 Mg Tablet) 1,000 mg PO DAILY [facility] Last Admin: 09/29/21 08:10 Dose: 1,000 mg Documented by: Diltiazem HCl (Diltiazem Hcl 120 Mg Sr Cap) 120 mg PO BID [facility] Last Admin: 09/29/21 08:09 Dose: 120 mg Documented by: Furosemide (Furosemide 40 Mg/4 Ml Vial) 40 mg IV Q6HR [facility] Last Admin: 09/29/21 06:06 Dose: 40 mg Documented by: Gabapentin (Gabapentin 400 Mg Cap) 400 mg PO BID [facility] Last Admin: 09/29/21 08:09 Dose: 400 mg Documented by: Gabapentin (Gabapentin 300 Mg Cap) 300 mg PO BID [facility] Last Admin: 09/29/21 08:10 Dose: 300 mg Documented by: Insulin Human Regular (Insulin -Regular Human 50 Unit/0.5 Ml Ml) 0 unit SQ ACHS [facility]; Protocol Last Admin: 09/29/21 08:07 Dose: 2 unit Documented by: Levofloxacin (Levofloxacin 750 Mg Tab) 750 mg PO Q48H [facility] Stop: 10/10/21 09:01 Last Admin: 09/28/21 09:38 Dose: 750 mg Documented by: Multivitamins/Iron (Fe Sulf/Fa/Vit B Comp & C Tab) 1 tab PO DAILY WITH BREAKFAST [facility] Last Admin: 09/29/21 08:10 Dose: 1 tab Documented by: Nutritional Formula (Ensure High Protein 237 Ml Can) 237 ml PO BID PRN PRN Reason: Per patient request Last Admin: 09/28/21 14:50 Dose: 237 ml Documented by: Ondansetron HCl (Ondansetron 4 Mg/2 Ml Vial) 4 mg IV Q6HP PRN PRN Reason: NAUSEA / VOMITING Pantoprazole Sodium (Pantoprazole 40mg Tablet) 40 mg PO DAILY [facility] Last Admin: 09/29/21 08:09 Dose: 40 mg Documented by: Sertraline HCl (Sertraline Hcl 50 Mg Tab) 75 mg PO DAILY [facility] Last Admin: 09/29/21 08:08 Dose: 75 mg Documented by: Sodium Chloride (Flush Normal Saline 10 Ml) 10 ml IV BID [facility] Last Admin: 09/29/21 08:11 Dose: 10 ml Documented by: Warfarin Sodium (Warfarin Sodium 2 Mg Tab) 2 mg PO DAILY 5 PM [facility] Last Admin: 09/28/21 16:45 Dose: 2 mg Documented by: Microbiology Results 09/24/21 17:53 Catheterized Urine [place] Count - Final >100,000 CFU/ML. 09/24/21 17:53 Catheterized Urine - Final Escherichia Coli Enterococcus Faecium Acinetobacter Gianni/Haem 09/24/21 16:30 Blood - Blood Aerobic Blood Culture - Preliminary 09/24/21 16:30 Blood - Blood Blood Culture Gram Stain - Final 09/24/21 16:30 Blood - Blood Anaerobic Blood Culture - Preliminary No growth in 24 hours. 09/24/21 16:50 Blood - Blood Aerobic Blood Culture - Preliminary No growth in 24 hours. 09/24/21 16:50 Blood - Blood Anaerobic Blood Culture - Preliminary 09/24/21 16:50 Blood - Blood Gram Stain - Preliminary Assessment/ Plan: Nephrology Progress Note Good urine output. Feeling better. No dyspnea. FINK No chest pain No acute events overnight Vitals, medications blood work and imaging reviewed in the chart General: Oriented x3, Cooperative HEENT: Atraumatic, Mucous membr. moist/pink Neck: Supple, JVD distended Respiratory: Diminished Cardiovascular: Regular rate/rhythm, Edema Gastrointestinal: Soft and benign, Non-distended Musculoskeletal: No clubbing, No contractures Integumentary: No cyanosis, Skin breakdown, Skin lesion Neurological: Normal speech Blood work reviewed in the chart. Imagings Data: EXAM DESCRIPTION: RAD - Chest Single View - 09/24/2021 5:00 pm CLINICAL HISTORY: DYSPNEA COMPARISON: Chest Single View dated 12/13/2019; Chest Single View dated 07/12/2019; Chest Single View dated 01/17/2019; Chest Single View dated 01/16/2019 FINDINGS: Lines: None. Lungs: Diffuse pulmonary opacities bilaterally. Pleural: Layering bilateral pleural effusions. Cardiac: Cardiomegaly. Bones: No acute fractures. Other: IMPRESSION: Findings most consistent with pulmonary edema with bilateral pleural effusions. EXAM DESCRIPTION: CTAbdomen Pelvis W Contrast - 09/24/2021 5:37 pm CLINICAL HISTORY: ABD PAIN COMPARISON: Abdomen Pelvis W Contrast dated 08/21/2016; CT ABD PELVIS W CONTRAST dated 07/08/2014; CT ABD PELVIS W CONTRAST dated 06/25/2014 TECHNIQUE: CT of the abdomen and pelvis was performed. All CT scans are performed using dose optimization technique as appropriate and may include automated exposure control or mA/KV adjustment according to patient size. FINDINGS: Lower chest: Bilateral pleural effusions. Cardiomegaly. Coronary artery calcifications. Dependent atelectasis. Liver: Hepatic steatosis. Mild intrahepatic biliary duct dilatation is likely related to the postcholecystectomy state. Biliary: Cholecystectomy. Extrahepatic biliary ductal dilatation may be related to the postcholecystectomy state. Stomach: Surgical changes along the stomach. Duodenum: No significant focal abnormality. Pancreas: No significant abnormality. Spleen: No significant abnormality. Adrenal: No suspicious lesions. Kidney/ureter: No hydronephrosis. No renal calculi. Retroperitoneum: No retroperitoneal adenopathy. Vascular: IVC filter. Atherosclerosis. No aneurysm. Bowel: No significant focal abnormality. Peritoneum: No ascites or free air. Pronounced abdominal wall laxity. Bladder: Trace bladder gas which is likely due to instrumentation. Reproductive: No adnexal masses. Bones: No acute fracture. Heterotopic ossification adjacent to the left iliac bone is unchanged. Multilevel degenerative changes are present in the spine. Other: n/a IMPRESSION: No acute intra-abdominal or pelvic finding. Bilateral pleural effusions and probably underlying atelectasis which may be secondary to heart failure. Conclusions/Impression: KAYLAH in the setting of diuresis CKD III -No NSAIDs Hyponatremia -Continue Lasix 40mg IV q6h -Increase fluid restriction Hypokalemia -Replete potassium prn -Continue Amiloride BID Alkalosis in the setting of diuresis -Continue Amiloride -Diamox X2 doses HTN complicated by hypotension -Hold antihypertensives Diastolic CHF, A/C -2g sodium diet -Fluid restriction -Continue Lasix 40mg IV q6h -Continue Amiloride BID DM II with hyperglycemia -RISS Moderate malnutrition -Protein supplementation Anemia in chronic illness Iron deficiency -Consider iron supplementation Atherosclerosis of the aorta Acute cystitis -Continue Levaquin Case reviewed with Dr. Pope
[2021-09-29] MEDS: acetaZOLAMIDE 250 MG TAB PO SCH ×2 (11:48→17:24)
--- NOTE | 2021-09-29 13:47 | P.PN ---
Subjective Date of Service: 09/29/21 Chief Complaint: CHF exacerbation, UTI No issues overnight. Patient with negative fluid balance over the past several days. He has no new complaint. His lower extremities swelling are improving. Physical Examination - Vital Signs Temperature: 97.2 F Blood Pressure: 116/67 Pulse: 94 Respirations: 18 Pulse Ox (%): 96 Assessment And Plan - Current Problems (Diagnosis) (1) Acute on chronic diastolic heart failure Current Visit: Yes Status: Acute (2) UTI (urinary tract infection) Onset Date: 05/26/16 Current Visit: No Status: Acute Qualifiers: Urinary tract infection type: site unspecified Hematuria presence: with hematuria Qualified Code(s): N39.0 - Urinary tract infection, site not specified; R31.9 - Hematuria, unspecified (3) Chronic a-fib Onset Date: 01/10/19 Current Visit: No Status: Chronic (4) Chronic indwelling Hannah catheter Onset Date: 04/29/18 Current Visit: No Status: Chronic (5) History of pulmonary embolus (PE) Onset Date: 05/26/16 Current Visit: No Status: Chronic (6) Hypertension Onset Date: 04/29/18 Current Visit: No Status: Chronic Qualifiers: Hypertension type: primary hypertension Qualified Code(s): I10 - Essential (primary) hypertension (7) Lymphedema Onset Date: 04/29/18 Current Visit: No Status: Chronic - Plan Physical exam General: In no apparent distress, morbidly obese Respiratory: Clear to auscultation bilaterally, Diminished. Cardiovascular: Normal S1 S2,4+ bilateral lower extremity pitting edema-some improvement, Irregular heart rate/rhythm Gastrointestinal: Soft and benign, No tenderness, Obese abdomen Musculoskeletal: Swelling (Bilateral lower extremities) Integumentary: Erythema (Bilateral legs.), Bilateral lower extremity venostasis dermatitis. Neurological: Bedbound. On IV Lasix dose per nephrology recommendation. Patient also on amiloride. Nephrology is following. Patient diuresing well with the current IV Lasix dose. Contraction alkalosis noted. Diamox added. Patient with hyponatremia. Continue to monitor BMP. Continue fluid restriction and laxis. Monitor blood pressure closely. Urine culture: Multiple growth all sensitive to Levaquin. Continue oral Levaquin. Continue PT. Monitor renal function. Continue Cardizem for A. fib. Continue Coumadin. Pharmacy is dosing Coumadin taken into consideration interaction with Levaquin. Monitor PT/INR daily. Continue gabapentin, and [place] as needed for pain. Patient request for rehab placement. Social service assisting with arrangement. Waiting for insurance approval.
[2021-09-29] MEDS: WARFARIN SODIUM 2 MG TAB PO SCH (16:32)
[2021-09-29] MEDS ORDERED: POLYETHYL GLY 3350 17 GM/DOSE PO PRN (18:43)
[2021-09-29] MEDS: SENOSIDES 8.6 MG TAB PO SCH (22:04)
[2021-09-30] MEDS: FUROSEMIDE 40 MG/4 ML VIAL IV SCH ×4 (01:14→20:17)
[2021-09-30 05:34] LABS: Absolute Lymphocytes (CBC) 1.2 K/uL (0.7-4.9); Basophils % 0.5 % (0-1.3); Hematocrit 35.9 % (39.6-49.0); Lymphocytes % 16.1 % (15.3-44.8); MPV 7.5 fL (7.6-11.3); RBC Red Blood Cell Count 3.72 M/uL (4.33-5.43)
[2021-09-30 05:35] LABS: Protime INR 2.11
[2021-09-30 05:45] LABS: Albumin 2.5 g/dL (3.4-5.0); Magnesium 2.1 mg/dL (1.8-2.4); Phosphorus 2.9 mg/dL (2.5-4.9); Potassium 3.7 mmol/L (3.5-5.1)
[2021-09-30] MEDS ORDERED: NA CHLORIDE 0.9% 250 ML ONE (06:32)
[2021-09-30] MEDS ORDERED: KCL 20 MEQ/100 mL IVPB 20 MEQ/100 ML BAG IV SCH (07:00)
[2021-09-30] MEDS: INSULIN -REGULAR HUMAN 50 UNIT/0.5 ML ML SQ SCH ×4 (08:24→20:18)
[2021-09-30] MEDS: FE SULF/FA/VIT B COMP & C TAB PO SCH (08:26)
[2021-09-30] MEDS: levoFLOXacin 750 MG TAB PO SCH (08:26)
[2021-09-30] MEDS: SERTRALINE HCL 50 MG TAB PO SCH (08:26)
[2021-09-30] MEDS: ASCORBIC ACID 500 MG TABLET PO SCH (08:26)
[2021-09-30] MEDS: PANTOPRAZOLE 40MG TABLET PO SCH (08:26)
[2021-09-30] MEDS: DILTIAZEM HCL 120 MG SR CAP PO SCH ×2 (08:26→20:16)
[2021-09-30] MEDS: GABAPENTIN 400 MG CAP PO SCH ×2 (08:26→20:16)
[2021-09-30] MEDS: GABAPENTIN 300 MG CAP PO SCH ×2 (08:26→20:17)
[2021-09-30] MEDS: SENOSIDES 8.6 MG TAB PO SCH ×2 (08:26→20:17)
[2021-09-30] MEDS: AMILORIDE HCL 5 MG TABLET PO SCH ×2 (08:32→20:17)
--- NOTE | 2021-09-30 09:17 | RAD REPORT ---
EXAM DESCRIPTION: RAD - Chest Single View - 09/30/2021 5:42 am CLINICAL HISTORY: f/u pulm edema / effusions Chest pain. COMPARISON: Chest Single View dated 09/24/2021; Chest Single View dated 12/13/2019; Chest Single View dated 07/12/2019; Chest Single View dated 01/17/2019 FINDINGS: Portable technique limits examination quality. Since 09/24/2021, there has been mild to moderate improvement in bilateral pulmonary opacities. The h eart is moderately enlarged in size. No displaced fractures. IMPRESSION: Mild to moderate improvement in lung aeration since prior study.
--- NOTE | 2021-09-30 13:14 | P.PN ---
Date of Service: 09/30/21 Subjective: No acute events overnight, patient reports feeling slightly better Swelling slowly improving Awaiting approval for rehab ROS: 10 point ROS as noted above, otherwise negative Physical exam GEN: Alert, oriented HEENT: Normal conjunctiva, sclera anicteric CV: Irregularly irregular rhythm, 3+ edema b/l lower extremities Pulm: Nonlabored respiration on 4L NC ABD: Soft, nontender, nondistended Integumentary: Bilateral lower extremity venous stasis dermatitis Neuro: Normal speech, normal affect, bedbound, generalized weakness Problem List Acute hypoxemic respiratory failure secondary to acute on chronic diastolic congestive heart failure Urinary tract infection KAYLAH on CKD 3 Chronic atrial fibrillation Chronic indwelling Hannah catheter History of PE Hypertension Chronic lymphedema On IV Lasix dose per nephrology recommendation. Patient also on amiloride. Cr slightly increased, Lasix dose to be decreased Nephrology is following. Patient diuresing well with the current IV Lasix dose. Contraction alkalosis noted and patient given a few doses of diamox Patient with hyponatremia. Continue to monitor BMP. Continue fluid restriction and lasix Monitor blood pressure closely. Urine culture: Multiple growth all sensitive to Levaquin. Continue oral Levaquin. Continue PT. Continue Cardizem for A. fib. Continue Coumadin. Pharmacy is dosing Coumadin taken into consideration interaction with Levaquin. Monitor PT/INR daily. Continue gabapentin, and [place] as needed for pain. Dispo: Patient request for rehab placement. Social service assisting with arrangement. Waiting for insurance approval and rehab approval Time Spent Managing Pts Care (In Minutes): 35
[2021-09-30] MEDS: WARFARIN SODIUM 2 MG TAB PO SCH (17:54)
--- NOTE | 2021-09-30 20:27 | P.PN ---
Date of Service: 09/30/21 Vital Signs Temp Pulse Resp BP Pulse Ox 97.2 F 89 16 119/66 97 09/30/21 16:00 09/30/21 20:17 09/30/21 16:00 09/30/21 20:17 09/30/21 16:00 Medications Acetaminophen (Acetaminophen 500 Mg Tab) 500 mg PO Q4HP PRN PRN Reason: Pain scale 2-4 (Mild) Last Admin: 09/25/21 10:36 Dose: 500 mg Documented by: Hydrocodone Bitart/Acetaminophen (Hydrocodone/Apap 5/325 Mg Tab) 1 tab PO Q6H PRN PRN Reason: Pain scale 5-7 (Moderate) Last Admin: 09/29/21 08:11 Dose: 1 tab Documented by: Albuterol Sulfate (Albuterol 2.5 Mg/3 Ml Neb Cristal) 2.5 mg NEB [id number] PRN PRN Reason: SHORTNESS OF BREATH Amiloride HCl (Amiloride Hcl 5 Mg Tablet) 5 mg PO BID [facility] Last Admin: 09/30/21 20:17 Dose: 5 mg Documented by: Ascorbic Acid (Ascorbic Acid 500 Mg Tablet) 1,000 mg PO DAILY [facility] Last Admin: 09/30/21 08:26 Dose: 1,000 mg Documented by: Diltiazem HCl (Diltiazem Hcl 120 Mg Sr Cap) 120 mg PO BID [facility] Last Admin: 09/30/21 20:16 Dose: 120 mg Documented by: Furosemide (Furosemide 40 Mg/4 Ml Vial) 40 mg IV Q12H [facility] Last Admin: 09/30/21 20:17 Dose: 40 mg Documented by: Gabapentin (Gabapentin 400 Mg Cap) 400 mg PO BID [facility] Last Admin: 09/30/21 20:16 Dose: 400 mg Documented by: Gabapentin (Gabapentin 300 Mg Cap) 300 mg PO BID [facility] Last Admin: 09/30/21 20:17 Dose: 300 mg Documented by: Insulin Human Regular (Insulin -Regular Human 50 Unit/0.5 Ml Ml) 0 unit SQ [facility]GED WITH [facility]; Protocol Last Admin: 09/30/21 20:18 Dose: 2 unit Documented by: Levofloxacin (Levofloxacin 750 Mg Tab) 750 mg PO Q48H [facility] Stop: 10/10/21 09:01 Last Admin: 09/30/21 08:26 Dose: 750 mg Documented by: Multivitamins/Iron (Fe Sulf/Fa/Vit B Comp & C Tab) 1 tab PO DAILY WITH BREAKFAST [facility] Last Admin: 09/30/21 08:26 Dose: 1 tab Documented by: Nutritional Formula (Ensure High Protein 237 Ml Can) 237 ml PO BID PRN PRN Reason: Per patient request Last Admin: 09/28/21 14:50 Dose: 237 ml Documented by: Ondansetron HCl (Ondansetron 4 Mg/2 Ml Vial) 4 mg IV Q6HP PRN PRN Reason: NAUSEA / VOMITING Pantoprazole Sodium (Pantoprazole 40mg Tablet) 40 mg PO DAILY [facility] Last Admin: 09/30/21 08:26 Dose: 40 mg Documented by: Polyethylene Glycol (Polyethyl Gly 3350 17 Gm/Dose) 17 gm PO DAILY PRN PRN Reason: CONSTIPATION Senna (Senosides 8.6 Mg Tab) 17.2 mg PO BID [facility] Last Admin: 09/30/21 20:17 Dose: 17.2 mg Documented by: Sertraline HCl (Sertraline Hcl 50 Mg Tab) 75 mg PO DAILY [facility] Last Admin: 09/30/21 08:26 Dose: 75 mg Documented by: Sodium Chloride (Flush Normal Saline 10 Ml) 10 ml IV BID [facility] Last Admin: 09/30/21 20:18 Dose: 10 ml Documented by: Warfarin Sodium (Warfarin Sodium 2 Mg Tab) 2 mg PO DAILY 5 PM [facility] Last Admin: 09/30/21 17:54 Dose: 2 mg Documented by: Microbiology Results 09/24/21 16:50 Blood - Blood Aerobic Blood Culture - Final No growth in 5 days. 09/24/21 16:50 Blood - Blood Anaerobic Blood Culture - Final 09/24/21 16:50 Blood - Blood Gram Stain - Final 09/24/21 16:30 Blood - Blood Aerobic Blood Culture - Final 09/24/21 16:30 Blood - Blood Blood Culture Gram Stain - Final 09/24/21 16:30 Blood - Blood Anaerobic Blood Culture - Final No growth in 5 days. 09/24/21 17:53 Catheterized Urine [place] Count - Final >100,000 CFU/ML. 09/24/21 17:53 Catheterized Urine - Final Escherichia Coli Enterococcus Faecium Acinetobacter Gianni/Haem Assessment/ Plan: Nephrology Progress Note Good urine output. Feeling better. No dyspnea. FINK No chest pain No acute events overnight Vitals, medications blood work and imaging reviewed in the chart General: Oriented x3, Cooperative HEENT: Atraumatic, Mucous membr. moist/pink Neck: Supple, JVD distended Respiratory: Diminished Cardiovascular: Regular rate/rhythm, Edema Gastrointestinal: Soft and benign, Non-distended Musculoskeletal: No clubbing, No contractures Integumentary: No cyanosis, Skin breakdown, Skin lesion Neurological: Normal speech Blood work reviewed in the chart. Imagings Data: EXAM DESCRIPTION: RAD - Chest Single View - 09/24/2021 5:00 pm CLINICAL HISTORY: DYSPNEA COMPARISON: Chest Single View dated 12/13/2019; Chest Single View dated 07/12/2019; Chest Single View dated 01/17/2019; Chest Single View dated 01/16/2019 FINDINGS: Lines: None. Lungs: Diffuse pulmonary opacities bilaterally. Pleural: Layering bilateral pleural effusions. Cardiac: Cardiomegaly. Bones: No acute fractures. Other: IMPRESSION: Findings most consistent with pulmonary edema with bilateral pleural effusions. EXAM DESCRIPTION: CTAbdomen Pelvis W Contrast - 09/24/2021 5:37 pm CLINICAL HISTORY: ABD PAIN COMPARISON: Abdomen Pelvis W Contrast dated 08/21/2016; CT ABD PELVIS W CONTRAST dated 07/08/2014; CT ABD PELVIS W CONTRAST dated 06/25/2014 TECHNIQUE: CT of the abdomen and pelvis was performed. All CT scans are performed using dose optimization technique as appropriate and may include automated exposure control or mA/KV adjustment according to patient size. FINDINGS: Lower chest: Bilateral pleural effusions. Cardiomegaly. Coronary artery calcifications. Dependent atelectasis. Liver: Hepatic steatosis. Mild intrahepatic biliary duct dilatation is likely related to the postcholecystectomy state. Biliary: Cholecystectomy. Extrahepatic biliary ductal dilatation may be related to the postcholecystectomy state. Stomach: Surgical changes along the stomach. Duodenum: No significant focal abnormality. Pancreas: No significant abnormality. Spleen: No significant abnormality. Adrenal: No suspicious lesions. Kidney/ureter: No hydronephrosis. No renal calculi. Retroperitoneum: No retroperitoneal adenopathy. Vascular: IVC filter. Atherosclerosis. No aneurysm. Bowel: No significant focal abnormality. Peritoneum: No ascites or free air. Pronounced abdominal wall laxity. Bladder: Trace bladder gas which is likely due to instrumentation. Reproductive: No adnexal masses. Bones: No acute fracture. Heterotopic ossification adjacent to the left iliac bone is unchanged. Multilevel degenerative changes are present in the spine. Other: n/a IMPRESSION: No acute intra-abdominal or pelvic finding. Bilateral pleural effusions and probably underlying atelectasis which may be secondary to heart failure. Conclusions/Impression: KAYLAH in the setting of diuresis CKD III -No NSAIDs Hyponatremia -Reduce Lasix 40mg IV q12h -Continue fluid restriction Hypokalemia -Replete potassium prn -Continue Amiloride BID Alkalosis in the setting of diuresis -Continue Amiloride -Diamox prn HTN complicated by hypotension -Hold antihypertensives Diastolic CHF, A/C -2g sodium diet -Fluid restriction -Continue Lasix 40mg IV q12h -Continue Amiloride BID DM II with hyperglycemia -RISS Moderate malnutrition -Protein supplementation Anemia in chronic illness Iron deficiency -Consider iron supplementation Atherosclerosis of the aorta Acute cystitis -Continue Levaquin Case reviewed with Dr. Duarte
[2021-10-01 05:39] LABS: Protime INR 2.05
[2021-10-01 05:54] LABS: Potassium 3.9 mmol/L (3.5-5.1)
--- NOTE | 2021-10-01 06:02 | P.PN ---
Date of Service: 10/01/21 Subjective: No acute events overnight Patient reports continued pain. Worked with physical therapy yesterday, has not been able to get out of bed Wanting to go to inpatient rehab No new complaints ROS: 10 point ROS as noted above, otherwise negative Physical exam GEN: Alert, oriented HEENT: Normal conjunctiva, sclera anicteric CV: Irregularly irregular rhythm, 2-3+ edema b/l lower extremities Pulm: Nonlabored respiration on 2L NC ABD: Soft, nontender, nondistended Integumentary: Bilateral lower extremity venous stasis dermatitis Neuro: Normal speech, normal affect, bedbound, generalized weakness Problem List Acute hypoxemic respiratory failure secondary to acute on chronic diastolic congestive heart failure Urinary tract infection KAYLAH on CKD 3 Chronic atrial fibrillation Chronic indwelling Hannah catheter History of PE Hypertension Chronic lymphedema On IV Lasix per nephrology recommendation. Patient also on amiloride. Cr slightly increased yesterday, Lasix dose to be decreased. renal function stable Nephrology is following. Patient diuresing well with the current IV Lasix dose. Contraction alkalosis noted and patient given a few doses of diamox. improving Patient with mild hyponatremia. Continue to monitor BMP. Continue fluid restriction and lasix O2 requirement improving. CXR noted improvement as well yesterday Monitor blood pressure closely. Urine culture: Multiple growth all sensitive to Levaquin. Continue oral Levaquin. Continue PT. Continue Cardizem for A. fib. Continue Coumadin. Pharmacy is dosing Coumadin taken into consideration interaction with Levaquin. Monitor PT/INR daily. Continue gabapentin, and [place] as needed for pain. Dispo: Patient requests for rehab placement. Social service assisting with arrangement. Waiting for insurance approval and rehab approval worked with PT yesterday, seems motivated Time Spent Managing Pts Care (In Minutes): 35
[2021-10-01] MEDS: INSULIN -REGULAR HUMAN 50 UNIT/0.5 ML ML SQ SCH ×4 (08:20→21:20)
[2021-10-01] MEDS: ASCORBIC ACID 500 MG TABLET PO SCH (08:22)
[2021-10-01] MEDS: DILTIAZEM HCL 120 MG SR CAP PO SCH ×2 (08:22→21:19)
[2021-10-01] MEDS: SERTRALINE HCL 50 MG TAB PO SCH (08:23)
[2021-10-01] MEDS: SENOSIDES 8.6 MG TAB PO SCH ×2 (08:24→21:19)
[2021-10-01] MEDS: FUROSEMIDE 40 MG/4 ML VIAL IV SCH ×2 (08:24→21:19)
[2021-10-01] MEDS: PANTOPRAZOLE 40MG TABLET PO SCH (08:24)
[2021-10-01] MEDS: GABAPENTIN 400 MG CAP PO SCH ×2 (08:24→21:20)
[2021-10-01] MEDS: FE SULF/FA/VIT B COMP & C TAB PO SCH (08:24)
[2021-10-01] MEDS: AMILORIDE HCL 5 MG TABLET PO SCH ×2 (08:26→21:19)
[2021-10-01] MEDS: GABAPENTIN 300 MG CAP PO SCH ×2 (08:27→21:20)
[2021-10-01] MEDS ORDERED: POTASSIUM CL SA 10 MEQ TAB PO ONE (09:00)
[2021-10-01] MEDS: WARFARIN SODIUM 2 MG TAB PO SCH (17:43)
--- NOTE | 2021-10-01 20:53 | P.PN ---
Date of Service: 10/01/21 Vital Signs Temp Pulse Resp BP Pulse Ox 97.2 F 77 17 106/59 L 96 10/01/21 16:00 10/01/21 16:00 10/01/21 16:00 10/01/21 16:00 10/01/21 16:00 Medications Acetaminophen (Acetaminophen 500 Mg Tab) 500 mg PO Q4HP PRN PRN Reason: Pain scale 2-4 (Mild) Last Admin: 09/25/21 10:36 Dose: 500 mg Documented by: Hydrocodone Bitart/Acetaminophen (Hydrocodone/Apap 5/325 Mg Tab) 1 tab PO Q6H PRN PRN Reason: Pain scale 5-7 (Moderate) Albuterol Sulfate (Albuterol 2.5 Mg/3 Ml Neb Cristal) 2.5 mg NEB [id number] PRN PRN Reason: SHORTNESS OF BREATH Amiloride HCl (Amiloride Hcl 5 Mg Tablet) 5 mg PO BID [facility] Last Admin: 10/01/21 08:26 Dose: 5 mg Documented by: Ascorbic Acid (Ascorbic Acid 500 Mg Tablet) 1,000 mg PO DAILY [facility] Last Admin: 10/01/21 08:22 Dose: 1,000 mg Documented by: Diltiazem HCl (Diltiazem Hcl 120 Mg Sr Cap) 120 mg PO BID [facility] Last Admin: 10/01/21 08:22 Dose: 120 mg Documented by: Furosemide (Furosemide 40 Mg/4 Ml Vial) 40 mg IV Q12H [facility] Last Admin: 10/01/21 08:24 Dose: 40 mg Documented by: Gabapentin (Gabapentin 400 Mg Cap) 400 mg PO BID [facility] Last Admin: 10/01/21 08:24 Dose: 400 mg Documented by: Gabapentin (Gabapentin 300 Mg Cap) 300 mg PO BID [facility] Last Admin: 10/01/21 08:27 Dose: 300 mg Documented by: Ferric Sodium Gluconate Complex 125 mg/ Sodium Chloride 110 mls @ 100 mls/hr IV 1X ONE Stop: 10/02/21 22:05 Insulin Human Regular (Insulin -Regular Human 50 Unit/0.5 Ml Ml) 0 unit SQ ACHS [facility]; Protocol Last Admin: 10/01/21 17:40 Dose: 2 unit Documented by: Levofloxacin (Levofloxacin 750 Mg Tab) 750 mg PO Q48H [facility] Stop: 10/10/21 09:01 Last Admin: 09/30/21 08:26 Dose: 750 mg Documented by: Multivitamins/Iron (Fe Sulf/Fa/Vit B Comp & C Tab) 1 tab PO DAILY WITH BREAKFAST [facility] Last Admin: 10/01/21 08:24 Dose: 1 tab Documented by: Nutritional Formula (Ensure High Protein 237 Ml Can) 237 ml PO BID PRN PRN Reason: Per patient request Last Admin: 09/28/21 14:50 Dose: 237 ml Documented by: Ondansetron HCl (Ondansetron 4 Mg/2 Ml Vial) 4 mg IV Q6HP PRN PRN Reason: NAUSEA / VOMITING Pantoprazole Sodium (Pantoprazole 40mg Tablet) 40 mg PO DAILY [facility] Last Admin: 10/01/21 08:24 Dose: 40 mg Documented by: Polyethylene Glycol (Polyethyl Gly 3350 17 Gm/Dose) 17 gm PO DAILY PRN PRN Reason: CONSTIPATION Senna (Senosides 8.6 Mg Tab) 17.2 mg PO BID [facility] Last Admin: 10/01/21 08:24 Dose: 17.2 mg Documented by: Sertraline HCl (Sertraline Hcl 50 Mg Tab) 75 mg PO DAILY [facility] Last Admin: 10/01/21 08:23 Dose: 75 mg Documented by: Sodium Chloride (Flush Normal Saline 10 Ml) 10 ml IV BID [facility] Last Admin: 10/01/21 08:26 Dose: 10 ml Documented by: Warfarin Sodium (Warfarin Sodium 2 Mg Tab) 2 mg PO DAILY 5 PM [facility] Last Admin: 10/01/21 17:43 Dose: 2 mg Documented by: Microbiology Results 09/24/21 16:50 Blood - Blood Aerobic Blood Culture - Final No growth in 5 days. 09/24/21 16:50 Blood - Blood Anaerobic Blood Culture - Final 09/24/21 16:50 Blood - Blood Gram Stain - Final 09/24/21 16:30 Blood - Blood Aerobic Blood Culture - Final 09/24/21 16:30 Blood - Blood Blood Culture Gram Stain - Final 09/24/21 16:30 Blood - Blood Anaerobic Blood Culture - Final No growth in 5 days. 09/24/21 17:53 Catheterized Urine [place] Count - Final >100,000 CFU/ML. 09/24/21 17:53 Catheterized Urine - Final Escherichia Coli Enterococcus Faecium Acinetobacter Gianni/Haem Assessment/ Plan: Nephrology Progress Note Good urine output. Feeling better. No dyspnea. FINK No chest pain No acute events overnight Vitals, medications blood work and imaging reviewed in the chart General: Oriented x3, Cooperative HEENT: Atraumatic, Mucous membr. moist/pink Neck: Supple, JVD distended Respiratory: Diminished Cardiovascular: Regular rate/rhythm, Edema Gastrointestinal: Soft and benign, Non-distended Musculoskeletal: No clubbing, No contractures Integumentary: No cyanosis, Skin breakdown, Skin lesion Neurological: Normal speech Blood work reviewed in the chart. Imagings Data: EXAM DESCRIPTION: RAD - Chest Single View - 09/24/2021 5:00 pm CLINICAL HISTORY: DYSPNEA COMPARISON: Chest Single View dated 12/13/2019; Chest Single View dated 07/12/2019; Chest Single View dated 01/17/2019; Chest Single View dated 01/16/2019 FINDINGS: Lines: None. Lungs: Diffuse pulmonary opacities bilaterally. Pleural: Layering bilateral pleural effusions. Cardiac: Cardiomegaly. Bones: No acute fractures. Other: IMPRESSION: Findings most consistent with pulmonary edema with bilateral pleural effusions. EXAM DESCRIPTION: CTAbdomen Pelvis W Contrast - 09/24/2021 5:37 pm CLINICAL HISTORY: ABD PAIN COMPARISON: Abdomen Pelvis W Contrast dated 08/21/2016; CT ABD PELVIS W CONTRAST dated 07/08/2014; CT ABD PELVIS W CONTRAST dated 06/25/2014 TECHNIQUE: CT of the abdomen and pelvis was performed. All CT scans are performed using dose optimization technique as appropriate and may include automated exposure control or mA/KV adjustment according to patient size. FINDINGS: Lower chest: Bilateral pleural effusions. Cardiomegaly. Coronary artery calcifications. Dependent atelectasis. Liver: Hepatic steatosis. Mild intrahepatic biliary duct dilatation is likely related to the postcholecystectomy state. Biliary: Cholecystectomy. Extrahepatic biliary ductal dilatation may be related to the postcholecystectomy state. Stomach: Surgical changes along the stomach. Duodenum: No significant focal abnormality. Pancreas: No significant abnormality. Spleen: No significant abnormality. Adrenal: No suspicious lesions. Kidney/ureter: No hydronephrosis. No renal calculi. Retroperitoneum: No retroperitoneal adenopathy. Vascular: IVC filter. Atherosclerosis. No aneurysm. Bowel: No significant focal abnormality. Peritoneum: No ascites or free air. Pronounced abdominal wall laxity. Bladder: Trace bladder gas which is likely due to instrumentation. Reproductive: No adnexal masses. Bones: No acute fracture. Heterotopic ossification adjacent to the left iliac bone is unchanged. Multilevel degenerative changes are present in the spine. Other: n/a IMPRESSION: No acute intra-abdominal or pelvic finding. Bilateral pleural effusions and probably underlying atelectasis which may be secondary to heart failure. Conclusions/Impression: KAYLAH in the setting of diuresis CKD III -No NSAIDs Hyponatremia -Continue Lasix 40mg IV q12h -Continue fluid restriction Hypokalemia -Replete potassium prn -Continue Amiloride BID Alkalosis in the setting of diuresis -Continue Amiloride -Diamox prn HTN complicated by hypotension -Hold antihypertensives Diastolic CHF, A/C -2g sodium diet -Fluid restriction -Continue Lasix 40mg IV q12h -Continue Amiloride BID DM II with hyperglycemia -RISS Moderate malnutrition -Protein supplementation Anemia in chronic illness Iron deficiency -Give a dose of IV iron Atherosclerosis of the aorta Acute cystitis -Continue Levaquin
[2021-10-01] MEDS: HYDROCODONE/APAP 5/325 MG TAB PO PRN (21:21)
[2021-10-01] MEDS ORDERED: MORPHINE 2 MG/ML SYR IV ONE (23:07)
--- NOTE | 2021-10-02 05:57 | P.PN ---
Date of Service: 10/02/21 Subjective: No acute events overnight Reports slightly worse left knee and left ankle pain after working with physical therapy yesterday. Reports Darragh helped slightly No other new complaints/issues Reports feeling his breathing is slightly more comfortable, swelling continues to improve ROS: 10 point ROS as noted above, otherwise negative Physical exam GEN: Alert, oriented HEENT: Normal conjunctiva, sclera anicteric CV: Irregularly irregular rhythm, 2+ edema b/l lower extremities Pulm: Nonlabored respiration on 4L NC ABD: Soft, nontender, nondistended Integumentary: Bilateral lower extremity venous stasis dermatitis MSK: tenderness to palpation on L knee medial aspect in area of Pes Anserine bursa. L ankle: tenderness to palpation anterolateral ankle, no skin changes. no pain with flexion/extension Neuro: Normal speech, normal affect, bedbound, generalized weakness Problem List Acute hypoxemic respiratory failure secondary to acute on chronic diastolic congestive heart failure Urinary tract infection KAYLAH on CKD 3 Chronic atrial fibrillation on coumadin Chronic indwelling Sims catheter History of PE Hypertension Chronic lymphedema Edema and oxygen requirement overall improving Nephrology consulted and assisting with diuresis, continue Lasix and amiloride per recommendations, renal function stable ent IV Lasix dose. Contraction alkalosis noted and patient given a few doses of diamox. improving Continue fluid restriction and lasix O2 requirement improving. CXR noted improvement as well Urine culture: Multiple bacteria growth all sensitive to Levaquin. Continue oral Levaquin. Exchange sims Continue PT. Continue Cardizem for A. fib. Continue Coumadin. Pharmacy is dosing Coumadin taken into consideration interaction with Levaquin. Monitor PT/INR daily. Continue gabapentin [place] as needed for pain. Pain of the left knee and ankle were acute on chronic, reports just increased in severity. Will check x-ray Dispo: Patient requests for rehab placement, however denied today Discussed with patient at length today, he is amenable to SNF if not somewhere he has been before and after he research's them worked with PT yesterday, seems motivated Time Spent Managing Pts Care (In Minutes): 35
[2021-10-02 06:07] LABS: Protime INR 1.87
[2021-10-02 06:12] LABS: Magnesium 2.2 mg/dL (1.8-2.4); Potassium 3.7 mmol/L (3.5-5.1)
[2021-10-02] MEDS: INSULIN -REGULAR HUMAN 50 UNIT/0.5 ML ML SQ SCH ×5 (08:20→20:39)
[2021-10-02] MEDS: SERTRALINE HCL 50 MG TAB PO SCH (08:38)
[2021-10-02] MEDS: GABAPENTIN 300 MG CAP PO SCH ×2 (08:38→20:27)
[2021-10-02] MEDS: FE SULF/FA/VIT B COMP & C TAB PO SCH (08:38)
[2021-10-02] MEDS: GABAPENTIN 400 MG CAP PO SCH ×2 (08:38→20:27)
[2021-10-02] MEDS: PANTOPRAZOLE 40MG TABLET PO SCH (08:38)
[2021-10-02] MEDS: ASCORBIC ACID 500 MG TABLET PO SCH (08:38)
[2021-10-02] MEDS: FUROSEMIDE 40 MG/4 ML VIAL IV SCH ×2 (08:39→20:27)
[2021-10-02] MEDS: AMILORIDE HCL 5 MG TABLET PO SCH ×2 (08:39→20:35)
[2021-10-02] MEDS: DILTIAZEM HCL 120 MG SR CAP PO SCH ×2 (08:39→20:27)
[2021-10-02] MEDS: SENOSIDES 8.6 MG TAB PO SCH ×2 (08:39→20:26)
[2021-10-02] MEDS: levoFLOXacin 750 MG TAB PO SCH (08:40)
[2021-10-02] MEDS ORDERED: POTASSIUM CL SA 10 MEQ TAB PO ONE (09:00)
[2021-10-02] MEDS: HYDROCODONE/APAP 5/325 MG TAB PO PRN ×2 (10:38→20:44)
--- NOTE | 2021-10-02 14:14 | RAD REPORT ---
EXAM DESCRIPTION: RAD - Ankle Left 2 View - 10/02/2021 1:49 pm CLINICAL HISTORY: acute on chronic pain, anterolateral pain COMPARISON: Ankle Left 3 View dated 01/09/2019 FINDINGS: No acute fracture changes seen. No dislocation or periosteal reaction. There is inversion of the foot which may be due to positioning for the examination. This can be correlated with physical exam findings. Osteopenic changes are present throughout the distal left lower extremity, foot and a nkle region. Degenerative changes are present around the ankle joint with tibiotalar joint space main tained. Plantar and Achilles spurs are present. No pathologic bone process identifiable. Significant soft tissue swelling present around the distal leg. No air or foreign body in the soft ti ssues. IMPRESSION: Osteopenic and degenerative changes of the left foot and ankle a present as detailed wit h no fracture or acute bone process identifiable. Prominent soft tissue swelling without air or foreign body seen. Baseline for the patient is unknown.
--- NOTE | 2021-10-02 14:16 | RAD REPORT ---
EXAM DESCRIPTION: RAD - Knee Left 2 View - 10/02/2021 1:49 pm CLINICAL HISTORY: acute on chronic pain, medial aspect COMPARISON: December 2018 FINDINGS: Exam is limited due to film technique and very large body habitus overlying the knee joint . An acute fracture is not identified.No joint effusion is seen. Patient has very severe degenerative c hanges in the medial compartment with effacement of the joint space, sclerosis and marginal spurring. Significant patella femoral joint space narrowing present also with marginal spurring. No pathologic or destructive bone process seen. Soft tissues are edematous, probably baseline. No air or foreign body in the soft tissues. IMPRESSION: Severe knee joint degenerative change, most notable in the medial compartment, not subst antially different from 2019. No acute bone or joint finding confirmed.
[2021-10-02] MEDS: WARFARIN SODIUM 2.5 MG TAB PO SCH (17:18)
--- NOTE | 2021-10-02 20:33 | P.PN ---
Date of Service: 10/02/21 Vital Signs Temp Pulse Resp BP Pulse Ox 96.4 F L 78 17 127/58 L 97 10/02/21 16:29 10/02/21 16:29 10/02/21 16:29 10/02/21 16:29 10/02/21 16:29 Medications Acetaminophen (Acetaminophen 500 Mg Tab) 500 mg PO Q4HP PRN PRN Reason: Pain scale 2-4 (Mild) Last Admin: 09/25/21 10:36 Dose: 500 mg Documented by: Hydrocodone Bitart/Acetaminophen (Hydrocodone/Apap 5/325 Mg Tab) 1 tab PO Q6H PRN PRN Reason: Pain scale 5-7 (Moderate) Last Admin: 10/02/21 10:38 Dose: 1 tab Documented by: Albuterol Sulfate (Albuterol 2.5 Mg/3 Ml Neb Cristal) 2.5 mg NEB [id number] PRN PRN Reason: SHORTNESS OF BREATH Amiloride HCl (Amiloride Hcl 5 Mg Tablet) 10 mg PO BID [facility] Ascorbic Acid (Ascorbic Acid 500 Mg Tablet) 1,000 mg PO DAILY [facility] Last Admin: 10/02/21 08:38 Dose: 1,000 mg Documented by: Diltiazem HCl (Diltiazem Hcl 120 Mg Sr Cap) 120 mg PO BID [facility] Last Admin: 10/02/21 08:39 Dose: 120 mg Documented by: Furosemide (Furosemide 40 Mg/4 Ml Vial) 40 mg IV Q12H [facility] Last Admin: 10/02/21 08:39 Dose: 40 mg Documented by: Gabapentin (Gabapentin 400 Mg Cap) 400 mg PO BID [facility] Last Admin: 10/02/21 08:38 Dose: 400 mg Documented by: Gabapentin (Gabapentin 300 Mg Cap) 300 mg PO BID [facility] Last Admin: 10/02/21 08:38 Dose: 300 mg Documented by: Ferric Sodium Gluconate Complex 125 mg/ Sodium Chloride 110 mls @ 100 mls/hr IV 1X ONE Stop: 10/02/21 22:05 Insulin Human Regular (Insulin -Regular Human 50 Unit/0.5 Ml Ml) 0 unit SQ ACHS [facility]; Protocol Last Admin: 10/02/21 17:17 Dose: 2 unit Documented by: Levofloxacin (Levofloxacin 750 Mg Tab) 750 mg PO Q48H [facility] Stop: 10/10/21 09:01 Last Admin: 10/02/21 08:40 Dose: 750 mg Documented by: Multivitamins/Iron (Fe Sulf/Fa/Vit B Comp & C Tab) 1 tab PO DAILY WITH BREAKFAST [facility] Last Admin: 10/02/21 08:38 Dose: 1 tab Documented by: Nutritional Formula (Ensure High Protein 237 Ml Can) 237 ml PO BID PRN PRN Reason: Per patient request Last Admin: 09/28/21 14:50 Dose: 237 ml Documented by: Ondansetron HCl (Ondansetron 4 Mg/2 Ml Vial) 4 mg IV Q6HP PRN PRN Reason: NAUSEA / VOMITING Pantoprazole Sodium (Pantoprazole 40mg Tablet) 40 mg PO DAILY [facility] Last Admin: 10/02/21 08:38 Dose: 40 mg Documented by: Polyethylene Glycol (Polyethyl Gly 3350 17 Gm/Dose) 17 gm PO DAILY PRN PRN Reason: CONSTIPATION Senna (Senosides 8.6 Mg Tab) 17.2 mg PO BID [facility] Last Admin: 10/02/21 08:39 Dose: 17.2 mg Documented by: Sertraline HCl (Sertraline Hcl 50 Mg Tab) 75 mg PO DAILY [facility] Last Admin: 10/02/21 08:38 Dose: 75 mg Documented by: Sodium Chloride (Flush Normal Saline 10 Ml) 10 ml IV BID [facility] Last Admin: 10/02/21 08:39 Dose: 10 ml Documented by: Warfarin Sodium (Warfarin Sodium 2.5 Mg Tab) 2.5 mg PO DAILY 5 PM [facility] Last Admin: 10/02/21 17:18 Dose: 2.5 mg Documented by: Microbiology Results 09/24/21 16:50 Blood - Blood Aerobic Blood Culture - Final No growth in 5 days. 09/24/21 16:50 Blood - Blood Anaerobic Blood Culture - Final 09/24/21 16:50 Blood - Blood Gram Stain - Final 09/24/21 16:30 Blood - Blood Aerobic Blood Culture - Final 09/24/21 16:30 Blood - Blood Blood Culture Gram Stain - Final 09/24/21 16:30 Blood - Blood Anaerobic Blood Culture - Final No growth in 5 days. 09/24/21 17:53 Catheterized Urine [place] Count - Final >100,000 CFU/ML. 09/24/21 17:53 Catheterized Urine - Final Escherichia Coli Enterococcus Faecium Acinetobacter Gianni/Haem Assessment/ Plan: Nephrology Progress Note Good urine output No dyspnea. FINK No chest pain No acute events overnight Vitals, medications blood work and imaging reviewed in the chart General: Oriented x3, Cooperative HEENT: Atraumatic, Mucous membr. moist/pink Neck: Supple, JVD distended Respiratory: Diminished Cardiovascular: Regular rate/rhythm, Edema Gastrointestinal: Soft and benign, Non-distended Musculoskeletal: No clubbing, No contractures Integumentary: No cyanosis, Skin breakdown, Skin lesion Neurological: Normal speech Blood work reviewed in the chart. Imagings Data: EXAM DESCRIPTION: RAD - Chest Single View - 09/24/2021 5:00 pm CLINICAL HISTORY: DYSPNEA COMPARISON: Chest Single View dated 12/13/2019; Chest Single View dated 07/12/2019; Chest Single View dated 01/17/2019; Chest Single View dated 01/16/2019 FINDINGS: Lines: None. Lungs: Diffuse pulmonary opacities bilaterally. Pleural: Layering bilateral pleural effusions. Cardiac: Cardiomegaly. Bones: No acute fractures. Other: IMPRESSION: Findings most consistent with pulmonary edema with bilateral pleural effusions. EXAM DESCRIPTION: CTAbdomen Pelvis W Contrast - 09/24/2021 5:37 pm CLINICAL HISTORY: ABD PAIN COMPARISON: Abdomen Pelvis W Contrast dated 08/21/2016; CT ABD PELVIS W CONTRAST dated 07/08/2014; CT ABD PELVIS W CONTRAST dated 06/25/2014 TECHNIQUE: CT of the abdomen and pelvis was performed. All CT scans are performed using dose optimization technique as appropriate and may include automated exposure control or mA/KV adjustment according to patient size. FINDINGS: Lower chest: Bilateral pleural effusions. Cardiomegaly. Coronary artery calcifications. Dependent atelectasis. Liver: Hepatic steatosis. Mild intrahepatic biliary duct dilatation is likely related to the postcholecystectomy state. Biliary: Cholecystectomy. Extrahepatic biliary ductal dilatation may be related to the postcholecystectomy state. Stomach: Surgical changes along the stomach. Duodenum: No significant focal abnormality. Pancreas: No significant abnormality. Spleen: No significant abnormality. Adrenal: No suspicious lesions. Kidney/ureter: No hydronephrosis. No renal calculi. Retroperitoneum: No retroperitoneal adenopathy. Vascular: IVC filter. Atherosclerosis. No aneurysm. Bowel: No significant focal abnormality. Peritoneum: No ascites or free air. Pronounced abdominal wall laxity. Bladder: Trace bladder gas which is likely due to instrumentation. Reproductive: No adnexal masses. Bones: No acute fracture. Heterotopic ossification adjacent to the left iliac bone is unchanged. Multilevel degenerative changes are present in the spine. Other: n/a IMPRESSION: No acute intra-abdominal or pelvic finding. Bilateral pleural effusions and probably underlying atelectasis which may be secondary to heart failure. Conclusions/Impression: KAYLAH in the setting of diuresis CKD III -No NSAIDs Hyponatremia -Continue Lasix 40mg IV q12h -Continue fluid restriction Hypokalemia -Replete potassium prn -Increase Amiloride 20mg BID Alkalosis in the setting of diuresis -Increase Amiloride 20mg BID -Diamox prn HTN complicated by hypotension -Hold antihypertensives Diastolic CHF, A/C -2g sodium diet -Fluid restriction -Continue Lasix 40mg IV q12h -Continue Amiloride BID DM II with hyperglycemia -RISS Moderate malnutrition -Protein supplementation Anemia in chronic illness Iron deficiency -Give a dose of IV iron Atherosclerosis of the aorta Acute cystitis -Continue Levaquin Case reviewed with Dr. Duarte
[2021-10-02] MEDS ORDERED: SOD FERRIC GLUC COMPLX/SUCROSE 125 MG in NA CHLORIDE 0.9% 100 ML IV ONE (21:00)
[2021-10-02 21:43] LABS: Vitamin D 1,25-Dihydroxy Total 25 pg/mL (18-72); Vitamin D,1,25-OH2, D2 <8 pg/mL
[2021-10-03 06:06] LABS: Hematocrit 36.2 % (39.6-49.0); MPV 7.4 fL (7.6-11.3); RBC Red Blood Cell Count 3.78 M/uL (4.33-5.43)
[2021-10-03 06:07] LABS: Protime INR 1.94
[2021-10-03 06:16] LABS: Potassium 3.7 mmol/L (3.5-5.1)
[2021-10-03] MEDS: HYDROCODONE/APAP 5/325 MG TAB PO PRN (06:39)
[2021-10-03] MEDS: INSULIN -REGULAR HUMAN 50 UNIT/0.5 ML ML SQ SCH ×3 (07:30→21:00)
[2021-10-03] MEDS: FE SULF/FA/VIT B COMP & C TAB PO SCH (08:00)
[2021-10-03] MEDS ORDERED: POTASSIUM CL SA 10 MEQ TAB PO ONE (09:00)
[2021-10-03] MEDS: SENOSIDES 8.6 MG TAB PO SCH ×2 (09:00→21:08)
[2021-10-03] MEDS: PANTOPRAZOLE 40MG TABLET PO SCH (09:00)
[2021-10-03] MEDS: GABAPENTIN 400 MG CAP PO SCH ×2 (09:00→21:08)
[2021-10-03] MEDS: AMILORIDE HCL 5 MG TABLET PO SCH ×2 (09:00→21:08)
[2021-10-03] MEDS: GABAPENTIN 300 MG CAP PO SCH ×2 (10:16→21:09)
[2021-10-03] MEDS: SERTRALINE HCL 50 MG TAB PO SCH (10:17)
[2021-10-03] MEDS: ASCORBIC ACID 500 MG TABLET PO SCH (10:17)
[2021-10-03] MEDS: DILTIAZEM HCL 120 MG SR CAP PO SCH ×2 (10:18→21:08)
[2021-10-03] MEDS: FUROSEMIDE 40 MG/4 ML VIAL IV SCH ×2 (10:19→21:09)
[2021-10-03] MEDS ORDERED: SOD FERRIC GLUC COMPLX/SUCROSE 250 MG in NA CHLORIDE 0.9% 250 ML IV ONE (11:00)
--- NOTE | 2021-10-03 14:55 | P.PN ---
Date of Service: 10/03/21 Subjective: No acute events overnight Continues to have edema improving Renal function stable Reports some improvement in his left knee/ankle pain with rest Reports small amount of bleeding in the left groin/inguinalabdominal skin fold Wean off oxygen overnight ROS: 10 point ROS as noted above, otherwise negative Physical exam GEN: Alert, oriented HEENT: Normal conjunctiva, sclera anicteric CV: Irregularly irregular rhythm, 2+ edema b/l lower extremities Pulm: Nonlabored respiration on room air ABD: Soft, nontender, nondistended Integumentary: Bilateral lower extremity venous stasis dermatitis. Small 2 cm x 0.5 cm superficial skin tear in the left inguinal/abdominal fold, no signs of infection MSK: tenderness to palpation on L knee medial aspect in area of Pes Anserine bursa. L ankle: tenderness to palpation anterolateral ankle, no skin changes. no pain with flexion/extension Neuro: Normal speech, normal affect, bedbound, generalized weakness Problem List Acute hypoxemic respiratory failure secondary to acute on chronic diastolic congestive heart failure Urinary tract infection KAYLAH on CKD 3 Chronic atrial fibrillation on coumadin Chronic indwelling Sims catheter History of PE Hypertension Chronic lymphedema Edema and oxygen requirement overall improving Nephrology consulted and assisting with diuresis, continue Lasix and amiloride per recommendations, renal function stable Continue fluid restriction and lasix Weaned off oxygen Urine culture: Multiple bacteria growth all sensitive to Levaquin. Continue oral Levaquin. Exchange sims Continue PT. Continue Cardizem for A. fib. Continue Coumadin. Pharmacy is dosing Coumadin taken into consideration interaction with Levaquin. Monitor PT/INR daily. Continue gabapentin [place] as needed for pain. Pain of the left knee and ankle were acute on chronic, reports just increased in severity. X-rays with severe arthritic changes Dispo: Patient requested for rehab placement, however denied Patient amenable to SNF, social work consulted Time Spent Managing Pts Care (In Minutes): 35
--- NOTE | 2021-10-03 16:23 | P.PN ---
Date of Service: 10/03/21 Vital Signs Temp Pulse Resp BP Pulse Ox 97 F 87 18 123/66 91 10/03/21 12:00 10/03/21 12:00 10/03/21 12:00 10/03/21 12:00 10/03/21 12:00 Medications Acetaminophen (Acetaminophen 500 Mg Tab) 500 mg PO Q4HP PRN PRN Reason: Pain scale 2-4 (Mild) Last Admin: 09/25/21 10:36 Dose: 500 mg Documented by: Hydrocodone Bitart/Acetaminophen (Hydrocodone/Apap 5/325 Mg Tab) 1 tab PO Q6H PRN PRN Reason: Pain scale 5-7 (Moderate) Last Admin: 10/03/21 06:39 Dose: 1 tab Documented by: Albuterol Sulfate (Albuterol 2.5 Mg/3 Ml Neb Cristal) 2.5 mg NEB [id number] PRN PRN Reason: SHORTNESS OF BREATH Amiloride HCl (Amiloride Hcl 5 Mg Tablet) 10 mg PO BID [facility] Last Admin: 10/03/21 09:00 Dose: 10 mg Documented by: Ascorbic Acid (Ascorbic Acid 500 Mg Tablet) 1,000 mg PO DAILY [facility] Last Admin: 10/03/21 10:17 Dose: 1,000 mg Documented by: Cholecalciferol (Vitamin D 5,000 Unit Cap) 5,000 unit PO DAILY [facility] Diltiazem HCl (Diltiazem Hcl 120 Mg Sr Cap) 120 mg PO BID [facility] Last Admin: 10/03/21 10:18 Dose: 120 mg Documented by: Furosemide (Furosemide 40 Mg/4 Ml Vial) 40 mg IV Q12H [facility] Last Admin: 10/03/21 10:19 Dose: 40 mg Documented by: Gabapentin (Gabapentin 400 Mg Cap) 400 mg PO BID [facility] Last Admin: 10/03/21 09:00 Dose: 400 mg Documented by: Gabapentin (Gabapentin 300 Mg Cap) 300 mg PO BID [facility] Last Admin: 10/03/21 10:16 Dose: 300 mg Documented by: Insulin Human Regular (Insulin -Regular Human 50 Unit/0.5 Ml Ml) 0 unit SQ [facility]; Protocol Last Admin: 10/03/21 07:30 Dose: 100 unit Documented by: Levofloxacin (Levofloxacin 750 Mg Tab) 750 mg PO Q48H [facility] Stop: 10/10/21 09:01 Last Admin: 10/02/21 08:40 Dose: 750 mg Documented by: Multivitamins/Iron (Fe Sulf/Fa/Vit B Comp & C Tab) 1 tab PO DAILY WITH BREAKFAST [facility] Last Admin: 10/03/21 08:00 Dose: 1 tab Documented by: Nutritional Formula (Ensure High Protein 237 Ml Can) 237 ml PO BID PRN PRN Reason: Per patient request Last Admin: 09/28/21 14:50 Dose: 237 ml Documented by: Ondansetron HCl (Ondansetron 4 Mg/2 Ml Vial) 4 mg IV Q6HP PRN PRN Reason: NAUSEA / VOMITING Pantoprazole Sodium (Pantoprazole 40mg Tablet) 40 mg PO DAILY [facility] Last Admin: 10/03/21 09:00 Dose: 40 mg Documented by: Polyethylene Glycol (Polyethyl Gly 3350 17 Gm/Dose) 17 gm PO DAILY PRN PRN Reason: CONSTIPATION Senna (Senosides 8.6 Mg Tab) 17.2 mg PO BID [facility] Last Admin: 10/03/21 09:00 Dose: 17.2 mg Documented by: Sertraline HCl (Sertraline Hcl 50 Mg Tab) 75 mg PO DAILY [facility] Last Admin: 10/03/21 10:17 Dose: 75 mg Documented by: Sodium Chloride (Flush Normal Saline 10 Ml) 10 ml IV BID [facility] Last Admin: 10/03/21 09:00 Dose: 10 ml Documented by: Warfarin Sodium (Warfarin Sodium 2.5 Mg Tab) 2.5 mg PO DAILY 5 PM [facility] Last Admin: 10/02/21 17:18 Dose: 2.5 mg Documented by: Microbiology Results 09/24/21 16:50 Blood - Blood Aerobic Blood Culture - Final No growth in 5 days. 09/24/21 16:50 Blood - Blood Anaerobic Blood Culture - Final 09/24/21 16:50 Blood - Blood Gram Stain - Final 09/24/21 16:30 Blood - Blood Aerobic Blood Culture - Final 09/24/21 16:30 Blood - Blood Blood Culture Gram Stain - Final 09/24/21 16:30 Blood - Blood Anaerobic Blood Culture - Final No growth in 5 days. 09/24/21 17:53 Catheterized Urine [place] Count - Final >100,000 CFU/ML. 09/24/21 17:53 Catheterized Urine - Final Escherichia Coli Enterococcus Faecium Acinetobacter Gianni/Haem Assessment/ Plan: Nephrology Progress Note Good urine output and feeling better. No dyspnea. FINK No chest pain No acute events overnight Vitals, medications blood work and imaging reviewed in the chart General: Oriented x3, Cooperative HEENT: Atraumatic, Mucous membr. moist/pink Neck: Supple, JVD distended Respiratory: Diminished Cardiovascular: Regular rate/rhythm, Edema Gastrointestinal: Soft and benign, Non-distended Musculoskeletal: No clubbing, No contractures Integumentary: No cyanosis, Skin breakdown, Skin lesion Neurological: Normal speech Blood work reviewed in the chart. Imagings Data: EXAM DESCRIPTION: RAD - Chest Single View - 09/24/2021 5:00 pm CLINICAL HISTORY: DYSPNEA COMPARISON: Chest Single View dated 12/13/2019; Chest Single View dated 07/12/2019; Chest Single View dated 01/17/2019; Chest Single View dated 01/16/2019 FINDINGS: Lines: None. Lungs: Diffuse pulmonary opacities bilaterally. Pleural: Layering bilateral pleural effusions. Cardiac: Cardiomegaly. Bones: No acute fractures. Other: IMPRESSION: Findings most consistent with pulmonary edema with bilateral pleural effusions. EXAM DESCRIPTION: CTAbdomen Pelvis W Contrast - 09/24/2021 5:37 pm CLINICAL HISTORY: ABD PAIN COMPARISON: Abdomen Pelvis W Contrast dated 08/21/2016; CT ABD PELVIS W CONTRAST dated 07/08/2014; CT ABD PELVIS W CONTRAST dated 06/25/2014 TECHNIQUE: CT of the abdomen and pelvis was performed. All CT scans are performed using dose optimization technique as appropriate and may include automated exposure control or mA/KV adjustment according to patient size. FINDINGS: Lower chest: Bilateral pleural effusions. Cardiomegaly. Coronary artery calcifications. Dependent atelectasis. Liver: Hepatic steatosis. Mild intrahepatic biliary duct dilatation is likely related to the postcholecystectomy state. Biliary: Cholecystectomy. Extrahepatic biliary ductal dilatation may be related to the postcholecystectomy state. Stomach: Surgical changes along the stomach. Duodenum: No significant focal abnormality. Pancreas: No significant abnormality. Spleen: No significant abnormality. Adrenal: No suspicious lesions. Kidney/ureter: No hydronephrosis. No renal calculi. Retroperitoneum: No retroperitoneal adenopathy. Vascular: IVC filter. Atherosclerosis. No aneurysm. Bowel: No significant focal abnormality. Peritoneum: No ascites or free air. Pronounced abdominal wall laxity. Bladder: Trace bladder gas which is likely due to instrumentation. Reproductive: No adnexal masses. Bones: No acute fracture. Heterotopic ossification adjacent to the left iliac cesar ne is unchanged. Multilevel degenerative changes are present in the spine. Other: n/a IMPRESSION: No acute intra-abdominal or pelvic finding. Bilateral pleural effusions and probably underlying atelectasis which may be secondary to heart failure. Conclusions/Impression: KAYLAH in the setting of diuresis CKD III -No NSAIDs Hyponatremia -Change Bumex 2mg BID -Continue fluid restriction Hypokalemia -Replete potassium prn -Continue Amiloride 10mg BID Alkalosis in the setting of diuresis -Continue Amiloride 10mg BID -Diamox prn HTN complicated by hypotension -Hold antihypertensives Diastolic CHF, A/C -2g sodium diet -Fluid restriction -Change to Bumex 2mg BID -Continue Amiloride BID DM II with hyperglycemia -RISS Moderate malnutrition -Protein supplementation Anemia in chronic illness Iron deficiency -Give a dose of IV iron Atherosclerosis of the aorta Acute cystitis -Continue Levaquin Case reviewed with Dr. Duarte
[2021-10-03] MEDS: WARFARIN SODIUM 2.5 MG TAB PO SCH (17:00)
[2021-10-03] MEDS: VITAMIN D 5,000 UNIT CAP PO SCH (17:13)
--- NOTE | 2021-10-04 05:50 | P.PN ---
Date of Service: 10/04/21 Subjective: improving, pain has improved, but continues to be intermittent Breathing more comfortably, edema improving, no symptoms/complaints ROS: 10 point ROS as noted above, otherwise negative Physical exam GEN: Alert, oriented HEENT: Normal conjunctiva, sclera anicteric CV: Irregularly irregular rhythm, 2+ edema b/l lower extremities Pulm: Nonlabored respiration on room air ABD: Soft, nontender, nondistended Integumentary: Bilateral lower extremity venous stasis dermatitis. Small 2 cm x 0.5 cm superficial skin tear in the left inguinal/abdominal fold, no signs of infection MSK: tenderness to palpation on L knee medial aspect. L ankle: nontender Neuro: Normal speech, normal affect, bedbound, generalized weakness Problem List Acute hypoxemic respiratory failure secondary to acute on chronic diastolic congestive heart failure Urinary tract infection KAYLAH on CKD 3 Chronic atrial fibrillation on coumadin Chronic indwelling Sims catheter History of PE Hypertension Chronic lymphedema Edema and oxygen requirement improving Nephrology consulted and assisting with diuresis, continue bumex / amiloride per recommendations, renal function stable Continue fluid restriction and lasix Weaned off oxygen Urine culture: Multiple bacteria growth all sensitive to Levaquin. Continue oral Levaquin. Exchange sims Continue PT. Continue Cardizem for A. fib. Continue Coumadin. Pharmacy is dosing Coumadin taken into consideration interaction with Levaquin. Monitor PT/INR daily. Continue gabapentin [place] as needed for pain. Pain of the left knee and ankle were acute on chronic, reports just increased in severity. X-rays with severe arthritic changes Dispo: Patient requested for rehab placement, however denied Patient amenable to SNF, social work consulted. pending auth Time Spent Managing Pts Care (In Minutes): 35
[2021-10-04 06:10] LABS: Protime INR 2.05
[2021-10-04] MEDS: BUMETANIDE 1 MG TABLET PO SCH ×3 (06:13→17:00)
[2021-10-04 06:20] LABS: Potassium 4.1 mmol/L (3.5-5.1)
[2021-10-04] MEDS: INSULIN -REGULAR HUMAN 50 UNIT/0.5 ML ML SQ SCH ×4 (07:30→20:03)
[2021-10-04] MEDS: GABAPENTIN 400 MG CAP PO SCH ×2 (08:50→20:02)
[2021-10-04] MEDS: AMILORIDE HCL 5 MG TABLET PO SCH ×2 (08:50→20:02)
[2021-10-04] MEDS: VITAMIN D 5,000 UNIT CAP PO SCH (08:51)
[2021-10-04] MEDS: levoFLOXacin 750 MG TAB PO SCH (08:51)
[2021-10-04] MEDS: DILTIAZEM HCL 120 MG SR CAP PO SCH ×2 (08:51→20:02)
[2021-10-04] MEDS: SENOSIDES 8.6 MG TAB PO SCH ×2 (08:52→20:02)
[2021-10-04] MEDS: ASCORBIC ACID 500 MG TABLET PO SCH (08:52)
[2021-10-04] MEDS: SERTRALINE HCL 50 MG TAB PO SCH (08:52)
[2021-10-04] MEDS: FE SULF/FA/VIT B COMP & C TAB PO SCH (08:52)
[2021-10-04] MEDS: PANTOPRAZOLE 40MG TABLET PO SCH (08:52)
[2021-10-04] MEDS: GABAPENTIN 300 MG CAP PO SCH ×2 (08:52→20:02)
--- OUTSIDE RECORDS SUMMARY | 2021-10-04 10:01 | XMS REPORT | Continuity of Care Document ---
:1940 Author Organization [facility] t Address [address] [place] [address] Care Team Providers Name Role Phone Parker Maguire Attending Clinician Unavailable ALAMO Attending Clinician Unavailable BRITTNEY JASSO Attending Clinician Unavailable Alamo, Berna Admitting Clinician Unavailable BRITTNEY JASSO Admitting Clinician Unavailable Payers Payer Name Policy Type Policy Number Effective Date Expiration Date S ource Problems This patient has no known problems. Allergies, Adverse Reactions, Alerts Allergy Allergy Status Severity Reaction(s) Onset Inactive Treating Comm ents Source Name Type Date Date Clinician Sulfa DA Active U 2019-0 [facility] ([facility] -[facility] [place] [facility] 00:00: d Antibiot 00 [facility] Sulfa DA Active U HIVES 2020-0 [facility] ([facility] -[facility] [place] [facility] 00:00: d Antibiot 00 [facility] ics[facility] Center CLINDAMY DA Active U 2006-0 [facility] ELIZA - [place] 00:[facility]: d 00 [facility] GABAPENT DA Active U 2006-0 [facility] IN - [place] 00:[facility]: d 00 [facility] Center No Known DA Active U 2006-0 [facility] Contrast 6- [place] Allergie 00:00: d s 00 Medical Center No Known DA Active U 2007-0 [facility] Food - [place] Allergie 00:00: d s 00 [facility] Center No Known DA Active U 2006-0 [facility] Other 6- [place] Allergie 00:00: d s 00 Medical Center PROZAC DA Active U 2006-0 [facility] - [place] 00:00: d 00 [facility] chlorpro DA Active U 2006-0 [facility] mazine - [place] 00:00: d 00 [facility] Center fluoxeti DA Active U 2006- [facility] ne 04-25 [place] 00:00: d 00 [facility] Not DA Active U 2006- [facility] Converte 04-25 [facility] 891. 00:00: d See 00 Medical Text. Center Medications This patient has no known medications. Procedures This patient has no known procedures. Encounters Start End Encounter Admission Attending Care Care Encounter Source Date/Time Date/Time Type Type Clinicians Facility Department ID 2020-05-16 Inpatient PEPE Singer RADI [id number] [facility] 13:00:00 Zhou [id number] [facility] [place], operated by [facility] 2021-08-08 2021-08-08 Outpatient ALAMO, [facility] [id number] [place] 00:00:00 00:00:[address] 2021-06-20 2021-06-20 Outpatient ALAMO, [facility] [id number] [address] [place] 00:00:00 00:00:[address] 2021-02-11 2021-02-11 Outpatient ALAMO, [facility] [id number] [place] 00:00:00 00:00:[address] 2020-11-12 2020-11-12 Outpatient ALAMO, [facility] [id number] [address] [place] 00:00:00 00:00:[address] 2020-07-19 2020-07-19 Outpatient ALAMO, [facility] [id number] [place] 00:00:00 00:00:00 [address] 2020-04-08 2020-04-08 Outpatient DELGADO SingerPM RADI [id number] [facility] 15:04:00 15:04:00 Zhou [id number] [facility] 2020-04-08 2020-04-08 Outpatient DELGADO SingerPM RADI [id number] [facility] 15:04:00 15:04:00 Zhou [id number] [facility] 2020-02-26 2020-02-26 Outpatient ALAMO, [facility] [id number] [place] 00:00:00 00:00:[address] 2020-02-07 2020-02-07 Outpatient ALAMO, [facility] [id number] [place] 00:00:00 00:00:[address] Results Test Description Test Time Test Comments Results Result Sourc e Comments - US OTHER DX US 2020-05-16 Name: AMINTA RAJAN PROCEDURE 14:45:00 EN [place] : 1940 Age/S: 79 / M [id number] Unit #: [id number] Loc: [place] [address] Phys: Zhou Maguire MD Acct: [id number] Dis Date: Status: REG CLI PHONE #: [phone] Exam Date: 05/16/2020 1400 FAX #: Reason: OSTEOARTHRITIS OF LEFT KNEE EXAMS: CPT: [id number] US OTHER DX US PROCEDURE 14040 PROCEDURE: IMAGE-GUIDED JOINT INJECTION. LOCATION: S17. HISTORY: Left knee osteoarthritis/pain, request is made for injection by orthopedics. COMPARISON: Left knee x-ray 04/08/20. SEDATION: The patient did not require conscious sedation for the procedure. TECHNIQUE: Risks, benefits, and alternatives were explained to the patient and informed consent was obtained. The patient was prepped in the usual sterile fashion. Sterile barriers including cap, mask, sterile gloves, and cutaneous antisepsis were utilized. Patient was placed in the supine position. Ultrasound was used to determine an appropriate access into the left knee joint. Using real-time ultrasound guidance, a needle was advanced into the small left knee joint effusion. Subsequently, an admixture of 40 mg Kenalog and 0.5 % bupivacaine were injected into the joint. The needle was then removed. The patient tolerated the procedure well. ESTIMATED BLOOD LOSS: Less than 5 mL. COMPLICATIONS: None. DISCHARGED TO: Home. FINDINGS: Ultrasound demonstrates appropriate needle placement into the left knee joint. IMPRESSION: Successful image-guided joint injection for osteoarthritis. PAGE 1 Signed Report (CONTINUED) Name: AMINTA RAJAN : 1940 Age/S: 79 / M [id number] Unit #: [id number] Loc: [place] [address] Phys: Zhou Maguire MD Acct: [id number] Dis Date: Status: REG CLI PHONE #: [phone] Exam Date: 05/16/2020 1400 FAX #: Reason: OSTEOARTHRITIS OF LEFT KNEE EXAMS: CPT: [id number] US OTHER DX US PROCEDURE 02433 <Continued> at 1445 Reported and signed by: Otliio Jimenez M.D. CC: Suzette Alamo MD; Zhou Maguire MD Technologist: Carole Mir Trntnb Date/Time: 05/16/2020 (7295) [email or web address] PAGE 2 Signed Report Name: AMINTA RAJANland : 1940 Age/S: 79 / M [address] Unit #: [id number] Loc: [place] [address] Phys: Zhou Maguire MD Acct: [id number] Dis Date: Status: REG CLI PHONE #: [phone] Exam Date: 05/16/2020 1400 FAX #: Reason: OSTEOARTHRITIS OF LEFT KNEE EXAMS: CPT: [id number] US OTHER DX US PROCEDURE 94628 <Continued> Orig Print D/T: S: 05/16/2020 (3110) Probe: PAGE 3 Signed Report - XR KNEE 3 V LT 2020-04-08 Name: AMINTA RAJAN 16:44:00 EN GONZALEZ [place] : 1940 Age/S: 79 / M [address] Unit #: [id number] Loc: [place] [address] Phys: Zhou Maguire MD Acct: [id number] Dis Date: Status: REG CLI PHONE #: [phone] Exam Date: 04/08/2020 1538 FAX #: Reason: osteoarthritis of lt knee joint EXAMS: CPT: [id number] XR KN[place] 3 [place] [address] Fluoro Time: DAP (Gy m2): Air Kerma (mGy): Location code: H5 Left knee 2 views: Indication: osteoarthritis of lt knee joint Comparison: none. Findings: Oblique and crosstable lateral views. No evidence of fracture, subluxation, or dislocation. Severe narrowing of the medial knee joint compartment, with cortical surface irregularity and genu varus. Mild narrowing of the lateral knee joint space. Moderate medial hypertrophic spurring. Osteopenia. No obvious joint effusion. IMPRESSION: Severe osteoarthritis. Genu varus. at 1644 Reported and signed by: Hosea Ulloa M.D. CC: Suzette Alamo MD; Zhou Maguire MD PAGE 1 Signed Report Name: AMINTA RAJAN [facility] : 1940 Age/S: 79 / M [id number] Unit #: [id number] Loc: [place] [address] Phys: Zhou Maguire MD Acct: [id number] Dis Date: Status: REG CLI PHONE #: [phone] Exam Date: 04/08/2020 1532 FAX #: Reason: osteoarthritis of lt knee joint EXAMS: CPT: [id number] XR KNEE 3 [place] [address] Fluoro Time: DAP (Gy m2): Air Kerma (mGy): <Continued> Technologist: Matilda Angela, RT(R)(CT); Melissa Oneill RT(R) Trntnb Date/Time: 04/08/2020 (1643) t.MARIA [email or web address] Orig Print D/T: S: 04/08/2020 (285) PAGE 2 Signed Report - XR KNEE 3 V LT 2020-04-08 Name: AMINTA RAJAN 16:44:00 EN [facility] : 1940 Age/S: 79 / M [address] Unit #: [id number] Loc: [place] [address] Phys: Zhou Maguire MD Acct: [id number] Dis Date: Status: DEP CLI PHONE #: [phone] Exam Date: 04/08/2020 1534 FAX #: Reason: osteoarthritis of lt knee joint EXAMS: CPT: [id number] XR KNEE 3 [place] [address] Fluoro Time: DAP (Gy m2): Air Kerma (mGy): Location code: H5 Left knee 2 views: Indication: osteoarthritis of lt knee joint Comparison: none. Findings: Oblique and crosstable lateral views. No evidence of fracture, subluxation, or dislocation. Severe narrowing of the medial knee joint compartment, with cortical surface irregularity and genu varus. Mild narrowing of the lateral knee joint space. Moderate medial hypertrophic spurring. Osteopenia. No obvious joint effusion. IMPRESSION: Severe osteoarthritis. Genu varus. at 1644 Reported and signed by: Hosea Ulloa M.D. CC: Suzette Alamo MD; Zhou Maguire MD PAGE 1 Signed Report Name: AMINTA RAJAN [facility] : 1940 Age/S: 79 / M [id number] Unit #: [id number] Loc: [place] [address] Phys: Zhou Maguire MD Acct: [id number] Dis Date: Status: DEP CLI PHONE #: [phone] Exam Date: 04/08/2020 1532 FAX #: Reason: osteoarthritis of lt knee joint EXAMS: CPT: [id number] XR KNEE 3 [place] [address]91 Fluoro Time: DAP (Gy m2): Air Kerma (mGy): <Continued> Technologist: Matilda Angela, RT(R)(CT); Melissa Oneill RT(R) [facility] [place] Date/Time: 04/08/2020 (1643) [email or web address] Orig Print D/T: S: 04/08/2020 (666) PAGE 2 Signed Report - XR HIP W/PEL UNI 2020-04-08 Name: AMINTA RAJAN 2+V LT 16:41:00 EN [facility] : 1940 Age/S: 79 / M [address] Unit #: [id number] Loc: [place] [address] Phys: Zhou Maguire MD Acct: [id number] Dis Date: Status: REG CLI PHONE #: [phone] Exam Date: 04/08/2020 1523 FAX #: Reason: unilateral primary osteoarthritis EXAMS: CPT: [id number] XR HIP W/PEL UNI 2+[place] [address] Fluoro Time: DAP (Gy m2): Air Kerma (mGy): Site ID: [id number] HISTORY: M 17.12 IMPRESSION: Single relative frog leg AP view of the left hip demonstrates moderately advanced osteoarthritis with fairly prominent hypertrophic acetabular osteophytosis at 1641 Reported and signed by: Angel Dixon M.D. CC: Suzette Alamo MD; Zhou Maguire MD PAGE 1 Signed Report Name: AMINTA RAJAN [facility] : 1940 Age/S: 79 / M [address] Unit #: [id number] Loc: [place] [address] Phys: Zhou Maguire MD Acct: [id number] Dis Date: Status: REG CLI PHONE #: [phone] Exam Date: 04/08/2020 1523 FAX #: Reason: unilateral primary osteoarthritis EXAMS: CPT: [id number] XR HIP W/PEL UNI 2+[place] [address] Fluoro Time: DAP (Gy m2): Air Kerma (mGy): <Continued> Technologist: Matilda Angela RT(R)(CT); Melissa Oneill RT(R) [facility] Date/Time: 04/08/2020 (1640) t.MARIA [email or web address] Orig Print D/T: S: 04/08/2020 (1644) PAGE 2 Signed Report - XR HIP W/PEL UNI 2020-04-08 Name: AMINTA RAJAN 2+V LT 16:41:00 EN [facility] : 1940 Age/S: 79 / M [address] Unit #: [id number] Loc: [place] [address] Phys: Zhou Maguire MD Acct: [id number] Dis Date: Status: DEP CLI PHONE #: [phone] Exam Date: 04/08/2020 1523 FAX #: Reason: unilateral primary osteoarthritis EXAMS: CPT: [id number] XR HIP W/PEL UNI 2+[place] [address] Fluoro Time: DAP (Gy m2): Air Kerma (mGy): Site ID: T18 HISTORY: M 17.12 IMPRESSION: Single relative frog leg AP view of the left hip demonstrates moderately advanced osteoarthritis with fairly prominent hypertrophic acetabular osteophytosis at 1641 Reported and signed by: Angel Dixon M.D. CC: Suzette Alamo MD; Zhou Maguire MD PAGE 1 Signed Report Name: AMINTA RAJAN [facility] : 1940 Age/S: 79 / M [address] Unit #: [id number] Loc: [place] [address] Phys: Zhou Maguire MD Acct: [id number] Dis Date: Status: DEP CLI PHONE #: [phone] Exam Date: 04/08/2020 1523 FAX #: Reason: unilateral primary osteoarthritis EXAMS: CPT: [id number] XR HIP W/PEL UNI 2+[place] [address] Fluoro Time: DAP (Gy m2): Air Kerma (mGy): <Continued> Technologist: Matilda Angela, RT(R)(CT); Melissa Oneill, RT(R) [facility] Date/Time: 04/08/2020 (1640) [email or web address] Orig Print D/T: S: 04/08/2020 (1643) PAGE 2 Signed Report - XR FOOT 3+V LT 2020-04-08 Name: AMINTA RAJAN 16:34:00 [facility] [place] [facility] 1940 Age/S: 79 / M [address] Unit #: [id number] Loc: [place] [address] Phys: Zhou Maguire MD Acct: [id number] Dis Date: Status: REG CLI PHONE #: [phone] Exam Date: 04/08/2020 1540 FAX #: Reason: unilateral primary osteoarthritis EXAMS: CPT: [id number] XR FOOT 3+[place] [address] Fluoro Time: DAP (Gy m2): Air Kerma (mGy): LOCATION: T18 EXAM: - XR FOOT 3+V LT EXAM: - XR ANKLE 3+V LT INDICATION: unilateral primary osteoarthritis, COMPARISON: None. TECHNIQUE: AP and lateral radiographs of the left ankle and foot FINDINGS: Osteopenia noted throughout. No acute fracture. Extensive soft tissue swelling throughout the ankle and foot. Vascular calcifications noted throughout as well. No subcutaneous air identified. IMPRESSION: Extensive osteopenia and soft tissue swelling throughout the left ankle and foot. at 1634 Reported and signed by: John Becerra M.D. CC: Suzette Alamo MD; Zhou Maguire MD PAGE 1 Signed Report Name: AMINTA RAJAN [facility] : 1940 Age/S: 79 / M [address] Unit #: [id number] Loc: [place] [address] Phys: Zhou Maguire MD Acct: [id number] Dis Date: Status: REG CLI PHONE #: [phone] Exam Date: 04/08/2020 1544 FAX #: Reason: unilateral primary osteoarthritis EXAMS: CPT: [id number] XR FOOT 3+[place] [address] Fluoro Time: DAP (Gy m2): Air Kerma (mGy): <Continued> Technologist: Matilda Angela, RT(R)(CT); Melissa Oneill RT(R) Trntnb Date/Time: 04/08/2020 (163) [email or web address] Orig Print D/T: S: 04/08/2020 (6443) PAGE 2 Signed Report - XR FOOT 3+V LT 2020-04-08 Name: AMINTA RAJAN 16:34:00 EN [facility] : 1940 Age/S: 79 / M [address] Unit #: [id number] Loc: [place] [address] Phys: Zhou Maguire MD Acct: [id number] Dis Date: Status: DEP CLI PHONE #: [phone] Exam Date: 04/08/2020 1540 FAX #: Reason: unilateral primary osteoarthritis EXAMS: CPT: [id number] XR FOOT 3+[place] [address]759 Fluoro Time: DAP (Gy m2): Air Kerma (mGy): LOCATION: T18 EXAM: - XR FOOT 3+V LT EXAM: - XR ANKLE 3+V LT INDICATION: unilateral primary osteoarthritis, COMPARISON: None. TECHNIQUE: AP and lateral radiographs of the left ankle and foot FINDINGS: Osteopenia noted throughout. No acute fracture. Extensive soft tissue swelling throughout the ankle and foot. Vascular calcifications noted throughout as well. No subcutaneous air identified. IMPRESSION: Extensive osteopenia and soft tissue swelling throughout the left ankle and foot. at 1634 Reported and signed by: John Becerra M.D. CC: Suzette Alamo MD; Zhou Maguire MD PAGE 1 Signed Report Name: AMINTA RAJAN [facility] : 1940 Age/S: 79 / M [id number] Unit #: [id number] Loc: [place] [address] Phys: Zhou Maguire MD Acct: [id number] Dis Date: Status: DEP CLI PHONE #: [phone] Exam Date: 04/08/2020 1540 FAX #: Reason: unilateral primary osteoarthritis EXAMS: CPT: [id number] XR FOOT 3+[place] [address] Fluoro Time: DAP (Gy m2): Air Kerma (mGy): <Continued> Technologist: Matilda Angela, RT(R)(CT); Melissa Oenill RT(R) Trntnb Date/Time: 04/08/2020 (163) [email or web address] Orig Print D/T: S: 04/08/2020 (5885) PAGE 2 Signed Report - XR ANKLE 3+V LT 2020-04-08 Name: AMINTA RAJAN 16:34:00 [facility] [place] [facility] 1940 Age/S: 79 / M [address] Unit #: [id number] Loc: [place] [address] Phys: Zhou Maguire MD Acct: [id number] Dis Date: Status: REG CLI PHONE #: [phone] Exam Date: 04/08/2020 1540 FAX #: Reason: unilateral primary osteoarthritis EXAMS: CPT: [id number] XR ANKLE 3+[place] [address] Fluoro Time: DAP (Gy m2): Air Kerma (mGy): LOCATION: T18 EXAM: - XR FOOT 3+V LT EXAM: - XR ANKLE 3+V LT INDICATION: unilateral primary osteoarthritis, COMPARISON: None. TECHNIQUE: AP and lateral radiographs of the left ankle and foot FINDINGS: Osteopenia noted throughout. No acute fracture. Extensive soft tissue swelling throughout the ankle and foot. Vascular calcifications noted throughout as well. No subcutaneous air identified. IMPRESSION: Extensive osteopenia and soft tissue swelling throughout the left ankle and foot. at 1634 Reported and signed by: John Becerra M.D. CC: Suzette Alamo MD; Zhou Maguire MD PAGE 1 Signed Report Name: AMINTA RAJAN [facility] : 1940 Age/S: 79 / M [address] Unit #: [id number] Loc: [place] [address] Phys: Zhou Maguire MD Acct: [id number] Dis Date: Status: REG CLI PHONE #: [phone] Exam Date: 04/08/2020 1540 FAX #: Reason: unilateral primary osteoarthritis EXAMS: CPT: [id number] XR ANKLE 3+[place] [address] Fluoro Time: DAP (Gy m2): Air Kerma (mGy): <Continued> Technologist: Matilda Angela, RT(R)(CT); Melissa Oneill RT(R) Trntnb Date/Time: 04/08/2020 (163) t.MARIA [email or web address] Orig Print D/T: S: 04/08/2020 (2187) PAGE 2 Signed Report - XR ANKLE 3+V LT 2020-04-08 Name: AMINTA RAJAN 16:34:00 EN [facility] : 1940 Age/S: 79 / M [address] Unit #: [id number] Loc: [place] [address] Phys: Zhou Maguire MD Acct: [id number] Dis Date: Status: DEP CLI PHONE #: [phone] Exam Date: 04/08/2020 1540 FAX #: Reason: unilateral primary osteoarthritis EXAMS: CPT: [id number] XR ANKLE 3+[place] [address] Fluoro Time: DAP (Gy m2): Air Kerma (mGy): LOCATION: T18 EXAM: - XR FOOT 3+V LT EXAM: - XR ANKLE 3+V LT INDICATION: unilateral primary osteoarthritis, COMPARISON: None. TECHNIQUE: AP and lateral radiographs of the left ankle and foot FINDINGS: Osteopenia noted throughout. No acute fracture. Extensive soft tissue swelling throughout the ankle and foot. Vascular calcifications noted throughout as well. No subcutaneous air identified. IMPRESSION: Extensive osteopenia and soft tissue swelling throughout the left ankle and foot. at 1634 Reported and signed by: John Becerra M.D. CC: Suzette Alamo MD; Zhou Maguire MD PAGE 1 Signed Report Name: AMINTA RAJAN [facility] : 1940 Age/S: 79 / M [address] Unit #: [id number] Loc: [place] [address] Phys: Zhou Maguire MD Acct: [id number] Dis Date: Status: DEP CLI PHONE #: [phone] Exam Date: 04/08/2020 1540 FAX #: Reason: unilateral primary osteoarthritis EXAMS: CPT: [id number] XR ANKLE 3+V [place] [address] Fluoro Time: DAP (Gy m2): Air Kerma (mGy): <Continued> Technologist: Matilda Angela, RT(R)(CT); Melissa Oneill RT(R) Trntnb Date/Time: 04/08/2020 (163) [email or web address] Orig Print D/T: S: 04/08/2020 (1644) PAGE 2 Signed Report POCT-GLUCOSE METER 2019-01-30 17:08:00 Test Item Value Reference Range Interpretation Comme nts POC-GLUCOSE METER ([facility]) (test 171 mg/dL 70-110 H TESTED AT [facility] [address] [facility] code = 1538) [facility] 7703 0 POCT-GLUCOSE [id number] 12:25:00 Test Item Value Reference Range Interpretation Comments POC-GLUCOSE METER 242 mg/dL 70-110 H TESTED AT [facility] 67[address] ([facility]) (test code = BERTNE R [facility] 1538) [address] POCT-GLUCOSE [id number] 09:09:00 Test Item Value Reference Range Interpretation Comments POC-GLUCOSE METER 181 mg/dL 70-110 H TESTED AT [facility] 67[address] (BEAKER) (test code = [place] 1538) [address] [id number] 05:31:00 Test Item Value Reference Range Interpretation Comments MAGNESIUM (BEAKER) (test code = 1.7 mg/dL 1.6-2.6 627) BASIC METABOLIC [id number] 05:31:00 Test Item Value Reference Range Interpretation Comments SODIUM (BEAKER) 137 meq/L 136-145 (test code = 381) POTASSIUM (BEAKER) 4.2 meq/L 3.5-5.1 (test code = 379) CHLORIDE (BEAKER) 100 meq/L 98-107 (test code = 382) CO2 (BEAKER) (test 27 meq/L 22-29 code = 355) BLOOD UREA NITROGEN 49 mg/dL 7-21 H (BEAKER) (test code = 354) CREATININE (BEAKER) 1.73 mg/dL 0.57-1.25 H (test code = 358) GLUCOSE RANDOM 192 mg/dL 70-105 H (BEAKER) (test code = 652) CALCIUM (BEAKER) 9.7 mg/dL 8.4-10.2 (test code = 697) EGFR (BEAKER) (test 39 mL/min/1.73 ESTIMA DAVID GFR IS code = 1092) sq m NOT ACCURATE CREATININE CLEARANCE IN PREDICTING GLOMERULAR FILTRATION RATE . ESTIMATED GFR I S NOT APPLICABLE FOR DIALYSIS PATIEN TS. PROTHROMBIN [id number] 05:25:00 Test Item Value Reference Range Interpretation Comments PROTIME (BEAKER) (test code = 32.7 seconds 11.7-14.7 H 759) INR (BEAKER) (test code = 370) 3.2 <=5.9 RECOMMENDED COUMADIN/WARFARIN INR THERAPY RANGESSTANDARD DOSE: 2.0 - 3.0 Includes: PROPHYLAXIS forvenous thrombosis, systemic embolization; TREATMENT for venous thrombosis and/or pulmonary embolus.HIGH RISK: Target INR is 2.5-3.5 for patients with mechanical heart valves.While on warfarin.CBC W/PLT COUNT & AUTO [id number] 05:13:00 Test Item Value Reference Range Interpretation Comments WHITE BLOOD CELL COUNT (BEAKER) 6.8 K/ L 3.5-10.5 (test code = 775) RED BLOOD CELL COUNT (BEAKER) 3.42 M/ L 4.63-6.08 L (test code = 761) HEMOGLOBIN (BEAKER) (test code = 10.7 GM/DL 13.7-17.5 L 410) HEMATOCRIT (BEAKER) (test code = 34.5 % 40.1-51.0 L 411) MEAN CORPUSCULAR VOLUME (BEAKER) 100.9 fL 79.0-92.2 H (test code = 753) MEAN CORPUSCULAR HEMOGLOBIN 31.3 pg 25.7-32.2 (BEAKER) (test code = 751) MEAN CORPUSCULAR HEMOGLOBIN CONC 31.0 GM/DL 32.3-36.5 L (BEAKER) (test code = 752) RED CELL DISTRIBUTION WIDTH 14.0 % 11.6-14.4 (BEAKER) (test code = 412) PLATELET COUNT (BEAKER) (test 196 K/CU MM 150-450 code = 756) MEAN PLATELET VOLUME (BEAKER) 10.5 fL 9.4-12.4 (test code = 754) NUCLEATED RED BLOOD CELLS 0 /100 WBC 0-0 (BEAKER) (test code = 413) NEUTROPHILS RELATIVE PERCENT 56 % (BEAKER) (test code = 429) LYMPHOCYTES RELATIVE PERCENT 24 % (BEAKER) (test code = 430) MONOCYTES RELATIVE PERCENT 14 % (BEAKER) (test code = 431) EOSINOPHILS RELATIVE PERCENT 4 % (BEAKER) (test code = 432) BASOPHILS RELATIVE PERCENT 1 % (BEAKER) (test code = 437) NEUTROPHILS ABSOLUTE COUNT 3.81 K/ L 1.78-5.38 (BEAKER) (test code = 670) LYMPHOCYTES ABSOLUTE COUNT 1.64 K/ L 1.32-3.57 (BEAKER) (test code = 414) MONOCYTES ABSOLUTE COUNT (BEAKER) 0.98 K/ L 0.30-0.82 H (test code = 415) EOSINOPHILS ABSOLUTE COUNT 0.29 K/ L 0.04-0.54 (BEAKER) (test code = 416) BASOPHILS ABSOLUTE COUNT (BEAKER) 0.05 K/ L 0.01-0.08 (test code = 417) IMMATURE GRANULOCYTES-RELATIVE 1 % 0-1 PERCENT (BEAKER) (test code = 2801) POCT-GLUCOSE [id number] 22:51:00 Test Item Value Reference Range Interpretation Comments POC-GLUCOSE METER 227 mg/dL 70-110 H TESTED AT [facility] [address] (BEAKER) (test code = [place] 1538) [address] POCT-GLUCOSE [id number] 17:24:00 Test Item Value Reference Range Interpretation Comments POC-GLUCOSE METER 236 mg/dL 70-110 H TESTED AT [facility] 67[address] (BEAKER) (test code = [place] 1538) [address] URINALYSIS W/ [id number] 14:49:00 Test Item Value Reference Range Interpretation Comments COLOR (BEAKER) (test code = 470) Light Yellow CLARITY (BEAKER) (test code = Hazy 469) SPECIFIC GRAVITY UA (BEAKER) 1.010 1.001-1.035 (test code = 468) PH UA (BEAKER) (test code = 467) 8.0 5.0-8.0 PROTEIN UA (BEAKER) (test code = 10 mg/dL Negative A 464) GLUCOSE UA (BEAKER) (test code = Negative Negative 365) KETONES UA (BEAKER) (test code = Negative Negative 371) BILIRUBIN UA (BEAKER) (test code Negative Negative = 462) BLOOD UA (BEAKER) (test code = Small Negative A 461) NITRITE UA (BEAKER) (test code = Negative Negative 465) LEUKOCYTE ESTERASE UA (BEAKER) Large Negative A (test code = 466) UROBILINOGEN UA (BEAKER) (test 0.2 mg/dL 0.2-1.0 code = 463) RBC UA (BEAKER) (test code = 0 /HPF 519) WBC UA (BEAKER) (test code = 64 /HPF 520) BACTERIA (BEAKER) (test code = Moderate 517) TRIPLE PHOSPHATE CRYSTALS Few (BEAKER) (test code = 1582) YEAST (BEAKER) (test code = Few 1585) SOURCE(BEAKER) (test code = Urine, Hannah 7784) POCT-GLUCOSE [id number] 13:02:00 Test Item Value Reference Range Interpretation Comments POC-GLUCOSE METER 180 mg/dL 70-110 H TESTED AT [facility] 6720 (BEAKER) (test code = NIKO Har[place] 1538) [id number] POCT-GLUCOSE [id number] 09:36:00 Test Item Value Reference Range Interpretation Comments POC-GLUCOSE METER 200 mg/dL 70-110 H TESTED AT [facility] 6720 (BEAKER) (test code = NIKO [place] 1538) [id number] PROTHROMBIN [id number] 07:20:00 Test Item Value Reference Range Interpretation Comments PROTIME (BEAKER) (test code = 29.2 seconds 11.7-14.7 H 759) INR (BEAKER) (test code = 370) 2.8 <=5.9 RECOMMENDED COUMADIN/WARFARIN INR THERAPY RANGESSTANDARD DOSE: 2.0 - 3.0 Includes: PROPHYLAXIS forvenous thrombosis, systemic embolization; TREATMENT for venous thrombosis and/or pulmonary embolus.HIGH RISK: Target INR is 2.5-3.5 for patients with mechanical heart valves.While on warfarin.[id number] 07:16:00 Test Item Value Reference Range Interpretation Comments MAGNESIUM (BEAKER) (test code = 1.8 mg/dL 1.6-2.6 627) BASIC METABOLIC [id number] 07:16:00 Test Item Value Reference Range Interpretation Comments SODIUM (BEAKER) 138 meq/L 136-145 (test code = 381) POTASSIUM (BEAKER) 4.0 meq/L 3.5-5.1 (test code = 379) CHLORIDE (BEAKER) 100 meq/L 98-107 (test code = 382) CO2 (BEAKER) (test 28 meq/L 22-29 code = 355) BLOOD UREA NITROGEN 46 mg/dL 7-21 H (BEAKER) (test code = 354) CREATININE (BEAKER) 1.88 mg/dL 0.57-1.25 H (test code = 358) GLUCOSE RANDOM 177 mg/dL 70-105 H (BEAKER) (test code = 652) CALCIUM (BEAKER) 9.5 mg/dL 8.4-10.2 (test code = 697) EGFR (BEAKER) (test 35 mL/min/1.73 ESTIMA DAVID GFR IS code = 1092) sq m NOT ACCURATE CREATININE CLEARANCE IN PREDICTING GLOMERULAR FILTRATION RATE . ESTIMATED GFR I S NOT APPLICABLE FOR DIALYSIS PATIEN TS. CBC W/PLT COUNT & AUTO [id number] 07:07:00 Test Item Value Reference Range Interpretation Comments WHITE BLOOD CELL COUNT (BEAKER) 6.8 K/ L 3.5-10.5 (test code = 775) RED BLOOD CELL COUNT (BEAKER) 3.48 M/ L 4.63-6.08 L (test code = 761) HEMOGLOBIN (BEAKER) (test code = 11.1 GM/DL 13.7-17.5 L 410) HEMATOCRIT (BEAKER) (test code = 35.0 % 40.1-51.0 L 411) MEAN CORPUSCULAR VOLUME (BEAKER) 100.6 fL 79.0-92.2 H (test code = 753) MEAN CORPUSCULAR HEMOGLOBIN 31.9 pg 25.7-32.2 (BEAKER) (test code = 751) MEAN CORPUSCULAR HEMOGLOBIN CONC 31.7 GM/DL 32.3-36.5 L (BEAKER) (test code = 752) RED CELL DISTRIBUTION WIDTH 14.3 % 11.6-14.4 (BEAKER) (test code = 412) PLATELET COUNT (BEAKER) (test 205 K/CU MM 150-450 code = 756) MEAN PLATELET VOLUME (BEAKER) 10.3 fL 9.4-12.4 (test code = 754) NUCLEATED RED BLOOD CELLS 0 /100 WBC 0-0 (BEAKER) (test code = 413) NEUTROPHILS RELATIVE PERCENT 57 % (BEAKER) (test code = 429) LYMPHOCYTES RELATIVE PERCENT 24 % (BEAKER) (test code = 430) MONOCYTES RELATIVE PERCENT 15 % (BEAKER) (test code = 431) EOSINOPHILS RELATIVE PERCENT 3 % (BEAKER) (test code = 432) BASOPHILS RELATIVE PERCENT 1 % (BEAKER) (test code = 437) NEUTROPHILS ABSOLUTE COUNT 3.86 K/ L 1.78-5.38 (BEAKER) (test code = 670) LYMPHOCYTES ABSOLUTE COUNT 1.61 K/ L 1.32-3.57 (BEAKER) (test code = 414) MONOCYTES ABSOLUTE COUNT (BEAKER) 1.00 K/ L 0.30-0.82 H (test code = 415) EOSINOPHILS ABSOLUTE COUNT 0.23 K/ L 0.04-0.54 (BEAKER) (test code = 416) BASOPHILS ABSOLUTE COUNT (BEAKER) 0.05 K/ L 0.01-0.08 (test code = 417) IMMATURE GRANULOCYTES-RELATIVE 0 % 0-1 PERCENT (BEAKER) (test code = 2801) POCT-GLUCOSE [id number] 22:06:00 Test Item Value Reference Range Interpretation Comments POC-GLUCOSE METER 222 mg/dL 70-110 H TESTED AT [place] [address] (BEAKER) (test code = [place] 1538) [id number] POCT-GLUCOSE [id number] 18:33:00 Test Item Value Reference Range Interpretation Comments POC-GLUCOSE METER 227 mg/dL 70-110 H TESTED AT [place] [address] (BEAKER) (test code = NIKO Harp [place] 1538) [address] URINALYSIS W/ REFLEX URINE [id number] 14:23:00 Test Item Value Reference Range Interpretation Comments COLOR (BEAKER) (test code = 470) Yellow CLARITY (BEAKER) (test code = 469) Cloudy SPECIFIC GRAVITY UA (BEAKER) (test 1.012 1.001-1.035 code = 468) PH UA (BEAKER) (test code = 467) 8.5 5.0-8.0 H PROTEIN UA (BEAKER) (test code = 100 mg/dL Negative A 464) GLUCOSE UA (BEAKER) (test code = Negative Negative 365) KETONES UA (BEAKER) (test code = Negative Negative 371) BILIRUBIN UA (BEAKER) (test code = Negative Negative 462) BLOOD UA (BEAKER) (test code = 461) Trace Negative A NITRITE UA (BEAKER) (test code = Negative Negative 465) LEUKOCYTE ESTERASE UA (BEAKER) Large Negative A (test code = 466) UROBILINOGEN UA (BEAKER) (test code 0.2 mg/dL 0.2-1.0 = 463) RBC UA (BEAKER) (test code = 519) 28 /HPF WBC UA (BEAKER) (test code = 520) 112 /HPF BACTERIA (BEAKER) (test code = 517) Many MUCUS (BEAKER) (test code = 1574) Few TRIPLE PHOSPHATE CRYSTALS (BEAKER) Few (test code = 1582) YEAST (BEAKER) (test code = 1585) Many SOURCE(BEAKER) (test code = 2159) POCT-GLUCOSE [id number] 12:34:00 Test Item Value Reference Range Interpretation Comments POC-GLUCOSE METER 273 mg/dL 70-110 H TESTED AT [facility] 6720 (BEAKER) (test code = NIKO Harp [facility] 1538) [address] POCT-GLUCOSE [id number] 09:09:00 Test Item Value Reference Range Interpretation Comments POC-GLUCOSE METER 186 mg/dL 70-110 H TESTED AT [facility] 6720 (BEAKER) (test code = NIKO Harp [facility] 1538) [address] [id number] 07:43:00 Test Item Value Reference Range Interpretation Comments MAGNESIUM (BEAKER) (test code = 1.6 mg/dL 1.6-2.6 627) BASIC METABOLIC [id number] 07:43:00 Test Item Value Reference Range Interpretation Comments SODIUM (BEAKER) 138 meq/L 136-145 (test code = 381) POTASSIUM (BEAKER) 3.7 meq/L 3.5-5.1 (test code = 379) CHLORIDE (BEAKER) 98 meq/L 98-107 (test code = 382) CO2 (BEAKER) (test 30 meq/L 22-29 H code = 355) BLOOD UREA NITROGEN 45 mg/dL 7-21 H (BEAKER) (test code = 354) CREATININE (BEAKER) 1.89 mg/dL 0.57-1.25 H (test code = 358) GLUCOSE RANDOM 167 mg/dL 70-105 H (BEAKER) (test code = 652) CALCIUM (BEAKER) 9.4 mg/dL 8.4-10.2 (test code = 697) EGFR (BEAKER) (test 35 mL/min/1.73 ESTIMA DAVID GFR IS code = 1092) sq m NOT ACCURATE CREATININE CLEARANCE IN PREDICTING GLOMERULAR FILTRATION RATE . ESTIMATED GFR I S NOT APPLICABLE FOR DIALYSIS PATIEN TS. [id number] 07:30:00 Test Item Value Reference Range Interpretation Comments PARTIAL THROMBOPLASTIN TIME 95.4 seconds 22.5-36.0 H (BEAKER) (test code = 760) While on warfarin.PROTHROMBIN [id number] 07:28:00 Test Item Value Reference Range Interpretation Comments PROTIME (BEAKER) (test code = 25.1 seconds 11.7-14.7 H 759) INR (BEAKER) (test code = 370) 2.3 <=5.9 RECOMMENDED COUMADIN/WARFARIN INR THERAPY RANGESSTANDARD DOSE: 2.0 - 3.0 Includes: PROPHYLAXIS forvenous thrombosis, systemic embolization; TREATMENT for venous thrombosis and/or pulmonary embolus.HIGH RISK: Target INR is 2.5-3.5 for patients with mechanical heart valves.While on warfarin.[id number] 23:08:00 Test Item Value Reference Range Interpretation Comments PARTIAL THROMBOPLASTIN TIME 66.2 seconds 22.5-36.0 H ([facility]) (test code = 760) POCT-GLUCOSE [id number] 22:14:00 Test Item Value Reference Range Interpretation Comments POC-GLUCOSE METER 224 mg/dL 70-110 H TESTED AT [place] [address] ([facility]) (test code = [facility] 1538) [id number] 19:24:00 Test Item Value Reference Range Interpretation Comments PARTIAL THROMBOPLASTIN TIME 121.7 seconds 22.5-36.0 H ([facility]) (test code = 760) POCT-GLUCOSE [id number] 17:07:00 Test Item Value Reference Range Interpretation Comments POC-GLUCOSE METER 191 mg/dL 70-110 H TESTED AT [place] [address] ([facility]) (test code = [facility] [place] [facility] 1538) [id number] 12:57:00 Test Item Value Reference Range Interpretation Comments PARTIAL THROMBOPLASTIN TIME 95.5 seconds 22.5-36.0 H ([facility]) (test code = 760) POCT-GLUCOSE [id number] 12:11:00 Test Item Value Reference Range Interpretation Comments POC-GLUCOSE METER 217 mg/dL 70-110 H TESTED AT [place] [address] ([facility]) (test code = [facility] [place] [facility] 1538) [id number] POCT-GLUCOSE [id number] 08:51:00 Test Item Value Reference Range Interpretation Comments POC-GLUCOSE METER 185 mg/dL 70-110 H TESTED AT [place] [address] ([facility]) (test code = [facility] [place] [facility] 1538) [address] [id number] 05:36:00 Test Item Value Reference Range Interpretation Comments PARTIAL THROMBOPLASTIN TIME 117.7 seconds 22.5-36.0 H ([facility]) (test code = 760) While on warfarin.[id number] 05:06:00 Test Item Value Reference Range Interpretation Comments MAGNESIUM ([facility]) (test code = 1.6 mg/dL 1.6-2.6 627) BASIC METABOLIC [id number] 05:06:00 Test Item Value Reference Range Interpretation Comments SODIUM (BEAKER) 140 meq/L 136-145 (test code = 381) POTASSIUM (BEAKER) 3.6 meq/L 3.5-5.1 (test code = 379) CHLORIDE (BEAKER) 99 meq/L 98-107 (test code = 382) CO2 (BEAKER) (test 30 meq/L 22-29 H code = 355) BLOOD UREA NITROGEN 48 mg/dL 7-21 H (BEAKER) (test code = 354) CREATININE (BEAKER) 2.09 mg/dL 0.57-1.25 H (test code = 358) GLUCOSE RANDOM 179 mg/dL 70-105 H (BEAKER) (test code = 652) CALCIUM (BEAKER) 9.5 mg/dL 8.4-10.2 (test code = 697) EGFR (BEAKER) (test 31 mL/min/1.73 ESTIMA DAVID GFR IS code = 1092) sq m NOT ACCURATE CREATININE CLEARANCE IN PREDICTING GLOMERULAR FILTRATION RATE . ESTIMATED GFR I S NOT APPLICABLE FOR DIALYSIS PATIEN TS. PROTHROMBIN [id number] 05:01:00 Test Item Value Reference Range Interpretation Comments PROTIME (BEAKER) (test code = 21.5 seconds 11.7-14.7 H 759) INR (BEAKER) (test code = 370) 1.8 <=5.9 RECOMMENDED COUMADIN/WARFARIN INR THERAPY RANGESSTANDARD DOSE: 2.0 - 3.0 Includes: PROPHYLAXIS forvenous thrombosis, systemic embolization; TREATMENT for venous thrombosis and/or pulmonary embolus.HIGH RISK: Target INR is 2.5-3.5 for patients with mechanical heart valves.While on warfarin.POCT-GLUCOSE METER 2019-01-26 21:46:00 Test Item Value Reference Range Interpretation Comments POC-GLUCOSE METER 200 mg/dL 70-110 H TESTED AT [facility] 6720 ([employer]) (test code = [place] 1538) [address] POCT-GLUCOSE [id number] 17:51:00 Test Item Value Reference Range Interpretation Comments POC-GLUCOSE METER 224 mg/dL 70-110 H TESTED AT [facility] 6720 (BEAKER) (test code = [facility] 1538) [address] [id number] 13:34:00 Test Item Value Reference Range Interpretation Comments PARTIAL THROMBOPLASTIN TIME 85.8 seconds 22.5-36.0 H (BEAKER) (test code = 760) POCT-GLUCOSE [id number] 13:26:00 Test Item Value Reference Range Interpretation Comments POC-GLUCOSE METER 208 mg/dL 70-110 H TESTED AT [facility] 67[address] ([facility]) (test code = [facility] 1538) [id number] POCT-GLUCOSE [id number] 09:09:00 Test Item Value Reference Range Interpretation Comments POC-GLUCOSE METER 203 mg/dL 70-110 H TESTED AT [place] [address] ([facility]) (test code = [facility] 1538) [address] BASIC METABOLIC [id number] 07:09:00 Test Item Value Reference Range Interpretation Comments SODIUM (BEAKER) 139 meq/L 136-145 (test code = 381) POTASSIUM (BEAKER) 3.6 meq/L 3.5-5.1 (test code = 379) CHLORIDE (BEAKER) 97 meq/L 98-107 L (test code = 382) CO2 (BEAKER) (test 30 meq/L 22-29 H code = 355) BLOOD UREA NITROGEN 56 mg/dL 7-21 H (BEAKER) (test code = 354) CREATININE (BEAKER) 2.30 mg/dL 0.57-1.25 H (test code = 358) GLUCOSE RANDOM 227 mg/dL 70-105 H (BEAKER) (test code = 652) CALCIUM (BEAKER) 9.3 mg/dL 8.4-10.2 (test code = 697) EGFR (BEAKER) (test 28 mL/min/1.73 ESTIMA DAVID GFR IS code = 1092) sq m NOT ACCURATE CREATININE CLEARANCE IN PREDICTING GLOMERULAR FILTRATION RATE . ESTIMATED GFR I S NOT APPLICABLE FOR DIALYSIS PATIEN TS. [id number] 07:08:00 Test Item Value Reference Range Interpretation Comments MAGNESIUM (BEAKER) (test code = 1.6 mg/dL 1.6-2.6 627) [id number] 06:31:00 Test Item Value Reference Range Interpretation Comments PARTIAL THROMBOPLASTIN TIME 89.3 seconds 22.5-36.0 H ([facility]) (test code = 760) While on warfarin.PROTHROMBIN [id number] 06:29:00 Test Item Value Reference Range Interpretation Comments PROTIME ([facility]) (test code = 19.8 seconds 11.7-14.7 H 759) INR ([facility]) (test code = 370) 1.7 <=5.9 RECOMMENDED COUMADIN/WARFARIN INR THERAPY RANGESSTANDARD DOSE: 2.0 - 3.0 Includes: PROPHYLAXIS forvenous thrombosis, systemic embolization; TREATMENT for venous thrombosis and/or pulmonary embolus.HIGH RISK: Target INR is 2.5-3.5 for patients with mechanical heart valves.While on warfarin.[id number] 22:50:00 Test Item Value Reference Range Interpretation Comments PARTIAL THROMBOPLASTIN TIME 110.0 seconds 22.5-36.0 H ([facility]) (test code = 760) POCT-GLUCOSE [id number] 22:48:00 Test Item Value Reference Range Interpretation Comments POC-GLUCOSE METER 188 mg/dL 70-110 H TESTED AT [place] [address] ([facility]) (test code = NIKO Harp [facility] 1538) [address] POCT-GLUCOSE [id number] 17:03:00 Test Item Value Reference Range Interpretation Comments POC-GLUCOSE METER 185 mg/dL 70-110 H TESTED AT [place] [address] ([facility]) (test code = MELLELIER Harp [facility] 1538) [address] [id number] 15:20:00 Test Item Value Reference Range Interpretation Comments PARTIAL THROMBOPLASTIN TIME 64.0 seconds 22.5-36.0 H ([facility]) (test code = 760) POCT-GLUCOSE [id number] 12:48:00 Test Item Value Reference Range Interpretation Comments POC-GLUCOSE METER 269 mg/dL 70-110 H TESTED AT [place] [address] ([facility]) (test code = NIKO Harp [facility] 1538) [address] POCT-GLUCOSE [id number] 09:25:00 Test Item Value Reference Range Interpretation Comments POC-GLUCOSE METER 209 mg/dL 70-110 H TESTED AT [place] [address] ([facility]) (test code = NIKO Harp [facility] 1538) [address] [id number] 06:39:00 Test Item Value Reference Range Interpretation Comments PARTIAL THROMBOPLASTIN TIME 102.4 seconds 22.5-36.0 H (BEAKER) (test code = 760) While on warfarin.VITAMIN D, [id number] 05:39:00 Test Item Value Reference Range Interpretation Comments VITAMIN D 25-OH (BEAKER) (test 37.0 ng/mL 6.6-49.9 code = 2764) Effective 09/01/2017: Reference Range ChangeNew: 6.6-49.9 ng/mL Previous: 13.0-47.8 ng/mLRecommended Vitamin D Target Range: 30.0-40.0 ng/mLBASIC METABOLIC [id number] 05:16:00 Test Item Value Reference Range Interpretation Comments SODIUM (BEAKER) 138 meq/L 136-145 (test code = 381) POTASSIUM (BEAKER) 3.8 meq/L 3.5-5.1 (test code = 379) CHLORIDE (BEAKER) 97 meq/L 98-107 L (test code = 382) CO2 (BEAKER) (test 31 meq/L 22-29 H code = 355) BLOOD UREA NITROGEN 62 mg/dL 7-21 H (BEAKER) (test code = 354) CREATININE (BEAKER) 2.20 mg/dL 0.57-1.25 H (test code = 358) GLUCOSE RANDOM 162 mg/dL 70-105 H (BEAKER) (test code = 652) CALCIUM (BEAKER) 9.2 mg/dL 8.4-10.2 (test code = 697) EGFR (BEAKER) (test 29 mL/min/1.73 ESTIMA DAVID GFR IS code = 1092) sq m NOT ACCURATE CREATININE CLEARANCE IN PREDICTING GLOMERULAR FILTRATION RATE . ESTIMATED GFR I S NOT APPLICABLE FOR DIALYSIS PATIEN TS. [id number] 05:11:00 Test Item Value Reference Range Interpretation Comments PHOSPHORUS (BEAKER) (test code = 4.4 mg/dL 2.3-4.7 604) [id number] 05:11:00 Test Item Value Reference Range Interpretation Comments MAGNESIUM (BEAKER) (test code = 1.5 mg/dL 1.6-2.6 L 627) PROTHROMBIN [id number] 05:05:00 Test Item Value Reference Range Interpretation Comments PROTIME (BEAKER) (test code = 18.6 seconds 11.7-14.7 H 759) INR ([facility]ANT[facility]) (test code = 370) 1.6 <=5.9 RECOMMENDED COUMADIN/WARFARIN INR THERAPY RANGESSTANDARD DOSE: 2.0 - 3.0 Includes: PROPHYLAXIS forvenous thrombosis, systemic embolization; TREATMENT for venous thrombosis and/or pulmonary embolus.HIGH RISK: Target INR is 2.5-3.5 for patients with mechanical heart valves.While on warfarin.POCT-GLUCOSE METER 2019-01-24 22:28:00 Test Item Value Reference Range Interpretation Comments POC-GLUCOSE METER 196 mg/dL 70-110 H TESTED AT [facility] 6720 (SHANTI) (test code = NIKO Harp [facility] 1538) [id number] POCT-GLUCOSE [id number] 16:37:00 Test Item Value Reference Range Interpretation Comments POC-GLUCOSE METER 211 mg/dL 70-110 H TESTED AT [facility] 6720 [facility] (test code = NIKO Harp [facility] 1538) [address] RAD, FOOT, 2 VIEWS, [id number] 13:10:00Reason for exam:->painFINAL REPORT TECHNIQUE: Frontal, lateral, [...] swelling of the foot. Signed: Fahad Armenta Verified Date/Time: 01/24/2019 13:10:38 Reading Location: [facility] Radiology Reading Room -GLUCOSE [id number] 12:43:00 Test Item Value Reference Range Interpretation Comments POC-GLUCOSE METER 217 mg/dL 70-110 H TESTED AT [facility] 6720 (BEAKER) (test code = [place] 1538) [id number] POCT-GLUCOSE [id number] 08:21:00 Test Item Value Reference Range Interpretation Comments POC-GLUCOSE METER 186 mg/dL 70-110 H TESTED AT [facility] 6720 (BEAKER) (test code = [place] 1538) [address] [id number] 05:21:00 Test Item Value Reference Range Interpretation Comments PHOSPHORUS (BEAKER) (test code = 4.5 mg/dL 2.3-4.7 604) [id number] 05:21:00 Test Item Value Reference Range Interpretation Comments MAGNESIUM (BEAKER) (test code = 1.7 mg/dL 1.6-2.6 627) BASIC METABOLIC [id number] 05:21:00 Test Item Value Reference Range Interpretation Comments SODIUM (BEAKER) 136 meq/L 136-145 (test code = 381) POTASSIUM (BEAKER) 3.9 meq/L 3.5-5.1 (test code = 379) CHLORIDE (BEAKER) 95 meq/L 98-107 L (test code = 382) CO2 (BEAKER) (test 30 meq/L 22-29 H code = 355) BLOOD UREA NITROGEN 68 mg/dL 7-21 H (BEAKER) (test code = 354) CREATININE (BEAKER) 2.15 mg/dL 0.57-1.25 H (test code = 358) GLUCOSE RANDOM 170 mg/dL 70-105 H (BEAKER) (test code = 652) CALCIUM (BEAKER) 8.8 mg/dL 8.4-10.2 (test code = 697) EGFR (BEAKER) (test 30 mL/min/1.73 ESTIMA DAVID GFR IS code = 1092) sq m NOT ACCURATE CREATININE CLEARANCE IN PREDICTING GLOMERULAR FILTRATION RATE . ESTIMATED GFR I S NOT APPLICABLE FOR DIALYSIS PATIEN TS. [id number] 05:16:00 Test Item Value Reference Range Interpretation Comments PARTIAL THROMBOPLASTIN TIME 84.7 seconds 22.5-36.0 H (BEAKER) (test code = 760) While on warfarin.PROTHROMBIN [id number] 05:14:00 Test Item Value Reference Range Interpretation Comments PROTIME ([facility]) (test code = 15.7 seconds 11.7-14.7 H 759) INR ([facility]) (test code = 370) 1.2 <=5.9 RECOMMENDED COUMADIN/WARFARIN INR THERAPY RANGESSTANDARD DOSE: 2.0 - 3.0 Includes: PROPHYLAXIS forvenous thrombosis, systemic embolization; TREATMENT for venous thrombosis and/or pulmonary embolus.HIGH RISK: Target INR is 2.5-3.5 for patients with mechanical heart valves.While on warfarin.POCT-GLUCOSE METER 2019-01-23 21:30:00 Test Item Value Reference Range Interpretation Comments POC-GLUCOSE METER 267 mg/dL 70-110 H TESTED AT [place] [address] ([facility]) (test code = [facility] 1538) [id number] POCT-GLUCOSE [id number] 16:28:00 Test Item Value Reference Range Interpretation Comments POC-GLUCOSE METER 184 mg/dL 70-110 H TESTED AT [place] [address] ([facility]) (test code = [facility] 1538) [id number] POCT-GLUCOSE [id number] 12:04:00 Test Item Value Reference Range Interpretation Comments POC-GLUCOSE METER 213 mg/dL 70-110 H TESTED AT [place] [address] ([facility]) (test code = [facility] 1538) [address] POCT-GLUCOSE [id number] 08:05:00 Test Item Value Reference Range Interpretation Comments POC-GLUCOSE METER 175 mg/dL 70-110 H TESTED AT [place] [address] ([facility]) (test code = [facility] 1538) [address] BLOOD [id number] 07:01:00 Test Item Value Reference Range Interpretation Comments CULTURE (BEAKER) (test No growth in 5 days code = 1095) BLOOD [id number] 07:01:00 Test Item Value Reference Range Interpretation Comments CULTURE (AKER) (test No growth in 5 days code = 1095) [id number] 05:40:00 Test Item Value Reference Range Interpretation Comments FERRITIN ([facility]) (test code = 361) 508 ng/mL 5-275 H Next blood drawCBC W/PLT COUNT & AUTO [id number] 05:25:00 Test Item Value Reference Range Interpretation Comments WHITE BLOOD CELL COUNT (BEAKER) 9.0 K/ L 3.5-10.5 (test code = 775) RED BLOOD CELL COUNT (BEAKER) 3.36 M/ L 4.63-6.08 L (test code = 761) HEMOGLOBIN (BEAKER) (test code = 10.7 GM/DL 13.7-17.5 L 410) HEMATOCRIT (BEAKER) (test code = 33.0 % 40.1-51.0 L 411) MEAN CORPUSCULAR VOLUME (BEAKER) 98.2 fL 79.0-92.2 H (test code = 753) MEAN CORPUSCULAR HEMOGLOBIN 31.8 pg 25.7-32.2 (BEAKER) (test code = 751) MEAN CORPUSCULAR HEMOGLOBIN CONC 32.4 GM/DL 32.3-36.5 (BEAKER) (test code = 752) RED CELL DISTRIBUTION WIDTH 14.1 % 11.6-14.4 (BEAKER) (test code = 412) PLATELET COUNT (BEAKER) (test 241 K/CU MM 150-450 code = 756) MEAN PLATELET VOLUME (BEAKER) 10.1 fL 9.4-12.4 (test code = 754) NUCLEATED RED BLOOD CELLS 0 /100 WBC 0-0 (BEAKER) (test code = 413) NEUTROPHILS RELATIVE PERCENT 63 % (BEAKER) (test code = 429) LYMPHOCYTES RELATIVE PERCENT 21 % (BEAKER) (test code = 430) MONOCYTES RELATIVE PERCENT 11 % (BEAKER) (test code = 431) EOSINOPHILS RELATIVE PERCENT 3 % (BEAKER) (test code = 432) BASOPHILS RELATIVE PERCENT 1 % (BEAKER) (test code = 437) NEUTROPHILS ABSOLUTE COUNT 5.71 K/ L 1.78-5.38 H (BEAKER) (test code = 670) LYMPHOCYTES ABSOLUTE COUNT 1.91 K/ L 1.32-3.57 (BEAKER) (test code = 414) MONOCYTES ABSOLUTE COUNT (BEAKER) 0.96 K/ L 0.30-0.82 H (test code = 415) EOSINOPHILS ABSOLUTE COUNT 0.29 K/ L 0.04-0.54 (BEAKER) (test code = 416) BASOPHILS ABSOLUTE COUNT (BEAKER) 0.05 K/ L 0.01-0.08 (test code = 417) IMMATURE GRANULOCYTES-RELATIVE 1 % 0-1 PERCENT (BEAKER) (test code = 2801) PROTHROMBIN [id number] 04:51:00 Test Item Value Reference Range Interpretation Comments PROTIME (BEAKER) (test code = 14.8 seconds 11.7-14.7 H 759) INR (BEAKER) (test code = 370) 1.2 <=5.9 RECOMMENDED COUMADIN/WARFARIN INR THERAPY RANGESSTANDARD DOSE: 2.0 - 3.0 Includes: PROPHYLAXIS forvenous thrombosis, systemic embolization; TREATMENT for venous thrombosis and/or pulmonary embolus.HIGH RISK: Target INR is 2.5-3.5 for patients with mechanical heart valves.While on warfarin.BASIC METABOLIC PANEL 2019-01-23 04:49:00 Test Item Value Reference Range Interpretation Comments SODIUM (BEAKER) 138 meq/L 136-145 (test code = 381) POTASSIUM (BEAKER) 4.2 meq/L 3.5-5.1 (test code = 379) CHLORIDE (BEAKER) 97 meq/L 98-107 L (test code = 382) CO2 (BEAKER) (test 30 meq/L 22-29 H code = 355) BLOOD UREA NITROGEN 73 mg/dL 7-21 H (BEAKER) (test code = 354) CREATININE (BEAKER) 2.32 mg/dL 0.57-1.25 H (test code = 358) GLUCOSE RANDOM 149 mg/dL 70-105 H (BEAKER) (test code = 652) CALCIUM (BEAKER) 8.5 mg/dL 8.4-10.2 (test code = 697) EGFR (BEAKER) (test 28 mL/min/1.73 ESTIMA DAVID GFR IS code = 1092) sq m NOT ACCURATE CREATININE CLEARANCE IN PREDICTING GLOMERULAR FILTRATION RATE . ESTIMATED GFR I S NOT APPLICABLE FOR DIALYSIS PATIEN TS. [id number] 04:48:00 Test Item Value Reference Range Interpretation Comments PHOSPHORUS (BEAKER) (test code = 5.7 mg/dL 2.3-4.7 H 604) [id number] 04:48:00 Test Item Value Reference Range Interpretation Comments MAGNESIUM (BEAKER) (test code = 1.3 mg/dL 1.6-2.6 L 627) [id number] 02:38:00 Test Item Value Reference Range Interpretation Comments PARTIAL THROMBOPLASTIN TIME 72.2 seconds 22.5-36.0 H ([facility]) (test code = 760) POCT-GLUCOSE [id number] 23:00:00 Test Item Value Reference Range Interpretation Comments POC-GLUCOSE METER 227 mg/dL 70-110 H TESTED AT [place] [address] ([facility]) (test code = NIKO Harp [place] [address]) [id number] 21:03:00 Test Item Value Reference Range Interpretation Comments PARTIAL THROMBOPLASTIN TIME 88.9 seconds 22.5-36.0 H ([facility]) (test code = 760) POCT-GLUCOSE [id number] 19:37:00 Test Item Value Reference Range Interpretation Comments POC-GLUCOSE METER 187 mg/dL 70-110 H TESTED AT [place] [address] ([facility]) (test code = NIKO Harp [facility] 1538) [id number] 16:35:00 Test Item Value Reference Range Interpretation Comments FERRITIN ([facility]) (test code = 361) 404 ng/mL 22-322 H Next blood drawPOCT-GLUCOSE [id number] 11:54:00 Test Item Value Reference Range Interpretation Comments POC-GLUCOSE METER 217 mg/dL 70-110 H TESTED AT [place] [address] ([facility]) (test code = NIKO Harp [facility] 1538) [id number] 11:49:00 Test Item Value Reference Range Interpretation Comments PARTIAL THROMBOPLASTIN TIME 65.5 seconds 22.5-36.0 H ([facility]) (test code = 760) POCT-GLUCOSE [id number] 08:15:00 Test Item Value Reference Range Interpretation Comments POC-GLUCOSE METER 183 mg/dL 70-110 H TESTED AT [place] [address] ([facility]) (test code = [facility] Loyd [facility] 1538) [address] VITAMIN [id number] 05:29:00 Test Item Value Reference Range Interpretation Comments VITAMIN B12 (BEAKER) (test code = 1426 pg/mL 213-816 H 774) Next blood drawNext blood drawBASIC METABOLIC [id number] 04:55:00 Test Item Value Reference Range Interpretation Comments SODIUM (BEAKER) 139 meq/L 136-145 (test code = 381) POTASSIUM (BEAKER) 3.8 meq/L 3.5-5.1 (test code = 379) CHLORIDE (BEAKER) 99 meq/L 98-107 (test code = 382) CO2 (BEAKER) (test 29 meq/L 22-29 code = 355) BLOOD UREA NITROGEN 71 mg/dL 7-21 H (BEAKER) (test code = 354) CREATININE (BEAKER) 2.35 mg/dL 0.57-1.25 H (test code = 358) GLUCOSE RANDOM 152 mg/dL 70-105 H (BEAKER) (test code = 652) CALCIUM (BEAKER) 8.2 mg/dL 8.4-10.2 L (test code = 697) EGFR (BEAKER) (test 27 mL/min/1.73 ESTIMA DAVID GFR IS code = 1092) sq m NOT ACCURATE CREATININE CLEARANCE IN PREDICTING GLOMERULAR FILTRATION RATE . ESTIMATED GFR I S NOT APPLICABLE FOR DIALYSIS PATIEN TS. [id number] 04:48:00 Test Item Value Reference Range Interpretation Comments PHOSPHORUS (BEAKER) (test code = 4.9 mg/dL 2.3-4.7 H 604) [id number] 04:48:00 Test Item Value Reference Range Interpretation Comments MAGNESIUM (BEAKER) (test code = 1.4 mg/dL 1.6-2.6 L 627) [id number] 04:42:00 Test Item Value Reference Range Interpretation Comments PARTIAL THROMBOPLASTIN TIME 46.5 seconds 22.5-36.0 H (BEAKER) (test code = 760) While on warfarin.PROTHROMBIN [id number] 04:41:00 Test Item Value Reference Range Interpretation Comments PROTIME (BEAKER) (test code = 14.9 seconds 11.7-14.7 H 759) INR (BEAKER) (test code = 370) 1.2 <=5.9 RECOMMENDED COUMADIN/WARFARIN INR THERAPY RANGESSTANDARD DOSE: 2.0 - 3.0 Includes: PROPHYLAXIS forvenous thrombosis, systemic embolization; TREATMENT for venous thrombosis and/or pulmonary embolus.HIGH RISK: Target INR is 2.5-3.5 for patients with mechanical heart valves.While on warfarin.POCT-GLUCOSE METER 2019-01-21 21:36:00 Test Item Value Reference Range Interpretation Comments POC-GLUCOSE METER 209 mg/dL 70-110 H TESTED AT [place] [address] ([facility]) (test code = NIKO Harp [place] 1538) [address] POCT-GLUCOSE [id number] 18:55:00 Test Item Value Reference Range Interpretation Comments POC-GLUCOSE METER 177 mg/dL 70-110 H TESTED AT [place] [address] ([facility]) (test code = NIKO Harp [facility] 1538) [address] PROTHROMBIN [id number] 15:00:00 Test Item Value Reference Range Interpretation Comments PROTIME ([facility]) (test code = 15.7 seconds 11.7-14.7 H 759) INR ([facility]) (test code = 370) 1.2 <=5.9 RECOMMENDED COUMADIN/WARFARIN INR THERAPY RANGESSTANDARD DOSE: 2.0 - 3.0 Includes: PROPHYLAXIS forvenous thrombosis, systemic embolization; TREATMENT for venous thrombosis and/or pulmonary embolus.HIGH RISK: Target INR is 2.5-3.5 for patients with mechanical heart valves.[id number] 13:32:00 Test Item Value Reference Range Interpretation Comments PARTIAL THROMBOPLASTIN TIME 76.3 seconds 22.5-36.0 H ([facility]) (test code = 760) POCT-GLUCOSE [id number] 12:15:00 Test Item Value Reference Range Interpretation Comments POC-GLUCOSE METER 273 mg/dL 70-110 H TESTED AT [place] [address] ([facility]) (test code = [facility] Loyd [facility] 1538) [address] [id number] 11:33:00 Test Item Value Reference Range Interpretation Comments PARTIAL THROMBOPLASTIN TIME > seconds 22.5-36.0 HH ([facility]) (test code = 760) POCT-GLUCOSE [id number] 07:00:00 Test Item Value Reference Range Interpretation Comments POC-GLUCOSE METER 190 mg/dL 70-110 H TESTED AT [place] [address] ([facility]) (test code = [facility] 1538) [address] VITAMIN [id number] 04:08:00 Test Item Value Reference Range Interpretation Comments VITAMIN B12 ([facility]) (test code = 1616 pg/mL 213-816 H 774) Next blood drawNext blood [id number] 04:08:00 Test Item Value Reference Range Interpretation Comments FERRITIN (BEAKER) (test code = 361) 404 ng/mL 5-275 H Next blood drawNext blood drawBASIC METABOLIC [id number] 03:33:00 Test Item Value Reference Range Interpretation Comments SODIUM (BEAKER) 143 meq/L 136-145 (test code = 381) POTASSIUM (BEAKER) 4.0 meq/L 3.5-5.1 (test code = 379) CHLORIDE (BEAKER) 104 meq/L 98-107 (test code = 382) CO2 (BEAKER) (test 29 meq/L 22-29 code = 355) BLOOD UREA NITROGEN 81 mg/dL 7-21 H (BEAKER) (test code = 354) CREATININE (BEAKER) 2.62 mg/dL 0.57-1.25 H (test code = 358) GLUCOSE RANDOM 163 mg/dL 70-105 H (BEAKER) (test code = 652) CALCIUM (BEAKER) 8.9 mg/dL 8.4-10.2 (test code = 697) EGFR (BEAKER) (test 24 mL/min/1.73 ESTIMA DAVID GFR IS code = 1092) sq m NOT ACCURATE CREATININE CLEARANCE IN PREDICTING GLOMERULAR FILTRATION RATE . ESTIMATED GFR I S NOT APPLICABLE FOR DIALYSIS PATIEN TS. [id number] 03:30:00 Test Item Value Reference Range Interpretation Comments PHOSPHORUS (BEAKER) (test code = 5.2 mg/dL 2.3-4.7 H 604) [id number] 03:30:00 Test Item Value Reference Range Interpretation Comments MAGNESIUM (BEAKER) (test code = 1.6 mg/dL 1.6-2.6 627) [id number] 03:28:00 Test Item Value Reference Range Interpretation Comments PARTIAL THROMBOPLASTIN TIME 72.8 seconds 22.5-36.0 H (BEAKER) (test code = 760) CBC W/PLT COUNT & AUTO [id number] 03:17:00 Test Item Value Reference Range Interpretation Comments WHITE BLOOD CELL COUNT (BEAKER) 10.4 K/ L 3.5-10.5 (test code = 775) RED BLOOD CELL COUNT (BEAKER) 3.48 M/ L 4.63-6.08 L (test code = 761) HEMOGLOBIN (BEAKER) (test code = 11.2 GM/DL 13.7-17.5 L 410) HEMATOCRIT (BEAKER) (test code = 34.2 % 40.1-51.0 L 411) MEAN CORPUSCULAR VOLUME (BEAKER) 98.3 fL 79.0-92.2 H (test code = 753) MEAN CORPUSCULAR HEMOGLOBIN 32.2 pg 25.7-32.2 (BEAKER) (test code = 751) MEAN CORPUSCULAR HEMOGLOBIN CONC 32.7 GM/DL 32.3-36.5 (BEAKER) (test code = 752) RED CELL DISTRIBUTION WIDTH 14.4 % 11.6-14.4 (BEAKER) (test code = 412) PLATELET COUNT (BEAKER) (test 242 K/CU MM 150-450 code = 756) MEAN PLATELET VOLUME (BEAKER) 9.9 fL 9.4-12.4 (test code = 754) NUCLEATED RED BLOOD CELLS 0 /100 WBC 0-0 (BEAKER) (test code = 413) NEUTROPHILS RELATIVE PERCENT 74 % (BEAKER) (test code = 429) LYMPHOCYTES RELATIVE PERCENT 12 % (BEAKER) (test code = 430) MONOCYTES RELATIVE PERCENT 9 % (BEAKER) (test code = 431) EOSINOPHILS RELATIVE PERCENT 3 % (BEAKER) (test code = 432) BASOPHILS RELATIVE PERCENT 1 % (BEAKER) (test code = 437) NEUTROPHILS ABSOLUTE COUNT 7.73 K/ L 1.78-5.38 H (BEAKER) (test code = 670) LYMPHOCYTES ABSOLUTE COUNT 1.27 K/ L 1.32-3.57 L (BEAKER) (test code = 414) MONOCYTES ABSOLUTE COUNT (BEAKER) 0.93 K/ L 0.30-0.82 H (test code = 415) EOSINOPHILS ABSOLUTE COUNT 0.30 K/ L 0.04-0.54 (BEAKER) (test code = 416) BASOPHILS ABSOLUTE COUNT (BEAKER) 0.05 K/ L 0.01-0.08 (test code = 417) IMMATURE GRANULOCYTES-RELATIVE 1 % 0-1 PERCENT (BEAKER) (test code = 2801) POCT-GLUCOSE [id number] 00:35:00 Test Item Value Reference Range Interpretation Comments POC-GLUCOSE METER 195 mg/dL 70-110 H TESTED AT [facility] 6720 (BEAKER) (test code = [place] 1538) [address] [id number] 20:37:00 Test Item Value Reference Range Interpretation Comments PARTIAL THROMBOPLASTIN TIME 50.2 seconds 22.5-36.0 H (BEAKER) (test code = 760) POCT-GLUCOSE [id number] 18:35:00 Test Item Value Reference Range Interpretation Comments POC-GLUCOSE METER 173 mg/dL 70-110 H TESTED AT [facility] 6720 (BEAKER) (test code = NIKO Harp [facility] 1538) [address] BRONCHIAL CULTURE + GRAM [id number] 15:38:00 Test Item Value Reference Range Interpretation Comments CULTURE (BEAKER) <1+ Normal respiratory (test code = 1095) jeana present GRAM STAIN RESULT No White blood cells (BEAKER) (test code = seen 1123) GRAM STAIN RESULT No organisms seen (BEAKER) (test code = 60883) SPUTUM CULTURE + GRAM [id number] 14:47:00 Test Item Value Reference Range Interpretation Comments CULTURE (BEAKER) (test See comment code = 1095) GRAM STAIN RESULT <1+ WBCs (BEAKER) (test code = 1123) GRAM STAIN RESULT 0-5 epithelial cells (BEAKER) (test code = 138901) GRAM STAIN RESULT No organisms seen (BEAKER) (test code = 694436) <1+ yeast1+ Normal respiratory jeana presentMRSA [id number] 14:46:00 Test Item Value Reference Range Interpretation Comments CULTURE (BEAKER) (test code No MRSA isolated = 1095) SPUTUM CULTURE + GRAM [id number] 14:45:00 Test Item Value Reference Range Interpretation Comments CULTURE (BEAKER) See comment (test code = 1095) GRAM STAIN RESULT 2+ White blood cells (BEAKER) (test code = seen 1123) GRAM STAIN RESULT 0-5 epithelial cells (BEAKER) (test code = 582801) GRAM STAIN RESULT 1+ gram positive cocci (BEAKER) (test code = in pairs 054551) 1+ yeast1+ Normal respiratory jeana [id number] 14:20:00 Test Item Value Reference Range Interpretation Comments PARTIAL THROMBOPLASTIN TIME 57.9 seconds 22.5-36.0 H (BEAKER) (test code = 760) [id number] 12:47:00 Test Item Value Reference Range Interpretation Comments PARTIAL THROMBOPLASTIN TIME > seconds 22.5-36.0 HH (BEAKER) (test code = 760) POCT-GLUCOSE [id number] 12:39:00 Test Item Value Reference Range Interpretation Comments POC-GLUCOSE METER 194 mg/dL 70-110 H TESTED AT [place] [address] ([facility]) (test code = NIKO Harp [facility] 1538) [address] VITAMIN [id number] 08:56:00 Test Item Value Reference Range Interpretation Comments VITAMIN B12 (BEAKER) (test code = 1677 pg/mL 213-816 H 774) Next blood drawNext blood [id number] 08:56:00 Test Item Value Reference Range Interpretation Comments FERRITIN (BEAKER) (test code = 361) 320 ng/mL 5-275 H Next blood drawNext blood drawPOCT-GLUCOSE [id number] 07:15:00 Test Item Value Reference Range Interpretation Comments POC-GLUCOSE METER 195 mg/dL 70-110 H TESTED AT [place] [address] ([facility]) (test code = [facility] 1538) [address] [id number] 05:51:00 Test Item Value Reference Range Interpretation Comments PARTIAL THROMBOPLASTIN TIME 47.1 seconds 22.5-36.0 H (BEAKER) (test code = 760) BASIC METABOLIC [id number] 05:40:00 Test Item Value Reference Range Interpretation Comments SODIUM (BEAKER) 142 meq/L 136-145 (test code = 381) POTASSIUM (BEAKER) 4.6 meq/L 3.5-5.1 (test code = 379) CHLORIDE (BEAKER) 107 meq/L 98-107 (test code = 382) CO2 (BEAKER) (test 23 meq/L 22-29 code = 355) BLOOD UREA NITROGEN 83 mg/dL 7-21 H (BEAKER) (test code = 354) CREATININE (BEAKER) 3.16 mg/dL 0.57-1.25 H (test code = 358) GLUCOSE RANDOM 224 mg/dL 70-105 H (BEAKER) (test code = 652) CALCIUM (BEAKER) 9.0 mg/dL 8.4-10.2 (test code = 697) EGFR (BEAKER) (test 19 mL/min/1.73 ESTIMA DAVID GFR IS code = 1092) sq m NOT ACCURATE CREATININE CLEARANCE IN PREDICTING GLOMERULAR FILTRATION RATE . ESTIMATED GFR I S NOT APPLICABLE FOR DIALYSIS PATIEN TS. [id number] 05:33:00 Test Item Value Reference Range Interpretation Comments MAGNESIUM (BEAKER) (test code = 1.9 mg/dL 1.6-2.6 627) [id number] 05:16:00 Test Item Value Reference Range Interpretation Comments PROCALCITONIN (BEAKER) (test code 0.89 ng/mL <0.05 H = 3036) SEPSIS RISK (ng/mL)Low: 0.05-0.50Intermediate: 0.51-2.00High: >=[id number] 05:10:00 Test Item Value Reference Range Interpretation Comments PARTIAL THROMBOPLASTIN TIME > seconds 22.5-36.0 HH (BEAKER) (test code = 760) [id number] 04:43:00 Test Item Value Reference Range Interpretation Comments PHOSPHORUS (BEAKER) (test code = 6.3 mg/dL 2.3-4.7 H 604) POCT-GLUCOSE [id number] 00:30:00 Test Item Value Reference Range Interpretation Comments POC-GLUCOSE METER 190 mg/dL 70-110 H TESTED AT [facility] 6720 (BEAKER) (test code = NIKO Harp [facility] 1538) [address] [id number] 22:42:00 Test Item Value Reference Range Interpretation Comments PARTIAL THROMBOPLASTIN TIME 30.8 seconds 22.5-36.0 (BEAKER) (test code = 760) [id number] 21:48:00 Test Item Value Reference Range Interpretation Comments PARTIAL THROMBOPLASTIN TIME 32.1 seconds 22.5-36.0 (BEAKER) (test code = 760) [id number] 20:02:00 Test Item Value Reference Range Interpretation Comments PARTIAL THROMBOPLASTIN TIME 154.5 seconds 22.5-36.0 HH (BEAKER) (test code = 760) U/S, RENAL, [id number] 17:24:00Reason for exam:->AKIFINAL REPORT Ultrasound of the [...] Signed: Reymundo Waters MDReport Verified Date/Time: 01/19/2019 17:24:49 Reading Location: [address] Ultrasound Reading Room POCT-GLUCOSE [id number] 16:20:00 Test Item Value Reference Range Interpretation Comments POC-GLUCOSE METER 217 mg/dL 70-110 H TESTED AT [facility] 6720 (BEAKER) (test code = NIKO Harp [facility] 1538) [address] BLOOD GAS, [id number] 13:45:00 Test Item Value Reference Range Interpretation Comments PH ARTERIAL (BEAKER) (test code = 7.42 7.35-7.45 383) PCO2 ARTERIAL (BEAKER) (test code 37 mmHg 35-45 = 384) PO2 ARTERIAL (BEAKER) (test code 155 mmHg 80-90 H = 385) O2 SATURATION ARTERIAL (BEAKER) 99.0 % 96.0-97.0 H (test code = 386) HCO3 ARTERIAL (BEAKER) (test code 23 mmol/L 21-29 = 388) BASE EXCESS ARTERIAL (BEAKER) -0.8 mmol/L -2.0-3.0 (test code = 387) PATIENT TEMPERATURE (BEAKER) 37.5 C (test code = 1818) FIO2 (BEAKER) (test code = 1819) 40.0 % For 30 minutes AFTER [id number] 12:36:00 Test Item Value Reference Range Interpretation Comments PARTIAL THROMBOPLASTIN 102.5 seconds 22.5-36.0 H Spec imen not TIME (BEAKER) (test clotted code = 760) RAD, CHEST, 1 VIEW, NON [id number] 11:12:00Reason for exam:->pnaShould this be performed at [...] in the right brachiocephalic vein. Signed: Keya Harriseport Verified Date/Time: 01/19/2019 11:12:39 Reading Location: [facility]iology Reading Room POCT-GLUCOSE [id number] 06:18:00 Test Item Value Reference Range Interpretation Comments POC-GLUCOSE METER 224 mg/dL 70-110 H TESTED AT [facility] 6720 ([facility]) ([facility] 1538[facility] [address] [id number] 05:20:00 Test Item Value Reference Range Interpretation Comments PARTIAL THROMBOPLASTIN TIME 28.9 seconds 22.5-36.0 (BEAKER) (test code = 760) VITAMIN [id number] 04:57:00 Test Item Value Reference Range Interpretation Comments VITAMIN B12 (BEAKER) (test code = 1685 pg/mL 213-816 H 774) Next blood drawNext blood [id number] 04:57:00 Test Item Value Reference Range Interpretation Comments FERRITIN (BEAKER) (test code = 361) 320 ng/mL 5-275 H Next blood drawNext blood drawBASIC METABOLIC [id number] 04:35:00 Test Item Value Reference Range Interpretation Comments SODIUM (BEAKER) 138 meq/L 136-145 (test code = 381) POTASSIUM (BEAKER) 4.7 meq/L 3.5-5.1 (test code = 379) CHLORIDE (BEAKER) 105 meq/L 98-107 (test code = 382) CO2 (BEAKER) (test 21 meq/L 22-29 L code = 355) BLOOD UREA NITROGEN 82 mg/dL 7-21 H (BEAKER) (test code = 354) CREATININE (BEAKER) 3.52 mg/dL 0.57-1.25 H (test code = 358) GLUCOSE RANDOM 209 mg/dL 70-105 H (BEAKER) (test code = 652) CALCIUM (BEAKER) 8.8 mg/dL 8.4-10.2 (test code = 697) EGFR (BEAKER) (test 17 mL/min/1.73 ESTIMA DAVID GFR IS code = 1092) sq m NOT ACCURATE CREATININE CLEARANCE IN PREDICTING GLOMERULAR FILTRATION RATE . ESTIMATED GFR I S NOT APPLICABLE FOR DIALYSIS PATIEN TS. [id number] 04:34:00 Test Item Value Reference Range Interpretation Comments PHOSPHORUS (BEAKER) (test code = 5.8 mg/dL 2.3-4.7 H 604) [id number] 04:34:00 Test Item Value Reference Range Interpretation Comments MAGNESIUM (BEAKER) (test code = 1.9 mg/dL 1.6-2.6 627) VANCOMYCIN LEVEL, [id number] 04:27:00 Test Item Value Reference Range Interpretation Comments VANCOMYCIN RANDOM (BEAKER) (test 14.6 ug/mL code = 523) Reference Range: No NormalsCBC W/PLT COUNT & AUTO [id number] 04:25:00 Test Item Value Reference Range Interpretation Comments WHITE BLOOD CELL COUNT (BEAKER) 11.6 K/ L 3.5-10.5 H (test code = 775) RED BLOOD CELL COUNT (BEAKER) 3.57 M/ L 4.63-6.08 L (test code = 761) HEMOGLOBIN (BEAKER) (test code = 11.4 GM/DL 13.7-17.5 L 410) HEMATOCRIT (BEAKER) (test code = 34.0 % 40.1-51.0 L 411) MEAN CORPUSCULAR VOLUME (BEAKER) 95.2 fL 79.0-92.2 H (test code = 753) MEAN CORPUSCULAR HEMOGLOBIN 31.9 pg 25.7-32.2 (BEAKER) (test code = 751) MEAN CORPUSCULAR HEMOGLOBIN CONC 33.5 GM/DL 32.3-36.5 (BEAKER) (test code = 752) RED CELL DISTRIBUTION WIDTH 14.2 % 11.6-14.4 (BEAKER) (test code = 412) PLATELET COUNT (BEAKER) (test 220 K/CU MM 150-450 code = 756) MEAN PLATELET VOLUME (BEAKER) 9.7 fL 9.4-12.4 (test code = 754) NUCLEATED RED BLOOD CELLS 0 /100 WBC 0-0 (BEAKER) (test code = 413) NEUTROPHILS RELATIVE PERCENT 77 % (BEAKER) (test code = 429) LYMPHOCYTES RELATIVE PERCENT 9 % (BEAKER) (test code = 430) MONOCYTES RELATIVE PERCENT 8 % (BEAKER) (test code = 431) EOSINOPHILS RELATIVE PERCENT 2 % (BEAKER) (test code = 432) BASOPHILS RELATIVE PERCENT 1 % (BEAKER) (test code = 437) NEUTROPHILS ABSOLUTE COUNT 8.88 K/ L 1.78-5.38 H (BEAKER) (test code = 670) LYMPHOCYTES ABSOLUTE COUNT 1.04 K/ L 1.32-3.57 L (BEAKER) (test code = 414) MONOCYTES ABSOLUTE COUNT (BEAKER) 0.92 K/ L 0.30-0.82 H (test code = 415) EOSINOPHILS ABSOLUTE COUNT 0.19 K/ L 0.04-0.54 (BEAKER) (test code = 416) BASOPHILS ABSOLUTE COUNT (BEAKER) 0.06 K/ L 0.01-0.08 (test code = 417) IMMATURE GRANULOCYTES-RELATIVE 5 % 0-1 H PERCENT (BEAKER) (test code = 2801) POCT-GLUCOSE [id number] 02:05:00 Test Item Value Reference Range Interpretation Comments POC-GLUCOSE METER 145 mg/dL 70-110 H TESTED AT [facility] 6720 (BEAKER) (test code = [place] 1538) [address] BODY FLUID CELL COUNT WITH [id number] 18:40:00 Test Item Value Reference Range Interpretation Comments APPEARANCE FLUID (BEAKER) (test Hazy Clear A code = 510) COLOR FLUID (BEAKER) (test code [place] Colorless, Straw A = 511) RBC FLUID (BEAKER) (test code = 3450 /cu mm <=1 H 513) ADJUSTED WBC FLUID (BEAKER) 145 /cu mm <=5 H (test code = 1691) LINING CELLS (BEAKER) (test code 0 /cu mm <=1 = 1590) NEUTROPHILS FLUID (BEAKER) (test 85 % code = 1656) LYMPHS FLUID (BEAKER) (test code 0 % = 488) MONO/MACROPHAGE FLUID (BEAKER) 15 % (test code = 489) EOSINOPHILS FLUID (BEAKER) (test 0 % code = 491) BASO FLUID (BEAKER) (test code = 0 % 492) CONTAINER BODY FLUID (BEAKER) EDTA Tube (test code = 2873) POCT-GLUCOSE [id number] 18:12:00 Test Item Value Reference Range Interpretation Comments POC-GLUCOSE METER 195 mg/dL 70-110 H TESTED AT [place] [address] ([facility]) (test code = [place] 1538) [address] VITAMIN D, [id number] 15:12:00 Test Item Value Reference Range Interpretation Comments VITAMIN D 25-OH (BEAKER) (test 31.9 ng/mL 6.6-49.9 code = 2764) Effective 09/01/2017: Reference Range ChangeNew: 6.6-49.9 ng/mL Previous: 13.0-47.8 ng/mLRecommended Vitamin D Target Range: 30.0-40.0 ng/mLPTH, INTACT 2019-01-18 14:57:00 Test Item Value Reference Range Interpretation Comments PARATHYROID HORMONE INTACT 251.9 pg/mL 8.5-72.5 H (BEAKER) (test code = 577) POTASSIUM, RANDOM [id number] 14:55:00 Test Item Value Reference Range Interpretation Comments POTASSIUM URINE (BEAKER) (test 21.6 meq/L code = 195) Reference Range: No NormalsUREA NITROGEN, RANDOM [id number] 14:55:00 Test Item Value Reference Range Interpretation Comments UREA NITROGEN URINE (BEAKER) (test 603 mg/dL code = 538) Reference Range: No NormalsPOCT-GLUCOSE [id number] 12:17:00 Test Item Value Reference Range Interpretation Comments POC-GLUCOSE METER 170 mg/dL 70-110 H TESTED AT [facility] 6720 [facility] (test code = [place] 1538) [address] [id number] 10:56:00 Test Item Value Reference Range Interpretation Comments PARTIAL THROMBOPLASTIN TIME 35.0 seconds 22.5-36.0 (BEAKER) (test code = 760) Prior to initiating heparinRAD, ABDOMEN/KUB, 1 VIEW [id number] 08:28:00Reason for exam:->OG positioningFINAL REPORT Abdomen date 01/18/2019 Comment: Frontal view of the abdomen demonstrates a nasogastric tube present with tip noted in the body of the stomach. Signed: Keya Harris MDReport Verified Date/Time: 01/18/2019 08:28:12 Reading Location: [facility] Reading Room POCT-GLUCOSE [id number] 06:12:00 Test Item Value Reference Range Interpretation Comments POC-GLUCOSE METER 161 mg/dL 70-110 H TESTED AT [facility] 67[address] (BEAKER) (test code = [place] 1538) [address] VITAMIN [id number] 04:17:00 Test Item Value Reference Range Interpretation Comments VITAMIN B12 (BEAKER) (test code = 1363 pg/mL 213-816 H 774) Next blood drawNext blood drawNext blood [id number] 04:17:00 Test Item Value Reference Range Interpretation Comments FERRITIN (BEAKER) (test code = 361) 306 ng/mL 5-275 H Next blood drawNext blood drawNext blood drawURINALYSIS W/ REFLEX URINE CULTURE 2019-01-18 03:55:00 Test Item Value Reference Range Interpretation Comments COLOR (BEAKER) (test code = 470) Yellow CLARITY (BEAKER) (test code = 469) Cloudy SPECIFIC GRAVITY UA (BEAKER) (test 1.012 1.001-1.035 code = 468) PH UA (BEAKER) (test code = 467) 5.5 5.0-8.0 PROTEIN UA (BEAKER) (test code = 30 mg/dL Negative A 464) GLUCOSE UA (BEAKER) (test code = Negative Negative 365) KETONES UA (BEAKER) (test code = Negative Negative 371) BILIRUBIN UA (BEAKER) (test code = Negative Negative 462) BLOOD UA (BEAKER) (test code = Moderate Negative A 461) NITRITE UA (BEAKER) (test code = Negative Negative 465) LEUKOCYTE ESTERASE UA (BEAKER) Large Negative A (test code = 466) UROBILINOGEN UA (BEAKER) (test 0.2 mg/dL 0.2-1.0 code = 463) RBC UA (BEAKER) (test code = 519) 27 /HPF WBC UA (BEAKER) (test code = 520) 536 /HPF BACTERIA (BEAKER) (test code = Few 517) MUCUS (BEAKER) (test code = 1574) Occasional SQUAMOUS EPITHELIAL (BEAKER) (test 3 /HPF code = 516) AMORPHOUS CRYSTALS (BEAKER) (test Moderate code = 1584) YEAST (BEAKER) (test code = 1585) Many SOURCE(BEAKER) (test code = 7345) IRON, TIBC, % SAT. (WITHOUT FERRITIN)2019-01-18 03:54:00 Test Item Value Reference Range Interpretation Comments IRON (BEAKER) (test code = 547) 59.0 ug/dL 40.0-160.0 TOTAL IRON BINDING CAPACITY 160 ug/dL 250-450 L (BEAKER) (test code = 769) IRON % SATURATION (2) (BEAKER) 37 % 20-55 (test code = 2590) Next blood drawNext blood drawNext blood drawCOMPREHENSIVE METABOLIC PANEL 2019-01-18 03:16:00 Test Item Value Reference Range Interpretation Comments TOTAL PROTEIN 6.0 gm/dL 6.0-8.3 (BEAKER) (test code = 770) ALBUMIN (BEAKER) 2.7 g/dL 3.5-5.0 L (test code = 1145) ALKALINE PHOSPHATASE 83 U/L 40-150 (BEAKER) (test code = 346) BILIRUBIN TOTAL 1.0 mg/dL 0.2-1.2 (BEAKER) (test code = 377) SODIUM (BEAKER) (test 136 meq/L 136-145 code = 381) POTASSIUM (BEAKER) 4.3 meq/L 3.5-5.1 (test code = 379) CHLORIDE (BEAKER) 104 meq/L 98-107 (test code = 382) CO2 (BEAKER) (test 20 meq/L 22-29 L code = 355) BLOOD UREA NITROGEN 80 mg/dL 7-21 H (BEAKER) (test code = 354) CREATININE (BEAKER) 3.90 mg/dL 0.57-1.25 H (test code = 358) GLUCOSE RANDOM 151 mg/dL 70-105 H (BEAKER) (test code = 652) CALCIUM (BEAKER) 8.2 mg/dL 8.4-10.2 L (test code = 697) AST (SGOT) (BEAKER) 26 U/L 5-34 (test code = 353) ALT (SGPT) (BEAKER) 21 U/L 6-55 (test code = 347) EGFR (BEAKER) (test 15 mL/min/1.73 ESTIMA DAVID GFR IS code = 1092) sq m NOT ACCURATE CREATININE CLEARANCE IN PREDICTING GLOMERULAR FILTRATION RATE . ESTIMATED GFR I S NOT APPLICABLE FOR DIALYSIS PATIEN TS. B-TYPE NATRIURETIC FACTOR (BNP)2019-01-18 03:08:00 Test Item Value Reference Range Interpretation Comments B-TYPE NATRIURETIC PEPTIDE (BEAKER) 114 pg/mL 0-100 H (test code = 700) CREATININE, RANDOM [id number] 03:01:00 Test Item Value Reference Range Interpretation Comments CREATININE URINE (BEAKER) (test 82.0 mg/dL code = 375) Reference Range: No NormalsPROTEIN, RANDOM [id number] 03:01:00 Test Item Value Reference Range Interpretation Comments PROTEIN, URINE (BEAKER) (test code = 23 mg/dL 0-14 H 1569) SODIUM, RANDOM [id number] 03:01:00 Test Item Value Reference Range Interpretation Comments SODIUM URINE (BEAKER) (test code = 30 meq/L 243) Reference Range: No [id number] 02:58:00 Test Item Value Reference Range Interpretation Comments PHOSPHORUS (BEAKER) (test code = 5.3 mg/dL 2.3-4.7 H 604) [id number] 02:58:00 Test Item Value Reference Range Interpretation Comments MAGNESIUM (BEAKER) (test code = 1.8 mg/dL 1.6-2.6 627) LACTIC ACID, ARTERIAL, WHOLE [id number] 02:57:00 Test Item Value Reference Range Interpretation Comments LACTATE BLOOD 0.7 mmol/L 0.5-2.2 Specimen sligh tly ARTERIAL (2) (BEAKER) hemoly zed (test code = 2874) PROTHROMBIN TIME/[id number] 02:53:00 Test Item Value Reference Range Interpretation Comments PROTIME (BEAKER) (test code = 15.9 seconds 11.7-14.7 H 759) INR (BEAKER) (test code = 370) 1.3 <=5.9 RECOMMENDED COUMADIN/WARFARIN INR THERAPY RANGESSTANDARD DOSE: 2.0 - 3.0 Includes: PROPHYLAXIS forvenous thrombosis, systemic embolization; TREATMENT for venous thrombosis and/or pulmonary embolus.HIGH RISK: Target INR is 2.5-3.5 for patients with mechanical heart valves.[id number] 02:53:00 Test Item Value Reference Range Interpretation Comments PARTIAL THROMBOPLASTIN TIME 35.0 seconds 22.5-36.0 (BEAKER) (test code = 760) CBC W/PLT COUNT & AUTO [id number] 02:47:00 Test Item Value Reference Range Interpretation Comments WHITE BLOOD CELL COUNT (BEAKER) 11.3 K/ L 3.5-10.5 H (test code = 775) RED BLOOD CELL COUNT (BEAKER) 3.51 M/ L 4.63-6.08 L (test code = 761) HEMOGLOBIN (BEAKER) (test code = 10.8 GM/DL 13.7-17.5 L 410) HEMATOCRIT (BEAKER) (test code = 33.4 % 40.1-51.0 L 411) MEAN CORPUSCULAR VOLUME (BEAKER) 95.2 fL 79.0-92.2 H (test code = 753) MEAN CORPUSCULAR HEMOGLOBIN 30.8 pg 25.7-32.2 (BEAKER) (test code = 751) MEAN CORPUSCULAR HEMOGLOBIN CONC 32.3 GM/DL 32.3-36.5 (BEAKER) (test code = 752) RED CELL DISTRIBUTION WIDTH 14.2 % 11.6-14.4 (BEAKER) (test code = 412) PLATELET COUNT (BEAKER) (test 172 K/CU MM 150-450 code = 756) MEAN PLATELET VOLUME (BEAKER) 9.5 fL 9.4-12.4 (test code = 754) NUCLEATED RED BLOOD CELLS 0 /100 WBC 0-0 (BEAKER) (test code = 413) NEUTROPHILS RELATIVE PERCENT 70 % (BEAKER) (test code = 429) LYMPHOCYTES RELATIVE PERCENT 10 % (BEAKER) (test code = 430) MONOCYTES RELATIVE PERCENT 10 % (BEAKER) (test code = 431) EOSINOPHILS RELATIVE PERCENT 2 % (BEAKER) (test code = 432) BASOPHILS RELATIVE PERCENT 1 % (BEAKER) (test code = 437) NEUTROPHILS ABSOLUTE COUNT 7.88 K/ L 1.78-5.38 H (BEAKER) (test code = 670) LYMPHOCYTES ABSOLUTE COUNT 1.16 K/ L 1.32-3.57 L (BEAKER) (test code = 414) MONOCYTES ABSOLUTE COUNT (BEAKER) 1.13 K/ L 0.30-0.82 H (test code = 415) EOSINOPHILS ABSOLUTE COUNT 0.25 K/ L 0.04-0.54 (BEAKER) (test code = 416) BASOPHILS ABSOLUTE COUNT (BEAKER) 0.07 K/ L 0.01-0.08 (test code = 417) IMMATURE GRANULOCYTES-RELATIVE 7 % 0-1 H PERCENT (BEAKER) (test code = 2801) RAD, CHEST, 1 VIEW, NON [id number] 02:39:00Reason for exam:->advanced ET.Should this be performed [...] Stable contours. Additional findings: None. Signed: Lauren Christineeport Verified Date/Time: 01/18/2019 02:39:22 Reading Location: [address] Transitional Reading Room BLOOD GAS, [id number] 02:20:00 Test Item Value Reference Range Interpretation Comments PH ARTERIAL (BEAKER) (test code = 7.41 7.35-7.45 383) PCO2 ARTERIAL (BEAKER) (test code 39 mmHg 35-45 = 384) PO2 ARTERIAL (BEAKER) (test code 89 mmHg 80-90 = 385) O2 SATURATION ARTERIAL (BEAKER) 96.8 % 96.0-97.0 (test code = 386) HCO3 ARTERIAL (BEAKER) (test code 24 mmol/L 21-29 = 388) BASE EXCESS ARTERIAL (BEAKER) -0.4 mmol/L -2.0-3.0 (test code = 387) PATIENT TEMPERATURE (BEAKER) 37.1 C (test code = 1818) FIO2 (BEAKER) (test code = 1819) 50.0 % RAD, CHEST, 1 VIEW, NON [id number] 02:18:00Post-intubationReason for exam:- >intubated, pneumoniaShould this be performed at the bedside?->YesFINAL REPORT RAD, CHEST, 1 VIEW, NON DEPT INDICATION: intubated, pneumonia COMPARISON: None available FINDINGS: Portable frontal [...] in the right base. Small bilateral pleural effusi ons. No pneumothorax.Heart and mediastinum: Stable contours. Additional findings: Mild dextrocurvature of the thoracic spine. Signed: Lauren Christine MDReport Verified Date/Time: 01/18/2019 02:18:06 Reading Location: [id number] Transitional Reading Room
[2021-10-04] MEDS: WARFARIN SODIUM 2.5 MG TAB PO SCH (17:04)
--- NOTE | 2021-10-04 20:36 | P.PN ---
Date of Service: 10/04/21 Vital Signs Temp Pulse Resp BP Pulse Ox 97.2 F 88 16 118/63 96 10/04/21 16:32 10/04/21 20:02 10/04/21 16:32 10/04/21 20:02 10/04/21 16:32 Medications Acetaminophen (Acetaminophen 500 Mg Tab) 500 mg PO Q4HP PRN PRN Reason: Pain scale 2-4 (Mild) Last Admin: 09/25/21 10:36 Dose: 500 mg Documented by: Hydrocodone Bitart/Acetaminophen (Hydrocodone/Apap 5/325 Mg Tab) 1 tab PO Q6H PRN PRN Reason: Pain scale 5-7 (Moderate) Last Admin: 10/03/21 06:39 Dose: 1 tab Documented by: Albuterol Sulfate (Albuterol 2.5 Mg/3 Ml Neb Cristal) 2.5 mg NEB [id number] PRN PRN Reason: SHORTNESS OF BREATH Amiloride HCl (Amiloride Hcl 5 Mg Tablet) 10 mg PO BID [facility] Last Admin: 10/04/21 20:02 Dose: 10 mg Documented by: Ascorbic Acid (Ascorbic Acid 500 Mg Tablet) 1,000 mg PO DAILY [facility] Last Admin: 10/04/21 08:52 Dose: 1,000 mg Documented by: Bumetanide (Bumetanide 1 Mg Tablet) 2 mg PO BIDAC [facility] Last Admin: 10/04/21 17:00 Dose: 2 mg Documented by: Cholecalciferol (Vitamin D 5,000 Unit Cap) 5,000 unit PO DAILY [facility] Last Admin: 10/04/21 08:51 Dose: 5,000 unit Documented by: Diltiazem HCl (Diltiazem Hcl 120 Mg Sr Cap) 120 mg PO BID [facility] Last Admin: 10/04/21 20:02 Dose: 120 mg Documented by: Gabapentin (Gabapentin 400 Mg Cap) 400 mg PO BID [facility] Last Admin: 10/04/21 20:02 Dose: 400 mg Documented by: Gabapentin (Gabapentin 300 Mg Cap) 300 mg PO BID [facility] Last Admin: 10/04/21 20:02 Dose: 300 mg Documented by: Insulin Human Regular (Insulin -Regular Human 50 Unit/0.5 Ml Ml) 0 unit SQ [facility]; Protocol Last Admin: 10/04/21 20:03 Dose: Not Given Documented by: Levofloxacin (Levofloxacin 750 Mg Tab) 750 mg PO Q48H [facility] Stop: 10/10/21 09:01 Last Admin: 10/04/21 08:51 Dose: 750 mg Documented by: Multivitamins/Iron (Fe Sulf/Fa/Vit B Comp & C Tab) 1 tab PO DAILY WITH BREAKFAST [facility] Last Admin: 10/04/21 08:52 Dose: 1 tab Documented by: Nutritional Formula (Ensure High Protein 237 Ml Can) 237 ml PO BID PRN PRN Reason: Per patient request Last Admin: 09/28/21 14:50 Dose: 237 ml Documented by: Ondansetron HCl (Ondansetron 4 Mg/2 Ml Vial) 4 mg IV Q6HP PRN PRN Reason: NAUSEA / VOMITING Pantoprazole Sodium (Pantoprazole 40mg Tablet) 40 mg PO DAILY [facility] Last Admin: 10/04/21 08:52 Dose: 40 mg Documented by: Polyethylene Glycol (Polyethyl Gly 3350 17 Gm/Dose) 17 gm PO DAILY PRN PRN Reason: CONSTIPATION Senna (Senosides 8.6 Mg Tab) 17.2 mg PO BID [facility] Last Admin: 10/04/21 20:02 Dose: 17.2 mg Documented by: Sertraline HCl (Sertraline Hcl 50 Mg Tab) 75 mg PO DAILY [facility] Last Admin: 10/04/21 08:52 Dose: 75 mg Documented by: Sodium Chloride (Flush Normal Saline 10 Ml) 10 ml IV BID [facility] Last Admin: 10/04/21 20:02 Dose: 10 ml Documented by: Warfarin Sodium (Warfarin Sodium 2.5 Mg Tab) 2.5 mg PO DAILY 5 PM [facility] Last Admin: 10/04/21 17:04 Dose: 2.5 mg Documented by: Microbiology Results 09/24/21 16:50 Blood - Blood Aerobic Blood Culture - Final No growth in 5 days. 09/24/21 16:50 Blood - Blood Anaerobic Blood Culture - Final 09/24/21 16:50 Blood - Blood Gram Stain - Final 09/24/21 16:30 Blood - Blood Aerobic Blood Culture - Final 09/24/21 16:30 Blood - Blood Blood Culture Gram Stain - Final 09/24/21 16:30 Blood - Blood Anaerobic Blood Culture - Final No growth in 5 days. 09/24/21 17:53 Catheterized Urine [place] Count - Final >100,000 CFU/ML. 09/24/21 17:53 Catheterized Urine - Final Escherichia Coli Enterococcus Faecium Acinetobacter Gianni/Haem Assessment/ Plan: Nephrology Progress Note Reports multiple formed BMs. No dyspnea. FINK No chest pain No acute events overnight Vitals, medications blood work and imaging reviewed in the chart General: Oriented x3, Cooperative HEENT: Atraumatic, Mucous membr. moist/pink Neck: Supple, JVD distended Respiratory: Diminished Cardiovascular: Regular rate/rhythm, Edema Gastrointestinal: Soft and benign, Non-distended Musculoskeletal: No clubbing, No contractures Integumentary: No cyanosis, Skin breakdown, Skin lesion Neurological: Normal speech Blood work reviewed in the chart. Imagings Data: EXAM DESCRIPTION: RAD - Chest Single View - 09/24/2021 5:00 pm CLINICAL HISTORY: DYSPNEA COMPARISON: Chest Single View dated 12/13/2019; Chest Single View dated 07/12/2019; Chest Single View dated 01/17/2019; Chest Single View dated 01/16/2019 FINDINGS: Lines: None. Lungs: Diffuse pulmonary opacities bilaterally. Pleural: Layering bilateral pleural effusions. Cardiac: Cardiomegaly. Bones: No acute fractures. Other: IMPRESSION: Findings most consistent with pulmonary edema with bilateral pleural effusions. EXAM DESCRIPTION: CTAbdomen Pelvis W Contrast - 09/24/2021 5:37 pm CLINICAL HISTORY: ABD PAIN COMPARISON: Abdomen Pelvis W Contrast dated 08/21/2016; CT ABD PELVIS W CONTRAST dated 07/08/2014; CT ABD PELVIS W CONTRAST dated 06/25/2014 TECHNIQUE: CT of the abdomen and pelvis was performed. All CT scans are performed using dose optimization technique as appropriate and may include automated exposure control or mA/KV adjustment according to patient size. FINDINGS: Lower chest: Bilateral pleural effusions. Cardiomegaly. Coronary artery calcifications. Dependent atelectasis. Liver: Hepatic steatosis. Mild intrahepatic biliary duct dilatation is likely related to the postcholecystectomy state. Biliary: Cholecystectomy. Extrahepatic biliary ductal dilatation may be related to the postcholecystectomy state. Stomach: Surgical changes along the stomach. Duodenum: No significant focal abnormality. Pancreas: No significant abnormality. Spleen: No significant abnormality. Adrenal: No suspicious lesions. Kidney/ureter: No hydronephrosis. No renal calculi. Retroperitoneum: No retroperitoneal adenopathy. Vascular: IVC filter. Atherosclerosis. No aneurysm. Bowel: No significant focal abnormality. Peritoneum: No ascites or free air. Pronounced abdominal wall laxity. Bladder: Trace bladder gas which is likely due to instrumentation. Reproductive: No adnexal masses. Bones: No acute fracture. Heterotopic ossification adjacent to the left iliac bone is unchanged. Multilevel degenerative changes are present in the spine. Other: n/a IMPRESSION: No acute intra-abdominal or pelvic finding. Bilateral pleural effusions and probably underlying atelectasis which may be secondary to heart failure. Conclusions/Impression: KAYLAH in the setting of diuresis CKD III -No NSAIDs Hyponatremia -Continue Bumex 2mg BID -Continue fluid restriction Hypokalemia -Replete potassium prn -Continue Amiloride 10mg BID Alkalosis in the setting of diuresis -Continue Amiloride 10mg BID -Diamox prn HTN complicated by hypotension -Hold antihypertensives Diastolic CHF, A/C -2g sodium diet -Fluid restriction -Continue Bumex 2mg BID -Continue Amiloride BID DM II with hyperglycemia -RISS Moderate malnutrition -Protein supplementation Anemia in chronic illness Iron deficiency -IV iron prn Atherosclerosis of the aorta Acute cystitis -Continue Levaquin Case reviewed with Dr. Duarte
[2021-10-04] MEDS: HYDROCODONE/APAP 5/325 MG TAB PO PRN (23:31)
--- NOTE | 2021-10-05 05:47 | P.PN ---
Date of Service: 10/05/21 Subjective: reports continued improvement. pain is tolerable having some discomfort now in his bladder, since sims was exchanged. Feels Sims is not functioning correctly, states this happens every few months. ROS: 10 point ROS as noted above, otherwise negative Physical exam GEN: Alert, oriented, NAD HEENT: Normal conjunctiva, sclera anicteric CV: Irregularly irregular rhythm, 1-2+ edema b/l lower extremities Pulm: Nonlabored respirations on room air ABD: Soft, nontender, nondistended Integumentary: Bilateral lower extremity venous stasis dermatitis. Small 2 cm x 0.3 cm superficial skin tear in the left inguinal/abdominal fold, no signs of infection, no bleed MSK: mild tenderness to palpation on L knee medial aspect. L ankle: nontender Neuro: Normal speech, normal affect, bedbound, generalized weakness Problem List Acute hypoxemic respiratory failure secondary to acute on chronic diastolic congestive heart failure Urinary tract infection KAYLAH on CKD 3 Chronic atrial fibrillation on coumadin Chronic indwelling Sims catheter History of PE Hypertension Chronic lymphedema Edema and oxygen requirement improving Nephrology consulted and assisting with diuresis, continue bumex / amiloride per recommendations, renal function stable Continue fluid restriction Weaned off oxygen Urine culture: Multiple bacteria growth all sensitive to Levaquin. Continue oral Levaquin. Exchanged sims on 10/03 having some discomfort after new sims inserted. small blood clot noted, will have sims flushed today, if no improvement, will replace Continue PT. Continue Cardizem for A. fib. Continue Coumadin. Pharmacy is dosing Coumadin taken into consideration interaction with Levaquin. Monitor PT/INR daily. Continue gabapentin [place] as needed for pain. Pain of the left knee and ankle were acute on chronic, reports just increased in severity. X-rays with severe arthritic changes Dispo: Patient requested for rehab placement, however denied awaiting SNF approval Time Spent Managing Pts Care (In Minutes): 35
[2021-10-05 06:43] LABS: Hematocrit 37.3 % (39.6-49.0); MPV 7.2 fL (7.6-11.3)
[2021-10-05 06:56] LABS: Potassium 3.9 mmol/L (3.5-5.1)
[2021-10-05] MEDS: INSULIN -REGULAR HUMAN 50 UNIT/0.5 ML ML SQ SCH ×4 (07:30→20:57)
[2021-10-05] MEDS: FE SULF/FA/VIT B COMP & C TAB PO SCH (08:48)
[2021-10-05] MEDS: BUMETANIDE 1 MG TABLET PO SCH ×2 (08:48→16:27)
[2021-10-05] MEDS: DILTIAZEM HCL 120 MG SR CAP PO SCH ×2 (08:49→20:52)
[2021-10-05] MEDS: AMILORIDE HCL 5 MG TABLET PO SCH ×2 (08:49→20:51)
[2021-10-05] MEDS: GABAPENTIN 400 MG CAP PO SCH ×2 (08:49→20:53)
[2021-10-05] MEDS: GABAPENTIN 300 MG CAP PO SCH ×2 (08:49→20:53)
[2021-10-05] MEDS: SENOSIDES 8.6 MG TAB PO SCH ×2 (08:54→20:58)
[2021-10-05] MEDS: PANTOPRAZOLE 40MG TABLET PO SCH (08:54)
[2021-10-05] MEDS: VITAMIN D 5,000 UNIT CAP PO SCH (08:55)
[2021-10-05] MEDS: SERTRALINE HCL 50 MG TAB PO SCH (08:55)
[2021-10-05] MEDS: ASCORBIC ACID 500 MG TABLET PO SCH (08:55)
[2021-10-05] MEDS: HYDROCODONE/APAP 5/325 MG TAB PO PRN ×2 (09:02→20:52)
[2021-10-05 09:52] LABS: Protime INR 2.02
[2021-10-05] MEDS: WARFARIN SODIUM 2.5 MG TAB PO SCH (16:27)
[2021-10-06 05:47] LABS: Albumin 2.5 g/dL (3.4-5.0); Phosphorus 3.3 mg/dL (2.5-4.9); Potassium 4.4 mmol/L (3.5-5.1)
--- NOTE | 2021-10-06 05:53 | P.PN ---
Date of Service: 10/06/21 Subjective: No acute events overnight. Patient reports continued to feel better each day Insurance approval/facility approval for SNF No longer feeling of pressure using yesterday from Sims catheter ROS: 10 point ROS as noted above, otherwise negative Physical exam GEN: Alert, oriented, NAD HEENT: Normal conjunctiva, sclera anicteric CV: Irregularly irregular rhythm, 1-2+ edema b/l lower extremities, pitting up to posterior thighs Pulm: Nonlabored respirations on room air ABD: Soft, nontender, nondistended Integumentary: Bilateral lower extremity venous stasis dermatitis. Small 2 cm x 0.3 cm superficial skin tear in the left inguinal/abdominal fold, no signs of infection, no bleed MSK: mild tenderness to palpation on L knee medial aspect Neuro: Normal speech, normal affect, bedbound, generalized weakness Problem List Acute hypoxemic respiratory failure secondary to acute on chronic diastolic congestive heart failure Urinary tract infection KAYLAH on CKD 3 Chronic atrial fibrillation on coumadin Chronic indwelling Sims catheter History of PE Hypertension Chronic lymphedema Edema and oxygen requirement improving Nephrology consulted and assisting with diuresis, continue bumex / amiloride per recommendations, renal function slightly increased today Weaned off oxygen Urine culture: Multiple bacteria growth all sensitive to Levaquin. Continue oral Levaquin. Exchanged sims on 10/03 Had some discomfort in Sims catheter on 10/05, resolved after some light flushing Continue PT. Continue Cardizem for A. fib. Continue Coumadin. Pharmacy is dosing Coumadin taken into consideration interaction with Levaquin. Monitor PT/INR daily. Continue gabapentin [place] as needed for pain. Pain of the left knee and ankle were acute on chronic, reports just increased in severity. X-rays with severe arthritic changes Dispo: Patient requested for rehab placement, however denied awaiting SNF approval Time Spent Managing Pts Care (In Minutes): 35
[2021-10-06] MEDS: INSULIN -REGULAR HUMAN 50 UNIT/0.5 ML ML SQ SCH ×4 (08:04→20:41)
[2021-10-06] MEDS: FE SULF/FA/VIT B COMP & C TAB PO SCH (08:05)
[2021-10-06] MEDS: VITAMIN D 5,000 UNIT CAP PO SCH (09:05)
[2021-10-06] MEDS: GABAPENTIN 400 MG CAP PO SCH ×2 (09:05→20:21)
[2021-10-06] MEDS: ASCORBIC ACID 500 MG TABLET PO SCH (09:05)
[2021-10-06] MEDS: BUMETANIDE 1 MG TABLET PO SCH ×2 (09:05→16:26)
[2021-10-06] MEDS: PANTOPRAZOLE 40MG TABLET PO SCH (09:05)
[2021-10-06] MEDS: SERTRALINE HCL 50 MG TAB PO SCH (09:06)
[2021-10-06] MEDS: AMILORIDE HCL 5 MG TABLET PO SCH ×2 (09:06→20:20)
[2021-10-06] MEDS: SENOSIDES 8.6 MG TAB PO SCH ×2 (09:06→20:21)
[2021-10-06] MEDS: levoFLOXacin 750 MG TAB PO SCH (09:06)
[2021-10-06] MEDS: DILTIAZEM HCL 120 MG SR CAP PO SCH ×2 (09:07→20:21)
[2021-10-06] MEDS: GABAPENTIN 300 MG CAP PO SCH ×2 (09:07→20:20)
[2021-10-06 09:35] LABS: Protime INR 2.15
[2021-10-06] MEDS: WARFARIN SODIUM 2.5 MG TAB PO SCH (16:26)
--- NOTE | 2021-10-06 18:56 | P.PN ---
Date of Service: 10/06/21 Vital Signs Temp Pulse Resp BP Pulse Ox 97.6 F 94 H 20 103/66 96 10/06/21 16:00 10/06/21 16:00 10/06/21 16:00 10/06/21 16:00 10/06/21 16:00 Medications Acetaminophen (Acetaminophen 500 Mg Tab) 500 mg PO Q4HP PRN PRN Reason: Pain scale 2-4 (Mild) Last Admin: 09/25/21 10:36 Dose: 500 mg Documented by: Hydrocodone Bitart/Acetaminophen (Hydrocodone/Apap 5/325 Mg Tab) 1 tab PO Q6H PRN PRN Reason: Pain scale 5-7 (Moderate) Last Admin: 10/05/21 20:52 Dose: 1 tab Documented by: Albuterol Sulfate (Albuterol 2.5 Mg/3 Ml Neb Cristal) 2.5 mg NEB [id number] PRN PRN Reason: SHORTNESS OF BREATH Amiloride HCl (Amiloride Hcl 5 Mg Tablet) 10 mg PO BID [facility] Last Admin: 10/06/21 09:06 Dose: 10 mg Documented by: Ascorbic Acid (Ascorbic Acid 500 Mg Tablet) 1,000 mg PO DAILY [facility] Last Admin: 10/06/21 09:05 Dose: 1,000 mg Documented by: Bumetanide (Bumetanide 1 Mg Tablet) 2 mg PO BIDAC [facility] Last Admin: 10/06/21 16:26 Dose: 2 mg Documented by: Cholecalciferol (Vitamin D 5,000 Unit Cap) 5,000 unit PO DAILY [facility] Last Admin: 10/06/21 09:05 Dose: 5,000 unit Documented by: Diltiazem HCl (Diltiazem Hcl 120 Mg Sr Cap) 120 mg PO BID [facility] Last Admin: 10/06/21 09:07 Dose: 120 mg Documented by: Gabapentin (Gabapentin 400 Mg Cap) 400 mg PO BID [facility] Last Admin: 10/06/21 09:05 Dose: 400 mg Documented by: Gabapentin (Gabapentin 300 Mg Cap) 300 mg PO BID [facility] Last Admin: 10/06/21 09:07 Dose: 300 mg Documented by: Insulin Human Regular (Insulin -Regular Human 50 Unit/0.5 Ml Ml) 0 unit SQ [facility]; Protocol Last Admin: 10/06/21 16:52 Dose: 2 unit Documented by: Levofloxacin (Levofloxacin 750 Mg Tab) 750 mg PO Q48H [facility] Stop: 10/10/21 09:01 Last Admin: 10/06/21 09:06 Dose: 750 mg Documented by: Multivitamins/Iron (Fe Sulf/Fa/Vit B Comp & C Tab) 1 tab PO DAILY WITH BREAKFAST [facility] Last Admin: 10/06/21 08:05 Dose: 1 tab Documented by: Nutritional Formula (Ensure High Protein 237 Ml Can) 237 ml PO BID PRN PRN Reason: Per patient request Last Admin: 09/28/21 14:50 Dose: 237 ml Documented by: Ondansetron HCl (Ondansetron 4 Mg/2 Ml Vial) 4 mg IV Q6HP PRN PRN Reason: NAUSEA / VOMITING Pantoprazole Sodium (Pantoprazole 40mg Tablet) 40 mg PO DAILY [facility] Last Admin: 10/06/21 09:05 Dose: 40 mg Documented by: Polyethylene Glycol (Polyethyl Gly 3350 17 Gm/Dose) 17 gm PO DAILY PRN PRN Reason: CONSTIPATION Senna (Senosides 8.6 Mg Tab) 17.2 mg PO BID [facility] Last Admin: 10/06/21 09:06 Dose: 17.2 mg Documented by: Sertraline HCl (Sertraline Hcl 50 Mg Tab) 75 mg PO DAILY [facility] Last Admin: 10/06/21 09:06 Dose: 75 mg Documented by: Sodium Chloride (Flush Normal Saline 10 Ml) 10 ml IV BID [facility] Last Admin: 10/06/21 09:00 Dose: 10 ml Documented by: Warfarin Sodium (Warfarin Sodium 2.5 Mg Tab) 2.5 mg PO DAILY 5 PM [facility] Last Admin: 10/06/21 16:26 Dose: 2.5 mg Documented by: Microbiology Results 09/24/21 16:50 Blood - Blood Aerobic Blood Culture - Final No growth in 5 days. 09/24/21 16:50 Blood - Blood Anaerobic Blood Culture - Final 09/24/21 16:50 Blood - Blood Gram Stain - Final 09/24/21 16:30 Blood - Blood Aerobic Blood Culture - Final 09/24/21 16:30 Blood - Blood Blood Culture Gram Stain - Final 09/24/21 16:30 Blood - Blood Anaerobic Blood Culture - Final No growth in 5 days. 09/24/21 17:53 Catheterized Urine [place] Count - Final >100,000 CFU/ML. 09/24/21 17:53 Catheterized Urine - Final Escherichia Coli Enterococcus Faecium Acinetobacter Gianni/Haem Assessment/ Plan: Nephrology Progress Note No dyspnea. FINK No chest pain LE weakness and pain No acute events overnight Vitals, medications blood work and imaging reviewed in the chart General: Oriented x3, Cooperative HEENT: Atraumatic, Mucous membr. moist/pink Neck: Supple, JVD distended Respiratory: Diminished Cardiovascular: Regular rate/rhythm, Edema Gastrointestinal: Soft and benign, Non-distended Musculoskeletal: No clubbing, No contractures Integumentary: No cyanosis, Skin breakdown, Skin lesion Neurological: Normal speech Blood work reviewed in the chart. Imagings Data: EXAM DESCRIPTION: RAD - Chest Single View - 09/24/2021 5:00 pm CLINICAL HISTORY: DYSPNEA COMPARISON: Chest Single View dated 12/13/2019; Chest Single View dated 07/12/2019; Chest Single View dated 01/17/2019; Chest Single View dated 01/16/2019 FINDINGS: Lines: None. Lungs: Diffuse pulmonary opacities bilaterally. Pleural: Layering bilateral pleural effusions. Cardiac: Cardiomegaly. Bones: No acute fractures. Other: IMPRESSION: Findings most consistent with pulmonary edema with bilateral pleural effusions. EXAM DESCRIPTION: CTAbdomen Pelvis W Contrast - 09/24/2021 5:37 pm CLINICAL HISTORY: ABD PAIN COMPARISON: Abdomen Pelvis W Contrast dated 08/21/2016; CT ABD PELVIS W CONTRAST dated 07/08/2014; CT ABD PELVIS W CONTRAST dated 06/25/2014 TECHNIQUE: CT of the abdomen and pelvis was performed. All CT scans are performed using dose optimization technique as appropriate and may include automated exposure control or mA/KV adjustment according to patient size. FINDINGS: Lower chest: Bilateral pleural effusions. Cardiomegaly. Coronary artery calcifications. Dependent atelectasis. Liver: Hepatic steatosis. Mild intrahepatic biliary duct dilatation is likely related to the postcholecystectomy state. Biliary: Cholecystectomy. Extrahepatic biliary ductal dilatation may be related to the postcholecystectomy state. Stomach: Surgical changes along the stomach. Duodenum: No significant focal abnormality. Pancreas: No significant abnormality. Spleen: No significant abnormality. Adrenal: No suspicious lesions. Kidney/ureter: No hydronephrosis. No renal calculi. Retroperitoneum: No retroperitoneal adenopathy. Vascular: IVC filter. Atherosclerosis. No aneurysm. Bowel: No significant focal abnormality. Peritoneum: No ascites or free air. Pronounced abdominal wall laxity. Bladder: Trace bladder gas which is likely due to instrumentation. Reproductive: No adnexal masses. Bones: No acute fracture. Heterotopic ossification adjacent to the left iliac bone is unchanged. Multilevel degenerative changes are present in the spine. Other: n/a IMPRESSION: No acute intra-abdominal or pelvic finding. Bilateral pleural effusions and probably underlying atelectasis which may be secondary to heart failure. Conclusions/Impression: KAYLAH in the setting of diuresis CKD III -No NSAIDs Hyponatremia -Continue Bumex 2mg BID -Continue fluid restriction Hypokalemia -Replete potassium prn -Continue Amiloride 10mg BID Alkalosis in the setting of diuresis -Continue Amiloride 10mg BID -Diamox prn HTN complicated by hypotension -Hold antihypertensives Diastolic CHF, A/C -2g sodium diet -Fluid restriction -Continue Bumex 2mg BID -Continue Amiloride BID DM II with hyperglycemia -RISS Moderate malnutrition -Protein supplementation Anemia in chronic illness Iron deficiency -Give a dose IV iron Atherosclerosis of the aorta Acute cystitis -Continue Levaquin Case reviewed with Dr. Duarte
[2021-10-06] MEDS ORDERED: SOD FERRIC GLUC COMPLX/SUCROSE 250 MG in NA CHLORIDE 0.9% 250 ML IV ONE (19:00)
[2021-10-07 05:43] LABS: Hematocrit 37.6 % (39.6-49.0); MPV 7.2 fL (7.6-11.3); RBC Red Blood Cell Count 3.95 M/uL (4.33-5.43)
[2021-10-07 05:53] LABS: Potassium 3.8 mmol/L (3.5-5.1)
[2021-10-07 06:12] LABS: Protime INR 2.36
[2021-10-07] MEDS ORDERED: POTASSIUM CL SA 10 MEQ TAB PO ONE (09:00)
[2021-10-07] MEDS: BUMETANIDE 1 MG TABLET PO SCH ×2 (09:13→16:39)
[2021-10-07] MEDS: AMILORIDE HCL 5 MG TABLET PO SCH ×2 (09:14→20:01)
[2021-10-07] MEDS: SERTRALINE HCL 50 MG TAB PO SCH (09:14)
[2021-10-07] MEDS: GABAPENTIN 400 MG CAP PO SCH ×2 (09:14→20:01)
[2021-10-07] MEDS: ASCORBIC ACID 500 MG TABLET PO SCH (09:14)
[2021-10-07] MEDS: GABAPENTIN 300 MG CAP PO SCH ×2 (09:15→20:02)
[2021-10-07] MEDS: FE SULF/FA/VIT B COMP & C TAB PO SCH (09:15)
[2021-10-07] MEDS: SENOSIDES 8.6 MG TAB PO SCH ×2 (09:15→20:01)
[2021-10-07] MEDS: PANTOPRAZOLE 40MG TABLET PO SCH (09:15)
[2021-10-07] MEDS: VITAMIN D 5,000 UNIT CAP PO SCH (09:15)
[2021-10-07] MEDS: INSULIN -REGULAR HUMAN 50 UNIT/0.5 ML ML SQ SCH ×4 (09:15→20:02)
[2021-10-07] MEDS: DILTIAZEM HCL 120 MG SR CAP PO SCH ×2 (09:15→20:01)
--- NOTE | 2021-10-07 14:55 | P.PN ---
Subjective Date of Service: 10/07/21 Chief Complaint: CHF exacerbation, UTI Patient significantly diuresed. He has no new complaint. His lower extremities swelling are improving. Physical Examination - Vital Signs Temperature: 97 F Blood Pressure: 105/56 Pulse: 99 Respirations: 20 Pulse Ox (%): 95 Assessment And Plan - Current Problems (Diagnosis) (1) Acute on chronic diastolic heart failure Current Visit: Yes Status: Acute (2) UTI (urinary tract infection) Onset Date: 05/26/16 Current Visit: No Status: Acute Qualifiers: Urinary tract infection type: site unspecified Hematuria presence: with hematuria Qualified Code(s): N39.0 - Urinary tract infection, site not specified; R31.9 - Hematuria, unspecified (3) Chronic a-fib Onset Date: 01/10/19 Current Visit: No Status: Chronic (4) Chronic indwelling Hannah catheter Onset Date: 04/29/18 Current Visit: No Status: Chronic (5) History of pulmonary embolus (PE) Onset Date: 05/26/16 Current Visit: No Status: Chronic (6) Hypertension Onset Date: 04/29/18 Current Visit: No Status: Chronic Qualifiers: Hypertension type: primary hypertension Qualified Code(s): I10 - Essential (primary) hypertension (7) Lymphedema Onset Date: 04/29/18 Current Visit: No Status: Chronic - Plan Physical exam General: In no apparent distress, morbidly obese Respiratory: Clear to auscultation bilaterally, Diminished. Cardiovascular: Normal S1 S2,4+ bilateral lower extremity pitting edema-some improvement, Irregular heart rate/rhythm Gastrointestinal: Soft and benign, No tenderness, Obese abdomen Musculoskeletal: Swelling (Bilateral lower extremities) Integumentary: Erythema (Bilateral legs.), Bilateral lower extremity venostasis dermatitis. Neurological: Bedbound. IV lasix transitioned to oral Bumex. Patient also on amiloride. Nephrology is following. Contraction alkalosis is better. Hyponatremia. Continue fluid restriction. Monitor blood pressure closely. Urine culture: Multiple growth all sensitive to Levaquin. On Levaquin. Continue PT. Monitor renal function. Continue Cardizem for A. fib. Continue Coumadin. Pharmacy is dosing Coumadin and monitor PT/INR daily. Continue gabapentin, and [place] as needed for pain. 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 Per reports, skilled rehab placement is becoming a challenge because of his weight.
[2021-10-07] MEDS ORDERED: WARFARIN SODIUM 2 MG TAB PO SCH (17:00)
--- NOTE | 2021-10-07 18:38 | P.PN ---
Date of Service: 10/07/21 Vital Signs Temp Pulse Resp BP Pulse Ox 97 F 89 20 113/55 L 91 10/07/21 16:00 10/07/21 16:39 10/07/21 16:00 10/07/21 16:39 10/07/21 16:00 Medications Acetaminophen (Acetaminophen 500 Mg Tab) 500 mg PO Q4HP PRN PRN Reason: Pain scale 2-4 (Mild) Last Admin: 09/25/21 10:36 Dose: 500 mg Documented by: Hydrocodone Bitart/Acetaminophen (Hydrocodone/Apap 5/325 Mg Tab) 1 tab PO Q6H PRN PRN Reason: Pain scale 5-7 (Moderate) Last Admin: 10/05/21 20:52 Dose: 1 tab Documented by: Albuterol Sulfate (Albuterol 2.5 Mg/3 Ml Neb Cristal) 2.5 mg NEB [id number] PRN PRN Reason: SHORTNESS OF BREATH Amiloride HCl (Amiloride Hcl 5 Mg Tablet) 10 mg PO BID [facility] Last Admin: 10/07/21 09:14 Dose: 10 mg Documented by: Ascorbic Acid (Ascorbic Acid 500 Mg Tablet) 1,000 mg PO DAILY [facility] Last Admin: 10/07/21 09:14 Dose: 1,000 mg Documented by: Bumetanide (Bumetanide 1 Mg Tablet) 2 mg PO BIDAC [facility] Last Admin: 10/07/21 16:39 Dose: 2 mg Documented by: Cholecalciferol (Vitamin D 5,000 Unit Cap) 5,000 unit PO DAILY [facility] Last Admin: 10/07/21 09:15 Dose: 5,000 unit Documented by: Diltiazem HCl (Diltiazem Hcl 120 Mg Sr Cap) 120 mg PO BID [facility] Last Admin: 10/07/21 09:15 Dose: 120 mg Documented by: Gabapentin (Gabapentin 400 Mg Cap) 400 mg PO BID [facility] Last Admin: 10/07/21 09:14 Dose: 400 mg Documented by: Gabapentin (Gabapentin 300 Mg Cap) 300 mg PO BID [facility] Last Admin: 10/07/21 09:15 Dose: 300 mg Documented by: Insulin Human Regular (Insulin -Regular Human 50 Unit/0.5 Ml Ml) 0 unit SQ [facility]; Protocol Last Admin: 10/07/21 16:39 Dose: 2 unit Documented by: Levofloxacin (Levofloxacin 750 Mg Tab) 750 mg PO Q48H [facility] Stop: 10/10/21 09:01 Last Admin: 10/06/21 09:06 Dose: 750 mg Documented by: Multivitamins/Iron (Fe Sulf/Fa/Vit B Comp & C Tab) 1 tab PO DAILY WITH BREAKFAST [facility] Last Admin: 10/07/21 09:15 Dose: 1 tab Documented by: Nutritional Formula (Ensure High Protein 237 Ml Can) 237 ml PO BID PRN PRN Reason: Per patient request Last Admin: 09/28/21 14:50 Dose: 237 ml Documented by: Ondansetron HCl (Ondansetron 4 Mg/2 Ml Vial) 4 mg IV Q6HP PRN PRN Reason: NAUSEA / VOMITING Pantoprazole Sodium (Pantoprazole 40mg Tablet) 40 mg PO DAILY [facility] Last Admin: 10/07/21 09:15 Dose: 40 mg Documented by: Polyethylene Glycol (Polyethyl Gly 3350 17 Gm/Dose) 17 gm PO DAILY PRN PRN Reason: CONSTIPATION Senna (Senosides 8.6 Mg Tab) 17.2 mg PO BID [facility] Last Admin: 10/07/21 09:15 Dose: 17.2 mg Documented by: Sertraline HCl (Sertraline Hcl 50 Mg Tab) 75 mg PO DAILY [facility] Last Admin: 10/07/21 09:14 Dose: 75 mg Documented by: Sodium Chloride (Flush Normal Saline 10 Ml) 10 ml IV BID [facility] Last Admin: 10/07/21 09:16 Dose: 10 ml Documented by: Warfarin Sodium (Warfarin Sodium 2.5 Mg Tab) 2.5 mg PO MoWeFr@1700 [facility] Warfarin Sodium (Warfarin Sodium 2 Mg Tab) 2 mg PO SuTuThSa@1700 [facility] Last Admin: 10/07/21 16:39 Dose: 2 mg Documented by: Microbiology Results 09/24/21 16:50 Blood - Blood Aerobic Blood Culture - Final No growth in 5 days. 09/24/21 16:50 Blood - Blood Anaerobic Blood Culture - Final 09/24/21 16:50 Blood - Blood Gram Stain - Final 09/24/21 16:30 Blood - Blood Aerobic Blood Culture - Final 09/24/21 16:30 Blood - Blood Blood Culture Gram Stain - Final 09/24/21 16:30 Blood - Blood Anaerobic Blood Culture - Final No growth in 5 days. 09/24/21 17:53 Catheterized Urine [place] Count - Final >100,000 CFU/ML. 09/24/21 17:53 Catheterized Urine - Final Escherichia Coli Enterococcus Faecium Acinetobacter Gianni/Haem Assessment/ Plan: Nephrology Progress Note No dyspnea. FINK No chest pain LE weakness and pain No acute events overnight Vitals, medications blood work and imaging reviewed in the chart General: Oriented x3, Cooperative HEENT: Atraumatic, Mucous membr. moist/pink Neck: Supple, JVD distended Respiratory: Diminished Cardiovascular: Regular rate/rhythm, Edema Gastrointestinal: Soft and benign, Non-distended Musculoskeletal: No clubbing, No contractures Integumentary: No cyanosis, Skin breakdown, Skin lesion Neurological: Normal speech Blood work reviewed in the chart. Imagings Data: EXAM DESCRIPTION: RAD - Chest Single View - 09/24/2021 5:00 pm CLINICAL HISTORY: DYSPNEA COMPARISON: Chest Single View dated 12/13/2019; Chest Single View dated 07/12/2019; Chest Single View dated 01/17/2019; Chest Single View dated 01/16/2019 FINDINGS: Lines: None. Lungs: Diffuse pulmonary opacities bilaterally. Pleural: Layering bilateral pleural effusions. Cardiac: Cardiomegaly. Bones: No acute fractures. Other: IMPRESSION: Findings most consistent with pulmonary edema with bilateral pleural effusions. EXAM DESCRIPTION: CTAbdomen Pelvis W Contrast - 09/24/2021 5:37 pm CLINICAL HISTORY: ABD PAIN COMPARISON: Abdomen Pelvis W Contrast dated 08/21/2016; CT ABD PELVIS W CONTRAST dated 07/08/2014; CT ABD PELVIS W CONTRAST dated 06/25/2014 TECHNIQUE: CT of the abdomen and pelvis was performed. All CT scans are performed using dose optimization technique as appropriate and may include automated exposure control or mA/KV adjustment according to patient size. FINDINGS: Lower chest: Bilateral pleural effusions. Cardiomegaly. Coronary artery calcifications. Dependent atelectasis. Liver: Hepatic steatosis. Mild intrahepatic biliary duct dilatation is likely related to the postcholecystectomy state. Biliary: Cholecystectomy. Extrahepatic biliary ductal dilatation may be related to the postcholecystectomy state. Stomach: Surgical changes along the stomach. Duodenum: No significant focal abnormality. Pancreas: No significant abnormality. Spleen: No significant abnormality. Adrenal: No suspicious lesions. Kidney/ureter: No hydronephrosis. No renal calculi. Retroperitoneum: No retroperitoneal adenopathy. Vascular: IVC filter. Atherosclerosis. No aneurysm. Bowel: No significant focal abnormality. Peritoneum: No ascites or free air. Pronounced abdominal wall laxity. Bladder: Trace bladder gas which is likely due to instrumentation. Reproductive: No adnexal masses. Bones: No acute fracture. Heterotopic ossification adjacent to the left iliac bone is unchanged. Multilevel degenerative changes are present in the spine. Other: n/a IMPRESSION: No acute intra-abdominal or pelvic finding. Bilateral pleural effusions and probably underlying atelectasis which may be secondary to heart failure. Conclusions/Impression: KAYLAH in the setting of diuresis CKD III -No NSAIDs Hyponatremia -Continue Bumex 2mg BID -Continue fluid restriction Hypokalemia -Replete potassium prn -Continue Amiloride 10mg BID Alkalosis in the setting of diuresis -Continue Amiloride 10mg BID -Diamox prn HTN complicated by hypotension -Hold antihypertensives Diastolic CHF, A/C -2g sodium diet -Fluid restriction -Continue Bumex 2mg BID -Continue Amiloride BID DM II with hyperglycemia -RISS Moderate malnutrition -Protein supplementation Anemia in chronic illness Iron deficiency -IV iron prn Atherosclerosis of the aorta Acute cystitis -Continue Levaquin
[2021-10-07] MEDS: HYDROCODONE/APAP 5/325 MG TAB PO PRN (20:01)
[2021-10-08] MEDS: HYDROCODONE/APAP 5/325 MG TAB PO PRN ×2 (05:48→21:24)
[2021-10-08 05:51] LABS: Protime INR 2.5
[2021-10-08 05:58] LABS: Potassium 4.2 mmol/L (3.5-5.1)
[2021-10-08] MEDS: INSULIN -REGULAR HUMAN 50 UNIT/0.5 ML ML SQ SCH ×4 (07:30→21:15)
--- NOTE | 2021-10-08 08:30 | P.PN ---
Date of Service: 10/08/21 Vital Signs Temp Pulse Resp BP Pulse Ox 97.6 F 96 H 17 119/61 96 10/08/21 04:00 10/08/21 04:00 10/08/21 04:00 10/08/21 04:00 10/08/21 04:00 Medications Acetaminophen (Acetaminophen 500 Mg Tab) 500 mg PO Q4HP PRN PRN Reason: Pain scale 2-4 (Mild) Last Admin: 09/25/21 10:36 Dose: 500 mg Documented by: Hydrocodone Bitart/Acetaminophen (Hydrocodone/Apap 5/325 Mg Tab) 1 tab PO Q6H PRN PRN Reason: Pain scale 5-7 (Moderate) Last Admin: 10/08/21 05:48 Dose: 1 tab Documented by: Albuterol Sulfate (Albuterol 2.5 Mg/3 Ml Neb Cristal) 2.5 mg NEB [id number] PRN PRN Reason: SHORTNESS OF BREATH Amiloride HCl (Amiloride Hcl 5 Mg Tablet) 10 mg PO BID [facility] Last Admin: 10/07/21 20:01 Dose: 10 mg Documented by: Ascorbic Acid (Ascorbic Acid 500 Mg Tablet) 1,000 mg PO DAILY [facility] Last Admin: 10/07/21 09:14 Dose: 1,000 mg Documented by: Bumetanide (Bumetanide 1 Mg Tablet) 2 mg PO BIDAC [facility] Last Admin: 10/07/21 16:39 Dose: 2 mg Documented by: Cholecalciferol (Vitamin D 5,000 Unit Cap) 5,000 unit PO DAILY [facility] Last Admin: 10/07/21 09:15 Dose: 5,000 unit Documented by: Diltiazem HCl (Diltiazem Hcl 120 Mg Sr Cap) 120 mg PO BID [facility] Last Admin: 10/07/21 20:01 Dose: 120 mg Documented by: Gabapentin (Gabapentin 400 Mg Cap) 400 mg PO BID [facility] Last Admin: 10/07/21 20:01 Dose: 400 mg Documented by: Gabapentin (Gabapentin 300 Mg Cap) 300 mg PO BID [facility] Last Admin: 10/07/21 20:02 Dose: 300 mg Documented by: Insulin Human Regular (Insulin -Regular Human 50 Unit/0.5 Ml Ml) [address] [facility]; Protocol Last Admin: 10/07/21 20:02 Dose: 4 unit Documented by: Levofloxacin (Levofloxacin 750 Mg Tab) 750 mg PO Q48H [facility] Stop: 10/10/21 09:01 Last Admin: 10/06/21 09:06 Dose: 750 mg Documented by: Multivitamins/Iron (Fe Sulf/Fa/Vit B Comp & C Tab) 1 tab PO DAILY WITH BREAKFAST [facility] Last Admin: 10/07/21 09:15 Dose: 1 tab Documented by: Nutritional Formula (Ensure High Protein 237 Ml Can) 237 ml PO BID PRN PRN Reason: Per patient request Last Admin: 09/28/21 14:50 Dose: 237 ml Documented by: Ondansetron HCl (Ondansetron 4 Mg/2 Ml Vial) 4 mg IV Q6HP PRN PRN Reason: NAUSEA / VOMITING Pantoprazole Sodium (Pantoprazole 40mg Tablet) 40 mg PO DAILY [facility] Last Admin: 10/07/21 09:15 Dose: 40 mg Documented by: Polyethylene Glycol (Polyethyl Gly 3350 17 Gm/Dose) 17 gm PO DAILY PRN PRN Reason: CONSTIPATION Senna (Senosides 8.6 Mg Tab) 17.2 mg PO BID [facility] Last Admin: 10/07/21 20:01 Dose: 17.2 mg Documented by: Sertraline HCl (Sertraline Hcl 50 Mg Tab) 75 mg PO DAILY [facility] Last Admin: 10/07/21 09:14 Dose: 75 mg Documented by: Sodium Chloride (Flush Normal Saline 10 Ml) 10 ml IV BID [facility] Last Admin: 10/07/21 20:02 Dose: 10 ml Documented by: Warfarin Sodium (Warfarin Sodium 2.5 Mg Tab) 2.5 mg PO MoWeFr@1700 [facility] Warfarin Sodium (Warfarin Sodium 2 Mg Tab) 2 mg PO SuTuThSa@1700 [facility] Last Admin: 10/07/21 16:39 Dose: 2 mg Documented by: Microbiology Results 09/24/21 16:50 Blood - Blood Aerobic Blood Culture - Final No growth in 5 days. 09/24/21 16:50 Blood - Blood Anaerobic Blood Culture - Final 09/24/21 16:50 Blood - Blood Gram Stain - Final 09/24/21 16:30 Blood - Blood Aerobic Blood Culture - Final 09/24/21 16:30 Blood - Blood Blood Culture Gram Stain - Final 09/24/21 16:30 Blood - Blood Anaerobic Blood Culture - Final No growth in 5 days. 09/24/21 17:53 Catheterized Urine [place] Count - Final >100,000 CFU/ML. 09/24/21 17:53 Catheterized Urine - Final Escherichia Coli Enterococcus Faecium Acinetobacter Gianni/Haem Assessment/ Plan: Nephrology Progress Note No dyspnea. FINK No chest pain LE weakness and pain No acute events overnight Vitals, medications blood work and imaging reviewed in the chart General: Oriented x3, Cooperative HEENT: Atraumatic, Mucous membr. moist/pink Neck: Supple, JVD distended Respiratory: Diminished Cardiovascular: Regular rate/rhythm, Edema Gastrointestinal: Soft and benign, Non-distended Musculoskeletal: No clubbing, No contractures Integumentary: No cyanosis, Skin breakdown, Skin lesion Neurological: Normal speech Blood work reviewed in the chart. Imagings Data: EXAM DESCRIPTION: RAD - Chest Single View - 09/24/2021 5:00 pm CLINICAL HISTORY: DYSPNEA COMPARISON: Chest Single View dated 12/13/2019; Chest Single View dated 07/12/2019; Chest Single View dated 01/17/2019; Chest Single View dated 01/16/2019 FINDINGS: Lines: None. Lungs: Diffuse pulmonary opacities bilaterally. Pleural: Layering bilateral pleural effusions. Cardiac: Cardiomegaly. Bones: No acute fractures. Other: IMPRESSION: Findings most consistent with pulmonary edema with bilateral pleural effusions. EXAM DESCRIPTION: CTAbdomen Pelvis W Contrast - 09/24/2021 5:37 pm CLINICAL HISTORY: ABD PAIN COMPARISON: Abdomen Pelvis W Contrast dated 08/21/2016; CT ABD PELVIS W CONTRAST dated 07/08/2014; CT ABD PELVIS W CONTRAST dated 06/25/2014 TECHNIQUE: CT of the abdomen and pelvis was performed. All CT scans are performed using dose optimization technique as appropriate and may include automated exposure control or mA/KV adjustment according to patient size. FINDINGS: Lower chest: Bilateral pleural effusions. Cardiomegaly. Coronary artery calcifications. Dependent atelectasis. Liver: Hepatic steatosis. Mild intrahepatic biliary duct dilatation is likely related to the postcholecystectomy state. Biliary: Cholecystectomy. Extrahepatic biliary ductal dilatation may be related to the postcholecystectomy state. Stomach: Surgical changes along the stomach. Duodenum: No significant focal abnormality. Pancreas: No significant abnormality. Spleen: No significant abnormality. Adrenal: No suspicious lesions. Kidney/ureter: No hydronephrosis. No renal calculi. Retroperitoneum: No retroperitoneal adenopathy. Vascular: IVC filter. Atherosclerosis. No aneurysm. Bowel: No significant focal abnormality. Peritoneum: No ascites or free air. Pronounced abdominal wall laxity. Bladder: Trace bladder gas which is likely due to instrumentation. Reproductive: No adnexal masses. Bones: No acute fracture. Heterotopic ossification adjacent to the left iliac bone is unchanged. Multilevel degenerative changes are present in the spine. Other: n/a IMPRESSION: No acute intra-abdominal or pelvic finding. Bilateral pleural effusions and probably underlying atelectasis which may be secondary to heart failure. Conclusions/Impression: KAYLAH in the setting of diuresis CKD III -No NSAIDs Hyponatremia -Continue Bumex 2mg BID -Continue fluid restriction Hypokalemia -Replete potassium prn -Continue Amiloride 10mg BID Alkalosis in the setting of diuresis -Continue Amiloride 10mg BID -Diamox prn HTN complicated by hypotension -Hold antihypertensives Diastolic CHF, A/C -2g sodium diet -Fluid restriction -Continue Bumex 2mg BID -Continue Amiloride BID DM II with hyperglycemia -RISS Moderate malnutrition -Protein supplementation Anemia in chronic illness Iron deficiency -IV iron prn Atherosclerosis of the aorta Acute cystitis -Continue Levaquin
[2021-10-08] MEDS: ASCORBIC ACID 500 MG TABLET PO SCH (10:28)
[2021-10-08] MEDS: AMILORIDE HCL 5 MG TABLET PO SCH ×2 (10:28→21:19)
[2021-10-08] MEDS: BUMETANIDE 1 MG TABLET PO SCH ×2 (10:28→17:22)
[2021-10-08] MEDS: PANTOPRAZOLE 40MG TABLET PO SCH (10:28)
[2021-10-08] MEDS: VITAMIN D 5,000 UNIT CAP PO SCH (10:28)
[2021-10-08] MEDS: SERTRALINE HCL 50 MG TAB PO SCH (10:28)
[2021-10-08] MEDS: GABAPENTIN 400 MG CAP PO SCH ×2 (10:29→21:16)
[2021-10-08] MEDS: SENOSIDES 8.6 MG TAB PO SCH ×2 (10:29→21:15)
[2021-10-08] MEDS: DILTIAZEM HCL 120 MG SR CAP PO SCH ×2 (10:29→21:17)
[2021-10-08] MEDS: GABAPENTIN 300 MG CAP PO SCH ×2 (10:30→21:16)
[2021-10-08] MEDS: levoFLOXacin 750 MG TAB PO SCH (10:30)
[2021-10-08] MEDS: FE SULF/FA/VIT B COMP & C TAB PO SCH (10:30)
--- NOTE | 2021-10-08 16:06 | P.DS ---
Admission Date: 09/24/21 Discharge Date: 10/08/21 Disposition: DC HOME/HOME HEALTH CARE Discharge Condition: FAIR Reason for Admission: CHF exacerbation, UTI - Problems (1) Acute on chronic diastolic heart failure Current Visit: Yes Status: Acute (2) UTI (urinary tract infection) Onset Date: 05/26/16 Current Visit: No Status: Acute Qualifiers: Urinary tract infection type: site unspecified Hematuria presence: with hematuria Qualified Code(s): N39.0 - Urinary tract infection, site not specified; R31.9 - Hematuria, unspecified (3) Chronic a-fib Onset Date: 01/10/19 Current Visit: No Status: Chronic (4) Chronic indwelling Hannah catheter Onset Date: 04/29/18 Current Visit: No Status: Chronic (5) History of pulmonary embolus (PE) Onset Date: 05/26/16 Current Visit: No Status: Chronic (6) Hypertension Onset Date: 04/29/18 Current Visit: No Status: Chronic Qualifiers: Hypertension type: primary hypertension Qualified Code(s): I10 - Essential (primary) hypertension (7) Lymphedema Onset Date: 04/29/18 Current Visit: No Status: Chronic Brief History of Present Illness: is a 81 yo morbidly obese M with CHF, CAD, chronic atrial fibrillation on coumadin, HTN, urinary catheter, chronic lymphedema, 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 His chief complaint is constipation for the past week and abdominal pain, which has now turned to diarrhea. He also reports hallucinations. He reports PND, orthopnea, cough, wheezing, SOB, FINK, lethargy and worsening edema. He presented with sats of 89% on RA. Na 129, Cl 95, BUN 30, Cr 1.31, GFR 53, Glu 195, BNP 1262. CXR IMPRESSION: Findings most consistent with pulmonary edema with bilateral pleural effusions. CTAP IMPRESSION: No acute intra-abdominal or pelvic finding. Bilateral pleural effusions and probably underlying atelectasis which may be secondary to heart failure. Patient admitted for further management. Hospital Course: Patient treated with IV Lasix in consultation with nephrology. Patient diuresed significantly for several days. He had anasarca which significantly improved with treatment. He developed contraction alkalosis which was briefly treated with Diamox. He was also on amiloride for hyponatremia. Patient also placed on 1500 ml fluid restriction. IV lasix transitioned to oral Bumex. Hyponatremia and renal function was stable with diuresis Blood pressure also stable. Held patient's home antihypertensive-losartan and amlodipine. These are discontinued on discharge because patient was normotensive throughout the hospital stay without these antihypertensive. Urine culture: Multiple growth all sensitive to Levaquin. Patient treated several days with Levaquin. Seen by PT. patient wanted to go to acute rehab but was denied. He declined skilled rehab placement. Continued Cardizem for A. fib. Continued Coumadin. Pharmacy help dose Coumadin. INR today is 2.5 Continued gabapentin, and placed on [place] as needed for pain. Patient deemed clinically stable for discharge. He is discharged to home with home health. Vital Signs/Physical Exam: Temp Pulse Resp BP Pulse Ox 98 F 86 18 105/62 96 10/08/21 12:00 10/08/21 12:00 10/08/21 12:00 10/08/21 12:00 10/08/21 12:00 General: Alert, In no apparent distress, Other (Morbidly obese) HEENT: Mucous membr. moist/pink Neck: JVD not distended Respiratory: Clear to auscultation bilaterally, Diminished Cardiovascular: Edema (Bilateral lower extremity significantly improved.), Irregular heart rate/rhythm Gastrointestinal: Soft and benign, Other (Obese abdomen) Integumentary: Other (Bilateral lower extremity venous stasis dermatitis.) Laboratory Data at Discharge: WBC 6.20 K/uL (4.3-10.9) 10/07/21 05:03 Hgb 12.5 g/dL (13.6-17.9) L 10/07/21 05:03 Hct 37.6 % (39.6-49.0) L 10/07/21 05:03 Plt Count 229 K/uL (152-406) 10/07/21 05:03 PT 29.0 SECONDS (9.5-12.5) H 10/08/21 05:25 INR 2.50 10/08/21 05:25 APTT 39.9 SECONDS (24.3-36.9) H 09/24/21 16:30 Sodium 138 mmol/L (136-145) 10/08/21 05:25 Potassium 4.2 mmol/L (3.5-5.1) 10/08/21 05:25 BUN 32 mg/dL (7-18) H 10/08/21 05:25 Creatinine 1.61 mg/dL (0.55-1.3) H 10/08/21 05:25 Glucose 232 mg/dL (74-106) H 10/08/21 05:25 Uric Acid 6.7 mg/dL (3.5-7.2) D 09/26/21 05:39 Phosphorus 3.3 mg/dL (2.5-4.9) 10/06/21 05:17 Magnesium 2.0 mg/dL (1.8-2.4) 10/07/21 05:03 Total Bilirubin 0.3 mg/dL (0.2-1.0) 09/25/21 05:32 AST 27 U/L (15-37) 09/25/21 05:32 ALT 31 U/L (12-78) 09/25/21 05:32 Alkaline Phosphatase 97 U/L (45-117) 09/25/21 05:32 Triglycerides 101 mg/dL (<150) 09/25/21 05:32 Cholesterol 138 mg/dL (<200) 09/25/21 05:32 HDL Cholesterol 38 mg/dL (40-60) L 09/25/21 05:32 Cholesterol/HDL Ratio 3.63 09/25/21 05:32 Lipase 52 U/L (73-393) L 09/24/21 16:30 Home Medications: Ascorbic Acid [Vitamin C] 1 tab PO DAILY 09/25/21 Esomeprazole Magnesium [Nexium 24Hr] 1 tab PO DAILY 09/25/21 Gabapentin 600 mg PO QID 09/25/21 Iron,Carbonyl/Ascorbic Acid [Iron-Vitamin C 100-250 mg Tab] 1 tab PO DAILY 09/25/21 Multivit-Minerals/FA/Lycopene [One Daily Men's Health Tablet] 1 tab PO DAILY 09/25/21 Sertraline HCl 1.5 tab PO DAILY 09/25/21 dilTIAZem HCl [Diltiazem 24Hr ER (Cd)] 1 tab PO BID 09/25/21 glyBURIDE [Glyburide] 1 tab PO DAILY 09/25/21 Amiloride HCl [Midamor*] 10 mg PO BID #60 tablet 10/08/21 Bumetanide [Bumex] 2 mg PO BID #60 tablet 10/08/21 Cholecalciferol (Vitamin D3) [Vitamin D 5,000 IU Cap*] 5,000 unit PO DAILY #30 cap 10/08/21 Polyethyl Gly 3350 [Glycolax*] 17 gm PO DAILY PRN #30 udbot 10/08/21 Senosides [Senokot*] 17.2 mg PO BID #120 tab 10/08/21 Warfarin Sodium [Coumadin*] 2 mg PO SuTuThSa@1700 #30 tab 10/08/21 Warfarin Sodium [Coumadin*] 2.5 mg PO MoWeFr@1700 #30 tab 10/08/21 levoFLOXacin [Levaquin*] 750 mg PO Q48H #1 tab 10/08/21 New Medications: Bumetanide [Bumex] 2 mg PO BID #60 tablet Warfarin Sodium [Coumadin*] 2 mg PO SuTuThSa@1700 #30 tab Warfarin Sodium [Coumadin*] 2.5 mg PO MoWeFr@1700 #30 tab Polyethyl Gly 3350 [Glycolax*] 17 gm PO DAILY PRN #30 udbot PRN Reason: Constipation levoFLOXacin [Levaquin*] 750 mg PO Q48H #1 tab Amiloride HCl [Midamor*] 10 mg PO BID #60 tablet Senosides [Senokot*] 17.2 mg PO BID #120 tab Cholecalciferol (Vitamin D3) [Vitamin D 5,000 IU Cap*] 5,000 unit PO DAILY #30 cap Diet: ADA Activity: Fall precautions Followup: Unknown,U [Primary Care Provider] - 1-2 Weeks Time spent managing pt's care (in minutes): 44
[2021-10-08] MEDS ORDERED: WARFARIN SODIUM 2.5 MG TAB PO SCH (17:00)
[2021-10-09 05:35] VITALS: TEMP 97.8
[2021-10-09 06:14] LABS: Protime INR 2.63
[2021-10-09] MEDS: BUMETANIDE 1 MG TABLET PO SCH (07:30)
[2021-10-09] MEDS: FE SULF/FA/VIT B COMP & C TAB PO SCH (08:00)
[2021-10-09 08:56] VITALS: BP 117/67
[2021-10-09] MEDS: PANTOPRAZOLE 40MG TABLET PO SCH (09:00)
[2021-10-09] MEDS: GABAPENTIN 400 MG CAP PO SCH (09:00)
[2021-10-09] MEDS: AMILORIDE HCL 5 MG TABLET PO SCH (09:00)
[2021-10-09] MEDS: DILTIAZEM HCL 120 MG SR CAP PO SCH (09:00)
[2021-10-09] MEDS: VITAMIN D 5,000 UNIT CAP PO SCH (09:00)
[2021-10-09] MEDS: SENOSIDES 8.6 MG TAB PO SCH (09:00)
[2021-10-09] MEDS: ASCORBIC ACID 500 MG TABLET PO SCH (09:00)
[2021-10-09] MEDS: SERTRALINE HCL 50 MG TAB PO SCH (09:00)
[2021-10-09] MEDS: GABAPENTIN 300 MG CAP PO SCH (09:00)
[2021-10-09] MEDS: INSULIN -REGULAR HUMAN 50 UNIT/0.5 ML ML SQ SCH (11:30)
--- NOTE | 2021-10-09 11:44 | P.PN ---
Subjective Date of Service: 10/08/21 Chief Complaint: CHF exacerbation, UTI Patient has no new complaint. His lower extremities swelling are improving. He is on baseline oxygen. Physical Examination - Vital Signs Temperature: 97.8 F Blood Pressure: 117/67 Pulse: 98 Respirations: 18 Pulse Ox (%): 95 Assessment And Plan - Current Problems (Diagnosis) (1) Acute on chronic diastolic heart failure Current Visit: Yes Status: Acute (2) UTI (urinary tract infection) Onset Date: 05/26/16 Current Visit: No Status: Acute Qualifiers: Urinary tract infection type: site unspecified Hematuria presence: with hematuria Qualified Code(s): N39.0 - Urinary tract infection, site not specified; R31.9 - Hematuria, unspecified (3) Chronic a-fib Onset Date: 01/10/19 Current Visit: No Status: Chronic (4) Chronic indwelling Hannah catheter Onset Date: 04/29/18 Current Visit: No Status: Chronic (5) History of pulmonary embolus (PE) Onset Date: 05/26/16 Current Visit: No Status: Chronic (6) Hypertension Onset Date: 04/29/18 Current Visit: No Status: Chronic Qualifiers: Hypertension type: primary hypertension Qualified Code(s): I10 - Essential (primary) hypertension (7) Lymphedema Onset Date: 04/29/18 Current Visit: No Status: Chronic - Plan Physical exam General: In no apparent distress, morbidly obese Respiratory: Clear to auscultation bilaterally, Diminished. Cardiovascular: Normal S1 S2,4+ bilateral lower extremity pitting edema-some improvement, Irregular heart rate/rhythm Gastrointestinal: Soft and benign, No tenderness, Obese abdomen Musculoskeletal: Swelling (Bilateral lower extremities) Integumentary: Erythema (Bilateral legs.), Bilateral lower extremity venostasis dermatitis. Neurological: Bedbound. Plan: Continue oral Bumex. Patient also on amiloride. Nephrology is following. Contraction alkalosis is better. Hyponatremia resolved. Continue fluid restriction. Monitor blood pressure closely. Urine culture: Multiple growth all sensitive to Levaquin. On Levaquin. Patient to complete at least 7 days of treatment. Continue PT. Renal function is stable. Continue Cardizem for A. fib. Continue Coumadin. Pharmacy is dosing Coumadin and monitor PT/INR daily. Continue gabapentin, and [place] as needed for pain. Patient declined to go to skilled rehab and prefers to go home with home health. He is clinically stable for discharge.
[2021-10-09 13:37] VITALS: O2SAT 97
--- NOTE | 2021-10-09 20:02 | P.PN ---
Date of Service: 10/09/21 Vital Signs Temp Pulse Resp BP Pulse Ox 97.8 F 98 H 18 117/67 95 10/09/21 11:43 10/09/21 11:43 10/09/21 11:43 10/09/21 11:43 10/09/21 11:43 Microbiology Results 09/24/21 16:50 Blood - Blood Aerobic Blood Culture - Final No growth in 5 days. 09/24/21 16:50 Blood - Blood Anaerobic Blood Culture - Final 09/24/21 16:50 Blood - Blood Gram Stain - Final 09/24/21 16:30 Blood - Blood Aerobic Blood Culture - Final 09/24/21 16:30 Blood - Blood Blood Culture Gram Stain - Final 09/24/21 16:30 Blood - Blood Anaerobic Blood Culture - Final No growth in 5 days. 09/24/21 17:53 Catheterized Urine Bison Count - Final >100,000 CFU/ML. 09/24/21 17:53 Catheterized Urine - Final Escherichia Coli Enterococcus Faecium Acinetobacter Gianni/Haem Assessment/ Plan: Nephrology Progress Note No dyspnea. FINK No chest pain LE weakness and pain No acute events overnight Vitals, medications blood work and imaging reviewed in the chart General: Oriented x3, Cooperative HEENT: Atraumatic, Mucous membr. moist/pink Neck: Supple, JVD distended Respiratory: Diminished Cardiovascular: Regular rate/rhythm, Edema Gastrointestinal: Soft and benign, Non-distended Musculoskeletal: No clubbing, No contractures Integumentary: No cyanosis, Skin breakdown, Skin lesion Neurological: Normal speech Blood work reviewed in the chart. Imagings Data: EXAM DESCRIPTION: RAD - Chest Single View - 09/24/2021 5:00 pm CLINICAL HISTORY: DYSPNEA COMPARISON: Chest Single View dated 12/13/2019; Chest Single View dated 07/12/2019; Chest Single View dated 01/17/2019; Chest Single View dated 01/16/2019 FINDINGS: Lines: None. Lungs: Diffuse pulmonary opacities bilaterally. Pleural: Layering bilateral pleural effusions. Cardiac: Cardiomegaly. Bones: No acute fractures. Other: IMPRESSION: Findings most consistent with pulmonary edema with bilateral pleural effusions. EXAM DESCRIPTION: CTAbdomen Pelvis W Contrast - 09/24/2021 5:37 pm CLINICAL HISTORY: ABD PAIN COMPARISON: Abdomen Pelvis W Contrast dated 08/21/2016; CT ABD PELVIS W CONTRAST dated 07/08/2014; CT ABD PELVIS W CONTRAST dated 06/25/2014 TECHNIQUE: CT of the abdomen and pelvis was performed. All CT scans are performed using dose optimization technique as appropriate and may include automated exposure control or mA/KV adjustment according to patient size. FINDINGS: Lower chest: Bilateral pleural effusions. Cardiomegaly. Coronary artery calcifications. Dependent atelectasis. Liver: Hepatic steatosis. Mild intrahepatic biliary duct dilatation is likely related to the postcholecystectomy state. Biliary: Cholecystectomy. Extrahepatic biliary ductal dilatation may be related to the postcholecystectomy state. Stomach: Surgical changes along the stomach. Duodenum: No significant focal abnormality. Pancreas: No significant abnormality. Spleen: No significant abnormality. Adrenal: No suspicious lesions. Kidney/ureter: No hydronephrosis. No renal calculi. Retroperitoneum: No retroperitoneal adenopathy. Vascular: IVC filter. Atherosclerosis. No aneurysm. Bowel: No significant focal abnormality. Peritoneum: No ascites or free air. Pronounced abdominal wall laxity. Bladder: Trace bladder gas which is likely due to instrumentation. Reproductive: No adnexal masses. Bones: No acute fracture. Heterotopic ossification adjacent to the left iliac bone is unchanged. Multilevel degenerative changes are present in the spine. Other: n/a IMPRESSION: No acute intra-abdominal or pelvic finding. Bilateral pleural effusions and probably underlying atelectasis which may be secondary to heart failure. Conclusions/Impression: KAYLAH in the setting of diuresis CKD III -No NSAIDs Hyponatremia -Continue Bumex 2mg BID -Continue fluid restriction Hypokalemia -Replete potassium prn -Continue Amiloride 10mg BID Alkalosis in the setting of diuresis -Continue Amiloride 10mg BID -Diamox prn HTN complicated by hypotension -Hold antihypertensives Diastolic CHF, A/C -2g sodium diet -Fluid restriction -Continue Bumex 2mg BID -Continue Amiloride BID DM II with hyperglycemia -RISS Moderate malnutrition -Protein supplementation Anemia in chronic illness Iron deficiency -IV iron prn Atherosclerosis of the aorta Acute cystitis -Continue Levaquin Case reviewed with Dr. Pope
== END 2021-10-09 12:23 | disposition home health service (06) | DRG 291 ==
LOC: ER 15:50 → ERHOLD 19:23 → 2ND 21:07
PROVIDERS: ADMIT Internal Medicine; ATTEND Internal Medicine
DX: I13.0 Hypertensive heart and chronic kidney disease with heart failure and stage 1 through stage 4 chronic kidney disease, or unspecified chronic kidney disease (principal); I50.33 Acute on chronic diastolic (congestive) heart failure; T83.511A Infection and inflammatory reaction due to indwelling urethral catheter, initial encounter; N39.0 Urinary tract infection, site not specified; N17.9 Acute kidney failure, unspecified; E87.1 Hypo-osmolality and hyponatremia; E87.3 Alkalosis; I48.20 Chronic atrial fibrillation, unspecified; J96.12 Chronic respiratory failure with hypercapnia; E44.0 Moderate protein-calorie malnutrition; Z68.44 Body mass index [BMI] 60.0-69.9, adult; N18.30 Chronic kidney disease, stage 3 unspecified; E11.22 Type 2 diabetes mellitus with diabetic chronic kidney disease; E11.65 Type 2 diabetes mellitus with hyperglycemia; E87.6 Hypokalemia; I89.0 Lymphedema, not elsewhere classified; I25.10 Atherosclerotic heart disease of native coronary artery without angina pectoris; B96.20 Unspecified Escherichia coli [E. coli] as the cause of diseases classified elsewhere; B95.2 Enterococcus as the cause of diseases classified elsewhere; B96.89 Other specified bacterial agents as the cause of diseases classified elsewhere; D50.9 Iron deficiency anemia, unspecified; I87.2 Venous insufficiency (chronic) (peripheral); E66.01 Morbid (severe) obesity due to excess calories; I95.9 Hypotension, unspecified; M13.862 Other specified arthritis, left knee; M13.872 Other specified arthritis, left ankle and foot; S31.114A Laceration without foreign body of abdominal wall, left lower quadrant without penetration into peritoneal cavity, initial encounter; L85.3 Xerosis cutis; R31.9 Hematuria, unspecified; Z74.01 Bed confinement status; Z79.01 Long term (current) use of anticoagulants; Z88.2 Allergy status to sulfonamides; Z86.711 Personal history of pulmonary embolism; Z23 Encounter for immunization; Z20.822 Contact with and (suspected) exposure to COVID-19
CPT/HCPCS: 36415; 71045; 74177; 80048; 80053; 80061; 80069; 80076; 80202; 81003; 81015; 82533; 82607; 82652; 82728; 82746; 82805; 82947; 83036; 83540; 83605; 83690; 83735; 83880; 83935; 83970; 84100; 84132; 84145; 84300; 84439; 84443; 84466; 84484; 84550; 85025; 85027; 85610; 85730; 87040; 87077; 87086; 87088; 87186; 87205; 90471; 90732; 93005; 93306; 93970; 94660; 94760; 96374; 96375; 97110; 97161; 99285; J0696; J1940; J2270; J2916; J3475; J3480; J7050; Q2035; Q9967; U0003

== ENCOUNTER 2021-10-27 09:54 | Emergency (ER) | payer OTHER ==
--- OUTSIDE RECORDS SUMMARY | 2021-10-27 09:59 | XMS REPORT | Continuity of Care Document ---
:1940 Author Organization [facility] t Address [address] [place] [address] Care Team Providers Name Role Phone Parker [...] ics) Center Sulfa DA Active U HIVES 2019-0 [facility] (Sulfona 6-25 [place] mide 00:00: d Antibiot 00 Medical ics) Center CLINDAMY DA Active U 2006- [facility]A - [place] 00:[facility]: d 00 [facility] Center GABAPENT DA Active U 2006- [facility] IN - [place] 00:[facility]: d 00 [facility] No Known DA Active U 2006- [facility] Contrast - [place] Allergie 00:00: d s 00 Medical Center No Known DA Active U 2006-0 [facility] Food - [place] Allergie 00:00: d s 00 Medical Center No Known DA Active U 2006-0 [facility] Other - [place] Allergie 00:00: d s 00 Medical Center PROZAC DA Active U 2006-0 [facility] [place] 00:[facility]: d 00 [facility] Center chlorpro DA Active U 2006- [facility] mazine 04-25 [place] 00:00: d 00 [facility] fluoxeti DA Active U [facility] ne 04-25 [place] 00:00: d 00 [facility] Not DA Active U [facility] Converte 04-25 [facility] 891. 00:00: d See 00 [facility] Medications This patient has no known medications. Procedures This patient has no known procedures. Encounters Start End Encounter Admission Attending Care Care Encounter Source Date/Time Date/Time Type Type Clinicians Facility Department ID 2020-05-16 Inpatient PEPE Singer RADI [id number] [facility] 13:00:00 [place] [id number] [facility] 2021-08-08 2021-08-08 Outpatient ALAMO, [facility] [id number] [place] 00:00:00 00:00:00 [place] 2021-06-20 2021-06-20 Outpatient ALAMO, [facility] [id number] 262 [place] 00:00:00 00:00:00 [place] [address] 2021-02-11 2021-02-11 Outpatient ALAMO, [facility] [id number] [place] 00:00:00 00:00:00 [place] [address] 2020-11-12 2020-11-12 Outpatient ALAMO, [facility] [id number] 636 [place] 00:00:00 00:00:[address] [place] [address] 2020-07-19 2020-07-19 Outpatient ALAMO, [facility] [id number] 529 [place] 00:00:00 00:00:00 [place] [address] 2020-04-08 2020-04-08 Outpatient PEPE Singer RADI LA43 963-20 [facility] 15:04:00 15:04:00 Zhou [id number] [facility] 2020-04-08 2020-04-08 Outpatient PEPE Singer RADI G255 043-20 [facility] 15:04:00 15:04:00 Zhou [id number] [facility] 2020-02-26 2020-02-26 Outpatient ALAMO, [facility] [id number] [place] 00:00:00 00:00:00 [place] [address] 2020-02-07 2020-02-07 Outpatient ALAMO, [facility] [id number] 506 [place] 00:00:00 00:00:00 [address] [facility] Results Test Description Test Time Test Comments Results Result Sourc e Comments - US OTHER DX US 2020-05-16 Name: AMINTA RAJAN PROCEDURE 14:45:00 EN [place] : 1940 Age/S: 79 / M [address] [place] Unit #: [id number] Loc: [place] [address] Phys: Zhou Maguire MD Acct: [id number] Dis Date: Status: REG CLI PHONE #: [phone] Exam Date: 05/16/2020 1400 FAX #: Reason: OSTEOARTHRITIS OF LEFT KNEE EXAMS: CPT: [id number] US OTHER DX US PROCEDURE 56171 PROCEDURE: IMAGE-GUIDED JOINT INJECTION. LOCATION: S17. HISTORY: [...] RAJAN : 1940 Age/S: 79 / M [address] [place] Unit #: [id number] Loc: [place] [address] Phys: Zhou Maguire MD Acct: [id number] Dis Date: Status: REG CLI PHONE #: [phone] Exam Date: 05/16/2020 1400 FAX #: Reason: OSTEOARTHRITIS OF LEFT KNEE EXAMS: CPT: [id number] US OTHER DX US PROCEDURE 36304 <Continued> at 1445 Reported and signed by: Otilio Jimenez M.D. CC: Suzette Alamo MD; Zhou Maguire MD Technologist: Carole Mir Trnscb Date/Time: 05/16/2020 (1445) [email or web address] PAGE 2 Signed Report Name: AMINTA RAJAN [place] : 1940 Age/S: 79 / M [address] [place] Unit #: [id number] Loc: [place] [address] Phys: Zhou Maguire MD Acct: [id number] Dis Date: Status: REG CLI PHONE #: [phone] Exam Date: 05/16/2020 1400 FAX #: Reason: OSTEOARTHRITIS OF LEFT KNEE EXAMS: CPT: [id number] US OTHER DX US PROCEDURE 54807 <Continued> Orig Print D/T: S: 05/16/2020 (6926) Probe: PAGE 3 Signed Report - XR KNEE 3 V LT 2020-04-08 Name: AMINTA RAJAN 16:44:00 [facility] [place] [facility] 1940 Age/S: 79 / M [address] [place] Unit #: [id number] Loc: [place] [address] Phys: Zhou Maguire MD Acct: [id number] Dis Date: Status: DEP CLI PHONE #: [phone] Exam Date: 04/08/2020 1538 FAX #: Reason: osteoarthritis of lt knee joint EXAMS: CPT: [id number] XR KNEE 3 [place] LT [address] Fluoro Time: DAP (Gy m2): Air Kerma [...] PAGE 1 Signed Report Name: AMINTA RAJAN [facility] : 1940 Age/S: 79 / M [address] [place] Unit #: [id number] Loc: [place] [address] Phys: Zhou Maguire MD Acct: [id number] Dis Date: Status: DEP CLI PHONE #: [phone] Exam Date: 04/08/2020 1532 FAX #: Reason: osteoarthritis of lt knee joint EXAMS: CPT: [id number] XR KNEE 3 [place] [address] Fluoro Time: DAP (Gy m2): Air Kerma (mGy): <Continued> Technologist: Matilda Angela, RT(R)(CT); Melissa Oneill RT(R) Trnvtb Date/Time: 04/08/2020 (1643) t.MARIA [email or web address] Orig Print D/T: S: 04/08/2020 (5955) PAGE 2 Signed Report - XR KNEE 3 V LT 2020-04-08 Name: AMINTA RAJAN 16:44:00 EN [facility] : 1940 Age/S: 79 / M [address] [place] Unit #: [id number] Loc: [place] [address] Phys: Zhou Maguire MD Acct: [id number] Dis Date: Status: REG CLI PHONE #: [phone] Exam Date: 04/08/2020 1537 FAX #: Reason: osteoarthritis of lt knee joint EXAMS: CPT: [id number] XR KNEE 3 [place] [address] Fluoro Time: DAP (Gy m2): Air Kerma [...] PAGE 1 Signed Report Name: AMINTA RAJAN [facility] : 1940 Age/S: 79 / M [address] [place] Unit #: [id number] Loc: [place] [address] Phys: Zhou Maguire MD Acct: [id number] Dis Date: Status: REG CLI PHONE #: [phone] Exam Date: 04/08/2020 1536 FAX #: Reason: osteoarthritis of lt knee joint EXAMS: CPT: [id number] XR KNEE 3 [place] LT [address]201 Fluoro Time: DAP (Gy m2): Air Kerma (mGy): <Continued> Technologist: Matilda Angela, RT(R)(CT); Melissa Oneill RT(R) [facility] Date/Time: 04/08/2020 (1643) [email or web address] Orig Print D/T: S: 04/08/2020 (0885) PAGE 2 Signed Report - XR HIP W/PEL UNI 2020-04-08 Name: AMINTA RAJAN 2+V LT 16:41:00 EN [facility] : 1940 Age/S: 79 / M [address] [place] Unit #: [id number] Loc: [place] [address] Phys: Zhou Maguire MD Acct: [id number] Dis Date: Status: DEP CLI PHONE #: [phone] Exam Date: 04/08/2020 1523 FAX #: Reason: unilateral primary osteoarthritis EXAMS: CPT: [id number] XR HIP W/PEL UNI 2+[place] LT [address] Fluoro Time: DAP (Gy m2): Air Kerma (mGy): Site ID: [id number] HISTORY: M 17.12 IMPRESSION: Single relative frog leg AP view of the left hip demonstrates moderately advanced osteoarthritis with fairly prominent hypertrophic acetabular osteophytosis at 1641 Reported and signed by: Angel Dixon M.D. CC: Suzette Alamo MD; Zhou Maguire MD PAGE 1 Signed Report Name: AMINTA RAJAN [facility] : 1940 Age/S: 79 / M [address] [place] Unit #: [id number] Loc: [place] [address] Phys: Zhou Maguire MD Acct: [id number] Dis Date: Status: DEP CLI PHONE #: [phone] Exam Date: 04/08/2020 1523 FAX #: Reason: unilateral primary osteoarthritis EXAMS: CPT: [id number] XR HIP W/PEL UNI 2+[place] [address] Fluoro Time: DAP (Gy m2): Air Kerma (mGy): <Continued> Technologist: Matilda Angela RT(R)(CT); Melissa Oneill RT(R) [facility] Date/Time: 04/08/2020 (1640) t.MARIA [email or web address] Orig Print D/T: S: 04/08/2020 (1643) PAGE 2 Signed Report - XR HIP W/PEL UNI 2020-04-08 Name: AMINTA RAJAN 2+V LT 16:41:00 EN [facility] : 1940 Age/S: 79 / M [address] [place] Unit #: [id number] Loc: [place] [address] Phys: Zhou Maguire MD Acct: [id number] Dis Date: Status: REG CLI PHONE #: [phone] Exam Date: 04/08/2020 1523 FAX #: Reason: unilateral primary osteoarthritis EXAMS: CPT: [id number] XR HIP W/PEL UNI 2+[place] [address] Fluoro Time: DAP (Gy m2): Air Kerma (mGy): Site ID: [id number] HISTORY: M 17.12 IMPRESSION: Single relative frog leg AP view of the left hip demonstrates moderately advanced osteoarthritis with fairly prominent hypertrophic acetabular osteophytosis at 1641 Reported and signed by: Angel Dixon M.D. CC: Suzette Alamo MD; Zhou Maguire MD PAGE 1 Signed Report Name: AMINTA RAJAN [facility] : 1940 Age/S: 79 / M [address] [place] Unit #: [id number] Loc: [place] [address] Phys: Zhou Maguire MD Acct: [id number] Dis Date: Status: REG CLI PHONE #: [phone] Exam Date: 04/08/2020 1523 FAX #: Reason: unilateral primary osteoarthritis EXAMS: CPT: [id number] XR HIP W/PEL UNI 2+[place] [address]272 Fluoro Time: DAP (Gy m2): Air Kerma (mGy): <Continued> Technologist: Matilda Angela, RT(R)(CT); Melissa Oneill, RT(R) Trnscb Date/Time: 04/08/2020 (1640) t.[email or web address] Orig Print D/T: S: 04/08/2020 (1643) PAGE 2 Signed Report - XR FOOT 3+V LT 2020-04-08 Name: AMINTA RAJAN 16:34:00 EN [facility] : 1940 Age/S: 79 / M [address] [place] Unit #: [id number] Loc: [place] [address] Phys: Zhou Maguire MD Acct: [id number] Dis Date: Status: DEP CLI PHONE #: [phone] Exam Date: 04/08/2020 1540 FAX #: Reason: unilateral primary osteoarthritis EXAMS: CPT: [id number] XR FOOT 3+[place] [address] Fluoro Time: DAP (Gy m2): Air Kerma [...] PAGE 1 Signed Report Name: AMINTA RAJAN [facility] : 1940 Age/S: 79 / M [address] [place] Unit #: [id number] Loc: [place] [address] Phys: Zhou Maguire MD Acct: [id number] Dis Date: Status: DEP CLI PHONE #: [phone] Exam Date: 04/08/2020 1540 FAX #: Reason: unilateral primary osteoarthritis EXAMS: CPT: [id number] XR FOOT 3+[place] [address] Fluoro Time: DAP (Gy m2): Air Kerma (mGy): <Continued> Technologist: Matilda Angela, RT(R)(CT); Melissa Oneill RT(R) [facility] Date/Time: 04/08/2020 (1633) [email or web address] Orig Print D/T: S: 04/08/2020 (6856) PAGE 2 Signed Report - XR FOOT 3+V LT 2020-04-08 Name: AMINTA RAJAN 16:34:00 EN [facility] : 1940 Age/S: 79 / M [address] [place] Unit #: [id number] Loc: [place] [address] Phys: Zhou Maguire MD Acct: [id number] Dis Date: Status: REG CLI PHONE #: [phone] Exam Date: 04/08/2020 1540 FAX #: Reason: unilateral primary osteoarthritis EXAMS: CPT: [id number] XR FOOT 3+V LT [address] Fluoro Time: DAP (Gy m2): Air Kerma [...] PAGE 1 Signed Report Name: AMINTA RAJAN [facility] : 1940 Age/S: 79 / M [address] [place] Unit #: [id number] Loc: [place] [address] Phys: Zhou Maguire MD Acct: [id number] Dis Date: Status: REG CLI PHONE #: [phone] Exam Date: 04/08/2020 1540 FAX #: Reason: unilateral primary osteoarthritis EXAMS: CPT: [id number] XR FOOT 3+[place] [address] Fluoro Time: DAP (Gy m2): Air Kerma (mGy): <Continued> Technologist: Matilda Angela, RT(R)(CT); Melissa Oneill RT(R) Trnvtb Date/Time: 04/08/2020 (163) [email or web address] Orig Print D/T: S: 04/08/2020 (9712) PAGE 2 Signed Report - XR ANKLE 3+V LT 2020-04-08 Name: AMINTA RAJAN 16:34:00 EN [facility] : 1940 Age/S: 79 / M [address] [place] Unit #: [id number] Loc: [place] [address] Phys: Zhou Maguire MD Acct: [id number] Dis Date: Status: DEP CLI PHONE #: [phone] Exam Date: 04/08/2020 1540 FAX #: Reason: unilateral primary osteoarthritis EXAMS: CPT: [id number] XR ANKLE 3+[place] [address] Fluoro Time: DAP (Gy m2): Air Kerma [...] MD PAGE 1 Signed Report Name: AMINTA RJAAN [facility] : 1940 Age/S: 79 / M [address] [place] Unit #: [id number] Loc: [place] [address] Phys: Zhou Maguire MD Acct: [id number] Dis Date: Status: DEP CLI PHONE #: [phone] Exam Date: 04/08/2020 1540 FAX #: Reason: unilateral primary osteoarthritis EXAMS: CPT: [id number] XR ANKLE 3+[place] [address] Fluoro Time: DAP (Gy m2): Air Kerma (mGy): <Continued> Technologist: Matilda Angela, RT(R)(CT); Melissa Oneill RT(R) [facility] Date/Time: 04/08/2020 (163) t.MARIA [email or web address] Orig Print D/T: S: 04/08/2020 (3997) PAGE 2 Signed Report - XR ANKLE 3+V LT 2020-04-08 Name: AMINTA RAJAN 16:34:00 EN [facility] : 1940 Age/S: 79 / M [address] [place] Unit #: [id number] Loc: [place] [address] Phys: Zhou Maguire MD Acct: [id number] Dis Date: Status: REG CLI PHONE #: [phone] Exam Date: 04/08/2020 1540 FAX #: Reason: unilateral primary osteoarthritis EXAMS: CPT: [id number] XR ANKLE 3+[place] [address] Fluoro Time: DAP (Gy m2): Air Kerma [...] PAGE 1 Signed Report Name: AMINTA RAJAN [facility] : 1940 Age/S: 79 / M [address] [place] Unit #: [id number] Loc: [place] [address] Phys: Zhou Maguire MD Acct: [id number] Dis Date: Status: REG CLI PHONE #: [phone] Exam Date: 04/08/2020 1540 FAX #: Reason: unilateral primary osteoarthritis EXAMS: CPT: [id number] XR ANKLE 3+V [place] [address] Fluoro Time: DAP (Gy m2): Air Kerma (mGy): <Continued> Technologist: Matilda Angela, RT(R)(CT); Melissa Oneill [facility](R) [facility] Date/Time: 04/08/2020 (163) [email or web address] Orig Print D/T: S: 04/08/2020 (9700) PAGE 2 Signed Report POCT-GLUCOSE METER 2019-01-30 17:08:00 Test Item Value Reference Range Interpretation Comme nts POC-GLUCOSE METER ([employer]) (test 171 mg/dL 70-110 H TESTED AT [facility] [address] code = 1538) [facility] 7703 0 POCT-GLUCOSE [id number] 12:25:00 Test Item Value Reference Range Interpretation Comments POC-GLUCOSE METER 242 mg/dL 70-110 H TESTED AT [facility] 6720 ([employer]) (test code = MELLELIER R [facility] 1538) [address] POCT-GLUCOSE [id number] 09:09:00 Test Item Value Reference Range Interpretation Comments POC-GLUCOSE METER 181 mg/dL 70-110 H TESTED AT [facility] 6720 (BEAKER) (test code = [place] 1538) [address] [id number] 05:31:00 Test Item Value Reference Range Interpretation Comments MAGNESIUM (BEAKER) (test code = 1.7 mg/dL 1.6-2.6 627) BASIC METABOLIC [id number] 05:31:00 Test Item Value Reference Range Interpretation [...] NOT APPLICABLE FOR DIALYSIS PATIEN TS. PROTHROMBIN [id number] 05:25:00 Test Item Value Reference Range Interpretation [...] valves.While on warfarin.CBC W/PLT COUNT & AUTO [id number] 05:13:00 Test Item Value Reference Range Interpretation [...] PERCENT (BEAKER) (test code = 2801) POCT-GLUCOSE [id number] 22:51:00 Test Item Value Reference Range Interpretation Comments POC-GLUCOSE METER 227 mg/dL 70-110 H TESTED AT [facility] 6720 (BEAKER) (test code = [place] 1538) [address] POCT-GLUCOSE [id number] 17:24:00 Test Item Value Reference Range Interpretation Comments POC-GLUCOSE METER 236 mg/dL 70-110 H TESTED AT [place] 2323820 (BEAKER) (test code = NIKO Harp [place] 1538) [address] URINALYSIS W/ [id number] 14:49:00 Test Item Value Reference Range Interpretation [...] 1585) SOURCE(BEAKER) (test code = Urine, Hannah 2237) POCT-GLUCOSE [id number] 13:02:00 Test Item Value Reference Range Interpretation Comments POC-GLUCOSE METER 180 mg/dL 70-110 H TESTED AT [facility] 6720 (BEAKER) (test code = NIKO Har[place] 1538) [address] POCT-GLUCOSE [id number] 09:36:00 Test Item Value Reference Range Interpretation Comments POC-GLUCOSE METER 200 mg/dL 70-110 H TESTED AT [facility] 6720 (BEAKER) (test code = NIKO [place] 1538) [address] PROTHROMBIN [id number] 07:20:00 Test Item Value Reference Range Interpretation Comments PROTIME (BEAKER) (test code = 29.2 seconds 11.7-14.7 H 759) INR (BEAKER) (test code = 370) 2.8 <=5.9 RECOMMENDED COUMADIN/WARFARIN INR THERAPY RANGESSTANDARD DOSE: 2.0 - 3.0 Includes: PROPHYLAXIS forvenous thrombosis, systemic embolization; TREATMENT for venous thrombosis and/or pulmonary embolus.HIGH RISK: Target INR is 2.5-3.5 for patients with mechanical heart valves.While on warfarin.[id number] 07:16:00 Test Item Value Reference Range Interpretation Comments MAGNESIUM (BEAKER) (test code = 1.8 mg/dL 1.6-2.6 627) BASIC METABOLIC [id number] 07:16:00 Test Item Value Reference Range Interpretation [...] PATIEN TS. CBC W/PLT COUNT & AUTO [id number] 07:07:00 Test Item Value Reference Range Interpretation [...] PERCENT (BEAKER) (test code = 2801) POCT-GLUCOSE [id number] 22:06:00 Test Item Value Reference Range Interpretation Comments POC-GLUCOSE METER 222 mg/dL 70-110 H TESTED AT [place] [address] (BEAKER) (test code = [place] 1538) [address] POCT-GLUCOSE [id number] 18:33:00 Test Item Value Reference Range Interpretation Comments POC-GLUCOSE METER 227 mg/dL 70-110 H TESTED AT [place] [address] (BEAKER) (test code = [place] 1538) [address] URINALYSIS W/ REFLEX URINE [id number] 14:23:00 Test Item Value Reference Range Interpretation [...] = 1585) Many SOURCE(BEAKER) (test code = 5457) POCT-GLUCOSE [id number] 12:34:00 Test Item Value Reference Range Interpretation Comments POC-GLUCOSE METER 273 mg/dL 70-110 H TESTED AT [place] [address] (BEAKER) (test code = NIKO Harp [place] 1538) [address] POCT-GLUCOSE [id number] 09:09:00 Test Item Value Reference Range Interpretation Comments POC-GLUCOSE METER 186 mg/dL 70-110 H TESTED AT [facility] 6720 (BEAKER) (test code = NIKO Harp [place] 1538) [address] [id number] 07:43:00 Test Item Value Reference Range Interpretation Comments MAGNESIUM (BEAKER) (test code = 1.6 mg/dL 1.6-2.6 627) BASIC METABOLIC [id number] 07:43:00 Test Item Value Reference Range Interpretation [...] S NOT APPLICABLE FOR DIALYSIS PATIEN TS. [id number] 07:30:00 Test Item Value Reference Range Interpretation Comments PARTIAL THROMBOPLASTIN TIME 95.4 seconds 22.5-36.0 H (BEAKER) (test code = 760) While on warfarin.PROTHROMBIN [id number] 07:28:00 Test Item Value Reference Range Interpretation Comments PROTIME (BEAKER) (test code = 25.1 seconds 11.7-14.7 H 759) INR (BEAKER) (test code = 370) 2.3 <=5.9 RECOMMENDED COUMADIN/WARFARIN INR THERAPY RANGESSTANDARD DOSE: 2.0 - 3.0 Includes: PROPHYLAXIS forvenous thrombosis, systemic embolization; TREATMENT for venous thrombosis and/or pulmonary embolus.HIGH RISK: Target INR is 2.5-3.5 for patients with mechanical heart valves.While on warfarin.[id number] 23:08:00 Test Item Value Reference Range Interpretation Comments PARTIAL THROMBOPLASTIN TIME 66.2 seconds 22.5-36.0 H ([facility]) (test code = 760) POCT-GLUCOSE [id number] 22:14:00 Test Item Value Reference Range Interpretation Comments POC-GLUCOSE METER 224 mg/dL 70-110 H TESTED AT [place] [address] ([facility]) (test code = NIKO Harp [facility] 1538) [address] [id number] 19:24:00 Test Item Value Reference Range Interpretation Comments PARTIAL THROMBOPLASTIN TIME 121.7 seconds 22.5-36.0 H ([facility]) (test code = 760) POCT-GLUCOSE [id number] 17:07:00 Test Item Value Reference Range Interpretation Comments POC-GLUCOSE METER 191 mg/dL 70-110 H TESTED AT [place] [address] ([facility]) (test code = MELLMT Loyd [place] 1538) [address] [id number] 12:57:00 Test Item Value Reference Range Interpretation Comments PARTIAL THROMBOPLASTIN TIME 95.5 seconds 22.5-36.0 H ([facility]) (test code = 760) POCT-GLUCOSE [id number] 12:11:00 Test Item Value Reference Range Interpretation Comments POC-GLUCOSE METER 217 mg/dL 70-110 H TESTED AT [place] [address] ([facility]) (test code = MELLMT Loyd [facility] 1538) [address] POCT-GLUCOSE [id number] 08:51:00 Test Item Value Reference Range Interpretation Comments POC-GLUCOSE METER 185 mg/dL 70-110 H TESTED AT [place] [address] ([facility]) (test code = MELLMT [place] 1538) [address] [id number] 05:36:00 Test Item Value Reference Range Interpretation Comments PARTIAL THROMBOPLASTIN TIME 117.7 seconds 22.5-36.0 H ([facility]) (test code = 760) While on warfarin.[id number] 05:06:00 Test Item Value Reference Range Interpretation Comments MAGNESIUM (BEAKER) (test code = 1.6 mg/dL 1.6-2.6 627) BASIC METABOLIC [id number] 05:06:00 Test Item Value Reference Range Interpretation [...] NOT APPLICABLE FOR DIALYSIS PATIEN TS. PROTHROMBIN [id number] 05:01:00 Test Item Value Reference Range Interpretation [...] METER 200 mg/dL 70-110 H TESTED AT [facility] 6720 ([employer]) (test code = MELLE[place]ER [place] 1538) [address] POCT-GLUCOSE [id number] 17:51:00 Test Item Value Reference Range Interpretation Comments POC-GLUCOSE METER 224 mg/dL 70-110 H TESTED AT [facility] 6720 ([facility]) (test code = NIKO Harp [place] 1538) [address] [id number] 13:34:00 Test Item Value Reference Range Interpretation Comments PARTIAL THROMBOPLASTIN TIME 85.8 seconds 22.5-36.0 H (BEAKER) (test code = 760) POCT-GLUCOSE [id number] 13:26:00 Test Item Value Reference Range Interpretation Comments POC-GLUCOSE METER 208 mg/dL 70-110 H TESTED AT [place] [address] ([facility]) (test code = NIKO Harp [facility] 1538) [address] POCT-GLUCOSE [id number] 09:09:00 Test Item Value Reference Range Interpretation Comments POC-GLUCOSE METER 203 mg/dL 70-110 H TESTED AT [place] [address] ([facility]) (test code = NIKO Harp [facility] 1538) [address] BASIC METABOLIC [id number] 07:09:00 Test Item Value Reference Range Interpretation [...] S NOT APPLICABLE FOR DIALYSIS PATIEN TS. [id number] 07:08:00 Test Item Value Reference Range Interpretation Comments MAGNESIUM (BEAKER) (test code = 1.6 mg/dL 1.6-2.6 627) [id number] 06:31:00 Test Item Value Reference Range Interpretation Comments PARTIAL THROMBOPLASTIN TIME 89.3 seconds 22.5-36.0 H ([facility]) (test code = 760) While on warfarin.PROTHROMBIN [id number] 06:29:00 Test Item Value Reference Range Interpretation Comments PROTIME ([facility]) (test code = 19.8 seconds 11.7-14.7 H 759) INR ([facility]) (test code = 370) 1.7 <=5.9 RECOMMENDED COUMADIN/WARFARIN INR THERAPY RANGESSTANDARD DOSE: 2.0 - 3.0 Includes: PROPHYLAXIS forvenous thrombosis, systemic embolization; TREATMENT for venous thrombosis and/or pulmonary embolus.HIGH RISK: Target INR is 2.5-3.5 for patients with mechanical heart valves.While on warfarin.[id number] 22:50:00 Test Item Value Reference Range Interpretation Comments PARTIAL THROMBOPLASTIN TIME 110.0 seconds 22.5-36.0 H ([facility]) (test code = 760) POCT-GLUCOSE [id number] 22:48:00 Test Item Value Reference Range Interpretation Comments POC-GLUCOSE METER 188 mg/dL 70-110 H TESTED AT [place] [address] ([facility]) (test code = NIKO Harp [facility] 1538) [id number] POCT-GLUCOSE [id number] 17:03:00 Test Item Value Reference Range Interpretation Comments POC-GLUCOSE METER 185 mg/dL 70-110 H TESTED AT [place] [address] ([facility]) (test code = MELLELIER Harp [facility] 1538) [id number] 15:20:00 Test Item Value Reference Range Interpretation Comments PARTIAL THROMBOPLASTIN TIME 64.0 seconds 22.5-36.0 H ([facility]) (test code = 760) POCT-GLUCOSE [id number] 12:48:00 Test Item Value Reference Range Interpretation Comments POC-GLUCOSE METER 269 mg/dL 70-110 H TESTED AT [place] [address] ([facility]) (test code = NIKO Harp [place] 1538) [id number] POCT-GLUCOSE [id number] 09:25:00 Test Item Value Reference Range Interpretation Comments POC-GLUCOSE METER 209 mg/dL 70-110 H TESTED AT [place] [address] ([facility]) (test code = NIKO Harp [place] 1538) [address] [id number] 06:39:00 Test Item Value Reference Range Interpretation Comments PARTIAL THROMBOPLASTIN TIME 102.4 seconds 22.5-36.0 H (BEAKER) (test code = 760) While on warfarin.VITAMIN D, [id number] 05:39:00 Test Item Value Reference Range Interpretation Comments VITAMIN D 25-OH (BEAKER) (test 37.0 ng/mL 6.6-49.9 code = 2764) Effective 09/01/2017: Reference Range ChangeNew: 6.6-49.9 ng/mL Previous: 13.0-47.8 ng/mLRecommended Vitamin D Target Range: 30.0-40.0 ng/mLBASIC METABOLIC [id number] 05:16:00 Test Item Value Reference Range Interpretation [...] S NOT APPLICABLE FOR DIALYSIS PATIEN TS. [id number] 05:11:00 Test Item Value Reference Range Interpretation Comments PHOSPHORUS (BEAKER) (test code = 4.4 mg/dL 2.3-4.7 604) [id number] 05:11:00 Test Item Value Reference Range Interpretation Comments MAGNESIUM (BEAKER) (test code = 1.5 mg/dL 1.6-2.6 L 627) PROTHROMBIN TIME/[id number] 05:05:00 Test Item Value Reference Range Interpretation Comments PROTIME (SHANTI) (test code = 18.6 seconds 11.7-14.7 H [...] METER 196 mg/dL 70-110 H TESTED AT [facility] 67 (SHANTI) (test code = NIKO Harp [facility] 1538) [address] POCT-GLUCOSE [id number] 16:37:00 Test Item Value Reference Range Interpretation Comments POC-GLUCOSE METER 211 mg/dL 70-110 H TESTED AT [place] [address] ([facility]) (test code = NIKO Harp [facility] 1538) [address] RAD, FOOT, 2 VIEWS, [id number] 13:10:00Reason for exam:->painFINAL REPORT TECHNIQUE: Frontal, lateral, [...] tissue swelling of the foot. Signed: Fahad Armentaeport Verified Date/Time: 01/24/2019 13:10:38 Reading Location: [facility] Radiology Reading Room -GLUCOSE [id number] 12:43:00 Test Item Value Reference Range Interpretation Comments POC-GLUCOSE METER 217 mg/dL 70-110 H TESTED AT [facility] 6720 (BEAKER) (test code = [place] 1538) [address] POCT-GLUCOSE [id number] 08:21:00 Test Item Value Reference Range Interpretation Comments POC-GLUCOSE METER 186 mg/dL 70-110 H TESTED AT [facility] 6720 (BEAKER) (test code = [place] 1538) [address] [id number] 05:21:00 Test Item Value Reference Range Interpretation Comments PHOSPHORUS (BEAKER) (test code = 4.5 mg/dL 2.3-4.7 604) [id number] 05:21:00 Test Item Value Reference Range Interpretation Comments MAGNESIUM (BEAKER) (test code = 1.7 mg/dL 1.6-2.6 627) BASIC METABOLIC [id number] 05:21:00 Test Item Value Reference Range Interpretation [...] S NOT APPLICABLE FOR DIALYSIS PATIEN TS. [id number] 05:16:00 Test Item Value Reference Range Interpretation Comments PARTIAL THROMBOPLASTIN TIME 84.7 seconds 22.5-36.0 H (BEAKER) (test code = 760) While on warfarin.PROTHROMBIN TIME/[id number] 05:14:00 Test Item Value Reference Range Interpretation Comments PROTIME ([facility]) (test code = 15.7 seconds 11.7-14.7 H 759) INR ([facility]) (test code = 370) 1.2 <=5.9 RECOMMENDED COUMADIN/WARFARIN INR THERAPY RANGESSTANDARD DOSE: 2.0 - 3.0 Includes: PROPHYLAXIS forvenous thrombosis, systemic embolization; TREATMENT for venous thrombosis and/or pulmonary embolus.HIGH RISK: Target INR is 2.5-3.5 for patients with mechanical heart valves.While on warfarin.POCT-GLUCOSE METER 2019-01-23 21:30:00 Test Item Value Reference Range Interpretation Comments POC-GLUCOSE METER 267 mg/dL 70-110 H TESTED AT [place] [address] ([facility]) (test code = [facility] 1538) [address] POCT-GLUCOSE [id number] 16:28:00 Test Item Value Reference Range Interpretation Comments POC-GLUCOSE METER 184 mg/dL 70-110 H TESTED AT [place] [address] ([facility]) (test code = [facility] 1538) [address] POCT-GLUCOSE [id number] 12:04:00 Test Item Value Reference Range Interpretation Comments POC-GLUCOSE METER 213 mg/dL 70-110 H TESTED AT [place] [address] ([facility]) (test code = [facility] 1538) [address] POCT-GLUCOSE [id number] 08:05:00 Test Item Value Reference Range Interpretation Comments POC-GLUCOSE METER 175 mg/dL 70-110 H TESTED AT [place] [address] ([facility]) (test code = [facility] 1538) [address] BLOOD [id number] 07:01:00 Test Item Value Reference Range Interpretation Comments CULTURE ([facility]) (test No growth in 5 days code = 1095) BLOOD [id number] 07:01:00 Test Item Value Reference Range Interpretation Comments CULTURE ([facility]) (test No growth in 5 days code = 1095) [id number] 05:40:00 Test Item Value Reference Range Interpretation Comments FERRITIN ([facility]) (test code = 361) 508 ng/mL 5-275 H Next blood drawCBC W/PLT COUNT & AUTO [id number] 05:25:00 Test Item Value Reference Range Interpretation [...] PERCENT (BEAKER) (test code = 2801) PROTHROMBIN TIME/[id number] 04:51:00 Test Item Value Reference Range Interpretation [...] S NOT APPLICABLE FOR DIALYSIS PATIEN TS. [id number] 04:48:00 Test Item Value Reference Range Interpretation Comments PHOSPHORUS (BEAKER) (test code = 5.7 mg/dL 2.3-4.7 H 604) [id number] 04:48:00 Test Item Value Reference Range Interpretation Comments MAGNESIUM (BEAKER) (test code = 1.3 mg/dL 1.6-2.6 L 627) [id number] 02:38:00 Test Item Value Reference Range Interpretation Comments PARTIAL THROMBOPLASTIN TIME 72.2 seconds 22.5-36.0 H (AKER) (test code = 760) POCT-GLUCOSE [id number] 23:00:00 Test Item Value Reference Range Interpretation Comments POC-GLUCOSE METER 227 mg/dL 70-110 H TESTED AT [place] [address] ([facility]) (test code = NIKO Harp [facility] 1538) [address] [id number] 21:03:00 Test Item Value Reference Range Interpretation Comments PARTIAL THROMBOPLASTIN TIME 88.9 seconds 22.5-36.0 H (AKER) (test code = 760) POCT-GLUCOSE [id number] 19:37:00 Test Item Value Reference Range Interpretation Comments POC-GLUCOSE METER 187 mg/dL 70-110 H TESTED AT [place] [address] ([facility]) (test code = [facility] 1538) [address] [id number] 16:35:00 Test Item Value Reference Range Interpretation Comments FERRITIN ([facility]) (test code = 361) 404 ng/mL 22-322 H Next blood drawPOCT-GLUCOSE [id number] 11:54:00 Test Item Value Reference Range Interpretation Comments POC-GLUCOSE METER 217 mg/dL 70-110 H TESTED AT [place] [address] ([facility]) (test code = [facility] 1538) [address] [id number] 11:49:00 Test Item Value Reference Range Interpretation Comments PARTIAL THROMBOPLASTIN TIME 65.5 seconds 22.5-36.0 H ([facility]) (test code = 760) POCT-GLUCOSE [id number] 08:15:00 Test Item Value Reference Range Interpretation Comments POC-GLUCOSE METER 183 mg/dL 70-110 H TESTED AT [place] [address] ([facility]) (test code = [facility] 1538) [address] VITAMIN [id number] 05:29:00 Test Item Value Reference Range Interpretation Comments VITAMIN B12 (BEAKER) (test code = 1426 pg/mL 213-816 H 774) Next blood drawNext blood drawBASIC METABOLIC [id number] 04:55:00 Test Item Value Reference Range Interpretation [...] S NOT APPLICABLE FOR DIALYSIS PATIEN TS. [id number] 04:48:00 Test Item Value Reference Range Interpretation Comments PHOSPHORUS (BEAKER) (test code = 4.9 mg/dL 2.3-4.7 H 604) [id number] 04:48:00 Test Item Value Reference Range Interpretation Comments MAGNESIUM (BEAKER) (test code = 1.4 mg/dL 1.6-2.6 L 627) [id number] 04:42:00 Test Item Value Reference Range Interpretation Comments PARTIAL THROMBOPLASTIN TIME 46.5 seconds 22.5-36.0 H (BEAKER) (test code = 760) While on warfarin.PROTHROMBIN TIME/[id number] 04:41:00 Test Item Value Reference Range Interpretation [...] METER 209 mg/dL 70-110 H TESTED AT [place] [address] ([facility]) (test code = NIKO Harp [place] 1538) [address] POCT-GLUCOSE [id number] 18:55:00 Test Item Value Reference Range Interpretation Comments POC-GLUCOSE METER 177 mg/dL 70-110 H TESTED AT [place] [address] ([facility]) (test code = NIKO Harp [facility] 1538) [address] PROTHROMBIN [id number] 15:00:00 Test Item Value Reference Range Interpretation Comments PROTIME ([facility]) (test code = 15.7 seconds 11.7-14.7 H 759) INR ([facility]) (test code = 370) 1.2 <=5.9 RECOMMENDED COUMADIN/WARFARIN INR THERAPY RANGESSTANDARD DOSE: 2.0 - 3.0 Includes: PROPHYLAXIS forvenous thrombosis, systemic embolization; TREATMENT for venous thrombosis and/or pulmonary embolus.HIGH RISK: Target INR is 2.5-3.5 for patients with mechanical heart valves.[id number] 13:32:00 Test Item Value Reference Range Interpretation Comments PARTIAL THROMBOPLASTIN TIME 76.3 seconds 22.5-36.0 H ([facility]) (test code = 760) POCT-GLUCOSE [id number] 12:15:00 Test Item Value Reference Range Interpretation Comments POC-GLUCOSE METER 273 mg/dL 70-110 H TESTED AT [place] [address] ([facility]) (test code = NIKO Harp [facility] 1538) [address] [id number] 11:33:00 Test Item Value Reference Range Interpretation Comments PARTIAL THROMBOPLASTIN TIME > seconds 22.5-36.0 HH ([facility]) (test code = 760) POCT-GLUCOSE [id number] 07:00:00 Test Item Value Reference Range Interpretation Comments POC-GLUCOSE METER 190 mg/dL 70-110 H TESTED AT [place] [address] ([facility]) (test code = [facility] 1538) [address] VITAMIN [id number] 04:08:00 Test Item Value Reference Range Interpretation Comments VITAMIN B12 ([facility]) (test code = 1616 pg/mL 213-816 H 774) Next blood drawNext blood [id number] 04:08:00 Test Item Value Reference Range Interpretation Comments FERRITIN (BEAKER) (test code = 361) 404 ng/mL 5-275 H Next blood drawNext blood drawBASIC METABOLIC [id number] 03:33:00 Test Item Value Reference Range Interpretation [...] S NOT APPLICABLE FOR DIALYSIS PATIEN TS. [id number] 03:30:00 Test Item Value Reference Range Interpretation Comments PHOSPHORUS (BEAKER) (test code = 5.2 mg/dL 2.3-4.7 H 604) [id number] 03:30:00 Test Item Value Reference Range Interpretation Comments MAGNESIUM (BEAKER) (test code = 1.6 mg/dL 1.6-2.6 627) [id number] 03:28:00 Test Item Value Reference Range Interpretation Comments PARTIAL THROMBOPLASTIN TIME 72.8 seconds 22.5-36.0 H (BEAKER) (test code = 760) CBC W/PLT COUNT & AUTO [id number] 03:17:00 Test Item Value Reference Range Interpretation [...] PERCENT (BEAKER) (test code = 2801) POCT-GLUCOSE [id number] 00:35:00 Test Item Value Reference Range Interpretation Comments POC-GLUCOSE METER 195 mg/dL 70-110 H TESTED AT [facility] 6720 (BEAKER) (test code = NIKO [place] 1538) [address] [id number] 20:37:00 Test Item Value Reference Range Interpretation Comments PARTIAL THROMBOPLASTIN TIME 50.2 seconds 22.5-36.0 H (BEAKER) (test code = 760) POCT-GLUCOSE [id number] 18:35:00 Test Item Value Reference Range Interpretation Comments POC-GLUCOSE METER 173 mg/dL 70-110 H TESTED AT [facility] 6720 (BEAKER) (test code = NIKO Harp [facility] 1538) [address] BRONCHIAL CULTURE + GRAM [id number] 15:38:00 Test Item Value Reference Range Interpretation Comments CULTURE (BEAKER) <1+ Normal respiratory (test code = 1095) jeana present GRAM STAIN RESULT No White blood cells (BEAKER) (test code = seen 1123) GRAM STAIN RESULT No organisms seen (BEAKER) (test code = 65395) SPUTUM CULTURE + GRAM [id number] 14:47:00 Test Item Value Reference Range Interpretation Comments CULTURE (BEAKER) (test See comment code = 1095) GRAM STAIN RESULT <1+ WBCs (BEAKER) (test code = 1123) GRAM STAIN RESULT 0-5 epithelial cells (BEAKER) (test code = 846052) GRAM STAIN RESULT No organisms seen (BEAKER) (test code = 685348) <1+ yeast1+ Normal respiratory jeana presentMRSA [id number] 14:46:00 Test Item Value Reference Range Interpretation Comments CULTURE (BEAKER) (test code No MRSA isolated = 1095) SPUTUM CULTURE + GRAM [id number] 14:45:00 Test Item Value Reference Range Interpretation Comments CULTURE (BEAKER) See comment (test code = 1095) GRAM STAIN RESULT 2+ White blood cells (BEAKER) (test code = seen 1123) GRAM STAIN RESULT 0-5 epithelial cells (BEAKER) (test code = 131348) GRAM STAIN RESULT 1+ gram positive cocci (BEAKER) (test code = in pairs 151952) 1+ yeast1+ Normal respiratory jeana [id number] 14:20:00 Test Item Value Reference Range Interpretation Comments PARTIAL THROMBOPLASTIN TIME 57.9 seconds 22.5-36.0 H (BEAKER) (test code = 760) [id number] 12:47:00 Test Item Value Reference Range Interpretation Comments PARTIAL THROMBOPLASTIN TIME > seconds 22.5-36.0 HH (BEAKER) (test code = 760) POCT-GLUCOSE [id number] 12:39:00 Test Item Value Reference Range Interpretation Comments POC-GLUCOSE METER 194 mg/dL 70-110 H TESTED AT [facility] 6720 ([facility]) (test code = [facility] 1538) [address] VITAMIN [id number] 08:56:00 Test Item Value Reference Range Interpretation Comments VITAMIN B12 (BEAKER) (test code = 1677 pg/mL 213-816 H 774) Next blood drawNext blood [id number] 08:56:00 Test Item Value Reference Range Interpretation Comments FERRITIN (BEAKER) (test code = 361) 320 ng/mL 5-275 H Next blood drawNext blood drawPOCT-GLUCOSE [id number] 07:15:00 Test Item Value Reference Range Interpretation Comments POC-GLUCOSE METER 195 mg/dL 70-110 H TESTED AT [place] [address] ([facility]) (test code = [facility] 1538) [address] [id number] 05:51:00 Test Item Value Reference Range Interpretation Comments PARTIAL THROMBOPLASTIN TIME 47.1 seconds 22.5-36.0 H (BEAKER) (test code = 760) BASIC METABOLIC [id number] 05:40:00 Test Item Value Reference Range Interpretation [...] S NOT APPLICABLE FOR DIALYSIS PATIEN TS. [id number] 05:33:00 Test Item Value Reference Range Interpretation Comments MAGNESIUM (BEAKER) (test code = 1.9 mg/dL 1.6-2.6 627) [id number] 05:16:00 Test Item Value Reference Range Interpretation Comments PROCALCITONIN (BEAKER) (test code 0.89 ng/mL <0.05 H = 3036) SEPSIS RISK (ng/mL)Low: 0.05-0.50Intermediate: 0.51-2.00High: >=[id number] 05:10:00 Test Item Value Reference Range Interpretation Comments PARTIAL THROMBOPLASTIN TIME > seconds 22.5-36.0 HH (BEAKER) (test code = 760) [id number] 04:43:00 Test Item Value Reference Range Interpretation Comments PHOSPHORUS (BEAKER) (test code = 6.3 mg/dL 2.3-4.7 H 604) POCT-GLUCOSE [id number] 00:30:00 Test Item Value Reference Range Interpretation Comments POC-GLUCOSE METER 190 mg/dL 70-110 H TESTED AT [facility] 6720 (SHANTI) (test code = NIKO Harp [facility] 1538) [address] [id number] 22:42:00 Test Item Value Reference Range Interpretation Comments PARTIAL THROMBOPLASTIN TIME 30.8 seconds 22.5-36.0 (BEAKER) (test code = 760) [id number] 21:48:00 Test Item Value Reference Range Interpretation Comments PARTIAL THROMBOPLASTIN TIME 32.1 seconds 22.5-36.0 (BEAKER) (test code = 760) [id number] 20:02:00 Test Item Value Reference Range Interpretation Comments PARTIAL THROMBOPLASTIN TIME 154.5 seconds 22.5-36.0 HH (BEAKER) (test code = 760) U/S, RENAL, [id number] 17:24:00Reason for exam:->AKIFINAL REPORT Ultrasound of the [...] MDReport Verified Date/Time: 01/19/2019 17:24:49 Reading Location: [address] Ultrasound Reading Room POCT-GLUCOSE [id number] 16:20:00 Test Item Value Reference Range Interpretation Comments POC-GLUCOSE METER 217 mg/dL 70-110 H TESTED AT [facility] 6720 (BEAKER) (test code = [facility] 1538) [address] BLOOD GAS, [id number] 13:45:00 Test Item Value Reference Range Interpretation [...] 1819) 40.0 % For 30 minutes AFTER [id number] 12:36:00 Test Item Value Reference Range Interpretation Comments PARTIAL THROMBOPLASTIN 102.5 seconds 22.5-36.0 H Spec imen not TIME (BEAKER) (test clotted code = 760) RAD, CHEST, 1 VIEW, NON [id number] 11:12:00Reason for exam:->pnaShould this be performed at [...] Harriseport Verified Date/Time: 01/19/2019 11:12:39 Reading Location: [facility] Radiology Reading Room POCT-GLUCOSE [id number] 06:18:00 Test Item Value Reference Range Interpretation Comments POC-GLUCOSE METER 224 mg/dL 70-110 H TESTED AT [facility] 6720 ([facility]) (test code = NIKO Harp [facility] 1538) [address] [id number] 05:20:00 Test Item Value Reference Range Interpretation Comments PARTIAL THROMBOPLASTIN TIME 28.9 seconds 22.5-36.0 ([facility]) (test code = 760) VITAMIN [id number] 04:57:00 Test Item Value Reference Range Interpretation Comments VITAMIN B12 (BEAKER) (test code = 1685 pg/mL 213-816 H 774) Next blood drawNext blood [id number] 04:57:00 Test Item Value Reference Range Interpretation Comments FERRITIN (BEAKER) (test code = 361) 320 ng/mL 5-275 H Next blood drawNext blood drawBASIC METABOLIC [id number] 04:35:00 Test Item Value Reference Range Interpretation [...] S NOT APPLICABLE FOR DIALYSIS PATIEN TS. [id number] 04:34:00 Test Item Value Reference Range Interpretation Comments PHOSPHORUS (BEAKER) (test code = 5.8 mg/dL 2.3-4.7 H 604) [id number] 04:34:00 Test Item Value Reference Range Interpretation Comments MAGNESIUM (BEAKER) (test code = 1.9 mg/dL 1.6-2.6 627) VANCOMYCIN LEVEL, [id number] 04:27:00 Test Item Value Reference Range Interpretation Comments VANCOMYCIN RANDOM (BEAKER) (test 14.6 ug/mL code = 523) Reference Range: No NormalsCBC W/PLT COUNT & AUTO [id number] 04:25:00 Test Item Value Reference Range Interpretation [...] PERCENT (BEAKER) (test code = 2801) POCT-GLUCOSE [id number] 02:05:00 Test Item Value Reference Range Interpretation Comments POC-GLUCOSE METER 145 mg/dL 70-110 H TESTED AT [facility] 6720 (BEAKER) (test code = NIKO [place] 1538) [address] BODY FLUID CELL COUNT WITH [id number] 18:40:00 Test Item Value Reference Range Interpretation Comments APPEARANCE FLUID (BEAKER) (test Hazy Clear A code = 510) COLOR FLUID (BEAKER) (test code B And E Colorless, Straw A = 511) RBC FLUID [...] EDTA Tube (test code = 2873) POCT-GLUCOSE [id number] 18:12:00 Test Item Value Reference Range Interpretation Comments POC-GLUCOSE METER 195 mg/dL 70-110 H TESTED AT [place] [address] ([facility]) (test code = [place] 1538) [address] VITAMIN D, 36-[id number] 15:12:00 Test Item Value Reference Range Interpretation Comments VITAMIN D 25-OH (BEAKER) (test 31.9 ng/mL 6.6-49.9 code = 2764) Effective 09/01/2017: Reference Range ChangeNew: 6.6-49.9 ng/mL Previous: 13.0-47.8 ng/mLRecommended Vitamin D Target Range: 30.0-40.0 ng/mLPTH, INTACT 2019-01-18 14:57:00 Test Item Value Reference Range Interpretation Comments PARATHYROID HORMONE INTACT 251.9 pg/mL 8.5-72.5 H (BEAKER) (test code = 577) POTASSIUM, RANDOM [id number] 14:55:00 Test Item Value Reference Range Interpretation Comments POTASSIUM URINE (BEAKER) (test 21.6 meq/L code = 195) Reference Range: No NormalsUREA NITROGEN, RANDOM [id number] 14:55:00 Test Item Value Reference Range Interpretation Comments UREA NITROGEN URINE (BEAKER) (test 603 mg/dL code = 538) Reference Range: No NormalsPOCT-GLUCOSE [id number] 12:17:00 Test Item Value Reference Range Interpretation Comments POC-GLUCOSE METER 170 mg/dL 70-110 H TESTED AT [facility] 67 ([facility]) ([facility] = [facility] 1538) [address] [id number] 10:56:00 Test Item Value Reference Range Interpretation Comments PARTIAL THROMBOPLASTIN TIME 35.0 seconds 22.5-36.0 (BEAKER) (test code = 760) Prior to initiating heparinRAD, ABDOMEN/KUB, 1 VIEW [id number] 08:28:00Reason for exam:->OG positioningFINAL REPORT Abdomen date 01/18/2019 Comment: Frontal view of the abdomen demonstrates a nasogastric tube present with tip noted in the body of the stomach. Signed: Keya Harris MDReport Verified Date/Time: 01/18/2019 08:28:12 Reading Location: [facility] Radiology Reading Room POCT-GLUCOSE [id number] 06:12:00 Test Item Value Reference Range Interpretation Comments POC-GLUCOSE METER 161 mg/dL 70-110 H TESTED AT [facility] 6720 (BEAKER) (test code = [place] 1538) [address] VITAMIN [id number] 04:17:00 Test Item Value Reference Range Interpretation Comments VITAMIN B12 (BEAKER) (test code = 1363 pg/mL 213-816 H 774) Next blood drawNext blood drawNext blood [id number] 04:17:00 Test Item Value Reference Range Interpretation [...] = 1585) Many SOURCE(BEAKER) (test code = 1855) IRON, TIBC, % SAT. (WITHOUT FERRITIN)2019-01-18 03:54:00 [...] H (test code = 700) CREATININE, RANDOM [id number] 03:01:00 Test Item Value Reference Range Interpretation Comments CREATININE URINE (BEAKER) (test 82.0 mg/dL code = 375) Reference Range: No NormalsPROTEIN, RANDOM [id number] 03:01:00 Test Item Value Reference Range Interpretation Comments PROTEIN, URINE (BEAKER) (test code = 23 mg/dL 0-14 H 1569) SODIUM, RANDOM [id number] 03:01:00 Test Item Value Reference Range Interpretation Comments SODIUM URINE (BEAKER) (test code = 30 meq/L 243) Reference Range: No [id number] 02:58:00 Test Item Value Reference Range Interpretation Comments PHOSPHORUS (BEAKER) (test code = 5.3 mg/dL 2.3-4.7 H 604) [id number] 02:58:00 Test Item Value Reference Range Interpretation Comments MAGNESIUM (BEAKER) (test code = 1.8 mg/dL 1.6-2.6 627) LACTIC ACID, ARTERIAL, WHOLE [id number] 02:57:00 Test Item Value Reference Range Interpretation Comments LACTATE BLOOD 0.7 mmol/L 0.5-2.2 Specimen sligh tly ARTERIAL (2) (BEAKER) hemoly zed (test code = 2874) PROTHROMBIN [id number] 02:53:00 Test Item Value Reference Range Interpretation Comments PROTIME (BEAKER) (test code = 15.9 seconds 11.7-14.7 H 759) INR (BEAKER) (test code = 370) 1.3 <=5.9 RECOMMENDED COUMADIN/WARFARIN INR THERAPY RANGESSTANDARD DOSE: 2.0 - 3.0 Includes: PROPHYLAXIS forvenous thrombosis, systemic embolization; TREATMENT for venous thrombosis and/or pulmonary embolus.HIGH RISK: Target INR is 2.5-3.5 for patients with mechanical heart valves.[id number] 02:53:00 Test Item Value Reference Range Interpretation Comments PARTIAL THROMBOPLASTIN TIME 35.0 seconds 22.5-36.0 (BEAKER) (test code = 760) CBC W/PLT COUNT & AUTO [id number] 02:47:00 Test Item Value Reference Range Interpretation [...] = 2801) RAD, CHEST, 1 VIEW, NON [id number] 02:39:00Reason for exam:->advanced ET.Should this be performed [...] contours. Additional findings: None. Signed: Lauren Christine MDReport Verified Date/Time: 01/18/2019 02:39:22 Reading Location: [address] Transitional Reading Room BLOOD GAS, [id number] 02:20:00 Test Item Value Reference Range Interpretation [...] 50.0 % RAD, CHEST, 1 VIEW, NON [id number] 02:18:00Post-intubationReason for exam:- >intubated, pneumoniaShould this be [...] MDReport Verified Date/Time: 01/18/2019 02:18:06 Reading Location: [address] Transitional Reading Room
[2021-10-27] MEDS ORDERED: HYDROCODONE/APAP 10/325 TAB ONE (10:25)
--- NOTE | 2021-10-27 10:34 | EDPHYS ---
Physician Documentation [facility] Name: Elbert Miller Age: 81 yrs Sex: Male : 1940 Arrival Date: 10/27/2021 Time: 10:01 Bed 8 Private MD: ED Physician Ross Mckenna HPI: 10/27 10:22 This 81 yrs old Male presents to ER via EMS with complaints of rash. jr8 10:22 The patient presents with pain and swelling to penis. Onset: The symptoms/episode jr8 began/occurred gradually. Modifying factors: The symptoms are alleviated by nothing, the symptoms are aggravated by urinating. Associated signs and symptoms: The patient has no apparent associated signs or symptoms. Severity of symptoms: At their worst the symptoms were moderate, in the emergency department the symptoms are unchanged. It is unknown whether or not the patient has had similar symptoms in the past. The patient has not recently seen a physician. Patient stated that he has had swelling and redness to the glans of his penis. Tried Monistat but not work. . Historical: - Allergies: 10:02 chlorpromazine HCl; ll1 10:02 clopidogrel bisulfate; ll1 10:02 Demerol; ll1 10:02 fluoxetine HCl; ll1 10:02 paroxetine HCl; ll1 10:02 Sulfa (Sulfonamide Antibiotics); ll1 - PMHx: 10:02 Hernia; Herniated disc; neuropathy of right leg; Hypertension; blood clot in lungs; ll1 lymphadema bilateral legs; CHF; Atrial Fib; Arthritis; restless leg syndrome; PE; spinal stenosis; - PSHx: 10:02 Unable to Obtain; ll1 - Immunization history:: Adult Immunizations up to date. - Social history:: Smoking status: Patient denies any tobacco usage or history of. ROS: 10:22 Eyes: Negative for injury, pain, redness, and discharge, ENT: Negative for injury, jr8 pain, and discharge, Neck: Negative for injury, pain, and swelling, Cardiovascular: Negative for chest pain, palpitations, and edema, Respiratory: Negative for shortness of breath, cough, wheezing, and pleuritic chest pain, Abdomen/GI: Negative for abdominal pain, nausea, vomiting, diarrhea, and constipation, Back: Negative for injury and pain, MS/Extremity: Negative for injury and deformity, Skin: Negative for injury, rash, and discoloration, Neuro: Negative for headache, weakness, numbness, tingling, and seizure. 10:22 : Positive for penile pain. Exam: 10:22 Constitutional: This is a well developed, well nourished patient who is awake, alert, jr8 and in no acute distress. Cardiovascular: Regular rate and rhythm with a normal S1 and S2. No gallops, murmurs, or rubs. Normal PMI, no JVD. No pulse deficits. Respiratory: Lungs have equal breath sounds bilaterally, clear to auscultation and percussion. No rales, rhonchi or wheezes noted. No increased work of breathing, no retractions or nasal flaring. Abdomen/GI: Soft, non-tender, with normal bowel sounds. No distension or tympany. No guarding or rebound. No evidence of tenderness throughout. Skin: Warm, dry with normal turgor. Normal color with no rashes, no lesions, and no evidence of cellulitis. MS/ Extremity: Pulses equal, no cyanosis. Neurovascular intact. Full, normal range of motion. Neuro: Awake and alert, GCS 15, oriented to person, place, time, and situation. Motor strength 5/5 in all extremities. Sensory grossly intact. 10:22 : Male external genitalia: Patient has maceration and erythema noted to the glans of the penis. Mild swelling around the foreskin. No cellulitis noted to the shaft of penis, scrotal region, or perineal region., a sims is noted. Vital Signs: 10:08 BP 134 / 77; Pulse 102; Resp 17; Temp 97.6(O); Pulse Ox 97% on R/A; Weight 192.78 kg; ll1 Height 5 ft. 10 in. (177.80 cm); Pain 10/10; 11:23 BP 118 / 90; Pulse 85; Resp 17; Pulse Ox 95% ; ll1 10:08 Body Mass Index 60.98 (192.78 kg, 177.80 cm) ll1 MDM: 10:07 Patient medically screened. jr8 10:22 Data reviewed: vital signs, nurses notes, and as a result, I will discharge patient. jr8 Data interpreted: Pulse oximetry: on room air is 97 %. Interpretation: normal. Counseling: I had a detailed discussion with the patient and/or guardian regarding: the historical points, exam findings, and any diagnostic results supporting the discharge/admit diagnosis, the need for outpatient follow up, a urologist, to return to the emergency department if symptoms worsen or persist or if there are any questions or concerns that arise at home. ED course: Detailed discussion with patient that he needs to clean region 3 times a day and dry well. Needs to apply nystatin powder around all creases and then apply antifungal ointment to the glans of his penis. If you were to worsen at any point time to come back for further evaluation otherwise needs to follow-up with his PCP and urology.. Administered Medications: 10:33 Drug: [place] (HYDROcodone-acetaminophen) 10 mg-325 mg 1 tabs Route: PO; ll1 11:39 Follow up: Response: No adverse reaction ll1 Disposition: 10/28 06:54 Co-signature as Attending Physician, Ross Mckenna MD I agree with the assessment and deborah plan of care. Disposition Summary: 10/27/21 10:33 Discharge [facility] Problem: new jr8 Symptoms: have improved jr8 Condition: Stable jr8 Diagnosis - Candidal balanitis jr8 Followup: jr8 - With: Private Physician - When: 5 - 6 days - Reason: Recheck today's complaints, Continuance of care, Re-evaluation by your physician Discharge Instructions: - Discharge Summary Sheet jr8 - Balanitis jr8 Forms: - Medication Reconciliation Form jr8 - Thank You Letter jr8 - Antibiotic Education jr8 - Prescription Opioid Use jr8 Prescriptions: - Nystatin-Triamcinolone 100,000-0.1 unit/gram-% Topical Ointment - apply 1 application by TOPICAL route 2 times per day; 1 tube; Refills: 0, jr8 Product Selection Permitted - Tylenol-Codeine #3 300 mg-30 mg Oral - take 1 tablet by ORAL route every 8 hours As needed; 12 tablet; Refills: 0, jr8 Product Selection Permitted Signatures: Ross Mckenna MD MD cha Roszak, Josh, PA PA 8 Octavia Yun RN RN ll1 Corrections: (The following items were deleted from the chart) 10/27 10:40 10:22 : Male external genitalia: Patient has maceration and erythema noted to the jr8 glans of the penis. Mild swelling around the foreskin. No cellulitis noted to the shaft of penis or to the scrotal region., a levi is noted, jr8
--- NOTE | 2021-10-27 10:34 | ER ---
Nurse's Notes [facility] [place] [place] [facility] Name: Elbert Miller Age: 81 yrs Sex: Male : 1940 Arrival Date: 10/27/2021 Time: 10:01 Bed 8 Private MD: Diagnosis: Candidal balanitis Presentation: 10/27 10:01 Chief complaint: Patient states: Scrotal and penile swelling with yellow discharge for ll1 past 2 weeks after getting his Hannah replaced. Coronavirus screen: Client denies travel out of the [place] in the last 14 days. At this time, the client does not indicate any symptoms associated with coronavirus-19. Ebola Screen: Patient denies travel to an Ebola-affected area in the 21 days before illness onset. Initial Sepsis Screen: Does the patient meet any 2 criteria? No. Patient's initial sepsis screen is negative. Does the patient have a suspected source of infection? Yes: Skin breakdown/wound. Risk Assessment: Do you want to hurt yourself or someone else? Patient reports no desire to harm self or others. Onset of symptoms was October 13, 2021. 10:01 Method Of Arrival: EMS ll1 10:01 Acuity: [place] 3 ll1 Triage Assessment: 10:21 General: Appears uncomfortable, Behavior is calm, cooperative, appropriate for age. ll1 Pain: Complains of pain in penis Pain currently is 10 out of 10 on a pain scale. Quality of pain is described as burning, aching, Aggravated by increased activity. Neuro: No deficits noted. Cardiovascular: No deficits noted. Respiratory: No deficits noted. : red, raw skin to penis and under foreskin. Derm: redness, erythema penis. Historical: - Allergies: 10:02 chlorpromazine HCl; ll1 10:02 clopidogrel bisulfate; ll1 10:02 Demerol; ll1 10:02 fluoxetine HCl; ll1 10:02 paroxetine HCl; ll1 10:02 Sulfa (Sulfonamide Antibiotics); ll1 - PMHx: 10:02 Hernia; Herniated disc; neuropathy of right leg; Hypertension; blood clot in lungs; ll1 lymphadema bilateral legs; CHF; Atrial Fib; Arthritis; restless leg syndrome; PE; spinal stenosis; - PSHx: 10:02 Unable to Obtain; ll1 - Immunization history:: Adult Immunizations up to date. - Social history:: Smoking status: Patient denies any tobacco usage or history of. Screenin:22 Abuse screen: Denies threats or abuse. Nutritional screening: No deficits noted. ll1 Tuberculosis screening: No symptoms or risk factors identified. 11:38 Fall Risk IV access (20 points). Ambulatory Aid- Gait- Normal/Bed Rest/Wheelchair (0 ll1 pts) Total Lincoln Fall Scale indicates No Risk (0-24 pts). Assessment: 11:20 Reassessment: No changes from previously documented assessment. Patient and/or family ll1 updated on plan of care and expected duration. Pain level reassessed. Patient is alert, oriented x 3, equal unlabored respirations, skin warm/dry/pink. 11:39 Reassessment: No changes from previously documented assessment. Patient and/or family ll1 updated on plan of care and expected duration. Pain level reassessed. Patient is alert, oriented x 3, equal unlabored respirations, skin warm/dry/pink. Vital Signs: 10:08 BP 134 / 77; Pulse 102; Resp 17; Temp 97.6(O); Pulse Ox 97% on R/A; Weight 192.78 kg; ll1 Height 5 ft. 10 in. (177.80 cm); Pain 10/10; 11:23 BP 118 / 90; Pulse 85; Resp 17; Pulse Ox 95% ; ll1 10:08 Body Mass Index 60.98 (192.78 kg, 177.80 cm) ll1 ED Course: 10:01 Patient arrived in ED. iw 10:01 Arm band placed on Patient placed in an exam room, on a stretcher. ll1 10:02 Triage completed. ll1 10:07 Andi Estrella PA is PHCP. jr8 10:07 Ross Mckenna MD is Attending Physician. jr8 10:08 Octavia Yun RN is Primary Nurse. ll1 10:22 Patient has correct armband on for positive identification. Bed in low position. Call ll1 light in reach. Side rails up X2. Cardiac monitoring not applicable on this patient. 11:38 No provider procedures requiring assistance completed. Patient did not have IV access ll1 during this emergency room visit. Administered Medications: 10:33 Drug: [place] (HYDROcodone-acetaminophen) 10 mg-325 mg 1 tabs Route: PO; ll1 11:39 Follow up: Response: No adverse reaction 1 Outcome: 10:33 Discharge ordered by . dedra 11:38 Discharged to home via ambulance. 1 11:38 Condition: stable 11:38 Discharge instructions given to patient, Instructed on discharge instructions, follow up and referral plans. medication usage, wound care, Demonstrated understanding of instructions, follow-up care, medications, wound care, Prescriptions given X 3. 11:39 Patient left the ED. 1 Signatures: Kelly Nathan RN Andi Wilkinson PA PA 8 Octavia Yun RN RN [facility]
[2021-10-27 11:46] VITALS: TEMP 97.6
[2021-10-27 11:47] VITALS: BP 118/90; O2SAT 95
== END 2021-10-27 11:39 | disposition home or self-care (01) ==
LOC: ER 09:54
DX: B37.42 Candidal balanitis (principal); I10 Essential (primary) hypertension; Z88.2 Allergy status to sulfonamides; Z88.5 Allergy status to narcotic agent; Z88.8 Allergy status to other drugs, medicaments and biological substances
CPT/HCPCS: 99283

== ENCOUNTER 2021-10-29 10:14 | Inpatient (IN) | payer OTHER ==
--- OUTSIDE RECORDS SUMMARY | 2021-10-29 10:20 | XMS REPORT | Continuity of Care Document ---
:1940 Author Organization [facility] t Address [address] [place] [address] Care Team Providers Name Role Phone Parker [...] Sulfa DA Active U 2019-0 [facility] (Sulfona 6-25 [place] mide 00:00: [...] Known DA Active U 2006-0 [facility] Contrast - [place] Allergie 00:00: d [...] [facility] mazine 04-25 [place] 00:00: d 00 [facility] fluoxeti DA Active U [facility] ne 04-25 [place] 00:00: d 00 [facility] Not DA Active U [facility] Converte 04-25 [facility] 891. 00:00: d See 00 [facility] Medications This patient has no known medications. Procedures This patient has no known procedures. Encounters Start End Encounter Admission Attending Care Care Encounter Source Date/Time Date/Time Type Type Clinicians Facility Department ID 2020-05-16 Inpatient PEPE Singer RADI [id number] [facility] 13:00:00 Clark [id number] [facility] 2021-08-08 2021-08-08 Outpatient ALAMO, [facility] [id number] [place] 00:00:00 00:00:00 [address] 2021-06-20 2021-06-20 Outpatient ALAMO, [facility] [id number] [address] [place] 00:00:00 00:00:00 [address] 2021-02-11 2021-02-11 Outpatient ALAMO, [facility] [id number] [address] [place] 00:00:00 00:00:00 [place] 2020-11-12 2020-11-12 Outpatient ALAMO, [facility] [id number] [address] [place] 00:00:00 00:00:00 [address] 2020-07-19 2020-07-19 Outpatient ALAMO, [facility] [id number] [address] [place] 00:00:00 00:00:00 [address] 2020-04-08 2020-04-08 Outpatient PEPE Singer RADI [id number] [facility] 15:04:00 15:04:00 Zhou [id number] [facility] 2020-04-08 2020-04-08 Outpatient PEPE Singer RADI G255 [id number] [facility] 15:04:00 15:04:00 Zhou [id number] [facility] 2020-02-26 2020-02-26 Outpatient ALAMO, [facility] [id number] [address] [place] 00:00:00 00:00:00 [address] 2020-02-07 2020-02-07 Outpatient ALAMO, [facility] [id number] [address] [place] 00:00:00 00:00:[address] Results Test Description Test Time Test Comments Results Result Sourc e Comments - US OTHER DX US 2020-05-16 Name: AMINTA RAJAN PROCEDURE 14:45:00 EN [place] : 1940 Age/S: 79 / M [address] Unit #: [id number] Loc: [place] [address] Phys: Zhou Maguire MD Acct: [id number] Dis Date: Status: REG CLI PHONE #: [phone] Exam Date: 05/16/2020 1400 FAX #: Reason: OSTEOARTHRITIS OF LEFT KNEE EXAMS: CPT: [id number] US OTHER DX US PROCEDURE 57382 PROCEDURE: IMAGE-GUIDED JOINT INJECTION. LOCATION: S17. HISTORY: [...] RAJAN : 1940 Age/S: 79 / M [address] Unit #: [id number] Loc: [place] [address] Phys: Zhou aMguire MD Acct: [id number] Dis Date: Status: REG CLI PHONE #: [phone] Exam Date: 05/16/2020 1400 FAX #: Reason: OSTEOARTHRITIS OF LEFT KNEE EXAMS: CPT: [id number] US OTHER DX US PROCEDURE 82162 <Continued> at 1445 Reported and signed by: Otilio Jimenez M.D. CC: Suzette Alamo MD; Zhou Maguire MD Technologist: Carole Mir Trnscb Date/Time: 05/16/2020 (1445) [email or web address] PAGE 2 Signed Report Name: AMINTA RAJAN [place] : 1940 Age/S: 79 / M [address] Unit #: [id number] Loc: [place] [address] Phys: Zhou Maguire MD Acct: [id number] Dis Date: Status: REG CLI PHONE #: [phone] Exam Date: 05/16/2020 1400 FAX #: Reason: OSTEOARTHRITIS OF LEFT KNEE EXAMS: CPT: [id number] US OTHER DX US PROCEDURE 32984 <Continued> Orig Print D/T: S: 05/16/2020 (6947) Probe: PAGE 3 Signed Report - XR KNEE 3 V LT 2020-04-08 Name: AMINTA RAJAN 16:44:00 [facility] [place] [facility] 1940 Age/S: 79 / M [address] Unit #: [id number] Loc: [place] [address] Phys: Zhou Maguire MD Acct: [id number] Dis Date: Status: REG CLI PHONE #: [phone] Exam Date: 04/08/2020 1538 FAX #: Reason: osteoarthritis of lt knee joint EXAMS: CPT: [id number] XR KN[place] 3 [place] [address] Fluoro Time: DAP (Gy m2): Air Kerma [...] PAGE 1 Signed Report Name: AMINTA RAJAN [facility] : 1940 Age/S: 79 / M [address] Unit #: [id number] Loc: [place] [address] Phys: Zhou Maguire MD Acct: [id number] Dis Date: Status: REG CLI PHONE #: [phone] Exam Date: 04/08/2020 1530 FAX #: Reason: osteoarthritis of lt knee joint EXAMS: CPT: [id number] XR KN[place] [address] Fluoro Time: DAP (Gy m2): Air Kerma (mGy): <Continued> Technologist: Matilda Angela, RT(R)(CT); Melissa Oneill RT(R) Trntnb Date/Time: 04/08/2020 (1643) t.MARIA [email or web address] Orig Print D/T: S: 04/08/2020 (9855) PAGE 2 Signed Report - XR KNEE 3 V LT 2020-04-08 Name: AMINTA RAJAN 16:44:00 NE [facility] : 1940 Age/S: 79 / M [address] Unit #: [id number] Loc: [place] [address] Phys: Zhou Maguire MD Acct: [id number] Dis Date: Status: DEP CLI PHONE #: [phone] Exam Date: 04/08/2020 1531 FAX #: Reason: osteoarthritis of lt knee joint EXAMS: CPT: [id number] XR KNEE 3 [place] [address] Fluoro Time: DAP (Gy m2): Air Kerma [...] PAGE 1 Signed Report Name: AMINTA RAJAN [facility] : 1940 Age/S: 79 / M [address] Unit #: [id number] Loc: [place] [address] Phys: Zhou Maguire MD Acct: [id number] Dis Date: Status: DEP CLI PHONE #: [phone] Exam Date: 04/08/2020 153 FAX #: Reason: osteoarthritis of lt knee joint EXAMS: CPT: [id number] XR KNEE 3 [place] [address] Fluoro Time: DAP (Gy m2): Air Kerma (mGy): <Continued> Technologist: Matilda Angela, RT(R)(CT); Melissa Oneill RT(R) [facility] Date/Time: 04/08/2020 (1643) [email or web address] Orig Print D/T: S: 04/08/2020 (8498) PAGE 2 Signed Report - XR HIP W/PEL UNI 2020-04-08 Name: AMINTA RAJAN 2+V LT 16:41:00 EN [facility] : 1940 Age/S: 79 / M [address] Unit #: [id number] Loc: [place] [address] Phys: Zhou Maguire MD Acct: [id number] Dis Date: Status: REG CLI PHONE #: [phone] Exam Date: 04/08/2020 1523 FAX #: Reason: unilateral primary osteoarthritis EXAMS: CPT: [id number] XR HIP W/PEL UNI 2+[place] [address] Fluoro Time: DAP (Gy m2): Air Kerma (mGy): Site ID: [id number] HISTORY: M 17.12 IMPRESSION: Single relative frog leg AP view of the left hip demonstrates moderately advanced osteoarthritis with fairly prominent hypertrophic acetabular osteophytosis at 1641 Reported and signed by: Angel Dixon M.D. CC: Suzette Alamo MD; Zhou Maguire MD PAGE 1 Signed Report Name: AMINTA RAJAN [facility] : 1940 Age/S: 79 / M [address] Unit #: [id number] Loc: [place] [address] Phys: Zhou Maguire MD Acct: [id number] Dis Date: Status: REG CLI PHONE #: [phone] Exam Date: 04/08/2020 1523 FAX #: Reason: unilateral primary osteoarthritis EXAMS: CPT: [id number] XR HIP W/PEL UNI 2+[place] [address] Fluoro Time: DAP (Gy m2): Air Kerma (mGy): <Continued> Technologist: Matilda Angela RT(R)(CT); Melissa Oneill RT(R) [facility] Date/Time: 04/08/2020 (1640) t.MARIA [email or web address] Orig Print D/T: S: 04/08/2020 (1643) PAGE 2 Signed Report - XR HIP W/PEL UNI 2020-04-08 Name: AMINTA RAJAN 2+V LT 16:41:00 EN [facility] : 1940 Age/S: 79 / M [address] Unit #: [id number] Loc: [place] [address] Phys: Zhou Maguire MD Acct: [id number] Dis Date: Status: DEP CLI PHONE #: [phone] Exam Date: 04/08/2020 1523 FAX #: Reason: unilateral primary osteoarthritis EXAMS: CPT: [id number] XR HIP W/PEL UNI 2+[place] [address] Fluoro Time: DAP (Gy m2): Air Kerma (mGy): Site ID: [id number] HISTORY: M 17.12 IMPRESSION: Single relative frog leg AP view of the left hip demonstrates moderately advanced osteoarthritis with fairly prominent hypertrophic acetabular osteophytosis at 1641 Reported and signed by: Angel Dixon M.D. CC: Suzette Alamo MD; Zhou Maguire MD PAGE 1 Signed Report Name: AMINTA RAJAN [facility] : 1940 Age/S: 79 / M [address] Unit #: [id number] Loc: [place] [address] Phys: Zhou Maguire MD Acct: [id number] Dis Date: Status: DEP CLI PHONE #: [phone] Exam Date: 04/08/2020 1523 FAX #: Reason: unilateral primary osteoarthritis EXAMS: CPT: [id number] XR HIP W/PEL UNI 2+[place] [address] Fluoro Time: DAP (Gy m2): Air Kerma (mGy): <Continued> Technologist: Matilda Angela, RT(R)(CT); Melissa Oneill, RT(R) Trnscb Date/Time: 04/08/2020 (1640) t.[email or web address] Orig Print D/T: S: 04/08/2020 (1643) PAGE 2 Signed Report - XR FOOT 3+V LT 2020-04-08 Name: AMINTA RAJAN 16:34:00 EN [facility] : 1940 Age/S: 79 / M [address] Unit #: [id number] Loc: [place] [address] Phys: Zhou Maguire MD Acct: [id number] Dis Date: Status: REG CLI PHONE #: [phone] Exam Date: 04/08/2020 1540 FAX #: Reason: unilateral primary osteoarthritis EXAMS: CPT: [id number] XR FOOT 3+[place] [address] Fluoro Time: DAP (Gy m2): Air Kerma [...] PAGE 1 Signed Report Name: AMINTA RAJAN [facility] : 1940 Age/S: 79 / M [address] Unit #: [id number] Loc: [place] [address] Phys: Zhou Maguire MD Acct: [id number] Dis Date: Status: REG CLI PHONE #: [phone] Exam Date: 04/08/2020 1540 FAX #: Reason: unilateral primary osteoarthritis EXAMS: CPT: [id number] XR FOOT 3+[place] [address] Fluoro Time: DAP (Gy m2): Air Kerma (mGy): <Continued> Technologist: Matilda Angela, RT(R)(CT); Melissa Oneill RT(R) [facility] Date/Time: 04/08/2020 (1633) t.[email or web address].JP19 Orig Print D/T: S: 04/08/2020 (2506) PAGE 2 Signed Report - XR FOOT 3+V LT 2020-04-08 Name: AMINTA RAJAN 16:34:00 EN [facility] : 1940 Age/S: 79 / M [address] Unit #: [id number] Loc: [place] [address] Phys: Zhou Maguire MD Acct: [id number] Dis Date: Status: DEP CLI PHONE #: [phone] Exam Date: 04/08/2020 1540 FAX #: Reason: unilateral primary osteoarthritis EXAMS: CPT: [id number] XR FOOT 3+[place] [address] Fluoro Time: DAP (Gy m2): Air Kerma [...] PAGE 1 Signed Report Name: AMINTA RAJAN [facility] : 1940 Age/S: 79 / M [address] Unit #: [id number] Loc: [place] [address] Phys: Zhou Maguire MD Acct: [id number] Dis Date: Status: DEP CLI PHONE #: [phone] Exam Date: 04/08/2020 1540 FAX #: Reason: unilateral primary osteoarthritis EXAMS: CPT: [id number] XR FOOT 3+[place] [address] Fluoro Time: DAP (Gy m2): Air Kerma (mGy): <Continued> Technologist: Matilda Angela, RT(R)(CT); Melissa Oneill RT(R) Trntnb Date/Time: 04/08/2020 (163) [email or web address].JP19 Orig Print D/T: S: 04/08/2020 (0275) PAGE 2 Signed Report - XR ANKLE 3+V LT 2020-04-08 Name: AMINTA RAJAN 16:34:00 EN [facility] : 1940 Age/S: 79 / M [address] Unit #: [id number] Loc: [place] [address] Phys: Zhou Maguire MD Acct: [id number] Dis Date: Status: REG CLI PHONE #: [phone] Exam Date: 04/08/2020 1540 FAX #: Reason: unilateral primary osteoarthritis EXAMS: CPT: [id number] XR ANKLE 3+[place] [address] Fluoro Time: DAP (Gy m2): Air Kerma [...] PAGE 1 Signed Report Name: AMINTA RAJAN [facility] : 1940 Age/S: 79 / M [address] Unit #: [id number] Loc: [place] [address] Phys: Zhou Maguire MD Acct: [id number] Dis Date: Status: REG CLI PHONE #: [phone] Exam Date: 04/08/2020 1540 FAX #: Reason: unilateral primary osteoarthritis EXAMS: CPT: [id number] XR ANKLE 3+[place] [address] Fluoro Time: DAP (Gy m2): Air Kerma (mGy): <Continued> Technologist: Matilda Angela, RT(R)(CT); Melissa Oneill RT(R) [facility] Date/Time: 04/08/2020 (163) t.MARIA [email or web address] Orig Print D/T: S: 04/08/2020 (3057) PAGE 2 Signed Report - XR ANKLE 3+V LT 2020-04-08 Name: AMINTA RAJAN 16:34:00 EN [facility] : 1940 Age/S: 79 / M [address] Unit #: [id number] Loc: [place] [address] Phys: Zhou Maguire MD Acct: [id number] Dis Date: Status: DEP CLI PHONE #: [phone] Exam Date: 04/08/2020 1540 FAX #: Reason: unilateral primary osteoarthritis EXAMS: CPT: [id number] XR ANKLE 3+[place] [address] Fluoro Time: DAP (Gy m2): Air Kerma [...] PAGE 1 Signed Report Name: AMINTA RAJAN [facility] : 1940 Age/S: 79 / M [address] Unit #: [id number] Loc: [place] [address] Phys: Zhou Maguire MD Acct: [id number] Dis Date: Status: DEP CLI PHONE #: [phone] Exam Date: 04/08/2020 1540 FAX #: Reason: unilateral primary osteoarthritis EXAMS: CPT: [id number] XR ANKLE 3+[place] [address] Fluoro Time: DAP (Gy m2): Air Kerma (mGy): <Continued> Technologist: Matilda Angela, RT(R)(CT); Melissa Oneill RT(R) [facility] Date/Time: 04/08/2020 (163) t.SDR.[email or web address] Orig Print D/T: S: 04/08/2020 (1166) PAGE 2 Signed Report POCT-GLUCOSE METER 2019-01-30 17:08:00 Test Item Value Reference Range Interpretation Comme nts POC-GLUCOSE METER (NV Self Representation Document Preparation) (test 171 mg/dL 70-110 H TESTED AT [facility] [address] code = 1538) [facility] 7703 0 POCT-GLUCOSE [id number] 12:25:00 Test Item Value Reference Range Interpretation Comments POC-GLUCOSE METER 242 mg/dL 70-110 H TESTED AT [facility] 6720 ([place] Self Representation Document Preparation) (test code = MELLELIER R [facility] 1538) [address] POCT-GLUCOSE [id number] 09:09:00 Test Item Value Reference Range Interpretation Comments POC-GLUCOSE METER 181 mg/dL 70-110 H TESTED AT [facility] 6720 (BEAKER) (test code = [place] 1538) [address] [id number] 05:31:00 Test Item Value Reference Range Interpretation Comments MAGNESIUM (BEAKER) (test code = 1.7 mg/dL 1.6-2.6 627) BASIC METABOLIC [id number] 05:31:00 Test Item Value Reference Range Interpretation [...] NOT APPLICABLE FOR DIALYSIS PATIEN TS. PROTHROMBIN [id number] 05:25:00 Test Item Value Reference Range Interpretation [...] valves.While on warfarin.CBC W/PLT COUNT & AUTO [id number] 05:13:00 Test Item Value Reference Range Interpretation [...] PERCENT (BEAKER) (test code = 2801) POCT-GLUCOSE [id number] 22:51:00 Test Item Value Reference Range Interpretation Comments POC-GLUCOSE METER 227 mg/dL 70-110 H TESTED AT [facility] 6720 (BEAKER) (test code = [place] 1538) [address] POCT-GLUCOSE [id number] 17:24:00 Test Item Value Reference Range Interpretation Comments POC-GLUCOSE METER 236 mg/dL 70-110 H TESTED AT [place] 8046420 (BEAKER) (test code = NIKO [address] [place] 1538) [address] URINALYSIS W/ [id number] 14:49:00 Test Item Value Reference Range Interpretation [...] 1585) SOURCE(BEAKER) (test code = Urine, Hannah 8766) POCT-GLUCOSE [id number] 13:02:00 Test Item Value Reference Range Interpretation Comments POC-GLUCOSE METER 180 mg/dL 70-110 H TESTED AT [facility] 6720 (BEAKER) (test code = NIKO Har[address] [place] 1538) [address] POCT-GLUCOSE [id number] 09:36:00 Test Item Value Reference Range Interpretation Comments POC-GLUCOSE METER 200 mg/dL 70-110 H TESTED AT [facility] 6720 (BEAKER) (test code = NIKO [place] 1538) [address] PROTHROMBIN [id number] 07:20:00 Test Item Value Reference Range Interpretation Comments PROTIME (BEAKER) (test code = 29.2 seconds 11.7-14.7 H 759) INR (BEAKER) (test code = 370) 2.8 <=5.9 RECOMMENDED COUMADIN/WARFARIN INR THERAPY RANGESSTANDARD DOSE: 2.0 - 3.0 Includes: PROPHYLAXIS forvenous thrombosis, systemic embolization; TREATMENT for venous thrombosis and/or pulmonary embolus.HIGH RISK: Target INR is 2.5-3.5 for patients with mechanical heart valves.While on warfarin.[id number] 07:16:00 Test Item Value Reference Range Interpretation Comments MAGNESIUM (BEAKER) (test code = 1.8 mg/dL 1.6-2.6 627) BASIC METABOLIC [id number] 07:16:00 Test Item Value Reference Range Interpretation [...] PATIEN TS. CBC W/PLT COUNT & AUTO [id number] 07:07:00 Test Item Value Reference Range Interpretation [...] PERCENT (BEAKER) (test code = 2801) POCT-GLUCOSE [id number] 22:06:00 Test Item Value Reference Range Interpretation Comments POC-GLUCOSE METER 222 mg/dL 70-110 H TESTED AT [place] [address] (BEAKER) (test code = [place] 1538) [address] POCT-GLUCOSE [id number] 18:33:00 Test Item Value Reference Range Interpretation Comments POC-GLUCOSE METER 227 mg/dL 70-110 H TESTED AT [place] [address] (BEAKER) (test code = [place] 1538) [address] URINALYSIS W/ REFLEX URINE [id number] 14:23:00 Test Item Value Reference Range Interpretation [...] = 1585) Many SOURCE(BEAKER) (test code = 2611) POCT-GLUCOSE [id number] 12:34:00 Test Item Value Reference Range Interpretation Comments POC-GLUCOSE METER 273 mg/dL 70-110 H TESTED AT [place] [address] (BEAKER) (test code = NIKO Har[place] 1538) [address] POCT-GLUCOSE [id number] 09:09:00 Test Item Value Reference Range Interpretation Comments POC-GLUCOSE METER 186 mg/dL 70-110 H TESTED AT [facility] 6720 (BEAKER) (test code = NIKO [place] 1538) [address] [id number] 07:43:00 Test Item Value Reference Range Interpretation Comments MAGNESIUM (BEAKER) (test code = 1.6 mg/dL 1.6-2.6 627) BASIC METABOLIC [id number] 07:43:00 Test Item Value Reference Range Interpretation [...] S NOT APPLICABLE FOR DIALYSIS PATIEN TS. [id number] 07:30:00 Test Item Value Reference Range Interpretation Comments PARTIAL THROMBOPLASTIN TIME 95.4 seconds 22.5-36.0 H (BEAKER) (test code = 760) While on warfarin.PROTHROMBIN TIME/[id number] 07:28:00 Test Item Value Reference Range Interpretation Comments PROTIME (BEAKER) (test code = 25.1 seconds 11.7-14.7 H 759) INR (BEAKER) (test code = 370) 2.3 <=5.9 RECOMMENDED COUMADIN/WARFARIN INR THERAPY RANGESSTANDARD DOSE: 2.0 - 3.0 Includes: PROPHYLAXIS forvenous thrombosis, systemic embolization; TREATMENT for venous thrombosis and/or pulmonary embolus.HIGH RISK: Target INR is 2.5-3.5 for patients with mechanical heart valves.While on warfarin.[id number] 23:08:00 Test Item Value Reference Range Interpretation Comments PARTIAL THROMBOPLASTIN TIME 66.2 seconds 22.5-36.0 H ([facility]) (test code = 760) POCT-GLUCOSE [id number] 22:14:00 Test Item Value Reference Range Interpretation Comments POC-GLUCOSE METER 224 mg/dL 70-110 H TESTED AT [place] [address] ([facility]) (test code = NIKO Harp [facility] 1538) [address] [id number] 19:24:00 Test Item Value Reference Range Interpretation Comments PARTIAL THROMBOPLASTIN TIME 121.7 seconds 22.5-36.0 H ([facility]) (test code = 760) POCT-GLUCOSE [id number] 17:07:00 Test Item Value Reference Range Interpretation Comments POC-GLUCOSE METER 191 mg/dL 70-110 H TESTED AT [place] [address] ([facility]) (test code = MELLCO L[place] 1538) [address] [id number] 12:57:00 Test Item Value Reference Range Interpretation Comments PARTIAL THROMBOPLASTIN TIME 95.5 seconds 22.5-36.0 H ([facility]) (test code = 760) POCT-GLUCOSE [id number] 12:11:00 Test Item Value Reference Range Interpretation Comments POC-GLUCOSE METER 217 mg/dL 70-110 H TESTED AT [place] [address] ([facility]) (test code = MELLCO Loyd [facility] 1538) [address] POCT-GLUCOSE [id number] 08:51:00 Test Item Value Reference Range Interpretation Comments POC-GLUCOSE METER 185 mg/dL 70-110 H TESTED AT [place] [address] ([facility]) (test code = MELLCO [place] 1538) [address] [id number] 05:36:00 Test Item Value Reference Range Interpretation Comments PARTIAL THROMBOPLASTIN TIME 117.7 seconds 22.5-36.0 H ([facility]) (test code = 760) While on warfarin.[id number] 05:06:00 Test Item Value Reference Range Interpretation Comments MAGNESIUM (BEAKER) (test code = 1.6 mg/dL 1.6-2.6 627) BASIC METABOLIC [id number] 05:06:00 Test Item Value Reference Range Interpretation [...] NOT APPLICABLE FOR DIALYSIS PATIEN TS. PROTHROMBIN TIME/[id number] 05:01:00 Test Item Value Reference Range Interpretation [...] METER 200 mg/dL 70-110 H TESTED AT [facility] 6720 ([place] Self Representation Document Preparation) (test code = MELLELIER [place] 1538) [address] POCT-GLUCOSE [id number] 17:51:00 Test Item Value Reference Range Interpretation Comments POC-GLUCOSE METER 224 mg/dL 70-110 H TESTED AT [facility] 6720 ([facility]) (test code = NIKO Har[place] 1538) [address] [id number] 13:34:00 Test Item Value Reference Range Interpretation Comments PARTIAL THROMBOPLASTIN TIME 85.8 seconds 22.5-36.0 H (BEAKER) (test code = 760) POCT-GLUCOSE [id number] 13:26:00 Test Item Value Reference Range Interpretation Comments POC-GLUCOSE METER 208 mg/dL 70-110 H TESTED AT [place] [address] ([facility]) (test code = NIKO Harp [facility] 1538) [address] POCT-GLUCOSE [id number] 09:09:00 Test Item Value Reference Range Interpretation Comments POC-GLUCOSE METER 203 mg/dL 70-110 H TESTED AT [place] [address] ([facility]) (test code = NIKO Harp [facility] 1538) [address] BASIC METABOLIC [id number] 07:09:00 Test Item Value Reference Range Interpretation [...] S NOT APPLICABLE FOR DIALYSIS PATIEN TS. [id number] 07:08:00 Test Item Value Reference Range Interpretation Comments MAGNESIUM (BEAKER) (test code = 1.6 mg/dL 1.6-2.6 627) [id number] 06:31:00 Test Item Value Reference Range Interpretation Comments PARTIAL THROMBOPLASTIN TIME 89.3 seconds 22.5-36.0 H ([facility]) (test code = 760) While on warfarin.PROTHROMBIN TIME/[id number] 06:29:00 Test Item Value Reference Range Interpretation Comments PROTIME ([facility]) (test code = 19.8 seconds 11.7-14.7 H 759) INR ([facility]) (test code = 370) 1.7 <=5.9 RECOMMENDED COUMADIN/WARFARIN INR THERAPY RANGESSTANDARD DOSE: 2.0 - 3.0 Includes: PROPHYLAXIS forvenous thrombosis, systemic embolization; TREATMENT for venous thrombosis and/or pulmonary embolus.HIGH RISK: Target INR is 2.5-3.5 for patients with mechanical heart valves.While on warfarin.[id number] 22:50:00 Test Item Value Reference Range Interpretation Comments PARTIAL THROMBOPLASTIN TIME 110.0 seconds 22.5-36.0 H ([facility]) (test code = 760) POCT-GLUCOSE [id number] 22:48:00 Test Item Value Reference Range Interpretation Comments POC-GLUCOSE METER 188 mg/dL 70-110 H TESTED AT [place] [address] ([facility]) (test code = NIKO Harp [facility] 1538) [id number] POCT-GLUCOSE [id number] 17:03:00 Test Item Value Reference Range Interpretation Comments POC-GLUCOSE METER 185 mg/dL 70-110 H TESTED AT [place] [address] ([facility]) (test code = MELLELIER Harp [facility] 1538) [id number] 15:20:00 Test Item Value Reference Range Interpretation Comments PARTIAL THROMBOPLASTIN TIME 64.0 seconds 22.5-36.0 H ([facility]) (test code = 760) POCT-GLUCOSE [id number] 12:48:00 Test Item Value Reference Range Interpretation Comments POC-GLUCOSE METER 269 mg/dL 70-110 H TESTED AT [place] [address] ([facility]) (test code = NIKO Harp [place] 1538) [id number] POCT-GLUCOSE [id number] 09:25:00 Test Item Value Reference Range Interpretation Comments POC-GLUCOSE METER 209 mg/dL 70-110 H TESTED AT [place] [address] ([facility]) (test code = NIKO Harp [place] 1538) [address] [id number] 06:39:00 Test Item Value Reference Range Interpretation Comments PARTIAL THROMBOPLASTIN TIME 102.4 seconds 22.5-36.0 H (BEAKER) (test code = 760) While on warfarin.VITAMIN D, 26-[id number] 05:39:00 Test Item Value Reference Range Interpretation Comments VITAMIN D 25-OH (BEAKER) (test 37.0 ng/mL 6.6-49.9 code = 2764) Effective 09/01/2017: Reference Range ChangeNew: 6.6-49.9 ng/mL Previous: 13.0-47.8 ng/mLRecommended Vitamin D Target Range: 30.0-40.0 ng/mLBASIC METABOLIC [id number] 05:16:00 Test Item Value Reference Range Interpretation [...] S NOT APPLICABLE FOR DIALYSIS PATIEN TS. [id number] 05:11:00 Test Item Value Reference Range Interpretation Comments PHOSPHORUS (BEAKER) (test code = 4.4 mg/dL 2.3-4.7 604) [id number] 05:11:00 Test Item Value Reference Range Interpretation Comments MAGNESIUM (BEAKER) (test code = 1.5 mg/dL 1.6-2.6 L 627) PROTHROMBIN TIME/[id number] 05:05:00 Test Item Value Reference Range Interpretation [...] METER 196 mg/dL 70-110 H TESTED AT [facility] 67 (SHANTI) (test code = NIKO Harp [facility] 1538) [address] POCT-GLUCOSE [id number] 16:37:00 Test Item Value Reference Range Interpretation Comments POC-GLUCOSE METER 211 mg/dL 70-110 H TESTED AT [place] [address] [facility] (test code = NIKO Harp [facility] 1538) [address] RAD, FOOT, 2 VIEWS, [id number] 13:10:00Reason for exam:->painFINAL REPORT TECHNIQUE: Frontal, lateral, [...] [place] Verified Date/Time: 01/24/2019 13:10:38 Reading Location: [facility] Radiology Reading Room -GLUCOSE [id number] 12:43:00 Test Item Value Reference Range Interpretation Comments POC-GLUCOSE METER 217 mg/dL 70-110 H TESTED AT [facility] 6720 (BEAKER) (test code = [place] 1538) [address] POCT-GLUCOSE [id number] 08:21:00 Test Item Value Reference Range Interpretation Comments POC-GLUCOSE METER 186 mg/dL 70-110 H TESTED AT [facility] 6720 (BEAKER) (test code = NIKO [place] 1538) [address] [id number] 05:21:00 Test Item Value Reference Range Interpretation Comments PHOSPHORUS (BEAKER) (test code = 4.5 mg/dL 2.3-4.7 604) [id number] 05:21:00 Test Item Value Reference Range Interpretation Comments MAGNESIUM (BEAKER) (test code = 1.7 mg/dL 1.6-2.6 627) BASIC METABOLIC [id number] 05:21:00 Test Item Value Reference Range Interpretation [...] S NOT APPLICABLE FOR DIALYSIS PATIEN TS. [id number] 05:16:00 Test Item Value Reference Range Interpretation Comments PARTIAL THROMBOPLASTIN TIME 84.7 seconds 22.5-36.0 H (BEAKER) (test code = 760) While on warfarin.PROTHROMBIN TIME/[id number] 05:14:00 Test Item Value Reference Range Interpretation Comments PROTIME ([facility]) (test code = 15.7 seconds 11.7-14.7 H 759) INR ([facility]) (test code = 370) 1.2 <=5.9 RECOMMENDED COUMADIN/WARFARIN INR THERAPY RANGESSTANDARD DOSE: 2.0 - 3.0 Includes: PROPHYLAXIS forvenous thrombosis, systemic embolization; TREATMENT for venous thrombosis and/or pulmonary embolus.HIGH RISK: Target INR is 2.5-3.5 for patients with mechanical heart valves.While on warfarin.POCT-GLUCOSE METER 2019-01-23 21:30:00 Test Item Value Reference Range Interpretation Comments POC-GLUCOSE METER 267 mg/dL 70-110 H TESTED AT [place] [address] ([facility]) (test code = [facility] Loyd [facility] 1538) [address] POCT-GLUCOSE [id number] 16:28:00 Test Item Value Reference Range Interpretation Comments POC-GLUCOSE METER 184 mg/dL 70-110 H TESTED AT [place] [address] ([facility]) (test code = [facility] 1538) [address] POCT-GLUCOSE [id number] 12:04:00 Test Item Value Reference Range Interpretation Comments POC-GLUCOSE METER 213 mg/dL 70-110 H TESTED AT [place] [address] ([facility]) (test code = [facility] 1538) [address] POCT-GLUCOSE [id number] 08:05:00 Test Item Value Reference Range Interpretation Comments POC-GLUCOSE METER 175 mg/dL 70-110 H TESTED AT [place] [address] ([facility]) (test code = [facility] Loyd [facility] 1538) [address] BLOOD [id number] 07:01:00 Test Item Value Reference Range Interpretation Comments CULTURE ([facility]) (test No growth in 5 days code = 1095) BLOOD [id number] 07:01:00 Test Item Value Reference Range Interpretation Comments CULTURE ([facility]) (test No growth in 5 days code = 1095) [id number] 05:40:00 Test Item Value Reference Range Interpretation Comments FERRITIN ([facility]) (test code = 361) 508 ng/mL 5-275 H Next blood drawCBC W/PLT COUNT & AUTO [id number] 05:25:00 Test Item Value Reference Range Interpretation [...] PERCENT (BEAKER) (test code = 2801) PROTHROMBIN TIME/[id number] 04:51:00 Test Item Value Reference Range Interpretation [...] S NOT APPLICABLE FOR DIALYSIS PATIEN TS. [id number] 04:48:00 Test Item Value Reference Range Interpretation Comments PHOSPHORUS (BEAKER) (test code = 5.7 mg/dL 2.3-4.7 H 604) [id number] 04:48:00 Test Item Value Reference Range Interpretation Comments MAGNESIUM (BEAKER) (test code = 1.3 mg/dL 1.6-2.6 L 627) [id number] 02:38:00 Test Item Value Reference Range Interpretation Comments PARTIAL THROMBOPLASTIN TIME 72.2 seconds 22.5-36.0 H (AKER) (test code = 760) POCT-GLUCOSE [id number] 23:00:00 Test Item Value Reference Range Interpretation Comments POC-GLUCOSE METER 227 mg/dL 70-110 H TESTED AT [place] [address] ([facility]) (test code = NIKO Harp [facility] 1538) [address] [id number] 21:03:00 Test Item Value Reference Range Interpretation Comments PARTIAL THROMBOPLASTIN TIME 88.9 seconds 22.5-36.0 H (AKER) (test code = 760) POCT-GLUCOSE [id number] 19:37:00 Test Item Value Reference Range Interpretation Comments POC-GLUCOSE METER 187 mg/dL 70-110 H TESTED AT [place] [address] ([facility]) (test code = [facility] 1538) [address] [id number] 16:35:00 Test Item Value Reference Range Interpretation Comments FERRITIN ([facility]) (test code = 361) 404 ng/mL 22-322 H Next blood drawPOCT-GLUCOSE [id number] 11:54:00 Test Item Value Reference Range Interpretation Comments POC-GLUCOSE METER 217 mg/dL 70-110 H TESTED AT [place] [address] ([facility]) (test code = [facility] 1538) [address] [id number] 11:49:00 Test Item Value Reference Range Interpretation Comments PARTIAL THROMBOPLASTIN TIME 65.5 seconds 22.5-36.0 H ([facility]) (test code = 760) POCT-GLUCOSE [id number] 08:15:00 Test Item Value Reference Range Interpretation Comments POC-GLUCOSE METER 183 mg/dL 70-110 H TESTED AT [place] [address] ([facility]) (test code = [facility] 1538) [address] VITAMIN [id number] 05:29:00 Test Item Value Reference Range Interpretation Comments VITAMIN B12 (BEAKER) (test code = 1426 pg/mL 213-816 H 774) Next blood drawNext blood drawBASIC METABOLIC [id number] 04:55:00 Test Item Value Reference Range Interpretation [...] S NOT APPLICABLE FOR DIALYSIS PATIEN TS. [id number] 04:48:00 Test Item Value Reference Range Interpretation Comments PHOSPHORUS (BEAKER) (test code = 4.9 mg/dL 2.3-4.7 H 604) [id number] 04:48:00 Test Item Value Reference Range Interpretation Comments MAGNESIUM (BEAKER) (test code = 1.4 mg/dL 1.6-2.6 L 627) [id number] 04:42:00 Test Item Value Reference Range Interpretation Comments PARTIAL THROMBOPLASTIN TIME 46.5 seconds 22.5-36.0 H (BEAKER) (test code = 760) While on warfarin.PROTHROMBIN TIME/[id number] 04:41:00 Test Item Value Reference Range Interpretation [...] METER 209 mg/dL 70-110 H TESTED AT [place] [address] ([facility]) (test code = NIKO Harp [place] 1538) [address] POCT-GLUCOSE [id number] 18:55:00 Test Item Value Reference Range Interpretation Comments POC-GLUCOSE METER 177 mg/dL 70-110 H TESTED AT [place] [address] ([facility]) (test code = NIKO Harp [facility] 1538) [address] PROTHROMBIN TIME/[id number] 15:00:00 Test Item Value Reference Range Interpretation Comments PROTIME ([facility]) (test code = 15.7 seconds 11.7-14.7 H 759) INR ([facility]) (test code = 370) 1.2 <=5.9 RECOMMENDED COUMADIN/WARFARIN INR THERAPY RANGESSTANDARD DOSE: 2.0 - 3.0 Includes: PROPHYLAXIS forvenous thrombosis, systemic embolization; TREATMENT for venous thrombosis and/or pulmonary embolus.HIGH RISK: Target INR is 2.5-3.5 for patients with mechanical heart valves.[id number] 13:32:00 Test Item Value Reference Range Interpretation Comments PARTIAL THROMBOPLASTIN TIME 76.3 seconds 22.5-36.0 H ([facility]) (test code = 760) POCT-GLUCOSE [id number] 12:15:00 Test Item Value Reference Range Interpretation Comments POC-GLUCOSE METER 273 mg/dL 70-110 H TESTED AT [place] [address] ([facility]) (test code = NIKO Harp [facility] 1538) [address] [id number] 11:33:00 Test Item Value Reference Range Interpretation Comments PARTIAL THROMBOPLASTIN TIME > seconds 22.5-36.0 HH ([facility]) (test code = 760) POCT-GLUCOSE [id number] 07:00:00 Test Item Value Reference Range Interpretation Comments POC-GLUCOSE METER 190 mg/dL 70-110 H TESTED AT [place] [address] ([facility]) (test code = [facility] Loyd [facility] 1538) [address] VITAMIN [id number] 04:08:00 Test Item Value Reference Range Interpretation Comments VITAMIN B12 ([facility]) (test code = 1616 pg/mL 213-816 H 774) Next blood drawNext blood [id number] 04:08:00 Test Item Value Reference Range Interpretation Comments FERRITIN (BEAKER) (test code = 361) 404 ng/mL 5-275 H Next blood drawNext blood drawBASIC METABOLIC [id number] 03:33:00 Test Item Value Reference Range Interpretation [...] S NOT APPLICABLE FOR DIALYSIS PATIEN TS. [id number] 03:30:00 Test Item Value Reference Range Interpretation Comments PHOSPHORUS (BEAKER) (test code = 5.2 mg/dL 2.3-4.7 H 604) [id number] 03:30:00 Test Item Value Reference Range Interpretation Comments MAGNESIUM (BEAKER) (test code = 1.6 mg/dL 1.6-2.6 627) [id number] 03:28:00 Test Item Value Reference Range Interpretation Comments PARTIAL THROMBOPLASTIN TIME 72.8 seconds 22.5-36.0 H (BEAKER) (test code = 760) CBC W/PLT COUNT & AUTO [id number] 03:17:00 Test Item Value Reference Range Interpretation [...] PERCENT (BEAKER) (test code = 2801) POCT-GLUCOSE [id number] 00:35:00 Test Item Value Reference Range Interpretation Comments POC-GLUCOSE METER 195 mg/dL 70-110 H TESTED AT [facility] 6720 (BEAKER) (test code = NIKO [place]EROS 1538) [address] [id number] 20:37:00 Test Item Value Reference Range Interpretation Comments PARTIAL THROMBOPLASTIN TIME 50.2 seconds 22.5-36.0 H (BEAKER) (test code = 760) POCT-GLUCOSE [id number] 18:35:00 Test Item Value Reference Range Interpretation Comments POC-GLUCOSE METER 173 mg/dL 70-110 H TESTED AT [facility] 6720 (BEAKER) (test code = NIKO Harp [facility] 1538) [address] BRONCHIAL CULTURE + GRAM [id number] 15:38:00 Test Item Value Reference Range Interpretation Comments CULTURE (BEAKER) <1+ Normal respiratory (test code = 1095) jeana present GRAM STAIN RESULT No White blood cells (BEAKER) (test code = seen 1123) GRAM STAIN RESULT No organisms seen (BEAKER) (test code = 90234) SPUTUM CULTURE + GRAM [id number] 14:47:00 Test Item Value Reference Range Interpretation Comments CULTURE (BEAKER) (test See comment code = 1095) GRAM STAIN RESULT <1+ WBCs (BEAKER) (test code = 1123) GRAM STAIN RESULT 0-5 epithelial cells (BEAKER) (test code = 293276) GRAM STAIN RESULT No organisms seen (BEAKER) (test code = 179618) <1+ yeast1+ Normal respiratory jeana presentMRSA [id number] 14:46:00 Test Item Value Reference Range Interpretation Comments CULTURE (BEAKER) (test code No MRSA isolated = 1095) SPUTUM CULTURE + GRAM [id number] 14:45:00 Test Item Value Reference Range Interpretation Comments CULTURE (BEAKER) See comment (test code = 1095) GRAM STAIN RESULT 2+ White blood cells (BEAKER) (test code = seen 1123) GRAM STAIN RESULT 0-5 epithelial cells (BEAKER) (test code = 521080) GRAM STAIN RESULT 1+ gram positive cocci (BEAKER) (test code = in pairs 654467) 1+ yeast1+ Normal respiratory jeana [id number] 14:20:00 Test Item Value Reference Range Interpretation Comments PARTIAL THROMBOPLASTIN TIME 57.9 seconds 22.5-36.0 H (BEAKER) (test code = 760) [id number] 12:47:00 Test Item Value Reference Range Interpretation Comments PARTIAL THROMBOPLASTIN TIME > seconds 22.5-36.0 HH (BEAKER) (test code = 760) POCT-GLUCOSE [id number] 12:39:00 Test Item Value Reference Range Interpretation Comments POC-GLUCOSE METER 194 mg/dL 70-110 H TESTED AT [facility] 6720 ([facility]) (test code = [facility] 1538) [address] VITAMIN [id number] 08:56:00 Test Item Value Reference Range Interpretation Comments VITAMIN B12 (BEAKER) (test code = 1677 pg/mL 213-816 H 774) Next blood drawNext blood [id number] 08:56:00 Test Item Value Reference Range Interpretation Comments FERRITIN (BEAKER) (test code = 361) 320 ng/mL 5-275 H Next blood drawNext blood drawPOCT-GLUCOSE [id number] 07:15:00 Test Item Value Reference Range Interpretation Comments POC-GLUCOSE METER 195 mg/dL 70-110 H TESTED AT [place] [address] ([facility]) (test code = [facility] 1538) [address] [id number] 05:51:00 Test Item Value Reference Range Interpretation Comments PARTIAL THROMBOPLASTIN TIME 47.1 seconds 22.5-36.0 H (BEAKER) (test code = 760) BASIC METABOLIC [id number] 05:40:00 Test Item Value Reference Range Interpretation [...] S NOT APPLICABLE FOR DIALYSIS PATIEN TS. [id number] 05:33:00 Test Item Value Reference Range Interpretation Comments MAGNESIUM (BEAKER) (test code = 1.9 mg/dL 1.6-2.6 627) [id number] 05:16:00 Test Item Value Reference Range Interpretation Comments PROCALCITONIN (BEAKER) (test code 0.89 ng/mL <0.05 H = 3036) SEPSIS RISK (ng/mL)Low: 0.05-0.50Intermediate: 0.51-2.00High: >=[id number] 05:10:00 Test Item Value Reference Range Interpretation Comments PARTIAL THROMBOPLASTIN TIME > seconds 22.5-36.0 HH (BEAKER) (test code = 760) [id number] 04:43:00 Test Item Value Reference Range Interpretation Comments PHOSPHORUS (BEAKER) (test code = 6.3 mg/dL 2.3-4.7 H 604) POCT-GLUCOSE [id number] 00:30:00 Test Item Value Reference Range Interpretation Comments POC-GLUCOSE METER 190 mg/dL 70-110 H TESTED AT [facility] 6720 (SHANTI) (test code = NIKO Harp [facility] 1538) [address] [id number] 22:42:00 Test Item Value Reference Range Interpretation Comments PARTIAL THROMBOPLASTIN TIME 30.8 seconds 22.5-36.0 (BEAKER) (test code = 760) [id number] 21:48:00 Test Item Value Reference Range Interpretation Comments PARTIAL THROMBOPLASTIN TIME 32.1 seconds 22.5-36.0 (BEAKER) (test code = 760) [id number] 20:02:00 Test Item Value Reference Range Interpretation Comments PARTIAL THROMBOPLASTIN TIME 154.5 seconds 22.5-36.0 HH (BEAKER) (test code = 760) U/S, RENAL, [id number] 17:24:00Reason for exam:->AKIFINAL REPORT Ultrasound of the [...] [place] Verified Date/Time: 01/19/2019 17:24:49 Reading Location: [address] Ultrasound Reading Room POCT-GLUCOSE [id number] 16:20:00 Test Item Value Reference Range Interpretation Comments POC-GLUCOSE METER 217 mg/dL 70-110 H TESTED AT [facility] 6720 (BEAKER) (test code = [facility] 1538) [address] BLOOD GAS, [id number] 13:45:00 Test Item Value Reference Range Interpretation [...] 1819) 40.0 % For 30 minutes AFTER [id number] 12:36:00 Test Item Value Reference Range Interpretation Comments PARTIAL THROMBOPLASTIN 102.5 seconds 22.5-36.0 H Spec imen not TIME (BEAKER) (test clotted code = 760) RAD, CHEST, 1 VIEW, NON [id number] 11:12:00Reason for exam:->pnaShould this be performed at [...] [place] Verified Date/Time: 01/19/2019 11:12:39 Reading Location: [facility] Radiology Reading Room POCT-GLUCOSE [id number] 06:18:00 Test Item Value Reference Range Interpretation Comments POC-GLUCOSE METER 224 mg/dL 70-110 H TESTED AT [facility] 6720 ([facility]) (test code = NIKO Harp [facility] 1538) [address] [id number] 05:20:00 Test Item Value Reference Range Interpretation Comments PARTIAL THROMBOPLASTIN TIME 28.9 seconds 22.5-36.0 ([facility]) (test code = 760) VITAMIN [id number] 04:57:00 Test Item Value Reference Range Interpretation Comments VITAMIN B12 (BEAKER) (test code = 1685 pg/mL 213-816 H 774) Next blood drawNext blood [id number] 04:57:00 Test Item Value Reference Range Interpretation Comments FERRITIN (BEAKER) (test code = 361) 320 ng/mL 5-275 H Next blood drawNext blood drawBASIC METABOLIC [id number] 04:35:00 Test Item Value Reference Range Interpretation [...] S NOT APPLICABLE FOR DIALYSIS PATIEN TS. [id number] 04:34:00 Test Item Value Reference Range Interpretation Comments PHOSPHORUS (BEAKER) (test code = 5.8 mg/dL 2.3-4.7 H 604) [id number] 04:34:00 Test Item Value Reference Range Interpretation Comments MAGNESIUM (BEAKER) (test code = 1.9 mg/dL 1.6-2.6 627) VANCOMYCIN LEVEL, [id number] 04:27:00 Test Item Value Reference Range Interpretation Comments VANCOMYCIN RANDOM (BEAKER) (test 14.6 ug/mL code = 523) Reference Range: No NormalsCBC W/PLT COUNT & AUTO [id number] 04:25:00 Test Item Value Reference Range Interpretation [...] PERCENT (BEAKER) (test code = 2801) POCT-GLUCOSE [id number] 02:05:00 Test Item Value Reference Range Interpretation Comments POC-GLUCOSE METER 145 mg/dL 70-110 H TESTED AT [facility] 6720 (BEAKER) (test code = NIKO MEDEROS 1538) [address] BODY FLUID CELL COUNT WITH [id number] 18:40:00 Test Item Value Reference Range Interpretation Comments APPEARANCE FLUID (BEAKER) (test Hazy Clear A code = 510) COLOR FLUID (BEAKER) (test code [place] Colorless, Straw A = 511) RBC FLUID [...] EDTA Tube (test code = 2873) POCT-GLUCOSE [id number] 18:12:00 Test Item Value Reference Range Interpretation Comments POC-GLUCOSE METER 195 mg/dL 70-110 H TESTED AT [place] [address] ([facility]) (test code = NIKO [place] 1538) [address] VITAMIN D, [id number] 15:12:00 Test Item Value Reference Range Interpretation Comments VITAMIN D 25-OH (BEAKER) (test 31.9 ng/mL 6.6-49.9 code = 2764) Effective 09/01/2017: Reference Range ChangeNew: 6.6-49.9 ng/mL Previous: 13.0-47.8 ng/mLRecommended Vitamin D Target Range: 30.0-40.0 ng/mLPTH, INTACT 2019-01-18 14:57:00 Test Item Value Reference Range Interpretation Comments PARATHYROID HORMONE INTACT 251.9 pg/mL 8.5-72.5 H (BEAKER) (test code = 577) POTASSIUM, RANDOM [id number] 14:55:00 Test Item Value Reference Range Interpretation Comments POTASSIUM URINE (BEAKER) (test 21.6 meq/L code = 195) Reference Range: No NormalsUREA NITROGEN, RANDOM [id number] 14:55:00 Test Item Value Reference Range Interpretation Comments UREA NITROGEN URINE (BEAKER) (test 603 mg/dL code = 538) Reference Range: No NormalsPOCT-GLUCOSE [id number] 12:17:00 Test Item Value Reference Range Interpretation Comments POC-GLUCOSE METER 170 mg/dL 70-110 H TESTED AT [facility] 67 ([facility]) ([facility] 1538) [address] [id number] 10:56:00 Test Item Value Reference Range Interpretation Comments PARTIAL THROMBOPLASTIN TIME 35.0 seconds 22.5-36.0 (BEAKER) (test code = 760) Prior to initiating heparinRAD, ABDOMEN/KUB, 1 VIEW [id number] 08:28:00Reason for exam:->OG positioningFINAL REPORT Abdomen date 01/18/2019 Comment: Frontal view of the abdomen demonstrates a nasogastric tube present with tip noted in the body of the stomach. Signed: Keya Harris MDReport Verified Date/Time: 01/18/2019 08:28:12 Reading Location: [facility] Radiology Reading Room POCT-GLUCOSE [id number] 06:12:00 Test Item Value Reference Range Interpretation Comments POC-GLUCOSE METER 161 mg/dL 70-110 H TESTED AT [facility] 6720 (BEAKER) (test code = [place] 1538) [address] VITAMIN [id number] 04:17:00 Test Item Value Reference Range Interpretation Comments VITAMIN B12 (BEAKER) (test code = 1363 pg/mL 213-816 H 774) Next blood drawNext blood drawNext blood [id number] 04:17:00 Test Item Value Reference Range Interpretation [...] = 1585) Many SOURCE(BEAKER) (test code = 4765) IRON, TIBC, % SAT. (WITHOUT FERRITIN)2019-01-18 03:54:00 [...] H (test code = 700) CREATININE, RANDOM [id number] 03:01:00 Test Item Value Reference Range Interpretation Comments CREATININE URINE (BEAKER) (test 82.0 mg/dL code = 375) Reference Range: No NormalsPROTEIN, RANDOM [id number] 03:01:00 Test Item Value Reference Range Interpretation Comments PROTEIN, URINE (BEAKER) (test code = 23 mg/dL 0-14 H 1569) SODIUM, RANDOM [id number] 03:01:00 Test Item Value Reference Range Interpretation Comments SODIUM URINE (BEAKER) (test code = 30 meq/L 243) Reference Range: No [id number] 02:58:00 Test Item Value Reference Range Interpretation Comments PHOSPHORUS (BEAKER) (test code = 5.3 mg/dL 2.3-4.7 H 604) [id number] 02:58:00 Test Item Value Reference Range Interpretation Comments MAGNESIUM (BEAKER) (test code = 1.8 mg/dL 1.6-2.6 627) LACTIC ACID, ARTERIAL, WHOLE [id number] 02:57:00 Test Item Value Reference Range Interpretation Comments LACTATE BLOOD 0.7 mmol/L 0.5-2.2 Specimen sligh tly ARTERIAL (2) (BEAKER) hemoly zed (test code = 2874) PROTHROMBIN [id number] 02:53:00 Test Item Value Reference Range Interpretation Comments PROTIME (BEAKER) (test code = 15.9 seconds 11.7-14.7 H 759) INR (BEAKER) (test code = 370) 1.3 <=5.9 RECOMMENDED COUMADIN/WARFARIN INR THERAPY RANGESSTANDARD DOSE: 2.0 - 3.0 Includes: PROPHYLAXIS forvenous thrombosis, systemic embolization; TREATMENT for venous thrombosis and/or pulmonary embolus.HIGH RISK: Target INR is 2.5-3.5 for patients with mechanical heart valves.[id number] 02:53:00 Test Item Value Reference Range Interpretation Comments PARTIAL THROMBOPLASTIN TIME 35.0 seconds 22.5-36.0 (BEAKER) (test code = 760) CBC W/PLT COUNT & AUTO [id number] 02:47:00 Test Item Value Reference Range Interpretation [...] = 2801) RAD, CHEST, 1 VIEW, NON [id number] 02:39:00Reason for exam:->advanced ET.Should this be performed [...] MDReport Verified Date/Time: 01/18/2019 02:39:22 Reading Location: [address] Transitional Reading Room BLOOD GAS, [id number] 02:20:00 Test Item Value Reference Range Interpretation [...] 50.0 % RAD, CHEST, 1 VIEW, NON [id number] 02:18:00Post-intubationReason for exam:- >intubated, pneumoniaShould this be [...] MDReport Verified Date/Time: 01/18/2019 02:18:06 Reading Location: [address] Transitional Reading Room
[2021-10-29] MEDS ORDERED: ONDANSETRON 4 MG/2 ML VIAL ONE (10:46)
[2021-10-29] MEDS ORDERED: HYDROMORPHONE HCL 1 MG/ML INJ ONE ×2 (10:46→13:26)
[2021-10-29] MEDS ORDERED: VITAMIN K (ADULT) 10 MG/ML ONE (10:47)
[2021-10-29 11:06] LABS: Absolute Lymphocytes (CBC) 1.2 K/uL (0.7-4.9); Hematocrit 40.8 % (39.6-49.0); Lymphocytes % 11.9 % (15.3-44.8); MPV 6.8 fL (7.6-11.3); RBC Red Blood Cell Count 4.31 M/uL (4.33-5.43)
[2021-10-29 11:25] LABS: ALT/SGPT 45 U/L (12-78); AST/SGOT 76 U/L (15-37); Albumin 2.3 g/dL (3.4-5.0); Alkaline Phosphatase 151 U/L (45-117); BUN Blood Urea Nitrogen 24 mg/dL (7-18); Bicarbonate 33 mmol/L (21-32); Bilirubin Direct 0.4 mg/dL (0-0.2); Bilirubin Total 0.6 mg/dL (0.2-1.0); Glucose Level 303 mg/dL (74-106); NT PRO-BNP 1311 pg/mL (<450); Potassium 4.2 mmol/L (3.5-5.1); Protein, Total 8.4 g/dL (6.4-8.2); Sodium Level 130 mmol/L (136-145); Troponin (Emerg Dept Use Only) < 0.02 ng/mL (0.0-0.045)
[2021-10-29 11:28] LABS: Protime INR 9.57
--- NOTE | 2021-10-29 12:04 | RAD REPORT ---
EXAM DESCRIPTION: CT - Head Brain Wo Cont - 10/29/2021 11:44 am CLINICAL HISTORY: Head injury status post fall COMPARISON: 2019 TECHNIQUE: Computed axial tomography of the head was obtained. IV contrast was not requested. All CT scans are performed using dose optimization technique as appropriate and may include automated exposure control or mA/KV adjustment according to patient size. FINDINGS: An intracranial bleed is not seen . The ventricles are normal in caliber. No extra-axial fluid collection is noted. Fluid within the sinuses/ mastoids is not seen. IMPRESSION: No acute intracranial abnormality is seen. If patient's symptoms persist MRI of the bra in would be recommended.
--- NOTE | 2021-10-29 12:12 | RAD REPORT ---
EXAM DESCRIPTION: CT - C Spine Wo Con - 10/29/2021 11:43 am CLINICAL HISTORY: Fall with neck pain COMPARISON: None. TECHNIQUE: Computed axial tomography of the cervical spine were obtained with sagittal and coronal r econstruction images generated and reviewed. All CT scans are performed using dose optimization technique as appropriate and may include automated exposure control or mA/KV adjustment according to patient size. FINDINGS: Slight anterior subluxation C2 on C3. Slight posterior subluxation C4 on C5 No fracture or dislocation is seen. Spondylosis involves the cervical spine resulting in multilevel marked foraminal and central spinal s tenosis. IMPRESSION: No fracture seen. Spondylosis resulting in multilevel marked foraminal and central spinal stenosis If the patient continues have symptoms to suggest spinal cord/spinal canal pathology then MRI would b e recommended.
--- NOTE | 2021-10-29 12:23 | RAD REPORT ---
EXAM DESCRIPTION: CTSpine Lumbar Wo Con10/29/2021 11:43 am CLINICAL HISTORY: Back injury with back pain status post fall COMPARISON: 2017 TECHNIQUE: Computed axial tomography lumbar spine was obtained with coronal and sagittal reconstruct ion. All CT scans are performed using dose optimization technique as appropriate and may include automated exposure control or mA/KV adjustment according to patient size. FINDINGS: Examination is somewhat limited secondary to body habitus. No fracture is seen. No dislocation is noted. A 27 millimeter calcific mass abuts the posterior aspect of the left ilium. Ankylosing spondylitis is present. IMPRESSION: A fracture is not seen. A 27 millimeter calcific mass abuts posterior aspect of the left ilium. It is recommended that the pa tient have a CT pelvis in 3 months to assess stability
--- NOTE | 2021-10-29 12:28 | RAD REPORT ---
EXAM DESCRIPTION: CTThoracic Spine Wo Cont10/29/2021 11:43 am CLINICAL HISTORY: Back injury with Back pain status post fall COMPARISON: None TECHNIQUE: Computed axial tomography of thoracic spine was obtained with coronal and sagittal recons truction. All CT scans are performed using dose optimization technique as appropriate and may include automated exposure control or mA/KV adjustment according to patient size. FINDINGS: Examination is limited secondary to body habitus No fracture is seen. No dislocation is noted. Ankylosing spondylitis is present. IMPRESSION: Negative for a thoracic fracture If the patient has clinical symptoms to suggest spinal cord/canal pathology then MRI would be recomme nded.
--- NOTE | 2021-10-29 12:37 | EDPHYS ---
Physician Documentation [facility] Name: Elbert Miller Age: 81 yrs Sex: Male : 1940 Arrival Date: 10/29/2021 Time: 10:24 Bed 26 Private MD: ED Physician Geoffrey Dixon HPI: 10/29 11:13 This 81 yrs old Male presents to ER via EMS with complaints of Blood in urine- elevated sp3 INR. 11:13 81-year-old male with a history of atrial fibrillation on Coumadin, prior pulmonary sp3 embolism, CHF, hypertension, herniated disc, bilateral lower extremity lymphedema presents to the ED after being told to come in for an elevated INR of 6.9 which is resulted in bloody urine and mild rectal bleeding per patient. On his way in patient was allegedly dropped by EMS up to [place] lift on the low level fall. EMS does confirm incident. Patient states that he "has back pain all over now". Patient denies head injury, chest pain, abdominal pain, fever, URI symptoms, any other ROS at this time. Patient has had similar symptoms in the past secondary to his INR being elevated.. Historical: - Allergies: 10:50 chlorpromazine HCl; jl7 10:50 clopidogrel bisulfate; jl7 10:50 Demerol; jl7 10:50 fluoxetine HCl; jl7 10:50 paroxetine HCl; jl7 10:50 Sulfa (Sulfonamide Antibiotics); jl7 - Home Meds: 10:50 Coumadin 1 mg oral tab [Active]; metoprolol tartrate 50 mg oral tab [Active]; jl7 pantoprazole 40 mg Oral chew 1 tab once daily [Active]; sertraline 50 mg Oral tab 1.5 tab once daily [Active]; glyburide 5 mg Oral tab [Active]; bumetanide 2 mg Oral tab [Active]; diltiazem HCl 120 mg Oral CDER [Active]; - PMHx: 10:50 Arthritis; Atrial Fib; blood clot in lungs; CHF; Hernia; Herniated disc; Hypertension; 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 - Social history:: Smoking status: Patient denies any tobacco usage or history of. ROS: 11:15 Constitutional: Negative for fever, chills, and weight loss, Eyes: Negative for injury, sp3 pain, redness, and discharge, ENT: Negative for injury, pain, and discharge, Neck: Negative for injury, pain, and swelling, Cardiovascular: Negative for chest pain, palpitations, and edema, Respiratory: Negative for shortness of breath, cough, wheezing, and pleuritic chest pain, Skin: Negative for injury, rash, and discoloration, Psych: Negative for depression, anxiety, suicide ideation, homicidal ideation, and hallucinations, Allergy/Immunology: Negative for hives, rash, and allergies, Endocrine: Negative for neck swelling, polydipsia, polyuria, polyphagia, and marked weight changes. 11:15 Abdomen/GI: Positive for Patient has mild suprapubic tenderness and brandy red urine in his indwelling Hannah catheter and bag. No peritoneal signs including rebound or guarding and patient does not have an acute abdomen.. 11:15 Back: Positive for Patient states he has diffuse pain along his entire spine. Due to body habitus, patient was not able to be rotated for evaluation or confirmation of rectal bleeding. Patient is 425 pounds requires multiple people to even transfer him.. 11:16 Back: sp3 Exam: 11:17 Constitutional: This is a well developed, well nourished patient who is awake, alert, sp3 and in no acute distress. Head/Face: Normocephalic, atraumatic. Eyes: Pupils equal round and reactive to light, extra-ocular motions intact. Lids and lashes normal. Conjunctiva and sclera are non-icteric and not injected. Cornea within normal limits. Periorbital areas with no swelling, redness, or edema. ENT: Nares patent. No nasal discharge, no septal abnormalities noted. External auditory canals are clear. Oropharynx with no redness, swelling, or masses, exudates, or evidence of obstruction, uvula midline. Mucous membranes moist. Neck: Trachea midline, no thyromegaly or masses palpated, and no cervical lymphadenopathy. Supple, full range of motion without nuchal rigidity, or vertebral point tenderness. No Meningismus. Chest/axilla: Normal chest wall appearance and motion. Nontender with no deformity. No lesions are appreciated. Cardiovascular: Regular rate and rhythm with a normal S1 and S2. No gallops, murmurs, or rubs. Normal PMI, no JVD. No pulse deficits. Respiratory: Lungs have equal breath sounds bilaterally, clear to auscultation and percussion. No rales, rhonchi or wheezes noted. No increased work of breathing, no retractions or nasal flaring. Neuro: Awake and alert, GCS 15, oriented to person, place, time, and situation. Cranial nerves II-XII grossly intact. Motor strength 5/5 in all extremities. Sensory grossly intact. Cerebellar exam normal. Normal gait. Psych: Awake, alert, with orientation to person, place and time. Behavior, mood, and affect are within normal limits. 11:17 Abdomen/GI: See ROS where physical exam was documented for back and abdomen. Patient does have suprapubic tenderness and brandy blood in his Hannah an indwelling catheter. Back was not fully assessed secondary to body habitus. Neurologically patient is grossly intact.. Vital Signs: 10:24 BP 124 / 103; Pulse 94; Resp 17; Temp 97.9; Pulse Ox 96% on R/A; Weight 191.42 kg; jl7 Height 5 ft. 10 in. (177.80 cm); Pain 10/10; 11:45 BP 123 / 81; Pulse 85; Resp 14; Pulse Ox 98% on 2 lpm NC; ll3 13:00 BP 123 / 101; Pulse 83; Resp 13; Pulse Ox 99% on 2 lpm NC; ll3 14:00 BP 91 / 68; Pulse 75; Resp 12; Pulse Ox 100% ; ll3 15:30 BP 98 / 78; Pulse 95; Resp 14; Pulse Ox 94% on 4 lpm NC; ll3 16:32 BP 103 / 81; Pulse 91; Resp 14; Pulse Ox 100% ; ll3 18:15 BP 94 / 76; Pulse 96; Resp 10; Pulse Ox 96% on 4 lpm NC; ll3 20:00 BP 136 / 101; Pulse 90; Resp 15; Pulse Ox 99% on 3 lpm NC; ld1 21:10 BP 124 / 113; Pulse 97; Resp 14; Pulse Ox 99% on 3 lpm NC; ld1 22:02 BP 92 / 56; Pulse 87; Resp 14; Pulse Ox 94% on 3 lpm NC; ld1 22:46 BP 132 / 118; Pulse 89; Resp 17; Pulse Ox 96% on 3 lpm NC; ld1 10:24 Body Mass Index 60.55 (191.42 kg, 177.80 cm) jl7 MDM: 10:31 Patient medically screened. sp3 11:18 Data reviewed: vital signs, nurses notes. ED course: 81-year-old male who is sp3 coagulopathic secondary to Coumadin. Will give vitamin K 10 mg subcu and admit patient to the hospital for continued observation and repeat INR in the morning. We will also CT patient's head, C, T, and L-spine to assess for any potential traumatic injury.. 10/29 10:37 Order name: Basic Metabolic Panel; Complete Time: 11:54 sp3 10/29 10:37 Order name: CBC with Diff; Complete Time: 11:54 sp3 10/29 10:37 Order name: LFT's; Complete Time: 11:54 sp3 10/29 10:37 Order name: Magnesium; Complete Time: 11:54 sp3 10/29 10:37 Order name: NT PRO-BNP; Complete Time: 11:54 sp3 10/29 10:37 Order name: PT-INR; Complete Time: 11:54 sp3 10/29 10:37 Order name: Troponin (emerg Dept Use Only); Complete Time: 11:54 sp3 10/29 12:38 Order name: SARS-COV-2 RT PCR (Document "Date of Onset" if Symptomatic); Complete Time: iw 14:52 10/29 15:04 Order name: Urine Culture EDMS 10/29 15:04 Order name: CBC without Diff EDMS 10/29 15:04 Order name: Urinalysis EDMS 10/29 15:59 Order name: C-Reactive Protein EDMS 10/29 15:59 Order name: Procalcitonin EDMS 10/29 17:19 Order name: Glucose, Ancillary Testing EDMS 10/29 21:22 Order name: Urine Microscopic Only EDMS 10/29 21:43 Order name: Glucose, Ancillary Testing EDMS 10/30 04:33 Order name: CBC with Automated Diff EDMS 10/30 04:54 Order name: Comprehensive Metabolic Panel EDMS 10/30 04:54 Order name: Magnesium EDMS 10/30 04:59 Order name: Protime (+INR) EDMS 10/30 06:00 Order name: Lactate EDMS 10/30 06:17 Order name: Procalcitonin EDMS 10/30 07:35 Order name: Type and Screen EDMS 10/30 07:55 Order name: Glucose, Ancillary Testing EDMS 10/30 12:02 Order name: Glucose, Ancillary Testing EDMS 10/30 14:59 Order name: Protime (+INR) EDMS 10/30 14:59 Order name: PTT, Activated Partial Thromb EDMS 10/30 16:34 Order name: Glucose, Ancillary Testing EDMS 10/30 19:36 Order name: Glucose, Ancillary Testing EDMS 10/31 05:47 Order name: CBC with Automated Diff EDMS 10/31 05:55 Order name: Protime (+INR) EDMS 10/31 06:08 Order name: Comprehensive Metabolic Panel EDMS 10/31 06:08 Order name: Uric Acid EDMS 10/31 06:08 Order name: Phosphorus EDMS 10/31 06:08 Order name: NT PRO-BNP EDMS 10/31 06:28 Order name: Cortisol EDMS 10/31 06:32 Order name: Procalcitonin EDMS 10/31 06:42 Order name: Blood Culture EDMS 10/31 07:39 Order name: Glucose, Ancillary Testing EDMS 10/31 10:10 Order name: Glucose, Ancillary Testing EDMS 10/31 11:46 Order name: Glucose, Ancillary Testing EDMS 10/31 16:15 Order name: Glucose, Ancillary Testing EDMS 10/31 20:37 Order name: Glucose, Ancillary Testing EDMS 11/01 05:49 Order name: CBC with Automated Diff EDMS 11/01 05:51 Order name: Protime (+INR) EDMS 11/01 06:00 Order name: Comprehensive Metabolic Panel EDMS 11/01 06:23 Order name: Procalcitonin EDMS 11/01 08:21 Order name: Glucose, Ancillary Testing EDMS 11/01 11:33 Order name: Gentamicin Level, Trough EDMS 11/01 11:49 Order name: Glucose, Ancillary Testing EDMS 11/01 14:28 Order name: Gentamicin Level, Peak EDMS 11/01 17:26 Order name: Glucose, Ancillary Testing EDMS 11/01 20:01 Order name: Glucose, Ancillary Testing EDMS 11/02 05:39 Order name: CBC with Automated Diff EDMS 11/02 05:50 Order name: Protime (+INR) EDMS 11/02 05:55 Order name: Comprehensive Metabolic Panel EDMS 11/02 06:18 Order name: Procalcitonin EDMS 11/02 07:46 Order name: Glucose, Ancillary Testing EDMS 11/02 10:14 Order name: Gentamicin Level, Trough EDMS 11/02 10:14 Order name: Gentamicin Once Daily Level EDMS 11/02 11:38 Order name: Glucose, Ancillary Testing EDMS 11/02 16:36 Order name: Glucose, Ancillary Testing EDMS 10/29 10:37 Order name: EKG; Complete Time: 10:38 sp3 10/29 10:37 Order name: Cardiac monitoring; Complete Time: 11:07 sp3 10/29 10:37 Order name: EKG - Nurse/Tech; Complete Time: 10:49 sp3 10/29 10:37 Order name: IV Saline Lock; Complete Time: 11:07 sp3 10/29 10:37 Order name: Labs collected and sent; Complete Time: 11:07 sp3 10/29 10:37 Order name: O2 Per Protocol; Complete Time: 11:07 sp3 10/29 10:37 Order name: O2 Sat Monitoring; Complete Time: 11:07 sp3 10/29 10:44 Order name: C Spine Wo Con; Complete Time: 14:52 EDMS 10/29 10:44 Order name: Spine Lumbar Wo Con; Complete Time: 14:52 EDMS 10/29 10:44 Order name: Thoracic Spine Wo Cont; Complete Time: 14:52 EDMS 10/29 11:08 Order name: Head Brain Wo Cont; Complete Time: 14:52 EDMS 10/29 15:52 Order name: CONS Physician Consult EDMS 10/29 16:00 Order name: Abdomen EDMS 10/30 07:17 Order name: US EDMS 10/30 07:19 Order name: RAD EDMS 10/30 09:04 Order name: CT EDMS 11/01 08:05 Order name: RAD EDMS 11/02 19:46 Order name: Glucose, Ancillary Testing EDMS 11/03 04:30 Order name: CBC with Automated Diff EDMS 11/03 04:30 Order name: Protime (+INR) EDMS 11/03 04:44 Order name: Comprehensive Metabolic Panel EDMS 11/03 07:41 Order name: Glucose, Ancillary Testing EDMS 11/03 11:36 Order name: Glucose, Ancillary Testing EDMS 11/03 11:55 Order name: Gentamicin Level, Trough EDMS 11/03 11:55 Order name: Gentamicin Once Daily Level EDMS 11/03 16:02 Order name: Gentamicin Level, Peak EDMS 11/03 16:13 Order name: Glucose, Ancillary Testing EDMS 11/03 22:02 Order name: Glucose, Ancillary Testing EDMS Administered Medications: 10:55 Drug: Vitamin K1 (phytonadione) 10 mg Route: Sub-Q; Site: abdomen; ll3 11:15 Follow up: Response: No adverse reaction ll3 11:06 Drug: Zofran (Ondansetron) 4 mg Route: IVP; Site: right antecubital; ll3 11:30 Follow up: Response: No adverse reaction ll3 11:07 Drug: Dilaudid (HYDROmorphone) 1 mg Route: IVP; Site: right antecubital; ll3 11:30 Follow up: Response: No adverse reaction; Pain is decreased ll3 13:37 Drug: Dilaudid (HYDROmorphone) 1 mg Route: IVP; Site: right antecubital; ll3 14:20 Follow up: Response: No adverse reaction; Pain is decreased ll3 Disposition Summary: 10/29/21 12:36 Hospitalization Ordered Hospitalization Status: Observation sp3 Provider: Isaias Duarte sp3 Condition: Stable sp3 Problem: an acute exacerbation sp3 Symptoms: are unchanged sp3 Bed/Room Type: Standard sp3 Location: Telemetry/MedSurg (Inpatient)(11/03/21 16:51) [facility] Room Assignment: [facility](11/03/21 16:51) [facility] Diagnosis - Coumadin coagulopathy sp3 Forms: - Medication Reconciliation Form sp3 - SBAR form sp3 Signatures: Dispatcher [employer] EDMarbella Hernández RN RN jl7 Josafat Newton RN RN ja1 Olga Reynaga Setul, MD MD sp3 Sage Jean-Baptiste RN RN ll3 Corrections: (The following items were deleted from the chart) 10:54 10:50 Home Meds: warfarin 5 mg Oral tab 1 tab once daily; jl7 jl7 11:17 11:15 Abdomen/GI: Positive for Patient has mild suprapubic tenderness and brandy red sp3 urine in his indwelling Hannah catheter and bag. No peritoneal signs including rebound or guarding and patient does not have an acute abdomen., sp3 11:17 11:15 Back: Positive for Patient states he has diffuse pain along his entire spine. Due sp3 to body habitus, patient was not able to be rotated for evaluation or confirmation of rectal bleeding. Patient is 425 pounds requires multiple people to even transfer him., sp3 16:13 12:36 Telemetry/MedSurg (observation) sp3 ja1 16:13 12:36 sp3 ja1 11/02 11:54 12/08 16:13 [facility] ER HOLD ja1 eb 11/02 11:54 1208 16:13 ERHOLD- ja1 eb 11/02 17:10 11:54 Telemetry/MedSurg (observation) eb eb 17:10 11:54 207 eb eb 11/03 16:51 12/12 17:10 [facility] ER HOLD eb ja1 11/03 16:51 1212 17:10 ERHOLD- eb ja1
--- NOTE | 2021-10-29 12:37 | ER ---
Nurse's Notes [facility] Name: Elbert Miller Age: 81 yrs Sex: Male : 1940 Arrival Date: 10/29/2021 Time: 10:24 Bed 26 Private MD: Diagnosis: Coumadin coagulopathy Presentation: 10/29 10:24 Chief complaint: EMS states: Toned out for blood in urinary catheter, pt reports INR is jl7 6.9, pain to groin and "rectum". Pt was dropped to the floor while attempting to place pt on stretcher with Kandice lift, pt complaining of back pain. Coronavirus screen: At this time, the client does not indicate any symptoms associated with coronavirus-19. 10:24 Method Of Arrival: EMS: [facility] jl7 10:24 Ebola Screen: No symptoms or risks identified at this time. Initial Sepsis Screen: Does jl7 the patient meet any 2 criteria? No. Patient's initial sepsis screen is negative. Does the patient have a suspected source of infection? No. Patient's initial sepsis screen is negative. Risk Assessment: Do you want to hurt yourself or someone else? Patient reports no desire to harm self or others. Onset of symptoms is unknown. Care prior to arrival: None. Transition of care: patient was not received from another setting of care. 10:24 Acuity: [place] 3 jl7 Triage Assessment: 10:50 General: Appears in no apparent distress. uncomfortable, obese, Behavior is jl7 cooperative, anxious, fussy. Pain: Complains of pain in back, buttocks and pelvis Pain currently is 10 out of 10 on a pain scale. Neuro: Level of Consciousness is awake, alert, obeys commands, Oriented to person, place, time, situation. Cardiovascular: Patient's skin is warm and dry. Respiratory: Airway is patent Respiratory effort is even, unlabored, Respiratory pattern is regular, symmetrical. : Hannah in place to gravity drainage Urine is brandy blood. Derm: Skin is pink, warm \\T\\ dry. Historical: - Allergies: 10:50 chlorpromazine HCl; jl7 10:50 clopidogrel bisulfate; jl7 10:50 Demerol; jl7 10:50 fluoxetine HCl; jl7 10:50 paroxetine HCl; jl7 10:50 Sulfa (Sulfonamide Antibiotics); jl7 - Home Meds: 10:50 Coumadin 1 mg oral tab [Active]; metoprolol tartrate 50 mg oral tab [Active]; jl7 pantoprazole 40 mg Oral chew 1 tab once daily [Active]; sertraline 50 mg Oral tab 1.5 tab once daily [Active]; glyburide 5 mg Oral tab [Active]; bumetanide 2 mg Oral tab [Active]; diltiazem HCl 120 mg Oral CDER [Active]; - PMHx: 10:50 Arthritis; Atrial Fib; blood clot in lungs; CHF; Hernia; Herniated disc; Hypertension; 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 - Social history:: Smoking status: Patient denies any tobacco usage or history of. Screenin:50 Abuse screen: Denies threats or abuse. Nutritional screening: No deficits noted. ll3 Tuberculosis screening: No symptoms or risk factors identified. Fall Risk Fall in past 12 months (25 points). Secondary diagnosis (15 points) impaired mobility, IV access (20 points). Ambulatory Aid- None/Bed Rest/Nurse Assist (0 pts). Gait- Weak (10 pts.). Mental Status- Oriented to own ability (0 pts). Total Lincoln Fall Scale indicates High Risk Score (45 or more points). Fall prevention measures have been instituted. Side Rails Up X 2 Placed Close to Nursing Station As available patient and family educated on Fall Prevention Program and Strategies. Assessment: 10:50 General: Appears in no apparent distress. uncomfortable, Behavior is cooperative, ll3 anxious. Pain: Complains of pain in pelvis and buttocks Pain currently is 9 out of 10 on a pain scale. Quality of pain is described as aching, Pain began 1 hour ago. Is continuous. Neuro: Level of Consciousness is awake, alert, obeys commands, Oriented to person, place, time, situation. Cardiovascular: Patient's skin is warm and dry. Respiratory: Airway is patent Respiratory effort is even, unlabored, Respiratory pattern is regular, symmetrical. : Urine is blood tinged, Reports pain Pt reports pain in penis. Derm: Skin is pink, warm \\T\\ dry. Injury Description: Pt states EMS dropped him on the floor from the Kandice lift while transfering to [facility]. 11:51 Reassessment: Patient appears in no apparent distress at this time. Patient and/or ll3 family updated on plan of care and expected duration. Pain level reassessed. Patient is alert, oriented x 3, equal unlabored respirations, skin warm/dry/pink. 13:00 Reassessment: Patient appears in no apparent distress at this time. Patient and/or ll3 family updated on plan of care and expected duration. Pain level reassessed. Patient is alert, oriented x 3, equal unlabored respirations, skin warm/dry/pink. 14:00 Reassessment: Patient appears in no apparent distress at this time. Patient and/or ll3 family updated on plan of care and expected duration. Pain level reassessed. Patient is alert, oriented x 3, equal unlabored respirations, skin warm/dry/pink. 15:00 Reassessment: Patient appears in no apparent distress at this time. Patient and/or ll3 family updated on plan of care and expected duration. Pain level reassessed. Patient is alert, oriented x 3, equal unlabored respirations, skin warm/dry/pink. 15:45 Reassessment: Dr. Duarte at bedside assessing pt, pt laying in bed with eyes closed, jl7 respirations even and unlabored. Dr. Duarte requested assistance to wake pt, SPO2 100%, HR 85, RR 15; pt noted to be difficult to wake, once awake pt disoriented and remained disoriented for several minutes then became more oriented. 16:32 Reassessment: Patient appears in no apparent distress at this time. Patient and/or ll3 family updated on plan of care and expected duration. Pain level reassessed. Patient is alert, oriented x 3, equal unlabored respirations, skin warm/dry/pink. 17:00 Reassessment: Clamped pt's Hannah to obtain urine sample, pt noted to be drowsy and jl7 disoriented and slurring words, disoriented to place, time and situation. Pt noted to be repeating himself. Attempted to orient pt from approximately 5 minutes with no success. Dr. Dixon notified and gave VO to check sugar, BGL 259, pt remains disoriented for several additional minutes. Dr. Dixon at bedside and pt no longer slurring words and A\\T\\Ox4; no new orders received at this time. 17:30 Reassessment: Patient appears in no apparent distress at this time. Patient and/or ll3 family updated on plan of care and expected duration. Pain level reassessed. Patient is alert, oriented x 3, equal unlabored respirations, skin warm/dry/pink. 18:57 Reassessment: Patient appears in no apparent distress at this time. Patient and/or ll3 family updated on plan of care and expected duration. Pain level reassessed. Patient is alert, oriented x 3, equal unlabored respirations, skin warm/dry/pink. 20:00 Reassessment: Patient appears in no apparent distress at this time. Patient and/or ld1 family updated on plan of care and expected duration. Pain level reassessed. 21:30 Reassessment: Patient appears in no apparent distress at this time. No changes from ld1 previously documented assessment. Patient and/or family updated on plan of care and expected duration. Pain level reassessed. 22:30 Reassessment: Gave report to PAU Galloway. Transferred care of patient. ld1 Vital Signs: 10:24 BP 124 / 103; Pulse 94; Resp 17; Temp 97.9; Pulse Ox 96% on R/A; Weight 191.42 kg; jl7 Height 5 ft. 10 in. (177.80 cm); Pain 10/10; 11:45 BP 123 / 81; Pulse 85; Resp 14; Pulse Ox 98% on 2 lpm NC; ll3 13:00 BP 123 / 101; Pulse 83; Resp 13; Pulse Ox 99% on 2 lpm NC; ll3 14:00 BP 91 / 68; Pulse 75; Resp 12; Pulse Ox 100% ; ll3 15:30 BP 98 / 78; Pulse 95; Resp 14; Pulse Ox 94% on 4 lpm NC; ll3 16:32 BP 103 / 81; Pulse 91; Resp 14; Pulse Ox 100% ; ll3 18:15 BP 94 / 76; Pulse 96; Resp 10; Pulse Ox 96% on 4 lpm NC; ll3 20:00 BP 136 / 101; Pulse 90; Resp 15; Pulse Ox 99% on 3 lpm NC; ld1 21:10 BP 124 / 113; Pulse 97; Resp 14; Pulse Ox 99% on 3 lpm NC; ld1 22:02 BP 92 / 56; Pulse 87; Resp 14; Pulse Ox 94% on 3 lpm NC; ld1 22:46 BP 132 / 118; Pulse 89; Resp 17; Pulse Ox 96% on 3 lpm NC; ld1 10:24 Body Mass Index 60.55 (191.42 kg, 177.80 cm) jl7 ED Course: 10:24 Patient arrived in ED. iw 10:30 Geoffrey Dixon MD is Attending Physician. sp3 10:41 Sage Jean-Baptiste RN is Primary Nurse. ll3 10:49 Triage completed. jl7 10:50 Arm band placed on right wrist. jl7 10:50 Patient has correct armband on for positive identification. Bed in low position. Call ll3 light in reach. Side rails up X2. 10:50 Initial lab(s) drawn, by ED staff, sent to lab. Inserted saline lock: 20 gauge in right ll3 antecubital area, using aseptic technique. Blood collected. 11:28 Notified primary nurse of critical lab values - INR 9.57, Pt 112.6. al4 11:43 C Spine Wo Con In Process Unspecified. EDMS 11:43 Spine Lumbar Wo Con In Process Unspecified. EDMS 11:43 Thoracic Spine Wo Cont In Process Unspecified. EDMS 11:44 Head Brain Wo Cont In Process Unspecified. EDMS 11:51 EKG done, by ED staff. ll3 12:35 Isaias Duarte MD is Hospitalizing Provider. sp3 19:35 No provider procedures requiring assistance completed. Patient admitted, IV remains in jl7 place. intact, No redness/swelling at site. 10/30 19:53 Primary Nurse role handed off by Sage Jean-Baptiste, PAU cs9 Administered Medications: 10/29 10:55 Drug: Vitamin K1 (phytonadione) 10 mg Route: Sub-Q; Site: abdomen; ll3 11:15 Follow up: Response: No adverse reaction ll3 11:06 Drug: Zofran (Ondansetron) 4 mg Route: IVP; Site: right antecubital; ll3 11:30 Follow up: Response: No adverse reaction ll3 11:07 Drug: Dilaudid (HYDROmorphone) 1 mg Route: IVP; Site: right antecubital; ll3 11:30 Follow up: Response: No adverse reaction; Pain is decreased ll3 13:37 Drug: Dilaudid (HYDROmorphone) 1 mg Route: IVP; Site: right antecubital; ll3 14:20 Follow up: Response: No adverse reaction; Pain is decreased ll3 Outcome: 12:36 Decision to Hospitalize by Provider. sp3 19:35 Admitted to ER Hold. Please see [facility] for further documentation. jl7 19:35 Condition: stable 19:35 Discharge instructions given to patient, Instructed on the need for admit, Demonstrated understanding of instructions. 11/03 22:42 Patient left the ED. mw2 Signatures: Dispatcher [employer] EDKelly Bowman RN PAU iw Marbella Sherwood RN RN jl7 Addy Bajwa mw2 Talya Hebert RN RN ld1 Geoffrey Dixon MD MD sp3 Mckayla Saunders Lynsea, RN RN ll3 Steven Galvez Corrections: (The following items were deleted from the chart) 10/29 10:54 10:50 Home Meds: warfarin 5 mg Oral tab 1 tab once daily; jl7 jl7
[2021-10-29 15:56] LABS: Hematocrit 39.7 % (39.6-49.0); MPV 7.2 fL (7.6-11.3); RBC Red Blood Cell Count 4.17 M/uL (4.33-5.43)
--- NOTE | 2021-10-29 15:59 | P.HP ---
Certification for Inpatient Patient admitted to: Inpatient With expected LOS: >2 Midnights Practitioner: I am a practitioner with admitting privileges, knowledge of patient current condition, hospital course, and medical plan of care. Services: Services provided to patient in accordance with Admission requirements found in Title 42 Section 412.3 of the Code of Federal Regulations Patient History Date of Service: 10/29/21 Reason for admission: Brandy hematuria, supratherapeutic INR History of Present Illness: 81yo M, PMH: A. fib on Coumadin, prior PE, CHF, HTN, chronic back pain, chronic bilateral lower extremity lymphedema, DM2 Presents to the ER via EMS due to elevated INR and hematuria. History unable to be obtained from patient at time of my exam. Patient with some confusion and slow to answer after receiving 2 mg total of Dilaudid. He was alert and oriented x2, but he would get lost midway through his sentence and fall asleep. ER staff stated this began after pain medication, he was alert and oriented x3 earlier. ER physician reports patient has been having hematuria for few days, he had a home nurse check his INR at home which was greater than 6, so he was sent to the ER. Apparently on transportation to the ER, patient was dropped from his Kandice lift. Patient is complaining of worsening of his chronic back pain. CT of his spine was performed and negative for acute process. Patient was in the ED 2 days ago for testicular/groin pain, and diagnosed with candidal balanitis, treated with nystatin topical. Patient points and motions to all of his groin area and states that has been hurting, unable to give a specific timeline. He reportedly told the ER physician that he was having some rectal pain as well. Denied rectal bleeding. Patient is bedbound, has chronic indwelling Hannah catheter, has history of UTIs. Denies any recent fever/chills. Allergies Sulfa (Sulfonamide Antibiotics) Allergy (Verified 09/25/21 00:57) Hives Home Medications: Ascorbic Acid [Vitamin C] 1 tab PO DAILY 09/25/21 Esomeprazole Magnesium [Nexium 24Hr] 1 tab PO DAILY 09/25/21 Gabapentin 600 mg PO QID 09/25/21 Iron,Carbonyl/Ascorbic Acid [Iron-Vitamin C 100-250 mg Tab] 1 tab PO DAILY 09/25/21 Multivit-Minerals/FA/Lycopene [One Daily Men's Health Tablet] 1 tab PO DAILY 09/25/21 Sertraline HCl 1.5 tab PO DAILY 09/25/21 dilTIAZem HCl [Diltiazem 24Hr ER (Cd)] 1 tab PO BID 09/25/21 glyBURIDE [Glyburide] 1 tab PO DAILY 09/25/21 Amiloride HCl [Midamor*] 10 mg PO BID #60 tablet 10/08/21 Bumetanide [Bumex] 2 mg PO BID #60 tablet 10/08/21 Cholecalciferol (Vitamin D3) [Vitamin D 5,000 IU Cap*] 5,000 unit PO DAILY #30 cap 10/08/21 Polyethyl Gly 3350 [Glycolax*] 17 gm PO DAILY PRN #30 udbot 10/08/21 Senosides [Senokot*] 17.2 mg PO BID #120 tab 10/08/21 Warfarin Sodium [Coumadin*] 2 mg PO SuTuThSa@1700 #30 tab 10/08/21 Warfarin Sodium [Coumadin*] 2.5 mg PO MoWeFr@1700 #30 tab 10/08/21 levoFLOXacin [Levaquin*] 750 mg PO Q48H #1 tab 10/08/21 - Past Medical/Surgical History Diabetic: No -: CHF -: HTN -: Lymphedema to the lower extremities -: Chronic indwelling urinary catheter -: Spinal stenosis of the back, chronic back pain -: History of DVT/PE, 1984, 1994 -: 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 -: GERD -: Iron deficiency anemia -: Large left-sided abdominal wall hernia -: Moderate-sized right sided abdominal wall hernia below the pannus. 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 He has no children. 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 - Family History Father -: Heart disease, Hypertension, GI disease Mother -: Heart disease - Social History Smoking Status: Unknown if ever smoked Alcohol use: No CD- Drugs: No Caffeine use: Yes Place of Residence: Home Review of Systems is unable to be obtained Physical Examination - Physical Exam General: Oriented x2, Other (Initially difficult to arouse, loses train of thought) HEENT: Sclerae nonicteric Respiratory: Diminished (At bases bilaterally) Cardiovascular: Regular rate/rhythm, Edema Gastrointestinal: Soft and benign, Other (Large abdominal wall hernia), Tenderness (Suprapubic) Musculoskeletal: No erythema, No tenderness Integumentary: Other (mild erythema of scrotum/penis, foul smelling, ? white/thick discharge in groin) Urinary: Hannah catheter (brandy hematuria, only partly translucent along some of the tubing) - Studies Laboratory Data (last 24 hrs) 10/29/21 10:58: PT 112.6 H, INR 9.57 H* 10/29/21 10:58: WBC 9.90, Hgb 13.5 L, Hct 40.8, Plt Count 292 10/29/21 10:58: Sodium 130 L, Potassium 4.2, BUN 24 H, Creatinine 1.56 H, Glucose 303 H, Magnesium 2.0, Total Bilirubin 0.6, AST 76 H, ALT 45, Alkaline Phosphatase 151 H Assessment and Plan - Advance Directives Does patient have a Living Will: No Does patient have a Durable POA for Healthcare: No Physician Review Additional Text: Problem List Brandy hematuria chronic atrial fibrillation on Coumadin Possible UTI CKD 3 Chronic diastolic CHF Chronic indwelling Hannah catheter NIDDM 2 Hypertension Unclear etiology of patient's supratherapeutic INR. He has been on chronic Coumadin, and unable to get accurate history from him at this time secondary to pain medication he received Unclear if he has been taking any extra medication by mistake, new medications, or any changes in his medications Patient received some vitamin K in the ED, hold home Coumadin Unclear etiology of his hematuria. He has an indwelling Hannah catheter and his supratherapeutic INR puts him at risk of hematuria secondary to trauma/supratherapeutic INR Has history of recurrent UTIs, will obtain UA and urine culture, he has been afebrile no leukocytosis repeat CBC consult urology Renal function appears to be near baseline, will consult nephrology if worsens Oxygen supplementation as needed review and confirm home medications, restart as appropriate Physical therapy ordered patient initially difficult to arouse, unable to get accurate history. Blood pressure now in the low end 90s/50s Suspect this is secondary to pain medication We will recheck CBC to evaluate any further drop in hemoglobin, check pro- Terence/CRP monitor in ICU today/overnight Dispo: anticipate hospitalization > 2days Time Spent Managing Pts Care (In Minutes): 35 Time Spent Managing Pts Care (In Minutes): 60
[2021-10-29] MEDS ORDERED: ONDANSETRON 4 MG/2 ML VIAL IV PRN (16:20)
[2021-10-29] MEDS: INSULIN -REGULAR HUMAN 50 UNIT/0.5 ML ML SQ SCH ×2 (16:30→21:00)
[2021-10-29] MEDS ORDERED: INSULIN -REGULAR HUMAN 50 UNIT/0.5 ML ML ONE (18:18)
[2021-10-29] MEDS ORDERED: LIDOCAINE JELLY 2% 5 ML SYRINGE TOP ONE (19:11)
[2021-10-29] MEDS ORDERED: WATER FOR INJ,STERILE 20 ML ONE (19:16)
[2021-10-29] MEDS: AMPICILLIN/SULBACT 1.5 GM in NA CHLORIDE 0.9% 100 ML IVPB SCH (20:00)
[2021-10-29 20:20] LABS: Urine Appearance TURBID (Clear); Urine Blood 3+ (Negative); Urine Color Red (Yellow); Urine Glucose NEGATIVE (Negative); Urine Protein 3+ (Negative)
[2021-10-29] MEDS: Gentamicin Inj 200 MG in NA CHLORIDE 0.9% 100 ML IVPB SCH (21:00)
[2021-10-29 21:04] LABS: Urine Microscopic Reflex ORDER UMIC
[2021-10-29 21:05] LABS: Urine Bilirubin NEGATIVE (Negative)
[2021-10-29 21:20] LABS: Urine RBC >50 /HPF (NONE SEEN)
[2021-10-29 21:21] LABS: Urine Bacteria >50 /HPF (NONE SEEN)
--- NOTE | 2021-10-29 21:56 | CON ---
Reason For Consultation: Gross hematuria and indwelling urethral catheter. History Of Present Illness: is a 81-year-old gentleman who is morbidly obese and has been a resident of a nursing facility where he has been managed for the last 10 plus years with an indwel ling urethral Hannah catheter. He recalls being able to void prior to the catheter being placed, but from his description, it sounds like given his morbid obesity, keeping his hygiene managed was such a difficult challenge that they felt having a urethral catheter would better allow them to care for александр junior. That catheter has been in place and has been managed apparently by this nursing facility for the last 10 years. As of recently, he was seen in the emergency department with gross hematuria and an I NR elevated to 9.57. The remainder of his laboratory analyses were as follows: Hemoglobin 13.1, white blood count slightly elevated at 14.2, creatinine 1.56 with an EGFR 43, sodium 130, alkaline phosphatase slightly elevated at 151, and proBNP 1311. A urine culture sent on 09/24/2021 revealed E. coli pansensitive, Enterococcus faecalis sensitive to penicillin, and Acinetobacter gentamicin sensitive. All the organisms were also sensitive to the flu oroquinolones. Physical Examination: On examination, the patient is morbidly obese with significant abdominal pannus overlapping infrapubi c fat obscuring his genitalia. Efforts to manage the clotted 16-Bahraini urethral Hannah catheter had b een made with trying to elevate his abdominal pannus for exposure to his genitalia. The patient was alert and communicative, seemingly appropriate. There was no dyspnea or signs of respiratory distres s. I then made an assessment of the genitalia and noted the presence of a mild subcoronal hypospadia s associated with a 16-Bahraini catheter, which was just dripping a small amount of bright red urine. Efforts had been made to flush the catheter without significant success. As a result, I embarked on the following procedure. Urethral Hannah catheter exchange and bladder irrigation procedure note: I then deflated the balloon and removed the indwelling 16-Bahraini urethral Hannah catheter. I then pre pped his genitalia and draped in standard fashion. A lidocaine Uro-Jet was applied intraurethrally f or local anesthesia. I then placed a 22-Bahraini 3-way hematuria Hannah catheter into his bladder with ease and placed 20 cc of sterile water into the balloon. I then irrigated his bladder with normal sa line and removed a modest volume of clot, which did initially try to obstruct the catheter. Once terrance t initial clot burden was removed, subsequent clots were then removed before irrigation went easily w ith return of only light pink urine. I then capped the 3-way port since CBI did not appear to be ind icated at this point, and I placed the catheter to a floor bag. Of note, some initial urine had been collected from the catheter and was sent for culture. The patient was then significantly relieved o f the distress he was experiencing associated with the retained urine, and I then made the following recommendations. Assessment: This is a 81-year-old gentleman, on anticoagulants with an elevated INR potentially cont ributing to his gross hematuria in the setting of likely cystitis due to colonization with bacteria a s described above in the setting of some stage IIIA chronic kidney disease and a subcoronal traumatic hypospadias from the indwelling catheter initially placed for hygiene maintenance purposes. I recommend leaving the new catheter in place at this point and simply observe, manually flushing it with 60 cc preservative-free normal saline and a catheter tip syringe as needed for clot obstruction. If significant ongoing pink hematuria persists, manual irrigation can be performed q.4 hours to mally p the urine from clotting. I also recommend Unasyn plus gentamicin no more than 2 or maximum 3 mg/kg per day to treat the likely infecting organisms contributing to his cystitis. Ultimately if the patient's urine becomes suffici ently clear and his INR resolves back to normal along with his other medical conditions, he may be di scharged home to complete a 14-day course of total antimicrobial therapy using oral ciprofloxacin or Levaquin. I also recommend exchanging the Hannah catheter back to either an 18- or a 20-Bahraini in 2 or 3 days on ce the hematuria has resolved, but prior to his discharge from the hospital. He will subsequently require a cystoscopic evaluation in followup, assessment of the development of t his gross hematuria and the complicated potential infection. Upper tract imaging is being planned and obtained by the hospitalist, and we will evaluate that resul ts once available. LEONEL/MEHGANA Voice ID: [id number] Report ID: [id number]
[2021-10-29] MEDS ORDERED: NA CHLORIDE 0.9% 100 ML ONE ×2 (23:38→23:43)
[2021-10-29] MEDS ORDERED: AMPICILLIN/SULBACT 1.5GM VIAL ONE (23:38)
[2021-10-29] MEDS ORDERED: GENTAMICIN SULF 80 MG/2ML INJ ONE (23:42)
[2021-10-30] MEDS ORDERED: AMPICILLIN/SULBACT 1.5GM VIAL IVPB SCH
[2021-10-30] MEDS: AMPICILLIN/SULBACT 1.5 GM in NA CHLORIDE 0.9% 100 ML IVPB SCH ×4 (00:27→06:00)
[2021-10-30] MEDS ORDERED: NA CHLORIDE 0.9% 500 ML IV ONE ×2 (00:40→05:05)
[2021-10-30] MEDS: Gentamicin Inj 200 MG in NA CHLORIDE 0.9% 100 ML IVPB SCH ×2 (00:46→09:00)
[2021-10-30] MEDS ORDERED: NA CHLORIDE 0.9% 500 ML ONE ×3 (00:49→08:06)
[2021-10-30 04:33] LABS: Absolute Lymphocytes (CBC) 1.3 K/uL (0.7-4.9); Lymphocytes % 11.2 % (15.3-44.8); MPV 7.3 fL (7.6-11.3); RBC Red Blood Cell Count 3.81 M/uL (4.33-5.43)
[2021-10-30 04:48] LABS: Bilirubin Total 0.8 mg/dL (0.2-1.0); Magnesium 2.1 mg/dL (1.8-2.4); Potassium 4.5 mmol/L (3.5-5.1); Protein, Total 7.5 g/dL (6.4-8.2)
[2021-10-30 04:58] LABS: Protime INR 10.55
[2021-10-30] MEDS ORDERED: VITAMIN K (ADULT) 10 MG/ML SQ ONE (05:18)
[2021-10-30] MEDS ORDERED: VITAMIN K (ADULT) 10 MG/ML ONE (05:41)
[2021-10-30] MEDS ORDERED: AMPICILLIN/SULBACT 1.5GM VIAL ONE (06:02)
[2021-10-30] MEDS ORDERED: NA CHLORIDE 0.9% 0 ML ONE (06:03)
--- NOTE | 2021-10-30 06:10 | P.PN ---
Date of Service: 10/30/21 Subjective: More awake and alert this morning, reports overall not feeling well, pain on moving from a fall MAR focal pen at the tip of his penis, where he sustained a tear Denies any abdominal pain Hypotensive overnight, given fluids with some improvement ROS: 10 point ROS as noted above, otherwise negative Physical exam GEN: Alert, oriented, appears uncomfortable, morbidly obese HEENT: Normal conjunctiva, sclera anicteric CV: Regular rate and rhythm, chronic lymphedema Pulm: Mildly labored respirations on 2 L nasal cannula ABD: Soft, nontender, + hernias Integumentary: Slight oozing around at her pinna/meatus Neuro: Normal speech, normal affect Problem List Parker hematuria UTI KAYLAH on CKD 3 chronic atrial fibrillation on Coumadin Chronic diastolic CHF Chronic indwelling Hannah catheter NIDDM 2 Hypertension Unclear etiology of patient's supratherapeutic INR. Patient states his INR had been increasing over the last week or so, he has had multiple changes in the medications, one-point went down on his dose, then went up. States he last took Coumadin on Wednesday or Wednesday, 10/26 or 10/27. States his doctor told him to stop due to an elevated INR. He is unsure of how high it was. Hematuria began the day of presentation to the ER Patient received some vitamin K in the ED, hold home Coumadin, repeat Vit K dose, give FFP this morning Unclear etiology of his hematuria. He has an indwelling Hannah catheter and his supratherapeutic INR puts him at risk of hematuria secondary to trauma/supratherapeutic INR Has history of recurrent UTIs, UA and culture sent on 10/29, concerning for possible UTI, initiated antibiotics on 10/29 consulted urology - placed 3 way cath, irrigate as needed, pt did have brief obstruction from blood clot shortly after admission renal function worsening, nephrology consulted, suspect dehydration Oxygen supplementation as needed review and confirm home medications, restart as appropriate Dispo: anticipate hospitalization > 2days Continue ICU level care today Time Spent Managing Pts Care (In Minutes): 35
--- NOTE | 2021-10-30 07:17 | RAD REPORT ---
EXAM DESCRIPTION: US - Renal Ultrasound-Complete - 10/30/2021 6:14 am CLINICAL HISTORY: KAYLAH COMPARISON: Abdomen Pelvis W Contrast dated 09/24/2021 FINDINGS: Limited by patient's body habitus. The right kidney measures 9.1 cm. No hydronephrosis. Th e left kidney was not visualized. IMPRESSION: Markedly limited due to body habitus. The left kidney was not visualized. No right-sided hydronephrosis.
--- NOTE | 2021-10-30 07:18 | RAD REPORT ---
EXAM DESCRIPTION: RAD - Chest Single View - 10/30/2021 5:52 am CLINICAL HISTORY: SOB COMPARISON: Chest Single View dated 09/30/2021; Chest Single View dated 09/24/2021; Chest Single View dated 12/13/2019; Chest Single View dated 07/12/2019 FINDINGS: Lines: None. Lungs: Worsened aeration of the lungs bilaterally with increasing diffuse opacities and prominence of the pulmonary vasculature. Pleural: Small effusions difficult to exclude. Cardiac: Cardiomegaly . Bones: No acute fractures. Other: IMPRESSION: Worsened pulmonary edema compared with 09/30/2021.
[2021-10-30] MEDS: INSULIN -REGULAR HUMAN 50 UNIT/0.5 ML ML SQ SCH ×4 (07:30→20:15)
--- NOTE | 2021-10-30 09:03 | RAD REPORT ---
EXAM DESCRIPTION: CTAbdomen Pelvis Wo Contrast - 10/30/2021 8:25 am CLINICAL HISTORY: suprapubic pain, elevated INR, worse renal fxn COMPARISON: Abdomen Pelvis W Contrast dated 09/24/2021; Stone Protocol dated 04/22/2018; Abdomen Pe lvis W Contrast dated 08/21/2016; Stone Protocol dated 05/24/2016 TECHNIQUE: CT of the abdomen and pelvis was performed. All CT scans are performed using dose optimization technique as appropriate and may include automated exposure control or mA/KV adjustment according to patient size. FINDINGS: Lower chest: Small left pleural effusion. Dependent atelectasis. Liver: No acute abnormality or suspicious lesions. Biliary: Cholecystectomy. Similar extrahepatic biliary ductal dilatation which may be related to the postcholecystectomy state. Stomach: Angel-en-Y gastric bypass. Duodenum: No significant focal abnormality. Pancreas: No significant abnormality. Spleen: No significant abnormality. Adrenal: No suspicious lesions. Kidney/ureter: No hydronephrosis. Nonobstructive right nephrolithiasis. Left renal cortical thinning. No hydronephrosis. Retroperitoneum: No retroperitoneal adenopathy. Vascular: IVC filter. Atherosclerosis. Bowel: No significant focal abnormality. Peritoneum: Abdominal wall laxity. Fat containing right inguinal hernia. Bladder: The bladder is mostly decompressed around a Hannah catheter. Gas within the bladder may be fr om instrumentation. Reproductive: No adnexal masses. Bones: No acute fracture. Degenerative changes are present in the hips and spine. Other: n/a IMPRESSION: No acute intra-abdominal or pelvic finding. Hannah catheter within the bladder. Gas withi n the bladder is presumably related to instrumentation. No hydronephrosis.
[2021-10-30] MEDS: AMPICILLIN/SULBACT 3 GM in NA CHLORIDE 0.9% 100 ML IVPB SCH ×2 (11:00→20:14)
[2021-10-30] MEDS ORDERED: TRAMADOL HCL 50 MG TAB ONE (11:17)
[2021-10-30] MEDS: TRAMADOL HCL 50 MG TAB PO PRN (11:52)
[2021-10-30] MEDS ORDERED: AMPICILLIN/SULBACT 1.5 GM in NA CHLORIDE 0.9% 100 ML IVPB SCH (12:00)
[2021-10-30] MEDS: GENTAMICIN 80 MG/100 ML BAG 240 MG/300 ML BAG IV SCH (12:00)
[2021-10-30] MEDS ORDERED: ACETAMINOPHEN 500 MG TAB ONE (12:58)
[2021-10-30] MEDS: ACETAMINOPHEN 500 MG TAB PO PRN (12:59)
--- NOTE | 2021-10-30 13:24 | P.CNS ---
Date of Consult: 10/30/21 Reason for Consult: Hypoxemia morbid obesity Chief Complaint: Parker hematuria, supratherapeutic INR History of Present Illness: Patient is 81 years of age admitted with hematuria PT/INR was significantly elevated he was taking warfarin for thromboembolic disease morbidly obese found to have low saturations patient has a history of sleep apnea was noncompliant and had to be sent back patient does not ambulate does not smoke Allergies Sulfa (Sulfonamide Antibiotics) Allergy (Verified 09/25/21 00:57) Hives Home Medications: Bumetanide [Bumex] 1 tab PO BID 10/30/21 Diltiazem HCl [Diltiazem 24Hr Cd] 1 cap PO BID 10/30/21 Metoprolol Tartrate 75 mg PO BID 10/30/21 Pantoprazole Sodium 1 tab PO DAILY 10/30/21 Sertraline HCl 75 mg PO DAILY 10/30/21 Warfarin Sodium [Coumadin*] 1 tab PO DAILY 10/30/21 glyBURIDE [Glyburide] 1 tab PO SEECOM 10/30/21 - Past Medical/Surgical History Diabetic: Yes -: CHF -: HTN -: Lymphedema to the lower extremities -: Chronic indwelling urinary catheter -: Spinal stenosis of the back, chronic back pain -: History of DVT/PE, 1984, 1994 -: 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 -: GERD -: Iron deficiency anemia -: Large left-sided abdominal wall hernia -: Moderate-sized right sided abdominal wall hernia below the pannus. 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 He has no children. 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 - Family History Father Medical History: Heart disease, Hypertension, GI disease Mother Medical History: Heart disease - Social History Smoking Status: Unknown if ever smoked Alcohol use: No CD- Drugs: No Caffeine use: Yes Place of Residence: Home Review of Systems 10-point ROS is otherwise unremarkable Genitourinary: Hematuria Physical Examination Temp Pulse Resp BP Pulse Ox 98.2 F 101 H 13 105/67 100 10/30/21 12:00 10/30/21 12:00 10/30/21 12:00 10/30/21 12:57 10/30/21 12:00 General: Alert, In no apparent distress, Oriented x3 Respiratory: Clear to auscultation bilaterally, Diminished Cardiovascular: Regular rate/rhythm, Edema (Significant lower extremity edema) Gastrointestinal: Normal bowel sounds, Soft and benign Laboratory Data (last 24 hrs) 10/29/21 15:41: WBC 14.20 H D, Hgb 13.1 L, Hct 39.7, Plt Count 311 - Problems (1) Hypoxemia Current Visit: Yes Status: Acute Plan: Patient is 81 years of age admitted with hematuria secondary to elevated INR from warfarin treatment is morbidly obese does not smoke multiple medical problems including lymphedema/also has chronic thromboembolic disease he denies shortness of breath was found to be hypoxic history of sleep apnea diagnosed years ago he tried the CPAP for a little while and that was taken away by the [employer] I suspect for noncompliance currently he saturations are satisfactory we will check his room air blood gas still has hematuria renal insufficiency chest x-ray is clear apparently patient had sustained a significa nt fall this time culture results are pending patient is on Unasyn and gentamicin patient had multiple organisms isolated from the urine and recommendation of antibiotics were as per nephrology we will check his a.m. ABG to determine the level of his CO2 in the blood once his INR is below 2/outpatient sleep study he is high risk for sleep apnea
[2021-10-30] MEDS ORDERED: HYDROMORPHONE HCL 0.5 MG/0.5 ML INJ ONE ×3 (13:48→21:28)
[2021-10-30] MEDS ORDERED: HYDROMORPHONE HCL 0.5 MG/0.5 ML INJ IV ONE (14:00)
[2021-10-30 14:59] LABS: Protime INR 7.83
[2021-10-30] MEDS: LIDOCAINE/PRILOCAINE CREAM TOP SCH (16:58)
[2021-10-30] MEDS: HYDROMORPHONE HCL 0.5 MG/0.5 ML INJ IV PRN ×2 (16:58→21:36)
[2021-10-30] MEDS ORDERED: NA CHLORIDE 0.9% 100 ML ONE (20:07)
[2021-10-30] MEDS ORDERED: AMPICILLIN/SULBACTAM 3GM/VIAL ONE (20:07)
[2021-10-30] MEDS ORDERED: INSULIN -REGULAR HUMAN 50 UNIT/0.5 ML ML ONE (20:10)
--- NOTE | 2021-10-30 20:33 | P.CNS ---
Date of Consult: 10/30/21 Reason for Consult: KAYLAH/ CKD Requesting Physician: Isaias Duarte Chief Complaint: Parker hematuria, supratherapeutic INR History of Present Illness: 81yo M, PMH: A. fib on Coumadin, prior PE, CHF, HTN, chronic back pain, chronic bilateral lower extremity lymphedema, DM2 Presents to the ER via EMS due to elevated INR and hematuria. History unable to be obtained from patient at time of my exam. Patient with some confusion and slow to answer after receiving 2 mg total of Dilaudid. He was alert and oriented x2, but he would get lost midway through his sentence and fall asleep. ER staff stated this began after pain medication, he was alert and oriented x3 earlier. ER physician reports patient has been having hematuria for few days, he had a home nurse check his INR at home which was greater than 6, so he was sent to the ER. Apparently on transportation to the ER, patient was dropped from his [employer] lift. Patient is complaining of worsening of his chronic back pain. CT of his spine was performed and negative for acute process. Patient was in the ED 2 days ago for testicular/groin pain, and diagnosed with candidal balanitis, treated with nystatin topical. Patient points and motions to all of his groin area and states that has been hurting, unable to give a specific timeline. He reportedly told the ER physician that he was having some rectal pain as well. Denied rectal bleeding. Patient is bedbound, has chronic indwelling Hannah catheter, has history of UTIs. Denies any recent fever/chills. 11:13 This 81 yrs old Male presents to ER via EMS with complaints of Blood in urine- elevated sp3 INR. 11:13 81-year-old male with a history of atrial fibrillation on Coumadin, prior pulmonary sp3 embolism, CHF, hypertension, herniated disc, bilateral lower extremity lymphedema presents to the ED after being told to come in for an elevated INR of 6.9 which is resulted in bloody urine and mild rectal bleeding per patient. On his way in patient was allegedly dropped by EMS up to [employer] lift on the low level fall. EMS does confirm incident. Patient states that he "has back pain all over now". Patient denies head injury, chest pain, abdominal pain, fever, URI symptoms, any other ROS at this time. Patient has had similar symptoms in the past secondary to his INR being elevated.. Allergies Sulfa (Sulfonamide Antibiotics) Allergy (Verified 09/25/21 00:57) Hives Home medications list reviewed: Yes Home Medications: Bumetanide [Bumex] 1 tab PO BID 10/30/21 Diltiazem HCl [Diltiazem 24Hr Cd] 1 cap PO BID 10/30/21 Metoprolol Tartrate 75 mg PO BID 10/30/21 Pantoprazole Sodium 1 tab PO DAILY 10/30/21 Sertraline HCl 75 mg PO DAILY 10/30/21 Warfarin Sodium [Coumadin*] 1 tab PO DAILY 10/30/21 glyBURIDE [Glyburide] 1 tab PO SEECOM 10/30/21 - Past Medical/Surgical History Diabetic: Yes -: CHF -: HTN -: Lymphedema to the lower extremities -: Chronic indwelling urinary catheter -: Spinal stenosis of the back, chronic back pain -: History of DVT/PE, 1984, 1994 -: 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 -: GERD -: Iron deficiency anemia -: Large left-sided abdominal wall hernia -: Moderate-sized right sided abdominal wall hernia below the pannus. 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 He has no children. He is retired. 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 - Family History Father Medical History: Heart disease, Hypertension, GI disease Mother Medical History: Heart disease - Social History Smoking Status: Unknown if ever smoked Alcohol use: No CD- Drugs: No Caffeine use: Yes Place of Residence: Home Review of Systems 10-point ROS is otherwise unremarkable General: Weakness, Malaise Respiratory: SOB with Excertion Genitourinary: Dysuria, Hematuria Physical Examination Temp Pulse Resp BP Pulse Ox 98 F 102 H 16 100/54 L 100 10/30/21 20:00 10/30/21 20:00 10/30/21 20:00 10/30/21 20:00 10/30/21 20:00 General: In no apparent distress, Oriented x3, Cooperative HEENT: Atraumatic Neck: Supple Respiratory: Diminished Cardiovascular: Regular rate/rhythm, Edema Gastrointestinal: Soft and benign, No guarding Musculoskeletal: No clubbing, No contractures Integumentary: No rashes, No cyanosis Neurological: Normal speech Blood work reviewed in the chart. Imagings Data: EXAM DESCRIPTION: CTAbdomen Pelvis Wo Contrast - 10/30/2021 8:25 a CLINICAL HISTORY: suprapubic pain, elevated INR, worse renal fxn COMPARISON: Abdomen Pelvis W Contrast dated 09/24/2021; Stone Protocol dated 04/22/2018; Abdomen Pelvis W Contrast dated 08/21/2016; Stone Protocol dated 05/24/2016 TECHNIQUE: CT of the abdomen and pelvis was performed. All CT scans are performed using dose optimization technique as appropriate and may include automated exposure control or mA/KV adjustment according to patient size. FINDINGS: Lower chest: Small left pleural effusion. Dependent atelectasis. Liver: No acute abnormality or suspicious lesions. Biliary: Cholecystectomy. Similar extrahepatic biliary ductal dilatation which may be related to the postcholecystectomy state. Stomach: Angel-en-Y gastric bypass. Duodenum: No significant focal abnormality. Pancreas: No significant abnormality. Spleen: No significant abnormality. Adrenal: No suspicious lesions. Kidney/ureter: No hydronephrosis. Nonobstructive right nephrolithiasis. Left renal cortical thinning. No hydronephrosis. Retroperitoneum: No retroperitoneal adenopathy. Vascular: IVC filter. Atherosclerosis. Bowel: No significant focal abnormality. Peritoneum: Abdominal wall laxity. Fat containing right inguinal hernia. Bladder: The bladder is mostly decompressed around a Hannah catheter. Gas within the bladder may be from instrumentation. Reproductive: No adnexal masses. Bones: No acute fracture. Degenerative changes are present in the hips and spine. Other: n/a IMPRESSION: No acute intra-abdominal or pelvic finding. Hannah catheter within the bladder. Gas within the bladder is presumably related to instrumentation. No hydronephrosis. EXAM DESCRIPTION: RAD - Chest Single View - 10/30/2021 5:52 am CLINICAL HISTORY: SOB COMPARISON: Chest Single View dated 09/30/2021; Chest Single View dated 09/24/2021; Chest Single View dated 12/13/2019; Chest Single View dated 07/12/2019 FINDINGS: Lines: None. Lungs: Worsened aeration of the lungs bilaterally with increasing diffuse opacities and prominence of the pulmonary vasculature. Pleural: Small effusions difficult to exclude. Cardiac: Cardiomegaly . Bones: No acute fractures. Other: IMPRESSION: Worsened pulmonary edema compared with 09/30/2021. EXAM DESCRIPTION: US - Renal Ultrasound-Complete - 10/30/2021 6:14 am CLINICAL HISTORY: KAYLAH COMPARISON: Abdomen Pelvis W Contrast dated 09/24/2021 FINDINGS: Limited by patient's body habitus. The right kidney measures 9.1 cm. No hydronephrosis. The left kidney was not visualized. IMPRESSION: Markedly limited due to body habitus. The left kidney was not visualized. No right-sided hydronephrosis. Conclusions/Impression: KAYLAH in the setting of hypotension. Gentamycin? CKD III Hematuria due to trauma -No NSAIDs -Check Gent level Hyponatremia -Repeat BMP in the am HTN with CKD/ CHF complicated by hypotension -No antihypertensives at this time -Give IV Albumin X1 -Consider midodrine Diastolic CHF, chronic -Low sodium diet DM II with hyperglycemia -RISS Moderate malnutrition Hypoalbuminemia -Consider Nepro Anemia in chronic illness Iron deficiency 14% -Monitor H&H Thank you kindly for consultation.
[2021-10-30] MEDS ORDERED: ALBUMIN HUMAN 25% 200 ML IV ONE (20:40)
[2021-10-30] MEDS ORDERED: ALBUMIN HUMAN 25% 100 ML IV ONE ×2 (20:49→21:12)
[2021-10-31 05:45] LABS: Absolute Lymphocytes (CBC) 1.1 K/uL (0.7-4.9); Hematocrit 32.6 % (39.6-49.0); Lymphocytes % 14.5 % (15.3-44.8); MPV 7.3 fL (7.6-11.3); RBC Red Blood Cell Count 3.46 M/uL (4.33-5.43)
[2021-10-31 05:55] LABS: Protime INR 7.77
[2021-10-31 06:04] LABS: Albumin 2.5 g/dL (3.4-5.0); Bilirubin Total 0.5 mg/dL (0.2-1.0); Phosphorus 4.3 mg/dL (2.5-4.9); Potassium 4.3 mmol/L (3.5-5.1); Protein, Total 7.5 g/dL (6.4-8.2); Uric Acid 9.7 mg/dL (3.5-7.2)
--- NOTE | 2021-10-31 06:33 | P.PN ---
Date of Service: 10/31/21 Subjective: no acute events overnight. pain improved with topical lidocaine and dilaudid, BP remains borderline continues with bleeding / darker blood ROS: 10 point ROS as noted above, otherwise negative Physical exam GEN: Alert, oriented, appears more comfortable, morbidly obese HEENT: Normal conjunctiva, sclera anicteric CV: Regular rate and rhythm, chronic lymphedema Pulm: Mildly labored respirations on 2 L nasal cannula ABD: Soft, nontender, + hernias Integumentary: Slight oozing around penis/meatus Neuro: Normal speech, normal affect Problem List Parker hematuria UTI KAYLAH on CKD 3 supratherapeutic INR chronic atrial fibrillation on Coumadin Chronic diastolic CHF Chronic indwelling Hannah catheter NIDDM 2 Hypertension Unclear etiology of patient's supratherapeutic INR. Patient states his INR had been increasing over the last week or so, he has had multiple changes in the medications, one-point went down on his dose, then went up. States he last took Coumadin on Wednesday or Wednesday, 10/26 or 10/27. States his doctor told him to stop due to an elevated INR. He is unsure of how high it was. Hematuria began the day of presentation to the ER Patient received some vitamin K in the ED, hold home Coumadin, s/p Vit K on 10/29 and 10/30, FFP given 10/30 reviewed case with hematology, recommend no further vit k, avoiding FFP to prevent further volume overload Unclear etiology of his hematuria. He has an indwelling Hannah catheter and his supratherapeutic INR puts him at risk of hematuria secondary to trauma/supratherapeutic INR Has history of recurrent UTIs, UA and culture sent on 10/29, concerning for possible UTI, initiated antibiotics on 10/29 consulted urology - placed 3 way cath, irrigate as needed, pt did have brief obstruction from blood clot shortly after admission renal function worsening, nephrology consulted, suspect dehydration, possibly from obstruction as well Oxygen supplementation as needed, wean as tolerated review and confirm home medications, restart as appropriate Dispo: anticipate hospitalization > 2days Continue ICU level care today Time Spent Managing Pts Care (In Minutes): 35
[2021-10-31] MEDS: INSULIN -REGULAR HUMAN 50 UNIT/0.5 ML ML SQ SCH ×4 (07:30→21:00)
[2021-10-31] MEDS ORDERED: VITAMIN D 1000 UNIT TAB ONE (08:56)
[2021-10-31] MEDS: VITAMIN D 5,000 UNIT CAP PO SCH (10:00)
[2021-10-31] MEDS: LIDOCAINE/PRILOCAINE CREAM TOP SCH (10:02)
[2021-10-31] MEDS: AMPICILLIN/SULBACT 3 GM in NA CHLORIDE 0.9% 100 ML IVPB SCH ×2 (10:02→21:02)
[2021-10-31] MEDS: GENTAMICIN 80 MG/100 ML BAG 240 MG/300 ML BAG IV SCH (13:33)
--- NOTE | 2021-10-31 18:02 | P.PN ---
Date of Service: 10/31/21 Vital Signs Temp Pulse Resp BP Pulse Ox 98.6 F 97 H 16 99/52 L 97 10/31/21 16:00 10/31/21 16:00 10/31/21 16:00 10/31/21 16:00 10/31/21 16:00 Medications Acetaminophen (Acetaminophen 500 Mg Tab) 500 mg PO Q6H PRN PRN Reason: Pain scale 2-4 (Mild) Last Admin: 10/30/21 12:59 Dose: 500 mg Documented by: Cholecalciferol (Vitamin D 5,000 Unit Cap) 5,000 unit PO DAILY JELENA Last Admin: 10/31/21 10:00 Dose: 5,000 unit Documented by: Ampicillin Sodium/Sulbactam (Sodium 3 gm/ Sodium Chloride) 100 mls @ 200 mls/hr IVPB Q12HR JELENA Last Admin: 10/31/21 10:02 Dose: 100 mls Documented by: Gentamicin Sulfate/Sodium Chloride (Gentamicin 80 Mg/100 Ml Bag) 240 mg in 300 mls @ 272.727 mls/hr IV Q24H JELENA; Protocol Last Admin: 10/31/21 13:33 Dose: 300 mls Documented by: Insulin Human Regular (Insulin -Regular Human 50 Unit/0.5 Ml Ml) 0 unit SQ ACHS JELENA; Protocol Last Admin: 10/31/21 16:30 Dose: Not Given Documented by: Lidocaine/Prilocaine (Lidocaine/Prilocaine Cream) 1 appl TOP DAILY [facility] Stop: 11/05/21 23:50 Last Admin: 10/31/21 10:02 Dose: 1 appl Documented by: Ondansetron HCl (Ondansetron 4 Mg/2 Ml Vial) 4 mg IV Q6HP PRN PRN Reason: NAUSEA / VOMITING Sodium Chloride (Flush Normal Saline 10 Ml) 10 ml IV BID [facility] Last Admin: 10/31/21 10:02 Dose: 10 ml Documented by: Tramadol HCl (Tramadol Hcl 50 Mg Tab) 50 mg PO Q6H PRN PRN Reason: Pain scale 5-7 (Moderate) Last Admin: 10/30/21 11:52 Dose: 50 mg Documented by: Assessment/ Plan: Nephrology No dyspnea +FINK No chest pain Still with persistent penile pain with urination No acute events overnight Vitals, medications, blood work and imaging reviewed in the chart General: In no apparent distress, Oriented x3, Cooperative HEENT: Atraumatic Neck: Supple Respiratory: Diminished Cardiovascular: Regular rate/rhythm, Edema Gastrointestinal: Soft and benign, No guarding Musculoskeletal: No clubbing, No contractures Integumentary: No rashes, No cyanosis Neurological: Normal speech Blood work reviewed in the chart. Imagings Data: EXAM DESCRIPTION: CTAbdomen Pelvis Wo Contrast - 10/30/2021 8:25 a CLINICAL HISTORY: suprapubic pain, elevated INR, worse renal fxn COMPARISON: Abdomen Pelvis W Contrast dated 09/24/2021; Stone Protocol dated 04/22/2018; Abdomen Pelvis W Contrast dated 08/21/2016; Stone Protocol dated 05/24/2016 TECHNIQUE: CT of the abdomen and pelvis was performed. All CT scans are performed using dose optimization technique as appropriate and may include automated exposure control or mA/KV adjustment according to patient size. FINDINGS: Lower chest: Small left pleural effusion. Dependent atelectasis. Liver: No acute abnormality or suspicious lesions. Biliary: Cholecystectomy. Similar extrahepatic biliary ductal dilatation which may be related to the postcholecystectomy state. Stomach: Angel-en-Y gastric bypass. Duodenum: No significant focal abnormality. Pancreas: No significant abnormality. Spleen: No significant abnormality. Adrenal: No suspicious lesions. Kidney/ureter: No hydronephrosis. Nonobstructive right nephrolithiasis. Left renal cortical thinning. No hydronephrosis. Retroperitoneum: No retroperitoneal adenopathy. Vascular: IVC filter. Atherosclerosis. Bowel: No significant focal abnormality. Peritoneum: Abdominal wall laxity. Fat containing right inguinal hernia. Bladder: The bladder is mostly decompressed around a Hannah catheter. Gas within the bladder may be from instrumentation. Reproductive: No adnexal masses. Bones: No acute fracture. Degenerative changes are present in the hips and spine. Other: n/a IMPRESSION: No acute intra-abdominal or pelvic finding. Hannah catheter within the bladder. Gas within the bladder is presumably related to instrumentation. No hydronephrosis. EXAM DESCRIPTION: RAD - Chest Single View - 10/30/2021 5:52 am CLINICAL HISTORY: SOB COMPARISON: Chest Single View dated 09/30/2021; Chest Single View dated 09/24/2021; Chest Single View dated 12/13/2019; Chest Single View dated 07/12/2019 FINDINGS: Lines: None. Lungs: Worsened aeration of the lungs bilaterally with increasing diffuse opacities and prominence of the pulmonary vasculature. Pleural: Small effusions difficult to exclude. Cardiac: Cardiomegaly . Bones: No acute fractures. Other: IMPRESSION: Worsened pulmonary edema compared with 09/30/2021. EXAM DESCRIPTION: US - Renal Ultrasound-Complete - 10/30/2021 6:14 am CLINICAL HISTORY: KAYLAH COMPARISON: Abdomen Pelvis W Contrast dated 09/24/2021 FINDINGS: Limited by patient's body habitus. The right kidney measures 9.1 cm. No hydronephrosis. The left kidney was not visualized. IMPRESSION: Markedly limited due to body habitus. The left kidney was not visualized. No right-sided hydronephrosis. Conclusions/Impression: KAYLAH in the setting of hypotension. Gentamycin? CKD III Hematuria due to trauma -No NSAIDs -Monitor gent level Hyponatremia HTN with CKD/ CHF complicated by hypotension -No antihypertensives at this time -Consider midodrine prn Diastolic CHF, chronic -Low sodium diet DM II with hyperglycemia -RISS Moderate malnutrition Hypoalbuminemia -Consider Nepro Anemia in chronic illness Iron deficiency 14% -Monitor H&H -Consider IV iron prn
[2021-10-31] MEDS ORDERED: FENTANYL CITR 100 MCG/2 ML IV ONE (20:13)
[2021-10-31] MEDS ORDERED: FENTANYL CITR 100 MCG/2 ML ONE (20:48)
[2021-10-31] MEDS: NEPRO SHAKE 237 ML CAN PO SCH (21:01)
[2021-10-31] MEDS ORDERED: TRAMADOL HCL 50 MG TAB ONE (22:54)
[2021-10-31] MEDS: TRAMADOL HCL 50 MG TAB PO PRN (22:58)
[2021-11-01] MEDS ORDERED: SODIUM CHLORIDE IRRIG SOLUTION 3,000 ML IRR ONE ×3 (00:42→03:13)
[2021-11-01] MEDS ORDERED: MELATONIN 5 MG TABLET PO ONE ×2 (01:40→23:10)
[2021-11-01] MEDS: MELATONIN 5 MG TABLET PO PRN ×2 (01:41→23:15)
--- NOTE | 2021-11-01 01:53 | PN ---
Reason For Followup: Continued gross hematuria. Interval History: is a 81-year-old gentleman, morbidly obese with multiple medical comorb idities including chronic kidney disease with a long-term indwelling Hannah catheter and urinary reten tion with associated gross hematuria. His INR was significantly elevated and is slowly resolving dave k down to its baseline, but continues to be elevated at around 7 at this point. His gross hematuria has continued and the nurses have had some difficulty with manual irrigations. As such, I re-evaluat ed his circumstance this evening. He continues on Unasyn and gentamicin 240 mg as recommended. Evaluation: Significant gross hematuria emanating from around the urethra where the catheter is inse rted. I thus utilized peroxide to cleanse that away before then irrigating the catheter copiously wi th several liters of normal saline. A significant burden of clot was removed much of it that was for med, and in the end, the returning efflux of fluid and urine was clear. I thus connected him to cont inue his bladder irrigation using normal saline and was able to titrate it down to a very slow drip, about 1 drop per second and the efflux remained clear. Recommendations: 1.Continue the patient on CBI with normal saline to keep the urine light pink to clear for the next 24 hours while continued antimicrobial therapy and resolution of his INR back to baseline takes place . 2.Continue IV Unasyn but decrease the dosage of gentamicin provided given his chronic kidney disease that has worsened since its admission. I likely would only recommend 120 mg daily dosing as oppose to the 240 mg currently given. 3.Oxybutynin 5 mg p.o. t.i.d. for bladder spasms will assist with the management of the gross hematu ez. 4.There is a great likelihood that given the patient's morbid obesity and inability to be transporte d sufficiently to be evaluated in the office via an outpatient cystoscopy, we may need to do a bedsid e cystoscopy while he is an inpatient. We will await clarity of the urine without need for CBI in order to perform that procedure. 5.Over 1-1/2 hours time was spent in managing this consult. LEONEL/FELIL Voice ID: [id number] Report ID: [id number]
[2021-11-01] MEDS ORDERED: HYDROCODONE/APAP 5/325 MG TAB PO ONE (05:08)
[2021-11-01] MEDS ORDERED: HYDROCODONE/APAP 5/325 MG TAB ONE ×4 (05:36→21:13)
[2021-11-01 05:44] LABS: Absolute Lymphocytes (CBC) 1.2 K/uL (0.7-4.9); Hematocrit 32.1 % (39.6-49.0); Lymphocytes % 14.9 % (15.3-44.8); MPV 7.1 fL (7.6-11.3); RBC Red Blood Cell Count 3.42 M/uL (4.33-5.43)
[2021-11-01 05:45] LABS: Protime INR 3.57
[2021-11-01 05:59] LABS: Albumin 2.2 g/dL (3.4-5.0); Bilirubin Total 0.5 mg/dL (0.2-1.0); Potassium 3.9 mmol/L (3.5-5.1); Protein, Total 7.2 g/dL (6.4-8.2)
--- NOTE | 2021-11-01 06:12 | P.PN ---
Date of Service: 11/01/21 Subjective: Underwent copious irrigation of his bladder yesterday with light pink/clear return. Placed on continuous bladder irrigation last night as well. Reports some continued bladder spasms/pain head of penis as well No nausea/vomiting, breathing more comfortably No bowel movement, no abdominal pain Uncomfortable in non-Bariatric bed ROS: 10 point ROS as noted above, otherwise negative Physical exam GEN: Alert, oriented, NAD, morbidly obese HEENT: Normal conjunctiva, sclera anicteric CV: Regular rate and rhythm, chronic lymphedema Pulm: non-labored respirations on room air, at rest ABD: Soft, nontender, + hernias Integumentary: Slight oozing around penis/meatus Neuro: Normal speech, normal affect sims with light red/pinkish output Problem List Parker hematuria UTI KAYLAH on CKD 3 supratherapeutic INR chronic atrial fibrillation on Coumadin Chronic diastolic CHF Chronic indwelling Sims catheter NIDDM 2 Hypertension Unclear etiology of patient's supratherapeutic INR. Patient states his INR had been increasing over the last week or so, he has had multiple changes in the medications, one-point went down on his dose, then went up. States he last took Coumadin on Wednesday or Wednesday, 10/26 or 10/27. States his doctor told him to stop due to an elevated INR. He is unsure of how high it was. Hematuria began the day of presentation to the ER Patient received vitamin K in the ED prior to admission s/p Vit K on 10/29 and 10/30, FFP given 10/30 reviewed case with hematology on 10/31, agreed with no further vit k, avoiding FFP to prevent further volume overload INR improving Unclear etiology of his hematuria. He has an indwelling Sims catheter and his supratherapeutic INR puts him at risk of hematuria secondary to trauma/supratherapeutic INR Has history of recurrent UTIs, UA and culture sent on 10/29, concerning for possible UTI, initiated antibiotics on 10/29 consulted urology - placed 3 way cath, irrigate as needed, pt did have brief obstruction from blood clot shortly after admission Renal function is worsening and nephrology was consulted. May be multifactorial, possible intravascular depletion versus hypotension versus obstruction from blood clots possibly from obstruction as well Renal function has improved Oxygen supplementation as needed, wean as tolerated review and confirm home medications, restart as appropriate Dispo: anticipate hospitalization > 2days Continue ICU level care this morning Anticipate transfer to floor later today if stable Time Spent Managing Pts Care (In Minutes): 35
[2021-11-01] MEDS ORDERED: POTASSIUM CL SA 10 MEQ TAB PO ONE ×3 (06:45→09:13)
[2021-11-01] MEDS: INSULIN -REGULAR HUMAN 50 UNIT/0.5 ML ML SQ SCH ×4 (07:30→21:21)
--- NOTE | 2021-11-01 08:05 | RAD REPORT ---
EXAM DESCRIPTION: RAD - Chest Single View - 11/01/2021 7:19 am CLINICAL HISTORY: hypoxia, eval pulm edema/effusions COMPARISON: Chest Single View dated 10/30/2021; Chest Single View dated 09/30/2021; Chest Single View dated 09/24/2021; Chest Single View dated 12/13/2019; Abdomen Pelvis Wo Contrast dated 10/30/2021 FINDINGS: Lines: None. Lungs: Similar volume of bilateral pulmonary edema. Pleural: Small left effusion. Cardiac: Cardiomegaly. Bones: No acute fractures. Other: IMPRESSION: Similar pulmonary edema compared with 10/30/2021. Unchanged small left pleural effusion.
[2021-11-01] MEDS: NEPRO SHAKE 237 ML CAN PO SCH ×3 (09:00→21:00)
[2021-11-01] MEDS: LIDOCAINE/PRILOCAINE CREAM TOP SCH (09:09)
[2021-11-01] MEDS: AMPICILLIN/SULBACT 3 GM in NA CHLORIDE 0.9% 100 ML IVPB SCH ×2 (09:09→21:27)
[2021-11-01] MEDS: VITAMIN D 5,000 UNIT CAP PO SCH (09:11)
--- NOTE | 2021-11-01 09:38 | P.PN ---
Date of Service: 11/01/21 Vital Signs Temp Pulse Resp BP Pulse Ox 97.1 F 96 H 13 109/74 95 11/01/21 04:00 11/01/21 05:09 11/01/21 06:37 11/01/21 05:09 11/01/21 06:37 Medications Acetaminophen (Acetaminophen 500 Mg Tab) 500 mg PO Q6H PRN PRN Reason: Pain scale 2-4 (Mild) Last Admin: 10/30/21 12:59 Dose: 500 mg Documented by: Cholecalciferol (Vitamin D 5,000 Unit Cap) 5,000 unit PO DAILY [facility] Last Admin: 11/01/21 09:11 Dose: 5,000 unit Documented by: Docusate Sodium (Docusate Na 100 Mg Cap) 100 mg PO BID [facility] Enteral Nutritional Formula (Nepro Shake 237 Ml Can) 237 ml PO TID [facility] Last Admin: 11/01/21 09:00 Dose: Not Given Documented by: Ampicillin Sodium/Sulbactam (Sodium 3 gm/ Sodium Chloride) 100 mls @ 200 mls/hr IVPB Q12HR [facility] Last Admin: 11/01/21 09:09 Dose: 100 mls Documented by: Gentamicin Sulfate/Sodium Chloride (Gentamicin 80 Mg/100 Ml Bag) 240 mg in 300 mls @ 272.727 mls/hr IV Q24H [facility]; Protocol Last Admin: 10/31/21 13:33 Dose: 300 mls Documented by: Ferric Sodium Gluconate Complex 125 mg/ Sodium Chloride 110 mls @ 100 mls/hr IV DAILY [facility] Stop: 11/04/21 10:05 Insulin Human Regular (Insulin -Regular Human 50 Unit/0.5 Ml Ml) 0 unit SQ ACHS [facility]; Protocol Last Admin: 11/01/21 07:30 Dose: Not Given Documented by: Lidocaine/Prilocaine (Lidocaine/Prilocaine Cream) 1 appl TOP DAILY [facility] Stop: 11/05/21 23:50 Last Admin: 11/01/21 09:09 Dose: 1 appl Documented by: Melatonin (Melatonin 5 Mg Tablet) 5 mg PO BEDTIME PRN PRN PRN Reason: INSOMNIA Last Admin: 11/01/21 01:41 Dose: 5 mg Documented by: Ondansetron HCl (Ondansetron 4 Mg/2 Ml Vial) 4 mg IV Q6HP PRN PRN Reason: NAUSEA / VOMITING Oxybutynin Chloride (Oxybutynin Chloride 5 Mg Tab) 5 mg PO TID [facility] Sodium Chloride (Flush Normal Saline 10 Ml) 10 ml IV BID [facility] Last Admin: 11/01/21 09:11 Dose: 10 ml Documented by: Tramadol HCl (Tramadol Hcl 50 Mg Tab) 50 mg PO Q6H PRN PRN Reason: Pain scale 5-7 (Moderate) Last Admin: 10/31/21 22:58 Dose: 50 mg Documented by: Assessment/ Plan: Nephrology No dyspnea +FINK No chest pain. +Back pain +Appetite Penile pain improved with bladder irrigation. No acute events overnight Vitals, medications, blood work and imaging reviewed in the chart General: In no apparent distress, Oriented x3, Cooperative HEENT: Atraumatic Neck: Supple Respiratory: Diminished Cardiovascular: Regular rate/rhythm, Edema Gastrointestinal: Soft and benign, No guarding Musculoskeletal: No clubbing, No contractures Integumentary: No rashes, No cyanosis Neurological: Normal speech Blood work reviewed in the chart. Imagings Data: EXAM DESCRIPTION: CTAbdomen Pelvis Wo Contrast - 10/30/2021 8:25 a CLINICAL HISTORY: suprapubic pain, elevated INR, worse renal fxn COMPARISON: Abdomen Pelvis W Contrast dated 09/24/2021; Stone Protocol dated 04/22/2018; Abdomen Pelvis W Contrast dated 08/21/2016; [facility] Protocol dated 05/24/2016 TECHNIQUE: CT of the abdomen and pelvis was performed. All CT scans are performed using dose optimization technique as appropriate and may include automated exposure control or mA/KV adjustment according to patient size. FINDINGS: Lower chest: Small left pleural effusion. Dependent atelectasis. Liver: No acute abnormality or suspicious lesions. Biliary: Cholecystectomy. Similar extrahepatic biliary ductal dilatation which may be related to the postcholecystectomy state. Stomach: Angel-en-Y gastric bypass. Duodenum: No significant focal abnormality. Pancreas: No significant abnormality. Spleen: No significant abnormality. Adrenal: No suspicious lesions. Kidney/ureter: No hydronephrosis. Nonobstructive right nephrolithiasis. Left renal cortical thinning. No hydronephrosis. Retroperitoneum: No retroperitoneal adenopathy. Vascular: IVC filter. Atherosclerosis. Bowel: No significant focal abnormality. Peritoneum: Abdominal wall laxity. Fat containing right inguinal hernia. Bladder: The bladder is mostly decompressed around a Hannah catheter. Gas within the bladder may be from instrumentation. Reproductive: No adnexal masses. Bones: No acute fracture. Degenerative changes are present in the hips and spine. Other: n/a IMPRESSION: No acute intra-abdominal or pelvic finding. Hannah catheter within the bladder. Gas within the bladder is presumably related to instrumentation. No hydronephrosis. EXAM DESCRIPTION: RAD - Chest Single View - 10/30/2021 5:52 am CLINICAL HISTORY: SOB COMPARISON: Chest Single View dated 09/30/2021; Chest Single View dated 09/24/2021; Chest Single View dated 12/13/2019; Chest Single View dated 07/12/2019 FINDINGS: Lines: None. Lungs: Worsened aeration of the lungs bilaterally with increasing diffuse opacities and prominence of the pulmonary vasculature. Pleural: Small effusions difficult to exclude. Cardiac: Cardiomegaly . Bones: No acute fractures. Other: IMPRESSION: Worsened pulmonary edema compared with 09/30/2021. EXAM DESCRIPTION: US - Renal Ultrasound-Complete - 10/30/2021 6:14 am CLINICAL HISTORY: KAYLAH COMPARISON: Abdomen Pelvis W Contrast dated 09/24/2021 FINDINGS: Limited by patient's body habitus. The right kidney measures 9.1 cm. No hydronephrosis. The left kidney was not visualized. IMPRESSION: Markedly limited due to body habitus. The left kidney was not visualized. No right-sided hydronephrosis. Conclusions/Impression: KAYLAH in the setting of hypotension. Gentamycin? CKD III Hematuria due to trauma -No NSAIDs -Monitor gent level Hyponatremia HTN with CKD/ CHF complicated by hypotension -No antihypertensives at this time -Consider midodrine prn Diastolic CHF, chronic -Low sodium diet DM II with hyperglycemia -RISS Moderate malnutrition Hypoalbuminemia -Start Nepro Anemia in chronic illness Iron deficiency 14% -Monitor H&H -Start daily IV iron Case reviewed with Dr. Duarte
[2021-11-01] MEDS: HYDROCODONE/APAP 5/325 MG TAB PO PRN ×3 (10:15→21:20)
[2021-11-01] MEDS: SOD FERRIC GLUC COMPLX/SUCROSE 125 MG in NA CHLORIDE 0.9% 100 ML IV SCH (10:15)
[2021-11-01] MEDS: OXYBUTYNIN CHLORIDE 5 MG TAB PO SCH ×3 (10:15→21:00)
[2021-11-01] MEDS ORDERED: INSULIN -REGULAR HUMAN 50 UNIT/0.5 ML ML ONE ×3 (11:50→20:54)
[2021-11-01] MEDS: GENTAMICIN 80 MG/100 ML BAG 240 MG/300 ML BAG IV SCH (12:00)
[2021-11-01] MEDS ORDERED: HYDROMORPHONE HCL 0.5 MG/0.5 ML INJ ONE ×2 (17:21→23:09)
[2021-11-01] MEDS: HYDROMORPHONE HCL 0.5 MG/0.5 ML INJ IV PRN ×2 (17:21→23:14)
[2021-11-01] MEDS ORDERED: SODIUM CHLORIDE IRRIG SOLUTION 6,000 ML IRR ONE (21:04)
[2021-11-01] MEDS: OXYBUTYNIN ER 5 MG TAB PO ONE ×2 (21:11→21:25)
[2021-11-01] MEDS: DOCUSATE NA 100 MG CAP PO SCH (21:20)
[2021-11-02] MEDS ORDERED: SODIUM CHLORIDE IRRIG SOLUTION 3,000 ML IRR ONE ×3 (02:24→16:41)
[2021-11-02 05:27] LABS: Absolute Lymphocytes (CBC) 1.1 K/uL (0.7-4.9); Hematocrit 32.2 % (39.6-49.0); Lymphocytes % 17.8 % (15.3-44.8); MPV 6.9 fL (7.6-11.3); RBC Red Blood Cell Count 3.44 M/uL (4.33-5.43)
[2021-11-02 05:39] LABS: Protime INR 2.28
[2021-11-02] MEDS ORDERED: HYDROCODONE/APAP 5/325 MG TAB ONE ×3 (05:54→19:33)
[2021-11-02 05:55] LABS: Albumin 2.1 g/dL (3.4-5.0); Bilirubin Total 0.5 mg/dL (0.2-1.0); Potassium 3.6 mmol/L (3.5-5.1); Protein, Total 7.1 g/dL (6.4-8.2)
[2021-11-02] MEDS: HYDROCODONE/APAP 5/325 MG TAB PO PRN ×3 (05:56→19:35)
--- NOTE | 2021-11-02 06:34 | P.PN ---
Date of Service: 11/02/21 Subjective: less blood clots, output has been more clear pain improving, breathing improved - on room air no chest pain; reports ongoing lower back pain ROS: 10 point ROS as noted above, otherwise negative Physical exam GEN: Alert, oriented, NAD, morbidly obese HEENT: Normal conjunctiva, sclera anicteric CV: irregularly irregular rhythm/rate, chronic lymphedema Pulm: non-labored respirations on room air, at rest ABD: Soft, non-tender, +hernias Skin: Slight reddish-pink oozing around penis/meatus Neuro: Normal speech, normal affect sims with light pink output Problem List Parker hematuria UTI KAYLAH on CKD 3 supratherapeutic INR chronic atrial fibrillation on Coumadin Chronic diastolic CHF Chronic indwelling Sims catheter NIDDM 2 Hypertension Unclear etiology of patient's supratherapeutic INR. Patient states his INR had been increasing over the last week or so, he has had multiple changes in the medications, one-point went down on his dose, then went up. States he last took Coumadin on Wednesday or Wednesday, 10/26 or 10/27. States his doctor told him to stop due to an elevated INR. He is unsure of how high it was. Hematuria began the day of presentation to the ER Patient received vitamin K in the ED prior to admission s/p Vit K on 10/29 and 10/30, FFP given 10/30 reviewed case with hematology on 10/31, agreed with no further vit k, avoiding FFP to prevent further volume overload INR improving bleeding is slowing down Unclear etiology of his hematuria. He has an indwelling Sims catheter and his supratherapeutic INR puts him at risk of hematuria secondary to trauma/supratherapeutic INR Has history of recurrent UTIs, UA and culture sent on 10/29, concerning for possible UTI, initiated antibiotics on 10/29 Urine culture grew MRSA, discussed with ID - suspect this is colonization. Patient has been improving, remains afebrile, resolution of leukocytosis on Unasyn + gent, recommended no change in regimen consulted urology - placed 3 way cath, irrigate as needed, pt did have brief obstruction from blood clot shortly after admission Renal function initially worsened and nephrology was consulted. May be multifactorial, possible intravascular depletion versus hypotension versus obstruction from blood clots possibly from obstruction as well Now improved, nearly back to baseline Oxygen supplementation as needed, wean as tolerated Dispo: anticipate hospitalization > 2days can be telemetry bed, but requires frequent monitoring, recommend no more than 3:1 nurse:patient ratio with this level of care Time Spent Managing Pts Care (In Minutes): 35
[2021-11-02] MEDS ORDERED: POTASSIUM CL SA 10 MEQ TAB PO ONE ×2 (06:37→06:44)
[2021-11-02] MEDS ORDERED: INSULIN -REGULAR HUMAN 50 UNIT/0.5 ML ML ONE ×2 (07:37→11:29)
[2021-11-02] MEDS: INSULIN -REGULAR HUMAN 50 UNIT/0.5 ML ML SQ SCH ×4 (07:38→20:19)
[2021-11-02] MEDS: NEPRO SHAKE 237 ML CAN PO SCH ×3 (09:00→20:19)
[2021-11-02] MEDS: DOCUSATE NA 100 MG CAP PO SCH ×2 (09:24→20:19)
[2021-11-02] MEDS: LIDOCAINE/PRILOCAINE CREAM TOP SCH (09:24)
[2021-11-02] MEDS: AMPICILLIN/SULBACT 3 GM in NA CHLORIDE 0.9% 100 ML IVPB SCH ×2 (09:24→20:19)
[2021-11-02] MEDS: OXYBUTYNIN CHLORIDE 5 MG TAB PO SCH ×3 (09:24→20:19)
[2021-11-02] MEDS: VITAMIN D 5,000 UNIT CAP PO SCH (09:25)
[2021-11-02] MEDS: HYDROMORPHONE HCL 0.5 MG/0.5 ML INJ IV PRN ×3 (09:36→23:52)
[2021-11-02] MEDS ORDERED: HYDROMORPHONE HCL 0.5 MG/0.5 ML INJ ONE ×3 (09:36→23:40)
[2021-11-02] MEDS: SOD FERRIC GLUC COMPLX/SUCROSE 125 MG in NA CHLORIDE 0.9% 100 ML IV SCH (10:13)
[2021-11-02 10:14] LABS: Gentamicin Level, Trough 0.8 ug/mL (0-2.0); Gentamicin Once Daily Level 0.8 ug/mL (<5.5)
[2021-11-02] MEDS: GENTAMICIN 80 MG/100 ML BAG 240 MG/300 ML BAG IV SCH (12:40)
--- NOTE | 2021-11-02 14:24 | CON ---
History Of Present Illness: This is a 81-year-old male. I was consulted for evaluation of MRSA in t he urine. The patient coming in with brandy hematuria from his home where he was noted to have bloody urine in his Hannah bag, which he has for more than 10 years. The patient has been having Hannah cath eter changed on a monthly basis. His INR was also found to be elevated. The patient complains of pa in in his back for which he is getting Dilaudid. The patient denies any headache, nausea, vomiting, chest pain, abdominal pain, constipation, or diarrhea. No burning urination. Currently getting eddy cation of continuous irrigation of his bladder for bleeding as per Urology recommendation. The patie nt has multiple medical problems. Past Medical History: Includes congestive heart failure, hypertension, lymphedema of the lower extre mity, chronic indwelling urinary catheter for 10 years, spinal stenosis of the back causing him chron ic back pain, history of DVT, PE, chronic anticoagulation due to history of multiple PEs, GERD, iron deficiency anemia, large left-sided abdominal wall hernia, moderate size right-sided abdominal wall h ernia below the pannus, morbid obesity, cholecystectomy, IVC Land[place] filter placement, history of stomach stapling, history of left knee surgery, bilateral shoulder repairs. Social History: Nonsmoker, nondrinker. Family History: Heart problem, hypertension, GI disease. Medications: The patient is currently getting Unasyn and gentamicin. Allergies: SULFA DRUGS CAUSING HIM TO HAVE RASH. Review of Systems: A 10-point review was performed. Physical Examination: General: This is a 81-year-old male, lying in ER bed, not in any acute cardiopulmonary distress. Vital Signs: Temperature 98.3, pulse 95, respirations 16, blood pressure 134/91. HEENT: Unremarkable. Neck: Supple. Lungs: Basal crackles. Heart: S1, S2. Regular. Abdomen: Soft. Bowel sounds present. Trauma to the ureteral meatus noted. Hannah catheter in place . Extremity: 4+ nonpitting edema. Laboratory Data: Shows WBC 6.4 down from 14.2, hemoglobin 10.7, platelets are 279. Chemistry shows sodium 140, potassium 3.6, chloride 102, bicarb 32, BUN 23, creatinine 1.1, glucose is 192. Albumin level is 2.1. Procalcitonin is 0.9. Micro data; blood cultures are negative for 24 hours. Urine cu ltures growing MRSA most likely colonization as the patient is improving. Assessment And Plan: Urine cultures growing in a 81-year-old male with a 10-year history of Hannah ca theter, methicillin-resistant Staphylococcus aureus more than 100,000 with brandy hematuria, most like ly colonization as the patient has been improving on Unasyn and gentamicin. We will continue current treatment. If not improved, consider switching gentamicin with vancomycin. Multiple medical proble ms including morbid obesity, history of pulmonary embolism, lymphedema, severe protein-calorie malnou rishment with morbid obesity, congestive heart failure, hypertension. Continue current treatment. N o other recommendation at this time. Thank you Dr. Duarte for consult. ALEXEY/MEGHANA Voice ID: [id number] Report ID: [id number]
[2021-11-02] MEDS ORDERED: MELATONIN 5 MG TABLET PO ONE (20:12)
[2021-11-02] MEDS: MELATONIN 5 MG TABLET PO PRN (20:18)
[2021-11-03] MEDS ORDERED: SODIUM CHLORIDE IRRIG SOLUTION 3,000 ML IRR ONE ×2 (00:48→10:35)
[2021-11-03] MEDS: SODIUM CHLORIDE IRRIG SOLUTION 3,000 ML BAG IRR SCH ×2 (02:33→10:35)
[2021-11-03] MEDS: HYDROCODONE/APAP 5/325 MG TAB PO PRN ×3 (02:36→21:33)
[2021-11-03] MEDS ORDERED: HYDROCODONE/APAP 5/325 MG TAB ONE ×3 (02:36→14:17)
[2021-11-03 04:24] LABS: Absolute Lymphocytes (CBC) 1.4 K/uL (0.7-4.9); Hematocrit 33.3 % (39.6-49.0); Lymphocytes % 20.4 % (15.3-44.8); RBC Red Blood Cell Count 3.57 M/uL (4.33-5.43)
[2021-11-03 04:26] LABS: Protime INR 1.73
[2021-11-03 04:44] LABS: Albumin 2.1 g/dL (3.4-5.0); Bilirubin Total 0.6 mg/dL (0.2-1.0); Potassium 3.7 mmol/L (3.5-5.1); Protein, Total 7.1 g/dL (6.4-8.2)
[2021-11-03] MEDS ORDERED: POTASSIUM 25 MEQ EFFERV TAB PO ONE (06:23)
[2021-11-03] MEDS ORDERED: POTASSIUM 25 MEQ EFFERV TAB ONE (06:27)
[2021-11-03] MEDS: INSULIN -REGULAR HUMAN 50 UNIT/0.5 ML ML SQ SCH ×4 (07:30→21:00)
[2021-11-03] MEDS ORDERED: PANTOPRAZOLE 40MG TABLET PO ONE (07:57)
[2021-11-03] MEDS ORDERED: HYDROMORPHONE HCL 0.5 MG/0.5 ML INJ ONE ×2 (08:20→16:27)
[2021-11-03] MEDS: HYDROMORPHONE HCL 0.5 MG/0.5 ML INJ IV PRN ×2 (08:20→16:27)
[2021-11-03] MEDS: DILTIAZEM HCL 120 MG SR CAP PO SCH ×2 (08:21→21:31)
[2021-11-03] MEDS: LIDOCAINE/PRILOCAINE CREAM TOP SCH (08:21)
[2021-11-03] MEDS: SERTRALINE HCL 50 MG TAB PO SCH (08:21)
[2021-11-03] MEDS: NEPRO SHAKE 237 ML CAN PO SCH ×3 (08:21→21:00)
[2021-11-03] MEDS: PANTOPRAZOLE 40MG TABLET PO SCH (08:22)
[2021-11-03] MEDS: VITAMIN D 5,000 UNIT CAP PO SCH (08:22)
[2021-11-03] MEDS: OXYBUTYNIN CHLORIDE 5 MG TAB PO SCH ×3 (08:22→21:30)
[2021-11-03] MEDS: AMPICILLIN/SULBACT 3 GM in NA CHLORIDE 0.9% 100 ML IVPB SCH ×2 (08:23→21:31)
[2021-11-03] MEDS: DOCUSATE NA 100 MG CAP PO SCH ×2 (08:23→21:30)
[2021-11-03] MEDS: SOD FERRIC GLUC COMPLX/SUCROSE 125 MG in NA CHLORIDE 0.9% 100 ML IV SCH (09:00)
--- NOTE | 2021-11-03 10:11 | P.PN ---
Date of Service: 11/03/21 Subjective: Continues with minimal/small blood clots, output mostly clear, lightly pink- tinged Pain improving, but continues with low back pain and bladder spasms blood pressure improved / more stable Intermittent tachycardia On continuous bladder irrigation, nursing staff has been able to decrease the rate since yesterday afternoon Patient still occasional. Reports feeling pressure feeling as though clot is blocking the Sims catheter, however when manually flushed there is no resistance ROS: 10 point ROS as noted above, otherwise negative Physical exam GEN: Alert, oriented, NAD, morbidly obese HEENT: Normal conjunctiva, sclera anicteric CV: irregularly irregular rhythm/rate, chronic lymphedema Pulm: non-labored respirations on room air, at rest ABD: Soft, non-tender, +hernias Skin: no further oozing around meatus Neuro: Normal speech, normal affect sims with clear (Very light pink tinged output) Problem List Parker hematuria UTI KAYLAH on CKD 3 supratherapeutic INR chronic atrial fibrillation on Coumadin Chronic diastolic CHF Chronic indwelling Sims catheter NIDDM 2 Hypertension Unclear etiology of patient's supratherapeutic INR. Patient states his INR had been increasing over the last week or so, he has had multiple changes in the medications, one-point went down on his dose, then went up. States he last took Coumadin on Wednesday or Wednesday, 10/26 or 10/27. States his doctor told him to stop due to an elevated INR. He is unsure of how high it was. Hematuria began the day of presentation to the ER Patient received vitamin K in the ED prior to admission s/p Vit K on 10/29 and 10/30, FFP given 10/30 reviewed case with hematology on 10/31, agreed with no further vit k, avoiding FFP to prevent further volume overload INR improving bleeding has slowed significantly Hemoglobin stable Unclear etiology of hematuria. HIndwelling Sims catheter and his supratherapeutic INR puts him at risk of hematuria secondary to trauma/supratherapeutic INR Has history of recurrent UTIs, UA and culture sent on 10/29, concerning for possible UTI, initiated antibiotics on 10/29 Urine culture grew MRSA, discussed with ID - suspect this is colonization. Patient has been improving, remains afebrile, resolution of leukocytosis on Unasyn + gent, recommended no change in regimen unless he worsens/makes no further improvement. Can consider changing gentamicin to vancomycin in that situation consulted urology - placed 3 way cath, initially started. Irrigation, however too many blood clots obstructing the catheter, patient was started on continuous bladder irrigation Flow rate of the irrigation continues to decrease, will discuss with urology, goal is to wean off continuous irrigation, hopefully in the next 24 to 48 hours, will discuss further when to restart Coumadin/bridge with Lovenox Anticipating achieving a therapeutic INR may be difficult given the amount of vitamin K he received earlier in his hospitalization, as it may still be an effect for several days/weeks Possible cystoscopy during this admission versus outpatient Renal function initially worsened and nephrology was consulted. May be multifactorial, possible intravascular depletion versus hypotension versus obstruction from blood clots possibly from obstruction as well Now improved, back to baseline Patient has been breathing more comfortably on room air for 2 days Restart Cardizem, monitor blood pressure and heart rate, possibly restarting home metoprolol at a lower dose and uptitrating as tolerated Dispo: anticipate hospitalization > 2days Time Spent Managing Pts Care (In Minutes): 35
--- NOTE | 2021-11-03 10:59 | P.PN ---
Date of Service: 11/03/21 Vital Signs Temp Pulse Resp BP Pulse Ox 97.0 F 102 H 15 139/95 H 96 11/03/21 08:00 11/03/21 08:00 11/03/21 08:00 11/03/21 08:00 11/03/21 08:00 Medications Acetaminophen (Acetaminophen 500 Mg Tab) 500 mg PO Q6H PRN PRN Reason: Pain scale 2-4 (Mild) Last Admin: 10/30/21 12:59 Dose: 500 mg Documented by: Hydrocodone Bitart/Acetaminophen (Hydrocodone/Apap 5/325 Mg Tab) 1 tab PO Q6H PRN PRN Reason: Pain scale 5-7 (Moderate) Last Admin: 11/03/21 02:36 Dose: 1 tab Documented by: Cholecalciferol (Vitamin D 5,000 Unit Cap) 5,000 unit PO DAILY [facility] Last Admin: 11/03/21 08:22 Dose: 5,000 unit Documented by: Diltiazem HCl (Diltiazem Hcl 120 Mg Sr Cap) 120 mg PO BID [facility] Last Admin: 11/03/21 08:21 Dose: 120 mg Documented by: Docusate Sodium (Docusate Na 100 Mg Cap) 100 mg PO BID [facility] Last Admin: 11/03/21 08:23 Dose: 100 mg Documented by: Enteral Nutritional Formula (Nepro Shake 237 Ml Can) 237 ml PO TID [facility] Last Admin: 11/03/21 08:21 Dose: 237 ml Documented by: Hydromorphone HCl (Hydromorphone Hcl 0.5 Mg/0.5 Ml Inj) 0.5 mg IV Q8H PRN PRN Reason: Pain scale 8-10 (Severe) Last Admin: 11/03/21 08:20 Dose: 0.5 mg Documented by: Ampicillin Sodium/Sulbactam (Sodium 3 gm/ Sodium Chloride) 100 mls @ 200 mls/hr IVPB Q12HR [facility] Last Admin: 11/03/21 08:23 Dose: 100 mls Documented by: Ferric Sodium Gluconate Complex 125 mg/ Sodium Chloride 110 mls @ 100 mls/hr IV DAILY [facility] Stop: 11/04/21 10:05 Last Admin: 11/03/21 09:00 Dose: 110 mls Documented by: Gentamicin Sulfate/Sodium Chloride (Gentamicin 80 Mg/100 Ml Bag) 240 mg in 300 mls @ 272.727 mls/hr IV Q24H JELENA; Protocol Stop: 11/05/21 13:00 Last Admin: 11/02/21 12:40 Dose: 300 mls Documented by: Insulin Human Regular (Insulin -Regular Human 50 Unit/0.5 Ml Ml) 0 unit SQ ACHS JELENA; Protocol Last Admin: 11/03/21 07:30 Dose: Not Given Documented by: Lidocaine/Prilocaine (Lidocaine/Prilocaine Cream) 1 appl TOP DAILY [facility] Stop: 11/05/21 23:50 Last Admin: 11/03/21 08:21 Dose: 1 appl Documented by: Melatonin (Melatonin 5 Mg Tablet) 5 mg PO BEDTIME PRN PRN PRN Reason: INSOMNIA Last Admin: 11/02/21 20:18 Dose: 5 mg Documented by: Ondansetron HCl (Ondansetron 4 Mg/2 Ml Vial) 4 mg IV Q6HP PRN PRN Reason: NAUSEA / VOMITING Oxybutynin Chloride (Oxybutynin Chloride 5 Mg Tab) 5 mg PO TID [facility] Last Admin: 11/03/21 08:22 Dose: 5 mg Documented by: Pantoprazole Sodium (Pantoprazole 40mg Tablet) 40 mg PO DAILY [facility]; Protocol Last Admin: 11/03/21 08:22 Dose: 40 mg Documented by: Sertraline HCl (Sertraline Hcl 50 Mg Tab) 75 mg PO DAILY [facility] Last Admin: 11/03/21 08:21 Dose: 75 mg Documented by: Sodium Chloride (Flush Normal Saline 10 Ml) 10 ml IV BID [facility] Last Admin: 11/03/21 08:22 Dose: 10 ml Documented by: Sodium Chloride (Sodium Chloride Irrig Solution 3,000 Ml Bag) 0 ml IRR CONT [facility] Last Admin: 11/03/21 10:35 Dose: 3,000 ml Documented by: Assessment/ Plan: Nephrology No dyspnea +FINK No chest pain. Feeling better today No acute events overnight Vitals, medications, blood work and imaging reviewed in the chart General: In no apparent distress, Oriented x3, Cooperative HEENT: Atraumatic Neck: Supple Respiratory: Diminished Cardiovascular: Regular rate/rhythm, Edema Gastrointestinal: Soft and benign, No guarding Musculoskeletal: No clubbing, No contractures Integumentary: No rashes, No cyanosis Neurological: Normal speech Blood work reviewed in the chart. Imagings Data: EXAM DESCRIPTION: CTAbdomen Pelvis Wo Contrast - 10/30/2021 8:25 a CLINICAL HISTORY: suprapubic pain, elevated INR, worse renal fxn COMPARISON: Abdomen Pelvis W Contrast dated 09/24/2021; Stone Protocol dated 04/22/2018; Abdomen Pelvis W Contrast dated 08/21/2016; [facility] Protocol dated 05/24/2016 TECHNIQUE: CT of the abdomen and pelvis was performed. All CT scans are performed using dose optimization technique as appropriate and may include automated exposure control or mA/KV adjustment according to patient size. FINDINGS: Lower chest: Small left pleural effusion. Dependent atelectasis. Liver: No acute abnormality or suspicious lesions. Biliary: Cholecystectomy. Similar extrahepatic biliary ductal dilatation which may be related to the postcholecystectomy state. Stomach: Angel-en-Y gastric bypass. Duodenum: No significant focal abnormality. Pancreas: No significant abnormality. Spleen: No significant abnormality. Adrenal: No suspicious lesions. Kidney/ureter: No hydronephrosis. Nonobstructive right nephrolithiasis. Left renal cortical thinning. No hydronephrosis. Retroperitoneum: No retroperitoneal adenopathy. Vascular: IVC filter. Atherosclerosis. Bowel: No significant focal abnormality. Peritoneum: Abdominal wall laxity. Fat containing right inguinal hernia. Bladder: The bladder is mostly decompressed around a Hannah catheter. Gas within the bladder may be from instrumentation. Reproductive: No adnexal masses. Bones: No acute fracture. Degenerative changes are present in the hips and spine. Other: n/a IMPRESSION: No acute intra-abdominal or pelvic finding. Hannah catheter within the bladder. Gas within the bladder is presumably related to instrumentation. No hydronephrosis. EXAM DESCRIPTION: RAD - Chest Single View - 10/30/2021 5:52 am CLINICAL HISTORY: SOB COMPARISON: Chest Single View dated 09/30/2021; Chest Single View dated 09/24/2021; Chest Single View dated 12/13/2019; Chest Single View dated 07/12/2019 FINDINGS: Lines: None. Lungs: Worsened aeration of the lungs bilaterally with increasing diffuse opacities and prominence of the pulmonary vasculature. Pleural: Small effusions difficult to exclude. Cardiac: Cardiomegaly . Bones: No acute fractures. Other: IMPRESSION: Worsened pulmonary edema compared with 09/30/2021. EXAM DESCRIPTION: US - Renal Ultrasound-Complete - 10/30/2021 6:14 am CLINICAL HISTORY: KAYLAH COMPARISON: Abdomen Pelvis W Contrast dated 09/24/2021 FINDINGS: Limited by patient's body habitus. The right kidney measures 9.1 cm. No hydronephrosis. The left kidney was not visualized. IMPRESSION: Markedly limited due to body habitus. The left kidney was not visualized. No right-sided hydronephrosis. Conclusions/Impression: KAYLAH in the setting of hypotension. CKD III Hematuria due to trauma -No NSAIDs -Monitor gent level Hyponatremia HTN with CKD/ CHF complicated by hypotension -Continue Diltiazem Diastolic CHF, chronic -Low sodium diet DM II with hyperglycemia -RISS Moderate malnutrition Hypoalbuminemia -Continue Nepro Anemia in chronic illness Iron deficiency 14% -Monitor H&H -Continue daily IV iron
[2021-11-03] MEDS ORDERED: INSULIN -REGULAR HUMAN 50 UNIT/0.5 ML ML ONE (11:33)
--- NOTE | 2021-11-03 11:47 | P.PN ---
Subjective Date of Service: 11/03/21 Chief Complaint: Parker hematuria, supratherapeutic INR Patient seen examined at bedside, discussed results of urine culture. Advised patient that are like to Dc the Unasyn and gentamicin however patient stated he would like to stay on these IV antibiotics until he is able to speak with his urologist. Review of Systems 10-point ROS is otherwise unremarkable Physical Examination - Vital Signs Temperature: 97.0 F Blood Pressure: 139/95 Pulse: 102 Respirations: 15 Pulse Ox (%): 96 - Physical Exam General: Obese HEENT: Atraumatic, Normocephalic Neck: Supple, JVD not distended Respiratory: Clear to auscultation bilaterally, Normal air movement Cardiovascular: No edema, Regular rate/rhythm Gastrointestinal: Other (Several abdominal hernia as) Urinary: Hannah catheter Assessment And Plan - Plan Assessment/plan UTI Urine culture obtained on 10/29 growing methicillin-resistant Staphylococcus aureus. Suspect colonization as patient has had indwelling Hannah catheter for the past 10 years in the history of multiple UTIs. Patient empirically placed on gentamicinand unasyn, and has been improving. Can continue this treatment. Advised patient out like to take him off the IV antibiotics and put him on something that would cover MRSA however he stated he would like to stay on IV antibiotics. Parker hematuria Urology following, continue bladder irrigation. Morbid obesity Anemia Protein caloric malnutrition In CHF Diabetes -medical management per primary team -plan of care discussed with Dr. Estrada -thank you for consultation
[2021-11-03 11:55] LABS: Gentamicin Level, Trough 1.9 ug/mL (0-2.0); Gentamicin Once Daily Level 1.9 ug/mL (<5.5)
[2021-11-03] MEDS: GENTAMICIN 80 MG/100 ML BAG 240 MG/300 ML BAG IV SCH (12:30)
[2021-11-03] MEDS ORDERED: Gentamicin Inj 240 MG in NA CHLORIDE 0.9% 100 ML IV SCH (13:45)
--- NOTE | 2021-11-03 15:06 | CON ---
Reason For Consultation: Followup gross hematuria, need for evaluation for intravesical lesion/bladd er cancer in the setting of morbid obesity and immobility. History Of Present Illness: is a 81-year-old gentleman, who is morbidly obese and largely immobile and bed-bound with a chronically indwelling Hannah catheter for over a decade, who presented with gross hematuria associated with an INR over 9 and potential urinary infection versus colonizati on. He has been treated with Unasyn and gentamicin IV therapy for the last several days and eventual ly required CBI over the weekend, but his urine has now cleared on slow drip CBI. I thus saw him davey griffiths for procedural evaluation as follows: Bladder Irrigation Procedure Note: I disconnected the catheter from its drainage tubing and halted t he CBI in order to irrigate the bladder with a 60 cc catheter tip syringe and normal saline copiously . No significant clots were obtained, and there was no fresh gross hematuria at this time. As a res ult, I reconnected the catheter to gravity drainage and clamped the CBI. I then left the CBI clamped over the course of the next hour before returning for followup evaluation. On followup evaluation, his urine was yellow without any significant gross hematuria evident. As a r esult, I then recommended bedside cystoscopy be performed to remove the need for subsequent clinic cy stoscopy evaluation or operative evaluation if possible. Bedside Cystoscopic Evaluation: The patient's pannus was elevated from covering his genitalia using tape and several hands of manual manipulation as well. I then prepped around the meatus and the glan s penis as well as the surrounding genitalia with Betadine and draped the area off in standard fashio n. I then applied a lidocaine Uro-Jet intraurethrally for local anesthesia. After about a minute to allow the anesthesia to settle in place, I then utilized a flexible cystoscope and normal saline irr igation to traverse the urethra and into the bladder. Of note, the prostatic urethra was somewhat di srupted in appearance likely due to catheter associated trauma associated with the gross hematuria an d multiple irrigation attempts performed. However, no urethral strictures or prostatic urethral lesi ons were noted. I then entered the bladder, which was then only partially filled and surveyed. Atte mpts to fill his bladder more resulted in efflux of the saline irrigant around the scope and into the surrounding drapery. The distal and midportion of the bladder were able to be distended adequately in order to visualize it, and no papillary mucosal lesions, foreign bodies or stones were noted. I t hen entered the portion of the bladder that was severely contracted within the dome associated with w hat appeared to potentially be a dome diverticulum, and I entered that diverticular area and surveyed it as well. No mucosal lesions were present there. Despite the excessive contracture of the bladde r in that region, the mucosa largely appeared normal and there was no large bladder tumor evident. A s a result, with his bladder as distended as possible, I then did a retroflexion view and surveyed th e exit from the bladder at the bladder neck. Again, no mucosal lesions or stones were noted. As a r esult, I surveyed the prostatic urethra and along through the distal pendulous urethra again on the w ay out. The patient tolerated the procedure well. I then replaced a 24-Brazilian 3-way Hannah catheter into his bladder in order to have the option to perform CBI should gross hematuria again reason. The 24-Brazilian 3-way catheter was placed into his bladder with ease, and 20 cc of sterile water was place d in the balloon. I then placed the catheter to a catheter securing device and reconnected CBI, thou gh it was turned off/clamped. The patient was then returned to a semi-recumbent position. There wer e no complications and he tolerated the procedure well. Assessment And Recommendations: Gross hematuria likely secondary to chronic colonization/infection i n the setting of severely elevated INR. With no visible bladder tumor noted, the only remaining evaluation is that of his upper tracts. He m ay eventually benefit from a CT urogram with delayed phase imaging to confirm the absence of any uppe r tract urothelial lesions. Otherwise, while he remains an inpatient, I recommend he continue on the Unasyn, and perhaps instead of the gentamicin, be switched to Bactrim. Once he is ready for dischar , he can be discharged on Bactrim Double Strength tablets twice daily for the completion of a 14-da y course of total antimicrobial therapy. Subsequent followup to determine catheter exchanges and fol lowup surveillance can be made as an outpatient, but it may be to his benefit to have the CT urography comp leted before he is discharged. LEONEL/MODL Voice ID: [id number] Report ID: [id number]
[2021-11-03] MEDS: MELATONIN 5 MG TABLET PO PRN (21:33)
[2021-11-04] MEDS: HYDROMORPHONE HCL 0.5 MG/0.5 ML INJ IV PRN ×3 (00:06→16:50)
[2021-11-04 04:04] LABS: Protime INR 1.52
[2021-11-04 04:05] LABS: Hematocrit 31.5 % (39.6-49.0); MPV 6.8 fL (7.6-11.3); RBC Red Blood Cell Count 3.36 M/uL (4.33-5.43)
[2021-11-04 04:19] LABS: Magnesium 1.9 mg/dL (1.8-2.4); Potassium 3.5 mmol/L (3.5-5.1)
[2021-11-04] MEDS: HYDROCODONE/APAP 5/325 MG TAB PO PRN ×3 (04:20→20:43)
[2021-11-04] MEDS: INSULIN -REGULAR HUMAN 50 UNIT/0.5 ML ML SQ SCH ×4 (07:30→20:44)
[2021-11-04] MEDS: NEPRO SHAKE 237 ML CAN PO SCH ×3 (08:28→20:45)
[2021-11-04] MEDS: DOCUSATE NA 100 MG CAP PO SCH ×2 (08:28→20:43)
[2021-11-04] MEDS: AMPICILLIN/SULBACT 3 GM in NA CHLORIDE 0.9% 100 ML IVPB SCH ×2 (08:28→20:44)
[2021-11-04] MEDS: VITAMIN D 5,000 UNIT CAP PO SCH (08:29)
[2021-11-04] MEDS: SERTRALINE HCL 50 MG TAB PO SCH (08:29)
[2021-11-04] MEDS: OXYBUTYNIN CHLORIDE 5 MG TAB PO SCH ×3 (08:29→20:43)
[2021-11-04] MEDS: DILTIAZEM HCL 120 MG SR CAP PO SCH ×2 (08:29→20:42)
[2021-11-04] MEDS: PANTOPRAZOLE 40MG TABLET PO SCH (08:29)
[2021-11-04] MEDS: LIDOCAINE/PRILOCAINE CREAM TOP SCH (08:30)
[2021-11-04] MEDS ORDERED: POTASSIUM CL SA 10 MEQ TAB PO ONE (09:00)
[2021-11-04] MEDS: SOD FERRIC GLUC COMPLX/SUCROSE 125 MG in NA CHLORIDE 0.9% 100 ML IV SCH (09:06)
--- NOTE | 2021-11-04 11:13 | P.PN ---
Subjective Date of Service: 11/04/21 Chief Complaint: Parker hematuria, supratherapeutic INR Patient seen examined at bedside, no acute events. Review of Systems 10-point ROS is otherwise unremarkable Physical Examination - Vital Signs Temperature: 97.2 F Blood Pressure: 124/81 Pulse: 110 Respirations: 18 Pulse Ox (%): 97 Assessment And Plan - Plan Physical exam General: Obese HEENT: Atraumatic, Normocephalic Neck: Supple, JVD not distended Respiratory: Clear to auscultation bilaterally, Normal air movement Cardiovascular: No edema, Regular rate/rhythm Gastrointestinal: Other (Several abdominal hernias) Assessment/plan UTI Urine culture obtained on 10/29 growing methicillin-resistant Staphylococcus aureus. Suspect colonization as patient has had indwelling Hannah catheter for the past 10 years in the history of multiple UTIs. Patient empirically placed on gentamicin and unasyn per urology recommendations, and has been improving. Patient is status post bedside cystoscopic examination performed on 11/03. No lesions/tumor is identified. Urology recommends discontinuing gentamicin and placing patient on oral Bactrim+ unasyn. Also recommended discharging patient on monotherapy oral Bactrim for total antibiotic duration of 14 days. Agree with Urology recommendations. Patient initially started IV antibiotics on 10/30, has a antibiotic completion date of 11/13. Recommend following up with Urology outpatient. Parker hematuria Urology following, likely secondary to elevated INR and cystitis. Morbid obesity Anemia Protein caloric malnutrition In CHF Diabetes -medical management per primary team -plan of care discussed with Dr. Estrada -thank you for consultation Physician Review Additional Text: Problem List Parker hematuria chronic atrial fibrillation on Coumadin Possible UTI CKD 3 Chronic diastolic CHF Chronic indwelling Hannah catheter NIDDM 2 Hypertension Unclear etiology of patient's supratherapeutic INR. He has been on chronic Coumadin, and unable to get accurate history from him at this time secondary to pain medication he received Unclear if he has been taking any extra medication by mistake, new medications, or any changes in his medications Patient received some vitamin K in the ED, hold home Coumadin Unclear etiology of his hematuria. He has an indwelling Hannah catheter and his supratherapeutic INR puts him at risk of hematuria secondary to trauma/supratherapeutic INR Has history of recurrent UTIs, will obtain UA and urine culture, he has been afebrile no leukocytosis repeat CBC consult urology Renal function appears to be near baseline, will consult nephrology if worsens Oxygen supplementation as needed review and confirm home medications, restart as appropriate Physical therapy ordered patient initially difficult to arouse, unable to get accurate history. Blood pressure now in the low end 90s/50s Suspect this is secondary to pain medication We will recheck CBC to evaluate any further drop in hemoglobin, check pro- Terence/CRP monitor in ICU today/overnight Dispo: anticipate hospitalization > 2days Time Spent Managing Pts Care (In Minutes): 35
--- NOTE | 2021-11-04 17:12 | P.PN ---
Subjective Date of Service: 11/04/21 Chief Complaint: Parker hematuria, supratherapeutic INR No new complaints. Hematuria has cleared. Urine is sera color. Physical Examination - Vital Signs Temperature: 97.5 F Blood Pressure: 125/66 Pulse: 109 Respirations: 18 Pulse Ox (%): 97 Assessment And Plan - Plan Physical exam GEN: Alert, oriented, NAD, morbidly obese HEENT: Normal conjunctiva, sclera anicteric CV: irregularly irregular rhythm/rate, chronic lymphedema of lower extremities. Pulm: Breath sounds diminished bilateral, no rhonchi or rales. ABD: Soft, non-tender, +hernias, obese abdomen. Skin: Bilateral lower extremity venous stasis dermatitis and skin xerosis. Neuro: Normal speech, normal affect Genitourinary: sims with clear urine in the urine bag. Problem List Parker hematuria UTI KAYLAH on CKD 3 supratherapeutic INR chronic atrial fibrillation on Coumadin Chronic diastolic CHF Chronic indwelling Sims catheter NIDDM 2 Hypertension Unclear etiology of patient's supratherapeutic INR. Supratherapeutic PT/INR likely secondary to drug-drug interaction. Patient received vitamin K in the ED prior to admission s/p Vit K on 10/29 and 10/30, FFP given 10/30 Hematuria resolved. INR is now subtherapeutic. Hemoglobin stable Unclear etiology of hematuria. Supratherapeutic INR contributed to the hematuria. Source of the hematuria is unknown. Status post cystoscopy by urology-no source identified. Hematuria deemed secondary to chronic bladder infection/colonization in the context of severely elevated INR. Dr. Lopez-urology recommend CT urogram to assess patient's upper urinary tract. CT urogram was ordered but firestopper technician stated it impossible to get it done based on patient's size and weight. They had to do [address] images [address] abdomen/pelvis, and may be impossible to do triple phase images. Has history of recurrent UTIs, UA and culture sent on 10/29, concerning for possible UTI, initiated antibiotics on 10/29 Urine culture grew MRSA, discussed with ID - suspect this is colonization. Patient has been improving, remains afebrile, resolution of leukocytosis on Unasyn + gent, recommended no change in regimen unless he worsens/makes no further improvement. Status post continuous bladder irrigation. Patient is off anticoagulation for now. Renal function initially worsened and nephrology was consulted. May be multifactorial, possible intravascular depletion versus hypotension versus obstruction from blood clots possibly from obstruction as well KAYLAH resolved. Patient patient had been on Bumex for diuresis. Resume Bumex. Patient has been breathing more comfortably on room air for 2 days Continue Cardizem for atrial fibrillation. Metoprolol on hold due to soft blood pressure.
[2021-11-04] MEDS: MELATONIN 5 MG TABLET PO PRN (20:42)
[2021-11-04] MEDS: DOXYCYCLINE 100 MG CAP PO SCH (20:42)
--- NOTE | 2021-11-04 21:19 | P.PN ---
Date of Service: 11/04/21 Vital Signs Temp Pulse Resp BP Pulse Ox 97.8 F 81 16 121/68 96 11/04/21 20:00 11/04/21 20:42 11/04/21 20:43 11/04/21 20:42 11/04/21 20:43 Medications Acetaminophen (Acetaminophen 500 Mg Tab) 500 mg PO Q6H PRN PRN Reason: Pain scale 2-4 (Mild) Last Admin: 10/30/21 12:59 Dose: 500 mg Documented by: Hydrocodone Bitart/Acetaminophen (Hydrocodone/Apap 5/325 Mg Tab) 1 tab PO Q6H PRN PRN Reason: Pain scale 5-7 (Moderate) Last Admin: 11/04/21 20:43 Dose: 1 tab Documented by: Cholecalciferol (Vitamin D 5,000 Unit Cap) 5,000 unit PO DAILY [facility] Last Admin: 11/04/21 08:29 Dose: 5,000 unit Documented by: Diltiazem HCl (Diltiazem Hcl 120 Mg Sr Cap) 120 mg PO BID [facility] Last Admin: 11/04/21 20:42 Dose: 120 mg Documented by: Docusate Sodium (Docusate Na 100 Mg Cap) 100 mg PO BID [facility] Last Admin: 11/04/21 20:43 Dose: 100 mg Documented by: Doxycycline Monohydrate (Doxycycline 100 Mg Cap) 100 mg PO BID [facility] Stop: 11/13/21 21:01 Last Admin: 11/04/21 20:42 Dose: 100 mg Documented by: Enteral Nutritional Formula (Nepro Shake 237 Ml Can) 237 ml PO TID [facility] Last Admin: 11/04/21 20:45 Dose: 237 ml Documented by: Hydromorphone HCl (Hydromorphone Hcl 0.5 Mg/0.5 Ml Inj) 0.5 mg IV Q8H PRN PRN Reason: Pain scale 8-10 (Severe) Last Admin: 11/04/21 16:50 Dose: 0.5 mg Documented by: Ampicillin Sodium/Sulbactam (Sodium 3 gm/ Sodium Chloride) 100 mls @ 200 mls/hr IVPB Q12HR [facility] Last Admin: 11/04/21 20:44 Dose: 100 mls Documented by: Insulin Human Regular (Insulin -Regular Human 50 Unit/0.5 Ml Ml) 0 unit SQ ACHS [facility]; Protocol Last Admin: 11/04/21 20:44 Dose: 2 unit Documented by: Lidocaine/Prilocaine (Lidocaine/Prilocaine Cream) 1 appl TOP DAILY [facility] Stop: 11/05/21 23:50 Last Admin: 11/04/21 08:30 Dose: 1 appl Documented by: Melatonin (Melatonin 5 Mg Tablet) 5 mg PO BEDTIME PRN PRN PRN Reason: INSOMNIA Last Admin: 11/04/21 20:42 Dose: 5 mg Documented by: Ondansetron HCl (Ondansetron 4 Mg/2 Ml Vial) 4 mg IV Q6HP PRN PRN Reason: NAUSEA / VOMITING Oxybutynin Chloride (Oxybutynin Chloride 5 Mg Tab) 5 mg PO TID [facility] Last Admin: 11/04/21 20:43 Dose: 5 mg Documented by: Pantoprazole Sodium (Pantoprazole 40mg Tablet) 40 mg PO DAILY [facility]; Protocol Last Admin: 11/04/21 08:29 Dose: 40 mg Documented by: Sertraline HCl (Sertraline Hcl 50 Mg Tab) 75 mg PO DAILY [facility] Last Admin: 11/04/21 08:29 Dose: 75 mg Documented by: Sodium Chloride (Flush Normal Saline 10 Ml) 10 ml IV BID [facility] Last Admin: 11/04/21 20:45 Dose: 10 ml Documented by: Sodium Chloride (Sodium Chloride Irrig Solution 3,000 Ml Bag) 0 ml IRR CONT [facility] Last Admin: 11/03/21 10:35 Dose: 3,000 ml Documented by: Assessment/ Plan: Nephrology No dyspnea +FINK No chest pain. Feeling better today No acute events overnight Vitals, medications, blood work and imaging reviewed in the chart General: In no apparent distress, Oriented x3, Cooperative HEENT: Atraumatic Neck: Supple Respiratory: Diminished Cardiovascular: Regular rate/rhythm, Edema Gastrointestinal: Soft and benign, No guarding Musculoskeletal: No clubbing, No contractures Integumentary: No rashes, No cyanosis Neurological: Normal speech Blood work reviewed in the chart. Imagings Data: EXAM DESCRIPTION: CTAbdomen Pelvis Wo Contrast - 10/30/2021 8:25 a CLINICAL HISTORY: suprapubic pain, elevated INR, worse renal fxn COMPARISON: Abdomen Pelvis W Contrast dated 09/24/2021; Stone Protocol dated 04/22/2018; Abdomen Pelvis W Contrast dated 08/21/2016; [facility] Protocol dated 05/24/2016 TECHNIQUE: CT of the abdomen and pelvis was performed. All CT scans are performed using dose optimization technique as appropriate and may include automated exposure control or mA/KV adjustment according to patient size. FINDINGS: Lower chest: Small left pleural effusion. Dependent atelectasis. Liver: No acute abnormality or suspicious lesions. Biliary: Cholecystectomy. Similar extrahepatic biliary ductal dilatation which may be related to the postcholecystectomy state. Stomach: Angel-en-Y gastric bypass. Duodenum: No significant focal abnormality. Pancreas: No significant abnormality. Spleen: No significant abnormality. Adrenal: No suspicious lesions. Kidney/ureter: No hydronephrosis. Nonobstructive right nephrolithiasis. Left renal cortical thinning. No hydronephrosis. Retroperitoneum: No retroperitoneal adenopathy. Vascular: IVC filter. Atherosclerosis. Bowel: No significant focal abnormality. Peritoneum: Abdominal wall laxity. Fat containing right inguinal hernia. Bladder: The bladder is mostly decompressed around a Hannah catheter. Gas within the bladder may be from instrumentation. Reproductive: No adnexal masses. Bones: No acute fracture. Degenerative changes are present in the hips and spine. Other: n/a IMPRESSION: No acute intra-abdominal or pelvic finding. Hannah catheter within the bladder. Gas within the bladder is presumably related to instrumentation. No hydronephrosis. EXAM DESCRIPTION: RAD - Chest Single View - 10/30/2021 5:52 am CLINICAL HISTORY: SOB COMPARISON: Chest Single View dated 09/30/2021; Chest Single View dated 09/24/2021; Chest Single View dated 12/13/2019; Chest Single View dated 07/12/2019 FINDINGS: Lines: None. Lungs: Worsened aeration of the lungs bilaterally with increasing diffuse opacities and prominence of the pulmonary vasculature. Pleural: Small effusions difficult to exclude. Cardiac: Cardiomegaly . Bones: No acute fractures. Other: IMPRESSION: Worsened pulmonary edema compared with 09/30/2021. EXAM DESCRIPTION: US - Renal Ultrasound-Complete - 10/30/2021 6:14 am CLINICAL HISTORY: KAYLAH COMPARISON: Abdomen Pelvis W Contrast dated 09/24/2021 FINDINGS: Limited by patient's body habitus. The right kidney measures 9.1 cm. No hydronephrosis. The left kidney was not visualized. IMPRESSION: Markedly limited due to body habitus. The left kidney was not visualized. No right-sided hydronephrosis. Conclusions/Impression: KAYLAH in the setting of hypotension. CKD III Hematuria due to trauma -No NSAIDs -Monitor gent level Hyponatremia HTN with CKD/ CHF complicated by hypotension -Continue Diltiazem Diastolic CHF, chronic -Low sodium diet DM II with hyperglycemia -RISS Moderate malnutrition Hypoalbuminemia -Continue Nepro Anemia in chronic illness Iron deficiency 14% -Monitor H&H -Continue daily IV iron
[2021-11-05] MEDS: HYDROMORPHONE HCL 0.5 MG/0.5 ML INJ IV PRN ×3 (02:00→17:44)
[2021-11-05 04:25] LABS: Protime INR 1.41
[2021-11-05] MEDS: HYDROCODONE/APAP 5/325 MG TAB PO PRN ×3 (04:55→21:24)
[2021-11-05] MEDS: LIDOCAINE/PRILOCAINE CREAM TOP SCH (09:00)
[2021-11-05] MEDS: NEPRO SHAKE 237 ML CAN PO SCH ×3 (09:00→21:00)
[2021-11-05] MEDS: DOXYCYCLINE 100 MG CAP PO SCH ×2 (09:11→21:24)
[2021-11-05] MEDS: INSULIN -REGULAR HUMAN 50 UNIT/0.5 ML ML SQ SCH ×4 (09:11→21:26)
[2021-11-05] MEDS: PANTOPRAZOLE 40MG TABLET PO SCH (09:11)
[2021-11-05] MEDS: VITAMIN D 5,000 UNIT CAP PO SCH (09:11)
[2021-11-05] MEDS: OXYBUTYNIN CHLORIDE 5 MG TAB PO SCH ×3 (09:11→21:25)
[2021-11-05] MEDS: DILTIAZEM HCL 120 MG SR CAP PO SCH ×2 (09:11→21:23)
[2021-11-05] MEDS: DOCUSATE NA 100 MG CAP PO SCH ×2 (09:11→21:24)
[2021-11-05] MEDS: AMPICILLIN/SULBACT 3 GM in NA CHLORIDE 0.9% 100 ML IVPB SCH ×2 (09:12→21:22)
[2021-11-05] MEDS: SERTRALINE HCL 50 MG TAB PO SCH (09:13)
--- NOTE | 2021-11-05 10:05 | P.PN ---
Subjective Date of Service: 11/05/21 Chief Complaint: Parker hematuria, supratherapeutic INR Patient seen examined at bedside, states he is having intermittent severe abdominal pain worse with food. Review of Systems 10-point ROS is otherwise unremarkable Physical Examination - Vital Signs Temperature: 97.1 F Blood Pressure: 133/78 Pulse: 98 Respirations: 18 Pulse Ox (%): 96 - Studies Laboratory Last Values WBC 14.20 K/uL (4.3-10.9) H D 10/29/21 15:41 RBC 4.17 M/uL (4.33-5.43) L 10/29/21 15:41 Hgb 13.1 g/dL (13.6-17.9) L 10/29/21 15:41 Hct 39.7 % (39.6-49.0) 10/29/21 15:41 MCV 95.0 fL (80-100) 10/29/21 15:41 MCH 31.3 pg (27.0-35.0) 10/29/21 15:41 MCHC 33.0 g/dL (32.0-36.0) 10/29/21 15:41 RDW 14.0 % (12.1-15.2) 10/29/21 15:41 Plt Count 311 K/uL (152-406) 10/29/21 15:41 MPV 7.2 fL (7.6-11.3) L 10/29/21 15:41 Neutrophils % 81.8 % (41.7-73.7) H 10/29/21 10:58 Lymphocytes % 11.9 % (15.3-44.8) L 10/29/21 10:58 Monocytes % 4.3 % (3.3-12.3) 10/29/21 10:58 Eosinophils % 1.4 % (0-4.4) 10/29/21 10:58 Basophils % 0.6 % (0-1.3) 10/29/21 10:58 Absolute Neutrophils 8.1 K/uL (1.8-8.0) H 10/29/21 10:58 Absolute Lymphocytes 1.2 K/uL (0.7-4.9) 10/29/21 10:58 Absolute Monocytes 0.4 K/uL (0.1-1.3) 10/29/21 10:58 Absolute Eosinophils 0.1 K/uL (0-0.5) 10/29/21 10:58 Absolute Basophils 0.1 K/uL (0-0.5) 10/29/21 10:58 PT 112.6 SECONDS (9.5-12.5) H 10/29/21 10:58 INR 9.57 H* 10/29/21 10:58 Sodium 130 mmol/L (136-145) L 10/29/21 10:58 Potassium 4.2 mmol/L (3.5-5.1) 10/29/21 10:58 Chloride 89 mmol/L (98-107) L 10/29/21 10:58 Carbon Dioxide 33 mmol/L (21-32) H 10/29/21 10:58 BUN 24 mg/dL (7-18) H 10/29/21 10:58 Creatinine 1.56 mg/dL (0.55-1.3) H 10/29/21 10:58 Estimated GFR 43 mL/min (=/>90) L 10/29/21 10:58 Glucose 303 mg/dL (74-106) H 10/29/21 10:58 Calcium 9.1 mg/dL (8.5-10.1) 10/29/21 10:58 Magnesium 2.0 mg/dL (1.8-2.4) 10/29/21 10:58 Total Bilirubin 0.6 mg/dL (0.2-1.0) 10/29/21 10:58 Direct Bilirubin 0.4 mg/dL (0-0.2) H 10/29/21 10:58 AST 76 U/L (15-37) H 10/29/21 10:58 ALT 45 U/L (12-78) 10/29/21 10:58 Alkaline Phosphatase 151 U/L (45-117) H 10/29/21 10:58 Rapid Troponin I < 0.02 ng/mL (0.0-0.045) 10/29/21 10:58 NT-Pro-B Natriuret Pep 1311 pg/mL (<450) H 10/29/21 10:58 Serum Total Protein 8.4 g/dL (6.4-8.2) H 10/29/21 10:58 Albumin 2.3 g/dL (3.4-5.0) L 10/29/21 10:58 Globulin 6.1 g/dL (2.3-3.5) H 10/29/21 10:58 Albumin/Globulin Ratio 0.4 (1.1-1.8) L 10/29/21 10:58 SARS-CoV-2 Rap RNA(RT-PCR) Negative (NEGATIVE) 10/29/21 12:38 Assessment And Plan - Plan Physical exam General: Obese HEENT: Atraumatic, Normocephalic Neck: Supple, JVD not distended Respiratory: Clear to auscultation bilaterally, Normal air movement Cardiovascular: No edema, Regular rate/rhythm Gastrointestinal: Other (Several abdominal hernias) Assessment/plan UTI Urine culture obtained on 10/29 growing methicillin-resistant Staphylococcus aureus. Suspect colonization as patient has had indwelling Hannah catheter for the past 10 years in the history of multiple UTIs. Patient empirically placed on gentamicin and unasyn per urology recommendations, and has been improving. Patient is status post bedside cystoscopic examination performed on 11/03. No lesions/tumor is identified. Urology recommends discontinuing gentamicin and placing patient on oral Bactrim+ unasyn. Also recommended discharging patient on monotherapy oral Bactrim for total antibiotic duration of 14 days. Agree with Urology recommendations, however patient is allergic to sulfa antibiotics as such we have switched Bactrim with doxycycline which will still have MRSA coverage.. Patient initially started IV antibiotics on 10/30, has a antibiotic completion date of 11/13. Recommend following up with Urology outpatient. Parker hematuria Urology following, likely secondary to elevated INR and cystitis. Morbid obesity Anemia Protein caloric malnutrition In CHF Diabetes -medical management per primary team -plan of care discussed with Dr. Estrada -thank you for consultation
--- NOTE | 2021-11-05 15:19 | P.PN ---
Subjective Date of Service: 11/05/21 Chief Complaint: Parker hematuria, supratherapeutic INR Patient has no new complaints. His urine remains clear. Physical Examination - Vital Signs Temperature: 97.4 F Blood Pressure: 116/56 Pulse: 98 Respirations: 18 Pulse Ox (%): 96 Assessment And Plan - Plan Physical exam GEN: Alert, oriented, NAD, morbidly obese HEENT: Normal conjunctiva, sclera anicteric CV: irregularly irregular rhythm/rate, chronic lymphedema of lower extremities. Pulm: Breath sounds diminished bilateral, no rhonchi or rales. ABD: Soft, non-tender, +hernias, obese abdomen. Skin: Bilateral lower extremity venous stasis dermatitis and skin xerosis. Neuro: Normal speech, normal affect Genitourinary: sims with clear urine in the urine bag. Problem List Parker hematuria UTI KAYLAH on CKD 3 supratherapeutic INR chronic atrial fibrillation on Coumadin Chronic diastolic CHF Chronic indwelling Sims catheter NIDDM 2 Hypertension Unclear etiology of patient's supratherapeutic INR. Supratherapeutic PT/INR likely secondary to drug-drug interaction. Patient received vitamin K in the ED prior to admission s/p Vit K on 10/29 and 10/30, FFP given 10/30 Hematuria resolved. INR is now subtherapeutic. Hemoglobin stable. Unclear etiology of hematuria. Source of the hematuria is unknown. Status post cystoscopy by urology-no source identified. Hematuria deemed secondary to chronic bladder infection/colonization in the context of severely elevated INR. Dr. Lopez-urology recommend CT urogram to assess patient's upper urinary tract. CT urogram was ordered but wiring technician stated it impossible to get it done based on patient's size and weight. They had to do 3 images for a contrast CT abdomen/pelvis, and may be impossible to do triple phase images. Has history of recurrent UTIs, UA and culture sent on 10/29, concerning for possible UTI, initiated antibiotics on 10/29 Urine culture grew MRSA, discussed with ID - suspect this is colonization. Patient has been improving, remains afebrile, resolution of leukocytosis on Unasyn + gent, recommended no change in regimen unless he worsens/makes no further improvement. Patient on continuous bladder irrigation. Patient is off anticoagulation for now. Stop bladder irrigation and monitor. messaged urology-Dr. Morris if there is any other option to assess his upper urinary tract for source of hematuria. We will hold anticoagulation as we explore that option. Renal function initially worsened and nephrology was consulted. May be multifactorial, possible intravascular depletion versus hypotension versus obstruction from blood clots possibly from obstruction as well KAYLAH resolved. Patient patient had been on Bumex for diuresis. Bumex resumed to prevent volume overload. Patient has been breathing more comfortably on room air for 2 days Continue Cardizem for atrial fibrillation. Metoprolol on hold due to soft blood pressure. Insulin sliding scale for glucose management.
--- NOTE | 2021-11-05 20:23 | P.PN ---
Date of Service: 11/05/21 Vital Signs Temp Pulse Resp BP Pulse Ox 97.6 F 89 20 115/64 97 11/05/21 16:00 11/05/21 16:00 11/05/21 16:00 11/05/21 16:00 11/05/21 16:00 Medications Acetaminophen (Acetaminophen 500 Mg Tab) 500 mg PO Q6H PRN PRN Reason: Pain scale 2-4 (Mild) Last Admin: 10/30/21 12:59 Dose: 500 mg Documented by: Hydrocodone Bitart/Acetaminophen (Hydrocodone/Apap 5/325 Mg Tab) 1 tab PO Q6H PRN PRN Reason: Pain scale 5-7 (Moderate) Last Admin: 11/05/21 13:41 Dose: 1 tab Documented by: Cholecalciferol (Vitamin D 5,000 Unit Cap) 5,000 unit PO DAILY [facility] Last Admin: 11/05/21 09:11 Dose: 5,000 unit Documented by: Diltiazem HCl (Diltiazem Hcl 120 Mg Sr Cap) 120 mg PO BID [facility] Last Admin: 11/05/21 09:11 Dose: 120 mg Documented by: Docusate Sodium (Docusate Na 100 Mg Cap) 100 mg PO BID [facility] Last Admin: 11/05/21 09:11 Dose: 100 mg Documented by: Doxycycline Monohydrate (Doxycycline 100 Mg Cap) 100 mg PO BID [facility] Stop: 11/13/21 21:01 Last Admin: 11/05/21 09:11 Dose: 100 mg Documented by: Enteral Nutritional Formula (Nepro Shake 237 Ml Can) 237 ml PO TID [facility] Last Admin: 11/05/21 13:41 Dose: 237 ml Documented by: Hydromorphone HCl (Hydromorphone Hcl 0.5 Mg/0.5 Ml Inj) 0.5 mg IV Q8H PRN PRN Reason: Pain scale 8-10 (Severe) Last Admin: 11/05/21 17:44 Dose: 0.5 mg Documented by: Ampicillin Sodium/Sulbactam (Sodium 3 gm/ Sodium Chloride) 100 mls @ 200 mls/hr IVPB Q12HR [facility] Last Admin: 11/05/21 09:12 Dose: 100 mls Documented by: Insulin Human Regular (Insulin -Regular Human 50 Unit/0.5 Ml Ml) 0 unit SQ ACHS [facility]; Protocol Last Admin: 11/05/21 16:55 Dose: 2 unit Documented by: Lidocaine/Prilocaine (Lidocaine/Prilocaine Cream) 1 appl TOP DAILY [facility] Stop: 11/05/21 23:50 Last Admin: 11/05/21 09:00 Dose: Not Given Documented by: Melatonin (Melatonin 5 Mg Tablet) 5 mg PO BEDTIME PRN PRN PRN Reason: INSOMNIA Last Admin: 11/04/21 20:42 Dose: 5 mg Documented by: Ondansetron HCl (Ondansetron 4 Mg/2 Ml Vial) 4 mg IV Q6HP PRN PRN Reason: NAUSEA / VOMITING Oxybutynin Chloride (Oxybutynin Chloride 5 Mg Tab) 5 mg PO TID [facility] Last Admin: 11/05/21 13:41 Dose: 5 mg Documented by: Pantoprazole Sodium (Pantoprazole 40mg Tablet) 40 mg PO DAILY [facility]; Protocol Last Admin: 11/05/21 09:11 Dose: 40 mg Documented by: Sertraline HCl (Sertraline Hcl 50 Mg Tab) 75 mg PO DAILY [facility] Last Admin: 11/05/21 09:13 Dose: 75 mg Documented by: Sodium Chloride (Flush Normal Saline 10 Ml) 10 ml IV BID [facility] Last Admin: 11/05/21 09:12 Dose: 10 ml Documented by: Sodium Chloride (Sodium Chloride Irrig Solution 3,000 Ml Bag) 0 ml IRR CONT [facility] Last Admin: 11/03/21 10:35 Dose: 3,000 ml Documented by: Assessment/ Plan: Nephrology No dyspnea +FINK No chest pain. Weakness No acute events overnight Vitals, medications, blood work and imaging reviewed in the chart General: In no apparent distress, Oriented x3, Cooperative HEENT: Atraumatic Neck: Supple Respiratory: Normal respiratory effort Cardiovascular: Regular rate/rhythm, Edema Gastrointestinal: Soft and benign, No guarding Musculoskeletal: No clubbing, No contractures Integumentary: No rashes, No cyanosis Neurological: Normal speech Blood work reviewed in the chart. Imagings Data: EXAM DESCRIPTION: CTAbdomen Pelvis Wo Contrast - 10/30/2021 8:25 a CLINICAL HISTORY: suprapubic pain, elevated INR, worse renal fxn COMPARISON: Abdomen Pelvis W Contrast dated 09/24/2021; [facility] Protocol dated 04/22/2018; Abdomen Pelvis W Contrast dated 08/21/2016; [facility] Protocol dated 05/24/2016 TECHNIQUE: CT of the abdomen and pelvis was performed. All CT scans are performed using dose optimization technique as appropriate and may include automated exposure control or mA/KV adjustment according to patient size. FINDINGS: Lower chest: Small left pleural effusion. Dependent atelectasis. Liver: No acute abnormality or suspicious lesions. Biliary: Cholecystectomy. Similar extrahepatic biliary ductal dilatation which may be related to the postcholecystectomy state. Stomach: Angel-en-Y gastric bypass. Duodenum: No significant focal abnormality. Pancreas: No significant abnormality. Spleen: No significant abnormality. Adrenal: No suspicious lesions. Kidney/ureter: No hydronephrosis. Nonobstructive right nephrolithiasis. Left renal cortical thinning. No hydronephrosis. Retroperitoneum: No retroperitoneal adenopathy. Vascular: IVC filter. Atherosclerosis. Bowel: No significant focal abnormality. Peritoneum: Abdominal wall laxity. Fat containing right inguinal hernia. Bladder: The bladder is mostly decompressed around a Hannah catheter. Gas within the bladder may be from instrumentation. Reproductive: No adnexal masses. Bones: No acute fracture. Degenerative changes are present in the hips and spine. Other: n/a IMPRESSION: No acute intra-abdominal or pelvic finding. Hannah catheter within the bladder. Gas within the bladder is presumably related to instrumentation. No hydronephrosis. EXAM DESCRIPTION: RAD - Chest Single View - 10/30/2021 5:52 am CLINICAL HISTORY: SOB COMPARISON: Chest Single View dated 09/30/2021; Chest Single View dated 09/24/2021; Chest Single View dated 12/13/2019; Chest Single View dated 07/12/2019 FINDINGS: Lines: None. Lungs: Worsened aeration of the lungs bilaterally with increasing diffuse opacities and prominence of the pulmonary vasculature. Pleural: Small effusions difficult to exclude. Cardiac: Cardiomegaly . Bones: No acute fractures. Other: IMPRESSION: Worsened pulmonary edema compared with 09/30/2021. EXAM DESCRIPTION: US - Renal Ultrasound-Complete - 10/30/2021 6:14 am CLINICAL HISTORY: KAYLAH COMPARISON: Abdomen Pelvis W Contrast dated 09/24/2021 FINDINGS: Limited by patient's body habitus. The right kidney measures 9.1 cm. No hydronephrosis. The left kidney was not visualized. IMPRESSION: Markedly limited due to body habitus. The left kidney was not visualized. No right-sided hydronephrosis. Conclusions/Impression: KAYLAH in the setting of hypotension. CKD III Hematuria due to trauma -No NSAIDs Hypokalemia -Start spironolactone HTN with CKD/ CHF complicated by hypotension -Continue Diltiazem Diastolic CHF, chronic -Low sodium diet -Restart Bumex -Start spironolactone DM II with hyperglycemia -RISS Moderate malnutrition Hypoalbuminemia -Continue Nepro Anemia in chronic illness Iron deficiency 14% -Monitor H&H -Continue daily IV iron
[2021-11-05] MEDS: SPIRONOLACTONE 25 MG TABLET PO SCH (21:25)
[2021-11-06] MEDS: HYDROMORPHONE HCL 0.5 MG/0.5 ML INJ IV PRN ×3 (00:45→21:06)
[2021-11-06 04:15] LABS: Protime INR 1.33
[2021-11-06] MEDS: HYDROCODONE/APAP 5/325 MG TAB PO PRN ×2 (04:20→16:28)
[2021-11-06 04:35] LABS: Phosphorus 3.4 mg/dL (2.5-4.9); Potassium 3.6 mmol/L (3.5-5.1)
[2021-11-06] MEDS ORDERED: POTASSIUM CL SA 10 MEQ TAB PO ONE (07:00)
[2021-11-06] MEDS: AMPICILLIN/SULBACT 3 GM in NA CHLORIDE 0.9% 100 ML IVPB SCH ×2 (08:19→21:10)
[2021-11-06] MEDS: BUMETANIDE 1 MG TABLET PO SCH (08:20)
[2021-11-06] MEDS: PANTOPRAZOLE 40MG TABLET PO SCH (08:20)
[2021-11-06] MEDS: SPIRONOLACTONE 25 MG TABLET PO SCH (08:21)
[2021-11-06] MEDS: DOXYCYCLINE 100 MG CAP PO SCH ×2 (08:21→21:08)
[2021-11-06] MEDS: OXYBUTYNIN CHLORIDE 5 MG TAB PO SCH ×3 (08:22→21:00)
[2021-11-06] MEDS: DOCUSATE NA 100 MG CAP PO SCH ×2 (08:22→21:07)
[2021-11-06] MEDS: VITAMIN D 5,000 UNIT CAP PO SCH (08:22)
[2021-11-06] MEDS: DILTIAZEM HCL 120 MG SR CAP PO SCH ×2 (08:22→21:07)
[2021-11-06] MEDS: INSULIN -REGULAR HUMAN 50 UNIT/0.5 ML ML SQ SCH ×4 (08:23→21:00)
[2021-11-06] MEDS: SERTRALINE HCL 50 MG TAB PO SCH (08:23)
[2021-11-06] MEDS: NEPRO SHAKE 237 ML CAN PO SCH ×3 (08:24→21:00)
--- NOTE | 2021-11-06 10:18 | P.PN ---
Subjective Date of Service: 11/06/21 Chief Complaint: Parker hematuria, supratherapeutic INR Patient seen examined at bedside, no acute complaint. Review of Systems 10-point ROS is otherwise unremarkable Physical Examination - Vital Signs Temperature: 97.6 F Blood Pressure: 115/73 Pulse: 90 Respirations: 18 Pulse Ox (%): 93 - Studies Laboratory Last Values WBC 14.20 K/uL (4.3-10.9) H D 10/29/21 15:41 RBC 4.17 M/uL (4.33-5.43) L 10/29/21 15:41 Hgb 13.1 g/dL (13.6-17.9) L 10/29/21 15:41 Hct 39.7 % (39.6-49.0) 10/29/21 15:41 MCV 95.0 fL (80-100) 10/29/21 15:41 MCH 31.3 pg (27.0-35.0) 10/29/21 15:41 MCHC 33.0 g/dL (32.0-36.0) 10/29/21 15:41 RDW 14.0 % (12.1-15.2) 10/29/21 15:41 Plt Count 311 K/uL (152-406) 10/29/21 15:41 MPV 7.2 fL (7.6-11.3) L 10/29/21 15:41 Neutrophils % 81.8 % (41.7-73.7) H 10/29/21 10:58 Lymphocytes % 11.9 % (15.3-44.8) L 10/29/21 10:58 Monocytes % 4.3 % (3.3-12.3) 10/29/21 10:58 Eosinophils % 1.4 % (0-4.4) 10/29/21 10:58 Basophils % 0.6 % (0-1.3) 10/29/21 10:58 Absolute Neutrophils 8.1 K/uL (1.8-8.0) H 10/29/21 10:58 Absolute Lymphocytes 1.2 K/uL (0.7-4.9) 10/29/21 10:58 Absolute Monocytes 0.4 K/uL (0.1-1.3) 10/29/21 10:58 Absolute Eosinophils 0.1 K/uL (0-0.5) 10/29/21 10:58 Absolute Basophils 0.1 K/uL (0-0.5) 10/29/21 10:58 PT 112.6 SECONDS (9.5-12.5) H 10/29/21 10:58 INR 9.57 H* 10/29/21 10:58 Sodium 130 mmol/L (136-145) L 10/29/21 10:58 Potassium 4.2 mmol/L (3.5-5.1) 10/29/21 10:58 Chloride 89 mmol/L (98-107) L 10/29/21 10:58 Carbon Dioxide 33 mmol/L (21-32) H 10/29/21 10:58 BUN 24 mg/dL (7-18) H 10/29/21 10:58 Creatinine 1.56 mg/dL (0.55-1.3) H 10/29/21 10:58 Estimated GFR 43 mL/min (=/>90) L 10/29/21 10:58 Glucose 303 mg/dL (74-106) H 10/29/21 10:58 Calcium 9.1 mg/dL (8.5-10.1) 10/29/21 10:58 Magnesium 2.0 mg/dL (1.8-2.4) 10/29/21 10:58 Total Bilirubin 0.6 mg/dL (0.2-1.0) 10/29/21 10:58 Direct Bilirubin 0.4 mg/dL (0-0.2) H 10/29/21 10:58 AST 76 U/L (15-37) H 10/29/21 10:58 ALT 45 U/L (12-78) 10/29/21 10:58 Alkaline Phosphatase 151 U/L (45-117) H 10/29/21 10:58 Rapid Troponin I < 0.02 ng/mL (0.0-0.045) 10/29/21 10:58 NT-Pro-B Natriuret Pep 1311 pg/mL (<450) H 10/29/21 10:58 Serum Total Protein 8.4 g/dL (6.4-8.2) H 10/29/21 10:58 Albumin 2.3 g/dL (3.4-5.0) L 10/29/21 10:58 Globulin 6.1 g/dL (2.3-3.5) H 10/29/21 10:58 Albumin/Globulin Ratio 0.4 (1.1-1.8) L 10/29/21 10:58 SARS-CoV-2 Rap RNA(RT-PCR) Negative (NEGATIVE) 10/29/21 12:38 Assessment And Plan - Plan Physical exam General: Obese HEENT: Atraumatic, Normocephalic Neck: Supple, JVD not distended Respiratory: Clear to auscultation bilaterally, Normal air movement Cardiovascular: No edema, Regular rate/rhythm Gastrointestinal: Other (Several abdominal hernias) Assessment/plan UTI Urine culture obtained on 10/29 growing methicillin-resistant Staphylococcus aureus. Suspect colonization as patient has had indwelling Hannah catheter for the past 10 years in the history of multiple UTIs. Patient empirically placed on gentamicin and unasyn per urology recommendations, and was improving. Patient is status post bedside cystoscopic examination performed on 11/03. No lesions/tumor is identified. Urology recommended discontinuing gentamicin and placing patient on oral Bactrim+ unasyn. Also recommended discharging patient on monotherapy oral Bactrim for total antibiotic duration of 14 days. Agree with Urology recommendations, however patient is allergic to sulfa antibiotics- as such we have switched Bactrim with doxycycline which will still have MRSA coverage.. Patient initially started IV antibiotics on 10/30, has a antibiotic completion date of 11/13. Recommend following up with Urology outpatient. Parker hematuria Urology following, likely secondary to elevated INR and cystitis. Morbid obesity Anemia Protein caloric malnutrition In CHF Diabetes -medical management per primary team -plan of care discussed with Dr. Estrada -thank you for consultation
--- NOTE | 2021-11-06 11:01 | P.PN ---
Subjective Date of Service: 11/06/21 Chief Complaint: Brandy hematuria, supratherapeutic INR No new complaint Urine looks concentrated, no brandy blood. Physical Examination - Vital Signs Temperature: 97.6 F Blood Pressure: 115/73 Pulse: 90 Respirations: 18 Pulse Ox (%): 93 Assessment And Plan - Plan Physical exam GEN: Alert, oriented, NAD, morbidly obese HEENT: Normal conjunctiva, sclera anicteric CV: irregularly irregular rhythm/rate, chronic lymphedema of lower extremities. Pulm: Breath sounds diminished bilateral, no rhonchi or rales. ABD: Soft, non-tender, +hernias, obese abdomen. Skin: Bilateral lower extremity venous stasis dermatitis and skin xerosis. Neuro: Normal speech, normal affect Genitourinary: sims with clear urine in the urine bag. Problem List Brandy hematuria UTI KAYLAH on CKD 3 supratherapeutic INR chronic atrial fibrillation on Coumadin Chronic diastolic CHF Chronic indwelling Sims catheter NIDDM 2 Hypertension Supratherapeutic PT/INR likely secondary to drug-drug interaction. Patient received vitamin K in the ED prior to admission s/p Vit K on 10/29 and 10/30, FFP given 10/30 Hematuria resolved. INR is now subtherapeutic. Hemoglobin stable. Unclear etiology of hematuria. Source of the hematuria is unknown. Status post cystoscopy by urology-no source identified. Hematuria deemed secondary to chronic bladder infection/colonization in the context of severely elevated INR. Dr. Lopez-urology recommend CT urogram to assess patient's upper urinary tract. CT urogram was ordered but soil conservation technician stated it impossible to get it done based on patient's size and weight. They had to do 3 images for a contrast CT abdomen/pelvis and each time the scanner shut off and hard to be rebooted. According to the nuclear worker technician it impossible to do more than [address] Has history of recurrent UTIs, UA and culture sent on 10/29, concerning for possible UTI, initiated antibiotics on 10/29 Urine culture grew MRSA. ID suspect colonization. Patient has been improving, remains afebrile, resolution of leukocytosis on Unasyn + gent, ID changed antibiotics to Unasyn and doxycycline. Bladder irrigation discontinued, three-way Sims catheter is still in place. Patient is off anticoagulation for now. We will hold anticoagulation as we explore alternate means to assess patient's upper urinary tract for lesions that might have caused the hematuria. Renal function initially worsened and nephrology was consulted. The cause of KAYLAH is multifactorial, possible intravascular depletion versus hypotension versus obstruction from blood clots possibly from obstruction as well KAYLAH resolved. Patient patient had been on Bumex for diuresis. Bumex resumed to prevent volume overload. Nephrology also added Aldactone. Respiratory status is stable. Continue Cardizem for atrial fibrillation. Metoprolol on hold due to soft blood pressure. Insulin sliding scale for glucose management. Disposition: Social service looking at skilled rehab at [place].
--- NOTE | 2021-11-06 11:17 | P.PN ---
Date of Service: 11/06/21 Vital Signs Temp Pulse Resp BP Pulse Ox 97.6 F 90 18 115/73 93 11/06/21 11:01 11/06/21 11:01 11/06/21 11:01 11/06/21 11:01 11/06/21 11:01 Medications Acetaminophen (Acetaminophen 500 Mg Tab) 500 mg PO Q6H PRN PRN Reason: Pain scale 2-4 (Mild) Last Admin: 10/30/21 12:59 Dose: 500 mg Documented by: Hydrocodone Bitart/Acetaminophen (Hydrocodone/Apap 5/325 Mg Tab) 1 tab PO Q6H PRN PRN Reason: Pain scale 5-7 (Moderate) Last Admin: 11/06/21 04:20 Dose: 1 tab Documented by: Bumetanide (Bumetanide 1 Mg Tablet) 1 mg PO DAILY [facility] Last Admin: 11/06/21 08:20 Dose: 1 mg Documented by: Cholecalciferol (Vitamin D 5,000 Unit Cap) 5,000 unit PO DAILY [facility] Last Admin: 11/06/21 08:22 Dose: 5,000 unit Documented by: Diltiazem HCl (Diltiazem Hcl 120 Mg Sr Cap) 120 mg PO BID [facility] Last Admin: 11/06/21 08:22 Dose: 120 mg Documented by: Docusate Sodium (Docusate Na 100 Mg Cap) 100 mg PO BID [facility] Last Admin: 11/06/21 08:22 Dose: 100 mg Documented by: Doxycycline Monohydrate (Doxycycline 100 Mg Cap) 100 mg PO BID [facility] Stop: 11/13/21 21:01 Last Admin: 11/06/21 08:21 Dose: 100 mg Documented by: Enteral Nutritional Formula (Nepro Shake 237 Ml Can) 237 ml PO TID [facility] Last Admin: 11/06/21 08:24 Dose: 237 ml Documented by: Hydromorphone HCl (Hydromorphone Hcl 0.5 Mg/0.5 Ml Inj) 0.5 mg IV Q8H PRN PRN Reason: Pain scale 8-10 (Severe) Last Admin: 11/06/21 00:45 Dose: 0.5 mg Documented by: Ampicillin Sodium/Sulbactam (Sodium 3 gm/ Sodium Chloride) 100 mls @ 200 mls/hr IVPB Q12HR [facility] Last Admin: 11/06/21 08:19 Dose: 100 mls Documented by: Insulin Human Regular (Insulin -Regular Human 50 Unit/0.5 Ml Ml) 0 unit SQ ACHS [facility]; Protocol Last Admin: 11/06/21 08:23 Dose: 2 unit Documented by: Melatonin (Melatonin 5 Mg Tablet) 5 mg PO BEDTIME PRN PRN PRN Reason: INSOMNIA Last Admin: 11/04/21 20:42 Dose: 5 mg Documented by: Ondansetron HCl (Ondansetron 4 Mg/2 Ml Vial) 4 mg IV Q6HP PRN PRN Reason: NAUSEA / VOMITING Oxybutynin Chloride (Oxybutynin Chloride 5 Mg Tab) 5 mg PO TID [facility] Last Admin: 11/06/21 08:22 Dose: 5 mg Documented by: Pantoprazole Sodium (Pantoprazole 40mg Tablet) 40 mg PO DAILY [facility]; Protocol Last Admin: 11/06/21 08:20 Dose: 40 mg Documented by: Sertraline HCl (Sertraline Hcl 50 Mg Tab) 75 mg PO DAILY [facility] Last Admin: 11/06/21 08:23 Dose: 75 mg Documented by: Sodium Chloride (Flush Normal Saline 10 Ml) 10 ml IV BID [facility] Last Admin: 11/06/21 08:24 Dose: 10 ml Documented by: Sodium Chloride (Sodium Chloride Irrig Solution 3,000 Ml Bag) 0 ml IRR CONT [facility] Last Admin: 11/03/21 10:35 Dose: 3,000 ml Documented by: Spironolactone (Spironolactone 25 Mg Tablet) 50 mg PO DAILY [facility] Last Admin: 11/06/21 08:21 Dose: 50 mg Documented by: Assessment/ Plan: Nephrology No dyspnea +FINK No chest pain. Weakness. Anorexia. No acute events overnight Vitals, medications, blood work and imaging reviewed in the chart General: In no apparent distress, Oriented x3, Cooperative HEENT: Atraumatic Neck: Supple Respiratory: Normal respiratory effort Cardiovascular: Regular rate/rhythm, Edema Gastrointestinal: Soft and benign, No guarding Musculoskeletal: No clubbing, No contractures Integumentary: No rashes, No cyanosis Neurological: Normal speech Blood work reviewed in the chart. Imagings Data: EXAM DESCRIPTION: CTAbdomen Pelvis Wo Contrast - 10/30/2021 8:25 a CLINICAL HISTORY: suprapubic pain, elevated INR, worse renal fxn COMPARISON: Abdomen Pelvis W Contrast dated 09/24/2021; [facility] Protocol dated 04/22/2018; Abdomen Pelvis W Contrast dated 08/21/2016; [facility] Protocol dated 05/24/2016 TECHNIQUE: CT of the abdomen and pelvis was performed. All CT scans are performed using dose optimization technique as appropriate and may include automated exposure control or mA/KV adjustment according to patient size. FINDINGS: Lower chest: Small left pleural effusion. Dependent atelectasis. Liver: No acute abnormality or suspicious lesions. Biliary: Cholecystectomy. Similar extrahepatic biliary ductal dilatation which may be related to the postcholecystectomy state. Stomach: Angel-en-Y gastric bypass. Duodenum: No significant focal abnormality. Pancreas: No significant abnormality. Spleen: No significant abnormality. Adrenal: No suspicious lesions. Kidney/ureter: No hydronephrosis. Nonobstructive right nephrolithiasis. Left renal cortical thinning. No hydronephrosis. Retroperitoneum: No retroperitoneal adenopathy. Vascular: IVC filter. Atherosclerosis. Bowel: No significant focal abnormality. Peritoneum: Abdominal wall laxity. Fat containing right inguinal hernia. Bladder: The bladder is mostly decompressed around a Hannah catheter. Gas within the bladder may be from instrumentation. Reproductive: No adnexal masses. Bones: No acute fracture. Degenerative changes are present in the hips and spine. Other: n/a IMPRESSION: No acute intra-abdominal or pelvic finding. Hannah catheter within the bladder. Gas within the bladder is presumably related to instrumentation. No hydronephrosis. EXAM DESCRIPTION: RAD - Chest Single View - 10/30/2021 5:52 am CLINICAL HISTORY: SOB COMPARISON: Chest Single View dated 09/30/2021; Chest Single View dated 09/24/2021; Chest Single View dated 12/13/2019; Chest Single View dated 07/12/2019 FINDINGS: Lines: None. Lungs: Worsened aeration of the lungs bilaterally with increasing diffuse opacities and prominence of the pulmonary vasculature. Pleural: Small effusions difficult to exclude. Cardiac: Cardiomegaly . Bones: No acute fractures. Other: IMPRESSION: Worsened pulmonary edema compared with 09/30/2021. EXAM DESCRIPTION: US - Renal Ultrasound-Complete - 10/30/2021 6:14 am CLINICAL HISTORY: KAYLAH COMPARISON: Abdomen Pelvis W Contrast dated 09/24/2021 FINDINGS: Limited by patient's body habitus. The right kidney measures 9.1 cm. No hydronephrosis. The left kidney was not visualized. IMPRESSION: Markedly limited due to body habitus. The left kidney was not visualized. No right-sided hydronephrosis. Conclusions/Impression: KAYLAH in the setting of hypotension. CKD III Hematuria due to trauma -No NSAIDs Hypokalemia -Continue spironolactone HTN with CKD/ CHF complicated by hypotension -Continue Diltiazem Diastolic CHF, chronic -Low sodium diet -Continue Bumex -Continue spironolactone DM II with hyperglycemia -RISS Moderate malnutrition Hypoalbuminemia -Continue Nepro Anemia in chronic illness Iron deficiency 14% -Monitor H&H -Continue daily IV iron
--- NOTE | 2021-11-06 14:38 | RAD REPORT ---
EXAM DESCRIPTION: CTAbdomen Pelvis W/Wo Contrast - 11/06/2021 2:22 pm CLINICAL HISTORY: Hematuria COMPARISON: Abdomen Pelvis Wo Contrast dated 10/30/2021; Abdomen Pelvis W Contrast dated 1; [facility] Protocol dated 04/22/2018; Abdomen Pelvis W Contrast dated 08/21/2016 TECHNIQUE: CT of the abdomen and pelvis was performed. All CT scans are performed using dose optimization technique as appropriate and may include automated exposure control or mA/KV adjustment according to patient size. FINDINGS: Lower chest: Partially imaged pleural effusions. This is small in the right and incomplete ly imaged on the left. Liver: Nodular liver configuration. No masses are seen. Biliary: Cholecystectomy. Similar extrahepatic biliary ductal dilatation. Stomach: Angel-en-Y gastric bypass. Duodenum: No significant focal abnormality. Pancreas: Fatty infiltration of the pancreas. No masses are identified. Spleen: No significant abnormality. Adrenal: No suspicious lesions. Kidney/ureter: There is some contrast within the renal collecting systems bilaterally. Both kidneys have renal parenchymal thinning. Right-sided renal calculi better demonstrated on the prior noncontra st CT. Retroperitoneum: No retroperitoneal adenopathy. Vascular: Calcifications in the IVC may represent an IVC filter. Bowel: No significant focal abnormality. Peritoneum: No ascites or free air. Pronounced ventral abdominal wall Bladder: Hannah catheter with decompressed bladder. Some contrast is seen. Small volume of air in the bladder may be related to instrumentation. Reproductive: No adnexal masses. Bones: No acute fracture. Other: n/a IMPRESSION: No acute intra-abdominal or pelvic finding. No significant change compared with 10/30/20 21. Nonobstructive right nephrolithiasis. The bladder is decompressed around a Hannah catheter. No oth er specific findings are present to explain reported hematuria.
[2021-11-06] MEDS ORDERED: HYDROMORPHONE HCL 1 MG/ML INJ IV ONE (17:15)
[2021-11-06] MEDS ORDERED: OXYBUTYNIN CHLORIDE 5 MG TAB PO ONE (18:00)
[2021-11-06] MEDS ORDERED: NA CHLORIDE 0.9% 0 ML ONE (20:06)
[2021-11-06] MEDS: MELATONIN 5 MG TABLET PO PRN (21:08)
[2021-11-07] MEDS: HYDROCODONE/APAP 5/325 MG TAB PO PRN ×3 (02:45→20:24)
[2021-11-07] MEDS: HYDROMORPHONE HCL 0.5 MG/0.5 ML INJ IV PRN ×2 (04:48→14:56)
[2021-11-07 05:17] LABS: Protime INR 1.32
[2021-11-07 05:33] LABS: Potassium 3.7 mmol/L (3.5-5.1)
[2021-11-07] MEDS ORDERED: POTASSIUM CL SA 10 MEQ TAB PO ONE (05:35)
[2021-11-07] MEDS: INSULIN -REGULAR HUMAN 50 UNIT/0.5 ML ML SQ SCH ×4 (06:58→20:23)
[2021-11-07] MEDS: PANTOPRAZOLE 40MG TABLET PO SCH (08:02)
[2021-11-07] MEDS: VITAMIN D 5,000 UNIT CAP PO SCH (08:02)
[2021-11-07] MEDS: DOXYCYCLINE 100 MG CAP PO SCH ×2 (08:03→20:25)
[2021-11-07] MEDS: BUMETANIDE 1 MG TABLET PO SCH (08:03)
[2021-11-07] MEDS: DILTIAZEM HCL 120 MG SR CAP PO SCH ×2 (08:03→20:24)
[2021-11-07] MEDS: DOCUSATE NA 100 MG CAP PO SCH ×2 (08:04→20:25)
[2021-11-07] MEDS: NEPRO SHAKE 237 ML CAN PO SCH ×3 (08:04→20:27)
[2021-11-07] MEDS: AMPICILLIN/SULBACT 3 GM in NA CHLORIDE 0.9% 100 ML IVPB SCH ×2 (08:04→20:26)
[2021-11-07] MEDS: SPIRONOLACTONE 25 MG TABLET PO SCH (08:04)
[2021-11-07] MEDS: OXYBUTYNIN CHLORIDE 5 MG TAB PO SCH ×3 (08:09→20:26)
[2021-11-07] MEDS: SERTRALINE HCL 50 MG TAB PO SCH (08:09)
--- NOTE | 2021-11-07 15:40 | P.PN ---
Subjective Date of Service: 11/07/21 Chief Complaint: Parker hematuria, supratherapeutic INR No new complaint Urine looks clear. Patient experienced suprapubic pain several hours after the CT scan yesterday. He states the pain has resolved. Physical Examination - Vital Signs Temperature: 97.4 F Blood Pressure: 129/66 Pulse: 74 Respirations: 18 Pulse Ox (%): 95 Assessment And Plan - Plan Physical exam GEN: Alert, oriented, NAD, morbidly obese HEENT: Normal conjunctiva, sclera anicteric CV: irregularly irregular rhythm/rate, chronic lymphedema of lower extremities. Pulm: Breath sounds diminished bilateral, no rhonchi or rales. ABD: Soft, non-tender, +hernias, obese abdomen. Skin: Bilateral lower extremity venous stasis dermatitis and skin xerosis. Neuro: Normal speech, normal affect Genitourinary: sims with clear urine in the urine bag. Problem List Parker hematuria UTI KAYLAH on CKD 3 supratherapeutic INR chronic atrial fibrillation on Coumadin Chronic diastolic CHF Chronic indwelling Sims catheter NIDDM 2 Hypertension Supratherapeutic PT/INR likely secondary to drug-drug interaction. Patient received vitamin K in the ED prior to admission s/p Vit K on 10/29 and 10/30, FFP given 10/30 Hematuria resolved. INR is now subtherapeutic. Hemoglobin stable. Unclear etiology of hematuria. Source of the hematuria is unknown. Status post cystoscopy by urology-no source identified. Hematuria deemed secondary to chronic bladder infection/colonization in the context of severely elevated INR. Dr. Lopez-urology recommend CT urogram to assess patient's upper urinary tract. CT urogram unremarkable right right nonobstructing nephrolithiasis. Has history of recurrent UTIs, UA and culture sent on 10/29, concerning for possible UTI, initiated antibiotics on 10/29 Urine culture grew MRSA. ID suspect colonization. Patient has been improving, r emains afebrile, resolution of leukocytosis on Unasyn + gent, ID changed antibiotics to Unasyn and doxycycline. Bladder irrigation discontinued, three-way Sims catheter is still in place. We will resume Coumadin and monitor PT and INR. Renal function initially worsened and nephrology was consulted. The cause of KAYLAH is multifactorial, possible intravascular depletion versus hypotension versus obstruction from blood clots possibly from obstruction as well KAYLAH resolved. Patient patient had been on Bumex for diuresis. Bumex resumed to prevent volume overload. Nephrology also added Aldactone. Respiratory status is stable. Continue Cardizem for atrial fibrillation. Metoprolol on hold due to soft blood pressure. Heart rate is controlled on the Cardizem. Insulin sliding scale for glucose management. Disposition: Social service assisting with arrangement for long-term care placement.
[2021-11-07 16:31] LABS: Protime INR 1.28
[2021-11-07] MEDS: CEPACOL LOZENGES PO PRN (16:43)
[2021-11-07] MEDS: WARFARIN SODIUM 1 MG TAB PO SCH (16:43)
[2021-11-07] MEDS ORDERED: NA CHLORIDE 0.9% 0 ML ONE (19:20)
--- NOTE | 2021-11-07 19:42 | P.PN ---
Date of Service: 11/07/21 Vital Signs Temp Pulse Resp BP Pulse Ox 97.6 F 86 18 121/67 96 11/07/21 15:50 11/07/21 15:50 11/07/21 15:50 11/07/21 15:50 11/07/21 15:50 Medications Acetaminophen (Acetaminophen 500 Mg Tab) 500 mg PO Q6H PRN PRN Reason: Pain scale 2-4 (Mild) Last Admin: 10/30/21 12:59 Dose: 500 mg Documented by: Hydrocodone Bitart/Acetaminophen (Hydrocodone/Apap 5/325 Mg Tab) 1 tab PO Q6H PRN PRN Reason: Pain scale 5-7 (Moderate) Bumetanide (Bumetanide 1 Mg Tablet) 1 mg PO DAILY [facility] Last Admin: 11/07/21 08:03 Dose: 1 mg Documented by: Cetylpyridinium Chloride/Menthol (Cepacol Lozenges) 1 shira PO Q4H PRN PRN Reason: COUGH Last Admin: 11/07/21 16:43 Dose: 1 shira Documented by: Cholecalciferol (Vitamin D 5,000 Unit Cap) 5,000 unit PO DAILY [facility] Last Admin: 11/07/21 08:02 Dose: 5,000 unit Documented by: Diltiazem HCl (Diltiazem Hcl 120 Mg Sr Cap) 120 mg PO BID [facility] Last Admin: 11/07/21 08:03 Dose: Not Given Documented by: Docusate Sodium (Docusate Na 100 Mg Cap) 100 mg PO BID [facility] [place] Last Admin: 11/07/21 08:04 Dose: 100 mg Documented by: Doxycycline Monohydrate (Doxycycline 100 Mg Cap) 100 mg PO BID [facility] Stop: 11/13/21 21:01 Last Admin: 11/07/21 08:03 Dose: 100 mg Documented by: Enteral Nutritional Formula (Nepro Shake 237 Ml Can) 237 ml PO TID [facility] Last Admin: 11/07/21 13:23 Dose: Not Given Documented by: Hydromorphone HCl (Hydromorphone Hcl 0.5 Mg/0.5 Ml Inj) 0.5 mg IV Q8H PRN PRN Reason: Pain scale 8-10 (Severe) Last Admin: 11/07/21 14:56 Dose: 0.5 mg Documented by: Ampicillin Sodium/Sulbactam (Sodium 3 gm/ Sodium Chloride) 100 mls @ 200 mls/hr IVPB Q12HR [facility] [place] Last Admin: 11/07/21 08:04 Dose: 100 mls Documented by: Insulin Human Regular (Insulin -Regular Human 50 Unit/0.5 Ml Ml) 0 unit SQ ACHS [facility]; Protocol Last Admin: 11/07/21 15:49 Dose: Not Given Documented by: Melatonin (Melatonin 5 Mg Tablet) 5 mg PO BEDTIME PRN PRN PRN Reason: INSOMNIA Last Admin: 11/06/21 21:08 Dose: 5 mg Documented by: Ondansetron HCl (Ondansetron 4 Mg/2 Ml Vial) 4 mg IV Q6HP PRN PRN Reason: NAUSEA / VOMITING Oxybutynin Chloride (Oxybutynin Chloride 5 Mg Tab) 5 mg PO TID [facility] [place] Last Admin: 11/07/21 13:22 Dose: 5 mg Documented by: Pantoprazole Sodium (Pantoprazole 40mg Tablet) 40 mg PO DAILY [facility] [place]; Protocol Last Admin: 11/07/21 08:02 Dose: 40 mg Documented by: Sertraline HCl (Sertraline Hcl 50 Mg Tab) 75 mg PO DAILY [facility] [place] Last Admin: 11/07/21 08:09 Dose: 75 mg Documented by: Sodium Chloride (Flush Normal Saline 10 Ml) 10 ml IV BID [facility] [place] Last Admin: 11/07/21 08:05 Dose: 10 ml Documented by: Sodium Chloride (Sodium Chloride Irrig Solution 3,000 Ml Bag) 0 ml IRR CONT [facility] [place] Last Admin: 11/03/21 10:35 Dose: 3,000 ml Documented by: Spironolactone (Spironolactone 25 Mg Tablet) 50 mg PO DAILY [facility] [place] Last Admin: 11/07/21 08:04 Dose: 50 mg Documented by: Warfarin Sodium (Warfarin Sodium 1 Mg Tab) 1 mg PO DAILY 5 PM [facility] [place] Last Admin: 11/07/21 16:43 Dose: 1 mg Documented by: Assessment/ Plan: Nephrology No dyspnea +FINK No chest pain. Weakness. Bladder spasm. No acute events overnight Vitals, medications, blood work and imaging reviewed in the chart General: In no apparent distress, Oriented x3, Cooperative HEENT: Atraumatic Neck: Supple Respiratory: Normal respiratory effort Cardiovascular: Regular rate/rhythm, Edema Gastrointestinal: Soft and benign, No guarding Musculoskeletal: No clubbing, No contractures Integumentary: No rashes, No cyanosis Neurological: Normal speech Blood work reviewed in the chart. Imagings Data: EXAM DESCRIPTION: CTAbdomen Pelvis Wo Contrast - 10/30/2021 8:25 a CLINICAL HISTORY: suprapubic pain, elevated INR, worse renal fxn COMPARISON: Abdomen Pelvis W Contrast dated 09/24/2021; Stone Protocol dated 04/22/2018; Abdomen Pelvis W Contrast dated 08/21/2016; [facility] Protocol dated 05/24/2016 TECHNIQUE: CT of the abdomen and pelvis was performed. All CT scans are performed using dose optimization technique as appropriate and may include automated exposure control or mA/KV adjustment according to patient size. FINDINGS: Lower chest: Small left pleural effusion. Dependent atelectasis. Liver: No acute abnormality or suspicious lesions. Biliary: Cholecystectomy. Similar extrahepatic biliary ductal dilatation which may be related to the postcholecystectomy state. Stomach: Angel-en-Y gastric bypass. Duodenum: No significant focal abnormality. Pancreas: No significant abnormality. Spleen: No significant abnormality. Adrenal: No suspicious lesions. Kidney/ureter: No hydronephrosis. Nonobstructive right nephrolithiasis. Left renal cortical thinning. No hydronephrosis. Retroperitoneum: No retroperitoneal adenopathy. Vascular: IVC filter. Atherosclerosis. Bowel: No significant focal abnormality. Peritoneum: Abdominal wall laxity. Fat containing right inguinal hernia. Bladder: The bladder is mostly decompressed around a Hannah catheter. Gas within the bladder may be from instrumentation. Reproductive: No adnexal masses. Bones: No acute fracture. Degenerative changes are present in the hips and spine. Other: n/a IMPRESSION: No acute intra-abdominal or pelvic finding. Hannah catheter within the bladder. Gas within the bladder is presumably related to instrumentation. No hydronephrosis. EXAM DESCRIPTION: RAD - Chest Single View - 10/30/2021 5:52 am CLINICAL HISTORY: SOB COMPARISON: Chest Single View dated 09/30/2021; Chest Single View dated 09/24/2021; Chest Single View dated 12/13/2019; Chest Single View dated 07/12/2019 FINDINGS: Lines: None. Lungs: Worsened aeration of the lungs bilaterally with increasing diffuse opacities and prominence of the pulmonary vasculature. Pleural: Small effusions difficult to exclude. Cardiac: Cardiomegaly . Bones: No acute fractures. Other: IMPRESSION: Worsened pulmonary edema compared with 09/30/2021. EXAM DESCRIPTION: US - Renal Ultrasound-Complete - 10/30/2021 6:14 am CLINICAL HISTORY: KAYLAH COMPARISON: Abdomen Pelvis W Contrast dated 09/24/2021 FINDINGS: Limited by patient's body habitus. The right kidney measures 9.1 cm. No hydronephrosis. The left kidney was not visualized. IMPRESSION: Markedly limited due to body habitus. The left kidney was not v isualized. No right-sided hydronephrosis. Conclusions/Impression: KAYLAH in the setting of hypotension. CKD III Hematuria due to trauma -No NSAIDs Hypokalemia -Continue Spironolactone HTN with CKD/ CHF complicated by hypotension -Continue Diltiazem Diastolic CHF, chronic -Low sodium diet -Continue Bumex -Continue Spironolactone DM II with hyperglycemia -RISS Moderate malnutrition Hypoalbuminemia -Continue Nepro Anemia in chronic illness Iron deficiency 14% -Monitor H&H -sp IV iron Bladder spasm with pain -Continue Oxybutynin
[2021-11-07] MEDS: MELATONIN 5 MG TABLET PO PRN (20:26)
[2021-11-08] MEDS: HYDROMORPHONE HCL 0.5 MG/0.5 ML INJ IV PRN ×3 (05:14→23:30)
[2021-11-08 05:20] VITALS: BMI 60.7
[2021-11-08 06:17] LABS: Absolute Lymphocytes (CBC) 1.5 K/uL (0.7-4.9); Hematocrit 35.2 % (39.6-49.0); Lymphocytes % 19.8 % (15.3-44.8); RBC Red Blood Cell Count 3.71 M/uL (4.33-5.43)
[2021-11-08 06:25] LABS: Potassium 3.8 mmol/L (3.5-5.1)
[2021-11-08] MEDS: INSULIN -REGULAR HUMAN 50 UNIT/0.5 ML ML SQ SCH ×4 (07:30→20:49)
[2021-11-08] MEDS: BUMETANIDE 1 MG TABLET PO SCH (08:36)
[2021-11-08] MEDS: SPIRONOLACTONE 25 MG TABLET PO SCH (08:37)
[2021-11-08] MEDS: PANTOPRAZOLE 40MG TABLET PO SCH (08:39)
[2021-11-08] MEDS: DOCUSATE NA 100 MG CAP PO SCH ×2 (08:40→20:46)
[2021-11-08] MEDS: VITAMIN D 5,000 UNIT CAP PO SCH (08:40)
[2021-11-08] MEDS: DOXYCYCLINE 100 MG CAP PO SCH ×2 (08:41→20:46)
[2021-11-08] MEDS: DILTIAZEM HCL 120 MG SR CAP PO SCH ×2 (08:41→20:47)
[2021-11-08] MEDS: SERTRALINE HCL 50 MG TAB PO SCH (08:42)
[2021-11-08] MEDS: AMPICILLIN/SULBACT 3 GM in NA CHLORIDE 0.9% 100 ML IVPB SCH ×2 (08:42→20:50)
[2021-11-08] MEDS: OXYBUTYNIN CHLORIDE 5 MG TAB PO SCH ×3 (08:43→20:48)
[2021-11-08] MEDS: NEPRO SHAKE 237 ML CAN PO SCH ×3 (09:00→20:49)
[2021-11-08] MEDS: HYDROCODONE/APAP 5/325 MG TAB PO PRN ×3 (09:00→20:47)
[2021-11-08] MEDS ORDERED: POTASSIUM CL SA 10 MEQ TAB PO ONE (09:00)
--- NOTE | 2021-11-08 12:56 | P.PN ---
Subjective Date of Service: 11/08/21 Chief Complaint: Parker hematuria, supratherapeutic INR patient has no new complaint. Urine remain clear He denies any suprapubic pain today. Physical Examination - Vital Signs Temperature: 97.4 F Blood Pressure: 116/70 Pulse: 94 Respirations: 22 Pulse Ox (%): 93 Assessment And Plan - Plan Physical exam GEN: Alert, oriented, NAD, morbidly obese HEENT: Normal conjunctiva, sclera anicteric CV: irregularly irregular rhythm/rate, chronic lymphedema of lower extremities. Pulm: Breath sounds diminished bilateral, no rhonchi or rales. ABD: Soft, non-tender, +hernias, obese abdomen. Skin: Bilateral lower extremity venous stasis dermatitis and skin xerosis. Neuro: Normal speech, normal affect Genitourinary: sims with clear urine in the urine bag. Problem List Parker hematuria UTI KAYLAH on CKD 3 supratherapeutic INR chronic atrial fibrillation on Coumadin Chronic diastolic CHF Chronic indwelling Sims catheter NIDDM 2 Hypertension Supratherapeutic PT/INR likely secondary to drug-drug interaction. Patient received vitamin K in the ED prior to admission s/p Vit K on 10/29 and 10/30, FFP given 10/30 Hematuria resolved. INR is now subtherapeutic. Hemoglobin stable. Unclear etiology of hematuria. Source of the hematuria is unknown. Status post cystoscopy by urology-no source identified. Hematuria deemed secondary to chronic bladder infection/colonization in the context of severely elevated INR. CT urogram unremarkable right right nonobstructing nephrolithiasis. Has history of recurrent UTIs, UA and culture sent on 10/29, concerning for possible UTI, initiated antibiotics on 10/29 Urine culture grew MRSA. ID suspect colonization. Patient has been improving, remains afebrile, resolution of leukocytosis on Unasyn + gent, ID changed antibiotics to Unasyn and doxycycline. Infectious disease to follow for antibiotic management. Bladder irrigation discontinued, three-way Sims catheter is still in place. Dr. Morris plan to change Sims catheter to 18Fr coud tipped two-way Continue Coumadin and monitor PT and INR. Renal function initially worsened and nephrology was consulted. The cause of KAYLAH is multifactorial, possible intravascular depletion versus hypotension versus obstruction from blood clots possibly from obstruction as well. KAYLAH resolved. Patient patient had been on Bumex for diuresis. Bumex resumed to prevent volume overload. Nephrology also added Aldactone. Respiratory status is stable. Continue Cardizem for atrial fibrillation. Metoprolol on hold due to soft blood pressure. Heart rate is controlled on the Cardizem. Insulin sliding scale for glucose management. Disposition: Social service assisting with arrangement for long-term care placement.
[2021-11-08 13:38] LABS: Protime INR 1.28
[2021-11-08] MEDS: WARFARIN SODIUM 1 MG TAB PO SCH (17:02)
[2021-11-08] MEDS: CEPACOL LOZENGES PO PRN (17:03)
[2021-11-08] MEDS: MELATONIN 5 MG TABLET PO PRN (20:48)
[2021-11-09] MEDS: HYDROCODONE/APAP 5/325 MG TAB PO PRN ×2 (05:37→14:08)
[2021-11-09 06:19] LABS: Protime INR 1.21
[2021-11-09 06:21] LABS: Potassium 3.7 mmol/L (3.5-5.1)
[2021-11-09] MEDS: INSULIN -REGULAR HUMAN 50 UNIT/0.5 ML ML SQ SCH ×4 (07:30→20:15)
[2021-11-09] MEDS: NEPRO SHAKE 237 ML CAN PO SCH ×3 (09:00→20:13)
[2021-11-09] MEDS ORDERED: POTASSIUM CL SA 10 MEQ TAB PO ONE (09:00)
[2021-11-09] MEDS: DOXYCYCLINE 100 MG CAP PO SCH ×2 (09:16→20:03)
[2021-11-09] MEDS: VITAMIN D 5,000 UNIT CAP PO SCH (09:16)
[2021-11-09] MEDS: SERTRALINE HCL 50 MG TAB PO SCH (09:17)
[2021-11-09] MEDS: DOCUSATE NA 100 MG CAP PO SCH ×2 (09:17→20:03)
[2021-11-09] MEDS: SPIRONOLACTONE 25 MG TABLET PO SCH (09:17)
[2021-11-09] MEDS: DILTIAZEM HCL 120 MG SR CAP PO SCH ×2 (09:17→20:03)
[2021-11-09] MEDS: PANTOPRAZOLE 40MG TABLET PO SCH (09:17)
[2021-11-09] MEDS: AMPICILLIN/SULBACT 3 GM in NA CHLORIDE 0.9% 100 ML IVPB SCH ×2 (09:17→20:02)
[2021-11-09] MEDS: BUMETANIDE 1 MG TABLET PO SCH (09:17)
[2021-11-09] MEDS: OXYBUTYNIN CHLORIDE 5 MG TAB PO SCH ×3 (09:17→20:03)
[2021-11-09] MEDS: HYDROMORPHONE HCL 0.5 MG/0.5 ML INJ IV PRN (11:47)
--- NOTE | 2021-11-09 12:16 | P.PN ---
Subjective Date of Service: 11/09/21 Chief Complaint: Parker hematuria, supratherapeutic INR patient has no new complaint. Urine remain clear Physical Examination - Vital Signs Temperature: 97.0 F Blood Pressure: 126/56 Pulse: 81 Respirations: 22 Pulse Ox (%): 95 Assessment And Plan - Plan Physical exam GEN: Alert, oriented, NAD, morbidly obese HEENT: Normal conjunctiva, sclera anicteric CV: irregularly irregular rhythm/rate, chronic lymphedema of lower extremities. Pulm: Breath sounds diminished bilateral, no rhonchi or rales. ABD: Soft, non-tender, +hernias, obese abdomen. Skin: Bilateral lower extremity venous stasis dermatitis and skin xerosis. Neuro: Normal speech, normal affect Genitourinary: sims with clear urine in the urine bag. Problem List Parker hematuria UTI KAYLAH on CKD 3 supratherapeutic INR chronic atrial fibrillation on Coumadin Chronic diastolic CHF Chronic indwelling Sims catheter NIDDM 2 Hypertension Supratherapeutic PT/INR likely secondary to drug-drug interaction. Patient received vitamin K in the ED prior to admission s/p Vit K on 10/29 and 10/30, FFP given 10/30 Hematuria resolved. INR is now subtherapeutic. Hemoglobin stable. Unclear etiology of hematuria. Source of the hematuria is unknown. Status post cystoscopy by urology-no source identified. Hematuria deemed secondary to chronic bladder infection/colonization in the context of severely elevated INR. CT urogram unremarkable right right nonobstructing nephrolithiasis. Has history of recurrent UTIs, UA and culture sent on 10/29, concerning for possible UTI, initiated antibiotics on 10/29 Urine culture grew MRSA. ID suspect colonization. Patient has been improving, remains afebrile, resolution of leukocytosis on Unasyn + gent, ID changed antibiotics to Unasyn and doxycycline. Infectious disease to follow for antibiotic management. Bladder irrigation discontinued, three-way Sims catheter is still in place. Dr. Morris plan to change Sims catheter to 18Fr coud tipped two-way. Continue Coumadin and monitor PT and INR. Renal function initially worsened and nephrology was consulted. The cause of KAYLAH is multifactorial, possible intravascular depletion versus hypotension versus obstruction from blood clots possibly from obstruction as well. KAYLAH resolved. Patient patient had been on Bumex for diuresis. Continue Bumex. Nephrology also added Aldactone. Respiratory status is stable. Continue Cardizem for atrial fibrillation. Metoprolol on hold due to soft blood pressure. Heart rate is controlled on the Cardizem. Insulin sliding scale for glucose management. Disposition: Social service assisting with arrangement for long-term care placement.
[2021-11-09] MEDS: WARFARIN SODIUM 1 MG TAB PO SCH (16:25)
[2021-11-10] MEDS: HYDROMORPHONE HCL 0.5 MG/0.5 ML INJ IV PRN ×2 (05:01→13:41)
[2021-11-10 06:03] LABS: Absolute Lymphocytes (CBC) 1.7 K/uL (0.7-4.9); Hematocrit 33.7 % (39.6-49.0); Lymphocytes % 23.2 % (15.3-44.8); MPV 7.2 fL (7.6-11.3); RBC Red Blood Cell Count 3.58 M/uL (4.33-5.43)
[2021-11-10 06:04] LABS: Protime INR 1.27
[2021-11-10 06:18] LABS: Potassium 3.8 mmol/L (3.5-5.1)
[2021-11-10] MEDS: INSULIN -REGULAR HUMAN 50 UNIT/0.5 ML ML SQ SCH ×4 (07:30→21:00)
[2021-11-10] MEDS: DILTIAZEM HCL 120 MG SR CAP PO SCH ×2 (09:04→20:44)
[2021-11-10] MEDS: DOXYCYCLINE 100 MG CAP PO SCH ×2 (09:04→20:44)
[2021-11-10] MEDS: NEPRO SHAKE 237 ML CAN PO SCH ×3 (09:05→20:45)
[2021-11-10] MEDS: OXYBUTYNIN CHLORIDE 5 MG TAB PO SCH ×3 (09:05→20:44)
[2021-11-10] MEDS: SERTRALINE HCL 50 MG TAB PO SCH (09:05)
[2021-11-10] MEDS: SPIRONOLACTONE 25 MG TABLET PO SCH (09:05)
[2021-11-10] MEDS: DOCUSATE NA 100 MG CAP PO SCH ×2 (09:05→20:44)
[2021-11-10] MEDS: BUMETANIDE 1 MG TABLET PO SCH (09:05)
[2021-11-10] MEDS: PANTOPRAZOLE 40MG TABLET PO SCH (09:05)
[2021-11-10] MEDS: VITAMIN D 5,000 UNIT CAP PO SCH (09:05)
[2021-11-10] MEDS: AMPICILLIN/SULBACT 3 GM in NA CHLORIDE 0.9% 100 ML IVPB SCH ×2 (09:06→20:45)
[2021-11-10] MEDS: HYDROCODONE/APAP 5/325 MG TAB PO PRN ×2 (09:18→17:26)
--- NOTE | 2021-11-10 13:13 | P.PN ---
Subjective Date of Service: 11/10/21 Chief Complaint: Parker hematuria, supratherapeutic INR Patient seen examined at bedside, tolerating antibiotics well with no N/V/D. Review of Systems 10-point ROS is otherwise unremarkable Physical Examination - Vital Signs Temperature: 97.3 F Blood Pressure: 135/63 Pulse: 89 Respirations: 16 Pulse Ox (%): 94 - Studies Laboratory Last Values WBC 14.20 K/uL (4.3-10.9) H D 10/29/21 15:41 RBC 4.17 M/uL (4.33-5.43) L 10/29/21 15:41 Hgb 13.1 g/dL (13.6-17.9) L 10/29/21 15:41 Hct 39.7 % (39.6-49.0) 10/29/21 15:41 MCV 95.0 fL (80-100) 10/29/21 15:41 MCH 31.3 pg (27.0-35.0) 10/29/21 15:41 MCHC 33.0 g/dL (32.0-36.0) 10/29/21 15:41 RDW 14.0 % (12.1-15.2) 10/29/21 15:41 Plt Count 311 K/uL (152-406) 10/29/21 15:41 MPV 7.2 fL (7.6-11.3) L 10/29/21 15:41 Neutrophils % 81.8 % (41.7-73.7) H 10/29/21 10:58 Lymphocytes % 11.9 % (15.3-44.8) L 10/29/21 10:58 Monocytes % 4.3 % (3.3-12.3) 10/29/21 10:58 Eosinophils % 1.4 % (0-4.4) 10/29/21 10:58 Basophils % 0.6 % (0-1.3) 10/29/21 10:58 Absolute Neutrophils 8.1 K/uL (1.8-8.0) H 10/29/21 10:58 Absolute Lymphocytes 1.2 K/uL (0.7-4.9) 10/29/21 10:58 Absolute Monocytes 0.4 K/uL (0.1-1.3) 10/29/21 10:58 Absolute Eosinophils 0.1 K/uL (0-0.5) 10/29/21 10:58 Absolute Basophils 0.1 K/uL (0-0.5) 10/29/21 10:58 PT 112.6 SECONDS (9.5-12.5) H 10/29/21 10:58 INR 9.57 H* 10/29/21 10:58 Sodium 130 mmol/L (136-145) L 10/29/21 10:58 Potassium 4.2 mmol/L (3.5-5.1) 10/29/21 10:58 Chloride 89 mmol/L (98-107) L 10/29/21 10:58 Carbon Dioxide 33 mmol/L (21-32) H 10/29/21 10:58 BUN 24 mg/dL (7-18) H 10/29/21 10:58 Creatinine 1.56 mg/dL (0.55-1.3) H 10/29/21 10:58 Estimated GFR 43 mL/min (=/>90) L 10/29/21 10:58 Glucose 303 mg/dL (74-106) H 10/29/21 10:58 Calcium 9.1 mg/dL (8.5-10.1) 10/29/21 10:58 Magnesium 2.0 mg/dL (1.8-2.4) 10/29/21 10:58 Total Bilirubin 0.6 mg/dL (0.2-1.0) 10/29/21 10:58 Direct Bilirubin 0.4 mg/dL (0-0.2) H 10/29/21 10:58 AST 76 U/L (15-37) H 10/29/21 10:58 ALT 45 U/L (12-78) 10/29/21 10:58 Alkaline Phosphatase 151 U/L (45-117) H 10/29/21 10:58 Rapid Troponin I < 0.02 ng/mL (0.0-0.045) 10/29/21 10:58 NT-Pro-B Natriuret Pep 1311 pg/mL (<450) H 10/29/21 10:58 Serum Total Protein 8.4 g/dL (6.4-8.2) H 10/29/21 10:58 Albumin 2.3 g/dL (3.4-5.0) L 10/29/21 10:58 Globulin 6.1 g/dL (2.3-3.5) H 10/29/21 10:58 Albumin/Globulin Ratio 0.4 (1.1-1.8) L 10/29/21 10:58 SARS-CoV-2 Rap RNA(RT-PCR) Negative (NEGATIVE) 10/29/21 12:38 Assessment And Plan - Plan Physical exam General: Obese HEENT: Atraumatic, Normocephalic Neck: Supple, JVD not distended Respiratory: Clear to auscultation bilaterally, Normal air movement Cardiovascular: No edema, Regular rate/rhythm Gastrointestinal: Other (Several abdominal hernias) Assessment/plan UTI Urine culture obtained on 10/29 growing methicillin-resistant Staphylococcus aureus. Suspect colonization as patient has had indwelling Hannah catheter for the past 10 years in the history of multiple UTIs. Patient empirically placed on gentamicin and unasyn per urology recommendations, and was improving. Patient is status post bedside cystoscopic examination performed on 11/03. No lesions/tumor is identified. Urology recommended discontinuing gentamicin and placing patient on oral Bactrim+ unasyn. Also recommended discharging patient on monotherapy oral Bactrim for total antibiotic duration of 14 days. Agree with Urology recommendations, however patient is allergic to sulfa antibiotics- as such we have switched Bactrim with doxycycline which will still have MRSA coverage.. Patient initially started IV antibiotics on 10/30, has a antibiotic completion date of 11/13. Recommend following up with Urology outpatient. Parker hematuria Urology following, likely secondary to elevated INR and cystitis. Morbid obesity Anemia Protein caloric malnutrition In CHF Diabetes -medical management per primary team -plan of care discussed with Dr. Estrada -thank you for consultation
--- NOTE | 2021-11-10 13:36 | P.PN ---
Subjective Date of Service: 11/10/21 Chief Complaint: Parker hematuria, supratherapeutic INR patient has no new complaint except chronic back pain Urine remain clear Physical Examination - Vital Signs Temperature: 97.3 F Blood Pressure: 135/63 Pulse: 89 Respirations: 16 Pulse Ox (%): 94 Assessment And Plan - Plan Physical exam GEN: Alert, oriented, NAD. CV: irregularly irregular rhythm/rate, chronic lymphedema of lower extremities. Pulm: Breath sounds diminished bilateral, no rhonchi or rales. ABD: Soft, non-tender, +hernias, obese abdomen. Skin: Bilateral lower extremity venous stasis dermatitis and skin xerosis. Neuro: Normal speech, normal affect Genitourinary: sims with clear urine in the urine bag. Problem List Parker hematuria UTI KAYLAH on CKD 3 supratherapeutic INR chronic atrial fibrillation on Coumadin Chronic diastolic CHF Chronic indwelling Sims catheter NIDDM 2 Hypertension Chronic back pain Supratherapeutic PT/INR likely secondary to drug-drug interaction. Patient received vitamin K in the ED prior to admission s/p Vit K on 10/29 and 10/30, FFP given 10/30 Hematuria resolved. INR is now subtherapeutic. Hemoglobin stable. Unclear etiology of hematuria. Source of the hematuria is unknown. Status post cystoscopy by urology-no source identified. Hematuria deemed secondary to chronic bladder infection/colonization in the context of severely elevated INR. CT urogram unremarkable right right nonobstructing nephrolithiasis. Has history of recurrent UTIs, UA and culture sent on 10/29, concerning for possible UTI, initiated antibiotics on 10/29 Urine culture grew MRSA. ID suspect colonization. Patient has been improving, remains afebrile, resolution of leukocytosis on Unasyn + gent, ID changed antibiotics to Unasyn and doxycycline. Infectious disease to follow for antibiotic management. Bladder irrigation discontinued, three-way Sims catheter is still in place. Dr. Morris plan to change Sims catheter to 18Fr coud tipped two-way. Adjust Coumadin dose for a target INR of 2-3 Renal function initially worsened and nephrology was consulted. The cause of KAYLAH is multifactorial, possible intravascular depletion versus hypotension versus obstruction from blood clots possibly from obstruction as well. KAYLAH re solved. Continue Bumex. Nephrology also added Aldactone. Respiratory status is stable. Continue Cardizem for atrial fibrillation. Metoprolol on hold due to soft blood pressure. Heart rate is controlled on the Cardizem. Insulin sliding scale for glucose management. Opioids as needed for chronic back pain. Disposition: Social service assisting with arrangement for long-term care placement.
[2021-11-10] MEDS ORDERED: WARFARIN SODIUM 2 MG TAB PO SCH (17:00)
[2021-11-10] MEDS ORDERED: WARFARIN SODIUM 5 MG TAB PO SCH (17:00)
[2021-11-10] MEDS: MELATONIN 5 MG TABLET PO PRN (20:43)
[2021-11-11] MEDS: HYDROCODONE/APAP 5/325 MG TAB PO PRN ×3 (03:30→20:30)
[2021-11-11 05:49] LABS: Absolute Lymphocytes (CBC) 1.6 K/uL (0.7-4.9); Hematocrit 34.5 % (39.6-49.0); MPV 7.3 fL (7.6-11.3); Protime INR 1.25; RBC Red Blood Cell Count 3.68 M/uL (4.33-5.43)
[2021-11-11 06:04] LABS: Potassium 3.7 mmol/L (3.5-5.1)
--- NOTE | 2021-11-11 06:13 | P.PN ---
Date of Service: 11/11/21 Subjective: Overall states she has been doing better, breathing comfortably on room air, no longer having any bleeding in his urine. Continues with some lower back pain since the fall/drop, slowly improving No new complaints. He is unsure when his last bowel movement was, passing flatus. ROS: 10 point ROS as noted above, otherwise negative Physical exam GEN: Alert, oriented, NAD. CV: irregularly irregular rhythm/ regular rate, chronic lymphedema of lower extremities. Pulm: Breath sounds diminished bilateral, nonlabored respirations on room air ABD: Soft, non-tender, +hernias, obese abdomen. Skin: Bilateral lower extremity venous stasis dermatitis Neuro: Normal speech, normal affect Genitourinary: sims with clear urine in bag. Problem List Parker hematuria, secondary to UtI and supratherapeutic INR, resolved UTI KAYLAH on CKD 3, resolved supratherapeutic INR resolved chronic atrial fibrillation on Coumadin Chronic diastolic CHF Chronic indwelling Sims catheter NIDDM 2 Hypertension Chronic back pain Supratherapeutic PT/INR likely secondary to drug-drug interaction. Patient received vitamin K in the ED prior to admission s/p Vit K on 10/29 and 10/30, FFP given 10/30 Hematuria resolved. INR is now subtherapeutic. Hemoglobin stable. continue warfarin, goal INR: 2-3 suspect will take some time to get therapeutic due to Vit K received Unclear etiology of hematuria. Status post cystoscopy by urology-no source identified. Hematuria deemed secondary to chronic bladder infection/colonization in the context of severely elevated INR. CT urogram unremarkable right nonobstructing nephrolithiasis. Has history of recurrent UTIs, UA and culture sent on 10/29, concerning for possible UTI, initiated antibiotics on 10/29 Urine culture grew MRSA. ID suspect colonization. Patient has been improving, remains afebrile, resolution of leukocytosis on Unasyn + gent, ID changed antibiotics to Unasyn and doxycycline. Infectious disease to follow for antibiotic management. Bladder irrigation discontinued, three-way Sims catheter is still in place. Dr. Morris plan to change Sims catheter to 18Fr coud tipped two-way. Renal function initially worsened and nephrology was consulted. The cause of KAYLAH is multifactorial, possible intravascular depletion versus hypotension versus obstruction from blood clots possibly from obstruction as well. KAYLAH resolved. Continue Bumex. Nephrology also added Aldactone. Respiratory status is stable. Continue Cardizem for atrial fibrillation. Metoprolol on hold due to soft blood pressure. Heart rate is controlled on the Cardizem. Insulin sliding scale for glucose management. Opioids as needed for chronic back pain. Disposition: Social service assisting with arrangement for long-term care placement. anticipate dc in 1-2 days
[2021-11-11] MEDS: INSULIN -REGULAR HUMAN 50 UNIT/0.5 ML ML SQ SCH ×4 (07:30→20:43)
[2021-11-11] MEDS: DOCUSATE NA 100 MG CAP PO SCH ×2 (08:45→20:25)
[2021-11-11] MEDS: OXYBUTYNIN CHLORIDE 5 MG TAB PO SCH ×3 (08:45→20:25)
[2021-11-11] MEDS: VITAMIN D 5,000 UNIT CAP PO SCH (08:45)
[2021-11-11] MEDS: SERTRALINE HCL 50 MG TAB PO SCH (08:45)
[2021-11-11] MEDS: NEPRO SHAKE 237 ML CAN PO SCH ×3 (08:46→20:32)
[2021-11-11] MEDS: DOXYCYCLINE 100 MG CAP PO SCH ×2 (08:46→20:25)
[2021-11-11] MEDS: BUMETANIDE 1 MG TABLET PO SCH (08:46)
[2021-11-11] MEDS: SPIRONOLACTONE 25 MG TABLET PO SCH (08:46)
[2021-11-11] MEDS: PANTOPRAZOLE 40MG TABLET PO SCH (08:46)
[2021-11-11] MEDS: AMPICILLIN/SULBACT 3 GM in NA CHLORIDE 0.9% 100 ML IVPB SCH ×2 (08:59→20:24)
[2021-11-11] MEDS: HYDROMORPHONE HCL 0.5 MG/0.5 ML INJ IV PRN ×2 (08:59→16:56)
[2021-11-11] MEDS: DILTIAZEM HCL 120 MG SR CAP PO SCH ×2 (08:59→20:26)
--- NOTE | 2021-11-11 11:03 | PN ---
Subjective: The patient is seen in room 221 on second floor at [facility]. The patient is alert, awake, comfortable, able to answer questions appropriately. Does not seem to be in any distress. Breathing comfortably. The patient states that he is not able to walk and this is a chronic problem for him, nothing new. The patient seems to be at baseline in terms of his health any he feels well currently as per his own assessment. Objective: Vital Signs: The patient's vitals are stable. Blood pressure 117/59 last, before that . Pulse is 80 and regular, respirations are around 14 and comfortable, O2 sats are 95% on room air. Lungs: Clear to auscultation anteriorly. Abdomen: Soft. The patient is obese. Bowel sounds are positive. Extremities: Reveal significant edema and venous congestion, venous stasis changes that are chronic. On physical examination further, the patient does not have any pain. Laboratory Data: Reviewed. Labs show WBC count 6.9, hemoglobin 11.4, hematocrit 34.5, platelet coun t of 241. Chemistries; sodium 135, potassium 3.7, chloride 99, bicarb 27, BUN is 22, creatinine 1.72 , glucose was 183. Assessment And Plan: 1.Acute kidney injury/chronic kidney disease. The patient's renal function may be close to baseline now. The patient states that he does have chronic kidney disease. Follows with a insurance loss assessor in [facility]. Now that he will be going to a rehabilitation facility if that is locally located or another city, he may need to follow up with another insurance loss assessor for convenience. If he is placed in the or ea and wants to come see us in clinic, I have given him information on our clinic numbers and how to make appointment. The patient is very pleasant. He feels comfortable currently. He will need [facility] assessment and monitoring of his chronic kidney disease and residual renal function and management of the same going forward. He understands that for now this seems to be stable from renal point of view to be discharged to rehabilitation once that placement is available. /MEGHANA Voice ID: [id number] Report ID: [id number]
--- NOTE | 2021-11-11 11:43 | P.PN ---
Subjective Date of Service: 11/11/21 Chief Complaint: Parker hematuria, supratherapeutic INR Patient seen examined at bedside, no acute events. Review of Systems 10-point ROS is otherwise unremarkable Physical Examination - Vital Signs Temperature: 97.1 F Blood Pressure: 117/59 Pulse: 81 Respirations: 18 Pulse Ox (%): 95 - Studies Laboratory Last Values WBC 14.20 K/uL (4.3-10.9) H D 10/29/21 15:41 RBC 4.17 M/uL (4.33-5.43) L 10/29/21 15:41 Hgb 13.1 g/dL (13.6-17.9) L 10/29/21 15:41 Hct 39.7 % (39.6-49.0) 10/29/21 15:41 MCV 95.0 fL (80-100) 10/29/21 15:41 MCH 31.3 pg (27.0-35.0) 10/29/21 15:41 MCHC 33.0 g/dL (32.0-36.0) 10/29/21 15:41 RDW 14.0 % (12.1-15.2) 10/29/21 15:41 Plt Count 311 K/uL (152-406) 10/29/21 15:41 MPV 7.2 fL (7.6-11.3) L 10/29/21 15:41 Neutrophils % 81.8 % (41.7-73.7) H 10/29/21 10:58 Lymphocytes % 11.9 % (15.3-44.8) L 10/29/21 10:58 Monocytes % 4.3 % (3.3-12.3) 10/29/21 10:58 Eosinophils % 1.4 % (0-4.4) 10/29/21 10:58 Basophils % 0.6 % (0-1.3) 10/29/21 10:58 Absolute Neutrophils 8.1 K/uL (1.8-8.0) H 10/29/21 10:58 Absolute Lymphocytes 1.2 K/uL (0.7-4.9) 10/29/21 10:58 Absolute Monocytes 0.4 K/uL (0.1-1.3) 10/29/21 10:58 Absolute Eosinophils 0.1 K/uL (0-0.5) 10/29/21 10:58 Absolute Basophils 0.1 K/uL (0-0.5) 10/29/21 10:58 PT 112.6 SECONDS (9.5-12.5) H 10/29/21 10:58 INR 9.57 H* 10/29/21 10:58 Sodium 130 mmol/L (136-145) L 10/29/21 10:58 Potassium 4.2 mmol/L (3.5-5.1) 10/29/21 10:58 Chloride 89 mmol/L (98-107) L 10/29/21 10:58 Carbon Dioxide 33 mmol/L (21-32) H 10/29/21 10:58 BUN 24 mg/dL (7-18) H 10/29/21 10:58 Creatinine 1.56 mg/dL (0.55-1.3) H 10/29/21 10:58 Estimated GFR 43 mL/min (=/>90) L 10/29/21 10:58 Glucose 303 mg/dL (74-106) H 10/29/21 10:58 Calcium 9.1 mg/dL (8.5-10.1) 10/29/21 10:58 Magnesium 2.0 mg/dL (1.8-2.4) 10/29/21 10:58 Total Bilirubin 0.6 mg/dL (0.2-1.0) 10/29/21 10:58 Direct Bilirubin 0.4 mg/dL (0-0.2) H 10/29/21 10:58 AST 76 U/L (15-37) H 10/29/21 10:58 ALT 45 U/L (12-78) 10/29/21 10:58 Alkaline Phosphatase 151 U/L (45-117) H 10/29/21 10:58 Rapid Troponin I < 0.02 ng/mL (0.0-0.045) 10/29/21 10:58 NT-Pro-B Natriuret Pep 1311 pg/mL (<450) H 10/29/21 10:58 Serum Total Protein 8.4 g/dL (6.4-8.2) H 10/29/21 10:58 Albumin 2.3 g/dL (3.4-5.0) L 10/29/21 10:58 Globulin 6.1 g/dL (2.3-3.5) H 10/29/21 10:58 Albumin/Globulin Ratio 0.4 (1.1-1.8) L 10/29/21 10:58 SARS-CoV-2 Rap RNA(RT-PCR) Negative (NEGATIVE) 10/29/21 12:38 Assessment And Plan - Plan Physical exam General: Obese HEENT: Atraumatic, Normocephalic Neck: Supple, JVD not distended Respiratory: Clear to auscultation bilaterally, Normal air movement Cardiovascular: No edema, Regular rate/rhythm Gastrointestinal: Other (Several abdominal hernias) Assessment/plan UTI Urine culture obtained on 10/29 growing methicillin-resistant Staphylococcus aureus. Suspect colonization as patient has had indwelling Hannah catheter for the past 10 years in the history of multiple UTIs. Patient empirically placed on gentamicin and unasyn per urology recommendations, and was improving. Patient is status post bedside cystoscopic examination performed on 11/03. No lesions/tumor is identified. Urology recommended discontinuing gentamicin and placing patient on oral Bactrim+ unasyn. Also recommended discharging patient on monotherapy oral Bactrim for total antibiotic duration of 14 days. Agree with Urology recommendations, however patient is allergic to sulfa antibiotics- as such we have switched Bactrim with doxycycline which will still have MRSA coverage.. Patient initially started IV antibiotics on 10/30, has a antibiotic completion date of 11/13. Recommend following up with Urology outpatient. Parker hematuria Urology following, likely secondary to elevated INR and cystitis. Morbid obesity Anemia Protein caloric malnutrition In CHF Diabetes -medical management per primary team -plan of care discussed with Dr. Estrada -thank you for consultation
[2021-11-11] MEDS: POLYETHYL GLY 3350 17 GM/DOSE PO PRN (13:29)
[2021-11-11] MEDS ORDERED: POLYETHYL GLY 3350 17 GM/DOSE PO ONE (14:00)
[2021-11-11] MEDS ORDERED: LIDOCAINE JELLY 2% 5 ML SYRINGE TOP ONE (15:00)
[2021-11-11] MEDS ORDERED: WARFARIN SODIUM 5 MG TAB PO SCH (17:00)
--- NOTE | 2021-11-11 18:33 | CON ---
Reason For Followup: History of urinary retention and gross hematuria. History Of Present Illness: is a 81-year-old gentleman, morbidly obese with multiple medi april comorbidities, who presented with gross hematuria likely secondary to possible inflation of a Fol ey catheter in his prostatic fossa causing bleeding versus complicated urinary tract infection. Afte r CBI for several days and bladder irrigation, his urine finally cleared. A CT urogram was performed without any upper tract lesions seen. As a result, after his INR, which was significantly elevated, had resolved back to the desired target level, we decided to exchange the 24-Iraqi 3-way Hannah cath eter back to a 2-way Hannah catheter for the purposes of discharge. Because of the complex nature of the placement given his retracted phallus, the mid a massive infrapubic pannus on top of an abdominal pannus, Urology was required for that exchange. Urethral Hannah catheter exchange procedure note, complex: The patient has indwelling Hannah catheter. The outflow was clamped and his bladder was retrograde filled with normal saline attached to the CB I, which has been clamped for several days. I then, after filling his bladder, removed the catheter by deflating it of approximately 20 cc of sterile water. I then cleansed around the meatus and the g lans beneath the retracted phallus using Betadine and applied a lidocaine Uro-Jet for local anesthesi a. Once sufficiently anesthetized, I was then able to pass a 20-Iraqi 2-way Hannah catheter Coude ti pped into his bladder with ease and with return of the clear fluid instilled previously. [address] erile water was inserted into the balloon and the catheter was connected to a drainage bag. It was a lso connected to a StatLock and he tolerated the procedure well and without complications. Follow up in the Urology Clinic at least once every 6 months for surveillance evaluation if possible given his morbid obesity and immobility status. Ideally, antimicrobial prophylaxis would be provided at the time of catheter exchange, which apparently is being done by home care. Something as simple as a single dose of Bactrim, if he has no allergies would be sufficient at this point. WR/MODL Voice ID: [id number] Report ID: [id number]
[2021-11-11] MEDS ORDERED: NA CHLORIDE 0.9% 100 ML ONE (20:19)
[2021-11-11] MEDS: MELATONIN 5 MG TABLET PO PRN (20:30)
[2021-11-12 05:51] LABS: Magnesium 2.1 mg/dL (1.8-2.4); Potassium 3.9 mmol/L (3.5-5.1)
[2021-11-12 06:51] LABS: Protime INR 1.29
[2021-11-12] MEDS: INSULIN -REGULAR HUMAN 50 UNIT/0.5 ML ML SQ SCH ×4 (07:30→20:25)
[2021-11-12] MEDS: AMPICILLIN/SULBACT 3 GM in NA CHLORIDE 0.9% 100 ML IVPB SCH ×2 (08:08→20:22)
[2021-11-12] MEDS: SPIRONOLACTONE 25 MG TABLET PO SCH (08:08)
[2021-11-12] MEDS: DOCUSATE NA 100 MG CAP PO SCH ×2 (08:08→20:22)
[2021-11-12] MEDS: BUMETANIDE 1 MG TABLET PO SCH (08:09)
[2021-11-12] MEDS: SERTRALINE HCL 50 MG TAB PO SCH (08:09)
[2021-11-12] MEDS: VITAMIN D 5,000 UNIT CAP PO SCH (08:09)
[2021-11-12] MEDS: PANTOPRAZOLE 40MG TABLET PO SCH (08:09)
[2021-11-12] MEDS: DILTIAZEM HCL 120 MG SR CAP PO SCH ×2 (08:09→20:23)
[2021-11-12] MEDS: DOXYCYCLINE 100 MG CAP PO SCH ×2 (08:09→20:22)
[2021-11-12] MEDS: NEPRO SHAKE 237 ML CAN PO SCH ×3 (08:10→20:25)
[2021-11-12] MEDS: OXYBUTYNIN CHLORIDE 5 MG TAB PO SCH ×3 (08:19→20:23)
[2021-11-12] MEDS: HYDROMORPHONE HCL 0.5 MG/0.5 ML INJ IV PRN (08:19)
[2021-11-12] MEDS ORDERED: POTASSIUM CL SA 10 MEQ TAB PO ONE (09:00)
--- NOTE | 2021-11-12 11:24 | P.PN ---
Subjective Date of Service: 11/12/21 Chief Complaint: Parker hematuria, supratherapeutic INR Patient seen examined at bedside, no acute events. Still has yet to have BM. Review of Systems 10-point ROS is otherwise unremarkable Physical Examination - Vital Signs Temperature: 97.3 F Blood Pressure: 115/55 Pulse: 88 Respirations: 18 Pulse Ox (%): 94 Assessment And Plan - Plan Physical exam General: Obese HEENT: Atraumatic, Normocephalic Neck: Supple, JVD not distended Respiratory: Clear to auscultation bilaterally, Normal air movement Cardiovascular: No edema, Regular rate/rhythm Gastrointestinal: Other (Several abdominal hernias) Assessment/plan UTI Urine culture obtained on 10/29 growing methicillin-resistant Staphylococcus aureus. Suspect colonization as patient has had indwelling Hannah catheter for the past 10 years in the history of multiple UTIs. Patient empirically placed on gentamicin and unasyn per urology recommendations, and was improving. Patient is status post bedside cystoscopic examination performed on 11/03. No lesions/tumor is identified. Urology recommended discontinuing gentamicin and placing patient on oral Bactrim+ unasyn. Also recommended discharging patient on monotherapy oral Bactrim for total antibiotic duration of 14 days. Agree with Urology recommendations, however patient is allergic to sulfa antibiotics- as such we have switched Bactrim with doxycycline which will still have MRSA coverage.. Patient initially started IV antibiotics on 10/30, has a antibiotic completion date of 11/13. Recommend following up with Urology outpatient. Parker hematuria Urology following, likely secondary to elevated INR and cystitis. Morbid obesity Anemia Protein caloric malnutrition In CHF Diabetes -medical management per primary team -plan of care discussed with Dr. Estrada -thank you for consultation Physician Review: Patient Assessed, Agree with Above Assessment and Plan
--- NOTE | 2021-11-12 16:08 | P.PN ---
Date of Service: 11/12/21 Subjective: reports some sharp back pain when reached for something last night, lasted <1 minute Sims exchanged yesterday no new complaints ROS: 10 point ROS as noted above, otherwise negative Physical exam GEN: Alert, oriented, NAD. CV: irregularly irregular rhythm/ regular rate, chronic lymphedema of lower extremities. Pulm: nonlabored respirations on room air ABD: Soft, non-tender, +hernias, obese abdomen. Skin: Bilateral lower extremity venous stasis dermatitis Neuro: Normal speech, normal affect Genitourinary: sims with clear urine in bag. Problem List Parker hematuria, secondary to UtI and supratherapeutic INR, resolved UTI KAYLAH on CKD 3, resolved supratherapeutic INR resolved chronic atrial fibrillation on Coumadin Chronic diastolic CHF Chronic indwelling Sims catheter NIDDM 2 Hypertension Chronic back pain Supratherapeutic PT/INR likely secondary to drug-drug interaction. Patient received vitamin K in the ED prior to admission s/p Vit K on 10/29 and 10/30, FFP given 10/30 Hematuria resolved. INR is now subtherapeutic. Hemoglobin stable. continue warfarin, goal INR: 2-3 will take some time to get therapeutic due to Vit K received Unclear etiology of hematuria. Status post cystoscopy by urology-no source identified. Hematuria deemed secondary to chronic bladder infection/colonization in the context of severely elevated INR. CT urogram unremarkable right nonobstructing nephrolithiasis. Has history of recurrent UTIs, UA and culture sent on 10/29, concerning for possible UTI, initiated antibiotics on 10/29 Urine culture grew MRSA. ID suspect colonization. Patient has been improving, remains afebrile, resolution of leukocytosis on Unasyn + gent, ID changed antibiotics to Unasyn and doxycycline. Infectious disease to follow for antibiotic management. Bladder irrigation discontinued, three-way Sism catheter is still in place. Dr. Morris plan to change Sims catheter to 18Fr coud tipped two-way. Renal function initially worsened and nephrology was consulted. The cause of AK I is multifactorial, possible intravascular depletion versus hypotension versus obstruction from blood clots possibly from obstruction as well. KAYLAH resolved. Continue Bumex. Nephrology also added Aldactone. Respiratory status is stable. Continue Cardizem for atrial fibrillation. Metoprolol on hold due to soft blood pressure. Heart rate is controlled on the Cardizem. Insulin sliding scale for glucose management. Opioids as needed for chronic back pain. Disposition: Social service assisting with arrangement for long-term care placement. anticipate dc in 1-2 days
[2021-11-12] MEDS ORDERED: NA CHLORIDE 0.9% 1,000 ML IV SCH (17:00)
[2021-11-12] MEDS ORDERED: WARFARIN SODIUM 2 MG TAB PO SCH ×2 (17:00)
[2021-11-12] MEDS ORDERED: WARFARIN SODIUM 5 MG TAB PO SCH (17:00)
[2021-11-12] MEDS: HYDROCODONE/APAP 5/325 MG TAB PO PRN (17:18)
--- NOTE | 2021-11-12 17:23 | PN ---
Date of Progress Note: 11/12/2021 Subjective: The patient was seen and examined at bedside. He reports that he is having some back pa in, but otherwise denies any complaints. His legs are looking a lot better. He has been constipated for 10 days now. Physical Examination: Vital Signs: Have been reviewed and are stable. General: He is a morbidly obese male, in no acute distress. HEENT: Atraumatic head. Lungs: Auscultation of the lungs revealed bilateral equal air entry anteriorly with diminished breat h sounds at bases. Abdomen: Morbidly obese. Extremities: Lower extremities showed chronic venous congestive changes with some edema. Laboratory Data: Showing creatinine worsening to 1.8, sodium slightly low at 134, potassium of 3.9, and chloride of 99. CBC showing stable hemoglobin, hematocrit, and platelet count. Current Medications: Include ampicillin/sulbactam 3 g every 12 hours, Bumex 1 mg p.o. daily, diltiaz em, docusate, doxycycline, hydrocodone, melatonin, Nepro shake, warfarin, and spironolactone 50 mg a day. Impression: 1.Acute on chronic renal insufficiency. When the patient presented to the hospital, he was found to have some acute kidney injury related to possibly ATN, which is currently improving, but again he se ems to be having slightly worsening renal function. This could be related to over-diuresis versus fr om antibiotic-induced interstitial nephritis. We will request a repeat urinalysis and discontinue Bu neetu and monitor him closely. 2.Supratherapeutic INR leading to brandy hematuria, improved at this time. Dr. Morris has been foll owing. He is status post cystoscopy. 3.Urinary tract infection. The patient remains on Unasyn and doxycycline for methicillin-resistant Staphylococcus aureus. Plan: The patient's renal function is slightly worse. Continue to monitor closely and if renal func tion continues to worsen, we will need to consider changing antibiotic. Bactrim may not be a good id ea in his case because of his CKD. We will discuss further with Dr. Duarte as well. VV/MODL Voice ID: [id number] Report ID: [id number]
[2021-11-12] MEDS: MELATONIN 5 MG TABLET PO PRN (20:23)
[2021-11-13 04:10] LABS: Hematocrit 35.4 % (39.6-49.0); MPV 7.4 fL (7.6-11.3); Protime INR 1.49; RBC Red Blood Cell Count 3.75 M/uL (4.33-5.43)
[2021-11-13 04:25] LABS: Potassium 3.9 mmol/L (3.5-5.1)
--- NOTE | 2021-11-13 05:58 | P.PN ---
Date of Service: 11/13/21 Subjective: No acute events overnight. Patient without any new complaints. back pain slightly improved No nausea/vomiting, breathing comfortably on room air Awaiting to hear back if he will be transferred to the facility ROS: 10 point ROS as noted above, otherwise negative Physical exam GEN: Alert, oriented, NAD. CV: irregularly irregular rhythm/ regular rate, chronic lymphedema of lower extremities. Pulm: nonlabored respirations on room air ABD: Soft, non-tender, +hernias, obese abdomen. Skin: Bilateral lower extremity venous stasis dermatitis Neuro: Normal speech, normal affect Genitourinary: sims with clear urine in bag. Problem List Parker hematuria, secondary to UtI and supratherapeutic INR, resolved UTI KAYLAH on CKD 3, resolved supratherapeutic INR resolved chronic atrial fibrillation on Coumadin Chronic diastolic CHF Chronic indwelling Sims catheter NIDDM 2 Hypertension Chronic back pain Supratherapeutic PT/INR likely secondary to drug-drug interaction. Patient received vitamin K in the ED prior to admission s/p Vit K on 10/29 and 10/30, FFP given 10/30 Hematuria resolved. INR is now subtherapeutic. Improving Hemoglobin stable. continue warfarin, goal INR: 2-3 will take some time to get therapeutic due to Vit K received Unclear etiology of hematuria. Status post cystoscopy by urology-no source identified. Hematuria deemed secondary to chronic bladder infection/colonization in the context of severely elevated INR. CT urogram unremarkable right nonobstructing nephrolithiasis. Has history of recurrent UTIs, UA and culture sent on 10/29, concerning for possible UTI, initiated antibiotics on 10/29 Urine culture grew MRSA. ID suspect colonization. Patient has been improving, remains afebrile, resolution of leukocytosis on Unasyn + gent, ID changed antibiotics to Unasyn and doxycycline. Infectious disease to follow for antibiotic management. Bladder irrigation discontinued, three-way Sims catheter replaced with 18Fr coud tipped two-way by Dr. Morris on 11/11 Renal function initially worsened and nephrology was consulted. The cause of KAYLAH is multifactorial, possible intravascular depletion versus hypotension versus obstruction from blood clots possibly from obstruction as well. KAYLAH resolved. Nephrology dc'd bumex, renal function stable. continue aldactone. Respiratory status is stable. Continue Cardizem for atrial fibrillation. Metoprolol on hold due to soft blood pressure. Heart rate is controlled on the Cardizem. Insulin sliding scale for glucose management. Opioids as needed for chronic back pain. Disposition: Social service assisting with arrangement for long-term care placement. anticipate dc in 1-2 days
[2021-11-13] MEDS: HYDROCODONE/APAP 5/325 MG TAB PO PRN ×2 (08:48→19:01)
[2021-11-13] MEDS: PANTOPRAZOLE 40MG TABLET PO SCH (08:49)
[2021-11-13] MEDS: DOCUSATE NA 100 MG CAP PO SCH ×2 (08:49→20:12)
[2021-11-13] MEDS: SERTRALINE HCL 50 MG TAB PO SCH (08:49)
[2021-11-13] MEDS: VITAMIN D 5,000 UNIT CAP PO SCH (08:49)
[2021-11-13] MEDS: DOXYCYCLINE 100 MG CAP PO SCH ×2 (08:49→20:12)
[2021-11-13] MEDS: SPIRONOLACTONE 25 MG TABLET PO SCH (08:49)
[2021-11-13] MEDS: DILTIAZEM HCL 120 MG SR CAP PO SCH ×2 (08:49→20:27)
[2021-11-13] MEDS: OXYBUTYNIN CHLORIDE 5 MG TAB PO SCH ×3 (08:50→20:14)
[2021-11-13] MEDS: NEPRO SHAKE 237 ML CAN PO SCH ×3 (08:50→20:14)
[2021-11-13] MEDS: AMPICILLIN/SULBACT 3 GM in NA CHLORIDE 0.9% 100 ML IVPB SCH ×2 (08:50→20:13)
[2021-11-13] MEDS: INSULIN -REGULAR HUMAN 50 UNIT/0.5 ML ML SQ SCH ×4 (09:45→20:13)
--- NOTE | 2021-11-13 11:15 | P.PN ---
Subjective Date of Service: 11/13/21 Chief Complaint: Parker hematuria, supratherapeutic INR Patient seen examined at bedside, complete antibiotics today. Review of Systems 10-point ROS is otherwise unremarkable Physical Examination - Vital Signs Temperature: 98.3 F Blood Pressure: 113/65 Pulse: 98 Respirations: 20 Pulse Ox (%): 97 - Studies Laboratory Last Values WBC 14.20 K/uL (4.3-10.9) H D 10/29/21 15:41 RBC 4.17 M/uL (4.33-5.43) L 10/29/21 15:41 Hgb 13.1 g/dL (13.6-17.9) L 10/29/21 15:41 Hct 39.7 % (39.6-49.0) 10/29/21 15:41 MCV 95.0 fL (80-100) 10/29/21 15:41 MCH 31.3 pg (27.0-35.0) 10/29/21 15:41 MCHC 33.0 g/dL (32.0-36.0) 10/29/21 15:41 RDW 14.0 % (12.1-15.2) 10/29/21 15:41 Plt Count 311 K/uL (152-406) 10/29/21 15:41 MPV 7.2 fL (7.6-11.3) L 10/29/21 15:41 Neutrophils % 81.8 % (41.7-73.7) H 10/29/21 10:58 Lymphocytes % 11.9 % (15.3-44.8) L 10/29/21 10:58 Monocytes % 4.3 % (3.3-12.3) 10/29/21 10:58 Eosinophils % 1.4 % (0-4.4) 10/29/21 10:58 Basophils % 0.6 % (0-1.3) 10/29/21 10:58 Absolute Neutrophils 8.1 K/uL (1.8-8.0) H 10/29/21 10:58 Absolute Lymphocytes 1.2 K/uL (0.7-4.9) 10/29/21 10:58 Absolute Monocytes 0.4 K/uL (0.1-1.3) 10/29/21 10:58 Absolute Eosinophils 0.1 K/uL (0-0.5) 10/29/21 10:58 Absolute Basophils 0.1 K/uL (0-0.5) 10/29/21 10:58 PT 112.6 SECONDS (9.5-12.5) H 10/29/21 10:58 INR 9.57 H* 10/29/21 10:58 Sodium 130 mmol/L (136-145) L 10/29/21 10:58 Potassium 4.2 mmol/L (3.5-5.1) 10/29/21 10:58 Chloride 89 mmol/L (98-107) L 10/29/21 10:58 Carbon Dioxide 33 mmol/L (21-32) H 10/29/21 10:58 BUN 24 mg/dL (7-18) H 10/29/21 10:58 Creatinine 1.56 mg/dL (0.55-1.3) H 10/29/21 10:58 Estimated GFR 43 mL/min (=/>90) L 10/29/21 10:58 Glucose 303 mg/dL (74-106) H 10/29/21 10:58 Calcium 9.1 mg/dL (8.5-10.1) 10/29/21 10:58 Magnesium 2.0 mg/dL (1.8-2.4) 10/29/21 10:58 Total Bilirubin 0.6 mg/dL (0.2-1.0) 10/29/21 10:58 Direct Bilirubin 0.4 mg/dL (0-0.2) H 10/29/21 10:58 AST 76 U/L (15-37) H 10/29/21 10:58 ALT 45 U/L (12-78) 10/29/21 10:58 Alkaline Phosphatase 151 U/L (45-117) H 10/29/21 10:58 Rapid Troponin I < 0.02 ng/mL (0.0-0.045) 10/29/21 10:58 NT-Pro-B Natriuret Pep 1311 pg/mL (<450) H 10/29/21 10:58 Serum Total Protein 8.4 g/dL (6.4-8.2) H 10/29/21 10:58 Albumin 2.3 g/dL (3.4-5.0) L 10/29/21 10:58 Globulin 6.1 g/dL (2.3-3.5) H 10/29/21 10:58 Albumin/Globulin Ratio 0.4 (1.1-1.8) L 10/29/21 10:58 SARS-CoV-2 Rap RNA(RT-PCR) Negative (NEGATIVE) 10/29/21 12:38 Assessment And Plan - Plan Physical exam General: Obese HEENT: Atraumatic, Normocephalic Neck: Supple, JVD not distended Respiratory: Clear to auscultation bilaterally, Normal air movement Cardiovascular: No edema, Regular rate/rhythm Gastrointestinal: Other (Several abdominal hernias) Assessment/plan UTI Urine culture obtained on 10/29 growing methicillin-resistant Staphylococcus aureus. Suspect colonization as patient has had indwelling Hannah catheter for the past 10 years in the history of multiple UTIs. Patient empirically placed on gentamicin and unasyn per urology recommendations, and was improving. Patient is status post bedside cystoscopic examination performed on 11/03. No lesions/tumor is identified. Urology recommended discontinuing gentamicin and placing patient on oral Bactrim+ unasyn. Also recommended discharging patient on monotherapy oral Bactrim for total antibiotic duration of 14 days. Agree with Urology recommendations, however patient is allergic to sulfa antibiotics- as such we have switched Bactrim with doxycycline which will still have MRSA coverage.. Patient initially started IV antibiotics on 10/30, has a antibiotic completion date of 11/13. Recommend following up with Urology outpatient. Parker hematuria Urology following, likely secondary to elevated INR and cystitis. Morbid obesity Anemia Protein caloric malnutrition In CHF Diabetes -medical management per primary team -plan of care discussed with Dr. Estrada -thank you for consultation Physician Review: Patient Assessed, Agree with Above Assessment and Plan
--- NOTE | 2021-11-13 12:15 | PN ---
Date of Progress Note: 11/13/2021 Subjective: Patient was seen and examined at bedside. He is doing okay. Objective: Vital Signs: Have been reviewed and are stable. General: He is a morbidly obese male, in no acute distress. HEENT: Atraumatic head. Lungs: Clear to auscultation. Abdomen: Morbidly obese. Extremities: With chronic lower extremity cellulitis and venous congestive changes. Laboratory Data: Showing creatinine of 1.81, sodium of 135 and potassium of 3.9. CBC showing stable hemoglobin, hematocrit, and platelet count. Impression: Acute on chronic renal insufficiency. The patient's creatinine slightly worse, likely r elated to the ampicillin and interstitial nephritis. The patient's Bumex can be resumed. We will re sume Bumex at 2 mg p.o. b.i.d. and continue the spironolactone. 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 ANDREW/MEGHANA Voice ID: [id number] Report ID: [id number]
[2021-11-13] MEDS: POLYETHYL GLY 3350 17 GM/DOSE PO PRN (13:46)
[2021-11-13] MEDS: WARFARIN SODIUM 2 MG TAB PO SCH (17:20)
[2021-11-13] MEDS ORDERED: WARFARIN SODIUM 2 MG TAB PO ONE (18:00)
[2021-11-13] MEDS: MELATONIN 5 MG TABLET PO PRN (20:11)
[2021-11-13] MEDS: ACETAMINOPHEN 500 MG TAB PO PRN (20:11)
[2021-11-13] MEDS: BUMETANIDE 1 MG TABLET PO SCH (20:27)
--- NOTE | 2021-11-14 06:10 | P.PN ---
Date of Service: 11/14/21 Subjective: No changes overnight, continues to do well Continues with mild lower back pain, with intermittent moderate pain with certain movements ROS: 10 point ROS as noted above, otherwise negative Physical exam GEN: Alert, oriented, NAD. CV: irregularly irregular rhythm/ regular rate, chronic lymphedema of lower extremities. Pulm: nonlabored respirations on room air ABD: Soft, non-tender, +hernias, obese abdomen. Skin: Bilateral lower extremity venous stasis dermatitis Neuro: Normal speech, normal affect Genitourinary: sims with clear urine in bag. Problem List Parker hematuria, secondary to UtI and supratherapeutic INR, resolved UTI KAYLAH on CKD 3, resolved supratherapeutic INR resolved chronic atrial fibrillation on Coumadin Chronic diastolic CHF Chronic indwelling Sims catheter NIDDM 2 Hypertension Chronic back pain Supratherapeutic PT/INR likely secondary to drug-drug interaction. Patient received vitamin K in the ED prior to admission. s/p Vit K on 10/29 and 10/30, FFP given 10/30 Hematuria resolved. INR is now subtherapeutic. Improving. Nearly therapeutic Hemoglobin stable. continue warfarin, goal INR: 2-3 Unclear etiology of hematuria. Status post cystoscopy by urology-no source jeffrey ntified. Hematuria deemed secondary to chronic bladder infection/colonization in the context of severely elevated INR. CT urogram unremarkable right nonobstructing nephrolithiasis. Has history of recurrent UTIs, UA and culture sent on 10/29, concerning for possible UTI, initiated antibiotics on 10/29 Urine culture grew MRSA. ID suspect colonization. Patient has been improving, remains afebrile, resolution of leukocytosis on Unasyn + gent, ID changed antibiotics to Unasyn and doxycycline. Infectious disease to follow for antibiotic management. Bladder irrigation discontinued, three-way Sims catheter replaced with 18Fr coud tipped two-way by Dr. Morris on 11/11 Renal function initially worsened and nephrology was consulted. The cause of KAYLAH is multifactorial, possible intravascular depletion versus hypotension versus obstruction from blood clots possibly from obstruction as well. KAYLAH resolved. Respiratory status is stable. Continue Cardizem for atrial fibrillation. Metoprolol on hold due to soft blood pressure. Heart rate is controlled on the Cardizem. Insulin sliding scale for glucose management. Opioids as needed for acute on chronic back pain. Disposition: Social service assisting with arrangement for long-term care placement. Mistake in has been accepted, however bed will not be available until Wednesday at the earliest
[2021-11-14] MEDS: HYDROCODONE/APAP 5/325 MG TAB PO PRN ×3 (06:43→20:26)
[2021-11-14] MEDS: DOCUSATE NA 100 MG CAP PO SCH ×2 (08:58→20:27)
[2021-11-14] MEDS: DILTIAZEM HCL 120 MG SR CAP PO SCH ×2 (08:58→20:28)
[2021-11-14] MEDS: SERTRALINE HCL 50 MG TAB PO SCH (08:58)
[2021-11-14] MEDS: OXYBUTYNIN CHLORIDE 5 MG TAB PO SCH ×3 (08:58→20:26)
[2021-11-14] MEDS: BUMETANIDE 1 MG TABLET PO SCH ×2 (08:58→20:28)
[2021-11-14] MEDS: PANTOPRAZOLE 40MG TABLET PO SCH (08:58)
[2021-11-14] MEDS: NEPRO SHAKE 237 ML CAN PO SCH ×3 (08:59→20:28)
[2021-11-14] MEDS: VITAMIN D 5,000 UNIT CAP PO SCH (08:59)
[2021-11-14] MEDS: SPIRONOLACTONE 25 MG TABLET PO SCH (08:59)
[2021-11-14] MEDS: INSULIN -REGULAR HUMAN 50 UNIT/0.5 ML ML SQ SCH ×4 (09:07→20:23)
[2021-11-14 09:20] LABS: Protime INR 1.96
--- NOTE | 2021-11-14 12:15 | P.PN ---
Subjective Date of Service: 11/14/21 Chief Complaint: Parker hematuria, supratherapeutic INR Patient seen examined at bedside, complete antibiotics. Awaiting placement Review of Systems 10-point ROS is otherwise unremarkable Physical Examination - Vital Signs Temperature: 98.6 F Blood Pressure: 112/64 Pulse: 92 Respirations: 20 Pulse Ox (%): 95 - Studies Laboratory Last Values WBC 14.20 K/uL (4.3-10.9) H D 10/29/21 15:41 RBC 4.17 M/uL (4.33-5.43) L 10/29/21 15:41 Hgb 13.1 g/dL (13.6-17.9) L 10/29/21 15:41 Hct 39.7 % (39.6-49.0) 10/29/21 15:41 MCV 95.0 fL (80-100) 10/29/21 15:41 MCH 31.3 pg (27.0-35.0) 10/29/21 15:41 MCHC 33.0 g/dL (32.0-36.0) 10/29/21 15:41 RDW 14.0 % (12.1-15.2) 10/29/21 15:41 Plt Count 311 K/uL (152-406) 10/29/21 15:41 MPV 7.2 fL (7.6-11.3) L 10/29/21 15:41 Neutrophils % 81.8 % (41.7-73.7) H 10/29/21 10:58 Lymphocytes % 11.9 % (15.3-44.8) L 10/29/21 10:58 Monocytes % 4.3 % (3.3-12.3) 10/29/21 10:58 Eosinophils % 1.4 % (0-4.4) 10/29/21 10:58 Basophils % 0.6 % (0-1.3) 10/29/21 10:58 Absolute Neutrophils 8.1 K/uL (1.8-8.0) H 10/29/21 10:58 Absolute Lymphocytes 1.2 K/uL (0.7-4.9) 10/29/21 10:58 Absolute Monocytes 0.4 K/uL (0.1-1.3) 10/29/21 10:58 Absolute Eosinophils 0.1 K/uL (0-0.5) 10/29/21 10:58 Absolute Basophils 0.1 K/uL (0-0.5) 10/29/21 10:58 PT 112.6 SECONDS (9.5-12.5) H 10/29/21 10:58 INR 9.57 H* 10/29/21 10:58 Sodium 130 mmol/L (136-145) L 10/29/21 10:58 Potassium 4.2 mmol/L (3.5-5.1) 10/29/21 10:58 Chloride 89 mmol/L (98-107) L 10/29/21 10:58 Carbon Dioxide 33 mmol/L (21-32) H 10/29/21 10:58 BUN 24 mg/dL (7-18) H 10/29/21 10:58 Creatinine 1.56 mg/dL (0.55-1.3) H 10/29/21 10:58 Estimated GFR 43 mL/min (=/>90) L 10/29/21 10:58 Glucose 303 mg/dL (74-106) H 10/29/21 10:58 Calcium 9.1 mg/dL (8.5-10.1) 10/29/21 10:58 Magnesium 2.0 mg/dL (1.8-2.4) 10/29/21 10:58 Total Bilirubin 0.6 mg/dL (0.2-1.0) 10/29/21 10:58 Direct Bilirubin 0.4 mg/dL (0-0.2) H 10/29/21 10:58 AST 76 U/L (15-37) H 10/29/21 10:58 ALT 45 U/L (12-78) 10/29/21 10:58 Alkaline Phosphatase 151 U/L (45-117) H 10/29/21 10:58 Rapid Troponin I < 0.02 ng/mL (0.0-0.045) 10/29/21 10:58 NT-Pro-B Natriuret Pep 1311 pg/mL (<450) H 10/29/21 10:58 Serum Total Protein 8.4 g/dL (6.4-8.2) H 10/29/21 10:58 Albumin 2.3 g/dL (3.4-5.0) L 10/29/21 10:58 Globulin 6.1 g/dL (2.3-3.5) H 10/29/21 10:58 Albumin/Globulin Ratio 0.4 (1.1-1.8) L 10/29/21 10:58 SARS-CoV-2 Rap RNA(RT-PCR) Negative (NEGATIVE) 10/29/21 12:38 Assessment And Plan - Plan Physical exam General: Obese HEENT: Atraumatic, Normocephalic Neck: Supple, JVD not distended Respiratory: Clear to auscultation bilaterally, Normal air movement Cardiovascular: No edema, Regular rate/rhythm Gastrointestinal: Other (Several abdominal hernias) Assessment/plan UTI Urine culture obtained on 10/29 growing methicillin-resistant Staphylococcus aureus. Suspect colonization as patient has had indwelling Hannah catheter for the past 10 years in the history of multiple UTIs. Patient empirically placed on gentamicin and unasyn per urology recommendations, and was improving. Patient is status post bedside cystoscopic examination performed on 11/03. No lesions/tumor is identified. Urology recommended discontinuing gentamicin and placing patient on oral Bactrim+ unasyn. Also recommended discharging patient on monotherapy oral Bactrim for total antibiotic duration of 14 days. Agree with Urology recommendations, however patient is allergic to sulfa antibiotics- as s uch we have switched Bactrim with doxycycline which will still have MRSA coverage.. Patient initially started IV antibiotics on 10/30, has a antibiotic completion date of 11/13. Recommend following up with Urology outpatient. Parker hematuria Urology following, likely secondary to elevated INR and cystitis. Morbid obesity Anemia Protein caloric malnutrition In CHF Diabetes -medical management per primary team -plan of care discussed with Dr. Estrada -thank you for consultation Physician Review: Patient Assessed, Agree with Above Assessment and Plan
--- NOTE | 2021-11-14 12:37 | PN ---
Date of Progress Note: 11/14/2021 Subjective: The patient is seen and examined at bedside. He is doing okay. He has had bowel moveme nts. Objective: Vital Signs: Have been reviewed and are stable. General: Morbidly obese male, in no acute distress. HEENT: Atraumatic head. Lungs: Clear. Abdomen: Soft, obese, and nontender with poorly appreciated bowel sounds as well as breath sounds. Extremities: Chronic lower extremity edema with some venous congestive changes. Current Medications: Have been reviewed in detail. Impression: 1.Yhyxa-vu-[id number] renal insufficiency, currently with overall stable renal function. Creatinine is stable at 1.8. 2.Chronic lower extremity edema, on Bumex 2 mg b.i.d. and spironolactone 50 mg a day. Continue the same. 3.Urinary tract infection with chronic indwelling Hannah. The patient has finished course of ampicil beba, sulbactam, and doxycycline. Being followed by Infectious Disease. 4.Morbid obesity with severe debility and weakness. Plan: Overall, the patient is doing okay at this time. Continue diuretics. Monitor blood pressures closely. We may need to decrease diltiazem dosage if blood pressure continues to be soft. Avoid fu rther hypotension and nephrotoxins. He is okay to be discharged from Nephrology standpoint. ANDREW/MEGHANA Voice ID: [id number] Report ID: [id number]
[2021-11-14] MEDS: WARFARIN SODIUM 2 MG TAB PO SCH (17:48)
[2021-11-14] MEDS: MELATONIN 5 MG TABLET PO PRN (20:25)
[2021-11-15 03:52] LABS: Protime INR 2.29
[2021-11-15] MEDS: HYDROCODONE/APAP 5/325 MG TAB PO PRN ×2 (06:07→18:10)
[2021-11-15] MEDS: INSULIN -REGULAR HUMAN 50 UNIT/0.5 ML ML SQ SCH ×4 (07:30→21:00)
[2021-11-15] MEDS: NEPRO SHAKE 237 ML CAN PO SCH ×3 (09:00→20:09)
[2021-11-15] MEDS: OXYBUTYNIN CHLORIDE 5 MG TAB PO SCH ×3 (09:00→20:09)
--- NOTE | 2021-11-15 09:46 | P.PN ---
Subjective Date of Service: 11/15/21 Chief Complaint: Parker hematuria, supratherapeutic INR Subjective: Improving (Doing well no new complaints he does complain of some bladder irritation and pain) Review of Systems Genitourinary: As per HPI Physical Examination - Vital Signs Temperature: 97.0 F Blood Pressure: 124/63 Pulse: 96 Respirations: 18 Pulse Ox (%): 95 - Physical Exam General: Alert, In no apparent distress, Oriented x3 Respiratory: Clear to auscultation bilaterally Assessment & Plan - Problems (Diagnosis) (1) Sleep apnea Current Visit: Yes Status: Acute Plan: I strongly suspect the patient has obstructive sleep apnea he will need an outpatient sleep study but he cannot have a portable sleep study done patient is unlikely to go and have a sleep study done in in office facility is all the risk factors including snoring Qualifiers: Sleep apnea type: unspecified type Qualified Code(s): G47.30 - Sleep apnea, unspecified (2) Hematuria Current Visit: Yes Status: Acute Plan: Resolved patient had cystoscopy done by urology is currently stable his urine is clear planing of some pain in his pubic region labs reviewed INR is therapeutic awaiting placement continue with low-dose warfarin renal function stable discharge from nephrology point of view vital signs stable Qualifiers: Hematuria type: unspecified type Qualified Code(s): R31.9 - Hematuria, unspecified Discharge Plan: Intermediate Physician Review: Patient Assessed, Agree with Above Assessment and Plan
[2021-11-15] MEDS: VITAMIN D 5,000 UNIT CAP PO SCH (10:10)
[2021-11-15] MEDS: PANTOPRAZOLE 40MG TABLET PO SCH (10:10)
[2021-11-15] MEDS: DILTIAZEM HCL 120 MG SR CAP PO SCH ×2 (10:10→20:09)
[2021-11-15] MEDS: DOCUSATE NA 100 MG CAP PO SCH ×2 (10:11→20:09)
[2021-11-15] MEDS: SPIRONOLACTONE 25 MG TABLET PO SCH (10:11)
[2021-11-15] MEDS: SERTRALINE HCL 50 MG TAB PO SCH (10:12)
[2021-11-15] MEDS: BUMETANIDE 1 MG TABLET PO SCH ×2 (10:13→20:09)
[2021-11-15] MEDS: WARFARIN SODIUM 2 MG TAB PO SCH (18:11)
[2021-11-15] MEDS: MELATONIN 5 MG TABLET PO PRN (20:09)
[2021-11-16] MEDS: HYDROCODONE/APAP 5/325 MG TAB PO PRN ×3 (01:04→16:01)
[2021-11-16] MEDS ORDERED: MORPHINE 2 MG/ML SYR IV ONE (03:12)
[2021-11-16 05:39] LABS: Protime INR 2.34
[2021-11-16] MEDS: DILTIAZEM HCL 120 MG SR CAP PO SCH ×2 (09:00→20:51)
[2021-11-16] MEDS: NEPRO SHAKE 237 ML CAN PO SCH ×4 (09:00→20:53)
[2021-11-16] MEDS: SPIRONOLACTONE 25 MG TABLET PO SCH (09:00)
[2021-11-16] MEDS: VITAMIN D 5,000 UNIT CAP PO SCH (09:00)
[2021-11-16] MEDS: SERTRALINE HCL 50 MG TAB PO SCH (09:40)
[2021-11-16] MEDS: DOCUSATE NA 100 MG CAP PO SCH ×2 (09:41→20:52)
[2021-11-16] MEDS: PANTOPRAZOLE 40MG TABLET PO SCH (09:41)
[2021-11-16] MEDS: OXYBUTYNIN CHLORIDE 5 MG TAB PO SCH ×3 (09:42→20:53)
[2021-11-16] MEDS: BUMETANIDE 1 MG TABLET PO SCH ×2 (09:43→20:52)
[2021-11-16] MEDS: INSULIN -REGULAR HUMAN 50 UNIT/0.5 ML ML SQ SCH ×4 (09:43→20:51)
[2021-11-16] MEDS: OXYCODONE *CR* 20 MG TAB PO SCH ×2 (12:39→20:52)
--- NOTE | 2021-11-16 12:55 | P.PN ---
Subjective Date of Service: 11/16/21 Chief Complaint: Back pain and bladder spasm Patient has been complaining of severe discomfort in his lower back and bladder spasm and pain medications not helping is worse on movement Review of Systems General: Weakness Musculoskeletal: Back Pain Physical Examination - Vital Signs Temperature: 97.2 F Blood Pressure: 97/55 Pulse: 96 Respirations: 18 Pulse Ox (%): 94 - Physical Exam General: Alert, Oriented x3 Respiratory: Clear to auscultation bilaterally, Diminished Cardiovascular: Edema Assessment & Plan - Problems (Diagnosis) (1) Sleep apnea Current Visit: Yes Status: Acute Plan: I strongly suspect the patient has obstructive sleep apnea he will need an outpatient sleep study but he cannot have a portable sleep study done patient is unlikely to go and have a sleep study done in in office facility is all the risk factors including snoring Qualifiers: Sleep apnea type: unspecified type Qualified Code(s): G47.30 - Sleep apnea, unspecified (2) Back pain Current Visit: Yes Status: Acute Plan: Patient has been complaining of severe back pain and bladder spasm worse since his since his had a fall commonly prescribe narcotics have not been helping him I ordered some oxycodone as been scheduled to transfer to a long-term facility tomorrow he has had no further hematuria Qualifiers: Back pain location: low back pain Physician Review: Patient Assessed, Agree with Above Assessment and Plan
[2021-11-16] MEDS: WARFARIN SODIUM 2 MG TAB PO SCH (17:43)
[2021-11-17 03:38] LABS: Protime INR 2.52
[2021-11-17 03:51] LABS: Magnesium 2.2 mg/dL (1.8-2.4); Phosphorus 4.1 mg/dL (2.5-4.9); Potassium 3.6 mmol/L (3.5-5.1)
[2021-11-17] MEDS: HYDROCODONE/APAP 5/325 MG TAB PO PRN ×2 (05:32→12:28)
--- NOTE | 2021-11-17 06:29 | P.PN ---
Date of Service: 11/17/21 Subjective: No acute events overnight, patient reports continues to feel well with the exception of some back pain Back pain has become more tolerable with change of pain medications over the weekend Otherwise without any new concerns ROS: 10 point ROS as noted above, otherwise negative Physical exam GEN: Alert, oriented, NAD. CV: irregularly irregular rhythm/ regular rate, chronic lymphedema of lower extremities. Pulm: nonlabored respirations on room air ABD: Soft, non-tender, +hernias, obese abdomen. Skin: Bilateral lower extremity venous stasis dermatitis, swelling significantly decreased Neuro: Normal speech, normal affect Genitourinary: sims with clear urine in bag. Problem List Parker hematuria, secondary to UtI and supratherapeutic INR, resolved UTI, resolved KAYLAH on CKD 3, resolved supratherapeutic INR resolved chronic atrial fibrillation on Coumadin Chronic diastolic CHF Chronic indwelling Sims catheter NIDDM 2 Hypertension Chronic back pain Supratherapeutic PT/INR likely secondary to drug-drug interaction. Patient received vitamin K in the ED prior to admission. s/p Vit K on 10/29 and 10/30, FFP given 10/30 Hematuria resolved. Coumadin restarted, and patient is now therapeutic. Hemoglobin stable. goal INR: 2-3 Unclear etiology of hematuria. s/p cystoscopy by urology-no source identified. Hematuria deemed secondary to chronic bladder infection/colonization in the context of severely elevated INR. CT urogram unremarkable right nonobstructing nephrolithiasis. Has history of recurrent UTIs, UA and culture sent on 10/29, concerning for possible UTI, initiated antibiotics on 10/29 Urine culture grew MRSA. ID suspect colonization. Patient has been improving, remains afebrile, resolution of leukocytosis on Unasyn + gent, ID changed antibiotics to Unasyn and doxycycline. Infectious disease to follow for antibiotic management. Completed antibiotics Bladder irrigation discontinued, three-way Sims catheter replaced with 18Fr coud tipped two-way by Dr. Morris on 11/11 Renal function initially worsened and nephrology was consulted. The cause of KAYLAH is multifactorial, possible intravascular depletion versus hypotension versus obstruction from blood clots possibly from obstruction as well. KAYLAH initially resolved, now worsening again, suspect patient is too dry intravascularly now. patient is more hypotensive now as well - possibly from increased pain meds and dehydration I did now Dr. Hoffman worked up for Ms. will give 250cc NS bolus and run additional 250cc over next few hours hold bumex/spironolactone Respiratory status is stable. Continue Cardizem for atrial fibrillation. Metoprolol on hold due to soft blood pressure. Heart rate is controlled on the Cardizem. Insulin sliding scale for glucose management. Opioids as needed for acute on chronic back pain. Disposition: Social service assisting with arrangement for long-term care placement. Facility is waiting on bed which they expect to be delivered today anticipate dc in 1-2 days, pending renal function Time Spent Managing Pts Care (In Minutes): 35
[2021-11-17] MEDS ORDERED: NA CHLORIDE 0.9% 250 ML IV ONE ×2 (08:00→09:00)
[2021-11-17] MEDS: INSULIN -REGULAR HUMAN 50 UNIT/0.5 ML ML SQ SCH ×4 (08:57→20:42)
[2021-11-17] MEDS: DOCUSATE NA 100 MG CAP PO SCH ×2 (08:58→20:41)
[2021-11-17] MEDS: SERTRALINE HCL 50 MG TAB PO SCH (08:58)
[2021-11-17] MEDS: DILTIAZEM HCL 120 MG SR CAP PO SCH ×2 (08:59→20:39)
[2021-11-17] MEDS: SPIRONOLACTONE 25 MG TABLET PO SCH (09:00)
[2021-11-17] MEDS ORDERED: POTASSIUM 25 MEQ EFFERV TAB PO ONE (09:00)
[2021-11-17] MEDS: NEPRO SHAKE 237 ML CAN PO SCH ×3 (09:00→20:41)
[2021-11-17] MEDS: BUMETANIDE 1 MG TABLET PO SCH (09:00)
[2021-11-17] MEDS: PANTOPRAZOLE 40MG TABLET PO SCH (09:01)
[2021-11-17] MEDS: OXYCODONE *CR* 20 MG TAB PO SCH ×2 (09:01→20:40)
[2021-11-17] MEDS: OXYBUTYNIN CHLORIDE 5 MG TAB PO SCH ×3 (09:01→20:41)
[2021-11-17] MEDS: VITAMIN D 5,000 UNIT CAP PO SCH (09:02)
--- NOTE | 2021-11-17 12:01 | P.PN ---
Subjective Date of Service: 11/17/21 Chief Complaint: Back pain and bladder spasm Patient seen examined at bedside, complete antibiotics. ID will sign off. Review of Systems 10-point ROS is otherwise unremarkable Physical Examination - Vital Signs Temperature: 97.1 F Blood Pressure: 112/69 Pulse: 88 Respirations: 20 Pulse Ox (%): 92 - Studies Laboratory Last Values WBC 14.20 K/uL (4.3-10.9) H D 10/29/21 15:41 RBC 4.17 M/uL (4.33-5.43) L 10/29/21 15:41 Hgb 13.1 g/dL (13.6-17.9) L 10/29/21 15:41 Hct 39.7 % (39.6-49.0) 10/29/21 15:41 MCV 95.0 fL (80-100) 10/29/21 15:41 MCH 31.3 pg (27.0-35.0) 10/29/21 15:41 MCHC 33.0 g/dL (32.0-36.0) 10/29/21 15:41 RDW 14.0 % (12.1-15.2) 10/29/21 15:41 Plt Count 311 K/uL (152-406) 10/29/21 15:41 MPV 7.2 fL (7.6-11.3) L 10/29/21 15:41 Neutrophils % 81.8 % (41.7-73.7) H 10/29/21 10:58 Lymphocytes % 11.9 % (15.3-44.8) L 10/29/21 10:58 Monocytes % 4.3 % (3.3-12.3) 10/29/21 10:58 Eosinophils % 1.4 % (0-4.4) 10/29/21 10:58 Basophils % 0.6 % (0-1.3) 10/29/21 10:58 Absolute Neutrophils 8.1 K/uL (1.8-8.0) H 10/29/21 10:58 Absolute Lymphocytes 1.2 K/uL (0.7-4.9) 10/29/21 10:58 Absolute Monocytes 0.4 K/uL (0.1-1.3) 10/29/21 10:58 Absolute Eosinophils 0.1 K/uL (0-0.5) 10/29/21 10:58 Absolute Basophils 0.1 K/uL (0-0.5) 10/29/21 10:58 PT 112.6 SECONDS (9.5-12.5) H 10/29/21 10:58 INR 9.57 H* 10/29/21 10:58 Sodium 130 mmol/L (136-145) L 10/29/21 10:58 Potassium 4.2 mmol/L (3.5-5.1) 10/29/21 10:58 Chloride 89 mmol/L (98-107) L 10/29/21 10:58 Carbon Dioxide 33 mmol/L (21-32) H 10/29/21 10:58 BUN 24 mg/dL (7-18) H 10/29/21 10:58 Creatinine 1.56 mg/dL (0.55-1.3) H 10/29/21 10:58 Estimated GFR 43 mL/min (=/>90) L 10/29/21 10:58 Glucose 303 mg/dL (74-106) H 10/29/21 10:58 Calcium 9.1 mg/dL (8.5-10.1) 10/29/21 10:58 Magnesium 2.0 mg/dL (1.8-2.4) 10/29/21 10:58 Total Bilirubin 0.6 mg/dL (0.2-1.0) 10/29/21 10:58 Direct Bilirubin 0.4 mg/dL (0-0.2) H 10/29/21 10:58 AST 76 U/L (15-37) H 10/29/21 10:58 ALT 45 U/L (12-78) 10/29/21 10:58 Alkaline Phosphatase 151 U/L (45-117) H 10/29/21 10:58 Rapid Troponin I < 0.02 ng/mL (0.0-0.045) 10/29/21 10:58 NT-Pro-B Natriuret Pep 1311 pg/mL (<450) H 10/29/21 10:58 Serum Total Protein 8.4 g/dL (6.4-8.2) H 10/29/21 10:58 Albumin 2.3 g/dL (3.4-5.0) L 10/29/21 10:58 Globulin 6.1 g/dL (2.3-3.5) H 10/29/21 10:58 Albumin/Globulin Ratio 0.4 (1.1-1.8) L 10/29/21 10:58 SARS-CoV-2 Rap RNA(RT-PCR) Negative (NEGATIVE) 10/29/21 12:38 Assessment And Plan - Plan Physical exam General: Obese HEENT: Atraumatic, Normocephalic Neck: Supple, JVD not distended Respiratory: Clear to auscultation bilaterally, Normal air movement Cardiovascular: No edema, Regular rate/rhythm Gastrointestinal: Other (Several abdominal hernias) Assessment/plan UTI Urine culture obtained on 10/29 growing methicillin-resistant Staphylococcus aureus. Suspect colonization as patient has had indwelling Hannah catheter for the past 10 years in the history of multiple UTIs. Patient empirically placed on gentamicin and unasyn per urology recommendations, and was improving. Patient is status post bedside cystoscopic examination performed on 11/03. No lesions/tumor is identified. Urology recommended discontinuing gentamicin and placing patient on oral Bactrim+ unasyn. Also recommended discharging patient on monotherapy oral Bactrim for total antibiotic duration of 14 days. Agree with Urology recommendations, however patient is allergic to sulfa antibiotics- as such we have switched Bactrim with doxycycline which will still have MRSA coverage.. Patient initially started IV antibiotics on 10/30, has a antibiotic completion date of 11/13. Recommend following up with Urology outpatient. Parker hematuria Urology following, likely secondary to elevated INR and cystitis. Morbid obesity Anemia Protein caloric malnutrition In CHF Diabetes -medical management per primary team -plan of care discussed with Dr. Estrada -thank you for consultation Physician Review: Patient Assessed, Agree with Above Assessment and Plan
[2021-11-17] MEDS: WARFARIN SODIUM 2 MG TAB PO SCH (17:43)
--- NOTE | 2021-11-17 21:55 | P.PN ---
Date of Service: 11/17/21 Vital Signs Temp Pulse Resp BP Pulse Ox 97.6 F 110 H 18 114/52 L 93 11/17/21 16:00 11/17/21 20:39 11/17/21 20:40 11/17/21 20:39 11/17/21 20:40 Medications Acetaminophen (Acetaminophen 500 Mg Tab) 500 mg PO Q6H PRN PRN Reason: Pain scale 2-4 (Mild) Last Admin: 11/13/21 20:11 Dose: 500 mg Documented by: Hydrocodone Bitart/Acetaminophen (Hydrocodone/Apap 5/325 Mg Tab) 1 tab PO Q6H PRN PRN Reason: Pain scale 5-7 (Moderate) Last Admin: 11/17/21 12:28 Dose: 1 tab Documented by: Cetylpyridinium Chloride/Menthol (Cepacol Lozenges) 1 shira PO Q4H PRN PRN Reason: COUGH Last Admin: 11/08/21 17:03 Dose: 1 shira Documented by: Cholecalciferol (Vitamin D 5,000 Unit Cap) 5,000 unit PO DAILY [facility] Last Admin: 11/17/21 09:02 Dose: 5,000 unit Documented by: Diltiazem HCl (Diltiazem Hcl 120 Mg Sr Cap) 120 mg PO BID [facility] Last Admin: 11/17/21 20:39 Dose: 120 mg Documented by: Docusate Sodium (Docusate Na 100 Mg Cap) 100 mg PO BID [facility] Last Admin: 11/17/21 20:41 Dose: 100 mg Documented by: Enteral Nutritional Formula (Nepro Shake 237 Ml Can) 237 ml PO TID [facility] Last Admin: 11/17/21 20:41 Dose: Not Given Documented by: Insulin Human Regular (Insulin -Regular Human 50 Unit/0.5 Ml Ml) 0 unit SQ [facility]; Protocol Last Admin: 11/17/21 20:42 Dose: 2 unit Documented by: Melatonin (Melatonin 5 Mg Tablet) 5 mg PO BEDTIME PRN PRN PRN Reason: INSOMNIA Last Admin: 11/15/21 20:09 Dose: 5 mg Documented by: Ondansetron HCl (Ondansetron 4 Mg/2 Ml Vial) 4 mg IV Q6HP PRN PRN Reason: NAUSEA / VOMITING Oxybutynin Chloride (Oxybutynin Chloride 5 Mg Tab) 5 mg PO TID [facility] Last Admin: 11/17/21 20:41 Dose: 5 mg Documented by: Oxycodone HCl (Oxycodone *Cr* 20 Mg Tab) 20 mg PO Q12HR [facility] Last Admin: 11/17/21 20:40 Dose: 20 mg Documented by: Pantoprazole Sodium (Pantoprazole 40mg Tablet) 40 mg PO DAILY [facility]; Protocol Last Admin: 11/17/21 09:01 Dose: 40 mg Documented by: Polyethylene Glycol (Polyethyl Gly 3350 17 Gm/Dose) 17 gm PO DAILY PRN PRN Reason: CONSTIPATION Last Admin: 11/13/21 13:46 Dose: 17 gm Documented by: Sertraline HCl (Sertraline Hcl 50 Mg Tab) 75 mg PO DAILY [facility] Last Admin: 11/17/21 08:58 Dose: 75 mg Documented by: Sodium Chloride (Flush Normal Saline 10 Ml) 10 ml IV BID [facility] Last Admin: 11/17/21 20:41 Dose: 10 ml Documented by: Sodium Chloride (Sodium Chloride Irrig Solution 3,000 Ml Bag) 0 ml IRR CONT [facility] Last Admin: 11/03/21 10:35 Dose: 3,000 ml Documented by: Spironolactone (Spironolactone 25 Mg Tablet) 50 mg PO DAILY [facility] Last Admin: 11/17/21 09:00 Dose: Not Given Documented by: Warfarin Sodium (Warfarin Sodium 2 Mg Tab) 2 mg PO DAILY 5 PM [facility] Last Admin: 11/17/21 17:43 Dose: 2 mg Documented by: Assessment/ Plan: Nephrology No dyspnea +FINK No chest pain. Weakness. No acute events overnight Vitals, medications, blood work and imaging reviewed in the chart General: In no apparent distress, Oriented x3, Cooperative HEENT: Atraumatic Neck: Supple Respiratory: Normal respiratory effort Cardiovascular: Regular rate/rhythm, Edema Gastrointestinal: Soft and benign, No guarding Musculoskeletal: No clubbing, No contractures Integumentary: No rashes, No cyanosis Neurological: Normal speech Blood work reviewed in the chart. Imagings Data: EXAM DESCRIPTION: CTAbdomen Pelvis Wo Contrast - 10/30/2021 8:25 a CLINICAL HISTORY: suprapubic pain, elevated INR, worse renal fxn COMPARISON: Abdomen Pelvis W Contrast dated 09/24/2021; Stone Protocol dated 04/22/2018; Abdomen Pelvis W Contrast dated 08/21/2016; [facility] Protocol dated 05/24/2016 TECHNIQUE: CT of the abdomen and pelvis was performed. All CT scans are performed using dose optimization technique as appropriate and may include automated exposure control or mA/KV adjustment according to patient size. FINDINGS: Lower chest: Small left pleural effusion. Dependent atelectasis. Liver: No acute abnormality or suspicious lesions. Biliary: Cholecystectomy. Similar extrahepatic biliary ductal dilatation which may be related to the postcholecystectomy state. Stomach: Angel-en-Y gastric bypass. Duodenum: No significant focal abnormality. Pancreas: No significant abnormality. Spleen: No significant abnormality. Adrenal: No suspicious lesions. Kidney/ureter: No hydronephrosis. Nonobstructive right nephrolithiasis. Left renal cortical thinning. No hydronephrosis. Retroperitoneum: No retroperitoneal adenopathy. Vascular: IVC filter. Atherosclerosis. Bowel: No significant focal abnormality. Peritoneum: Abdominal wall laxity. Fat containing right inguinal hernia. Bladder: The bladder is mostly decompressed around a Hannah catheter. Gas within the bladder may be from instrumentation. Reproductive: No adnexal masses. Bones: No acute fracture. Degenerative changes are present in the hips and spine. Other: n/a IMPRESSION: No acute intra-abdominal or pelvic finding. Hannah catheter within the bladder. Gas within the bladder is presumably related to instrumentation. No hydronephrosis. EXAM DESCRIPTION: RAD - Chest Single View - 10/30/2021 5:52 am CLINICAL HISTORY: SOB COMPARISON: Chest Single View dated 09/30/2021; Chest Single View dated 09/24/2021; Chest Single View dated 12/13/2019; Chest Single View dated 07/12/2019 FINDINGS: Lines: None. Lungs: Worsened aeration of the lungs bilaterally with increasing diffuse opacities and prominence of the pulmonary vasculature. Pleural: Small effusions difficult to exclude. Cardiac: Cardiomegaly . Bones: No acute fractures. Other: IMPRESSION: Worsened pulmonary edema compared with 09/30/2021. EXAM DESCRIPTION: US - Renal Ultrasound-Complete - 10/30/2021 6:14 am CLINICAL HISTORY: KAYLAH COMPARISON: Abdomen Pelvis W Contrast dated 09/24/2021 FINDINGS: Limited by patient's body habitus. The right kidney measures 9.1 cm. No hydronephrosis. The left kidney was not visualized. IMPRESSION: Markedly limited due to body habitus. The left kidney was not visualized. No right-sided hydronephrosis. Conclusions/Impression: KAYLAH in the setting of hypotension. CKD III Hematuria due to trauma -No NSAIDs Hypokalemia -Continue Spironolactone -Potassium prn HTN with CKD/ CHF complicated by hypotension -Continue Diltiazem Diastolic CHF, chronic -Low sodium diet -Reduce Bumex Daily -Continue Spironolactone DM II with hyperglycemia -RISS Moderate malnutrition Hypoalbuminemia -Continue Nepro Anemia in chronic illness Iron deficiency 14% -Monitor H&H -sp IV iron Bladder spasm with pain -Continue Oxybutynin
[2021-11-18 04:22] LABS: Protime INR 2.74
[2021-11-18 04:25] LABS: Magnesium 2.2 mg/dL (1.8-2.4); Phosphorus 3.8 mg/dL (2.5-4.9); Potassium 4.4 mmol/L (3.5-5.1)
[2021-11-18] MEDS: NEPRO SHAKE 237 ML CAN PO SCH ×3 (09:00→20:21)
[2021-11-18] MEDS: INSULIN -REGULAR HUMAN 50 UNIT/0.5 ML ML SQ SCH ×4 (09:23→20:22)
[2021-11-18] MEDS: SERTRALINE HCL 50 MG TAB PO SCH (09:24)
[2021-11-18] MEDS: PANTOPRAZOLE 40MG TABLET PO SCH (09:24)
[2021-11-18] MEDS: OXYCODONE *CR* 20 MG TAB PO SCH ×2 (09:24→20:20)
[2021-11-18] MEDS: DOCUSATE NA 100 MG CAP PO SCH ×2 (09:24→20:20)
[2021-11-18] MEDS: DILTIAZEM HCL 120 MG SR CAP PO SCH ×2 (09:24→20:21)
[2021-11-18] MEDS: OXYBUTYNIN CHLORIDE 5 MG TAB PO SCH ×3 (09:24→20:21)
[2021-11-18] MEDS: VITAMIN D 5,000 UNIT CAP PO SCH (09:25)
[2021-11-18] MEDS ORDERED: WARFARIN SODIUM 1 MG TAB PO SCH ×2 (17:00)
--- NOTE | 2021-11-18 17:07 | P.PN ---
Subjective Date of Service: 11/18/21 Chief Complaint: Back pain and bladder spasm patient has no new complaint. No hematuria. Physical Examination - Vital Signs Temperature: 98.2 F Blood Pressure: 110/61 Pulse: 98 Respirations: 18 Pulse Ox (%): 92 Assessment And Plan - Plan Physical exam GEN: Alert, oriented, NAD. CV: irregularly irregular rhythm/rate, chronic lymphedema of lower extremities. Pulm: Breath sounds diminished bilateral, no rhonchi or rales. ABD: Soft, non-tender, +hernias, obese abdomen. Skin: Bilateral lower extremity venous stasis dermatitis and skin xerosis. Neuro: Normal speech, normal affect Genitourinary: sims with clear urine in the urine bag. Problem List Parker hematuria UTI KAYLAH on CKD 3 supratherapeutic INR chronic atrial fibrillation on Coumadin Chronic diastolic CHF Chronic indwelling Sims catheter NIDDM 2 Hypertension Chronic back pain Supratherapeutic PT/INR likely secondary to drug-drug interaction. Patient received vitamin K in the ED prior to admission s/p Vit K on 10/29 and 10/30, FFP given 10/30 Hematuria resolved. INR is therapeutic. Hemoglobin stable. Status post cystoscopy by urology-no source identified. Hematuria deemed secondary to chronic bladder infection/colonization in the context of severely elevated INR. CT urogram unremarkable with right nonobstructing nephrolithiasis. Has history of recurrent UTIs, UA and culture sent on 10/29, concerning for possible UTI, initiated antibiotics on 10/29 Urine culture grew MRSA. ID suspect colonization. Patient has been asymptomatic. Leukocytosis resolved. UTI treated with Unasyn + gent, ID changed antibiotics to Unasyn and doxycycline. Patient completed antibiotic therapy. Status post bladder irrigation via, three-way Sims catheter. Dr. Morris later changed 3-way Sims catheter to 18Fr two-way coud tipped catheter. Coumadin dose adjusted to 2 mg daily.INR is stable. Target INR of 2-3. Renal function initially worsened and nephrology was consulted. The cause of KAYLAH is multifactorial, possible intravascular depletion versus hypotension versus obstruction from blood clots possibly from obstruction as well. Serum creatinine level fluctuating but has been having over the past 1 week. Continue Bumex. Nephrology also added Aldactone. Nephrology is adjusting diuretic doses. Respiratory status is stable. Continue Cardizem for atrial fibrillation. Metoprolol on hold due to soft blood pressure. Heart rate is controlled on the Cardizem. Insulin sliding scale for glucose management. Opioids as needed for chronic back pain. Disposition: Patient accepted to a long-term care facility for tomorrow morning. Plan is to discharge tomorrow a.m. Physician Review: Patient Assessed, Agree with Above Assessment and Plan
[2021-11-18] MEDS: HYDROCODONE/APAP 5/325 MG TAB PO PRN (18:51)
--- NOTE | 2021-11-18 19:47 | P.PN ---
Date of Service: 11/18/21 Vital Signs Temp Pulse Resp BP Pulse Ox 98.2 F 98 H 18 110/61 92 11/18/21 17:09 11/18/21 17:09 11/18/21 18:51 11/18/21 17:09 11/18/21 18:51 Medications Acetaminophen (Acetaminophen 500 Mg Tab) 500 mg PO Q6H PRN PRN Reason: Pain scale 2-4 (Mild) Last Admin: 11/13/21 20:11 Dose: 500 mg Documented by: Hydrocodone Bitart/Acetaminophen (Hydrocodone/Apap 5/325 Mg Tab) 1 tab PO Q6H PRN PRN Reason: Pain scale 5-7 (Moderate) Last Admin: 11/18/21 18:51 Dose: 1 tab Documented by: Bumetanide (Bumetanide 1 Mg Tablet) 2 mg PO DAILY [facility] Cetylpyridinium Chloride/Menthol (Cepacol Lozenges) 1 shira PO Q4H PRN PRN Reason: COUGH Last Admin: 11/08/21 17:03 Dose: 1 shira Documented by: Cholecalciferol (Vitamin D 5,000 Unit Cap) 5,000 unit PO DAILY [facility] Last Admin: 11/18/21 09:25 Dose: 5,000 unit Documented by: Diltiazem HCl (Diltiazem Hcl 120 Mg Sr Cap) 120 mg PO BID [facility] Last Admin: 11/18/21 09:24 Dose: 120 mg Documented by: Docusate Sodium (Docusate Na 100 Mg Cap) 100 mg PO BID [facility] Last Admin: 11/18/21 09:24 Dose: 100 mg Documented by: Enteral Nutritional Formula (Nepro Shake 237 Ml Can) 237 ml PO TID [facility] Last Admin: 11/18/21 14:00 Dose: 237 ml Documented by: Insulin Human Regular (Insulin -Regular Human 50 Unit/0.5 Ml Ml) 0 unit SQ ACHS [facility]; Protocol Last Admin: 11/18/21 17:39 Dose: 2 unit Documented by: Melatonin (Melatonin 5 Mg Tablet) 5 mg PO BEDTIME PRN PRN PRN Reason: INSOMNIA Last Admin: 11/15/21 20:09 Dose: 5 mg Documented by: Ondansetron HCl (Ondansetron 4 Mg/2 Ml Vial) 4 mg IV Q6HP PRN PRN Reason: NAUSEA / VOMITING Oxybutynin Chloride (Oxybutynin Chloride 5 Mg Tab) 5 mg PO TID [facility] Last Admin: 11/18/21 14:15 Dose: 5 mg Documented by: Oxycodone HCl (Oxycodone *Cr* 20 Mg Tab) 20 mg PO Q12HR [facility] Last Admin: 11/18/21 09:24 Dose: 20 mg Documented by: Pantoprazole Sodium (Pantoprazole 40mg Tablet) 40 mg PO DAILY [facility]; Protocol Last Admin: 11/18/21 09:24 Dose: 40 mg Documented by: Polyethylene Glycol (Polyethyl Gly 3350 17 Gm/Dose) 17 gm PO DAILY PRN PRN Reason: CONSTIPATION Last Admin: 11/13/21 13:46 Dose: 17 gm Documented by: Sertraline HCl (Sertraline Hcl 50 Mg Tab) 75 mg PO DAILY [facility] Last Admin: 11/18/21 09:24 Dose: 75 mg Documented by: Sodium Chloride (Flush Normal Saline 10 Ml) 10 ml IV BID [facility] Last Admin: 11/18/21 09:00 Dose: 10 ml Documented by: Sodium Chloride (Sodium Chloride Irrig Solution 3,000 Ml Bag) 0 ml IRR CONT [facility] Last Admin: 11/03/21 10:35 Dose: 3,000 ml Documented by: Spironolactone (Spironolactone 25 Mg Tablet) 50 mg PO DAILY [facility] Last Admin: 11/17/21 09:00 Dose: Not Given Documented by: Warfarin Sodium (Warfarin Sodium 1 Mg Tab) 1 mg PO SuTuThSa@1700 [facility] Last Admin: 11/18/21 17:39 Dose: 1 mg Documented by: Warfarin Sodium (Warfarin Sodium 2 Mg Tab) 2 mg PO MoWeFr@1700 [facility] Assessment/ Plan: Nephrology No dyspnea +FINK No chest pain. Weakness. No acute events overnight Vitals, medications, blood work and imaging reviewed in the chart General: In no apparent distress, Oriented x3, Cooperative HEENT: Atraumatic Neck: Supple Respiratory: Normal respiratory effort Cardiovascular: Regular rate/rhythm, Edema Gastrointestinal: Soft and benign, No guarding Musculoskeletal: No clubbing, No contractures Integumentary: No rashes, No cyanosis Neurological: Normal speech Blood work reviewed in the chart. Imagings Data: EXAM DESCRIPTION: CTAbdomen Pelvis Wo Contrast - 10/30/2021 8:25 a CLINICAL HISTORY: suprapubic pain, elevated INR, worse renal fxn COMPARISON: Abdomen Pelvis W Contrast dated 09/24/2021; [facility] Protocol dated 04/22/2018; Abdomen Pelvis W Contrast dated 08/21/2016; [facility] Protocol dated 05/24/2016 TECHNIQUE: CT of the abdomen and pelvis was performed. All CT scans are performed using dose optimization technique as appropriate and may include automated exposure control or mA/KV adjustment according to patient size. FINDINGS: Lower chest: Small left pleural effusion. Dependent atelectasis. Liver: No acute abnormality or suspicious lesions. Biliary: Cholecystectomy. Similar extrahepatic biliary ductal dilatation which may be related to the postcholecystectomy state. Stomach: Angel-en-Y gastric bypass. Duodenum: No significant focal abnormality. Pancreas: No significant abnormality. Spleen: No significant abnormality. Adrenal: No suspicious lesions. Kidney/ureter: No hydronephrosis. Nonobstructive right nephrolithiasis. Left renal cortical thinning. No hydronephrosis. Retroperitoneum: No retroperitoneal adenopathy. Vascular: IVC filter. Atherosclerosis. Bowel: No significant focal abnormality. Peritoneum: Abdominal wall laxity. Fat containing right inguinal hernia. Bladder: The bladder is mostly decompressed around a Hannah catheter. Gas within the bladder may be from instrumentation. Reproductive: No adnexal masses. Bones: No acute fracture. Degenerative changes are present in the hips and spine. Other: n/a IMPRESSION: No acute intra-abdominal or pelvic finding. Ahnnah catheter within the bladder. Gas within the bladder is presumably related to instrumentation. No hydronephrosis. EXAM DESCRIPTION: RAD - Chest Single View - 10/30/2021 5:52 am CLINICAL HISTORY: SOB COMPARISON: Chest Single View dated 09/30/2021; Chest Single View dated 09/24/2021; Chest Single View dated 12/13/2019; Chest Single View dated 07/12/2019 FINDINGS: Lines: None. Lungs: Worsened aeration of the lungs bilaterally with increasing diffuse opacities and prominence of the pulmonary vasculature. Pleural: Small effusions difficult to exclude. Cardiac: Cardiomegaly . Bones: No acute fractures. Other: IMPRESSION: Worsened pulmonary edema compared with 09/30/2021. EXAM DESCRIPTION: US - Renal Ultrasound-Complete - 10/30/2021 6:14 am CLINICAL HISTORY: KAYLAH COMPARISON: Abdomen Pelvis W Contrast dated 09/24/2021 FINDINGS: Limited by patient's body habitus. The right kidney measures 9.1 cm. No hydronephrosis. The left kidney was not visualized. IMPRESSION: Markedly limited due to body habitus. The left kidney was not visualized. No right-sided hydronephrosis. Conclusions/Impression: KAYLAH in the setting of hypotension. CKD III Hematuria due to trauma -No NSAIDs Hypokalemia -Continue Spironolactone -Potassium prn HTN with CKD/ CHF complicated by hypotension -Continue Diltiazem Diastolic CHF, chronic -Low sodium diet -Continue Bumex Daily -Continue Spironolactone DM II with hyperglycemia -RISS Moderate malnutrition Hypoalbuminemia -Continue Nepro Anemia in chronic illness Iron deficiency 14% -Monitor H&H -sp IV iron Bladder spasm with pain -Continue Oxybutynin
[2021-11-18 20:04] VITALS: O2SAT 94
[2021-11-18] MEDS: MELATONIN 5 MG TABLET PO PRN (20:29)
[2021-11-19 04:08] LABS: Absolute Lymphocytes (CBC) 1.7 K/uL (0.7-4.9); Hematocrit 36.9 % (39.6-49.0); Lymphocytes % 21.3 % (15.3-44.8); MPV 7.9 fL (7.6-11.3); RBC Red Blood Cell Count 3.92 M/uL (4.33-5.43)
[2021-11-19 04:15] LABS: Protime INR 2.87
[2021-11-19 04:32] LABS: Albumin 2.4 g/dL (3.4-5.0); Bilirubin Total 0.8 mg/dL (0.2-1.0); Magnesium 2.4 mg/dL (1.8-2.4); Phosphorus 4.2 mg/dL (2.5-4.9); Potassium 3.9 mmol/L (3.5-5.1); Protein, Total 8.3 g/dL (6.4-8.2); Uric Acid 9.9 mg/dL (3.5-7.2)
[2021-11-19] MEDS: NEPRO SHAKE 237 ML CAN PO SCH ×2 (07:54→13:46)
[2021-11-19] MEDS ORDERED: POTASSIUM CL SA 10 MEQ TAB PO ONE (09:00)
[2021-11-19] MEDS ORDERED: BUMETANIDE 1 MG TABLET PO SCH (09:00)
[2021-11-19] MEDS ORDERED: POTASSIUM 25 MEQ EFFERV TAB PO ONE (09:00)
[2021-11-19] MEDS: INSULIN -REGULAR HUMAN 50 UNIT/0.5 ML ML SQ SCH ×2 (09:04→11:58)
[2021-11-19] MEDS: DILTIAZEM HCL 120 MG SR CAP PO SCH (09:05)
[2021-11-19] MEDS: DOCUSATE NA 100 MG CAP PO SCH (09:05)
[2021-11-19] MEDS: SERTRALINE HCL 50 MG TAB PO SCH (09:05)
[2021-11-19] MEDS: PANTOPRAZOLE 40MG TABLET PO SCH (09:06)
[2021-11-19] MEDS: VITAMIN D 5,000 UNIT CAP PO SCH (09:06)
[2021-11-19] MEDS: OXYCODONE *CR* 20 MG TAB PO SCH (09:06)
[2021-11-19] MEDS: OXYBUTYNIN CHLORIDE 5 MG TAB PO SCH (09:06)
--- NOTE | 2021-11-19 11:37 | P.DS ---
Admission Date: 10/29/21 Discharge Date: 11/19/21 Disposition: TRANSFER TO LONG-TERM Discharge Condition: FAIR Reason for Admission: Back pain and bladder spasm - Problems (1) Hematuria Current Visit: Yes Status: Acute Qualifiers: Hematuria type: unspecified type Qualified Code(s): R31.9 - Hematuria, unspecified (2) Acute on chronic diastolic heart failure Current Visit: No Status: Acute (3) Acute renal failure Current Visit: No Status: Acute Qualifiers: Acute renal failure type: unspecified Qualified Code(s): N17.9 - Acute kidney failure, unspecified (4) Catheter-associated urinary tract infection Onset Date: 01/10/19 Current Visit: No Status: Acute Qualifiers: Indwelling urinary catheter type: indwelling urethral catheter Encounter type: initial encounter Qualified Code(s): T83.511A - Infection and inflammatory reaction due to indwelling urethral catheter, initial encounter; N39.0 - Urinary tract infection, site not specified (5) Coumadin toxicity Onset Date: 09/04/14 Current Visit: No Status: Acute (6) Edema of left lower extremity Current Visit: No Status: Acute (7) Chronic a-fib Onset Date: 01/10/19 Current Visit: No Status: Chronic (8) History of pulmonary embolus (PE) Onset Date: 05/26/16 Current Visit: No Status: Chronic (9) Hypertension Onset Date: 04/29/18 Current Visit: No Status: Chronic Qualifiers: Hypertension type: primary hypertension Qualified Code(s): I10 - Essential (primary) hypertension (10) Lymphedema Onset Date: 04/29/18 Current Visit: No Status: Chronic (11) Morbid obesity Onset Date: 08/24/16 Current Visit: No Status: Chronic Brief History of Present Illness: 81yo M, PMH: A. fib on Coumadin, prior PE, CHF, HTN, chronic back pain, chronic bilateral lower extremity lymphedema, DM2 Presents to the ER via EMS due to elevated INR and hematuria. History unable to be obtained from patient at time of my exam. Patient with some confusion and slow to answer after receiving 2 mg total of Dilaudid. He was alert and oriented x2, but he would get lost midway through his sentence and fall asleep. ER physician reports patient has been having hematuria for few days, he had a home nurse check his INR at home which was greater than 6, so he was sent to the ER. Apparently on transportation to the ER, patient was dropped from his [employer] lift. Patient is complaining of worsening of his chronic back pain. CT of his spine was performed and negative for acute process. Patient was in the ED 2 days prior for testicular/groin pain, and diagnosed with candidal balanitis, treated with nystatin topical. Patient is bedbound, has chronic indwelling Hannah catheter, has history of UTIs. Urine bag containing bloodstained urine. UA suggested UTI and concurrent hematuria. Patient hospitalized for further management. Hospital Course: Problem List Parker hematuria Catheter associated UTI KAYLAH on CKD 3 supratherapeutic INR chronic atrial fibrillation on Coumadin Chronic diastolic CHF Chronic indwelling Hannah catheter NIDDM 2 Hypertension Chronic back pain Supratherapeutic PT/INR likely secondary to drug-drug interaction. Patient received vitamin K in the ED prior to admission s/p Vit K on 10/29 and 10/30, FFP given 10/30. INR became subtherapeutic. Status post bladder irrigation via three-way Hannah catheter. Hematuria resolved. Dr. Morris later changed 3-way Hannah catheter to 18Fr two-way coud tipped catheter. Coumadin resumed and the dose adjusted to keep INR stable between a target of 2- 3. Hemoglobin was stable. Status post cystoscopy by urology-no source identified. Hematuria deemed secondary to chronic bladder infection/colonization in the context of severely elevated INR. CT urogram done was unremarkable with right nonobstructing nephrolithiasis. Patient wth history of recurrent UTIs, UA and culture sent on 10/29, concerning for possible UTI, initiated antibiotics on 10/29 Urine culture grew MRSA. ID saw patient and suspect colonization. Patient has been asymptomatic. UTI treated with Unasyn + gent, ID later changed antibiotics to Unasyn and doxycycline. Leukocytosis resolved. Patient completed antibiotic therapy. Renal function initially worsened and nephrology was consulted. The cause of KAYLAH is multifactorial, possible intravascular depletion versus hypotension versus obstruction from blood clots possibly from obstruction as well. KAYLAH improved to baseline and then serum creatinine level trended up over the past 1 week. Nephrology suspect overdiuresis with Bumex. Bumex dose adjusted to 2 mg daily. Aldactone added by nephrology. Respiratory status was stable. Continued Cardizem for atrial fibrillation. Metoprolol held due to soft blood pressure and not resumed on discharge. Heart rate was controlled on the Cardizem. Insulin sliding scale for glucose management. OxyContin and as needed [place] for chronic back pain. Patient has been accepted for long-term care. He is clinically stable for discharge. Vital Signs/Physical Exam: Temp Pulse Resp BP Pulse Ox 97.4 F 85 14 129/62 94 11/19/21 08:00 11/19/21 08:00 11/19/21 08:00 11/19/21 08:00 11/19/21 08:00 General: Alert, In no apparent distress, Obese HEENT: Mucous membr. moist/pink Neck: JVD not distended Respiratory: Diminished (Bilateral, no rhonchi or rales.) Cardiovascular: Normal S1 S2, Edema (Bilateral legs), Irregular heart rate/rhythm Gastrointestinal: Normal bowel sounds, Soft and benign, Other (Large abdomen, with large ventral hernia.) Musculoskeletal: No tenderness, Swelling (Bilateral legs) Integumentary: Other (Bilateral venous stasis dermatitis and xerosis) Neurological: Normal speech, Other (Globally weak, weakness more pronounced in the lower extremities.) Laboratory Data at Discharge: WBC 8.10 K/uL (4.3-10.9) 11/19/21 03:37 Hgb 12.4 g/dL (13.6-17.9) L 11/19/21 03:37 Hct 36.9 % (39.6-49.0) L 11/19/21 03:37 Plt Count 224 K/uL (152-406) 11/19/21 03:37 PT 33.3 SECONDS (9.5-12.5) H 11/19/21 03:37 INR 2.87 11/19/21 03:37 APTT 70.0 SECONDS (24.3-36.9) H 10/30/21 14:25 Sodium 132 mmol/L (136-145) L 11/19/21 03:37 Potassium 3.9 mmol/L (3.5-5.1) 11/19/21 03:37 BUN 51 mg/dL (7-18) H 11/19/21 03:37 Creatinine 2.88 mg/dL (0.55-1.3) H 11/19/21 03:37 Glucose 265 mg/dL (74-106) H 11/19/21 03:37 Uric Acid 9.9 mg/dL (3.5-7.2) H 11/19/21 03:37 Phosphorus 4.2 mg/dL (2.5-4.9) 11/19/21 03:37 Magnesium 2.4 mg/dL (1.8-2.4) 11/19/21 03:37 Total Bilirubin 0.8 mg/dL (0.2-1.0) 11/19/21 03:37 AST 93 U/L (15-37) H 11/19/21 03:37 ALT 75 U/L (12-78) 11/19/21 03:37 Alkaline Phosphatase 203 U/L (45-117) H 11/19/21 03:37 Home Medications: Bumetanide [Bumex] 1 tab PO BID 10/30/21 Diltiazem HCl [Diltiazem 24Hr Cd] 1 cap PO BID 10/30/21 Pantoprazole Sodium 1 tab PO DAILY 10/30/21 Sertraline HCl 75 mg PO DAILY 10/30/21 Bumetanide [Bumex*] 2 mg PO DAILY tab 11/19/21 Cholecalciferol (Vitamin D3) [Vitamin D 5,000 IU Cap*] 5,000 unit PO DAILY cap 11/19/21 Docusate [Colace Cap*] 100 mg PO BID cap 11/19/21 Hydrocodone 5/APAP 325 [[place] 5/325*] 1 tab PO Q6H PRN #20 tab 11/19/21 Insulin -Regular Human [Novolin -R*] See Protocol SQ ACHS ml 11/19/21 Melatonin 5 mg PO BEDTIME PRN PRN tablet 11/19/21 Nepro Shake [Nepro*] 237 ml PO TID can 11/19/21 Oxybutynin Chloride [Ditropan*] 5 mg PO TID tab 11/19/21 Oxycodone HCl [Oxycontin] 20 mg PO Q12H #60 tab.er.12h 11/19/21 Polyethyl Gly 3350 [Glycolax*] 17 gm PO DAILY PRN udbot 11/19/21 Spironolactone [Aldactone*] 50 mg PO DAILY tab 11/19/21 Warfarin Sodium [Coumadin*] 1 mg PO SuTuThSa@1700 tab 11/19/21 Warfarin Sodium [Coumadin*] 2 mg PO MoWeFr@1700 tab 11/19/21 glyBURIDE [Glyburide] 1.25 mg PO DAILY #30 tablet 11/19/21 New Medications: glyBURIDE [Glyburide] 1.25 mg PO DAILY #30 tablet Hydrocodone 5/APAP 325 [[place] 5/325*] 1 tab PO Q6H PRN #20 tab PRN Reason: Pain Scale 5-7 (Moderate) Oxycodone HCl [Oxycontin] 20 mg PO Q12H #60 tab.er.12h Physician Discharge Instructions: Check PT/INR within 3 days, please call PCP or [facility] attending physician for coumadin dose adjustment. Diet: ADA Activity: Fall precautions Followup: NONE,NONE [Primary Care Provider] - Time spent managing pt's care (in minutes): 42
[2021-11-19] MEDS: HYDROCODONE/APAP 5/325 MG TAB PO PRN (12:27)
[2021-11-19 15:58] VITALS: TEMP 97.3
[2021-11-19 15:59] VITALS: BP 106/71
[2021-11-19] MEDS ORDERED: WARFARIN SODIUM 2 MG TAB PO SCH (17:00)
--- NOTE | 2021-11-19 21:20 | P.PN ---
Date of Service: 11/19/21 Vital Signs Temp Pulse Resp BP Pulse Ox 97.3 F 89 14 106/71 92 11/19/21 15:56 11/19/21 15:56 11/19/21 15:56 11/19/21 15:56 11/19/21 15:56 Assessment/ Plan: Nephrology No dyspnea +FINK No chest pain. Weakness. No acute events overnight Vitals, medications, blood work and imaging reviewed in the chart General: In no apparent distress, Oriented x3, Cooperative. Obese. HEENT: Atraumatic Neck: Supple Respiratory: Normal respiratory effort Cardiovascular: Regular rate/rhythm, Edema Gastrointestinal: Soft and benign, No guarding Musculoskeletal: No clubbing, No contractures Integumentary: No rashes, No cyanosis Neurological: Normal speech Blood work reviewed in the chart. Imagings Data: EXAM DESCRIPTION: CTAbdomen Pelvis Wo Contrast - 10/30/2021 8:25 a CLINICAL HISTORY: suprapubic pain, elevated INR, worse renal fxn COMPARISON: Abdomen Pelvis W Contrast dated 09/24/2021; Stone Protocol dated 04/22/2018; Abdomen Pelvis W Contrast dated 08/21/2016; Stone Protocol dated 05/24/2016 TECHNIQUE: CT of the abdomen and pelvis was performed. All CT scans are performed using dose optimization technique as appropriate and may include automated exposure control or mA/KV adjustment according to patient size. FINDINGS: Lower chest: Small left pleural effusion. Dependent atelectasis. Liver: No acute abnormality or suspicious lesions. Biliary: Cholecystectomy. Similar extrahepatic biliary ductal dilatation which may be related to the postcholecystectomy state. Stomach: Angel-en-Y gastric bypass. Duodenum: No significant focal abnormality. Pancreas: No significant abnormality. Spleen: No significant abnormality. Adrenal: No suspicious lesions. Kidney/ureter: No hydronephrosis. Nonobstructive right nephrolithiasis. Left renal cortical thinning. No hydronephrosis. Retroperitoneum: No retroperitoneal adenopathy. Vascular: IVC filter. Atherosclerosis. Bowel: No significant focal abnormality. Peritoneum: Abdominal wall laxity. Fat containing right inguinal hernia. Bladder: The bladder is mostly decompressed around a Hannah catheter. Gas within the bladder may be from instrumentation. Reproductive: No adnexal masses. Bones: No acute fracture. Degenerative changes are present in the hips and spine. Other: n/a IMPRESSION: No acute intra-abdominal or pelvic finding. Hannah catheter within the bladder. Gas within the bladder is presumably related to instrumentation. No hydronephrosis. EXAM DESCRIPTION: RAD - Chest Single View - 10/30/2021 5:52 am CLINICAL HISTORY: SOB COMPARISON: Chest Single View dated 09/30/2021; Chest Single View dated 09/24/2021; Chest Single View dated 12/13/2019; Chest Single View dated 07/12/2019 FINDINGS: Lines: None. Lungs: Worsened aeration of the lungs bilaterally with increasing diffuse opacities and prominence of the pulmonary vasculature. Pleural: Small effusions difficult to exclude. Cardiac: Cardiomegaly . Bones: No acute fractures. Other: IMPRESSION: Worsened pulmonary edema compared with 09/30/2021. EXAM DESCRIPTION: US - Renal Ultrasound-Complete - 10/30/2021 6:14 am CLINICAL HISTORY: KAYLAH COMPARISON: Abdomen Pelvis W Contrast dated 09/24/2021 FINDINGS: Limited by patient's body habitus. The right kidney measures 9.1 cm. No hydronephrosis. The left kidney was not visualized. IMPRESSION: Markedly limited due to body habitus. The left kidney was not visualized. No right-sided hydronephrosis. Conclusions/Impression: KAYLAH in the setting of hypotension CKD III Hematuria due to trauma -No NSAIDs Hypokalemia -Continue Spironolactone -Potassium prn HTN with CKD/ CHF complicated by hypotension -Continue Diltiazem Diastolic CHF, chronic -Low sodium diet -Continue Bumex Daily -Continue Spironolactone DM II with hyperglycemia -RISS Moderate malnutrition Hypoalbuminemia -Continue Nepro Anemia in chronic illness Iron deficiency 14% -Monitor H&H -sp IV iron Bladder spasm with pain -Continue Oxybutynin Case reviewed with Dr. Pope
== END 2021-11-19 16:38 | DRG 698 ==
LOC: ER 10:14 → ERHOLD 16:03 → 4TH 11-03 20:17 → 2ND 11-08 14:48
PROVIDERS: ADMIT Hospitalist; ATTEND Hospitalist
PROC: 0TJB8ZZ Inspection of Bladder, Via Natural or Artificial Opening Endoscopic (ICD-10-PCS; principal; 2021-11-03)
DX: T83.511A Infection and inflammatory reaction due to indwelling urethral catheter, initial encounter (principal); N17.0 Acute kidney failure with tubular necrosis; I50.33 Acute on chronic diastolic (congestive) heart failure; D68.32 Hemorrhagic disorder due to extrinsic circulating anticoagulants; I48.20 Chronic atrial fibrillation, unspecified; I13.0 Hypertensive heart and chronic kidney disease with heart failure and stage 1 through stage 4 chronic kidney disease, or unspecified chronic kidney disease; E87.1 Hypo-osmolality and hyponatremia; E44.0 Moderate protein-calorie malnutrition; Z68.44 Body mass index [BMI] 60.0-69.9, adult; N12 Tubulo-interstitial nephritis, not specified as acute or chronic; N39.0 Urinary tract infection, site not specified; R31.9 Hematuria, unspecified; T45.515A Adverse effect of anticoagulants, initial encounter; E11.22 Type 2 diabetes mellitus with diabetic chronic kidney disease; E11.65 Type 2 diabetes mellitus with hyperglycemia; N18.30 Chronic kidney disease, stage 3 unspecified; I95.9 Hypotension, unspecified; D50.9 Iron deficiency anemia, unspecified; E66.01 Morbid (severe) obesity due to excess calories; E88.09 Other disorders of plasma-protein metabolism, not elsewhere classified; N32.89 Other specified disorders of bladder; B95.62 Methicillin resistant Staphylococcus aureus infection as the cause of diseases classified elsewhere; G89.29 Other chronic pain; M54.9 Dorsalgia, unspecified; I87.2 Venous insufficiency (chronic) (peripheral); K43.9 Ventral hernia without obstruction or gangrene; I89.0 Lymphedema, not elsewhere classified; N20.0 Calculus of kidney; E86.0 Dehydration; Z79.01 Long term (current) use of anticoagulants; Z86.711 Personal history of pulmonary embolism; Z20.822 Contact with and (suspected) exposure to COVID-19; G47.30 Sleep apnea, unspecified; K59.00 Constipation, unspecified; Z74.01 Bed confinement status
CPT/HCPCS: 36415; 70450; 71045; 72125; 72131; 74176; 74178; 76770; 80048; 80053; 80076; 80170; 81003; 81015; 82533; 82947; 83605; 83735; 83880; 84100; 84145; 84484; 84550; 85025; 85027; 85610; 85730; 86140; 86850; 86900; 86901; 87040; 87077; 87086; 87088; 87186; 93005; 94760; 96372; 96374; 96375; 97110; 97162; 99285; J0295; J1170; J1580; J2270; J2405; J2916; J3010; J3430; J7030; J7040; J7050; P9047; P9059; Q9967; U0003